=== PATIENT | female | born 1955 | race African-American/Black ===

== ENCOUNTER 2016-09-24 01:41 | Inpatient (IN) | payer OTHER, MEDICARE, MEDICAID ==
[2016-09-24] MEDS ORDERED: NS 0.9% 1000 ML* 1,000 ML IV ONE (01:58)
[2016-09-24] MEDS ORDERED: Albuterol/Ipratropium NEB.SOL* Albuterol 2.5 MG/Ipratropium 0.5 MG 3 ML INH ONE (01:58)
[2016-09-24] MEDS ORDERED: methylPREDNISolone 125 MG* 2 ML VIAL IV ONE (01:58)
[2016-09-24 02:11] LABS: Comments Flag Yes; Hematocrit 41 % (35-47); Hemoglobin 12.8 g/dl (12.0-16.0); Mean Corpuscular HGB Conc 31 g/dl (31-36); Mean Corpuscular Hemoglobin 25 pg (27-31); Mean Corpuscular Volume 82 fL (80-97); Mean Platelet Volume 9 um3 (7.4-10.4); Red Blood Count 5.05 10^6/ul (4.0-5.4); Red Cell Distribution Width 25 % (10.5-15); White Blood Count 6.4 10^3/ul (3.5-10.8)
[2016-09-24 02:12] LABS: Add Diff/Slide Review? Slide Review Added
[2016-09-24 02:21] LABS: Albumin 3.7 g/dL (3.2-5.2); BUN/Creatinine Ratio 7.5 (8-20); Calcium 8.6 mg/dL (8.6-10.3); EGFR African American 67.8 (>60); EGFR Non-African American 52.7 (>60); Potassium 3.2 mmol/L (3.5-5.0); Total Protein 6.7 g/dL (6.4-8.9)
[2016-09-24 02:34] LABS: Add Path Review? YES; Hypochromasia 1+; Platelet Morphology Large; Target Cells 1+
--- NOTE | 2016-09-24 02:47 | ED ---
radha Bello Timothy, scribed for Adair Langston MD on 09/24/16 at 0204 . Shortness of Breath - HPI Summary HPI Summary: Adrianna Robledo is a 61 yo female presenting to [facility] with SOB since 09/23/16 morning, worsening through the night. She also C/O 8/10 pain. She states her Sx are present at rest. She has self-medicated with inhalers. She is sometimes on 3L O2 at home. Her MHx includes Afib, angina, CHF, autoimplanted defibrillator, HTN, COPD, chronic renal failure, anxiety, tobacco use. - History of Current Complaint Time Seen by Provider: 09/24/16 01:48 Hx Obtained From: Patient Onset/Duration: Gradual Onset, Lasting Minutes, Lasting Hours, Still Present, Worse Since - now Current Severity: Moderate Dyspnea At: Rest - Allergy/Home Medications Allergies/Adverse Reactions: Allergies Allergy/AdvReac Type Severity Reaction Status Date / Time Aspirin Allergy Severe Difficulty Verified 09/24/16 01:55 Breathing PMH/Surg Hx/FS Hx/Imm Hx Cardiovascular History: Reports: Hx Angina, Hx Auto Implanted Cardiovert Defib - defibrillator, Hx Congestive Heart Failure, Hx Hypertension, Other Cardiovascular Problems/Disorders - FLUID IN ANKLES, 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, AFIB Respiratory History: Reports: Hx Chronic Obstructive Pulmonary Disease (COPD), Other Respiratory Problems/Disorders - ON AT NIGHT History: Reports: Hx Chronic Renal Failure Musculoskeletal History: Reports: Hx Orthopedic Injury Psychiatric History: Reports: Hx Anxiety - Cancer History Cancer Type, Location and Year: lymphoma/12/23 - Surgical History Surgery Procedure, Year, and Place: hernia repair/orif right foot Infectious Disease History: Denies: Traveled Outside the [place] in Last 30 Days - Family History Known Family History: Positive: Other - Father - [place] Negative: Cardiac Disease, Hypertension, Diabetes - Social History Alcohol Use: Occasionally Alcohol Amount: 3-4 drinks/month Hx Substance Use: No Substance Use Type: Reports: None Hx Tobacco Use: Yes Smoking Status (MU): Light Every Day Tobacco Smoker Type: Cigarettes Have You Smoked in the Last Year: Yes Review of Systems Constitutional: Negative Eyes: Negative ENT: Negative Cardiovascular: Negative Positive: Shortness Of Breath Gastrointestinal: Negative Genitourinary: Negative Musculoskeletal: Negative Skin: Negative Neurological: Negative Psychological: Normal All Other Systems Reviewed And Are Negative: Yes Physical Exam Triage Information Reviewed: Yes Vital Signs On Initial Exam: Initial Vitals Temp Pulse Resp BP Pulse Ox 97.9 F 102 29 155/97 96 09/24/16 01:44 09/24/16 01:44 09/24/16 01:44 09/24/16 01:44 09/24/16 01:44 Vital Signs Reviewed: Yes Appearance: Positive: Well-Appearing - moderate sob Skin: Positive: Warm Head/Face: Positive: Normal Head/Face Inspection Eyes: Positive: CRISTINE ENT: Positive: Hearing grossly normal Respiratory/Lung Sounds: Positive: Decreased Breath Sounds, Rales - bibasilar, Wheezes - scattered bilat Cardiovascular: Positive: RRR Abdomen Description: Positive: Nontender, Soft Bowel Sounds: Positive: Present Musculoskeletal: Positive: Strength/ROM Intact Neurological: Positive: Sensory/Motor Intact, Alert, Oriented to Person Place, Time Psychiatric: Positive: Affect/Mood Appropriate Diagnostics - Vital Signs Vital Signs Temp Pulse Resp BP Pulse Ox 09/24/16 01:44 97.9 F 102 29 155/97 96 - Laboratory Lab Results: Lab Results 09/24/16 09/24/16 Range/Units 01:57 01:57 WBC 6.4 (3.5-10.8) 10^3/ul RBC 5.05 (4.0-5.4) 10^6/ul Hgb 12.8 (12.0-16.0) g/dl Hct 41 (35-47) % MCV 82 (80-97) fL MCH 25 L (27-31) pg MCHC 31 (31-36) g/dl RDW 25 H (10.5-15) % Plt Count 148 L (150-450) 10^3/ul MPV 9 (7.4-10.4) um3 Neut % (Auto) 83.9 H (38-83) % Lymph % (Auto) 6.1 L (25-47) % [place] % (Auto) 9.3 H (1-9) % Eos % (Auto) 0.4 (0-6) % Baso % (Auto) 0.3 (0-2) % Absolute Neuts (auto) 5.3 (1.5-7.7) 10^3/ul Absolute Lymphs (auto) 0.4 L (1.0-4.8) 10^3/ul Absolute Monos (auto) 0.6 (0-0.8) 10^3/ul Absolute Eos (auto) 0 (0-0.6) 10^3/ul Absolute Basos (auto) 0 (0-0.2) 10^3/ul Absolute Nucleated RBC 0.18 10^3/ul Nucleated RBC % 2.9 Platelet Morphology Large Normal RBC Morphology Not Reportable Hypochromasia 1+ Target Cells 1+ Hem Pathologist Commnt Pending Sodium 141 (133-145) mmol/L Potassium 3.2 L (3.5-5.0) mmol/L Chloride 98 L (101-111) mmol/L Carbon Dioxide 35 H (22-32) mmol/L Anion Gap 8 (2-11) mmol/L BUN 8 (6-24) mg/dL Creatinine 1.06 H (0.51-0.95) mg/dL Est GFR ( Amer) 67.8 (>60) Est GFR (Non-Af Amer) 52.7 (>60) BUN/Creatinine Ratio 7.5 L (8-20) Glucose 127 H (70-100) mg/dL Calcium 8.6 (8.6-10.3) mg/dL Total Bilirubin 1.00 (0.2-1.0) mg/dL AST 11 L (13-39) U/L ALT 11 (7-52) U/L Alkaline Phosphatase 91 (34-104) U/L Total Protein 6.7 (6.4-8.9) g/dL Albumin 3.7 (3.2-5.2) g/dL Globulin 3.0 (2-4) g/dL Albumin/Globulin Ratio 1.2 (1-3) Result Diagrams: 09/24/16 01:57 09/24/16 01:57 Lab Statement: Any lab studies that have been ordered have been reviewed, and results considered in the medical decision making process. - Radiology CXR Xray Interpretation: Positive (See Comments) - Pulmonary vascular congestion, cardiomegaly Radiology Interpretation Completed By: ED Physician - EKG 0249 Cardiac Rate: NL - 92 BPM EKG Interpretation: NSR @ 92 BPM, PVC's. Re-Evaluation - Re-Evaluation First Eval Re-Evaluation Time: 04:45 Change: Improved - mild;ly improved but still sob with minimal exertion, will admit Course/Dx - Course Assessment/Plan: Adrianna Robledo is a 61 yo female [place] [facility] [place]B since this morning worsening throughout the day. In the ED she was given albuterol breathing treatment, Lasix, and solu-medrol, as well as IV fluids. Her CXR suggested cardiomegaly and pulmonary vascular congestion. Her EKG showed NSR with PVC's. After clinical examination, review of her imaging studies , review of her lab work, and discussion with Dr. Gutiérrez, she will be admitted to [facility] for further evaluation and treatment of COPD and CHF. - Diagnoses Differential Diagnosis/HQI/PQRI: Positive: CHF, COPD Exacerbation Provider Diagnoses: COPD (chronic obstructive pulmonary disease), CHF (congestive heart failure) - Physician Notifications Discussed Care of Patient With: 0512 - Dr. Gutiérrez (hospitalist) - discussed Pt condition, agrees to admit Pt. Instructed by Provider To: Admit As Inpatient - Critical Care Time Critical Care Time: 30-74 min Discharge - Discharge Plan Condition: Stable Disposition: ADMITTED TO [facility] Discharge Disposition Comment: admitted to [facility] for further evaluation and treatment of COPD and CHF. Referrals: Blake Stuart MD [Primary Care Provider] - The documentation as recorded by the radha zapata Timothy accurately reflects the service I personally performed and the decisions made by me, Adair Langston MD.
[2016-09-24] MEDS ORDERED: Furosemide IV* 10 MG/ML 10 ML VIAL (100 MG) IV ONE (03:40)
[2016-09-24] MEDS ORDERED: Albuterol 2.5 MG/3 ML NEB.SOL* (0.083%) INH PRN (06:33)
[2016-09-24] MEDS ORDERED: Melatonin (NF) 3 MG TAB PO PRN (06:35)
[2016-09-24] MEDS ORDERED: Ondansetron INJ* 2 MG/ML VIAL IV PRN (06:35)
--- NOTE | 2016-09-24 07:46 | RAD ---
HISTORY: Shortness of breath, substernal chest pain COMPARISONS: February 04, 2016 VIEWS: 2: Frontal dual-energy and lateral views of the chest. FINDINGS: CARDIOMEDIASTINAL SILHOUETTE: The cardiac silhouette is enlarged. The cardiomediastinal silhouette is otherwise normal. SHERLEY: The sherley are normal. PLEURA: The costophrenic angles are sharp. No pleural abnormalities are noted. LUNG PARENCHYMA: There is a diffuse reticular pattern with indistinct pulmonary vessels. ABDOMEN: The upper abdomen is clear. There is no subphrenic gas. BONES AND SOFT TISSUES: No bone or soft tissue abnormalities are noted. OTHER: A left-sided ICD is noted IMPRESSION: CARDIOMEGALY WITH PULMONARY INTERSTITIAL EDEMA
[2016-09-24] MEDS ORDERED: Potassium Chlor TAB* 10 MEQ TAB.ER PO ONE (08:08)
[2016-09-24] MEDS: Albuterol 2.5 MG/3 ML NEB.SOL* (0.083%) INH SCH ×3 (08:50→19:57)
[2016-09-24] MEDS: Tiotropium CAP.INH* CAP.INH/18 MCG INH SCH (08:50)
[2016-09-24] MEDS: Mometasone/Formoter 200/5 MDI INH SCH ×3 (08:51→20:11)
[2016-09-24] MEDS ORDERED: Spiriva Inhaler DEVICE* 1 EACH DEVICE ONE (09:00)
[2016-09-24] MEDS: Docusate CAP* 100 MG PO SCH ×2 (10:15→20:25)
[2016-09-24] MEDS: Lisinopril TAB* 10 MG PO SCH (10:16)
[2016-09-24] MEDS: Amiodarone TAB* 200 MG PO SCH (10:16)
[2016-09-24] MEDS: Carvedilol TAB* 25 MG PO SCH ×2 (10:17→20:26)
[2016-09-24] MEDS: Azithromycin IV(*) 500 MG in NS 0.9% 250 ML* 250 ML IVPB SCH (10:18)
[2016-09-24] MEDS: Spironolactone TAB* 25 MG PO SCH (10:20)
[2016-09-24] MEDS: Torsemide TAB* 20 MG PO SCH ×2 (10:20→20:26)
[2016-09-24] MEDS: traMADol TAB* 50 MG PO PRN ×2 (10:21→20:30)
[2016-09-24 11:57] LABS: Hematocrit 40 % (35-47); Hemoglobin 12.7 g/dl (12.0-16.0); Mean Corpuscular HGB Conc 32 g/dl (31-36); Mean Corpuscular Hemoglobin 26 pg (27-31); Mean Corpuscular Volume 82 fL (80-97); Mean Platelet Volume 9 um3 (7.4-10.4); Red Blood Count 4.92 10^6/ul (4.0-5.4); Red Cell Distribution Width 25 % (10.5-15); White Blood Count 4.7 10^3/ul (3.5-10.8)
[2016-09-24 12:00] LABS: Comments Flag Yes
[2016-09-24 12:14] LABS: BUN/Creatinine Ratio 9.8 (8-20); Calcium 8.4 mg/dL (8.6-10.3); EGFR African American 63.6 (>60); EGFR Non-African American 49.5 (>60); Potassium 3.3 mmol/L (3.5-5.0)
[2016-09-24] MEDS: ALPRAZolam TAB* 0.5 MG PO PRN (14:04)
[2016-09-24] MEDS: traZODone TAB* 100 MG PO SCH (20:25)
--- NOTE | 2016-09-24 22:14 | HP ---
ADMISSION HISTORY AND PHYSICAL: DATE OF ADMISSION: 09/24/16 TIME OF MY EVALUATION: 8 a.m. PRIMARY CARE PROVIDER: Blake Stuart MD. CHIEF COMPLAINT: Shortness of breath. HISTORY OF PRESENT ILLNESS: Ms. Robledo is a pleasant 61-year-old female who comes to the emergency room with a complaint of shortness of breath for the past 3 days, worsening progressively and worst at night. The patient states that her symptoms are present at rest. She is trying to use her inhalers, but these are not helping her very much. She has a dry cough. There is no sputum production. She denies any fever. She is sometimes on 3 L of oxygen at home. She did have a sick contact, specifically her girlfriend who had an upper respiratory viral infection. The patient states that she is coughing, but cannot get any mucus to come up. She denies nausea and vomiting. There has been no diarrhea. She does report diminished appetite, but has been drinking appropriately. She thinks she has been gaining weight and she saw her primary care doctor who recommended she come into the hospital. I believe he prescribed an antibiotic and I think she stated that she was taking that at home , but does not remember the name. The patient does have all of her other medications and is taking them reliably. The patient is followed by Dr. Garrido, the cupola hoist operator in the [facility] as well as Dr. Jc. Dr. Garrido follows her for congestive heart failure and I think she also has an BiV-ICD and Dr. Jc follows her for her history of lymphoma for which she is in remission. PAST MEDICAL HISTORY: 1. COPD. 2. Atrial fibrillation. 3. History of angina. 4. CHF. 5. Auto implanted defibrillator. 6. Hypertension. 7. Chronic renal failure. 8. Anxiety. 9. Tobacco abuse - recently quit. ADDITIONAL PAST MEDICAL HISTORY: 1. Lymphoma, not currently undergoing treatment. 2. Slight congestive heart failure with ejection fraction noted between 20% to 25% with history of atrial fibrillation and ventricular tachycardia. 3. In-situ biventricular pacemaker. 4. Morbid obesity. 5. Obstructive sleep apnea - on CPAP. 6. History of continued nicotine use. 7. CKD - stage 3. 8. Hyperlipidemia. OUTPATIENT MEDICATIONS: 1. Multivitamin 1 tab by mouth twice daily. 2. Potassium chloride 40 mEq by mouth daily. 3. Alprazolam 0.5 mg by mouth 3 times daily. 4. Cordarone 200 mg by mouth daily (amiodarone). 5. Coreg 50 mg by mouth twice daily. 6. Lisinopril 20 mg by mouth daily. 7. Spironolactone 50 mg by mouth daily. 8. Torsemide 20 mg by mouth twice daily. 9. Tramadol 50 to 100 mg by mouth every 6 hours p.r.n. pain. 10. Trazodone 100 mg by mouth at bedtime. ALLERGIES: ASPIRIN. SOCIAL HISTORY: She is retired. Her healthcare proxy is Dieudonne Robledo per the medical record. There is no report of alcohol or drug use. She apparently occasionally still smokes. REVIEW OF SYSTEMS: The patient denies any additional symptoms through a review of 14 systems. All of the pertinent positives are mentioned in the HPI and past medical history. PHYSICAL EXAMINATION ON ADMISSION GENERAL APPEARANCE: Elderly-appearing woman appears stated age. Awake, alert, and oriented x3, answering questions appropriately. She is in mild respiratory distress, but not extremis. VITALS: Temperature 97.9 degrees Fahrenheit, pulse 80s to 90s, respirations in the high teens to low 20s during my exam, oxygen saturation 96% 2 L, blood pressure 140s to 150s/80s to 90s. NECK: Supple. No elevated JVD. Midline trachea. Normal thyroid. No carotid bruits. CHEST: Distant breath sounds with faint and expiratory wheezing. LUNGS: Otherwise, clear. HEART: Regular rate and rhythm. Pacemaker in place on her left supraclavicular fossa. ABDOMEN: Obese and nontender. No abnormal distention. SKIN: Dry and intact. EXTREMITIES: Her lower extremities are swollen with 2+ edema bilaterally. NEUROLOGIC AND PSYCHIATRIC: Her neurology and psychiatric examination are within normal limits with no sensory, motor, or proprioception component deficiencies and a normal affect with no acute anxiety or depression. DIAGNOSTIC STUDIES AND LABORATORY DATA: Includes a EKG that was reviewed by me , done at 0249 hours on September 14 showing a modestly widened QRS complex. She is in sinus rhythm. Heart rate is 92 beats per minute. There is no evidence of active ischemia. There are several PVCs noted. She has also a chest x-ray done at 0158 hours on 09/24/16 showing cardiomegaly with pulmonary interstitial edema. White blood cell count 6.4, hemoglobin 12.8, platelets 148. Chemistry significant for potassium low at 3.2, chloride 98, bicarb 35. BUN 8, creatinine 1.06 - near baseline. BUN to creatinine ratio was low at 7.5. Glucose 127. AST and ALT are both 11. BNP elevated at 564. Protein levels preserved. IMPRESSION: Ms. Robledo is a 61-year-old female presenting with a viral upper respiratory infection versus fluid retention and weight gain consistent with mild congestive heart failure. For both these reasons, the patient is being admitted to the hospital. She has already received IV Lasix in the emergency room. The patient is being empirically treated with IV steroids and antibiotics to include ceftriaxone and azithromycin for her upper respiratory infection and resultant chronic obstructive pulmonary disease exacerbation. The patient will be on supplemental oxygen. She is also receiving q.4 hours DuoNebs and further decision will be based on her clinical course. Her labs are generally unremarkable and her potassium will be repleted and they will be followed. Her BNP at 564 is high for the patient and perhaps this is reflective of her fluid retention and baseline CHF. TIME SPENT: Total time taken to admit Ms. Robledo was 45 minutes; greater than half that time was spent going over the plan of care and answering the patient' s questions. CC: Blake Stuart MD* [id number]/[facility] #: [id number] FLOYD
[2016-09-25] MEDS: ALPRAZolam TAB* 0.5 MG PO PRN ×3 (01:57→23:07)
[2016-09-25] MEDS: Albuterol 2.5 MG/3 ML NEB.SOL* (0.083%) INH SCH ×4 (02:02→19:38)
[2016-09-25] MEDS: Heparin VIAL(*) 5000 UNITS/ML VIAL (FIVE THOUSAND) SUBCUT SCH ×3 (06:47→23:09)
[2016-09-25] MEDS: Omeprazole CAP* 20 MG PO SCH (06:49)
[2016-09-25 08:30] LABS: Hematocrit 37 % (35-47); Hemoglobin 11.6 g/dl (12.0-16.0); Mean Corpuscular HGB Conc 31 g/dl (31-36); Mean Corpuscular Hemoglobin 26 pg (27-31); Mean Corpuscular Volume 83 fL (80-97); Mean Platelet Volume 9 um3 (7.4-10.4); Red Blood Count 4.46 10^6/ul (4.0-5.4)
[2016-09-25 08:34] LABS: Comments Flag Yes; Red Cell Distribution Width 24 % (10.5-15)
[2016-09-25] MEDS: Azithromycin IV(*) 500 MG in NS 0.9% 250 ML* 250 ML IVPB SCH (08:45)
[2016-09-25 08:49] LABS: BUN/Creatinine Ratio 16.7 (8-20); Calcium 7.8 mg/dL (8.6-10.3); EGFR African American 55.5 (>60); EGFR Non-African American 43.2 (>60); Potassium 3.4 mmol/L (3.5-5.0)
[2016-09-25] MEDS: Docusate CAP* 100 MG PO SCH ×2 (08:49→23:06)
[2016-09-25] MEDS: Multivitamins/Minerals TAB PO SCH (08:49)
[2016-09-25] MEDS: Lisinopril TAB* 10 MG PO SCH (08:49)
[2016-09-25] MEDS: Acetaminophen TAB* 325 MG PO PRN ×2 (08:50→16:28)
[2016-09-25] MEDS: Spironolactone TAB* 25 MG PO SCH (08:50)
[2016-09-25] MEDS: Potassium Chlor TAB* 20 MEQ TAB.ER PO SCH (08:50)
[2016-09-25] MEDS: Amiodarone TAB* 200 MG PO SCH (08:50)
[2016-09-25] MEDS: Torsemide TAB* 20 MG PO SCH ×2 (08:50→23:06)
[2016-09-25] MEDS: Carvedilol TAB* 25 MG PO SCH ×2 (08:50→23:05)
[2016-09-25] MEDS ORDERED: Potassium Chlor TAB* 10 MEQ TAB.ER PO ONE (08:51)
[2016-09-25] MEDS: Mometasone/Formoter 200/5 MDI INH SCH ×2 (09:25→19:43)
[2016-09-25] MEDS: Tiotropium CAP.INH* CAP.INH/18 MCG INH SCH (09:25)
--- NOTE | 2016-09-25 15:47 | PN ---
Subjective Date of Service: 09/25/16 Interval History: . feels better still SOB with movement. has walked to the BR, but not further. unsteady on feet. asking medical staff director to walk patient goal for dc tomorrow labs c/w known CRF... . Family History: Unchanged from Admission Social History: Unchanged from Admission Past Medical History: Unchanged from Admission Objective Active Medications: . Acetaminophen (Tylenol Tab*) 650 mg PO Q6H PRN PRN Reason: FEVER/PAIN Last Admin: 09/25/16 08:50 Dose: 650 mg Albuterol (Ventolin 2.5 Mg/3 Ml Neb.Lois*) 2.5 mg INH Q2H PRN PRN Reason: SOB/WHEEZING Albuterol (Ventolin 2.5 Mg/3 Ml Neb.Lois*) 2.5 mg INH [id number] AWAKE [facility] Last Admin: 09/25/16 14:19 Dose: 2.5 mg Alprazolam (Xanax Tab*) 0.5 mg PO TID PRN PRN Reason: ANXIETY Last Admin: 09/25/16 01:57 Dose: 0.5 mg Amiodarone HCl (Cordarone Tab*) 200 mg PO DAILY [facility] Last Admin: 09/25/16 08:50 Dose: 200 mg Carvedilol (Coreg Tab*) 50 mg PO BID [facility] Last Admin: 09/25/16 08:50 Dose: 50 mg Docusate Sodium (Colace Cap*) 200 mg PO BID [facility] Last Admin: 09/25/16 08:49 Dose: 200 mg Heparin Sodium (Porcine) (Heparin Vial(*)) 5,000 units SUBCUT Q8HR [facility] Last Admin: 09/25/16 13:27 Dose: 5,000 units Azithromycin 500 mg/ Sodium (Chloride) 250 mls @ 250 mls/hr IVPB Q24H [facility] Last Admin: 09/25/16 08:45 Dose: 250 mls/hr Lisinopril (Prinivil Tab*) 20 mg PO DAILY [facility] Last Admin: 09/25/16 08:49 Dose: 20 mg Melatonin (Melatonin (Nf)) 3 mg PO BEDTIME PRN; Protocol PRN Reason: Sleep Last Admin: 09/25/16 01:57 Dose: 3 mg Mometasone Furoate/Formoterol Fumar (Dulera 200/5 Mdi*) 2 puff INH BID [facility] Last Admin: 09/25/16 09:25 Dose: 2 puff Multivitamins/Minerals (Theragran/Minerals Tab*) 1 tab PO DAILY [facility] Last Admin: 09/25/16 08:49 Dose: 1 tab Omeprazole (Prilosec Cap*) 20 mg PO DAILY@0600 [facility] Last Admin: 09/25/16 06:49 Dose: 20 mg Ondansetron HCl (Zofran Inj*) 4 mg IV Q6H PRN PRN Reason: NAUSEA Potassium Chloride (Klor Con Er Tab*) 40 meq PO DAILY [facility] Last Admin: 09/25/16 08:50 Dose: 40 meq Spironolactone (Aldactone Tab*) 50 mg PO DAILY [facility] Last Admin: 09/25/16 08:50 Dose: 50 mg Tiotropium [place] (Spiriva Cap.Inh*) 1 cap INH DAILY [facility] Last Admin: 09/25/16 09:25 Dose: 1 cap Torsemide (Demadex*) 20 mg PO BID [facility] Last Admin: 09/25/16 08:50 Dose: 20 mg Tramadol HCl (Ultram*) 50 mg PO Q6HR PRN PRN Reason: PAIN Last Admin: 09/24/16 20:30 Dose: 50 mg Trazodone HCl (Desyrel Tab*) 100 mg PO BEDTIME [facility] Last Admin: 09/24/16 20:25 Dose: 100 mg . Vital Signs 09/24/16 09/24/16 09/24/16 16:04 16:18 20:03 Temperature Pulse Rate 75 Respiratory 20 Rate Blood Pressure (mmHg) O2 Sat by Pulse 93 95 Oximetry 09/24/16 09/24/16 09/24/16 20:07 20:09 20:30 Temperature Pulse Rate 75 Respiratory 21 Rate Blood Pressure (mmHg) O2 Sat by Pulse 93 93 Oximetry 09/24/16 09/25/16 09/25/16 22:30 01:00 01:57 Temperature 97.8 F Pulse Rate 64 Respiratory 20 17 20 Rate Blood Pressure 151/98 (mmHg) O2 Sat by Pulse 90 Oximetry 09/25/16 09/25/16 09/25/16 02:05 03:36 03:57 Temperature 97.4 F Pulse Rate 75 64 Respiratory 16 20 Rate Blood Pressure 127/71 (mmHg) O2 Sat by Pulse 93 100 Oximetry 09/25/16 09/25/16 09/25/16 08:00 08:35 09:32 Temperature Pulse Rate 59 67 Respiratory 18 22 16 Rate Blood Pressure 131/72 (mmHg) O2 Sat by Pulse 99 98 Oximetry Oxygen Devices in Use Now: Nasal Cannula Appearance: NAD Eyes: No Scleral Icterus Ears/Nose/Mouth/Throat: NL Teeth, Lips, Gums Neck: NL Appearance and Movements; NL JVP Respiratory: Symmetrical Chest Expansion and Respiratory Effort Cardiovascular: NL Sounds; No Murmurs; No JVD Abdominal: NL Sounds; No Tenderness; No Distention Lymphatic: No Cervical Adenopathy Extremities: No Clubbing, Cyanosis Skin: No Rash or Ulcers Neurological: Alert and Oriented x 3 Lines/Tubes/Other Access: Clean, Dry and Intact Peripheral IV Nutrition: Taking PO's Result Diagrams: 09/25/16 08:00 09/25/16 08:00 Assess/Plan/Problems-Billing . Assessment: 61 yo female with SOB, cough and COPD exacerbation secondary to upper respiratory infection. Current Medications: - Acetaminophen (Tylenol Tab) 650 mg PO Q6H PRN FEVER/PAIN - Alprazolam (Xanax Tab) 0.5 mg PO TID PRN ANXIETY - Amiodarone HCl (Cordarone Tab) 200 mg PO DAILY - Carvedilol (Coreg Tab*) 50 mg PO BID - Docusate Sodium (Colace Cap*) 200 mg PO BID - Heparin Sodium (Porcine) (Heparin Vial) 5,000 units SUBCUT Q8HR - Albuterol (Ventolin 2.5 Mg/3 Ml Neb.Lois) 2.5 mg INH Q2H PRN SOB/WHEEZING - Albuterol (Ventolin 2.5 Mg/3 Ml Neb.Lois) 2.5 mg INH [id number] AWAKE - Azithromycin 500 mg IVPB Q24H - Mometasone Furoate/Formoterol Fumar (Dulera 200/5 Mdi) 2 puff INH BID - Lisinopril (Prinivil Tab) 20 mg PO DAILY - Melatonin (Melatonin) 3 mg PO BEDTIME PRN Sleep - Multivitamins/Minerals (Theragran/Minerals Tab) 1 tab PO DAILY - Omeprazole (Prilosec Cap) 20 mg PO DAILY@0600 - Ondansetron HCl (Zofran Inj) 4 mg IV Q6H PRN NAUSEA - Potassium Chloride (Klor Con Er Tab) 40 meq PO DAILY - Spironolactone (Aldactone Tab) 50 mg PO DAILY - Tiotropium [place] (Spiriva Cap.Inh) 1 cap INH DAILY - Torsemide (Demadex) 20 mg PO BID - Tramadol HCl (Ultram) 50 mg PO Q6HR PRN PAIN - Trazodone HCl (Desyrel Tab) 100 mg PO BEDTIME - Patient Problems (1) COPD exacerbation Current Visit: Yes Status: Acute Priority: High Code(s): J44.1 - CHRONIC OBSTRUCTIVE PULMONARY DISEASE W (ACUTE) EXACERBATION Comment: - Albuterol (Ventolin 2.5 Mg/3 Ml Neb.Lois) 2.5 mg INH Q2H PRN SOB/WHEEZING - Albuterol (Ventolin 2.5 Mg/3 Ml Neb.Lois) 2.5 mg INH [id number] AWAKE - Azithromycin 500 mg IVPB Q24H - Mometasone Furoate/Formoterol Fumar (Dulera 200/5 Mdi) 2 puff INH BID - Prednisone 40 mg PO today -- quick taper over next 3-5 days. (2) CKD (chronic kidney disease), stage III Current Visit: No Status: Acute Priority: High Code(s): N18.3 - CHRONIC KIDNEY DISEASE, STAGE 3 (MODERATE) SNOMED Code(s): 248759987 Comment: - Known CKD - evident when diuresed (3) Cardiomyopathy Current Visit: No Status: Acute Priority: High Code(s): I42.9 - CARDIOMYOPATHY, UNSPECIFIED Comment: LVEF 20-25% in past. Seems compensated now. BNP chronically elevated. recheck 09/26. Continue carvedilol, spironolactone and torsemide, lisinopril Follow Creatinine (4) Morbid obesity Current Visit: No Status: Acute Code(s): E66.01 - MORBID (SEVERE) OBESITY DUE TO EXCESS CALORIES Comment: Diagnosis noted. (5) Shortness of breath Current Visit: No Status: Acute Priority: High Code(s): R06.02 - SHORTNESS OF BREATH Comment: - Mainly secondary to COPD Exacerbation.
[2016-09-25] MEDS ORDERED: Potassium Chlor TAB* 20 MEQ TAB.ER PO ONE (16:00)
[2016-09-25] MEDS ORDERED: predniSONE TAB* 20 MG PO ONE (16:18)
[2016-09-25] MEDS: traMADol TAB* 50 MG PO PRN ×2 (16:28→23:08)
[2016-09-25] MEDS ORDERED: NS 0.9% 500 ML BAG* 500 ML IV ONE (17:00)
[2016-09-25] MEDS: Loperamide CAP* 2 MG PO PRN ×2 (18:43→23:12)
[2016-09-25] MEDS: traZODone TAB* 100 MG PO SCH (23:06)
[2016-09-26] MEDS: Albuterol 2.5 MG/3 ML NEB.SOL* (0.083%) INH SCH ×3 (01:47→12:57)
[2016-09-26] MEDS: Omeprazole CAP* 20 MG PO SCH (04:31)
[2016-09-26] MEDS: Heparin VIAL(*) 5000 UNITS/ML VIAL (FIVE THOUSAND) SUBCUT SCH ×2 (04:31→16:16)
[2016-09-26] MEDS: traMADol TAB* 50 MG PO PRN ×2 (05:15→11:32)
[2016-09-26] MEDS: Docusate CAP* 100 MG PO SCH (07:17)
[2016-09-26] MEDS: Mometasone/Formoter 200/5 MDI INH SCH (07:17)
[2016-09-26] MEDS: Tiotropium CAP.INH* CAP.INH/18 MCG INH SCH (07:17)
[2016-09-26 07:32] LABS: BUN/Creatinine Ratio 21.9 (8-20); Calcium 7.8 mg/dL (8.6-10.3); EGFR African American 62.3 (>60); EGFR Non-African American 48.5 (>60); Magnesium 1.3 mg/dL (1.9-2.7); Phosphorus 3.5 mg/dL (2.5-5.0); Potassium 3.7 mmol/L (3.5-5.0)
[2016-09-26 07:38] VITALS: BP 145/77
[2016-09-26] MEDS ORDERED: predniSONE TAB* 10 MG PO SCH (08:30)
[2016-09-26] MEDS: Multivitamins/Minerals TAB PO SCH (08:49)
[2016-09-26] MEDS: Azithromycin IV(*) 500 MG in NS 0.9% 250 ML* 250 ML IVPB SCH (08:49)
[2016-09-26] MEDS: Amiodarone TAB* 200 MG PO SCH (08:49)
[2016-09-26] MEDS: Lisinopril TAB* 10 MG PO SCH (08:56)
[2016-09-26] MEDS: Carvedilol TAB* 25 MG PO SCH (08:56)
[2016-09-26] MEDS: Potassium Chlor TAB* 20 MEQ TAB.ER PO SCH (08:57)
[2016-09-26] MEDS: Torsemide TAB* 20 MG PO SCH (08:57)
[2016-09-26] MEDS: Spironolactone TAB* 25 MG PO SCH (08:57)
[2016-09-26] MEDS: ALPRAZolam TAB* 0.5 MG PO PRN (08:59)
[2016-09-27] MEDS ORDERED: Azithromycin TAB* 250 MG PO SCH (07:30)
--- NOTE | 2016-09-27 12:09 | DS ---
CC: Blake Stuart MD DISCHARGE SUMMARY: DATE OF ADMISSION: 09/24/16 DATE OF DISCHARGE: 09/26/16 PRIMARY DIAGNOSIS: Chronic obstructive pulmonary disease exacerbation. SECONDARY DIAGNOSES: 1. Atrial fibrillation. 2. Coronary artery disease with history of angina. 3. Congestive heart failure, last ejection fraction recorded 20% to 25%. 4. AICD, due to history of ventricular tachycardia. 5. Hypertension. 6. Chronic kidney disease. 7. Anxiety. 8. Recent tobacco abuse 2 weeks ago. 9. Lymphoma in remission for 5 years. 10. Morbid obesity. 11. Obstructive sleep apnea. 12. Hyperlipidemia. MEDICATIONS ON DISCHARGE: 1. Azithromycin 250 mg p.o. every day for 3 days. 2. Colace 200 mg p.o. b.i.d. 3. Melatonin 3 mg p.o. at bedtime. 4. Dulera 200/5 two puffs inhaled twice a day. 5. Nicotine patch 21 mg topically q.24 hours. 6. Omeprazole 20 mg p.o. every day. 7. Spiriva 1 inhalation every day. 8. Prednisone 30 mg p.o. every day for 5 days and then 20 mg every day for 2 days and then 10 mg every day for 2 days and then stop. 9. Albuterol nebulizer q.6 hours as needed for wheezing. 10. Lisinopril 20 mg p.o. every day. 11. Tramadol 50 mg 1 to 2 tabs p.o. q.6 hours p.r.n. pain. 12. Torsemide 20 mg p.o. q.a.m. and early afternoon, b.i.d. 13. Spironolactone 50 mg p.o. every day. 14. Multivitamin 1 tablet p.o. every day. 15. Carvedilol 50 mg p.o. b.i.d. 16. Amiodarone 200 mg p.o. every day. 17. Potassium chloride 40 mEq p.o. every day. 18. Trazodone 100 mg p.o. at bedtime. 19. Alprazolam 0.5 mg p.o. t.i.d. p.r.n. anxiety. ALLERGIES: ASPIRIN. HOSPITAL COURSE: The patient with history of CHF and COPD was admitted with dyspnea progressive for 3 days. She reports at home she does not have any daily inhalers such as steroid, long-acting beta agonists or anticholinergics. She states she is compliant with CPAP, but does not have a nebulizer. The patient's initial chest x-ray showed cardiomegaly with some interstitial edema. No focal infiltrates were seen. Due to elevation of her BNP at 564, she was treated with intravenous Lasix in the emergency room. She was also treated with intravenous steroids and antibiotics for COPD exacerbation. She did not require any diuresis on the medical floor during her 48 hours of admission. Her BNP was repeated at 330. During the hospital stay, she had a low potassium at 3.2 and this was corrected with oral supplementation up to 3.7 on the day of discharge. She otherwise has normal white count, normal hematocrit, and slightly low platelet count of 128. Her EKG on admission showed normal sinus rhythm with frequent PVCs. There were no ischemic changes. On discharge, the patient was advised to follow a low-salt diet. She is advised to see primary care within the next 5 days. The patient is also planning to pursue bariatric surgery as her dyspnea is multifactorial including morbid obesity as well as heart failure and COPD. I encouraged her to continue her efforts to stay off cigarettes as well and she is encouraged to continue using nicotine patch. Her activity should be as tolerated. TIME SPENT: Forty minutes was spent with the patient in discussing discharge and planning for home care. [id number]/[facility] #: [id number] [place]
== END 2016-09-26 16:50 | disposition home or self-care (01) | DRG 191 ==
LOC: ED 01:41 → MED 06:47
PROVIDERS: ADMIT Hospitalist; ATTEND Internal Medicine
DX: J44.1 Chronic obstructive pulmonary disease with (acute) exacerbation (principal); I13.0 Hypertensive heart and chronic kidney disease with heart failure and stage 1 through stage 4 chronic kidney disease, or unspecified chronic kidney disease; I47.2 Ventricular tachycardia; I42.9 Cardiomyopathy, unspecified; I50.9 Heart failure, unspecified; Z68.43 Body mass index [BMI] 50.0-59.9, adult; Z99.81 Dependence on supplemental oxygen; J06.9 Acute upper respiratory infection, unspecified; I48.91 Unspecified atrial fibrillation; I25.10 Atherosclerotic heart disease of native coronary artery without angina pectoris; N18.3 Chronic kidney disease, stage 3 (moderate); F41.9 Anxiety disorder, unspecified; E66.01 Morbid (severe) obesity due to excess calories; G47.33 Obstructive sleep apnea (adult) (pediatric); E78.5 Hyperlipidemia, unspecified; F17.210 Nicotine dependence, cigarettes, uncomplicated; Z85.72 Personal history of non-Hodgkin lymphomas; Z95.810 Presence of automatic (implantable) cardiac defibrillator; Z79.899 Other long term (current) drug therapy; Z88.6 Allergy status to analgesic agent
CPT/HCPCS: 36415; 71020; 80048; 80053; 83735; 83880; 84100; 85025; 85027; 85060; 93005; 94640; 94760; 99406; A9270-GY; J0456; J1644; J1940; J2930; J7512

== ENCOUNTER 2017-03-26 11:44 | Inpatient (IN) | payer OTHER, MEDICARE ==
[2017-03-26] MEDS ORDERED: Albuterol/Ipratropium NEB.SOL* Albuterol 2.5 MG/Ipratropium 0.5 MG 3 ML INH ONE (12:15)
[2017-03-26] MEDS ORDERED: methylPREDNISolone 125 MG* 2 ML VIAL IV ONE (12:15)
--- NOTE | 2017-03-26 12:47 | RAD ---
Indication: Shortness of breath, cough. Single frontal view of the chest performed at 1224 hours was reviewed. Comparison is made with previous exam dated September 24, 2016. Cardiomegaly is noted. Pacemaker leads are in place. Interstitial edema consistent with vascular congestion is noted. No alveolar consolidation is noted. IMPRESSION: CARDIOMEGALY WITH INTERSTITIAL EDEMA CONSISTENT WITH CHF. PACEMAKER LEADS ARE IN PLACE.
[2017-03-26] MEDS ORDERED: Furosemide IV* 10 MG/ML 10 ML VIAL (100 MG) IV ONE (12:55)
[2017-03-26 13:26] LABS: Troponin I 0.01 ng/mL (<0.04)
[2017-03-26 13:29] LABS: Albumin 3.9 g/dL (3.2-5.2); BUN/Creatinine Ratio 11.1 (8-20); Calcium 8.7 mg/dL (8.6-10.3); EGFR African American 51.3 (>60); EGFR Non-African American 39.9 (>60); Globulin 3.6 g/dL (2-4); Total Bilirubin 0.6 mg/dL (0.2-1.0); Total Protein 7.5 g/dL (6.4-8.9)
[2017-03-26 13:36] LABS: Comments Flag Yes; Hematocrit 40 % (35-47); Hemoglobin 12.5 g/dl (12.0-16.0); Mean Corpuscular HGB Conc 32 g/dl (31-36); Mean Corpuscular Hemoglobin 26 pg (27-31); Mean Corpuscular Volume 83 fL (80-97); Mean Platelet Volume 9 um3 (7.4-10.4); Red Blood Count 4.79 10^6/ul (4.0-5.4); Red Cell Distribution Width 22 % (10.5-15); White Blood Count 4.5 10^3/ul (3.5-10.8)
[2017-03-26 13:54] LABS: Potassium 3.8 mmol/L (3.5-5.0)
[2017-03-26] MEDS ORDERED: Acetaminophen TAB* 325 MG PO PRN (14:47)
[2017-03-26] MEDS ORDERED: Mometasone/Formoter 200/5 MDI INH PRN (15:03)
--- NOTE | 2017-03-26 15:14 | ED ---
Tammy Bello Alfonso, scribed for Italo Faulkner MD on 03/26/17 at 1211 . Complex/Multi-Sys Presentation - HPI Summary HPI Summary: This patient is a 61 year old F presenting to [facility] with a chief complaint of left rib pain since 2 weeks ago. The patient rates the pain 9/10 in severity. Symptoms aggravated by coughing. Symptoms alleviated by nothing. Symptoms not alleviated by Vicks rub. Patient reports neck pain, shoulder pain, productive coughing (yellow phlegm), dyspnea, and SOB. Tobacco abuse disorder. - History Of Current Complaint Chief Complaint: EDShortnessOfBreath Time Seen by Provider: 03/26/17 11:56 Hx Obtained From: Patient Onset/Duration: Gradual Onset, Lasting Weeks - 2, Still Present Timing: Constant Severity Currently: Severe - 9/10 pain Aggravating Factor(s): coughing Alleviating Factor(s): nothing Associated Signs And Symptoms: Positive: Other - neck pain, shoulder pain, productive coughing (yellow phlegm), dyspnea, and SOB - Allergies/Home Medications Allergies/Adverse Reactions: Allergies Allergy/AdvReac Type Severity Reaction Status Date / Time Aspirin Allergy Severe Difficulty Verified 09/24/16 01:55 Breathing PMH/Surg Hx/FS Hx/Imm Hx Cardiovascular History: Reports: Hx Angina, Hx Auto Implanted Cardiovert Defib - defibrillator, Hx Congestive Heart Failure, Hx Hypertension, Other Cardiovascular Problems/Disorders - FLUID IN ANKLES, 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, AFIB Respiratory History: Reports: Hx Chronic Obstructive Pulmonary Disease (COPD), Other Respiratory Problems/Disorders - ON 02 AT NIGHT History: Reports: Hx Chronic Renal Failure Musculoskeletal History: Reports: Hx Orthopedic Injury Sensory History: Reports: Hx Contacts or Glasses Denies: Hx Hearing Aid Opthamlomology History: Reports: Hx Contacts or Glasses Psychiatric History: Reports: Hx Anxiety - Cancer History Cancer Type, Location and Year: lymphoma/12/23 - Surgical History Surgery Procedure, Year, and Place: hernia repair/orif right foot Infectious Disease History: No Infectious Disease History: Denies: Traveled Outside the [place] in Last 30 Days - Family History Known Family History: Positive: Other - Father - [place] Negative: Cardiac Disease, Hypertension, Diabetes - Social History Alcohol Use: Rare Alcohol Amount: 3-4 drinks/month Hx Substance Use: No Substance Use Type: Reports: None Hx Tobacco Use: Yes Smoking Status (MU): Light Every Day Tobacco Smoker Type: Cigarettes Have You Smoked in the Last Year: Yes Review of Systems Positive: Shortness Of Breath, Cough, Other - dyspnea Positive: Other - left rib pain, neck pain, shoulder pain All Other Systems Reviewed And Are Negative: Yes Physical Exam Triage Information Reviewed: Yes Vital Signs On Initial Exam: Initial Vitals Temp Pulse Resp BP Pulse Ox 98.2 F 103 20 146/108 77 03/26/17 11:46 03/26/17 11:46 03/26/17 11:46 03/26/17 11:46 03/26/17 11:46 Vital Signs Reviewed: Yes Appearance: Positive: Well-Appearing, No Pain Distress, Obese Skin: Positive: Warm, Skin Color Reflects Adequate Perfusion, Dry Head/Face: Positive: Normal Head/Face Inspection Eyes: Positive: Normal ENT: Positive: Normal ENT inspection Neck: Positive: Supple, Nontender Respiratory/Lung Sounds: Positive: Breath Sounds Present, Other - Expiratory wheezing in all lung clark. Cardiovascular: Positive: Tachycardia - Borderline Abdomen Description: Positive: Nontender, Soft Bowel Sounds: Positive: Present Musculoskeletal: Positive: Normal Neurological: Positive: Normal, Sensory/Motor Intact, Alert, Oriented to Person Place, Time, CN Intact II-III Psychiatric: Positive: Normal, Affect/Mood Appropriate Diagnostics - Vital Signs Vital Signs Temp Pulse Resp BP Pulse Ox 03/26/17 11:46 98.2 F 103 20 146/108 77 - Laboratory Lab Results: Lab Results 03/26/17 03/26/17 03/26/17 Range/Units 12:50 12:50 12:50 WBC 4.5 (3.5-10.8) 10^3/ul RBC 4.79 (4.0-5.4) 10^6/ul Hgb 12.5 (12.0-16.0) g/dl Hct 40 (35-47) % MCV 83 (80-97) fL MCH 26 L (27-31) pg MCHC 32 (31-36) g/dl RDW 22 H (10.5-15) % Plt Count 230 (150-450) 10^3/ul MPV 9 (7.4-10.4) um3 Neut % (Auto) 80.6 (38-83) % Lymph % (Auto) 7.1 L (25-47) % [place] % (Auto) 10.5 H (1-9) % Eos % (Auto) 0.8 (0-6) % Baso % (Auto) 1.0 (0-2) % Absolute Neuts (auto) 3.7 (1.5-7.7) 10^3/ul Absolute Lymphs (auto) 0.3 L (1.0-4.8) 10^3/ul Absolute Monos (auto) 0.5 (0-0.8) 10^3/ul Absolute Eos (auto) 0 (0-0.6) 10^3/ul Absolute Basos (auto) 0 (0-0.2) 10^3/ul Absolute Nucleated RBC 0.24 10^3/ul Nucleated RBC % 5.4 INR (Anticoag Therapy) (0.89-1.11) Sodium 136 (133-145) mmol/L Potassium 3.8 (3.5-5.0) mmol/L Chloride 95 L (101-111) mmol/L Carbon Dioxide 35 H (22-32) mmol/L Anion Gap 6 (2-11) mmol/L BUN 15 (6-24) mg/dL Creatinine 1.35 H (0.51-0.95) mg/dL Est GFR ( Amer) 51.3 (>60) Est GFR (Non-Af Amer) 39.9 (>60) BUN/Creatinine Ratio 11.1 (8-20) Glucose 94 (70-100) mg/dL Lactic Acid 1.3 (0.5-2.0) mmol/L Calcium 8.7 (8.6-10.3) mg/dL Total Bilirubin 0.60 (0.2-1.0) mg/dL AST 13 (13-39) U/L ALT 14 (7-52) U/L Alkaline Phosphatase 75 (34-104) U/L Troponin I 0.01 (<0.04) ng/mL B-Natriuretic Peptide ( - 100) pg/mL Total Protein 7.5 (6.4-8.9) g/dL Albumin 3.9 (3.2-5.2) g/dL Globulin 3.6 (2-4) g/dL Albumin/Globulin Ratio 1.1 (1-3) 03/26/17 03/26/17 Range/Units 12:50 12:50 WBC (3.5-10.8) 10^3/ul RBC (4.0-5.4) 10^6/ul Hgb (12.0-16.0) g/dl Hct (35-47) % MCV (80-97) fL MCH (27-31) pg MCHC (31-36) g/dl RDW (10.5-15) % Plt Count (150-450) 10^3/ul MPV (7.4-10.4) um3 Neut % (Auto) (38-83) % Lymph % (Auto) (25-47) % [place] % (Auto) (1-9) % Eos % (Auto) (0-6) % Baso % (Auto) (0-2) % Absolute Neuts (auto) (1.5-7.7) 10^3/ul Absolute Lymphs (auto) (1.0-4.8) 10^3/ul Absolute Monos (auto) (0-0.8) 10^3/ul Absolute Eos (auto) (0-0.6) 10^3/ul Absolute Basos (auto) (0-0.2) 10^3/ul Absolute Nucleated RBC 10^3/ul Nucleated RBC % INR (Anticoag Therapy) 0.95 (0.89-1.11) Sodium (133-145) mmol/L Potassium (3.5-5.0) mmol/L Chloride (101-111) mmol/L Carbon Dioxide (22-32) mmol/L Anion Gap (2-11) mmol/L BUN (6-24) mg/dL Creatinine (0.51-0.95) mg/dL Est GFR ( Amer) (>60) Est GFR (Non-Af Amer) (>60) BUN/Creatinine Ratio (8-20) Glucose (70-100) mg/dL Lactic Acid (0.5-2.0) mmol/L Calcium (8.6-10.3) mg/dL Total Bilirubin (0.2-1.0) mg/dL AST (13-39) U/L ALT (7-52) U/L Alkaline Phosphatase (34-104) U/L Troponin I (<0.04) ng/mL B-Natriuretic Peptide 363 H ( - 100) pg/mL Total Protein (6.4-8.9) g/dL Albumin (3.2-5.2) g/dL Globulin (2-4) g/dL Albumin/Globulin Ratio (1-3) Result Diagrams: 03/26/17 12:50 03/26/17 12:50 Lab Statement: Any lab studies that have been ordered have been reviewed, and results considered in the medical decision making process. - Radiology CXR Radiology Interpretation Completed By: Radiologist - CARDIOMEGALY WITH INTERSTITIAL EDEMA CONSISTENT WITH CHF. PACEMAKER LEADS ARE IN PLACE. ED physician has reviewed this radiology report and agrees. - EKG 1212 Cardiac Rate: NL - BPM 93 EKG Rhythm: Sinus Rhythm EKG Interpretation: NAC Complex Multi-Symp Course/Dx Course Of Treatment: Ms. Robledo presented from her PMD's office in respiratory distress with a low SPO2 on RA and tachycardia. She has been coughing up yellow sputum for a few days. She was found to have some CHF and no obvious pneumonia. Her wheezing improved with a neb. - Diagnoses Provider Diagnoses: CHF (congestive heart failure), Bronchitis - Physician Notifications Discussed Care Of Patient With: Karmen Zepeda Time Discussed With Above Provider: 14:12 Instructed by Provider To: Other - Consulted Dr. Zepeda (hospitalist) who agrees to admit. Discharge - Discharge Plan Condition: Stable Disposition: ADMITTED TO [facility] documentation as recorded by the Tammy zapata Alfonso accurately reflects the service I personally performed and the decisions made by me, Italo Faulkner MD.
[2017-03-26] MEDS: traMADol TAB* 50 MG PO PRN (16:00)
[2017-03-26] MEDS: ALPRAZolam TAB* 0.5 MG PO PRN (16:00)
[2017-03-26] MEDS: Furosemide IV* 10 MG/ML VIAL (40 MG) IV SLOW PU SCH (17:23)
--- NOTE | 2017-03-26 17:36 | ECHO ---
Patient: MARYCHUY DELGADO [facility] Rec#: [id number] : 1955 Date: 03/26/2017 Age: 61y Height: 162.56 cm / 64.0 in Weight: 136.08 kg / 299.9 lbs Sex: F BSA: 2.32 Room#: [facility] Admit Date#: 03/26/2017 Type: Inpatient Referring: Julian Chase NP Reading: Parminder Nur MD Foil Wrapper: Raquel Rocha RDCS CC: Blake Stuart MD Transthoracic Echocardiogram Indication: CHF BP: 163/88 HR: 94 Rhythm: NSR Findings History: Pacer/AICD, A-fib, CHF, HTN. COPD, chronic renal failure, smoker, MO, FRANCIS on CPAP. Technical Comments: The study quality is fair. The study is technically limited due to patient body habitus. Completed at 1700. Left Ventricle: The left ventricular chamber size is normal. Moderate concentric left ventricular hypertrophy is observed. There is global hypokinesis of the left ventricle with minor regional variation. There is moderately decreased left ventricular systolic function. The estimated ejection fraction is 30-35%. There is abnormal ventricular septal wall motion consistent with right ventricular pacemaker. There is no consistent Doppler evidence of clinically significant diastolic dysfunction. Left Atrium: The left atrium is severely dilated. Right Ventricle: The right ventricle is mildly dilated. The right ventricular global systolic function is mildly reduced. A pacemaker wire is visualized in the right ventricle. Right Atrium: The right atrium is moderate to severely dilated. A pacemaker wire is visualized in the right atrium. Aortic Valve: The aortic valve is trileaflet. The aortic valve leaflets are mildly thickened. There is a trace of aortic regurgitation. There is no evidence of aortic stenosis. Mitral Valve: The mitral valve leaflets are mildly thickened. There is mild mitral regurgitation. There is no evidence of mitral stenosis. Tricuspid Valve: The tricuspid valve leaflets are normal. There is trace to mild tricuspid regurgitation. The right ventricular systolic pressure is estimated at 36 mmHg. There is evidence of mild pulmonary hypertension. There is no tricuspid stenosis. Pulmonic Valve: The pulmonic valve appears normal. There is mild pulmonic regurgitation. There is no pulmonic stenosis. Pericardium: There is no significant pericardial effusion. A pericardial fat pad is visualized. Aorta: There is no dilatation of the ascending aorta. There is no dilatation of the aortic arch. The aortic root is normal in size. Pulmonary Artery: The main pulmonary artery appears normal. Venous: The inferior vena cava appears normal in size. There is a greater than 50% respiratory change in the inferior vena cava dimension. Summary: There are changes noted when compared to the previous study done on 10/26/2014, PHTN is new. Mixed valvular disease is stable. Conclusions The study is technically limited due to patient body habitus. Completed at 1700. Moderate concentric left ventricular hypertrophy is observed. The estimated ejection fraction is 30-35%, globally . The endocardium is not well visualized. The left atrium is severely dilated. The right ventricle is mildly dilated. A pacemaker wire is visualized in the right ventricle. A pacemaker wire is visualized in the right atrium. There is a trace of aortic regurgitation. There is mild mitral regurgitation. There is trace to mild tricuspid regurgitation. There is evidence of mild pulmonary hypertension. There is mild pulmonic regurgitation. There are changes noted when compared to the previous study done on 10/26/2014, PHTN is new. Mixed valvular disease is stable. Measurements Name Value Normal Range RVIDd (AP) 2D 4.49 cm (0.9 - 2.6) RVDdMajor (2D) 4.8 cm (2.2 - 4.4) RAd ISD 4CH 6 cm (3.4 - 4.9) RA (A4C)W 4.5 cm (2.9 - 4.6) IVSd (2D) 1.3 cm (0.6 - 1) LVPWd (2D) 1.3 cm (0.6 - 1) LVIDd (2D) 5.4 cm (3.6 - 5.4) LVIDs (2D) 4.04 cm - LV FS (2D) 24 % (25 - 45) Aortic Annulus 2 cm (1.4 - 2.6) Ao root diameter (2D) 2.8 cm (2.1 - 3.5) Ascending Ao 3.4 cm (2.1 - 3.4) Aortic arch 2.6 cm (1.8 - 3.4) LA dimension (AP) 2D 5 cm (2.3 - 3.8) LAd ISD 4CH 7 cm (2.9 - 5.3) LA ISD 4CH W 6.4 cm (2.5 - 4.5) Name Value Normal Range LA ESV SP 4CH (A/L) 177 ml - LA ESV SP 2CH (A/L) 108 ml - LA ESV BP (A/L) 140 ml - LA ESV BP (A/L) index 60.19 ml/m2 - LA ESV SP 4CH (MOD) 160 ml - LA ESV SP 2CH (MOD) 104 ml - Name Value Normal Range MV E-wave Vmax 0.96 m/sec - MV deceleration time 202.5 msec - MV A-wave Vmax 0.7 m/sec - MV E:A ratio 1.4 ratio - LV septal e' Vmax 0.06 m/sec - LV lateral e' Vmax 0.08 m/sec - LV E:e' septal ratio 16 ratio - LV E:e' lateral ratio 12 ratio - Name Value Normal Range AV Vmax 1.8 m/sec - AV VTI 40.66 cm - AV peak gradient 13.4 mmHg - AV mean gradient 7.9 mmHg - LVOT Vmax 1.1 m/sec - LVOT VTI 21.25 cm - LVOT peak gradient 4.82 mmHg - LVOT mean gradient 2.09 mmHg - LAVELL Vmax 0.66 m/sec - Name Value Normal Range TR Vmax 2.3 m/sec - TR peak gradient 21 mmHg - RAP 15 mmHg - RVSP 36 mmHg - IVC diameter 3.5 cm - Name Value Normal Range PV Vmax 0.9 m/sec - PV peak gradient 3.31 mmHg - ID end-diastolic Vmax 1.75 m/sec -
--- NOTE | 2017-03-26 17:42 | HP ---
CC: Dr. Stuart * HISTORY AND PHYSICAL: DATE OF ADMISSION: 03/26/17 PRIMARY CARE PROVIDER: Dr. Stuart. ATTENDING PHYSICIAN WHILE IN THE HOSPITAL: Maximino Donohue MD * (report dictated by Julian Varma NP). CHIEF COMPLAINT: 1. Cough. 2. Shortness of breath. HISTORY OF PRESENT ILLNESS: Ms. Robledo is a 61-year-old female patient, she has a history of COPD, AFib, angina, CHF, and cardiomyopathy with EF of 20% to 25% about 2 years ago, essential hypertension, CKD, anxiety, lymphoma, obesity, FRANCIS, noncompliant with her CPAP, and history of hyperlipidemia. She comes into the ED today stating that over the last couple of weeks she has had progressive worsening shortness of breath. She started out having a cough that at first was a dry cough and it became productive with yellow sputum. She took some over -the-counter medication. She thought she was coming down with a cold. She was taking Mucinex. She is unsure if it is Mucinex DM or not and the sputum production went away; however, she still was coughing, having a dry cough and feeling short of breath. She went to her primary today, they evaluated her. They noted that she was hypoxic. She was significantly hypertensive. They were concerned and sent her to the ER. The patient does admits of having a weight gain over the last 2 weeks about 10 pounds. She does admits having orthopnea, said that she cannot lay flat. There have been no reports of fevers or chills. She does state that at time it does hurt to take a deep breath, because of all the coughing says her ribs hurt. She denied any abdominal pain or any nausea, or vomiting, and says that her ankle do look more swollen than her baseline. She says she has been taking her meds as prescribed. She also does admit that she has been eating food in the last several weeks that has been high in salt. She says that she was eating some ribs the other day that had been smoked and she actively admitted that she has not been following her low-sodium diet that she should be following. She came into the ER today, she was evaluated and it was noted that she was hypoxic. Chest x-ray was concerning for CHF. We were asked to evaluate for admission. PAST MEDICAL HISTORY: Significant for: 1. COPD. 2. AFib. 3. Angina. 4. History of CHF. 5. Cardiomyopathy with EF of 20% to 25%. 6. Hypertension. 7. CKD. 8. Anxiety. 9. Lymphoma.\E\ 10. History of morbid obesity. 11. FRANCIS, noncompliant with CPAP. 12. Hyperlipidemia. PAST SURGICAL HISTORY: 1. She has had a right foot surgery. 2. ICD/pacemaker placement. HOME MEDICATIONS: Include: 1. Tramadol 50 mg to 100 mg every 6 hours as needed. 2. Demadex 20 mg p.o. b.i.d. 3. Spiriva 1 capsule inhaled daily. 4. Aldactone 50 mg p.o. daily. 5. Potassium 40 mEq p.o. daily. 6. Nicotine patch 1 patch transdermally daily. 7. Multivitamin 1 tablet daily. 8. Dulera 2 puffs inhaled b.i.d. as needed. 9. Lisinopril 20 mg daily. 10. Colace 200 mg p.o. b.i.d. 11. Carvedilol 50 mg p.o. b.i.d. 12. Amiodarone 200 mg daily. 13. Albuterol 2.5 mg inhaled every 6 hours as needed while awake. 14. Xanax 0.5 mg p.o. t.i.d. as needed. 15. Trazodone 100 mg p.o. at bedtime. ALLERGIES TO MEDICATIONS: Include ASPIRIN. FAMILY HISTORY: She says her mother is alive and healthy, no medical problems that she can recall. Father noted to have a history of lung cancer. SOCIAL HISTORY: She used to smoke, says she does not smoke any more. She does not drink alcohol, so it is maybe once a week. Surrogate decision maker is her , Dieudonne. REVIEW OF SYSTEMS: There is no documented fever. She does admit to having a 10 -pound weight gain. There is no double vision. There was no ear discharge. She denied having any rhinorrhea. No sore throat, no thyroid enlargement. She denied having any chest pain. There is no orthopnea. There is no nocturnal dyspnea. There was no abdominal pain. No nausea, no vomiting. There was no dysuria, no frequency. No seizure. No loss of consciousness. No pruritus and no skin ulcerations. Review of 14 systems completed, all others negative. PHYSICAL EXAMINATION GENERAL: At this time, Ms. Robledo is a 61-year-old female patient, she is morbidly obese. She is sitting in the ER stretcher. She does not appear to be in any acute distress. VITAL SIGNS: Reveals blood pressure 163/88, pulse 95, respirations 18, O2 sat 93% on 2L, temperature 98.2. HEENT: Head is atraumatic and normocephalic. Eyes, EOMs are intact. Sclerae anicteric and not pale. Throat, oral mucosa appears to be moist. No oropharyngeal erythema. NECK: Supple. LUNGS: She did have wheezing in the upper lobes, crackles in the base, and equal diaphragmatic expansion. HEART: Sounds S1, S2. Regular rate and rhythm. No murmurs, rubs or gallops. ABDOMEN: Soft, flat, nontender. Bowel sounds are present. EXTREMITIES: Pulses are 2+ throughout. She does have trace edema to the lower extremity. She has 5/5 strength. NEUROLOGIC: The patient is awake, alert, and oriented x3. Tongue is midline. Business Unit Controller were equal. No gross focal deficits. SKIN: Intact. DIAGNOSTIC STUDIES/LAB DATA: Labs, WBC of 4.5, RBC at 4.79, hemoglobin 10.5, hematocrit of 40, platelet count of 230. INR 0.95. Sodium was 136, potassium of 3.8, chloride of 95, bicarb 35, BUN was 15, creatinine 1.35, which is near her baseline, glucose was 94, lactate 1.3, calcium 8.9. Total bili 0.6, AST 13 , ALT 14, alk phos 75. Troponin 0.01. BNP 363. Albumin of 3.9. Chest x-ray today obtained showed cardiomegaly with interstitial edema consistent with CHF, pacemaker leads are in place. She did have a EKG obtained today, which revealed sinus rhythm with a rate of 93 with a intraventricular conduction delay. She has had this previously on the previous EKGs. Last echo from 2 years ago, did show a EF of 20% to 25%. Old medical records reviewed. ASSESSMENT AND PLAN: Ms. Robledo is a 61-year-old female patient with multiple medical problems coming to the ER today with complaints of worsening shortness of breath, and weight gain on evaluation today in the ER. We asked to evaluate for admission. She will be admitted under inpatient status for: 1. Congestive heart failure exacerbation. I suspect that dietary indiscretion coupled with maybe a recent upper respiratory infection, which is now resolving , has led her to going into heart failure. She has had 10-pound weight gain. She does have an x-ray concerning for this. My plan is to go ahead and give her IV Lasix with echo, go ahead and we will check her weights daily and I will continue to follow this and diurese her. 2. Chronic obstructive pulmonary disease. She is wheezing, I am going to order p.r.n. albuterol for her. I am going to hold off on steroids as I think the wheezing is probably because of fluid. The x-ray supports that she does have a significant amount of fluid and pulmonary edema and we will continue her nebs and her Spiriva and her other medication as prescribed. 3. History of anxiety. We will continue meds as prescribed. 4. History of hypertension. Continue meds as prescribed. 5. Hyperlipidemia. Continue statin therapy. 6. Lymphoma. Follow with her primary. 7. History of chronic kidney disease. We will monitor her creatinine during diuresis. We will follow closely. 8. Obstructive sleep apnea. She is noncompliant with her CPAP. We will monitor her. 9. DVT prophylaxis. She will be placed on Eliquis. She says that is what she takes at home. 10. Fluids, electrolytes, and nutrition. She can have a heart healthy diet. 11. Code status. She is a full code. 12. History of angina. No active chest pain currently. We will continue her beta- regina and statin. She cannot take ASPIRIN because she is allergic. TIME SPENT: On the admission was 60 minutes, greater than half the time was spent [id number] with the patient obtaining my history and physical; the other half time was spent going over the plan of care with the patient and implementing plan of care. I did discuss the plan of care with my attending, Dr. Donohue; he is in agreement. JULIAN VARMA NP [id number]/CPS #: [id number] FLOYD
[2017-03-26] MEDS: traZODone TAB* 100 MG PO SCH (20:24)
[2017-03-26] MEDS: Docusate CAP* 100 MG PO SCH (20:24)
[2017-03-26] MEDS: Apixaban* 5 MG TAB PO SCH (20:24)
[2017-03-26] MEDS: Carvedilol TAB* 25 MG PO SCH (20:29)
[2017-03-26] MEDS: QUEtiapine TAB* 100 MG PO SCH (21:16)
[2017-03-27 06:05] LABS: EGFR African American 57.1 (>60); EGFR Non-African American 44.4 (>60); Potassium 3.5 mmol/L (3.5-5.0)
[2017-03-27 08:28] LABS: Hematocrit 39 % (35-47); Hemoglobin 12.4 g/dl (12.0-16.0); Mean Corpuscular HGB Conc 32 g/dl (31-36); Mean Corpuscular Hemoglobin 26 pg (27-31); Mean Corpuscular Volume 83 fL (80-97); Mean Platelet Volume 9 um3 (7.4-10.4); Red Blood Count 4.71 10^6/ul (4.0-5.4); Red Cell Distribution Width 23 % (10.5-15)
[2017-03-27 08:29] LABS: Add Diff/Slide Review? Manual Diff Added; Comments Flag Yes
[2017-03-27] MEDS: Atorvastatin* 20 MG TAB PO SCH (08:58)
[2017-03-27] MEDS: Furosemide IV* 10 MG/ML VIAL (40 MG) IV SLOW PU SCH (08:58)
[2017-03-27] MEDS: Docusate CAP* 100 MG PO SCH ×2 (08:59→20:38)
[2017-03-27] MEDS: Carvedilol TAB* 25 MG PO SCH ×2 (08:59→20:17)
[2017-03-27] MEDS: Potassium Chlor TAB* 20 MEQ TAB.ER PO SCH (08:59)
[2017-03-27] MEDS: Amiodarone TAB* 200 MG PO SCH (08:59)
[2017-03-27] MEDS ORDERED: Influenza VAC *QUAD* 2017-18* 0.5 ML SYRINGE IM ONE (09:00)
[2017-03-27] MEDS: Spironolactone TAB* 25 MG PO SCH ×3 (09:00→12:38)
[2017-03-27] MEDS ORDERED: Lisinopril TAB* 10 MG PO SCH (09:00)
[2017-03-27] MEDS ORDERED: Spiriva Inhaler DEVICE* 1 EACH DEVICE ONE (09:00)
[2017-03-27 09:03] LABS: Immature Granulocytes 2 % (0-9); Neutrophil % 81 % (38-83); Polychromasia 1+
[2017-03-27 09:04] LABS: Target Cells 2+; Tear Drop Cells 1+
[2017-03-27] MEDS: Apixaban* 5 MG TAB PO SCH ×2 (09:04→20:59)
[2017-03-27 09:06] LABS: Hypochromasia 1+
[2017-03-27] MEDS ORDERED: Potassium Chlor TAB* 20 MEQ TAB.ER PO ONE (09:30)
[2017-03-27 09:51] LABS: Magnesium 1.9 mg/dL (1.9-2.7)
[2017-03-27] MEDS: ALPRAZolam TAB* 0.5 MG PO PRN ×2 (09:52→18:33)
[2017-03-27] MEDS: traMADol TAB* 50 MG PO PRN ×2 (09:52→18:34)
[2017-03-27] MEDS: Tiotropium CAP.INH* CAP.INH/18 MCG (USE ORDER SET !) INH SCH (11:15)
--- NOTE | 2017-03-27 14:20 | PN ---
Subjective Date of Service: 03/27/17 Interval History: Pt reports both dietary noncompliance since December 15 and medication non- compliance. Prescribed torsemide 20mg BID actually only taking 10mg daily for last ~4weeks. Gained 20lb in that time. Reports not urinating that much so far with the IV lasix. NSVT 11 beats, asymptomatic this AM. Objective Active Medications: Acetaminophen (Tylenol Tab*) 650 mg PO Q4H PRN PRN Reason: FEVER/PAIN Albuterol (Ventolin 2.5 Mg/3 Ml Neb.Lois*) 2.5 mg INH [id number] AWAKE PRN PRN Reason: WHEEZING Alprazolam (Xanax Tab*) 0.5 mg PO TID PRN PRN Reason: ANXIETY Last Admin: 03/27/17 09:52 Dose: 0.5 mg Amiodarone HCl (Cordarone Tab*) 200 mg PO DAILY [facility] Last Admin: 03/27/17 08:59 Dose: 200 mg Apixaban (Eliquis*) 5 mg PO BID [facility] Last Admin: 03/27/17 09:04 Dose: 5 mg Atorvastatin Calcium (Lipitor*) 20 mg PO DAILY [facility] Last Admin: 03/27/17 08:58 Dose: 20 mg Carvedilol (Coreg Tab*) 25 mg PO BID [facility] Docusate Sodium (Colace Cap*) 200 mg PO BID [facility] Last Admin: 03/27/17 08:59 Dose: 200 mg Lisinopril (Prinivil Tab*) 20 mg PO DAILY [facility] Last Admin: 03/27/17 08:58 Dose: 20 mg Mometasone Furoate/Formoterol Fumar (Dulera 200/5 Mdi*) 2 puff INH BID PRN PRN Reason: SHORTNESS OF BREATH Potassium Chloride (Klor Con Er Tab*) 40 meq PO DAILY [facility] Last Admin: 03/27/17 08:59 Dose: 40 meq Quetiapine Fumarate (Seroquel Tab*) 400 mg PO BEDTIME [facility] Last Admin: 03/26/17 21:16 Dose: 400 mg Spironolactone (Aldactone Tab*) 50 mg PO DAILY@1100 [facility] Last Admin: 03/27/17 12:38 Dose: 50 mg Tiotropium [place] (Spiriva Cap.Inh*) 1 cap INH DAILY [facility] Last Admin: 03/27/17 11:15 Dose: 1 cap Torsemide (Demadex*) 40 mg PO BID [facility] Tramadol HCl (Ultram*) 50 mg PO Q6HR PRN PRN Reason: PAIN Last Admin: 03/27/17 09:52 Dose: 50 mg Trazodone HCl (Desyrel Tab*) 100 mg PO BEDTIME [facility] Last Admin: 03/26/17 20:24 Dose: 100 mg Vital Signs 03/26/17 03/26/17 03/26/17 15:00 16:00 16:02 Temperature 98.1 F Pulse Rate 93 Respiratory 20 20 Rate Blood Pressure 141/74 175/99 (mmHg) O2 Sat by Pulse 94 Oximetry 03/26/17 03/26/17 03/26/17 18:00 20:00 20:20 Temperature 98.1 F Pulse Rate 88 Respiratory 16 18 18 Rate Blood Pressure 109/68 (mmHg) O2 Sat by Pulse 93 Oximetry 03/26/17 03/27/17 03/27/17 23:37 01:30 03:50 Temperature 97.7 F 97.8 F Pulse Rate 95 91 Respiratory 16 16 Rate Blood Pressure 118/73 118/47 (mmHg) O2 Sat by Pulse 92 92 92 Oximetry 03/27/17 03/27/17 03/27/17 04:08 04:09 07:26 Temperature 97.9 F 97.8 F Pulse Rate 64 88 Respiratory 18 26 Rate Blood Pressure 104/53 110/66 111/56 (mmHg) O2 Sat by Pulse 2 Oximetry 03/27/17 03/27/17 03/27/17 09:22 09:52 11:23 Temperature 97.7 F Pulse Rate 73 Respiratory 22 18 20 Rate Blood Pressure 126/68 (mmHg) O2 Sat by Pulse 91 Oximetry 03/27/17 03/27/17 11:52 13:44 Temperature Pulse Rate Respiratory 20 20 Rate Blood Pressure (mmHg) O2 Sat by Pulse Oximetry Oxygen Devices in Use Now: Nasal Cannula Appearance: NAD, lying in bed. Ears/Nose/Mouth/Throat: NL Teeth, Lips, Gums, Mucous Membranes Moist Neck: NL Appearance and Movements; NL JVP, Trachea Midline Respiratory: Symmetrical Chest Expansion and Respiratory Effort, Clear to Auscultation Cardiovascular: - - normal s1 s2 no murmurs, rubs or gallops, JVD difficult to ascertain given body habitus Abdominal: NL Sounds; No Tenderness; No Distention, No Hepatosplenomegaly, - - morbidly obese Extremities: No Clubbing, Cyanosis, - - trace edema. Skin: No Rash or Ulcers, No Nodules or Sclerosis Neurological: Alert and Oriented x 3 Nutrition: Taking PO's Result Diagrams: 03/27/17 07:12 03/27/17 05:20 Additional Lab and Data: Laboratory Results - last 24 hr 03/27/17 03/27/17 03/27/17 02:31 05:20 07:12 WBC 3.0 L RBC 4.71 Hgb 12.4 Hct 39 MCV 83 MCH 26 L MCHC 32 RDW 23 H Plt Count 177 MPV 9 Immature Gran % (Auto) 2 Neutrophils % 81 Band Neutrophils % 2 Lymphocytes % 12 L Monocytes % 5 Nucleated RBCs/100 WBC 5 H Normal RBC Morphology Not Reportable Polychromasia 1+ Hypochromasia 1+ Target Cells 2+ Tear Drop Cells 1+ Elliptocytes 1+ Sodium 137 Potassium 3.5 Chloride 97 L Carbon Dioxide 35 H Anion Gap 5 BUN 16 Creatinine 1.23 H Est GFR ( Amer) 57.1 Est GFR (Non-Af Amer) 44.4 BUN/Creatinine Ratio 13.0 Glucose 128 H Calcium 8.0 L Magnesium 1.9 Influenza A (Rapid) Negative Influenza B (Rapid) Negative Microbiology and Other Data: Microbiology 03/26/17 13:20 Aerobic Blood Culture - Preliminary Blood Venous No Growth Day 1 Anaerobic Blood Culture - Preliminary No Growth Day 1 03/26/17 12:50 Aerobic Blood Culture - Preliminary Blood Venous No Growth Day 1 Anaerobic Blood Culture - Preliminary No Growth Day 1 03/26/17 21:54 Influenza Types A,B Antigen (JOAO) - Final Nasopharyngeal Specimen received for Influenza A/B Molecular testing Assess/Plan/Problems-Billing Assessment: 61 year old female H systolic CHF (improved from 20-> 30-35% here), pAfib( Eliquis), FRANCIS, Morbid Obesity(BMI 57) p/w with SOB, weight gain likely acute on chronic systolic CHF exacerbation 2/2 4 weeks of medication noncompliance and 3 months of dietary noncompliance. - Patient Problems (1) Acute systolic CHF (congestive heart failure) Current Visit: No Status: Acute Priority: High Onset Date: 10/25/14 Code (s): I50.21 - ACUTE SYSTOLIC (CONGESTIVE) HEART FAILURE SNOMED Code(s): 307415082 Comment: - Acute exacerbation 2/2 medication & dietary non-compliance - 330 lbs, ~20lb increase in month. Does not know dry weight. Daily weights, strict i/os - s/p lasix 80IV in ED then 40mg IV BID. not sufficiently negative. Switch back to torsemide (home is 20mg BID but actually taking 10mg daily. Trial 40mg BID BB, ACEI, spironolactone as BP tolerates. decreased coreg to 25mg BID (2) CKD (chronic kidney disease), stage III Current Visit: No Status: Acute Priority: High Code(s): N18.3 - CHRONIC KIDNEY DISEASE, STAGE 3 (MODERATE) SNOMED Code(s): 818646894 Comment: [employer] 1.2 from 1.3. Baseline ~1.0-1.2. Stable. GFR 57 (3) Cough Current Visit: No Status: Acute Priority: High Onset Date: 09/08/15 Code (s): R05 - COUGH SNOMED Code(s): 36258307 Comment: likely 2/2 acute CHF (4) Acute respiratory failure Current Visit: Yes Status: Acute Code(s): J96.00 - ACUTE RESPIRATORY FAILURE , UNSP W HYPOXIA OR HYPERCAPNIA SNOMED Code(s): 72951536 Comment: Sat 77% on RA in ED. Now 5->3L. further wean as tolerated. 2/2 CHF exac (5) Non-sustained ventricular tachycardia Current Visit: No Status: Acute Priority: High Code(s): I47.2 - VENTRICULAR TACHYCARDIA SNOMED Code(s): 329605285 Comment: continue telemetry and lyte repletion during diuresis. EF improved. PPM continue home amio 200mg daily (6) Hypertension Current Visit: No Status: Chronic Priority: High Onset Date: 01/29/14 Code(s): I10 - ESSENTIAL (PRIMARY) HYPERTENSION SNOMED Code(s): 53568682 Comment: coreg, torsemide, lisinopril, spironolactone. (7) FRANCIS (obstructive sleep apnea) Current Visit: No Status: Chronic Priority: Medium Code(s): G47.33 - OBSTRUCTIVE SLEEP APNEA (ADULT) (PEDIATRIC) SNOMED Code(s): 45073117 Comment: FRANCIS (continue bipap at night). ?sleep study since September? Status and Disposition: medicine inpatient for AoC CHF exaccerbation. Diuresing. Attending: Wagner Lewis
[2017-03-27] MEDS ORDERED: Torsemide TAB* 20 MG PO SCH ×2 (18:00)
[2017-03-27] MEDS ORDERED: oxyCODONE/Acetamin 5/325 MG* TAB PO ONE (20:33)
[2017-03-27] MEDS: QUEtiapine TAB* 100 MG PO SCH (20:38)
[2017-03-27] MEDS: traZODone TAB* 100 MG PO SCH (20:39)
[2017-03-28] MEDS: traMADol TAB* 50 MG PO PRN ×2 (03:53→22:00)
[2017-03-28] MEDS: ALPRAZolam TAB* 0.5 MG PO PRN ×3 (05:25→22:00)
[2017-03-28 07:59] LABS: BUN/Creatinine Ratio 16.2 (8-20); Calcium 7.8 mg/dL (8.6-10.3); EGFR African American 53.6 (>60); EGFR Non-African American 41.6 (>60); Magnesium 1.6 mg/dL (1.9-2.7)
[2017-03-28] MEDS: Tiotropium CAP.INH* CAP.INH/18 MCG (USE ORDER SET !) INH SCH (08:57)
[2017-03-28] MEDS: Albuterol 2.5 MG/3 ML NEB.SOL* (0.083%) INH PRN ×2 (09:08→17:58)
[2017-03-28] MEDS: Apixaban* 5 MG TAB PO SCH ×2 (10:12→22:00)
[2017-03-28] MEDS: Docusate CAP* 100 MG PO SCH ×2 (10:13→21:50)
[2017-03-28] MEDS: Amiodarone TAB* 200 MG PO SCH (10:13)
[2017-03-28] MEDS: Potassium Chlor TAB* 20 MEQ TAB.ER PO SCH (10:13)
[2017-03-28] MEDS: Atorvastatin* 20 MG TAB PO SCH (10:13)
[2017-03-28] MEDS: Carvedilol TAB* 25 MG PO SCH (10:14)
[2017-03-28] MEDS: Torsemide TAB* 20 MG PO SCH ×2 (10:14→21:50)
[2017-03-28] MEDS: Spironolactone TAB* 25 MG PO SCH (13:10)
[2017-03-28] MEDS: Lisinopril TAB* 10 MG PO SCH (13:40)
--- NOTE | 2017-03-28 15:51 | PN ---
Subjective Date of Service: 03/28/17 Interval History: Breathing slightly better. Still 3L NC. 2L negative over last 24. Objective Active Medications: Acetaminophen (Tylenol Tab*) 650 mg PO Q4H PRN PRN Reason: FEVER/PAIN Last Admin: 03/27/17 14:39 Dose: 650 mg Albuterol (Ventolin 2.5 Mg/3 Ml Neb.Lois*) 2.5 mg INH [id number] AWAKE PRN PRN Reason: WHEEZING Last Admin: 03/28/17 09:08 Dose: 2.5 mg Alprazolam (Xanax Tab*) 0.5 mg PO TID PRN PRN Reason: ANXIETY Last Admin: 03/28/17 13:40 Dose: 0.5 mg Amiodarone HCl (Cordarone Tab*) 200 mg PO DAILY [facility] Last Admin: 03/28/17 10:13 Dose: 200 mg Apixaban (Eliquis*) 5 mg PO BID [facility] Last Admin: 03/28/17 10:12 Dose: 5 mg Atorvastatin Calcium (Lipitor*) 20 mg PO DAILY [facility] Last Admin: 03/28/17 10:13 Dose: 20 mg Carvedilol (Coreg Tab*) 25 mg PO BID [facility] Last Admin: 03/28/17 10:14 Dose: 25 mg Docusate Sodium (Colace Cap*) 200 mg PO BID [facility] Last Admin: 03/28/17 10:13 Dose: 200 mg Lisinopril (Prinivil Tab*) 10 mg PO DAILY [facility] Last Admin: 03/28/17 13:40 Dose: 10 mg Mometasone Furoate/Formoterol Fumar (Dulera 200/5 Mdi*) 2 puff INH BID PRN PRN Reason: SHORTNESS OF BREATH Potassium Chloride (Klor Con Er Tab*) 40 meq PO DAILY [facility] Last Admin: 03/28/17 10:13 Dose: 40 meq Quetiapine Fumarate (Seroquel Tab*) 400 mg PO BEDTIME [facility] Last Admin: 03/27/17 20:38 Dose: 400 mg Spironolactone (Aldactone Tab*) 50 mg PO DAILY@1100 [facility] Last Admin: 03/28/17 13:10 Dose: 50 mg Tiotropium [place] (Spiriva Cap.Inh*) 1 cap INH DAILY [facility] Last Admin: 03/28/17 08:57 Dose: 1 cap Torsemide (Demadex*) 40 mg PO BID [facility] Last Admin: 03/28/17 10:14 Dose: 40 mg Tramadol HCl (Ultram*) 50 mg PO Q6HR PRN PRN Reason: PAIN Last Admin: 03/28/17 03:53 Dose: 50 mg Trazodone HCl (Desyrel Tab*) 100 mg PO BEDTIME [facility] Last Admin: 03/27/17 20:39 Dose: 100 mg Vital Signs 03/27/17 03/27/17 03/27/17 18:33 18:34 19:23 Temperature 97.5 F Pulse Rate 74 Respiratory 20 20 16 Rate Blood Pressure 103/64 (mmHg) O2 Sat by Pulse 95 Oximetry 03/27/17 03/27/17 03/27/17 20:00 20:26 20:27 Temperature Pulse Rate Respiratory 18 20 20 Rate Blood Pressure (mmHg) O2 Sat by Pulse Oximetry 03/27/17 03/27/17 03/27/17 20:59 22:59 23:50 Temperature 97.1 F Pulse Rate 70 Respiratory 20 18 16 Rate Blood Pressure 93/60 (mmHg) O2 Sat by Pulse 92 Oximetry 03/28/17 03/28/17 03/28/17 03:32 03:53 04:01 Temperature 97.5 F Pulse Rate 71 Respiratory 20 18 Rate Blood Pressure 96/70 (mmHg) O2 Sat by Pulse 91 94 Oximetry 03/28/17 03/28/17 03/28/17 05:25 07:00 07:17 Temperature 97.8 F Pulse Rate 74 Respiratory 20 20 16 Rate Blood Pressure 101/60 (mmHg) O2 Sat by Pulse 91 Oximetry 03/28/17 03/28/17 03/28/17 07:25 08:00 09:08 Temperature Pulse Rate 89 Respiratory 20 20 18 Rate Blood Pressure (mmHg) O2 Sat by Pulse 94 Oximetry 03/28/17 03/28/17 11:43 13:40 Temperature 97.8 F Pulse Rate 64 Respiratory 20 20 Rate Blood Pressure 105/80 (mmHg) O2 Sat by Pulse 87 Oximetry Oxygen Devices in Use Now: Nasal Cannula Appearance: sitting at edge of bed. NAD Eyes: No Scleral Icterus Ears/Nose/Mouth/Throat: NL Teeth, Lips, Gums, Mucous Membranes Moist Neck: NL Appearance and Movements; NL JVP Respiratory: Symmetrical Chest Expansion and Respiratory Effort, Clear to Auscultation Cardiovascular: NL Sounds; No Murmurs; No JVD, RRR Abdominal: NL Sounds; No Tenderness; No Distention, No Hepatosplenomegaly, - - obese Extremities: - - traced edema Skin: No Rash or Ulcers Neurological: Alert and Oriented x 3 Result Diagrams: 03/27/17 07:12 03/28/17 07:20 Additional Lab and Data: Laboratory Results - last 24 hr 03/28/17 07:20 Sodium 139 Potassium 4.0 Chloride 97 L Carbon Dioxide 40 H Anion Gap 2 BUN 21 Creatinine 1.30 H Est GFR ( Amer) 53.6 Est GFR (Non-Af Amer) 41.6 BUN/Creatinine Ratio 16.2 Glucose 93 Calcium 7.8 L Magnesium 1.6 L Microbiology and Other Data: Microbiology 03/26/17 13:20 Aerobic Blood Culture - Preliminary Blood Venous No Growth Day 2 Anaerobic Blood Culture - Preliminary No Growth Day 2 Blood Culture - Final 03/26/17 12:50 Aerobic Blood Culture - Preliminary Blood Venous No Growth Day 2 Anaerobic Blood Culture - Preliminary No Growth Day 2 Blood Culture - Final Assess/Plan/Problems-Billing Assessment: 61 year old female H systolic CHF (improved from 20-> 30-35% here), pAfib( Eliquis), FRANCIS, Morbid Obesity(BMI 57) p/w with SOB, weight gain likely acute on chronic systolic CHF exacerbation 2/2 4 weeks of medication noncompliance and 3 months of dietary noncompliance. - Patient Problems (1) Acute systolic CHF (congestive heart failure) Current Visit: No Status: Acute Priority: High Onset Date: 10/25/14 Code (s): I50.21 - ACUTE SYSTOLIC (CONGESTIVE) HEART FAILURE SNOMED Code(s): 979193568 Comment: - Acute exacerbation 2/2 medication & dietary non-compliance - 330 lbs, ~20lb increase in month. Does not know dry weight. Daily weights, strict i/os - s/p lasix 80IV in ED then 40mg IV BID. not sufficiently negative. Switch back to torsemide (home is 20mg BID but actually taking 10mg daily. Trial 40mg BID BB, ACEI, spironolactone as BP tolerates. decreased coreg to 25mg BID (2) CKD (chronic kidney disease), stage III Current Visit: No Status: Acute Priority: High Code(s): N18.3 - CHRONIC KIDNEY DISEASE, STAGE 3 (MODERATE) SNOMED Code(s): 660332349 Comment: RN TRANSFER 1.3. Baseline ~1.0-1.2. Stable. (3) Cough Current Visit: No Status: Acute Priority: High Onset Date: 09/08/15 Code (s): R05 - COUGH SNOMED Code(s): 21283739 Comment: likely 2/2 acute CHF (4) Acute respiratory failure Current Visit: Yes Status: Acute Code(s): J96.00 - ACUTE RESPIRATORY FAILURE , UNSP W HYPOXIA OR HYPERCAPNIA SNOMED Code(s): 09347962 Comment: Sat 77% on RA in ED. Now 5->3L. further wean as tolerated. 2/2 CHF exac (5) Non-sustained ventricular tachycardia Current Visit: No Status: Acute Priority: High Code(s): I47.2 - VENTRICULAR TACHYCARDIA SNOMED Code(s): 313713958 Comment: continue telemetry and lyte repletion during diuresis. EF improved. PPM continue home amio 200mg daily (6) Hypertension Current Visit: No Status: Chronic Priority: High Onset Date: 01/29/14 Code(s): I10 - ESSENTIAL (PRIMARY) HYPERTENSION SNOMED Code(s): 77893050 Comment: coreg, torsemide, lisinopril, spironolactone. (7) FRANCIS (obstructive sleep apnea) Current Visit: No Status: Chronic Priority: Medium Code(s): G47.33 - OBSTRUCTIVE SLEEP APNEA (ADULT) (PEDIATRIC) SNOMED Code(s): 90043863 Comment: FRANCIS (continue bipap at night). ?sleep study since September? Status and Disposition: medicine inpatient for [facility] CHF exaccerbation. Diuresing. Attending: Wagner Lewis
[2017-03-28] MEDS: QUEtiapine TAB* 100 MG PO SCH (21:51)
[2017-03-28] MEDS: traZODone TAB* 100 MG PO SCH (21:51)
[2017-03-29] MEDS: Carvedilol TAB* 25 MG PO SCH ×3 (01:08→21:16)
[2017-03-29 07:29] LABS: BUN/Creatinine Ratio 19.7 (8-20); Calcium 8.5 mg/dL (8.6-10.3); EGFR Non-African American 42.8 (>60); Magnesium 1.9 mg/dL (1.9-2.7); Potassium 3.8 mmol/L (3.5-5.0)
[2017-03-29] MEDS: Tiotropium CAP.INH* CAP.INH/18 MCG (USE ORDER SET !) INH SCH (07:57)
[2017-03-29] MEDS: Torsemide TAB* 20 MG PO SCH ×2 (08:53→21:17)
[2017-03-29] MEDS: Apixaban* 5 MG TAB PO SCH ×2 (08:53→21:17)
[2017-03-29] MEDS: Potassium Chlor TAB* 20 MEQ TAB.ER PO SCH (08:53)
[2017-03-29] MEDS: ALPRAZolam TAB* 0.5 MG PO PRN ×2 (08:53→16:05)
[2017-03-29] MEDS: Docusate CAP* 100 MG PO SCH ×2 (08:53→21:16)
[2017-03-29] MEDS: Atorvastatin* 20 MG TAB PO SCH (08:54)
[2017-03-29] MEDS: Lisinopril TAB* 10 MG PO SCH (08:54)
[2017-03-29] MEDS: Amiodarone TAB* 200 MG PO SCH (08:54)
[2017-03-29] MEDS: traMADol TAB* 50 MG PO PRN ×2 (08:54→16:06)
[2017-03-29] MEDS: Spironolactone TAB* 25 MG PO SCH (11:00)
--- NOTE | 2017-03-29 16:09 | PN ---
Subjective Date of Service: 03/29/17 Interval History: Continued progress with diuresis, net negative 1.8L and dropped to 148.3kg from 151.1 from 150.5 on admission. fluid restriction was started yesterday. Unable to wean from 3L yesterday but pt feels SOB somewhat better today. Objective Active Medications: Acetaminophen (Tylenol Tab*) 650 mg PO Q4H PRN PRN Reason: FEVER/PAIN Last Admin: 03/27/17 14:39 Dose: 650 mg Albuterol (Ventolin 2.5 Mg/3 Ml Neb.Lois*) 2.5 mg INH [id number] AWAKE PRN PRN Reason: WHEEZING Last Admin: 03/28/17 17:58 Dose: 2.5 mg Alprazolam (Xanax Tab*) 0.5 mg PO TID PRN PRN Reason: ANXIETY Last Admin: 03/29/17 08:53 Dose: 0.5 mg Amiodarone HCl (Cordarone Tab*) 200 mg PO DAILY [facility] Last Admin: 03/29/17 08:54 Dose: 200 mg Apixaban (Eliquis*) 5 mg PO BID [facility] Last Admin: 03/29/17 08:53 Dose: 5 mg Atorvastatin Calcium (Lipitor*) 20 mg PO DAILY [facility] Last Admin: 03/29/17 08:54 Dose: 20 mg Carvedilol (Coreg Tab*) 25 mg PO BID [facility] Last Admin: 03/29/17 08:54 Dose: 25 mg Docusate Sodium (Colace Cap*) 200 mg PO BID [facility] Last Admin: 03/29/17 08:53 Dose: 200 mg Lisinopril (Prinivil Tab*) 10 mg PO DAILY [facility] Last Admin: 03/29/17 08:54 Dose: 10 mg Mometasone Furoate/Formoterol Fumar (Dulera 200/5 Mdi*) 2 puff INH BID PRN PRN Reason: SHORTNESS OF BREATH Potassium Chloride (Klor Con Er Tab*) 40 meq PO DAILY [facility] Last Admin: 03/29/17 08:53 Dose: 40 meq Quetiapine Fumarate (Seroquel Tab*) 400 mg PO BEDTIME [facility] Last Admin: 03/28/17 21:51 Dose: 400 mg Spironolactone (Aldactone Tab*) 50 mg PO DAILY@1100 [facility] Last Admin: 03/29/17 11:00 Dose: 50 mg Tiotropium [place] (Spiriva Cap.Inh*) 1 cap INH DAILY [facility] Last Admin: 03/29/17 07:57 Dose: 1 cap Torsemide (Demadex*) 40 mg PO BID [facility] Last Admin: 03/29/17 08:53 Dose: 40 mg Tramadol HCl (Ultram*) 50 mg PO Q6HR PRN PRN Reason: PAIN Last Admin: 03/29/17 08:54 Dose: 50 mg Trazodone HCl (Desyrel Tab*) 100 mg PO BEDTIME [facility] Last Admin: 03/28/17 21:51 Dose: 100 mg Vital Signs 03/28/17 03/28/17 03/28/17 18:01 19:20 20:00 Temperature 97.7 F Pulse Rate 72 66 Respiratory 20 22 20 Rate Blood Pressure (mmHg) O2 Sat by Pulse 92 97 Oximetry 03/28/17 03/28/17 03/28/17 21:50 22:00 22:49 Temperature 98.1 F Pulse Rate 67 Respiratory 24 24 Rate Blood Pressure 104/60 (mmHg) O2 Sat by Pulse 89 92 Oximetry 03/28/17 03/29/17 03/29/17 23:42 00:00 03:45 Temperature 98.5 F 97.8 F Pulse Rate 72 76 Respiratory 16 20 16 Rate Blood Pressure 100/55 108/55 (mmHg) O2 Sat by Pulse 90 97 Oximetry 03/29/17 03/29/17 03/29/17 07:33 08:00 08:53 Temperature 98.2 F Pulse Rate 73 Respiratory 16 16 16 Rate Blood Pressure 113/65 (mmHg) O2 Sat by Pulse 94 97 Oximetry 03/29/17 03/29/17 03/29/17 08:54 10:53 10:54 Temperature Pulse Rate Respiratory 16 16 16 Rate Blood Pressure (mmHg) O2 Sat by Pulse Oximetry 03/29/17 12:23 Temperature 98.6 F Pulse Rate 62 Respiratory 16 Rate Blood Pressure 121/79 (mmHg) O2 Sat by Pulse 93 Oximetry Oxygen Devices in Use Now: Nasal Cannula Appearance: NAD, initially asleep, easily arousable. Eyes: No Scleral Icterus, PERRLA Ears/Nose/Mouth/Throat: NL Teeth, Lips, Gums, Mucous Membranes Moist Respiratory: Symmetrical Chest Expansion and Respiratory Effort, Clear to Auscultation Cardiovascular: RRR, - - normal s1, s2, no murmurs. JVD unable to appreciate 2/ 2 body habitus Abdominal: NL Sounds; No Tenderness; No Distention, No Hepatosplenomegaly, - - morbidly obese Extremities: - - no pitting edema Skin: No Rash or Ulcers, No Nodules or Sclerosis Neurological: Alert and Oriented x 3 Result Diagrams: 03/27/17 07:12 03/29/17 06:28 Additional Lab and Data: Laboratory Results - last 24 hr 03/29/17 06:28 Sodium 140 Potassium 3.8 Chloride 96 L Carbon Dioxide 39 H Anion Gap 5 BUN 25 H Creatinine 1.27 H Est GFR ( Amer) 55.0 Est GFR (Non-Af Amer) 42.8 BUN/Creatinine Ratio 19.7 Glucose 85 Calcium 8.5 L Magnesium 1.9 Microbiology and Other Data: Microbiology 03/26/17 13:20 Blood Venous Aerobic Blood Culture - Preliminary No Growth Day 3 03/26/17 13:20 Blood Venous Anaerobic Blood Culture - Preliminary No Growth Day 3 03/26/17 13:20 Blood Venous Blood Culture - Final 03/26/17 12:50 Blood Venous Aerobic Blood Culture - Preliminary No Growth Day 3 03/26/17 12:50 Blood Venous Anaerobic Blood Culture - Preliminary No Growth Day 3 03/26/17 12:50 Blood Venous Blood Culture - Final 03/26/17 21:54 Nasopharyngeal Influenza Types A,B Antigen (JOAO) - Final Specimen received for Influenza A/B Molecular testing Assess/Plan/Problems-Billing Assessment: 61 year old female H systolic CHF (improved from 20-> 30-35% here), pAfib( Eliquis), FRANCIS, Morbid Obesity(BMI 57) p/w with SOB, weight gain likely acute on chronic systolic CHF exacerbation 2/2 4 weeks of medication noncompliance and 3 months of dietary noncompliance. Diuresing well - Patient Problems (1) Acute systolic CHF (congestive heart failure) Current Visit: No Status: Acute Priority: High Onset Date: 10/25/14 Code (s): I50.21 - ACUTE SYSTOLIC (CONGESTIVE) HEART FAILURE SNOMED Code(s): 079967578 Comment: - Acute exacerbation 2/2 medication & dietary non-compliance - 330 lbs, ~20lb increase in month. Does not know dry weight. Daily weights, strict i/os - s/p lasix 80IV in ED then 40mg IV BID. not sufficiently negative. Switch back to torsemide (home is 20mg BID but actually taking 10mg daily. Doing well on 40mg BID BB, ACEI, spironolactone as BP tolerates. continue reduced coreg at 25mg BID ( home was 50mg BID) (2) CKD (chronic kidney disease), stage III Current Visit: No Status: Acute Priority: High Code(s): N18.3 - CHRONIC KIDNEY DISEASE, STAGE 3 (MODERATE) SNOMED Code(s): 373847480 Comment: [employer] 1.3. Baseline ~1.0-1.2. Stable. (3) Cough Current Visit: No Status: Acute Priority: High Onset Date: 09/08/15 Code (s): R05 - COUGH SNOMED Code(s): 03032694 Comment: improved. likely 2/2 acute CHF (4) Acute respiratory failure Current Visit: Yes Status: Acute Code(s): J96.00 - ACUTE RESPIRATORY FAILURE , UNSP W HYPOXIA OR HYPERCAPNIA SNOMED Code(s): 52518849 Comment: Sat 77% on RA in ED. Now 5->3L. further wean as tolerated. 2/2 CHF exac (5) Non-sustained ventricular tachycardia Current Visit: No Status: Acute Priority: High Code(s): I47.2 - VENTRICULAR TACHYCARDIA SNOMED Code(s): 097246398 Comment: continue telemetry and lyte repletion during diuresis. EF improved. PPM continue home amio 200mg daily (6) Hypertension Current Visit: No Status: Chronic Priority: High Onset Date: 01/29/14 Code(s): I10 - ESSENTIAL (PRIMARY) HYPERTENSION SNOMED Code(s): 53886351 Comment: coreg, torsemide, lisinopril, spironolactone. (7) FRANCIS (obstructive sleep apnea) Current Visit: No Status: Chronic Priority: Medium Code(s): G47.33 - OBSTRUCTIVE SLEEP APNEA (ADULT) (PEDIATRIC) SNOMED Code(s): 69719718 Comment: FRANCIS (continue bipap at night). ?sleep study since September? Status and Disposition: medicine inpatient for AoC CHF exaccerbation. Diuresing well, hopeful for 03/31 Attending: Wagner Lewis
[2017-03-29] MEDS: traZODone TAB* 100 MG PO SCH (21:17)
[2017-03-29] MEDS: QUEtiapine TAB* 100 MG PO SCH (21:17)
[2017-03-30] MEDS: ALPRAZolam TAB* 0.5 MG PO PRN ×3 (00:18→16:18)
[2017-03-30] MEDS: traMADol TAB* 50 MG PO PRN ×3 (00:19→16:18)
[2017-03-30 06:46] LABS: BUN/Creatinine Ratio 30.7 (8-20); EGFR Non-African American 42.8 (>60); Potassium 3.6 mmol/L (3.5-5.0)
[2017-03-30] MEDS: Atorvastatin* 20 MG TAB PO SCH (08:10)
[2017-03-30] MEDS: Potassium Chlor TAB* 20 MEQ TAB.ER PO SCH (08:10)
[2017-03-30] MEDS: Docusate CAP* 100 MG PO SCH ×2 (08:11→20:38)
[2017-03-30] MEDS: Lisinopril TAB* 10 MG PO SCH (08:11)
[2017-03-30] MEDS: Carvedilol TAB* 25 MG PO SCH ×2 (08:11→20:38)
[2017-03-30] MEDS: Torsemide TAB* 20 MG PO SCH ×2 (08:11→20:38)
[2017-03-30] MEDS: Apixaban* 5 MG TAB PO SCH ×2 (08:12→20:38)
[2017-03-30] MEDS: Amiodarone TAB* 200 MG PO SCH (08:12)
[2017-03-30] MEDS: Tiotropium CAP.INH* CAP.INH/18 MCG (USE ORDER SET !) INH SCH (08:30)
[2017-03-30] MEDS: Spironolactone TAB* 25 MG PO SCH (11:07)
--- NOTE | 2017-03-30 13:41 | PN ---
Subjective Date of Service: 03/30/17 Interval History: Feeling better. was off oxygen walking to bathroom. Another 2.9L net negative. Weight down to 146.1 (high was 151.1) Objective Active Medications: Acetaminophen (Tylenol Tab*) 650 mg PO Q4H PRN PRN Reason: FEVER/PAIN Last Admin: 03/27/17 14:39 Dose: 650 mg Albuterol (Ventolin 2.5 Mg/3 Ml Neb.Lois*) 2.5 mg INH [id number] AWAKE PRN PRN Reason: WHEEZING Last Admin: 03/28/17 17:58 Dose: 2.5 mg Alprazolam (Xanax Tab*) 0.5 mg PO TID PRN PRN Reason: ANXIETY Last Admin: 03/30/17 06:40 Dose: 0.5 mg Amiodarone HCl (Cordarone Tab*) 200 mg PO DAILY [facility] [place] Last Admin: 03/30/17 08:12 Dose: 200 mg Apixaban (Eliquis*) 5 mg PO BID [facility] [place] Last Admin: 03/30/17 08:12 Dose: 5 mg Atorvastatin Calcium (Lipitor*) 20 mg PO DAILY [facility] [place] Last Admin: 03/30/17 08:10 Dose: 20 mg Carvedilol (Coreg Tab*) 25 mg PO BID [facility] [place] Last Admin: 03/30/17 08:11 Dose: 25 mg Docusate Sodium (Colace Cap*) 200 mg PO BID [facility] [place] Last Admin: 03/30/17 08:11 Dose: 200 mg Lisinopril (Prinivil Tab*) 10 mg PO DAILY [facility] [place] Last Admin: 03/30/17 08:11 Dose: 10 mg Mometasone Furoate/Formoterol Fumar (Dulera 200/5 Mdi*) 2 puff INH BID PRN PRN Reason: SHORTNESS OF BREATH Potassium Chloride (Klor Con Er Tab*) 40 meq PO DAILY [facility] [place] Last Admin: 03/30/17 08:10 Dose: 40 meq Quetiapine Fumarate (Seroquel Tab*) 400 mg PO BEDTIME [facility] [place] Last Admin: 03/29/17 21:17 Dose: 400 mg Spironolactone (Aldactone Tab*) 50 mg PO DAILY@1100 [facility] [place] Last Admin: 03/30/17 11:07 Dose: 50 mg Tiotropium Roggen (Spiriva Cap.Inh*) 1 cap INH DAILY [facility] [place] Last Admin: 03/30/17 08:30 Dose: 1 cap Torsemide (Demadex*) 40 mg PO BID [facility] [place] Last Admin: 03/30/17 08:11 Dose: 40 mg Tramadol HCl (Ultram*) 50 mg PO Q6HR PRN PRN Reason: PAIN Last Admin: 03/30/17 06:39 Dose: 50 mg Trazodone HCl (Desyrel Tab*) 100 mg PO BEDTIME [facility] [place] Last Admin: 03/29/17 21:17 Dose: 100 mg Vital Signs 03/29/17 03/29/17 03/29/17 15:14 16:05 16:06 Temperature 98.1 F Pulse Rate 62 Respiratory 16 16 16 Rate Blood Pressure 110/58 (mmHg) O2 Sat by Pulse 94 Oximetry 03/29/17 03/29/17 03/29/17 16:55 18:05 18:06 Temperature Pulse Rate Respiratory 16 16 Rate Blood Pressure (mmHg) O2 Sat by Pulse 92 Oximetry 03/29/17 03/29/17 03/29/17 19:42 21:00 23:55 Temperature 98.4 F 98.1 F Pulse Rate 75 64 Respiratory 16 16 20 Rate Blood Pressure 115/63 105/63 (mmHg) O2 Sat by Pulse 91 95 Oximetry 03/30/17 03/30/17 03/30/17 00:18 00:19 02:18 Temperature Pulse Rate Respiratory 16 16 15 Rate Blood Pressure (mmHg) O2 Sat by Pulse Oximetry 03/30/17 03/30/17 03/30/17 02:19 04:12 06:39 Temperature 97.6 F Pulse Rate 63 Respiratory 15 20 16 Rate Blood Pressure 134/89 (mmHg) O2 Sat by Pulse 92 Oximetry 03/30/17 03/30/17 03/30/17 06:40 07:22 08:00 Temperature 98.0 F Pulse Rate 67 Respiratory 16 24 24 Rate Blood Pressure 105/50 (mmHg) O2 Sat by Pulse 100 Oximetry 03/30/17 03/30/17 03/30/17 08:31 08:39 08:40 Temperature Pulse Rate Respiratory 16 16 Rate Blood Pressure (mmHg) O2 Sat by Pulse 93 Oximetry 03/30/17 13:26 Temperature 97.2 F Pulse Rate 62 Respiratory 16 Rate Blood Pressure 108/66 (mmHg) O2 Sat by Pulse 94 Oximetry Oxygen Devices in Use Now: Nasal Cannula Appearance: NAD, sitting side of bed off NC Eyes: No Scleral Icterus, PERRLA Ears/Nose/Mouth/Throat: NL Teeth, Lips, Gums, Mucous Membranes Moist Neck: NL Appearance and Movements; NL JVP, Trachea Midline Respiratory: Symmetrical Chest Expansion and Respiratory Effort, Clear to Auscultation Cardiovascular: NL Sounds; No Murmurs; No JVD, RRR, No Edema Abdominal: - - morbid obesity Extremities: No Edema, No Clubbing, Cyanosis Skin: No Rash or Ulcers, No Nodules or Sclerosis Neurological: Alert and Oriented x 3 Result Diagrams: 03/27/17 07:12 03/30/17 06:00 Additional Lab and Data: Laboratory Results - last 24 hr 03/30/17 06:00 Sodium 140 Potassium 3.6 Chloride 96 L Carbon Dioxide 39 H Anion Gap 5 BUN 39 H Creatinine 1.27 H Est GFR ( Amer) 55.0 Est GFR (Non-Af Amer) 42.8 BUN/Creatinine Ratio 30.7 H Glucose 96 Calcium 9.0 Magnesium 2.0 Microbiology and Other Data: Microbiology 03/26/17 13:20 Blood Venous Aerobic Blood Culture - Preliminary No Growth Day 4 03/26/17 13:20 Blood Venous Anaerobic Blood Culture - Preliminary No Growth Day 4 03/26/17 13:20 Blood Venous Blood Culture - Final 03/26/17 12:50 Blood Venous Aerobic Blood Culture - Preliminary No Growth Day 4 03/26/17 12:50 Blood Venous Anaerobic Blood Culture - Preliminary No Growth Day 4 03/26/17 12:50 Blood Venous Blood Culture - Final 03/26/17 21:54 Nasopharyngeal Influenza Types A,B Antigen (JOAO) - Final Specimen received for Influenza A/B Molecular testing Assess/Plan/Problems-Billing Assessment: 61 year old female H systolic CHF (improved from 20-> 30-35% here), pAfib( Eliquis), FRANCIS, Morbid Obesity(BMI 57) p/w with SOB, weight gain likely acute on chronic systolic CHF exacerbation 2/2 4 weeks of medication noncompliance and 3 months of dietary noncompliance. Diuresing well - Patient Problems (1) Acute systolic CHF (congestive heart failure) Current Visit: No Status: Acute Priority: High Onset Date: 10/25/14 Code (s): I50.21 - ACUTE SYSTOLIC (CONGESTIVE) HEART FAILURE SNOMED Code(s): 335172627 Comment: - Acute exacerbation 2/2 medication & dietary non-compliance - 330 lbs, ~20lb increase in month. Does not know dry weight. Daily weights, strict i/os - s/p lasix 80IV in ED then 40mg IV BID. not sufficiently negative. Switch back to torsemide (home is 20mg BID but actually taking 10mg daily. Diuresing well on torsemide 40mg BID. WELT SOLE LAYER stable. BB, ACEI, spironolactone as BP tolerates. continue reduced coreg at 25mg BID ( home was 50mg BID) (2) CKD (chronic kidney disease), stage III Current Visit: No Status: Acute Priority: High Code(s): N18.3 - CHRONIC KIDNEY DISEASE, STAGE 3 (MODERATE) SNOMED Code(s): 150891515 Comment: WELT SOLE LAYER 1.3. Baseline ~1.0-1.2. Stable. (3) Cough Current Visit: No Status: Acute Priority: High Onset Date: 09/08/15 Code (s): R05 - COUGH SNOMED Code(s): 86080234 Comment: improved. likely 2/2 acute CHF (4) Acute respiratory failure Current Visit: Yes Status: Acute Code(s): J96.00 - ACUTE RESPIRATORY FAILURE , UNSP W HYPOXIA OR HYPERCAPNIA SNOMED Code(s): 18457093 Comment: Sat 77% on RA in ED. 2.5L now. further wean as tolerated. 2/2 CHF exac (5) Non-sustained ventricular tachycardia Current Visit: No Status: Acute Priority: High Code(s): I47.2 - VENTRICULAR TACHYCARDIA SNOMED Code(s): 052116290 Comment: continue telemetry and lyte repletion during diuresis. EF improved. PPM continue home amio 200mg daily (6) Hypertension Current Visit: No Status: Chronic Priority: High Onset Date: 01/29/14 Code(s): I10 - ESSENTIAL (PRIMARY) HYPERTENSION SNOMED Code(s): 91656544 Comment: coreg, torsemide, lisinopril, spironolactone. (7) FRANCIS (obstructive sleep apnea) Current Visit: No Status: Chronic Priority: Medium Code(s): G47.33 - OBSTRUCTIVE SLEEP APNEA (ADULT) (PEDIATRIC) SNOMED Code(s): 89015753 Comment: FRANCIS (continue bipap at night). ?sleep study since September? Status and Disposition: medicine inpatient for AoC CHF exaccerbation. Diuresing well, hopeful for 03/31 Attending: Wagner Lewis
[2017-03-30] MEDS: QUEtiapine TAB* 100 MG PO SCH (20:38)
[2017-03-30] MEDS: traZODone TAB* 100 MG PO SCH (20:38)
[2017-03-31] MEDS: traMADol TAB* 50 MG PO PRN ×2 (03:58→12:43)
[2017-03-31] MEDS: ALPRAZolam TAB* 0.5 MG PO PRN ×2 (03:58→12:43)
[2017-03-31 06:56] LABS: BUN/Creatinine Ratio 30.9 (8-20); Calcium 9.1 mg/dL (8.6-10.3); EGFR African American 50.8 (>60); EGFR Non-African American 39.5 (>60); Magnesium 1.9 mg/dL (1.9-2.7); Potassium 3.3 mmol/L (3.5-5.0)
[2017-03-31] MEDS ORDERED: Potassium Chlor TAB* 20 MEQ TAB.ER PO ONE (08:38)
[2017-03-31] MEDS: Tiotropium CAP.INH* CAP.INH/18 MCG (USE ORDER SET !) INH SCH (08:40)
[2017-03-31] MEDS: Apixaban* 5 MG TAB PO SCH (08:41)
[2017-03-31] MEDS: Amiodarone TAB* 200 MG PO SCH (08:41)
[2017-03-31] MEDS: Carvedilol TAB* 25 MG PO SCH (08:42)
[2017-03-31] MEDS: Torsemide TAB* 20 MG PO SCH (08:42)
[2017-03-31] MEDS: Atorvastatin* 20 MG TAB PO SCH (08:42)
[2017-03-31] MEDS: Docusate CAP* 100 MG PO SCH (08:42)
[2017-03-31] MEDS: Potassium Chlor TAB* 20 MEQ TAB.ER PO SCH (08:42)
[2017-03-31] MEDS: Lisinopril TAB* 10 MG PO SCH (08:42)
[2017-03-31] MEDS: Spironolactone TAB* 25 MG PO SCH (11:01)
[2017-03-31 12:50] VITALS: BP 117/61
== END 2017-03-31 15:30 | disposition home or self-care (01) | DRG 291 ==
LOC: ED 11:44 → MEDTELE 14:43
PROVIDERS: ADMIT Internal Medicine; ATTEND Internal Medicine
PROC: 5A09357 Assistance with Respiratory Ventilation, Less than 24 Consecutive Hours, Continuous Positive Airway Pressure (ICD-10-PCS; principal; 2017-03-26)
DX: I13.0 Hypertensive heart and chronic kidney disease with heart failure and stage 1 through stage 4 chronic kidney disease, or unspecified chronic kidney disease (principal); I50.23 Acute on chronic systolic (congestive) heart failure; J96.01 Acute respiratory failure with hypoxia; I47.2 Ventricular tachycardia; I42.9 Cardiomyopathy, unspecified; E66.01 Morbid (severe) obesity due to excess calories; N18.3 Chronic kidney disease, stage 3 (moderate); J44.9 Chronic obstructive pulmonary disease, unspecified; F41.9 Anxiety disorder, unspecified; F17.210 Nicotine dependence, cigarettes, uncomplicated; E78.5 Hyperlipidemia, unspecified; G47.33 Obstructive sleep apnea (adult) (pediatric); I48.0 Paroxysmal atrial fibrillation; Z91.19 Patient's noncompliance with other medical treatment and regimen; Z80.1 Family history of malignant neoplasm of trachea, bronchus and lung; Z91.14 Patient's other noncompliance with medication regimen; Z91.11 Patient's noncompliance with dietary regimen; Z88.6 Allergy status to analgesic agent; Z85.72 Personal history of non-Hodgkin lymphomas; Z95.810 Presence of automatic (implantable) cardiac defibrillator; Z68.43 Body mass index [BMI] 50.0-59.9, adult; Z23 Encounter for immunization
CPT/HCPCS: 36415; 71010; 80048; 80053; 83605; 83735; 83880; 84484; 85025; 85610; 87040; 87502; 90686; 93005; 93306; 94640; 94660; 94760; 99406; A9270-GY; J1940; J2930; J3475

== ENCOUNTER 2017-06-15 20:15 | Inpatient (IN) | payer OTHER, MEDICARE ==
[2017-06-15] MEDS ORDERED: Diltiazem IV* 5 MG/ML 5 ML VIAL (for loading dose/IV Push) (25 MG) IV SLOW PU ONE ×2 (22:21→23:16)
[2017-06-15 22:44] LABS: ABS Basophils 0 10^3/ul (0-0.2); ABS Eosinophils 0.1 10^3/ul (0-0.6); ABS Lymphocytes 1.1 10^3/ul (1.0-4.8); ABS Monocytes 0.5 10^3/ul (0-0.8); ABS Neutrophils 4.8 10^3/ul (1.5-7.7); ABS Nucleated RBC 0.12 10^3/ul; Eosinophil % 0.9 % (0-6); Hematocrit 33 % (35-47); Hemoglobin 10.8 g/dl (12.0-16.0); Lymphocyte % 16.4 % (25-47); Mean Corpuscular HGB Conc 32 g/dl (31-36); Mean Corpuscular Hemoglobin 26 pg (27-31); Mean Corpuscular Volume 82 fL (80-97); Mean Platelet Volume 9 um3 (7.4-10.4); Nucleated Red Blood Cells % 1.8; Platelet Count 205 10^3/ul (150-450); Red Blood Count 4.09 10^6/ul (4.0-5.4); Red Cell Distribution Width 19 % (10.5-15); White Blood Count 6.5 10^3/ul (3.5-10.8)
[2017-06-15] MEDS ORDERED: Ondansetron INJ* 2 MG/ML VIAL IV ONE (23:07)
[2017-06-15] MEDS ORDERED: Morphine INJ* 4 MG/ML 1 ML CARPUJECT IV ONE (23:07)
[2017-06-15 23:09] LABS: INR 1.06 (0.77-1.02)
--- NOTE | 2017-06-15 23:17 | ED ---
Tony Bello Stephanie, scribed for Kelsie Vicente MD on 06/15/17 at 2220 . Shortness of Breath - HPI Summary HPI Summary: Pt is a 61 y/o F presenting to the ED with c/o SOB that began (). Symptoms began after walking 7 flights of stairs. Pt took extra Torsemide after symptoms began. Admits she had potato chips and extra salt over . Symptoms include productive cough, abd pain, neck pain, calf and pedal edema. States her bilat ribs hurt with coughing. Pt denies CP and fever. Pt has hx a-fib with RVR, states she has never been cardioverted. States she was treated with doxycycline first, then zpak, but did not improve. Drove to [place] for . Hx lymphoma, CKD stage III. Is not on home O2 at present. States she "ran out" of O2. Also states her CPAP is "broken". States she has Dr. Stuart is her PCP and doesn't know why she doesn't have more home O2 ordered. - History of Current Complaint Chief Complaint: EDShortnessOfBreath Time Seen by Provider: 06/15/17 21:52 Hx Obtained From: Patient, Family/Director [employer] - and grandson Onset/Duration: Lasting Weeks - 2 Timing: Constant Dyspnea At: Rest Aggrevating Factors: Movement Alleviating Factors: Nothing Associated Signs & Symptoms: Cough (Productive), Chest Pain w/Cough, Calf Pain/ Swelling, Edema - pedal Related History: Similar Episode - afib with RVR - Risk Factors Pulmonary Embolism: Malignancy, Recent Travel Cardiac: CAD, Hypertension, CHF - Allergy/Home Medications Allergies/Adverse Reactions: Allergies Allergy/AdvReac Type Severity Reaction Status Date / Time Aspirin Allergy Severe Difficulty Verified 06/15/17 20:21 Breathing PMH/Surg Hx/FS Hx/Imm Hx Previously Healthy: No Cardiovascular History: Reports: Hx Angina, Hx Atrial Fibrillation, Hx Auto Implanted Cardiovert Defib - defibrillator, Hx Congestive Heart Failure, Hx Hypertension, Other Cardiovascular Problems/Disorders Respiratory History: Reports: Hx Chronic Obstructive Pulmonary Disease (COPD) History: Reports: Hx Chronic Renal Failure Sensory History: Denies: Hx Contacts or Glasses, Hx Hearing Aid Opthamlomology History: Denies: Hx Contacts or Glasses Psychiatric History: Reports: Hx Anxiety - Cancer History Cancer Type, Location and Year: lymphoma/12/23 - Surgical History Surgery Procedure, Year, and Place: hernia repair/orif right foot Infectious Disease History: No Infectious Disease History: Denies: Traveled Outside the [place] in Last 30 Days - Family History Known Family History: Positive: Other - Father - [place] Negative: Cardiac Disease, Hypertension, Diabetes - Social History Lives: With Family Alcohol Use: Occasionally Alcohol Amount: monthly Hx Substance Use: No Substance Use Type: Reports: None Hx Tobacco Use: Yes Smoking Status (MU): Light Every Day Tobacco Smoker Type: Cigarettes Amount Used/How Often: 1/2 ppd Length of Time of Smoking/Using Tobacco: 39 years Have You Smoked in the Last Year: Yes Review of Systems Negative: Fever ENT: Other - Neck pain Negative: Chest Pain Positive: Cough - productive Positive: Abdominal Pain Positive: Edema - calf and pedal edema Skin: Negative Neurological: Negative Psychological: Normal All Other Systems Reviewed And Are Negative: Yes Physical Exam - Summary Physical Exam Summary: Appearance: Ill-appearing, moderate pain distress, Obese Skin: Warm, color reflects adequate perfusion Head: Normal Head/Face inspection Eyes: Conjunctiva clear ENT: Normal inspection Neck: Supple, no nodes, no JVD. Respiratory: dyspnea at rest, Respiration 28, Lungs have rales bibasilar and scattered rhonchi, Speaks full sentences Cardio: RRR, No murmur, pulses normal, brisk capillary refill, HR 143. BP 106/ 89. 99% o2 saturation. No slowing of HR with Valsalva and R carotid massage Abdomen: soft, obese, minimal diffuse tenderness, no masses, no guarding, no rebound Bowel sounds: present Musculoskeletal: Strength Intact/ ROM intact. No calf tenderness. Bilateral pedal edema Neuro: Alert, muscle tone normal, facial symmetry, speech normal, sensory/motor intact Psychological: Normal Triage Information Reviewed: Yes Vital Signs On Initial Exam: Initial Vitals Temp Pulse Resp BP Pulse Ox 97.3 F 80 28 130/98 86 06/15/17 20:17 06/15/17 20:17 06/15/17 20:17 06/15/17 20:17 06/15/17 20:17 Vital Signs Reviewed: Yes Diagnostics - Vital Signs Vital Signs Temp Pulse Resp BP Pulse Ox 06/15/17 22:00 86 24 93 06/15/17 21:51 106/89 06/15/17 20:17 97.3 F 80 28 130/98 86 - Laboratory Lab Results: Lab Results 06/15/17 06/15/17 06/15/17 Range/Units 22:20 22:20 22:20 WBC (3.5-10.8) 10^3/ul RBC (4.0-5.4) 10^6/ul Hgb (12.0-16.0) g/dl Hct (35-47) % MCV (80-97) fL MCH (27-31) pg MCHC (31-36) g/dl RDW (10.5-15) % Plt Count (150-450) 10^3/ul MPV (7.4-10.4) um3 Neut % (Auto) (38-83) % Lymph % (Auto) (25-47) % [place] % (Auto) (1-9) % Eos % (Auto) (0-6) % Baso % (Auto) (0-2) % Absolute Neuts (auto) (1.5-7.7) 10^3/ul Absolute Lymphs (auto) (1.0-4.8) 10^3/ul Absolute Monos (auto) (0-0.8) 10^3/ul Absolute Eos (auto) (0-0.6) 10^3/ul Absolute Basos (auto) (0-0.2) 10^3/ul Absolute Nucleated RBC 10^3/ul Nucleated RBC % INR (Anticoag Therapy) 1.06 H (0.77-1.02) APTT 29.0 (26.0-36.3) seconds D-Dimer, Quantitative 605 H (Less Than 230) ng/mL Sodium 140 (133-145) mmol/L Potassium 4.1 (3.5-5.0) mmol/L Chloride 101 (101-111) mmol/L Carbon Dioxide 34 H (22-32) mmol/L Anion Gap 5 (2-11) mmol/L BUN 28 H (6-24) mg/dL Creatinine 1.51 H (0.51-0.95) mg/dL Est GFR ( Amer) 45.1 (>60) Est GFR (Non-Af Amer) 35.0 (>60) BUN/Creatinine Ratio 18.5 (8-20) Glucose 104 H (70-100) mg/dL Lactic Acid (0.5-2.0) mmol/L Calcium 8.7 (8.6-10.3) mg/dL Total Bilirubin 0.40 (0.2-1.0) mg/dL AST 7 L (13-39) U/L ALT 8 (7-52) U/L Alkaline Phosphatase 76 (34-104) U/L Total Creatine Kinase 37 (10-223) U/L CK-MB (CK-2) 1.1 (0.6-6.3) ng/mL Troponin I 0.02 (<0.04) ng/mL C-Reactive Protein 93.11 H (< 5.00) mg/L B-Natriuretic Peptide 368 H ( - 100) pg/mL Total Protein 6.6 (6.4-8.9) g/dL Albumin 3.3 (3.2-5.2) g/dL Globulin 3.3 (2-4) g/dL Albumin/Globulin Ratio 1.0 (1-3) Influenza A (Rapid) (Negative) Influenza B (Rapid) (Negative) 06/15/17 06/15/17 06/15/17 Range/Units 22:20 22:20 22:42 WBC 6.5 (3.5-10.8) 10^3/ul RBC 4.09 (4.0-5.4) 10^6/ul Hgb 10.8 L (12.0-16.0) g/dl Hct 33 L (35-47) % MCV 82 (80-97) fL MCH 26 L (27-31) pg MCHC 32 (31-36) g/dl RDW 19 H (10.5-15) % Plt Count 205 (150-450) 10^3/ul MPV 9 (7.4-10.4) um3 Neut % (Auto) 74.3 (38-83) % Lymph % (Auto) 16.4 L (25-47) % [place] % (Auto) 7.7 (1-9) % Eos % (Auto) 0.9 (0-6) % Baso % (Auto) 0.7 (0-2) % Absolute Neuts (auto) 4.8 (1.5-7.7) 10^3/ul Absolute Lymphs (auto) 1.1 (1.0-4.8) 10^3/ul Absolute Monos (auto) 0.5 (0-0.8) 10^3/ul Absolute Eos (auto) 0.1 (0-0.6) 10^3/ul Absolute Basos (auto) 0 (0-0.2) 10^3/ul Absolute Nucleated RBC 0.12 10^3/ul Nucleated RBC % 1.8 INR (Anticoag Therapy) (0.77-1.02) APTT (26.0-36.3) seconds D-Dimer, Quantitative (Less Than 230) ng/mL Sodium (133-145) mmol/L Potassium (3.5-5.0) mmol/L Chloride (101-111) mmol/L Carbon Dioxide (22-32) mmol/L Anion Gap (2-11) mmol/L BUN (6-24) mg/dL Creatinine (0.51-0.95) mg/dL Est GFR ( Amer) (>60) Est GFR (Non-Af Amer) (>60) BUN/Creatinine Ratio (8-20) Glucose (70-100) mg/dL Lactic Acid 0.8 (0.5-2.0) mmol/L Calcium (8.6-10.3) mg/dL Total Bilirubin (0.2-1.0) mg/dL AST (13-39) U/L ALT (7-52) U/L Alkaline Phosphatase (34-104) U/L Total Creatine Kinase (10-223) U/L CK-MB (CK-2) (0.6-6.3) ng/mL Troponin I (<0.04) ng/mL C-Reactive Protein (< 5.00) mg/L B-Natriuretic Peptide ( - 100) pg/mL Total Protein (6.4-8.9) g/dL Albumin (3.2-5.2) g/dL Globulin (2-4) g/dL Albumin/Globulin Ratio (1-3) Influenza A (Rapid) Negative (Negative) Influenza B (Rapid) Negative (Negative) Result Diagrams: 06/15/17 22:20 06/15/17 22:20 Lab Statement: Any lab studies that have been ordered have been reviewed, and results considered in the medical decision making process. - Radiology CXR Xray Interpretation: Positive (See Comments) - cephalization, cardiomegaly, essentially unchanged c/w 03/2017 Radiology Interpretation Completed By: ED Physician - EKG 21:50 EKG Rhythm: Atrial Fibrillation - 183 BPM EKG Interpretation: Nml IV CT. Nml QTc L axis (-44) NSSTTW changes. EKG Comparison: Other - Compared with EKG from 03/27/17. Pt was in sinus rhythm on 03/27/17. Re-Evaluation - Re-Evaluation First Eval Re-Evaluation Time: 22:45 Change: Improved - HR 105 BP syst 111 after cardizem 20mg IV, SOB at rest, coughing and expectorating clear phlegm Second Eval Re-Evaluation Time: 23:15 Change: Worse - after coughing HR increased to 125, will give cardizem 15mg more , discussed with Dr. Gutiérrez who will evaluate pt Third Eval Change: Worse - O2 sat 88% on room air, HR 101 after second diltiazem, pt medicated with morphine and zofran for bilat rib pain after coughing. Pt is not on home O2. Elevated d dimer, can have CTA based on GFR, aspirin allergy is not anaphylaxis. CTA ordered. Course/Dx - Course Course Of Treatment: Pt given Diltiazem 20 mg IV to slow rate of A-fib. Diltiazem slowed HR to 105 and BP remained stable. Pt will be evaluated for admission by Dr. Gutiérrez. Dr. Stark aware of pt in the ED. Given additional 15mg diltiazem IV, with HR 101. CTA ordered for increased d dimer and hx lymphoma and recent car trip, and afib with RVR. CTA pending at time of shift change 23:50 06/15/17. - Diagnoses Differential Diagnosis/HQI/PQRI: Positive: Bronchitis, CHF, DE, Pneumonia, Pulmonary Embolism, Pulmonary Edema Provider Diagnoses: Atrial fibrillation with rapid ventricular response, Shortness of breath, Cough Discharge - Discharge Plan Condition: Stable Disposition: OTHER Discharge Disposition Comment: pending CTA chest, Dr. Gutiérrez to evaluate, Dr. Stark aware of pt in ED Referrals: Blake Stuart MD [Primary Care Provider] - The documentation as recorded by the scribe, Tony,Alisa accurately reflects the service I personally performed and the decisions made by me, Kelsie Vicente MD.
[2017-06-16] MEDS ORDERED: Iodixanol* (CONTRAST) 320 MG/ML 100 ML SDV IV ONE (00:02)
[2017-06-16] MEDS ORDERED: Levalbuterol 1.25MG/0.5ML NEB INH ONE (00:19)
--- NOTE | 2017-06-16 02:15 | RAD ---
INDICATION: Shortness of breath, atrial fibrillation. History of lymphoma. Recent car trip. COMPARISON: June 01, 2017 CT. TECHNIQUE: Multidetector CT images were obtained from the lung apices to the upper abdomen with 100 mL Visipaque 320 IV contrast. Pulmonary angiogram protocol. Multiplanar reformation including with maximum intensity projection. REPORT: Very mild nonmass-like groundglass consolidation at the RIGHT upper lobe. Negative for pleural effusions. Negative for thoracic lymphadenopathy. Cardiomegaly. Negative for pericardial effusion. Normal diameter thoracic aorta. Negative for aortic dissection. Multiple filling defects within bilateral pulmonary arteries with thrombus seen as far proximal as the main pulmonary artery extending into the RIGHT middle lobe and RIGHT lower lobe segmental and subsegmental pulmonary arteries with the greatest clot burden at the segmental pulmonary arteries of the RIGHT lower lobe. Limited images through the upper abdomen are remarkable for passive congestion of the liver. Negative for suspicious thoracic osseous lesions. IMPRESSION: 1. Moderately large burden of bilateral acute pulmonary embolism. 2. Mild groundglass consolidation at the RIGHT upper lobe most suspicious for mild ischemic pneumonitis. 3. Negative for lymphadenopathy. 4. Cardiomegaly. 5. Passive congestion of the liver. Results called to Dr. Chavarria 06/16/2017 2:10 AM EST
[2017-06-16] MEDS ORDERED: Heparin DRIP 25,000 UNITS(*) 25,000 UNITS/500 ML BAG IVPB SCH (02:30)
[2017-06-16] MEDS ORDERED: Heparin VIAL(*) 5000 UNITS/ML VIAL (FIVE THOUSAND) IV SCH (03:00)
[2017-06-16] MEDS ORDERED: Ondansetron INJ* 2 MG/ML VIAL IV PRN (04:00)
--- NOTE | 2017-06-16 04:02 | HP ---
H&P (Free Text) History and Physical: PCP: Darby Stuart MD Date/Time: 06/16/2017 0015 CC: SOB HPI: Mrs Robledo is a 61YO super morbidly obese female HX COPD, AFIB, chronic systolic HF EF 20-25%, CKD 3b, lymphoma who reports onset of SOB ~2 days before Kimberly without chest pain, sweating, N/V, palpitations, light-headedness, cough, congestion, or other issues. She travelled to [place] over the holiday, but reports adherence with her apixan. BLE are mildly more swollen than baseline. She admits to sodium indiscretion. The SOB is worse with activity such as climbing stairs and improved with rest. Work up revealed a BNP at her baseline, no concerning ECG changes, and negative CXR. A d-dimer was positive at 605 and CTA revealed B pulmonary emboli. As such she will be admitted, apixaban held, and heparin GTT started. PMedHx COPD AFIB on apixaban chronic systolic HF EF 20-25% stable angina CKD stg 3b HX lymphoma FRANCIS non-adherent w/ CPAP HTN HLD Ambulatory Orders Nursing to reconcile. Lisinopril TAB* [Prinivil TAB 10 MG*] 20 mg PO DAILY 07/08/12 ALPRAZolam TAB* [Xanax TAB*] 0.5 mg PO TID PRN 10/25/14 Carvedilol TAB* [Coreg TAB*] 50 mg PO BID 10/25/14 Multivitamins/Minerals TAB* [Theragran/minerals TAB*] 1 tab PO DAILY 10/25/14 Spironolactone TAB* [Aldactone TAB 25 MG*] 50 mg PO DAILY 10/25/14 Torsemide TAB* [Demadex 20 MG*] 20 mg PO BID 10/25/14 traMADol TAB* [Ultram*] 50 - 100 mg PO Q6HR PRN 10/25/14 Amiodarone TAB* [Cordarone Tab*] 200 mg PO DAILY 09/08/15 Potassium Chlor TAB* [Potassium Chlor TAB 20 MEQ*] 40 meq PO DAILY 09/08/15 traZODone TAB* [Desyrel TAB*] 100 mg PO BEDTIME 09/08/15 Albuterol 2.5MG/3ML (0.083%)* [Ventolin 2.5 MG/3 ML NEB.PALLAVI*] 2.5 mg INH RT.Q6HR -WHILE AWAKE PRN #50 ml 09/26/16 Docusate CAP* [Colace Cap*] 200 mg PO BID #60 cap 09/26/16 Nicotine PATCH 21 MG/24 HR* 21 mg TRANSDERM DAILY #28 patch 09/26/16 Tiotropium CAP.INH* [Spiriva CAP.INH*] 1 cap INH DAILY #30 cap.inh 09/26/16 Apixaban* [Eliquis*] 5 mg PO BID 03/26/17 Atorvastatin* [Lipitor 20 MG*] 20 mg PO DAILY 03/26/17 Mometasone/Formoter 200/5 MDI* [Dulera 200/5 MDI*] 2 puff INH BID PRN 03/26/17 Quetiapine Fumarate 400 mg PO BEDTIME 03/26/17 Allergies Aspirin Allergy (Severe, Verified 06/15/17 20:21) Difficulty Breathing hives SocHx: former smoker quit 2 months ago, occasional alcohol, no recreational drugs; lives with her ; full code status FamHx: positive for lung CA in her father ROS: as above, otherwise reviewed and all were negative vitals: Vital Signs Temp 36.3 C 06/15/17 20:17 Pulse 85 06/16/17 01:03 Resp 20 06/16/17 01:03 BP 93/56 06/15/17 23:31 Pulse Ox 97 06/16/17 01:03 Intake & Output 06/15/17 06/15/17 06/16/17 11:59 23:59 11:59 Weight 131.542 kg Constitutional: NAD, normally developed, super morbidly obese black female HEENM: atraumatic; sclera/conjunctiva: anicteric/clear; hearing: clinically intact; oropharynx: clear, mucosa moist Neck: soft tissue: non-tender; thyroid: normal, non-tender Pulmonary: mild mid- to end-expiratory wheeze, fair aeration, no accessory muscle use CV: RR/RR, normal S1S2, no carotid bruit, no jugular venous distention, 2+ B DP/ PT, no edema Abdominal: soft, non-distended, non-tender, no rebound/guarding/rigidity, normoactive bowel sounds, no hepatosplenomegaly or masses, no costovertebral angle tenderness Musculoskeletal: general: grossly intact, no calf tenderness, negative Ninoska's B Integumental: normal appearance and texture of exposed skin Psychiatric orientation: AA&O to PPS affect: calm mood: cooperative eye contact: fair to good content: seemingly reliable responses: timely insight: fair Testing: Lab Results 06/15/17 06/15/17 06/15/17 Range/Units 22:20 22:20 22:20 WBC (3.5-10.8) 10^3/ul RBC (4.0-5.4) 10^6/ul Hgb (12.0-16.0) g/dl Hct (35-47) % MCV (80-97) fL MCH (27-31) pg MCHC (31-36) g/dl RDW (10.5-15) % Plt Count (150-450) 10^3/ul MPV (7.4-10.4) um3 Neut % (Auto) (38-83) % Lymph % (Auto) (25-47) % [place] % (Auto) (1-9) % Eos % (Auto) (0-6) % Baso % (Auto) (0-2) % Absolute Neuts (auto) (1.5-7.7) 10^3/ul Absolute Lymphs (auto) (1.0-4.8) 10^3/ul Absolute Monos (auto) (0-0.8) 10^3/ul Absolute Eos (auto) (0-0.6) 10^3/ul Absolute Basos (auto) (0-0.2) 10^3/ul Absolute Nucleated RBC 10^3/ul Nucleated RBC % INR (Anticoag Therapy) 1.06 H (0.77-1.02) APTT 29.0 (26.0-36.3) seconds D-Dimer, Quantitative 605 H (Less Than 230) ng/mL Sodium 140 (133-145) mmol/L Potassium 4.1 (3.5-5.0) mmol/L Chloride 101 (101-111) mmol/L Carbon Dioxide 34 H (22-32) mmol/L Anion Gap 5 (2-11) mmol/L BUN 28 H (6-24) mg/dL Creatinine 1.51 H (0.51-0.95) mg/dL Est GFR ( Amer) 45.1 (>60) Est GFR (Non-Af Amer) 35.0 (>60) BUN/Creatinine Ratio 18.5 (8-20) Glucose 104 H (70-100) mg/dL Lactic Acid (0.5-2.0) mmol/L Calcium 8.7 (8.6-10.3) mg/dL Total Bilirubin 0.40 (0.2-1.0) mg/dL AST 7 L (13-39) U/L ALT 8 (7-52) U/L Alkaline Phosphatase 76 (34-104) U/L Total Creatine Kinase 37 (10-223) U/L CK-MB (CK-2) 1.1 (0.6-6.3) ng/mL Troponin I 0.02 (<0.04) ng/mL C-Reactive Protein 93.11 H (< 5.00) mg/L B-Natriuretic Peptide 368 H ( - 100) pg/mL Total Protein 6.6 (6.4-8.9) g/dL Albumin 3.3 (3.2-5.2) g/dL Globulin 3.3 (2-4) g/dL Albumin/Globulin Ratio 1.0 (1-3) Influenza A (Rapid) (Negative) Influenza B (Rapid) (Negative) 06/15/17 06/15/17 06/15/17 Range/Units 22:20 22:20 22:42 WBC 6.5 (3.5-10.8) 10^3/ul RBC 4.09 (4.0-5.4) 10^6/ul Hgb 10.8 L (12.0-16.0) g/dl Hct 33 L (35-47) % MCV 82 (80-97) fL MCH 26 L (27-31) pg MCHC 32 (31-36) g/dl RDW 19 H (10.5-15) % Plt Count 205 (150-450) 10^3/ul MPV 9 (7.4-10.4) um3 Neut % (Auto) 74.3 (38-83) % Lymph % (Auto) 16.4 L (25-47) % [place] % (Auto) 7.7 (1-9) % Eos % (Auto) 0.9 (0-6) % Baso % (Auto) 0.7 (0-2) % Absolute Neuts (auto) 4.8 (1.5-7.7) 10^3/ul Absolute Lymphs (auto) 1.1 (1.0-4.8) 10^3/ul Absolute Monos (auto) 0.5 (0-0.8) 10^3/ul Absolute Eos (auto) 0.1 (0-0.6) 10^3/ul Absolute Basos (auto) 0 (0-0.2) 10^3/ul Absolute Nucleated RBC 0.12 10^3/ul Nucleated RBC % 1.8 INR (Anticoag Therapy) (0.77-1.02) APTT (26.0-36.3) seconds D-Dimer, Quantitative (Less Than 230) ng/mL Sodium (133-145) mmol/L Potassium (3.5-5.0) mmol/L Chloride (101-111) mmol/L Carbon Dioxide (22-32) mmol/L Anion Gap (2-11) mmol/L BUN (6-24) mg/dL Creatinine (0.51-0.95) mg/dL Est GFR ( Amer) (>60) Est GFR (Non-Af Amer) (>60) BUN/Creatinine Ratio (8-20) Glucose (70-100) mg/dL Lactic Acid 0.8 (0.5-2.0) mmol/L Calcium (8.6-10.3) mg/dL Total Bilirubin (0.2-1.0) mg/dL AST (13-39) U/L ALT (7-52) U/L Alkaline Phosphatase (34-104) U/L Total Creatine Kinase (10-223) U/L CK-MB (CK-2) (0.6-6.3) ng/mL Troponin I (<0.04) ng/mL C-Reactive Protein (< 5.00) mg/L B-Natriuretic Peptide ( - 100) pg/mL Total Protein (6.4-8.9) g/dL Albumin (3.2-5.2) g/dL Globulin (2-4) g/dL Albumin/Globulin Ratio (1-3) Influenza A (Rapid) Negative (Negative) Influenza B (Rapid) Negative (Negative) ECG, personally reviewed: AFIB rate 138, no ischemia CXR, personally reviewed: no acute process, cardiomegaly, AICD CTA chest, personally reviewed: IMPRESSION: 1. Moderately large burden of bilateral acute pulmonary embolism. 2. Mild groundglass consolidation at the RIGHT upper lobe most suspicious for mild ischemic pneumonitis. 3. Negative for lymphadenopathy. 4. Cardiomegaly. 5. Passive congestion of the liver. Impression: 61F HX COPD, AFIB on apixaban, chronic systolic HF EF 20-25%, stable angina, CKD stg 3b, HX lymphoma presents with gradually worsening SOB since ~Jun 05 found to have B pulmonary emboli despite claiming adherence to apixaban DIAGNOSIS & PLAN Primary B pulmonary emboli : D/C apixaban : heparin GTT : supplemental oxygen : consider hematology consult in AM for guidance in further anticoagulation : supportive care Secondary COPD : albuterol nebs PRN AFIB : D/C apixaban as above : heparin GTT as above : rate control chronic systolic HF EF 20-25% : daily weights : strict I&Os CKD stg 3b : periodic monitoring HX lymphoma : no acute issues HTN : review meds once reconciled HLD : review meds once reconciled Admission Rational: inpatient for management of large B pulmonary emboli failed apixaban; inappropriate for outpatient setting DVTp: heparin GTT Code Status: full HCP:
[2017-06-16] MEDS ORDERED: Diltiazem DRIP* 100 MG/100 ML ADDV.BAG IVPB ONE ×2 (05:01→08:00)
[2017-06-16] MEDS: Diltiazem DRIP* 100 MG/100 ML ADDV.BAG IVPB ONE ×2 (05:14→07:00)
[2017-06-16] MEDS ORDERED: Omeprazole CAP* 20 MG PO SCH (06:00)
[2017-06-16 07:28] LABS: ABS Basophils 0 10^3/ul (0-0.2); ABS Eosinophils 0.1 10^3/ul (0-0.6); ABS Monocytes 0.5 10^3/ul (0-0.8); ABS Neutrophils 4.9 10^3/ul (1.5-7.7); ABS Nucleated RBC 0.06 10^3/ul; Hematocrit 32 % (35-47); Hemoglobin 10.6 g/dl (12.0-16.0); Lymphocyte % 14.7 % (25-47); Mean Corpuscular HGB Conc 33 g/dl (31-36); Mean Corpuscular Hemoglobin 27 pg (27-31); Mean Corpuscular Volume 83 fL (80-97); Mean Platelet Volume 9 um3 (7.4-10.4); Platelet Count 204 10^3/ul (150-450); Red Blood Count 3.93 10^6/ul (4.0-5.4); Red Cell Distribution Width 19 % (10.5-15); White Blood Count 6.5 10^3/ul (3.5-10.8)
--- NOTE | 2017-06-16 07:50 | RAD ---
HISTORY: Shortness of breath COMPARISONS: March 26, 2017 VIEWS: 4: Frontal dual-energy and lateral views of the chest. FINDINGS: CARDIOMEDIASTINAL SILHOUETTE: The cardiac silhouette is mildly enlarged. The cardiomediastinal silhouette is otherwise normal. SHERLEY: The sherley are normal. PLEURA: The costophrenic angles are sharp. No pleural abnormalities are noted. LUNG PARENCHYMA: There is a diffuse reticular pattern with indistinct pulmonary vessels. ABDOMEN: The upper abdomen is clear. There is no subphrenic gas. BONES AND SOFT TISSUES: No bone or soft tissue abnormalities are noted. OTHER: A left-sided AICD is noted. IMPRESSION: CARDIOMEGALY WITH PULMONARY INTERSTITIAL EDEMA
[2017-06-16] MEDS ORDERED: Amiodarone TAB* 200 MG PO ONE (08:59)
--- NOTE | 2017-06-16 09:23 | PN ---
Subjective Date of Service: 06/16/17 Interval History: Patient seen and examined at bedside. Ms. Robledo reports feeling aching in her neck and rib cage that she attributes to a cough; she endorses URI that started over 2 weeks ago. Cough has persisted and is non productive. Denies pain with inspiration or other chest pain. Denies fever/chills, n/v. She states that she has consistently taken her medications. Also reports that her CPAP machine has been broken for 2 weeks and she has been using portable O2 cannisters that have run out. Family History: Unchanged from Admission Social History: Unchanged from Admission Past Medical History: Unchanged from Admission Objective Active Medications: Acetaminophen (Tylenol Tab*) 650 mg PO Q6H PRN PRN Reason: FEVER/PAIN Albuterol (Ventolin 2.5 Mg/3 Ml Neb.Lois*) 2.5 mg INH Q2H PRN PRN Reason: SOB/WHEEZING Docusate Sodium (Colace Cap*) 200 mg PO BID [facility] Heparin Sodium (Porcine) (Heparin Vial(*)) 0 units IV .PER PROTOCOL [facility] PRN Reason: Protocol Heparin Sodium/Dextrose (Heparin Drip 25,000 Units(*)) 25,000 units in 500 mls @ 0 mls/hr IVPB .PER RATE LIYAH; Per Protocol PRN Reason: Protocol Diltiazem HCl (Cardizem Iv Advan*) 100 mg in 100 mls @ 10 mls/hr IVPB .PER RATE ONE Stop: 06/16/17 17:59 Melatonin (Melatonin (Nf)) 3 mg PO BEDTIME PRN; Protocol PRN Reason: Sleep Omeprazole (Prilosec Cap*) 20 mg PO DAILY@0600 [facility] Last Admin: 06/16/17 05:51 Dose: 20 mg Ondansetron HCl (Zofran Inj*) 4 mg IV Q6H PRN PRN Reason: NAUSEA Vital Signs - 8 hr 06/16/17 06/16/17 06/16/17 01:23 01:30 02:00 Temperature Pulse Rate 108 39 128 Respiratory 25 26 30 Rate Blood Pressure 92/70 122/88 92/68 (mmHg) O2 Sat by Pulse 88 96 97 Oximetry 06/16/17 06/16/17 06/16/17 02:30 03:00 03:07 Temperature Pulse Rate 126 77 126 Respiratory 21 17 22 Rate Blood Pressure 85/38 73/52 73/37 (mmHg) O2 Sat by Pulse 96 92 90 Oximetry 06/16/17 06/16/17 06/16/17 03:10 03:30 04:09 Temperature 97.3 F Pulse Rate 125 106 118 Respiratory 22 15 16 Rate Blood Pressure 96/81 96/81 96/81 (mmHg) O2 Sat by Pulse 90 93 96 Oximetry 06/16/17 06/16/17 06/16/17 04:15 05:20 05:25 Temperature 98.4 F Pulse Rate 65 138 Respiratory 24 Rate Blood Pressure 108/87 121/98 102/78 (mmHg) O2 Sat by Pulse 94 99 Oximetry 06/16/17 06/16/17 06/16/17 05:35 05:39 05:41 Temperature Pulse Rate 102 113 Respiratory Rate Blood Pressure 119/67 63/50 123/68 (mmHg) O2 Sat by Pulse 100 100 Oximetry 06/16/17 06/16/17 06/16/17 05:50 06:00 06:05 Temperature Pulse Rate 72 108 Respiratory Rate Blood Pressure 122/100 112/85 (mmHg) O2 Sat by Pulse 100 100 Oximetry 06/16/17 06/16/17 06/16/17 06:20 06:36 06:39 Temperature Pulse Rate 95 115 Respiratory Rate Blood Pressure 119/77 85/61 109/81 (mmHg) O2 Sat by Pulse 95 100 Oximetry 06/16/17 06/16/17 06/16/17 07:00 07:10 07:15 Temperature Pulse Rate 97 92 Respiratory Rate Blood Pressure 125/73 109/73 93/79 (mmHg) O2 Sat by Pulse 97 90 Oximetry 06/16/17 06/16/17 07:20 07:22 Temperature Pulse Rate 114 Respiratory Rate Blood Pressure 115/78 100/74 (mmHg) O2 Sat by Pulse 99 Oximetry Oxygen Devices in Use Now: Nasal Cannula Appearance: Older female, sitting on edge of bed, eating breakfast, in NAD Eyes: No Scleral Icterus, PERRLA Ears/Nose/Mouth/Throat: Clear Oropharnyx Neck: NL Appearance and Movements; NL JVP Respiratory: Symmetrical Chest Expansion and Respiratory Effort, - - diminished , mild expiratory wheezing in bases Cardiovascular: No Edema, - - irreg irreg rate/rhythm, tachycarid Abdominal: NL Sounds; No Tenderness; No Distention Extremities: No Clubbing, Cyanosis Neurological: Alert and Oriented x 3, NL Muscle Strength and Tone Lines/Tubes/Other Access: Clean, Dry and Intact Peripheral IV Nutrition: Taking PO's Result Diagrams: 06/16/17 07:05 06/16/17 07:05 Additional Lab and Data: Lab Results 06/15/17 06/15/17 06/15/17 Range/Units 22:20 22:20 22:20 WBC (3.5-10.8) 10^3/ul RBC (4.0-5.4) 10^6/ul Hgb (12.0-16.0) g/dl Hct (35-47) % MCV (80-97) fL MCH (27-31) pg MCHC (31-36) g/dl RDW (10.5-15) % Plt Count (150-450) 10^3/ul MPV (7.4-10.4) um3 Neut % (Auto) (38-83) % Lymph % (Auto) (25-47) % [place] % (Auto) (1-9) % Eos % (Auto) (0-6) % Baso % (Auto) (0-2) % Absolute Neuts (auto) (1.5-7.7) 10^3/ul Absolute Lymphs (auto) (1.0-4.8) 10^3/ul Absolute Monos (auto) (0-0.8) 10^3/ul Absolute Eos (auto) (0-0.6) 10^3/ul Absolute Basos (auto) (0-0.2) 10^3/ul Absolute Nucleated RBC 10^3/ul Nucleated RBC % INR (Anticoag Therapy) 1.06 H (0.77-1.02) APTT 29.0 (26.0-36.3) seconds D-Dimer, Quantitative 605 H (Less Than 230) ng/mL Sodium 140 (133-145) mmol/L Potassium 4.1 (3.5-5.0) mmol/L Chloride 101 (101-111) mmol/L Carbon Dioxide 34 H (22-32) mmol/L Anion Gap 5 (2-11) mmol/L BUN 28 H (6-24) mg/dL Creatinine 1.51 H (0.51-0.95) mg/dL Est GFR ( Amer) 45.1 (>60) Est GFR (Non-Af Amer) 35.0 (>60) BUN/Creatinine Ratio 18.5 (8-20) Glucose 104 H (70-100) mg/dL Lactic Acid (0.5-2.0) mmol/L Calcium 8.7 (8.6-10.3) mg/dL Total Bilirubin 0.40 (0.2-1.0) mg/dL AST 7 L (13-39) U/L ALT 8 (7-52) U/L Alkaline Phosphatase 76 (34-104) U/L Total Creatine Kinase 37 (10-223) U/L CK-MB (CK-2) 1.1 (0.6-6.3) ng/mL Troponin I 0.02 (<0.04) ng/mL C-Reactive Protein 93.11 H (< 5.00) mg/L B-Natriuretic Peptide 368 H ( - 100) pg/mL Total Protein 6.6 (6.4-8.9) g/dL Albumin 3.3 (3.2-5.2) g/dL Globulin 3.3 (2-4) g/dL Albumin/Globulin Ratio 1.0 (1-3) Influenza A (Rapid) (Negative) Influenza B (Rapid) (Negative) 06/15/17 06/15/17 06/15/17 Range/Units 22:20 22:20 22:42 WBC 6.5 (3.5-10.8) 10^3/ul RBC 4.09 (4.0-5.4) 10^6/ul Hgb 10.8 L (12.0-16.0) g/dl Hct 33 L (35-47) % MCV 82 (80-97) fL MCH 26 L (27-31) pg MCHC 32 (31-36) g/dl RDW 19 H (10.5-15) % Plt Count 205 (150-450) 10^3/ul MPV 9 (7.4-10.4) um3 Neut % (Auto) 74.3 (38-83) % Lymph % (Auto) 16.4 L (25-47) % [place] % (Auto) 7.7 (1-9) % Eos % (Auto) 0.9 (0-6) % Baso % (Auto) 0.7 (0-2) % Absolute Neuts (auto) 4.8 (1.5-7.7) 10^3/ul Absolute Lymphs (auto) 1.1 (1.0-4.8) 10^3/ul Absolute Monos (auto) 0.5 (0-0.8) 10^3/ul Absolute Eos (auto) 0.1 (0-0.6) 10^3/ul Absolute Basos (auto) 0 (0-0.2) 10^3/ul Absolute Nucleated RBC 0.12 10^3/ul Nucleated RBC % 1.8 INR (Anticoag Therapy) (0.77-1.02) APTT (26.0-36.3) seconds D-Dimer, Quantitative (Less Than 230) ng/mL Sodium (133-145) mmol/L Potassium (3.5-5.0) mmol/L Chloride (101-111) mmol/L Carbon Dioxide (22-32) mmol/L Anion Gap (2-11) mmol/L BUN (6-24) mg/dL Creatinine (0.51-0.95) mg/dL Est GFR ( Amer) (>60) Est GFR (Non-Af Amer) (>60) BUN/Creatinine Ratio (8-20) Glucose (70-100) mg/dL Lactic Acid 0.8 (0.5-2.0) mmol/L Calcium (8.6-10.3) mg/dL Total Bilirubin (0.2-1.0) mg/dL AST (13-39) U/L ALT (7-52) U/L Alkaline Phosphatase (34-104) U/L Total Creatine Kinase (10-223) U/L CK-MB (CK-2) (0.6-6.3) ng/mL Troponin I (<0.04) ng/mL C-Reactive Protein (< 5.00) mg/L B-Natriuretic Peptide ( - 100) pg/mL Total Protein (6.4-8.9) g/dL Albumin (3.2-5.2) g/dL Globulin (2-4) g/dL Albumin/Globulin Ratio (1-3) Influenza A (Rapid) Negative (Negative) Influenza B (Rapid) Negative (Negative) Assess/Plan/Problems-Billing Assessment: Ms. Robledo is a 61 yo female with a PMH of afib on Eliquis, systolic/diastolic HF, HTN, DM2, FRANCIS, COPD, lymphoma, CKD 3, and depression and anxiety who presented to the ED with gradually worsening SOB for 2 weeks; CTA shows bilateral pulmonary emboli. - Patient Problems (1) Bilateral pulmonary embolism Code(s): I26.99 - OTHER PULMONARY EMBOLISM WITHOUT ACUTE COR PULMONALE Comment : CTA shows moderately large burden of bilateral acute pulmonary emboli Patient on apixaban previously for afib; patient adamant that she has not missed doses and takes as prescribed. Continue heparin gtt. Discussed case with Dr. Lieberman; appreciate hematology consult and recommendations. (2) Atrial fibrillation with RVR Code(s): I48.91 - UNSPECIFIED ATRIAL FIBRILLATION Comment: On diltiazem gtt but with hypotension Will discontinue and resume home medications of amiodarone Start beta regina; consider digoxin if rate not controlled (3) COPD (chronic obstructive pulmonary disease) Code(s): J44.9 - CHRONIC OBSTRUCTIVE PULMONARY DISEASE, UNSPECIFIED Comment: Not in acute exacerbation PRN albuterol (4) Systolic and diastolic CHF, chronic Code(s): I50.42 - CHRONIC COMBINED SYSTOLIC AND DIASTOLIC HRT FAIL Comment: Previous EF 20-25% Now with bilateral PEs Will check echocardiogram Continue beta regina and home meds once confirmed Daily weights, I/O (5) CKD (chronic kidney disease), stage III Code(s): N18.3 - CHRONIC KIDNEY DISEASE, STAGE 3 (MODERATE) Comment: Mildly above baseline Creatinine baseline 1.0-1.3 Continue to monitor Avoid nephrotoxic medication (6) Hypertension Code(s): I10 - ESSENTIAL (PRIMARY) HYPERTENSION Comment: Currently hypotensive secondary to diltiazem gtt Continue home meds once confirmed and pressures recover (7) FRANCIS (obstructive sleep apnea) Code(s): G47.33 - OBSTRUCTIVE SLEEP APNEA (ADULT) (PEDIATRIC) Comment: Home CPAP out of use for past few weeks as it is not working Offer hospital CPAP Will need f/u with PCP to resolve home CPAP issue (8) Dyslipidemia Code(s): E78.5 - HYPERLIPIDEMIA, UNSPECIFIED Comment: Continue statin. (9) Morbid obesity Code(s): E66.01 - MORBID (SEVERE) OBESITY DUE TO EXCESS CALORIES Comment: BMI 56 Follows with [facility] for medically supervised weight loss Status and Disposition: Inpatient admission. Anticipate discharge to home when medically stable.
[2017-06-16] MEDS: Docusate CAP* 100 MG PO SCH ×3 (09:42→23:18)
[2017-06-16] MEDS: Heparin DRIP 25,000 UNITS(*) 25,000 UNITS/500 ML BAG IVPB SCH (12:13)
[2017-06-16] MEDS: Morphine INJ* 4 MG/ML 1 ML CARPUJECT IV PRN ×2 (15:27→19:51)
[2017-06-16] MEDS ORDERED: Metoprolol Tartrate TAB* 25 MG PO ONE (15:33)
[2017-06-16] MEDS ORDERED: Nicotine Inhaler* 10 MG AMP INH PRN (19:51)
[2017-06-16] MEDS ORDERED: Albuterol HFA INHALER* 8 gm MDI INH PRN (19:51)
[2017-06-16] MEDS: Mometasone/Formoter 100/5 MDI INH SCH (20:43)
[2017-06-16] MEDS: Tiotropium CAP.INH* CAP.INH/18 MCG (USE ORDER SET !) INH SCH (20:51)
[2017-06-16] MEDS ORDERED: Spiriva Inhaler DEVICE* 1 EACH DEVICE INH ONE (21:00)
[2017-06-16] MEDS: QUEtiapine TAB* 100 MG PO SCH (23:17)
[2017-06-16] MEDS: Metoprolol Tartrate TAB* 25 MG PO SCH (23:17)
[2017-06-16] MEDS: QUEtiapine TAB* 300 MG PO SCH (23:18)
[2017-06-16] MEDS: Atorvastatin* 20 MG TAB PO SCH (23:19)
[2017-06-16] MEDS: traZODone TAB* 100 MG PO SCH (23:19)
[2017-06-17 01:48] LABS: Urine Appearance Cloudy; Urine Blood Negative (Negative); Urine Color Yellow; Urine Ketones Negative (Negative); Urine Protein 1+(30 mg/dL) (Negative); Urine Specific Gravity 1.029 (1.010-1.030); Urine Urobilinogen Negative (Negative)
[2017-06-17] MEDS: Heparin DRIP 25,000 UNITS(*) 25,000 UNITS/500 ML BAG IVPB SCH ×2 (02:22→16:31)
[2017-06-17] MEDS: Metoprolol Tartrate TAB* 25 MG PO SCH ×3 (02:23→13:32)
[2017-06-17 03:55] LABS: ABS Basophils 0 10^3/ul (0-0.2); ABS Eosinophils 0.1 10^3/ul (0-0.6); ABS Lymphocytes 0.8 10^3/ul (1.0-4.8); ABS Monocytes 0.4 10^3/ul (0-0.8); ABS Neutrophils 4.6 10^3/ul (1.5-7.7); ABS Nucleated RBC 0.06 10^3/ul; Eosinophil % 1.6 % (0-6); Hematocrit 29 % (35-47); Hemoglobin 9.1 g/dl (12.0-16.0); Lymphocyte % 12.8 % (25-47); Mean Corpuscular HGB Conc 31 g/dl (31-36); Mean Corpuscular Hemoglobin 26 pg (27-31); Mean Corpuscular Volume 84 fL (80-97); Mean Platelet Volume 9 um3 (7.4-10.4); Platelet Count 175 10^3/ul (150-450); Red Blood Count 3.44 10^6/ul (4.0-5.4); Red Cell Distribution Width 19 % (10.5-15); White Blood Count 5.9 10^3/ul (3.5-10.8)
[2017-06-17 04:08] LABS: EGFR Non-African American 32.1 (>60)
[2017-06-17] MEDS: Heparin VIAL(*) 5000 UNITS/ML VIAL (FIVE THOUSAND) IV SCH (04:48)
[2017-06-17] MEDS: Benzonatate CAP* 100 MG PO PRN ×2 (05:49→16:31)
[2017-06-17] MEDS: Omeprazole CAP* 20 MG PO SCH (07:41)
[2017-06-17] MEDS: Lisinopril TAB* 10 MG PO SCH (08:20)
[2017-06-17] MEDS: Ferrous Sulfate TAB* 325 MG PO SCH (08:20)
[2017-06-17] MEDS: Potassium Chlor TAB* 20 MEQ TAB.ER PO SCH (08:20)
[2017-06-17] MEDS: Docusate CAP* 100 MG PO SCH ×2 (08:20→21:43)
[2017-06-17] MEDS: Atorvastatin* 20 MG TAB PO SCH (08:20)
[2017-06-17] MEDS: Spironolactone TAB* 25 MG PO SCH (08:20)
[2017-06-17] MEDS: Nicotine PATCH 14 MG/24 HR* PATCH TRANSDERM SCH (08:20)
[2017-06-17] MEDS: Multivitamins/Minerals TAB PO SCH (08:20)
[2017-06-17] MEDS: Mometasone/Formoter 100/5 MDI INH SCH ×2 (08:21→20:54)
[2017-06-17] MEDS: Tiotropium CAP.INH* CAP.INH/18 MCG (USE ORDER SET !) INH SCH (08:21)
[2017-06-17 08:47] LABS: ABS Basophils 0 10^3/ul (0-0.2); ABS Eosinophils 0.1 10^3/ul (0-0.6); ABS Lymphocytes 0.8 10^3/ul (1.0-4.8); ABS Monocytes 0.6 10^3/ul (0-0.8); ABS Neutrophils 4.8 10^3/ul (1.5-7.7); ABS Nucleated RBC 0.05 10^3/ul; Eosinophil % 1.8 % (0-6); Hematocrit 32 % (35-47); Lymphocyte % 12.8 % (25-47); Mean Corpuscular HGB Conc 31 g/dl (31-36); Mean Corpuscular Hemoglobin 26 pg (27-31); Mean Corpuscular Volume 83 fL (80-97); Mean Platelet Volume 9 um3 (7.4-10.4); Nucleated Red Blood Cells % 0.8; Platelet Count 181 10^3/ul (150-450); Red Blood Count 3.84 10^6/ul (4.0-5.4); Red Cell Distribution Width 19 % (10.5-15); White Blood Count 6.3 10^3/ul (3.5-10.8)
[2017-06-17] MEDS ORDERED: Torsemide TAB* 20 MG PO SCH (09:00)
--- NOTE | 2017-06-17 09:19 | PN ---
Progress Note - Progress Note Date of Service: 06/17/17 SOAP: HPI: asked to see patient for new bilateral PE despite eloquis patient well known to our service. history of mantle cell lymphoma treated with bendamustine/rituxan in 2011. She has been disease free since then, though did present for routine fu in May with Dr. Jc at which time she had a hard right supraclavicular LN. He sent her for imaging which did not show this clearly and did not have any clear evidence of recurrence. She was due to follow up with him 4 weeks to reassess node. She also has CHF w an EF of 35% and afib and is on eloquis. she reports strict compliance with this but comes in now with progressive SOB and is found to have bilateral PEs. She is currently on a heparin drip. She reports her last colonoscopy and mammogram were last year at [facility]. Subjective: -still feeling quite SOB despite heparin drip. can not move a lot without fatigue/sob. +cough and pleuritic CP with coughing Objective: Vital Signs Temp Pulse Resp BP Pulse Ox 97.8 F 114 20 107/76 94 06/17/17 07:57 06/17/17 08:21 06/17/17 08:25 06/17/17 07:57 06/17/17 08:25 morbidly obese hard, mobile 2 cm right supraclav node no nodes on left or axilla tachy distant bs, clear obese nt +Bs 1+ LE edema A+Ox 3 grossly nonfocal Laboratory Results - last 24 hr 06/16/17 06/16/17 06/16/17 01:30 10:53 19:03 WBC RBC Hgb Hct MCV MCH MCHC RDW Plt Count MPV Neut % (Auto) Lymph % (Auto) [place] % (Auto) Eos % (Auto) Baso % (Auto) Absolute Neuts (auto) Absolute Lymphs (auto) Absolute Monos (auto) Absolute Eos (auto) Absolute Basos (auto) Absolute Nucleated RBC Nucleated RBC % APTT 56.7 H 42.6 H Sodium Potassium Chloride Carbon Dioxide Anion Gap BUN Creatinine Est GFR ( Amer) Est GFR (Non-Af Amer) BUN/Creatinine Ratio Glucose Calcium Urine Color Yellow Urine Appearance Cloudy Urine pH 5.0 Ur Specific [place] 1.029 Urine Protein 1+(30 mg/dl) H Urine Ketones Negative Urine Blood Negative Urine Nitrate Negative Urine Bilirubin Negative Urine Urobilinogen Negative Ur Leukocyte Esterase 1+ H Urine WBC (Auto) 2+(11-20/hpf) H Urine RBC (Auto) Trace(0-2/hpf) Ur Squamous Epith Cells Present H Urine Bacteria Absent Hyaline Casts Present H Urine Glucose Negative 06/17/17 06/17/17 06/17/17 03:45 03:45 03:45 WBC 5.9 RBC 3.44 L Hgb 9.1 L Hct 29 L MCV 84 MCH 26 L MCHC 31 RDW 19 H Plt Count 175 MPV 9 Neut % (Auto) 77.5 Lymph % (Auto) 12.8 L [place] % (Auto) 7.6 Eos % (Auto) 1.6 Baso % (Auto) 0.5 Absolute Neuts (auto) 4.6 Absolute Lymphs (auto) 0.8 L Absolute Monos (auto) 0.4 Absolute Eos (auto) 0.1 Absolute Basos (auto) 0 Absolute Nucleated RBC 0.06 Nucleated RBC % 1.0 APTT 45.8 H Sodium 136 Potassium TNP Chloride 101 Carbon Dioxide 28 Anion Gap 7 BUN 33 H Creatinine 1.63 H Est GFR ( Amer) 41.2 Est GFR (Non-Af Amer) 32.1 BUN/Creatinine Ratio 20.2 H Glucose 122 H Calcium 8.2 L Urine Color Urine Appearance Urine pH Ur Specific [place] Urine Protein Urine Ketones Urine Blood Urine Nitrate Urine Bilirubin Urine Urobilinogen Ur Leukocyte Esterase Urine WBC (Auto) Urine RBC (Auto) Ur Squamous Epith Cells Urine Bacteria Hyaline Casts Urine Glucose 06/17/17 06/17/17 08:34 08:34 WBC 6.3 RBC 3.84 L Hgb 10.0 L Hct 32 L MCV 83 MCH 26 L MCHC 31 RDW 19 H Plt Count 181 MPV 9 Neut % (Auto) 75.0 Lymph % (Auto) 12.8 L [place] % (Auto) 9.8 H Eos % (Auto) 1.8 Baso % (Auto) 0.6 Absolute Neuts (auto) 4.8 Absolute Lymphs (auto) 0.8 L Absolute Monos (auto) 0.6 Absolute Eos (auto) 0.1 Absolute Basos (auto) 0 Absolute Nucleated RBC 0.05 Nucleated RBC % 0.8 APTT Sodium Potassium 4.4 Chloride Carbon Dioxide Anion Gap BUN 35 H Creatinine Est GFR ( Amer) Est GFR (Non-Af Amer) BUN/Creatinine Ratio Glucose Calcium Urine Color Urine Appearance Urine pH Ur Specific [place] Urine Protein Urine Ketones Urine Blood Urine Nitrate Urine Bilirubin Urine Urobilinogen Ur Leukocyte Esterase Urine WBC (Auto) Urine RBC (Auto) Ur Squamous Epith Cells Urine Bacteria Hyaline Casts Urine Glucose Acetaminophen (Tylenol Tab*) 650 mg PO Q6H PRN PRN Reason: FEVER/PAIN Albuterol (Ventolin 2.5 Mg/3 Ml Neb.Lois*) 2.5 mg INH Q2H PRN PRN Reason: SOB/WHEEZING Albuterol (Ventolin Hfa Inhaler*) 2 puff INH Q4H PRN PRN Reason: SOB/WHEEZING Last Admin: 06/17/17 08:24 Dose: 2 puff Alprazolam (Xanax Tab*) 0.5 mg PO TID PRN PRN Reason: ANXIETY Atorvastatin Calcium (Lipitor*) 20 mg PO DAILY [facility] Last Admin: 06/17/17 08:20 Dose: 20 mg Benzonatate (Tessalon Cap*) 200 mg PO Q6H PRN PRN Reason: COUGH Last Admin: 06/17/17 05:49 Dose: 200 mg Docusate Sodium (Colace Cap*) 100 mg PO BID [facility] Last Admin: 06/17/17 08:20 Dose: 100 mg Ferrous Sulfate (Ferrous Sulfate Tab*) 325 mg PO DAILY [facility] Last Admin: 06/17/17 08:20 Dose: 325 mg Furosemide (Lasix Iv*) 40 mg IV SLOW PU 0900,1700 [facility] Heparin Sodium (Porcine) (Heparin Vial(*)) 0 units IV .PER PROTOCOL LIYAH PRN Reason: Protocol Last Admin: 06/17/17 04:48 Dose: 3,700 units Heparin Sodium/Dextrose (Heparin Drip 25,000 Units(*)) 25,000 units in 500 mls @ 0 mls/hr IVPB .PER RATE [facility]; Per Protocol PRN Reason: Protocol Last Admin: 06/17/17 02:22 Dose: 36 mls/hr Lisinopril (Prinivil Tab*) 20 mg PO DAILY [facility] Last Admin: 06/17/17 08:20 Dose: 20 mg Melatonin (Melatonin (Nf)) 3 mg PO BEDTIME PRN; Protocol PRN Reason: Sleep Metoprolol Tartrate (Lopressor Tab*) 25 mg PO Q6H [facility] Last Admin: 06/17/17 08:19 Dose: 25 mg Mometasone Furoate/Formoterol Fumar (Dulera 100/5 Mdi*) 1 puff INH BID [facility] Last Admin: 06/17/17 08:21 Dose: 1 puff Morphine Sulfate (Morphine Inj (Syringe)*) 4 mg IV Q4H PRN PRN Reason: PAIN Last Admin: 06/16/17 19:51 Dose: 4 mg Multivitamins/Minerals (Theragran/Minerals Tab*) 1 tab PO DAILY [facility] Last Admin: 06/17/17 08:20 Dose: 1 tab Nicotine (Nicotine Inhaler*) 10 mg INH Q2H PRN PRN Reason: CRAVINGS Nicotine (Nicotine Patch 14 Mg/24 Hr*) 1 patch TRANSDERM DAILY [facility] Last Admin: 06/17/17 08:20 Dose: 1 patch Omeprazole (Prilosec Cap*) 20 mg PO DAILY@0730 [facility] Last Admin: 06/17/17 07:41 Dose: 20 mg Ondansetron HCl (Zofran Inj*) 4 mg IV Q6H PRN PRN Reason: NAUSEA Pharmacy Profile Note (Nicotine Patch Removal Note*) 1 note PATCH OFF 2100 [facility] Potassium Chloride (Klor Con Er Tab*) 20 meq PO DAILY WITH MEAL [facility] Last Admin: 06/17/17 08:20 Dose: 20 meq Quetiapine Fumarate (Seroquel Tab*) 600 mg PO BEDTIME [facility] Last Admin: 06/16/17 23:18 Dose: 600 mg Quetiapine Fumarate (Seroquel Tab*) 200 mg PO BEDTIME [facility] Last Admin: 06/16/17 23:17 Dose: 200 mg Spironolactone (Aldactone Tab*) 100 mg PO DAILY [facility] Last Admin: 06/17/17 08:20 Dose: 100 mg Tiotropium [place] (Spiriva Cap.Inh*) 1 cap INH DAILY [facility] Last Admin: 06/17/17 08:21 Dose: 1 cap Torsemide (Demadex*) 20 mg PO 0900,1800 [facility] Tramadol HCl (Ultram*) 50 mg PO Q6H PRN PRN Reason: PAIN Trazodone HCl (Desyrel Tab*) 100 mg PO BEDTIME [facility] Last Admin: 06/16/17 23:19 Dose: 100 mg Assessment: 61 yo morbidly obese female on eloquis for afib w a h/o mantle cell lymphoma presenting with bilateral PEs despite eloquis. Exam concerning for malignancy given hard right supraclav node. I have taken the liberty of calling Dr. Gonzalez to get a FNA of her right supraclav node (message left). We can hold her heparin drip shortly if needed for this. 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 I would hold off on starting this pending work up of this supraclav node and potential need for further procedures. In terms of her anemia, it is worsening , and likely related to her renal failure, however would check iron studies and stool guaiac. We will continue to follow with you closely.
[2017-06-17] MEDS: Furosemide IV* 10 MG/ML VIAL (40 MG) IV SLOW PU SCH ×2 (09:24→15:49)
--- NOTE | 2017-06-17 12:11 | PN ---
Subjective Date of Service: 06/17/17 Interval History: Patient seen and examined at bedside. She is laying at 45 degree angle in bed and sleeping soundly; arouses to voice and tactile stimuli. She still endorses pleuritic CP with deep inspiration and with coughing. Patient still with dyspnea and overall fatigue. She reports minimal improvement. Denies fever/ chills, n/v, dysuria. Tele: Afib, rate controlled 100s Family History: Unchanged from Admission Social History: Unchanged from Admission Past Medical History: Unchanged from Admission Objective Active Medications: Acetaminophen (Tylenol Tab*) 650 mg PO Q6H PRN PRN Reason: FEVER/PAIN Albuterol (Ventolin 2.5 Mg/3 Ml Neb.Lois*) 2.5 mg INH Q2H PRN PRN Reason: SOB/WHEEZING Albuterol (Ventolin Hfa Inhaler*) 2 puff INH Q4H PRN PRN Reason: SOB/WHEEZING Last Admin: 06/17/17 08:24 Dose: 2 puff Alprazolam (Xanax Tab*) 0.5 mg PO TID PRN PRN Reason: ANXIETY Atorvastatin Calcium (Lipitor*) 20 mg PO DAILY [facility] Last Admin: 06/17/17 08:20 Dose: 20 mg Benzonatate (Tessalon Cap*) 200 mg PO Q6H PRN PRN Reason: COUGH Last Admin: 06/17/17 05:49 Dose: 200 mg Docusate Sodium (Colace Cap*) 100 mg PO BID [facility] Last Admin: 06/17/17 08:20 Dose: 100 mg Ferrous Sulfate (Ferrous Sulfate Tab*) 325 mg PO DAILY [facility] Last Admin: 06/17/17 08:20 Dose: 325 mg Furosemide (Lasix Iv*) 40 mg IV SLOW PU 0900,1700 [facility] Last Admin: 06/17/17 09:24 Dose: 40 mg Heparin Sodium (Porcine) (Heparin Vial(*)) 0 units IV .PER PROTOCOL [facility] PRN Reason: Protocol Last Admin: 06/17/17 04:48 Dose: 3,700 units Heparin Sodium/Dextrose (Heparin Drip 25,000 Units(*)) 25,000 units in 500 mls @ 0 mls/hr IVPB .PER RATE [facility]; Per Protocol PRN Reason: Protocol Last Admin: 06/17/17 02:22 Dose: 36 mls/hr Lisinopril (Prinivil Tab*) 20 mg PO DAILY [facility] Last Admin: 06/17/17 08:20 Dose: 20 mg Melatonin (Melatonin (Nf)) 3 mg PO BEDTIME PRN; Protocol PRN Reason: Sleep Metoprolol Tartrate (Lopressor Tab*) 25 mg PO Q6H [facility] Last Admin: 06/17/17 08:19 Dose: 25 mg Mometasone Furoate/Formoterol Fumar (Dulera 100/5 Mdi*) 1 puff INH BID [facility] Last Admin: 06/17/17 08:21 Dose: 1 puff Morphine Sulfate (Morphine Inj (Syringe)*) 4 mg IV Q4H PRN PRN Reason: PAIN Last Admin: 06/16/17 19:51 Dose: 4 mg Multivitamins/Minerals (Theragran/Minerals Tab*) 1 tab PO DAILY [facility] Last Admin: 06/17/17 08:20 Dose: 1 tab Nicotine (Nicotine Inhaler*) 10 mg INH Q2H PRN PRN Reason: CRAVINGS Nicotine (Nicotine Patch 14 Mg/24 Hr*) 1 patch TRANSDERM DAILY [facility] Last Admin: 06/17/17 08:20 Dose: 1 patch Omeprazole (Prilosec Cap*) 20 mg PO DAILY@0730 [facility] Last Admin: 06/17/17 07:41 Dose: 20 mg Ondansetron HCl (Zofran Inj*) 4 mg IV Q6H PRN PRN Reason: NAUSEA Pharmacy Profile Note (Nicotine Patch Removal Note*) 1 note PATCH OFF 2100 [facility] Potassium Chloride (Klor Con Er Tab*) 20 meq PO DAILY WITH MEAL [facility] Last Admin: 06/17/17 08:20 Dose: 20 meq Quetiapine Fumarate (Seroquel Tab*) 600 mg PO BEDTIME [facility] Last Admin: 06/16/17 23:18 Dose: 600 mg Quetiapine Fumarate (Seroquel Tab*) 200 mg PO BEDTIME [facility] Last Admin: 06/16/17 23:17 Dose: 200 mg Spironolactone (Aldactone Tab*) 100 mg PO DAILY [facility] Last Admin: 06/17/17 08:20 Dose: 100 mg Tiotropium [place] (Spiriva Cap.Inh*) 1 cap INH DAILY [facility] Last Admin: 06/17/17 08:21 Dose: 1 cap Torsemide (Demadex*) 20 mg PO 0900,1800 [facility] Tramadol HCl (Ultram*) 50 mg PO Q6H PRN PRN Reason: PAIN Trazodone HCl (Desyrel Tab*) 100 mg PO BEDTIME [facility] Last Admin: 06/16/17 23:19 Dose: 100 mg Vital Signs - 8 hr 06/17/17 06/17/17 06/17/17 04:37 07:57 08:00 Temperature 98.2 F 97.8 F Pulse Rate 116 108 Respiratory 20 22 20 Rate Blood Pressure 124/71 107/76 (mmHg) O2 Sat by Pulse 91 94 Oximetry 06/17/17 06/17/17 06/17/17 08:21 08:25 11:48 Temperature 97.8 F Pulse Rate 114 126 Respiratory 20 28 Rate Blood Pressure 105/33 (mmHg) O2 Sat by Pulse 94 99 Oximetry Oxygen Devices in Use Now: Nasal Cannula Appearance: Female patient, lying in bed, sleeping but arouses appropriately to stimuli Eyes: No Scleral Icterus Ears/Nose/Mouth/Throat: Clear Oropharnyx, Mucous Membranes Moist Neck: NL Appearance and Movements; NL JVP Respiratory: Symmetrical Chest Expansion and Respiratory Effort, Clear to Auscultation - diminished Cardiovascular: NL Sounds; No Murmurs; No JVD, - - irregularly irregular Abdominal: NL Sounds; No Tenderness; No Distention Lymphatic: - - right supraclavicular node palpated Extremities: No Clubbing, Cyanosis Neurological: Alert and Oriented x 3, NL Muscle Strength and Tone Lines/Tubes/Other Access: Clean, Dry and Intact Peripheral IV Nutrition: Taking PO's Result Diagrams: 06/17/17 08:34 06/17/17 08:34 Additional Lab and Data: Lab Results 06/15/17 06/15/17 06/15/17 Range/Units 22:20 22:20 22:20 WBC (3.5-10.8) 10^3/ul RBC (4.0-5.4) 10^6/ul Hgb (12.0-16.0) g/dl Hct (35-47) % MCV (80-97) fL MCH (27-31) pg MCHC (31-36) g/dl RDW (10.5-15) % Plt Count (150-450) 10^3/ul MPV (7.4-10.4) um3 Neut % (Auto) (38-83) % Lymph % (Auto) (25-47) % [place] % (Auto) (1-9) % Eos % (Auto) (0-6) % Baso % (Auto) (0-2) % Absolute Neuts (auto) (1.5-7.7) 10^3/ul Absolute Lymphs (auto) (1.0-4.8) 10^3/ul Absolute Monos (auto) (0-0.8) 10^3/ul Absolute Eos (auto) (0-0.6) 10^3/ul Absolute Basos (auto) (0-0.2) 10^3/ul Absolute Nucleated RBC 10^3/ul Nucleated RBC % INR (Anticoag Therapy) 1.06 H (0.77-1.02) APTT 29.0 (26.0-36.3) seconds D-Dimer, Quantitative 605 H (Less Than 230) ng/mL Sodium 140 (133-145) mmol/L Potassium 4.1 (3.5-5.0) mmol/L Chloride 101 (101-111) mmol/L Carbon Dioxide 34 H (22-32) mmol/L Anion Gap 5 (2-11) mmol/L BUN 28 H (6-24) mg/dL Creatinine 1.51 H (0.51-0.95) mg/dL Est GFR ( Amer) 45.1 (>60) Est GFR (Non-Af Amer) 35.0 (>60) BUN/Creatinine Ratio 18.5 (8-20) Glucose 104 H (70-100) mg/dL Lactic Acid (0.5-2.0) mmol/L Calcium 8.7 (8.6-10.3) mg/dL Total Bilirubin 0.40 (0.2-1.0) mg/dL AST 7 L (13-39) U/L ALT 8 (7-52) U/L Alkaline Phosphatase 76 (34-104) U/L Total Creatine Kinase 37 (10-223) U/L CK-MB (CK-2) 1.1 (0.6-6.3) ng/mL Troponin I 0.02 (<0.04) ng/mL C-Reactive Protein 93.11 H (< 5.00) mg/L B-Natriuretic Peptide 368 H ( - 100) pg/mL Total Protein 6.6 (6.4-8.9) g/dL Albumin 3.3 (3.2-5.2) g/dL Globulin 3.3 (2-4) g/dL Albumin/Globulin Ratio 1.0 (1-3) Influenza A (Rapid) (Negative) Influenza B (Rapid) (Negative) 06/15/17 06/15/17 06/15/17 Range/Units 22:20 22:20 22:42 WBC 6.5 (3.5-10.8) 10^3/ul RBC 4.09 (4.0-5.4) 10^6/ul Hgb 10.8 L (12.0-16.0) g/dl Hct 33 L (35-47) % MCV 82 (80-97) fL MCH 26 L (27-31) pg MCHC 32 (31-36) g/dl RDW 19 H (10.5-15) % Plt Count 205 (150-450) 10^3/ul MPV 9 (7.4-10.4) um3 Neut % (Auto) 74.3 (38-83) % Lymph % (Auto) 16.4 L (25-47) % [place] % (Auto) 7.7 (1-9) % Eos % (Auto) 0.9 (0-6) % Baso % (Auto) 0.7 (0-2) % Absolute Neuts (auto) 4.8 (1.5-7.7) 10^3/ul Absolute Lymphs (auto) 1.1 (1.0-4.8) 10^3/ul Absolute Monos (auto) 0.5 (0-0.8) 10^3/ul Absolute Eos (auto) 0.1 (0-0.6) 10^3/ul Absolute Basos (auto) 0 (0-0.2) 10^3/ul Absolute Nucleated RBC 0.12 10^3/ul Nucleated RBC % 1.8 INR (Anticoag Therapy) (0.77-1.02) APTT (26.0-36.3) seconds D-Dimer, Quantitative (Less Than 230) ng/mL Sodium (133-145) mmol/L Potassium (3.5-5.0) mmol/L Chloride (101-111) mmol/L Carbon Dioxide (22-32) mmol/L Anion Gap (2-11) mmol/L BUN (6-24) mg/dL Creatinine (0.51-0.95) mg/dL Est GFR ( Amer) (>60) Est GFR (Non-Af Amer) (>60) BUN/Creatinine Ratio (8-20) Glucose (70-100) mg/dL Lactic Acid 0.8 (0.5-2.0) mmol/L Calcium (8.6-10.3) mg/dL Total Bilirubin (0.2-1.0) mg/dL AST (13-39) U/L ALT (7-52) U/L Alkaline Phosphatase (34-104) U/L Total Creatine Kinase (10-223) U/L CK-MB (CK-2) (0.6-6.3) ng/mL Troponin I (<0.04) ng/mL C-Reactive Protein (< 5.00) mg/L B-Natriuretic Peptide ( - 100) pg/mL Total Protein (6.4-8.9) g/dL Albumin (3.2-5.2) g/dL Globulin (2-4) g/dL Albumin/Globulin Ratio (1-3) Influenza A (Rapid) Negative (Negative) Influenza B (Rapid) Negative (Negative) Assess/Plan/Problems-Billing Assessment: Ms. Robledo is a 61 yo female with a PMH of afib on Eliquis, systolic/diastolic HF, HTN, DM2, FRANCIS, COPD, lymphoma, CKD 3, and depression and anxiety who presented to the ED with gradually worsening SOB for 2 weeks; CTA shows bilateral pulmonary emboli. - Patient Problems (1) Pulmonary embolism with acute cor pulmonale Code(s): I26.09 - OTHER PULMONARY EMBOLISM WITH ACUTE COR PULMONALE Comment: CTA shows moderately large burden of bilateral acute pulmonary emboli Patient with Eliquis failure, cont heparin gtt at this time Appreciate heme/onc consult Echo shows EF 35-40% and right ventricular function is mildly to moderately reduced with RV moderately dilated. Continue O2, careful monitoring of fluid status (2) History of lymphoma Code(s): Z85.79 - PRSNL HX OF MALIG NEOPLM OF LYMPHOID, HEMATPOETC & REL TISS Comment: Hx of mantle cell lymphoma Appreciate heme/onc consult With concern for malignancy, given Eliquis failure and hard, right supraclavicular node Plan for FNA of node (3) Atrial fibrillation with RVR Code(s): I48.91 - UNSPECIFIED ATRIAL FIBRILLATION Comment: Now rate controlled Continue amidoarone; will switch from metoprolol to home carvedilol (4) COPD (chronic obstructive pulmonary disease) Code(s): J44.9 - CHRONIC OBSTRUCTIVE PULMONARY DISEASE, UNSPECIFIED Comment: Not in acute exacerbation PRN albuterol (5) Systolic and diastolic CHF, chronic Code(s): I50.42 - CHRONIC COMBINED SYSTOLIC AND DIASTOLIC HRT FAIL Comment: Previous EF 20-25%, now 35-40% and RV strain Continue carvedilol; plan for IV furosemide today Daily weights, I/O (6) CKD (chronic kidney disease), stage III Code(s): N18.3 - CHRONIC KIDNEY DISEASE, STAGE 3 (MODERATE) Comment: Acute on chronic process Creatinine baseline 1.0-1.3 Expect increase in creatinine with diuresis Continue to monitor Avoid nephrotoxic medication (7) Hypertension Code(s): I10 - ESSENTIAL (PRIMARY) HYPERTENSION Comment: Normotensive Continue carvedilol, lisinopril, spironolactone with hold parameters Resume torsemide tomorrow; IV furosemide today (8) FRANCIS (obstructive sleep apnea) Code(s): G47.33 - OBSTRUCTIVE SLEEP APNEA (ADULT) (PEDIATRIC) Comment: Home CPAP out of use for past few weeks as it is not working Offer hospital CPAP Will need f/u with PCP to resolve home CPAP issue (9) Dyslipidemia Code(s): E78.5 - HYPERLIPIDEMIA, UNSPECIFIED Comment: Continue statin. (10) Morbid obesity Code(s): E66.01 - MORBID (SEVERE) OBESITY DUE TO EXCESS CALORIES Comment: BMI 56 Follows with [facility] for medically supervised weight loss Status and Disposition: Inpatient admission. Anticipate discharge to home when medically stable.
--- NOTE | 2017-06-17 14:57 | ECHO ---
Patient: MARYCHUY DELGADO [facility] Rec#: [id number] : 1955 Date: 06/17/2017 Age: 61y Height: 162.56 cm / 64.0 in Weight: 147.87 kg / 325.9 lbs Sex: F BSA: 2.41 Room#: 447 Admit Date#: 06/16/2017 Type: Inpatient Referring: Leigha Knutson Reading: Michael Powell MD Associate Professor Of Violin: Raquel Rocha RDCS CC: Blake Stuart MD Transthoracic Echocardiogram Indication: Pulmonary Embolism, dyspnea BP: 124/71 HR: 99 Rhythm: Paced Findings History: Pacer/AICD, a-fib, CHF, COPD, HTN, chronic renal failure, former smoker, [place], FRANCIS on CPAP, lymphoma. Technical Comments: The study quality is poor. The study is technically limited due to poor parasternal windows. Completed at 1215. Left Ventricle: The left ventricular chamber size is normal. Mild concentric left ventricular hypertrophy is observed. There is increased basal septal hypertrophy noted without evidence of an increased gradient across the left ventricular outflow tract. Moderate global hypokinesis of the left ventricle is observed. There is moderately decreased left ventricular systolic function. The estimated ejection fraction is 35-40%. There is septal flattening of the interventricular septum consistent with right ventricular volume or pressure overload. There is abnormal ventricular septal wall motion consistent with right ventricular pacemaker. The assessment of diastolic function is non-diagnostic. Left Atrium: The left atrium is moderately dilated. Right Ventricle: The right ventricle is moderately dilated. The right ventricular global systolic function is mildly to moderately reduced. A pacemaker wire is visualized in the right ventricle. Right Atrium: The right atrium is moderate to severely dilated. The interatrial septum bowed toward the left. A pacemaker wire is visualized in the right atrium. Aortic Valve: The aortic valve is trileaflet. The aortic valve leaflets are mildly thickened. There is a trace of aortic regurgitation. There is no evidence of aortic stenosis. Mitral Valve: The mitral valve leaflets are mildly thickened. There is mild mitral regurgitation. There is no evidence of mitral stenosis. Tricuspid Valve: The tricuspid valve leaflets are normal. There is trace to mild tricuspid regurgitation. The right ventricular systolic pressure is estimated at 38 mmHg. There is evidence of mild pulmonary hypertension. There is no tricuspid stenosis. Pulmonic Valve: The pulmonic valve appears normal. There is mild pulmonic regurgitation. There is no pulmonic stenosis. Pericardium: There is no significant pericardial effusion. A pericardial fat pad is visualized. Aorta: There is no dilatation of the ascending aorta. The aortic arch is not well visualized. The aortic root is normal in size. Pulmonary Artery: The main pulmonary artery is not well visualized. Venous: The inferior vena cava is dilated. There is an approximate 50% respiratory change in the inferior vena cava dimension. Conclusions Mild concentric left ventricular hypertrophy is observed. There is increased basal septal hypertrophy noted without evidence of an increased gradient across the left ventricular outflow tract. Moderate global hypokinesis of the left ventricle is observed. There is moderately decreased left ventricular systolic function. The estimated ejection fraction is 35-40%. There is septal flattening of the interventricular septum consistent with right ventricular volume or pressure overload. There is abnormal ventricular septal wall motion consistent with right ventricular pacemaker. The left atrium is moderately dilated. The right ventricle is moderately dilated. The right ventricular global systolic function is mildly to moderately reduced. The left atrium is moderately dilated. There is mild mitral regurgitation. There is trace to mild tricuspid regurgitation. There is evidence of mild pulmonary hypertension. There is mild pulmonic regurgitation. Compared to report of prior study from 03/26/2017 the right ventricular systolic function is worae (was mildly reduced). The right ventricule is larger (was mildly dilated. Measurements Name Value Normal Range RVIDd (AP) 2D 4.7 cm (0.9 - 2.6) RVDdMajor (2D) 5.3 cm (2.2 - 4.4) RAd ISD 4CH 6.5 cm (3.4 - 4.9) RA (A4C)W 5 cm (2.9 - 4.6) IVSd (2D) 1.5 cm (0.6 - 1) LVPWd (2D) 1.1 cm (0.6 - 1) LVIDd (2D) 5.2 cm (3.6 - 5.4) LVIDs (2D) 4.3 cm - LV FS (2D) 17 % (25 - 45) Aortic Annulus 1.7 cm (1.4 - 2.6) Ao root diameter (2D) 2.7 cm (2.1 - 3.5) Ascending Ao 3.1 cm (2.1 - 3.4) LA dimension (AP) 2D 5.3 cm (2.3 - 3.8) LAd ISD 4CH 6.8 cm (2.9 - 5.3) LA ISD 4CH W 4.3 cm (2.5 - 4.5) Name Value Normal Range LA ESV SP 4CH (A/L) 98 ml - LA ESV SP 2CH (A/L) 94 ml - LA ESV BP (A/L) 99 ml - LA ESV BP (A/L) index 41 ml/m2 - LA ESV SP 4CH (MOD) 90 ml - LA ESV SP 2CH (MOD) 87 ml - Name Value Normal Range MV E-wave Vmax 1.02 m/sec - MV deceleration time 161.2 msec - LV septal e' Vmax 0.05 m/sec - LV lateral e' Vmax 0.11 m/sec - LV E:e' septal ratio 20 ratio - LV E:e' lateral ratio 9.09 ratio - Name Value Normal Range AV Vmax 1.51 m/sec - AV VTI 23.97 cm - AV peak gradient 9.23 mmHg - AV mean gradient 5.87 mmHg - LVOT Vmax 1.06 m/sec - LVOT VTI 16.72 cm - LVOT peak gradient 4.55 mmHg - LVOT mean gradient 2.75 mmHg - Name Value Normal Range MR Vmax 3.9 m/sec - MR VTI 103.1 cm - Name Value Normal Range TR Vmax 2.4 m/sec - TR peak gradient 23 mmHg - RAP 15 mmHg - RVSP 38 mmHg - IVC diameter 2.5 cm - Name Value Normal Range PV Vmax 0.9 m/sec - PV peak gradient 3.38 mmHg - OR end-diastolic Vmax 1.45 m/sec -
[2017-06-17] MEDS: traMADol TAB* 50 MG PO PRN (15:49)
[2017-06-17] MEDS: ALPRAZolam TAB* 0.5 MG PO PRN (16:30)
[2017-06-17] MEDS: Albuterol 2.5 MG/3 ML NEB.SOL* (0.083%) INH PRN (21:31)
[2017-06-17] MEDS: QUEtiapine TAB* 100 MG PO SCH (21:43)
[2017-06-17] MEDS: traZODone TAB* 100 MG PO SCH (21:43)
[2017-06-17] MEDS: Nicotine Patch Removal NOTE PATCH OFF SCH (21:44)
[2017-06-17] MEDS: Carvedilol TAB* 25 MG PO SCH (21:50)
[2017-06-17] MEDS: QUEtiapine TAB* 300 MG PO SCH (22:45)
[2017-06-18] MEDS: traMADol TAB* 50 MG PO PRN (02:05)
[2017-06-18] MEDS: Tiotropium CAP.INH* CAP.INH/18 MCG (USE ORDER SET !) INH SCH (07:35)
[2017-06-18] MEDS: Mometasone/Formoter 100/5 MDI INH SCH ×2 (07:35→20:09)
[2017-06-18] MEDS ORDERED: Furosemide IV* 10 MG/ML VIAL (40 MG) IV SLOW PU ONE (08:05)
[2017-06-18 08:35] LABS: ABS Basophils 0 10^3/ul (0-0.2); ABS Eosinophils 0.1 10^3/ul (0-0.6); ABS Lymphocytes 0.6 10^3/ul (1.0-4.8); ABS Monocytes 0.4 10^3/ul (0-0.8); ABS Neutrophils 4.2 10^3/ul (1.5-7.7); ABS Nucleated RBC 0 10^3/ul; Eosinophil % 2.6 % (0-6); Hematocrit 31 % (35-47); Lymphocyte % 10.3 % (25-47); Mean Corpuscular HGB Conc 32 g/dl (31-36); Mean Corpuscular Hemoglobin 27 pg (27-31); Mean Corpuscular Volume 83 fL (80-97); Mean Platelet Volume 9 um3 (7.4-10.4); Nucleated Red Blood Cells % 0.5; Platelet Count 184 10^3/ul (150-450); Red Blood Count 3.76 10^6/ul (4.0-5.4); Red Cell Distribution Width 19 % (10.5-15); White Blood Count 5.4 10^3/ul (3.5-10.8)
[2017-06-18 08:48] LABS: EGFR Non-African American 24.2 (>60)
[2017-06-18] MEDS ORDERED: Torsemide TAB* 20 MG PO SCH (09:00)
[2017-06-18] MEDS: Lisinopril TAB* 10 MG PO SCH (09:14)
[2017-06-18] MEDS: Spironolactone TAB* 25 MG PO SCH (09:15)
[2017-06-18] MEDS: Potassium Chlor TAB* 20 MEQ TAB.ER PO SCH (09:21)
[2017-06-18] MEDS: Multivitamins/Minerals TAB PO SCH (09:21)
[2017-06-18] MEDS: Ferrous Sulfate TAB* 325 MG PO SCH (09:21)
[2017-06-18] MEDS: Docusate CAP* 100 MG PO SCH ×2 (09:21→21:03)
[2017-06-18] MEDS: Omeprazole CAP* 20 MG PO SCH (09:21)
[2017-06-18] MEDS: Carvedilol TAB* 25 MG PO SCH ×2 (09:21→21:04)
[2017-06-18] MEDS: Atorvastatin* 20 MG TAB PO SCH (09:21)
[2017-06-18] MEDS: Nicotine PATCH 14 MG/24 HR* PATCH TRANSDERM SCH (09:22)
[2017-06-18] MEDS: Albuterol 2.5 MG/3 ML NEB.SOL* (0.083%) INH PRN (09:42)
[2017-06-18] MEDS ORDERED: oxyCODONE TAB* 5 MG TAB PO PRN (10:03)
[2017-06-18] MEDS: Benzonatate CAP* 100 MG PO PRN ×2 (10:17→21:03)
[2017-06-18] MEDS: ALPRAZolam TAB* 0.5 MG PO PRN (10:17)
--- NOTE | 2017-06-18 10:25 | PN ---
Progress Note - Progress Note Date of Service: 06/18/17 SOAP: Subjective: []Very SOB today, not feel any better. No bleeding on heparin, polyuria. No fevers. Active Medications Generic Name Dose Route Start Last Admin Trade Name Freq PRN Reason Stop Dose Admin Acetaminophen 650 mg 06/16/17 04:00 Tylenol Tab* PO Q6H PRN FEVER/PAIN Albuterol 2.5 mg 06/16/17 04:00 06/18/17 09:42 Ventolin 2.5 Mg/3 Ml Neb.Lois* INH 2.5 mg Q2H PRN Administration SOB/WHEEZING Albuterol 2 puff 06/16/17 19:51 06/17/17 08:24 Ventolin Hfa Inhaler* INH 2 puff Q4H PRN Administration SOB/WHEEZING Alprazolam 0.5 mg 06/16/17 19:51 06/18/17 10:17 Xanax Tab* PO 0.5 mg TID PRN Administration ANXIETY Atorvastatin Calcium 20 mg 06/16/17 20:00 06/18/17 09:21 Lipitor* PO 20 mg DAILY LIYAH Administration Benzonatate 200 mg 06/16/17 19:51 06/18/17 10:17 Tessalon Cap* PO 200 mg Q6H PRN Administration COUGH Carvedilol 50 mg 06/17/17 21:00 06/18/17 09:21 Coreg Tab* PO 50 mg BID LIYAH Administration Docusate Sodium 100 mg 06/16/17 21:00 06/18/17 09:21 Colace Cap* PO 100 mg BID LIYAH Administration Ferrous Sulfate 325 mg 06/17/17 09:00 06/18/17 09:21 Ferrous Sulfate Tab* PO 325 mg DAILY LIYAH Administration Heparin Sodium (Porcine) 0 units 06/16/17 08:00 06/17/17 04:48 Heparin Vial(*) IV 3,700 units .PER PROTOCOL LIYAH Administration Protocol Heparin Sodium/Dextrose 25,000 units in 500 mls @ 0 mls/hr 06/16/17 07:30 09/29 16:31 Heparin Drip 25,000 Units(*) IVPB 36 mls/hr .PER RATE LIYAH Administration Protocol Per Protocol Lisinopril 20 mg 06/17/17 09:00 06/18/17 09:14 Prinivil Tab* PO Not Given DAILY LIYAH Melatonin 3 mg 06/16/17 04:00 Melatonin (Nf) PO BEDTIME PRN Sleep Protocol Mometasone Furoate/Formoterol Fumar 1 puff 06/16/17 21:00 06/18/17 07:35 Dulera 100/5 Mdi* INH 1 puff BID LIYAH Administration Multivitamins/Minerals 1 tab 06/17/17 09:00 06/18/17 09:21 Theragran/Minerals Tab* PO 1 tab DAILY LIYAH Administration Nicotine 10 mg 06/16/17 19:51 Nicotine Inhaler* INH Q2H PRN CRAVINGS Nicotine 1 patch 06/17/17 09:00 06/18/17 09:22 Nicotine Patch 14 Mg/24 Hr* TRANSDERM 1 patch DAILY LIYAH Administration Omeprazole 20 mg 06/17/17 07:30 06/18/17 09:21 Prilosec Cap* PO 20 mg DAILY@0730 LIYAH Administration Ondansetron HCl 4 mg 06/16/17 04:00 Zofran Inj* IV Q6H PRN NAUSEA Oxycodone HCl 10 mg 06/18/17 10:03 Roxycodone Tab* PO Q4H PRN PAIN Pharmacy Profile Note 1 note 06/17/17 21:00 06/17/17 21:44 Nicotine Patch Removal Note* PATCH OFF 1 note 2100 LIYAH Administration Potassium Chloride 20 meq 06/17/17 08:30 06/18/17 09:21 Klor Con Er Tab* PO 20 meq DAILY WITH MEAL LIYAH Administration Quetiapine Fumarate 600 mg 06/16/17 21:00 06/17/17 22:45 Seroquel Tab* PO 600 mg BEDTIME LIYAH Administration Quetiapine Fumarate 200 mg 06/16/17 21:00 06/17/17 21:43 Seroquel Tab* PO 200 mg BEDTIME LIYAH Administration Spironolactone 100 mg 06/17/17 09:00 06/18/17 09:15 Aldactone Tab* PO Not Given DAILY LIYAH Tiotropium [place] 1 cap 06/16/17 21:00 06/18/17 07:35 Spiriva Cap.Inh* INH 1 cap DAILY LIYAH Administration Tramadol HCl 50 mg 06/16/17 19:51 06/18/17 02:05 Ultram* PO 50 mg Q6H PRN Administration PAIN Trazodone HCl 100 mg 06/16/17 21:00 06/17/17 21:43 Desyrel Tab* PO 100 mg BEDTIME LIYAH Administration Objective: [] Vital Signs Temp Pulse Resp BP Pulse Ox 98.2 F 94 20 90/67 100 06/18/17 08:06 06/18/17 09:42 06/18/17 10:17 06/18/17 08:06 06/18/17 09:42 morbidly obese hard, mobile, 2 cm right supraclav node no nodes on left or axilla tachy distant bs, diffuse wheezing. obese nt +Bs 1+ LE edema A+Ox 3 grossly nonfocal Laboratory Results - last 24 hr 06/17/17 06/17/17 06/17/17 14:10 14:56 14:56 WBC RBC Hgb Hct MCV MCH MCHC RDW Plt Count MPV Neut % (Auto) Lymph % (Auto) [place] % (Auto) Eos % (Auto) Baso % (Auto) Absolute Neuts (auto) Absolute Lymphs (auto) Absolute Monos (auto) Absolute Eos (auto) Absolute Basos (auto) Absolute Nucleated RBC Nucleated RBC % APTT 59.3 H Sodium Potassium Chloride Carbon Dioxide Anion Gap BUN Creatinine Est GFR ( Amer) Est GFR (Non-Af Amer) BUN/Creatinine Ratio Glucose Calcium Iron 28 L TIBC 309 % Saturation 9 L Unsat Iron Binding 281 Ferritin 109.5 Vitamin B12 248 Flow Intrp 2-8 Markers TNP Flow Intrp 16+ Markers TNP 06/17/17 06/18/17 06/18/17 23:25 08:14 08:14 WBC 5.4 RBC 3.76 L Hgb 10.0 L Hct 31 L MCV 83 MCH 27 MCHC 32 RDW 19 H Plt Count 184 MPV 9 Neut % (Auto) 78.7 Lymph % (Auto) 10.3 L [place] % (Auto) 8.0 Eos % (Auto) 2.6 Baso % (Auto) 0.4 Absolute Neuts (auto) 4.2 Absolute Lymphs (auto) 0.6 L Absolute Monos (auto) 0.4 Absolute Eos (auto) 0.1 Absolute Basos (auto) 0 Absolute Nucleated RBC 0 Nucleated RBC % 0.5 APTT 53.2 H Sodium 133 Potassium 4.8 Chloride 97 L Carbon Dioxide 30 Anion Gap 6 BUN 48 H Creatinine 2.08 H Est GFR ( Amer) 31.1 Est GFR (Non-Af Amer) 24.2 BUN/Creatinine Ratio 23.1 H Glucose 118 H Calcium 9.0 Iron TIBC % Saturation Unsat Iron Binding Ferritin Vitamin B12 Flow Intrp 2-8 Markers Flow Intrp 16+ Markers Assessment: []61 year old with history of MCL. Presents with acute PE on Eliquis, now on heparin drip. She has a supra clavicular LN. FNA reviewed with pathology and suspicious for recurrent MCL, flow and cyclin D1 pending. Plan: []1. PE. Continue Heparin and hold Coumadin until we know if erosional biopsy is needed. 2. LN. suspect MCL. If flow and cyclin D1 is consistent with recurrent disease, no additional biopsy. If cyclin D1 negative will need erosional biopsy. 3. SOB. Wheezing today, suspect COPD exacerbation, continue inhalers, steroids of worsens. 4. Increased Cr, CRI + diuretics + IVC. Follow today, hold additional Lasix.
--- NOTE | 2017-06-18 12:31 | PN ---
Subjective Date of Service: 06/18/17 Interval History: Patient seen and examined at bedside. She is sitting up to eat lunch. Reports headache from sinus congestion, cough, wheezing. Denies CP except with deep inspiration. She reports semi productive cough. Eating and sleeping okay. Family History: Unchanged from Admission Social History: Unchanged from Admission Past Medical History: Unchanged from Admission Objective Active Medications: Acetaminophen (Tylenol Tab*) 650 mg PO Q6H PRN PRN Reason: FEVER/PAIN Albuterol (Ventolin 2.5 Mg/3 Ml Neb.Lois*) 2.5 mg INH Q2H PRN PRN Reason: SOB/WHEEZING Last Admin: 06/18/17 09:42 Dose: 2.5 mg Albuterol (Ventolin Hfa Inhaler*) 2 puff INH Q4H PRN PRN Reason: SOB/WHEEZING Last Admin: 06/17/17 08:24 Dose: 2 puff Alprazolam (Xanax Tab*) 0.5 mg PO TID PRN PRN Reason: ANXIETY Last Admin: 06/18/17 10:17 Dose: 0.5 mg Atorvastatin Calcium (Lipitor*) 20 mg PO DAILY [facility] Last Admin: 06/18/17 09:21 Dose: 20 mg Benzonatate (Tessalon Cap*) 200 mg PO Q6H PRN PRN Reason: COUGH Last Admin: 06/18/17 10:17 Dose: 200 mg Carvedilol (Coreg Tab*) 50 mg PO BID [facility] Last Admin: 06/18/17 09:21 Dose: 50 mg Docusate Sodium (Colace Cap*) 100 mg PO BID [facility] Last Admin: 06/18/17 09:21 Dose: 100 mg Ferrous Sulfate (Ferrous Sulfate Tab*) 325 mg PO DAILY [facility] Last Admin: 06/18/17 09:21 Dose: 325 mg Heparin Sodium (Porcine) (Heparin Vial(*)) 0 units IV .PER PROTOCOL LIYAH PRN Reason: Protocol Last Admin: 06/17/17 04:48 Dose: 3,700 units Heparin Sodium/Dextrose (Heparin Drip 25,000 Units(*)) 25,000 units in 500 mls @ 0 mls/hr IVPB .PER RATE LIYAH; Per Protocol PRN Reason: Protocol Last Admin: 06/17/17 16:31 Dose: 36 mls/hr Lisinopril (Prinivil Tab*) 20 mg PO DAILY [facility] Last Admin: 06/18/17 09:14 Dose: Not Given Melatonin (Melatonin (Nf)) 3 mg PO BEDTIME PRN; Protocol PRN Reason: Sleep Mometasone Furoate/Formoterol Fumar (Dulera 100/5 Mdi*) 1 puff INH BID [facility] Last Admin: 06/18/17 07:35 Dose: 1 puff Multivitamins/Minerals (Theragran/Minerals Tab*) 1 tab PO DAILY [facility] Last Admin: 06/18/17 09:21 Dose: 1 tab Nicotine (Nicotine Inhaler*) 10 mg INH Q2H PRN PRN Reason: CRAVINGS Nicotine (Nicotine Patch 14 Mg/24 Hr*) 1 patch TRANSDERM DAILY [facility] Last Admin: 06/18/17 09:22 Dose: 1 patch Omeprazole (Prilosec Cap*) 20 mg PO DAILY@0730 [facility] Last Admin: 06/18/17 09:21 Dose: 20 mg Ondansetron HCl (Zofran Inj*) 4 mg IV Q6H PRN PRN Reason: NAUSEA Pharmacy Profile Note (Nicotine Patch Removal Note*) 1 note PATCH OFF 2100 [facility] Last Admin: 06/17/17 21:44 Dose: 1 note Potassium Chloride (Klor Con Er Tab*) 20 meq PO DAILY WITH MEAL [facility] Last Admin: 06/18/17 09:21 Dose: 20 meq Quetiapine Fumarate (Seroquel Tab*) 600 mg PO BEDTIME [facility] Last Admin: 06/17/17 22:45 Dose: 600 mg Quetiapine Fumarate (Seroquel Tab*) 200 mg PO BEDTIME [facility] Last Admin: 06/17/17 21:43 Dose: 200 mg Spironolactone (Aldactone Tab*) 100 mg PO DAILY [facility] Last Admin: 06/18/17 09:15 Dose: Not Given Tiotropium [place] (Spiriva Cap.Inh*) 1 cap INH DAILY [facility] Last Admin: 06/18/17 07:35 Dose: 1 cap Tramadol HCl (Ultram*) 50 mg PO Q6H PRN PRN Reason: PAIN Last Admin: 06/18/17 02:05 Dose: 50 mg Trazodone HCl (Desyrel Tab*) 100 mg PO BEDTIME [facility] Last Admin: 06/17/17 21:43 Dose: 100 mg Vital Signs - 8 hr 06/18/17 06/18/17 06/18/17 04:36 07:39 08:00 Temperature Pulse Rate 96 Respiratory 18 22 20 Rate Blood Pressure (mmHg) O2 Sat by Pulse 91 94 Oximetry 06/18/17 06/18/17 06/18/17 08:06 09:42 10:17 Temperature 98.2 F Pulse Rate 113 94 Respiratory 22 22 20 Rate Blood Pressure 90/67 (mmHg) O2 Sat by Pulse 91 100 Oximetry Oxygen Devices in Use Now: Nasal Cannula Appearance: Female patient, sitting on edge of bed, NAD Eyes: No Scleral Icterus Ears/Nose/Mouth/Throat: Clear Oropharnyx, Mucous Membranes Moist Neck: NL Appearance and Movements; NL JVP Respiratory: Symmetrical Chest Expansion and Respiratory Effort, - - diminished with expiratory wheezing throughout Cardiovascular: NL Sounds; No Murmurs; No JVD, - - irregularly irregular rate, BLE edema 2+ pitting Abdominal: NL Sounds; No Tenderness; No Distention Extremities: No Clubbing, Cyanosis Neurological: Alert and Oriented x 3, NL Muscle Strength and Tone Lines/Tubes/Other Access: Clean, Dry and Intact Peripheral IV Nutrition: Taking PO's Result Diagrams: 06/18/17 08:14 06/18/17 08:14 Additional Lab and Data: Lab Results 06/15/17 06/15/17 06/15/17 Range/Units 22:20 22:20 22:20 WBC (3.5-10.8) 10^3/ul RBC (4.0-5.4) 10^6/ul Hgb (12.0-16.0) g/dl Hct (35-47) % MCV (80-97) fL MCH (27-31) pg MCHC (31-36) g/dl RDW (10.5-15) % Plt Count (150-450) 10^3/ul MPV (7.4-10.4) um3 Neut % (Auto) (38-83) % Lymph % (Auto) (25-47) % [place] % (Auto) (1-9) % Eos % (Auto) (0-6) % Baso % (Auto) (0-2) % Absolute Neuts (auto) (1.5-7.7) 10^3/ul Absolute Lymphs (auto) (1.0-4.8) 10^3/ul Absolute Monos (auto) (0-0.8) 10^3/ul Absolute Eos (auto) (0-0.6) 10^3/ul Absolute Basos (auto) (0-0.2) 10^3/ul Absolute Nucleated RBC 10^3/ul Nucleated RBC % INR (Anticoag Therapy) 1.06 H (0.77-1.02) APTT 29.0 (26.0-36.3) seconds D-Dimer, Quantitative 605 H (Less Than 230) ng/mL Sodium 140 (133-145) mmol/L Potassium 4.1 (3.5-5.0) mmol/L Chloride 101 (101-111) mmol/L Carbon Dioxide 34 H (22-32) mmol/L Anion Gap 5 (2-11) mmol/L BUN 28 H (6-24) mg/dL Creatinine 1.51 H (0.51-0.95) mg/dL Est GFR ( Amer) 45.1 (>60) Est GFR (Non-Af Amer) 35.0 (>60) BUN/Creatinine Ratio 18.5 (8-20) Glucose 104 H (70-100) mg/dL Lactic Acid (0.5-2.0) mmol/L Calcium 8.7 (8.6-10.3) mg/dL Total Bilirubin 0.40 (0.2-1.0) mg/dL AST 7 L (13-39) U/L ALT 8 (7-52) U/L Alkaline Phosphatase 76 (34-104) U/L Total Creatine Kinase 37 (10-223) U/L CK-MB (CK-2) 1.1 (0.6-6.3) ng/mL Troponin I 0.02 (<0.04) ng/mL C-Reactive Protein 93.11 H (< 5.00) mg/L B-Natriuretic Peptide 368 H ( - 100) pg/mL Total Protein 6.6 (6.4-8.9) g/dL Albumin 3.3 (3.2-5.2) g/dL Globulin 3.3 (2-4) g/dL Albumin/Globulin Ratio 1.0 (1-3) Influenza A (Rapid) (Negative) Influenza B (Rapid) (Negative) 06/15/17 06/15/17 06/15/17 Range/Units 22:20 22:20 22:42 WBC 6.5 (3.5-10.8) 10^3/ul RBC 4.09 (4.0-5.4) 10^6/ul Hgb 10.8 L (12.0-16.0) g/dl Hct 33 L (35-47) % MCV 82 (80-97) fL MCH 26 L (27-31) pg MCHC 32 (31-36) g/dl RDW 19 H (10.5-15) % Plt Count 205 (150-450) 10^3/ul MPV 9 (7.4-10.4) um3 Neut % (Auto) 74.3 (38-83) % Lymph % (Auto) 16.4 L (25-47) % [place] % (Auto) 7.7 (1-9) % Eos % (Auto) 0.9 (0-6) % Baso % (Auto) 0.7 (0-2) % Absolute Neuts (auto) 4.8 (1.5-7.7) 10^3/ul Absolute Lymphs (auto) 1.1 (1.0-4.8) 10^3/ul Absolute Monos (auto) 0.5 (0-0.8) 10^3/ul Absolute Eos (auto) 0.1 (0-0.6) 10^3/ul Absolute Basos (auto) 0 (0-0.2) 10^3/ul Absolute Nucleated RBC 0.12 10^3/ul Nucleated RBC % 1.8 INR (Anticoag Therapy) (0.77-1.02) APTT (26.0-36.3) seconds D-Dimer, Quantitative (Less Than 230) ng/mL Sodium (133-145) mmol/L Potassium (3.5-5.0) mmol/L Chloride (101-111) mmol/L Carbon Dioxide (22-32) mmol/L Anion Gap (2-11) mmol/L BUN (6-24) mg/dL Creatinine (0.51-0.95) mg/dL Est GFR ( Amer) (>60) Est GFR (Non-Af Amer) (>60) BUN/Creatinine Ratio (8-20) Glucose (70-100) mg/dL Lactic Acid 0.8 (0.5-2.0) mmol/L Calcium (8.6-10.3) mg/dL Total Bilirubin (0.2-1.0) mg/dL AST (13-39) U/L ALT (7-52) U/L Alkaline Phosphatase (34-104) U/L Total Creatine Kinase (10-223) U/L CK-MB (CK-2) (0.6-6.3) ng/mL Troponin I (<0.04) ng/mL C-Reactive Protein (< 5.00) mg/L B-Natriuretic Peptide ( - 100) pg/mL Total Protein (6.4-8.9) g/dL Albumin (3.2-5.2) g/dL Globulin (2-4) g/dL Albumin/Globulin Ratio (1-3) Influenza A (Rapid) Negative (Negative) Influenza B (Rapid) Negative (Negative) Microbiology and Other Data: Microbiology 06/16/17 01:30 Urine Culture - Final Urine Assess/Plan/Problems-Billing Assessment: Ms. Robledo is a 61 yo female with a PMH of afib on Eliquis, systolic/diastolic HF, HTN, DM2, FRANCIS, COPD, lymphoma, CKD 3, and depression and anxiety who presented to the ED with gradually worsening SOB for 2 weeks; CTA shows bilateral pulmonary emboli. - Patient Problems (1) Pulmonary embolism with acute cor pulmonale Code(s): I26.09 - OTHER PULMONARY EMBOLISM WITH ACUTE COR PULMONALE Comment: CTA shows moderately large burden of bilateral acute pulmonary emboli Patient with Eliquis failure, cont heparin gtt at this time per oncology Appreciate heme/onc consult Echo shows EF 35-40% and right ventricular function is mildly to moderately reduced with RV moderately dilated. Continue O2, careful monitoring of fluid status (2) History of lymphoma Code(s): Z85.79 - PRSNL HX OF MALIG NEOPLM OF LYMPHOID, HEMATPOETC & REL TISS Comment: Hx of mantle cell lymphoma Appreciate heme/onc consult With concern for malignancy, given Eliquis failure and hard, right supraclavicular node FNA on 06/17/17 (3) COPD (chronic obstructive pulmonary disease) Code(s): J44.9 - CHRONIC OBSTRUCTIVE PULMONARY DISEASE, UNSPECIFIED Comment: Suspect mild exacerbation now, secondary to URI symptoms Start prednisone for increased SOB and wheezing, standing nebulizers (4) Systolic and diastolic CHF, chronic Code(s): I50.42 - CHRONIC COMBINED SYSTOLIC AND DIASTOLIC HRT FAIL Comment: Suspect mild exacerbation secondary to heparin and cardizem gtt Previous EF 20-25%, now 35-40% and RV strain Continue carvedilol; plan for IV furosemide today and follow BMP Hold home torsemide Daily weights, I/O (5) Atrial fibrillation with RVR Code(s): I48.91 - UNSPECIFIED ATRIAL FIBRILLATION Comment: Now rate controlled Continue amidoarone and carvedilol (6) CKD (chronic kidney disease), stage III Code(s): N18.3 - CHRONIC KIDNEY DISEASE, STAGE 3 (MODERATE) Comment: Acute on chronic process Creatinine baseline 1.0-1.3 Expect increase in creatinine with diuresis Continue to monitor Avoid nephrotoxic medication (7) Hypertension Code(s): I10 - ESSENTIAL (PRIMARY) HYPERTENSION Comment: Normotensive Continue carvedilol, lisinopril, spironolactone with hold parameters Torsemide on hold while using IV furosemide (8) FRANCIS (obstructive sleep apnea) Code(s): G47.33 - OBSTRUCTIVE SLEEP APNEA (ADULT) (PEDIATRIC) Comment: Home CPAP out of use for past few weeks as it is not working Offer hospital CPAP Will need f/u with PCP to resolve home CPAP issue (9) Dyslipidemia Code(s): E78.5 - HYPERLIPIDEMIA, UNSPECIFIED Comment: Continue statin. (10) Morbid obesity Code(s): E66.01 - MORBID (SEVERE) OBESITY DUE TO EXCESS CALORIES Comment: BMI 56 Follows with [facility] for medically supervised weight loss Status and Disposition: Inpatient admission. Extended LOS for complex medical issues.
[2017-06-18] MEDS ORDERED: predniSONE TAB* 20 MG PO ONE (12:42)
[2017-06-18] MEDS ORDERED: Acetaminophen TAB* 325 MG PO ONE (12:42)
[2017-06-18] MEDS: Heparin DRIP 25,000 UNITS(*) 25,000 UNITS/500 ML BAG IVPB SCH (12:45)
[2017-06-18] MEDS: Fluticasone NASAL SPRAY 50MCG* 16 gm SPRAY BTL BOTH NARES SCH (13:17)
[2017-06-18] MEDS: Albuterol 2.5 MG/3 ML NEB.SOL* (0.083%) INH SCH ×3 (15:35→23:25)
[2017-06-18] MEDS: QUEtiapine TAB* 300 MG PO SCH (21:03)
[2017-06-18] MEDS: traZODone TAB* 100 MG PO SCH (21:03)
[2017-06-18] MEDS: QUEtiapine TAB* 100 MG PO SCH (21:03)
[2017-06-18] MEDS: Acetaminophen TAB* 325 MG PO PRN (21:04)
[2017-06-18] MEDS: Nicotine Patch Removal NOTE PATCH OFF SCH (21:57)
[2017-06-18] MEDS: Senna TAB PO SCH (21:57)
[2017-06-19 00:28] LABS: ABS Basophils 0 10^3/ul (0-0.2); ABS Eosinophils 0 10^3/ul (0-0.6); ABS Lymphocytes 0.3 10^3/ul (1.0-4.8); ABS Monocytes 0.2 10^3/ul (0-0.8); ABS Neutrophils 4.7 10^3/ul (1.5-7.7); ABS Nucleated RBC 0 10^3/ul; Eosinophil % 0.1 % (0-6); Hematocrit 30 % (35-47); Hemoglobin 9.4 g/dl (12.0-16.0); Lymphocyte % 5.1 % (25-47); Mean Corpuscular HGB Conc 32 g/dl (31-36); Mean Corpuscular Hemoglobin 26 pg (27-31); Mean Corpuscular Volume 83 fL (80-97); Mean Platelet Volume 9 um3 (7.4-10.4); Nucleated Red Blood Cells % 0.2; Platelet Count 186 10^3/ul (150-450); Red Blood Count 3.63 10^6/ul (4.0-5.4); Red Cell Distribution Width 19 % (10.5-15); White Blood Count 5.2 10^3/ul (3.5-10.8)
[2017-06-19 00:30] LABS: INR 1.03 (0.77-1.02)
[2017-06-19] MEDS: Albuterol 2.5 MG/3 ML NEB.SOL* (0.083%) INH SCH ×5 (03:31→19:54)
[2017-06-19] MEDS: traMADol TAB* 50 MG PO PRN ×3 (04:23→21:07)
[2017-06-19] MEDS: Benzonatate CAP* 100 MG PO PRN ×3 (04:23→21:07)
[2017-06-19] MEDS: Heparin DRIP 25,000 UNITS(*) 25,000 UNITS/500 ML BAG IVPB SCH (07:30)
[2017-06-19 08:39] LABS: ABS Basophils 0 10^3/ul (0-0.2); ABS Eosinophils 0 10^3/ul (0-0.6); ABS Lymphocytes 0.6 10^3/ul (1.0-4.8); ABS Monocytes 0.3 10^3/ul (0-0.8); ABS Neutrophils 4.3 10^3/ul (1.5-7.7); ABS Nucleated RBC 0 10^3/ul; Eosinophil % 0.1 % (0-6); Hematocrit 31 % (35-47); Hemoglobin 9.8 g/dl (12.0-16.0); Lymphocyte % 10.7 % (25-47); Mean Corpuscular HGB Conc 32 g/dl (31-36); Mean Corpuscular Hemoglobin 26 pg (27-31); Mean Corpuscular Volume 83 fL (80-97); Mean Platelet Volume 9 um3 (7.4-10.4); Nucleated Red Blood Cells % 0.4; Platelet Count 187 10^3/ul (150-450); Red Blood Count 3.78 10^6/ul (4.0-5.4); Red Cell Distribution Width 19 % (10.5-15); White Blood Count 5.2 10^3/ul (3.5-10.8)
[2017-06-19] MEDS: Spironolactone TAB* 25 MG PO SCH (09:02)
[2017-06-19] MEDS: predniSONE TAB* 20 MG PO SCH (09:03)
[2017-06-19] MEDS: Acetaminophen TAB* 325 MG PO PRN (09:03)
[2017-06-19] MEDS: Docusate CAP* 100 MG PO SCH ×2 (09:04→21:07)
[2017-06-19] MEDS: Ferrous Sulfate TAB* 325 MG PO SCH (09:04)
[2017-06-19] MEDS: Carvedilol TAB* 25 MG PO SCH ×2 (09:04→21:06)
[2017-06-19] MEDS: Atorvastatin* 20 MG TAB PO SCH (09:04)
[2017-06-19] MEDS: Lisinopril TAB* 10 MG PO SCH (09:04)
[2017-06-19] MEDS: Omeprazole CAP* 20 MG PO SCH (09:04)
[2017-06-19] MEDS: Multivitamins/Minerals TAB PO SCH (09:04)
[2017-06-19] MEDS: Nicotine PATCH 14 MG/24 HR* PATCH TRANSDERM SCH (09:05)
[2017-06-19] MEDS: Potassium Chlor TAB* 20 MEQ TAB.ER PO SCH (09:05)
[2017-06-19] MEDS: Fluticasone NASAL SPRAY 50MCG* 16 gm SPRAY BTL BOTH NARES SCH (09:06)
[2017-06-19] MEDS: ALPRAZolam TAB* 0.5 MG PO PRN ×3 (09:10→21:07)
[2017-06-19] MEDS: Mometasone/Formoter 100/5 MDI INH SCH ×2 (09:40→19:55)
[2017-06-19] MEDS: Tiotropium CAP.INH* CAP.INH/18 MCG (USE ORDER SET !) INH SCH (09:40)
--- NOTE | 2017-06-19 09:53 | PN ---
Progress Note - Progress Note Date of Service: 06/19/17 SOAP: Subjective: [] No changes. Still feels very SOB. Walking to bathroom but that is about it. Eating ok, feels has to much fluid in body. Acetaminophen (Tylenol Tab*) 650 mg PO Q6H PRN PRN Reason: FEVER/PAIN Last Admin: 06/19/17 09:03 Dose: 650 mg Albuterol (Ventolin Hfa Inhaler*) 2 puff INH Q4H PRN PRN Reason: SOB/WHEEZING Last Admin: 06/17/17 08:24 Dose: 2 puff Albuterol (Ventolin 2.5 Mg/3 Ml Neb.Lois*) 2.5 mg INH [id number] AWAKE [facility] Last Admin: 06/19/17 09:36 Dose: 2.5 mg Alprazolam (Xanax Tab*) 0.5 mg PO TID PRN PRN Reason: ANXIETY Last Admin: 06/19/17 09:10 Dose: 0.5 mg Atorvastatin Calcium (Lipitor*) 20 mg PO DAILY [facility] Last Admin: 06/19/17 09:04 Dose: 20 mg Benzonatate (Tessalon Cap*) 200 mg PO Q6H PRN PRN Reason: COUGH Last Admin: 06/19/17 04:23 Dose: 200 mg Carvedilol (Coreg Tab*) 50 mg PO BID [facility] Last Admin: 06/19/17 09:04 Dose: 50 mg Docusate Sodium (Colace Cap*) 100 mg PO BID [facility] Last Admin: 06/19/17 09:04 Dose: 100 mg Ferrous Sulfate (Ferrous Sulfate Tab*) 325 mg PO DAILY [facility] Last Admin: 06/19/17 09:04 Dose: 325 mg Fluticasone Propionate (Flonase Nasal [place] 50mcg*) 2 spray BOTH NARES DAILY [facility] Last Admin: 06/19/17 09:06 Dose: 2 spray Heparin Sodium (Porcine) (Heparin Vial(*)) 0 units IV .PER PROTOCOL LIYAH PRN Reason: Protocol Last Admin: 06/17/17 04:48 Dose: 3,700 units Heparin Sodium/Dextrose (Heparin Drip 25,000 Units(*)) 25,000 units in 500 mls @ 0 mls/hr IVPB .PER RATE LIYAH; Per Protocol PRN Reason: Protocol Last Admin: 06/18/17 12:45 Dose: 36 mls/hr Lisinopril (Prinivil Tab*) 20 mg PO DAILY [facility] Last Admin: 06/19/17 09:04 Dose: 20 mg Melatonin (Melatonin (Nf)) 3 mg PO BEDTIME PRN; Protocol PRN Reason: Sleep Mometasone Furoate/Formoterol Fumar (Dulera 100/5 Mdi*) 1 puff INH BID [facility] Last Admin: 06/19/17 09:40 Dose: 1 puff Multivitamins/Minerals (Theragran/Minerals Tab*) 1 tab PO DAILY [facility] Last Admin: 06/19/17 09:04 Dose: 1 tab Nicotine (Nicotine Inhaler*) 10 mg INH Q2H PRN PRN Reason: CRAVINGS Nicotine (Nicotine Patch 14 Mg/24 Hr*) 1 patch TRANSDERM DAILY [facility] Last Admin: 06/19/17 09:05 Dose: 1 patch Omeprazole (Prilosec Cap*) 20 mg PO DAILY@0730 [facility] Last Admin: 06/19/17 09:04 Dose: 20 mg Ondansetron HCl (Zofran Inj*) 4 mg IV Q6H PRN PRN Reason: NAUSEA Pharmacy Profile Note (Nicotine Patch Removal Note*) 1 note PATCH OFF 2100 [facility] Last Admin: 06/18/17 21:57 Dose: 1 note Potassium Chloride (Klor Con Er Tab*) 20 meq PO DAILY WITH MEAL [facility] Last Admin: 06/19/17 09:05 Dose: 20 meq Prednisone (Deltasone Tab*) 40 mg PO DAILY [facility] Last Admin: 06/19/17 09:03 Dose: 40 mg Quetiapine Fumarate (Seroquel Tab*) 600 mg PO BEDTIME [facility] Last Admin: 06/18/17 21:03 Dose: 600 mg Quetiapine Fumarate (Seroquel Tab*) 200 mg PO BEDTIME [facility] Last Admin: 06/18/17 21:03 Dose: 200 mg Senna (Senokot Tab*) 2 tab PO BEDTIME [facility] Last Admin: 06/18/17 21:57 Dose: 2 tab Spironolactone (Aldactone Tab*) 100 mg PO DAILY [facility] Last Admin: 06/19/17 09:02 Dose: 100 mg Tiotropium [place] (Spiriva Cap.Inh*) 1 cap INH DAILY [facility] Last Admin: 06/19/17 09:40 Dose: 1 cap Tramadol HCl (Ultram*) 50 mg PO Q6H PRN PRN Reason: PAIN Last Admin: 06/19/17 04:23 Dose: 50 mg Trazodone HCl (Desyrel Tab*) 100 mg PO BEDTIME LIYAH Last Admin: 06/18/17 21:03 Dose: 100 mg Warfarin Sodium (Coumadin Tab(*)) 5 mg PO DAILY@1700 LIYAH PRN Reason: Protocol Objective: [] Vital Signs Temp Pulse Resp BP Pulse Ox 97.5 F 88 18 123/78 96 06/19/17 07:46 06/19/17 09:40 06/19/17 09:40 06/19/17 07:46 06/19/17 09:40 morbidly obese hard, mobile, 2 cm right supraclav node no nodes on left or axilla tachy No wheezing today, distant BS obese nt +Bs 1+ LE edema A+Ox 3 grossly nonfocal FNA - Reviewed with pathology and consistent with MCL, CD5+ lymphocytes, cyclin D1 pending Assessment: []61 year old with history of MCL. Presents with acute PE on Eliquis, now on heparin drip. She has a supra clavicular LN c/w recurrent MCL, final pathology pending. Plan: []1. PE. Given FNA we can start Coumadin - Ordered 5 mg daily, INR daily - Will need Heparin and Coumadin overlap x 48 hrs once INR > 2.0 2. MCL. Will follow up with Dr. Jc as outpatient and plan therapy. Multiple options available. 3. SOB. Wheezing better today, suspect COPD exacerbation, continue inhalers, steroids. Encouraged her to walk more. 4. Increased Cr, CRI + diuretics + IVC. Consider holding Aldactone.
--- NOTE | 2017-06-19 11:41 | PN ---
Subjective Date of Service: 06/19/17 Interval History: Pt still feels unwell, due to RUFF. Usually uses 3 L home 02, today on 4L Family History: Unchanged from Admission Social History: Unchanged from Admission Past Medical History: Unchanged from Admission Objective Active Medications: Acetaminophen (Tylenol Tab*) 650 mg PO Q6H PRN PRN Reason: FEVER/PAIN Last Admin: 06/19/17 09:03 Dose: 650 mg Albuterol (Ventolin Hfa Inhaler*) 2 puff INH Q4H PRN PRN Reason: SOB/WHEEZING Last Admin: 06/17/17 08:24 Dose: 2 puff Albuterol (Ventolin 2.5 Mg/3 Ml Neb.Lois*) 2.5 mg INH [id number] AWAKE [facility] Last Admin: 06/19/17 09:36 Dose: 2.5 mg Alprazolam (Xanax Tab*) 0.5 mg PO TID PRN PRN Reason: ANXIETY Last Admin: 06/19/17 09:10 Dose: 0.5 mg Atorvastatin Calcium (Lipitor*) 20 mg PO DAILY [facility] Last Admin: 06/19/17 09:04 Dose: 20 mg Benzonatate (Tessalon Cap*) 200 mg PO Q6H PRN PRN Reason: COUGH Last Admin: 06/19/17 04:23 Dose: 200 mg Carvedilol (Coreg Tab*) 50 mg PO BID [facility] Last Admin: 06/19/17 09:04 Dose: 50 mg Docusate Sodium (Colace Cap*) 100 mg PO BID [facility] Last Admin: 06/19/17 09:04 Dose: 100 mg Ferrous Sulfate (Ferrous Sulfate Tab*) 325 mg PO DAILY [facility] Last Admin: 06/19/17 09:04 Dose: 325 mg Fluticasone Propionate (Flonase Nasal [place] 50mcg*) 2 spray BOTH NARES DAILY [facility] Last Admin: 06/19/17 09:06 Dose: 2 spray Heparin Sodium (Porcine) (Heparin Vial(*)) 0 units IV .PER PROTOCOL LIYAH PRN Reason: Protocol Last Admin: 06/17/17 04:48 Dose: 3,700 units Heparin Sodium/Dextrose (Heparin Drip 25,000 Units(*)) 25,000 units in 500 mls @ 0 mls/hr IVPB .PER RATE LIYAH; Per Protocol PRN Reason: Protocol Last Admin: 06/19/17 07:30 Dose: 36 mls/hr Melatonin (Melatonin (Nf)) 3 mg PO BEDTIME PRN; Protocol PRN Reason: Sleep Mometasone Furoate/Formoterol Fumar (Dulera 100/5 Mdi*) 1 puff INH BID [facility] Last Admin: 06/19/17 09:40 Dose: 1 puff Multivitamins/Minerals (Theragran/Minerals Tab*) 1 tab PO DAILY [facility] Last Admin: 06/19/17 09:04 Dose: 1 tab Nicotine (Nicotine Inhaler*) 10 mg INH Q2H PRN PRN Reason: CRAVINGS Nicotine (Nicotine Patch 14 Mg/24 Hr*) 1 patch TRANSDERM DAILY [facility] Last Admin: 06/19/17 09:05 Dose: 1 patch Omeprazole (Prilosec Cap*) 20 mg PO DAILY@0730 [facility] Last Admin: 06/19/17 09:04 Dose: 20 mg Ondansetron HCl (Zofran Inj*) 4 mg IV Q6H PRN PRN Reason: NAUSEA Pharmacy Profile Note (Nicotine Patch Removal Note*) 1 note PATCH OFF 2100 [facility] Last Admin: 06/18/17 21:57 Dose: 1 note Potassium Chloride (Klor Con Er Tab*) 20 meq PO DAILY WITH MEAL [facility] Last Admin: 06/19/17 09:05 Dose: 20 meq Prednisone (Deltasone Tab*) 40 mg PO DAILY [facility] Last Admin: 06/19/17 09:03 Dose: 40 mg Quetiapine Fumarate (Seroquel Tab*) 600 mg PO BEDTIME [facility] Last Admin: 06/18/17 21:03 Dose: 600 mg Quetiapine Fumarate (Seroquel Tab*) 200 mg PO BEDTIME [facility] Last Admin: 06/18/17 21:03 Dose: 200 mg Senna (Senokot Tab*) 2 tab PO BEDTIME [facility] Last Admin: 06/18/17 21:57 Dose: 2 tab Spironolactone (Aldactone Tab*) 100 mg PO DAILY [facility] Last Admin: 06/19/17 09:02 Dose: 100 mg Tiotropium [place] (Spiriva Cap.Inh*) 1 cap INH DAILY [facility] Last Admin: 06/19/17 09:40 Dose: 1 cap Tramadol HCl (Ultram*) 50 mg PO Q6H PRN PRN Reason: PAIN Last Admin: 06/19/17 04:23 Dose: 50 mg Trazodone HCl (Desyrel Tab*) 100 mg PO BEDTIME LIYAH Last Admin: 06/18/17 21:03 Dose: 100 mg Warfarin Sodium (Coumadin Tab(*)) 5 mg PO DAILY@1700 [facility] PRN Reason: Protocol Vital Signs - 8 hr 06/19/17 06/19/17 06/19/17 04:23 04:26 07:46 Temperature 97.3 F 97.5 F Pulse Rate 87 81 Respiratory 20 16 20 Rate Blood Pressure 102/77 123/78 (mmHg) O2 Sat by Pulse 100 94 Oximetry 06/19/17 06/19/17 06/19/17 08:30 09:10 09:40 Temperature Pulse Rate 88 Respiratory 18 20 18 Rate Blood Pressure (mmHg) O2 Sat by Pulse 96 Oximetry Oxygen Devices in Use Now: Nasal Cannula - at 4l Appearance: 61 yo obese F in NAD, AAOx3 Eyes: No Scleral Icterus, PERRLA Ears/Nose/Mouth/Throat: NL Teeth, Lips, Gums, Mucous Membranes Moist Neck: NL Appearance and Movements; NL JVP, Trachea Midline Respiratory: Symmetrical Chest Expansion and Respiratory Effort, - - bibasiliar crackles Cardiovascular: - - irregular Abdominal: NL Sounds; No Tenderness; No Distention, No Hepatosplenomegaly Lymphatic: No Cervical Adenopathy Extremities: No Clubbing, Cyanosis, - - nonpitting pedeal edema +1 b/l Skin: No Rash or Ulcers, No Nodules or Sclerosis Neurological: Alert and Oriented x 3, NL Muscle Strength and Tone Result Diagrams: 06/19/17 08:15 06/18/17 08:14 Additional Lab and Data: Lab Results 06/15/17 06/15/17 06/15/17 Range/Units 22:20 22:20 22:20 WBC (3.5-10.8) 10^3/ul RBC (4.0-5.4) 10^6/ul Hgb (12.0-16.0) g/dl Hct (35-47) % MCV (80-97) fL MCH (27-31) pg MCHC (31-36) g/dl RDW (10.5-15) % Plt Count (150-450) 10^3/ul MPV (7.4-10.4) um3 Neut % (Auto) (38-83) % Lymph % (Auto) (25-47) % [place] % (Auto) (1-9) % Eos % (Auto) (0-6) % Baso % (Auto) (0-2) % Absolute Neuts (auto) (1.5-7.7) 10^3/ul Absolute Lymphs (auto) (1.0-4.8) 10^3/ul Absolute Monos (auto) (0-0.8) 10^3/ul Absolute Eos (auto) (0-0.6) 10^3/ul Absolute Basos (auto) (0-0.2) 10^3/ul Absolute Nucleated RBC 10^3/ul Nucleated RBC % INR (Anticoag Therapy) 1.06 H (0.77-1.02) APTT 29.0 (26.0-36.3) seconds D-Dimer, Quantitative 605 H (Less Than 230) ng/mL Sodium 140 (133-145) mmol/L Potassium 4.1 (3.5-5.0) mmol/L Chloride 101 (101-111) mmol/L Carbon Dioxide 34 H (22-32) mmol/L Anion Gap 5 (2-11) mmol/L BUN 28 H (6-24) mg/dL Creatinine 1.51 H (0.51-0.95) mg/dL Est GFR ( Amer) 45.1 (>60) Est GFR (Non-Af Amer) 35.0 (>60) BUN/Creatinine Ratio 18.5 (8-20) Glucose 104 H (70-100) mg/dL Lactic Acid (0.5-2.0) mmol/L Calcium 8.7 (8.6-10.3) mg/dL Total Bilirubin 0.40 (0.2-1.0) mg/dL AST 7 L (13-39) U/L ALT 8 (7-52) U/L Alkaline Phosphatase 76 (34-104) U/L Total Creatine Kinase 37 (10-223) U/L CK-MB (CK-2) 1.1 (0.6-6.3) ng/mL Troponin I 0.02 (<0.04) ng/mL C-Reactive Protein 93.11 H (< 5.00) mg/L B-Natriuretic Peptide 368 H ( - 100) pg/mL Total Protein 6.6 (6.4-8.9) g/dL Albumin 3.3 (3.2-5.2) g/dL Globulin 3.3 (2-4) g/dL Albumin/Globulin Ratio 1.0 (1-3) Influenza A (Rapid) (Negative) Influenza B (Rapid) (Negative) 06/15/17 06/15/17 06/15/17 Range/Units 22:20 22:20 22:42 WBC 6.5 (3.5-10.8) 10^3/ul RBC 4.09 (4.0-5.4) 10^6/ul Hgb 10.8 L (12.0-16.0) g/dl Hct 33 L (35-47) % MCV 82 (80-97) fL MCH 26 L (27-31) pg MCHC 32 (31-36) g/dl RDW 19 H (10.5-15) % Plt Count 205 (150-450) 10^3/ul MPV 9 (7.4-10.4) um3 Neut % (Auto) 74.3 (38-83) % Lymph % (Auto) 16.4 L (25-47) % [place] % (Auto) 7.7 (1-9) % Eos % (Auto) 0.9 (0-6) % Baso % (Auto) 0.7 (0-2) % Absolute Neuts (auto) 4.8 (1.5-7.7) 10^3/ul Absolute Lymphs (auto) 1.1 (1.0-4.8) 10^3/ul Absolute Monos (auto) 0.5 (0-0.8) 10^3/ul Absolute Eos (auto) 0.1 (0-0.6) 10^3/ul Absolute Basos (auto) 0 (0-0.2) 10^3/ul Absolute Nucleated RBC 0.12 10^3/ul Nucleated RBC % 1.8 INR (Anticoag Therapy) (0.77-1.02) APTT (26.0-36.3) seconds D-Dimer, Quantitative (Less Than 230) ng/mL Sodium (133-145) mmol/L Potassium (3.5-5.0) mmol/L Chloride (101-111) mmol/L Carbon Dioxide (22-32) mmol/L Anion Gap (2-11) mmol/L BUN (6-24) mg/dL Creatinine (0.51-0.95) mg/dL Est GFR ( Amer) (>60) Est GFR (Non-Af Amer) (>60) BUN/Creatinine Ratio (8-20) Glucose (70-100) mg/dL Lactic Acid 0.8 (0.5-2.0) mmol/L Calcium (8.6-10.3) mg/dL Total Bilirubin (0.2-1.0) mg/dL AST (13-39) U/L ALT (7-52) U/L Alkaline Phosphatase (34-104) U/L Total Creatine Kinase (10-223) U/L CK-MB (CK-2) (0.6-6.3) ng/mL Troponin I (<0.04) ng/mL C-Reactive Protein (< 5.00) mg/L B-Natriuretic Peptide ( - 100) pg/mL Total Protein (6.4-8.9) g/dL Albumin (3.2-5.2) g/dL Globulin (2-4) g/dL Albumin/Globulin Ratio (1-3) Influenza A (Rapid) Negative (Negative) Influenza B (Rapid) Negative (Negative) Microbiology and Other Data: Microbiology 06/16/17 01:30 Urine Culture - Final Urine Assess/Plan/Problems-Billing Assessment: Ms. Robledo is a 61 yo female with a PMH of afib on Eliquis, systolic/diastolic HF, HTN, DM2, FRANCIS, COPD, lymphoma, CKD 3, and depression and anxiety who presented to the ED with gradually worsening SOB for 2 weeks; CTA shows bilateral pulmonary emboli. - Patient Problems (1) Pulmonary embolism with acute cor pulmonale Comment: CTA shows moderately large burden of bilateral acute pulmonary emboli Patient with Eliquis failure, cont heparin gtt at this time per oncology, coumadin started on 06/19/16, pt needs INR>2 x 48H with heparin gtt overlap prior to d/c Appreciate heme/onc consult Echo shows EF 35-40% and right ventricular function is mildly to moderately reduced with RV moderately dilated. Continue O2, careful monitoring of fluid status (2) History of lymphoma Comment: Recurrence of mantle cell lymphoma on FNA of R supraclavicular LN, detalied dx pending Appreciate heme/onc consult (3) COPD (chronic obstructive pulmonary disease) Comment: in mild exacerbation, cont prednisone for increased SOB and wheezing, standing nebulizers (4) Systolic and diastolic CHF, chronic Comment: Euvolemic, creat increased after attempted diuresins on 06/18/16 Previous EF 20-25%, now 35-40% and RV strain Continue carvedilol cont home torsemide Daily weights, I/O (5) Atrial fibrillation with RVR Comment: Now rate controlled Continue amiodarone and carvedilol (6) CKD (chronic kidney disease), stage III Comment: Acute on chronic process, wors3e with doiuresis, holding BERNARDINO, monitor Creatinine baseline 1.0-1.3 (7) FRANCIS (obstructive sleep apnea) Comment: Home CPAP out of use for past few weeks as it is not working Offer hospital CPAP Will need f/u with PCP to resolve home CPAP issue (8) Hypertension Comment: Normotensive Continue carvedilol, lisinopril, spironolactone with hold parameters Torsemide Status and Disposition: Inpatient admission. Extended LOS for complex medical issues.
[2017-06-19] MEDS: Warfarin TAB(*) 5 MG PO SCH (18:24)
[2017-06-19] MEDS: QUEtiapine TAB* 300 MG PO SCH (21:05)
[2017-06-19] MEDS: Torsemide TAB* 20 MG PO SCH (21:06)
[2017-06-19] MEDS: traZODone TAB* 100 MG PO SCH (21:06)
[2017-06-19] MEDS: QUEtiapine TAB* 100 MG PO SCH (21:06)
[2017-06-19] MEDS: Senna TAB PO SCH (21:07)
[2017-06-19] MEDS: Nicotine Patch Removal NOTE PATCH OFF SCH (21:14)
[2017-06-20] MEDS: Albuterol 2.5 MG/3 ML NEB.SOL* (0.083%) INH SCH ×2 (00:58→08:53)
[2017-06-20] MEDS: traMADol TAB* 50 MG PO PRN ×4 (02:59→21:56)
[2017-06-20] MEDS: Benzonatate CAP* 100 MG PO PRN ×2 (03:00→21:53)
[2017-06-20 06:15] LABS: ABS Basophils 0.1 10^3/ul (0-0.2); ABS Eosinophils 0 10^3/ul (0-0.6); ABS Lymphocytes 0.6 10^3/ul (1.0-4.8); ABS Monocytes 0.3 10^3/ul (0-0.8); ABS Neutrophils 4.6 10^3/ul (1.5-7.7); ABS Nucleated RBC 0 10^3/ul; Eosinophil % 0.4 % (0-6); Hematocrit 31 % (35-47); Hemoglobin 9.7 g/dl (12.0-16.0); Lymphocyte % 10.3 % (25-47); Mean Corpuscular HGB Conc 32 g/dl (31-36); Mean Corpuscular Hemoglobin 26 pg (27-31); Mean Corpuscular Volume 82 fL (80-97); Mean Platelet Volume 9 um3 (7.4-10.4); Nucleated Red Blood Cells % 0.1; Platelet Count 196 10^3/ul (150-450); Red Blood Count 3.75 10^6/ul (4.0-5.4); Red Cell Distribution Width 19 % (10.5-15); White Blood Count 5.7 10^3/ul (3.5-10.8)
[2017-06-20 06:33] LABS: EGFR Non-African American 35.9 (>60)
[2017-06-20] MEDS: Spironolactone TAB* 25 MG PO SCH (08:35)
[2017-06-20] MEDS: Nicotine PATCH 14 MG/24 HR* PATCH TRANSDERM SCH (08:36)
[2017-06-20] MEDS: predniSONE TAB* 20 MG PO SCH (08:36)
[2017-06-20] MEDS: Omeprazole CAP* 20 MG PO SCH (08:36)
[2017-06-20] MEDS: Multivitamins/Minerals TAB PO SCH (08:36)
[2017-06-20] MEDS: Ferrous Sulfate TAB* 325 MG PO SCH (08:36)
[2017-06-20] MEDS: Carvedilol TAB* 25 MG PO SCH ×2 (08:36→21:53)
[2017-06-20] MEDS: Potassium Chlor TAB* 20 MEQ TAB.ER PO SCH (08:36)
[2017-06-20] MEDS: Atorvastatin* 20 MG TAB PO SCH (08:36)
[2017-06-20] MEDS: Docusate CAP* 100 MG PO SCH ×2 (08:36→21:56)
[2017-06-20] MEDS: Torsemide TAB* 20 MG PO SCH ×2 (08:36→21:53)
[2017-06-20] MEDS: Tiotropium CAP.INH* CAP.INH/18 MCG (USE ORDER SET !) INH SCH (08:43)
[2017-06-20] MEDS: Mometasone/Formoter 100/5 MDI INH SCH ×2 (08:43→20:03)
[2017-06-20] MEDS: ALPRAZolam TAB* 0.5 MG PO PRN ×2 (08:46→21:57)
[2017-06-20] MEDS: Fluticasone NASAL SPRAY 50MCG* 16 gm SPRAY BTL BOTH NARES SCH (09:02)
[2017-06-20] MEDS ORDERED: Albuterol/Ipratropium NEB.SOL* Albuterol 2.5 MG/Ipratropium 0.5 MG 3 ML INH PRN (09:52)
--- NOTE | 2017-06-20 09:56 | PN ---
Subjective Date of Service: 06/20/17 Interval History: Wheezing today, otherwise no complaints. Family History: Unchanged from Admission Social History: Unchanged from Admission Past Medical History: Unchanged from Admission Objective Active Medications: Acetaminophen (Tylenol Tab*) 650 mg PO Q6H PRN PRN Reason: FEVER/PAIN Last Admin: 06/19/17 09:03 Dose: 650 mg Albuterol (Ventolin Hfa Inhaler*) 2 puff INH Q4H PRN PRN Reason: SOB/WHEEZING Last Admin: 06/17/17 08:24 Dose: 2 puff Albuterol (Ventolin 2.5 Mg/3 Ml Neb.Lois*) 2.5 mg INH [id number] AWAKE [facility] Last Admin: 06/20/17 08:53 Dose: Not Given Alprazolam (Xanax Tab*) 0.5 mg PO TID PRN PRN Reason: ANXIETY Last Admin: 06/20/17 08:46 Dose: 0.5 mg Atorvastatin Calcium (Lipitor*) 20 mg PO DAILY [facility] Last Admin: 06/20/17 08:36 Dose: 20 mg Benzonatate (Tessalon Cap*) 200 mg PO Q6H PRN PRN Reason: COUGH Last Admin: 06/20/17 03:00 Dose: 200 mg Carvedilol (Coreg Tab*) 50 mg PO BID [facility] Last Admin: 06/20/17 08:36 Dose: 50 mg Docusate Sodium (Colace Cap*) 100 mg PO BID [facility] Last Admin: 06/20/17 08:36 Dose: 100 mg Ferrous Sulfate (Ferrous Sulfate Tab*) 325 mg PO DAILY [facility] Last Admin: 06/20/17 08:36 Dose: 325 mg Fluticasone Propionate (Flonase Nasal [place] 50mcg*) 2 spray BOTH NARES DAILY [facility] Last Admin: 06/20/17 09:02 Dose: Not Given Heparin Sodium (Porcine) (Heparin Vial(*)) 0 units IV .PER PROTOCOL LIYAH PRN Reason: Protocol Last Admin: 06/17/17 04:48 Dose: 3,700 units Heparin Sodium/Dextrose (Heparin Drip 25,000 Units(*)) 25,000 units in 500 mls @ 0 mls/hr IVPB .PER RATE LIYAH; Per Protocol PRN Reason: Protocol Last Admin: 06/19/17 07:30 Dose: 36 mls/hr Melatonin (Melatonin (Nf)) 3 mg PO BEDTIME PRN; Protocol PRN Reason: Sleep Mometasone Furoate/Formoterol Fumar (Dulera 100/5 Mdi*) 1 puff INH BID [facility] Last Admin: 06/20/17 08:43 Dose: 1 puff Multivitamins/Minerals (Theragran/Minerals Tab*) 1 tab PO DAILY [facility] Last Admin: 06/20/17 08:36 Dose: 1 tab Nicotine (Nicotine Inhaler*) 10 mg INH Q2H PRN PRN Reason: CRAVINGS Nicotine (Nicotine Patch 14 Mg/24 Hr*) 1 patch TRANSDERM DAILY [facility] Last Admin: 06/20/17 08:36 Dose: 1 patch Omeprazole (Prilosec Cap*) 20 mg PO DAILY@0730 [facility] Last Admin: 06/20/17 08:36 Dose: 20 mg Ondansetron HCl (Zofran Inj*) 4 mg IV Q6H PRN PRN Reason: NAUSEA Pharmacy Profile Note (Nicotine Patch Removal Note*) 1 note PATCH OFF 2100 [facility] Last Admin: 06/19/17 21:14 Dose: 1 note Potassium Chloride (Klor Con Er Tab*) 20 meq PO DAILY WITH MEAL [facility] Last Admin: 06/20/17 08:36 Dose: 20 meq Prednisone (Deltasone Tab*) 40 mg PO DAILY [facility] Last Admin: 06/20/17 08:36 Dose: 40 mg Quetiapine Fumarate (Seroquel Tab*) 600 mg PO BEDTIME [facility] Last Admin: 06/19/17 21:05 Dose: 600 mg Quetiapine Fumarate (Seroquel Tab*) 200 mg PO BEDTIME [facility] Last Admin: 06/19/17 21:06 Dose: 200 mg Senna (Senokot Tab*) 2 tab PO BEDTIME [facility] Last Admin: 06/19/17 21:07 Dose: 2 tab Spironolactone (Aldactone Tab*) 100 mg PO DAILY [facility] Last Admin: 06/20/17 08:35 Dose: 100 mg Tiotropium [place] (Spiriva Cap.Inh*) 1 cap INH DAILY [facility] Last Admin: 06/20/17 08:43 Dose: 1 cap Torsemide (Demadex*) 20 mg PO BID [facility] Last Admin: 06/20/17 08:36 Dose: 20 mg Tramadol HCl (Ultram*) 50 mg PO Q6H PRN PRN Reason: PAIN Last Admin: 06/20/17 08:46 Dose: 50 mg Trazodone HCl (Desyrel Tab*) 100 mg PO BEDTIME [facility] Last Admin: 06/19/17 21:06 Dose: 100 mg Warfarin Sodium (Coumadin Tab(*)) 5 mg PO DAILY@1700 [facility] PRN Reason: Protocol Last Admin: 06/19/17 18:24 Dose: 5 mg Vital Signs - 8 hr 06/20/17 06/20/17 06/20/17 02:59 04:04 05:04 Temperature 98.5 F Pulse Rate 84 Respiratory 18 24 18 Rate Blood Pressure 119/74 (mmHg) O2 Sat by Pulse 98 Oximetry 06/20/17 06/20/17 06/20/17 08:15 08:43 08:46 Temperature 97.5 F Pulse Rate 83 83 Respiratory 20 20 18 Rate Blood Pressure 123/86 (mmHg) O2 Sat by Pulse 93 95 Oximetry 06/20/17 08:54 Temperature Pulse Rate Respiratory Rate Blood Pressure (mmHg) O2 Sat by Pulse 95 Oximetry Oxygen Devices in Use Now: Nasal Cannula - at 4l Appearance: 61 yo obese Fin NAD, aAOx3 Eyes: No Scleral Icterus, PERRLA Ears/Nose/Mouth/Throat: NL Teeth, Lips, Gums, Mucous Membranes Moist Neck: NL Appearance and Movements; NL JVP, Trachea Midline Respiratory: Symmetrical Chest Expansion and Respiratory Effort, - - scattered b /l wheezes Cardiovascular: NL Sounds; No Murmurs; No JVD, RRR Abdominal: NL Sounds; No Tenderness; No Distention, No Hepatosplenomegaly Lymphatic: No Cervical Adenopathy Extremities: No Clubbing, Cyanosis, - - +1 nonpitting pedal edema b/l Skin: No Rash or Ulcers, No Nodules or Sclerosis Neurological: Alert and Oriented x 3, NL Muscle Strength and Tone Result Diagrams: 06/20/17 05:56 06/20/17 05:56 Additional Lab and Data: Lab Results 06/15/17 06/15/17 06/15/17 Range/Units 22:20 22:20 22:20 WBC (3.5-10.8) 10^3/ul RBC (4.0-5.4) 10^6/ul Hgb (12.0-16.0) g/dl Hct (35-47) % MCV (80-97) fL MCH (27-31) pg MCHC (31-36) g/dl RDW (10.5-15) % Plt Count (150-450) 10^3/ul MPV (7.4-10.4) um3 Neut % (Auto) (38-83) % Lymph % (Auto) (25-47) % [place] % (Auto) (1-9) % Eos % (Auto) (0-6) % Baso % (Auto) (0-2) % Absolute Neuts (auto) (1.5-7.7) 10^3/ul Absolute Lymphs (auto) (1.0-4.8) 10^3/ul Absolute Monos (auto) (0-0.8) 10^3/ul Absolute Eos (auto) (0-0.6) 10^3/ul Absolute Basos (auto) (0-0.2) 10^3/ul Absolute Nucleated RBC 10^3/ul Nucleated RBC % INR (Anticoag Therapy) 1.06 H (0.77-1.02) APTT 29.0 (26.0-36.3) seconds D-Dimer, Quantitative 605 H (Less Than 230) ng/mL Sodium 140 (133-145) mmol/L Potassium 4.1 (3.5-5.0) mmol/L Chloride 101 (101-111) mmol/L Carbon Dioxide 34 H (22-32) mmol/L Anion Gap 5 (2-11) mmol/L BUN 28 H (6-24) mg/dL Creatinine 1.51 H (0.51-0.95) mg/dL Est GFR ( Amer) 45.1 (>60) Est GFR (Non-Af Amer) 35.0 (>60) BUN/Creatinine Ratio 18.5 (8-20) Glucose 104 H (70-100) mg/dL Lactic Acid (0.5-2.0) mmol/L Calcium 8.7 (8.6-10.3) mg/dL Total Bilirubin 0.40 (0.2-1.0) mg/dL AST 7 L (13-39) U/L ALT 8 (7-52) U/L Alkaline Phosphatase 76 (34-104) U/L Total Creatine Kinase 37 (10-223) U/L CK-MB (CK-2) 1.1 (0.6-6.3) ng/mL Troponin I 0.02 (<0.04) ng/mL C-Reactive Protein 93.11 H (< 5.00) mg/L B-Natriuretic Peptide 368 H ( - 100) pg/mL Total Protein 6.6 (6.4-8.9) g/dL Albumin 3.3 (3.2-5.2) g/dL Globulin 3.3 (2-4) g/dL Albumin/Globulin Ratio 1.0 (1-3) Influenza A (Rapid) (Negative) Influenza B (Rapid) (Negative) 06/15/17 06/15/17 06/15/17 Range/Units 22:20 22:20 22:42 WBC 6.5 (3.5-10.8) 10^3/ul RBC 4.09 (4.0-5.4) 10^6/ul Hgb 10.8 L (12.0-16.0) g/dl Hct 33 L (35-47) % MCV 82 (80-97) fL MCH 26 L (27-31) pg MCHC 32 (31-36) g/dl RDW 19 H (10.5-15) % Plt Count 205 (150-450) 10^3/ul MPV 9 (7.4-10.4) um3 Neut % (Auto) 74.3 (38-83) % Lymph % (Auto) 16.4 L (25-47) % [place] % (Auto) 7.7 (1-9) % Eos % (Auto) 0.9 (0-6) % Baso % (Auto) 0.7 (0-2) % Absolute Neuts (auto) 4.8 (1.5-7.7) 10^3/ul Absolute Lymphs (auto) 1.1 (1.0-4.8) 10^3/ul Absolute Monos (auto) 0.5 (0-0.8) 10^3/ul Absolute Eos (auto) 0.1 (0-0.6) 10^3/ul Absolute Basos (auto) 0 (0-0.2) 10^3/ul Absolute Nucleated RBC 0.12 10^3/ul Nucleated RBC % 1.8 INR (Anticoag Therapy) (0.77-1.02) APTT (26.0-36.3) seconds D-Dimer, Quantitative (Less Than 230) ng/mL Sodium (133-145) mmol/L Potassium (3.5-5.0) mmol/L Chloride (101-111) mmol/L Carbon Dioxide (22-32) mmol/L Anion Gap (2-11) mmol/L BUN (6-24) mg/dL Creatinine (0.51-0.95) mg/dL Est GFR ( Amer) (>60) Est GFR (Non-Af Amer) (>60) BUN/Creatinine Ratio (8-20) Glucose (70-100) mg/dL Lactic Acid 0.8 (0.5-2.0) mmol/L Calcium (8.6-10.3) mg/dL Total Bilirubin (0.2-1.0) mg/dL AST (13-39) U/L ALT (7-52) U/L Alkaline Phosphatase (34-104) U/L Total Creatine Kinase (10-223) U/L CK-MB (CK-2) (0.6-6.3) ng/mL Troponin I (<0.04) ng/mL C-Reactive Protein (< 5.00) mg/L B-Natriuretic Peptide ( - 100) pg/mL Total Protein (6.4-8.9) g/dL Albumin (3.2-5.2) g/dL Globulin (2-4) g/dL Albumin/Globulin Ratio (1-3) Influenza A (Rapid) Negative (Negative) Influenza B (Rapid) Negative (Negative) Microbiology and Other Data: Microbiology 06/16/17 01:30 Urine Culture - Final Urine Assess/Plan/Problems-Billing Assessment: Ms. Robledo is a 61 yo female with a PMH of afib on Eliquis, systolic/diastolic HF, HTN, DM2, FRANCIS, COPD, lymphoma, CKD 3, and depression and anxiety who presented to the ED with gradually worsening SOB for 2 weeks; CTA shows bilateral pulmonary emboli. - Patient Problems (1) Pulmonary embolism with acute cor pulmonale Comment: CTA shows moderately large burden of bilateral acute pulmonary emboli Patient with Eliquis failure, cont heparin gtt at this time per oncology, coumadin started on 06/19/16, pt needs INR>2 x 48H with heparin gtt overlap prior to d/c Appreciate heme/onc consult Echo shows EF 35-40% and right ventricular function is mildly to moderately reduced with RV moderately dilated. Continue O2, careful monitoring of fluid status (2) History of lymphoma Comment: Recurrence of mantle cell lymphoma on FNA of R supraclavicular LN, detalied dx pending Appreciate heme/onc consult (3) COPD (chronic obstructive pulmonary disease) Comment: in mild exacerbation, cont prednisone for increased SOB and wheezing, nebulizers (4) Systolic and diastolic CHF, chronic Comment: Euvolemic, creat increased after attempted diuresis on 06/18/16 Previous EF 20-25%, now 35-40% and RV strain Continue carvedilol cont home torsemide Daily weights, I/O (5) Atrial fibrillation with RVR Comment: Now rate controlled Continue amiodarone and carvedilol (6) CKD (chronic kidney disease), stage III Comment: Acute on chronic process, worse with diuresis on 06/19/17, holding BERNARDINO, monitor Creatinine baseline 1.0-1.3 (7) FRANCIS (obstructive sleep apnea) Comment: Home CPAP out of use for past few weeks as it is not working Offer hospital CPAP Will need f/u with PCP to resolve home CPAP issue (8) Hypertension Comment: Normotensive Continue carvedilol, spironolactone, torsemide Status and Disposition: Inpatient admission. Extended LOS for complex medical issues.
[2017-06-20] MEDS: Acetaminophen TAB* 325 MG PO PRN (14:22)
[2017-06-20] MEDS: Warfarin TAB(*) 5 MG PO SCH (16:52)
[2017-06-20] MEDS: Heparin DRIP 25,000 UNITS(*) 25,000 UNITS/500 ML BAG IVPB SCH (18:41)
[2017-06-20] MEDS: Senna TAB PO SCH (21:54)
[2017-06-20] MEDS: traZODone TAB* 100 MG PO SCH (21:56)
[2017-06-20] MEDS: QUEtiapine TAB* 100 MG PO SCH (21:57)
[2017-06-20] MEDS: QUEtiapine TAB* 300 MG PO SCH (21:59)
[2017-06-20] MEDS: Nicotine Patch Removal NOTE PATCH OFF SCH (22:16)
[2017-06-21] MEDS: Heparin VIAL(*) 5000 UNITS/ML VIAL (FIVE THOUSAND) IV SCH ×2 (02:07→18:37)
[2017-06-21 06:54] LABS: Hematocrit 32 % (35-47); Hemoglobin 10.4 g/dl (12.0-16.0); Mean Corpuscular HGB Conc 32 g/dl (31-36); Mean Corpuscular Hemoglobin 26 pg (27-31); Mean Corpuscular Volume 82 fL (80-97); Mean Platelet Volume 9 um3 (7.4-10.4); Platelet Count 200 10^3/ul (150-450); Red Blood Count 3.96 10^6/ul (4.0-5.4); Red Cell Distribution Width 19 % (10.5-15); White Blood Count 5.6 10^3/ul (3.5-10.8)
[2017-06-21 07:06] LABS: INR 1.02 (0.77-1.02)
[2017-06-21 07:10] LABS: EGFR Non-African American 36.4 (>60)
[2017-06-21] MEDS: Mometasone/Formoter 100/5 MDI INH SCH ×2 (08:15→20:26)
[2017-06-21] MEDS: Tiotropium CAP.INH* CAP.INH/18 MCG (USE ORDER SET !) INH SCH (08:15)
[2017-06-21] MEDS: Carvedilol TAB* 25 MG PO SCH ×2 (09:17→22:07)
[2017-06-21] MEDS: Omeprazole CAP* 20 MG PO SCH (09:18)
[2017-06-21] MEDS: Atorvastatin* 20 MG TAB PO SCH (09:18)
[2017-06-21] MEDS: Docusate CAP* 100 MG PO SCH ×2 (09:18→22:07)
[2017-06-21] MEDS: Multivitamins/Minerals TAB PO SCH (09:18)
[2017-06-21] MEDS: predniSONE TAB* 20 MG PO SCH (09:18)
[2017-06-21] MEDS: Potassium Chlor TAB* 20 MEQ TAB.ER PO SCH (09:18)
[2017-06-21] MEDS: Ferrous Sulfate TAB* 325 MG PO SCH (09:18)
[2017-06-21] MEDS: Nicotine PATCH 14 MG/24 HR* PATCH TRANSDERM SCH (09:19)
[2017-06-21] MEDS: Spironolactone TAB* 25 MG PO SCH (09:22)
[2017-06-21] MEDS: ALPRAZolam TAB* 0.5 MG PO PRN ×2 (09:26→22:14)
[2017-06-21] MEDS: Torsemide TAB* 20 MG PO SCH ×2 (09:26→22:07)
[2017-06-21] MEDS: traMADol TAB* 50 MG PO PRN ×2 (09:26→17:17)
--- NOTE | 2017-06-21 10:42 | PN ---
Progress Note - Progress Note Date of Service: 06/21/17 SOAP: Subjective: []Feeling OK. No complaints. Tolerating coumadin, denies questions. Aware she will need tx. for lymphoma. If needs a bone marrow biopsy, "I want to be knocked out." Medications: Acetaminophen (Tylenol Tab*) 650 mg PO Q6H PRN PRN Reason: FEVER/PAIN Last Admin: 06/20/17 14:22 Dose: 650 mg Albuterol (Ventolin Hfa Inhaler*) 2 puff INH Q4H PRN PRN Reason: SOB/WHEEZING Last Admin: 06/17/17 08:24 Dose: 2 puff Albuterol/Ipratropium (Duoneb (Albuterol 2.5 Mg/Ipratropium 0.5 Mg)) 1 neb INH Q4H PRN PRN Reason: SOB/WHEEZING Alprazolam (Xanax Tab*) 0.5 mg PO TID PRN PRN Reason: ANXIETY Last Admin: 06/21/17 09:26 Dose: 0.5 mg Atorvastatin Calcium (Lipitor*) 20 mg PO DAILY [facility] Last Admin: 06/21/17 09:18 Dose: 20 mg Benzonatate (Tessalon Cap*) 200 mg PO Q6H PRN PRN Reason: COUGH Last Admin: 06/20/17 21:53 Dose: 200 mg Carvedilol (Coreg Tab*) 50 mg PO BID [facility] Last Admin: 06/21/17 09:17 Dose: 50 mg Docusate Sodium (Colace Cap*) 100 mg PO BID [facility] Last Admin: 06/21/17 09:18 Dose: 100 mg Ferrous Sulfate (Ferrous Sulfate Tab*) 325 mg PO DAILY [facility] Last Admin: 06/21/17 09:18 Dose: 325 mg Fluticasone Propionate (Flonase Nasal [place] 50mcg*) 2 spray BOTH NARES DAILY [facility] Last Admin: 06/21/17 12:16 Dose: Not Given Heparin Sodium (Porcine) (Heparin Vial(*)) 0 units IV .PER PROTOCOL LIYAH PRN Reason: Protocol Last Admin: 06/21/17 02:07 Dose: 3,700 units Heparin Sodium/Dextrose (Heparin Drip 25,000 Units(*)) 25,000 units in 500 mls @ 0 mls/hr IVPB .PER RATE LIYAH; Per Protocol PRN Reason: Protocol Last Admin: 06/20/17 18:41 Dose: 36 mls/hr Melatonin (Melatonin (Nf)) 3 mg PO BEDTIME PRN; Protocol PRN Reason: Sleep Mometasone Furoate/Formoterol Fumar (Dulera 100/5 Mdi*) 1 puff INH BID [facility] Last Admin: 06/21/17 08:15 Dose: 1 puff Multivitamins/Minerals (Theragran/Minerals Tab*) 1 tab PO DAILY [facility] Last Admin: 06/21/17 09:18 Dose: 1 tab Nicotine (Nicotine Inhaler*) 10 mg INH Q2H PRN PRN Reason: CRAVINGS Nicotine (Nicotine Patch 14 Mg/24 Hr*) 1 patch TRANSDERM DAILY [facility] Last Admin: 06/21/17 09:19 Dose: 1 patch Omeprazole (Prilosec Cap*) 20 mg PO DAILY@0730 [facility] Last Admin: 06/21/17 09:18 Dose: 20 mg Ondansetron HCl (Zofran Inj*) 4 mg IV Q6H PRN PRN Reason: NAUSEA Pharmacy Profile Note (Nicotine Patch Removal Note*) 1 note PATCH OFF 2100 [facility] Last Admin: 06/20/17 22:16 Dose: 1 note Potassium Chloride (Klor Con Er Tab*) 20 meq PO DAILY WITH MEAL [facility] Last Admin: 06/21/17 09:18 Dose: 20 meq Prednisone (Deltasone Tab*) 40 mg PO DAILY [facility] Last Admin: 06/21/17 09:18 Dose: 40 mg Quetiapine Fumarate (Seroquel Tab*) 600 mg PO BEDTIME [facility] Last Admin: 06/20/17 21:59 Dose: 600 mg Quetiapine Fumarate (Seroquel Tab*) 200 mg PO BEDTIME [facility] Last Admin: 06/20/17 21:57 Dose: 200 mg Senna (Senokot Tab*) 2 tab PO BEDTIME [facility] Last Admin: 06/20/17 21:54 Dose: 2 tab Spironolactone (Aldactone Tab*) 100 mg PO DAILY [facility] Last Admin: 06/21/17 09:22 Dose: 100 mg Tiotropium [place] (Spiriva Cap.Inh*) 1 cap INH DAILY [facility] Last Admin: 06/21/17 08:15 Dose: 1 cap Torsemide (Demadex*) 20 mg PO BID [facility] Last Admin: 06/21/17 09:26 Dose: 20 mg Tramadol HCl (Ultram*) 50 mg PO Q6H PRN PRN Reason: PAIN Last Admin: 06/21/17 09:26 Dose: 50 mg Trazodone HCl (Desyrel Tab*) 100 mg PO BEDTIME [facility] Last Admin: 06/20/17 21:56 Dose: 100 mg Warfarin Sodium (Coumadin Tab(*)) 5 mg PO DAILY@1700 [facility] PRN Reason: Protocol Last Admin: 06/20/17 16:52 Dose: 5 mg Objective: [] Vital Signs Temp Pulse Resp BP Pulse Ox 97.4 F 90 20 109/59 94 06/21/17 07:43 06/21/17 08:15 06/21/17 09:26 06/21/17 09:15 06/21/17 08:00 A&Ox3, EOMI, SHER HRR, S1S2 LS wheezey throughout Laboratory Results - last 24 hr 06/20/17 06/21/17 06/21/17 23:16 06:44 06:44 WBC 5.6 RBC 3.96 L Hgb 10.4 L Hct 32 L MCV 82 MCH 26 L MCHC 32 RDW 19 H Plt Count 200 MPV 9 INR (Anticoag Therapy) 1.02 APTT 41.0 H Sodium Potassium Chloride Carbon Dioxide Anion Gap BUN Creatinine Est GFR ( Amer) Est GFR (Non-Af Amer) BUN/Creatinine Ratio Glucose Calcium 06/21/17 06/21/17 06:44 09:31 WBC RBC Hgb Hct MCV MCH MCHC RDW Plt Count MPV INR (Anticoag Therapy) APTT 38.0 H Sodium 137 Potassium 4.1 Chloride 99 L Carbon Dioxide 33 H Anion Gap 5 BUN 51 H Creatinine 1.46 H Est GFR ( Amer) 46.8 Est GFR (Non-Af Amer) 36.4 BUN/Creatinine Ratio 34.9 H Glucose 156 H Calcium 9.4 Assessment: []61 yo female presented 06/16/17 with SOB and found to have PE with work-up revealing adenopathy and biopsy consistent with recurrent mantle cell lymphoma. Currently on hep. gtt. with coumadin, INR 1. Plan: []1. No change in coumadin for now, expect INR rise over next several days 2. Hep gtt. per hospitalist FU Dr. Garbo upon d/c to determine best tx. for recurrent disease
[2017-06-21] MEDS: Fluticasone NASAL SPRAY 50MCG* 16 gm SPRAY BTL BOTH NARES SCH (12:16)
[2017-06-21] MEDS: Warfarin TAB(*) 5 MG PO SCH (17:17)
--- NOTE | 2017-06-21 19:03 | PN ---
Subjective Date of Service: 06/21/17 Interval History: Pt is feeling poorly. She states she is still coughing, bringing up clear mucous that is occasionally streaked with blood. She also c/o L rib pain, neck pain and mild headache. Family History: Unchanged from Admission Social History: Unchanged from Admission Past Medical History: Unchanged from Admission Objective Active Medications: Acetaminophen (Tylenol Tab*) 650 mg PO Q6H PRN PRN Reason: FEVER/PAIN Last Admin: 06/20/17 14:22 Dose: 650 mg Albuterol (Ventolin Hfa Inhaler*) 2 puff INH Q4H PRN PRN Reason: SOB/WHEEZING Last Admin: 06/17/17 08:24 Dose: 2 puff Albuterol/Ipratropium (Duoneb (Albuterol 2.5 Mg/Ipratropium 0.5 Mg)) 1 neb INH Q4H PRN PRN Reason: SOB/WHEEZING Alprazolam (Xanax Tab*) 0.5 mg PO TID PRN PRN Reason: ANXIETY Last Admin: 06/21/17 09:26 Dose: 0.5 mg Atorvastatin Calcium (Lipitor*) 20 mg PO DAILY [facility] Last Admin: 06/21/17 09:18 Dose: 20 mg Benzonatate (Tessalon Cap*) 200 mg PO Q6H PRN PRN Reason: COUGH Last Admin: 06/20/17 21:53 Dose: 200 mg Carvedilol (Coreg Tab*) 50 mg PO BID [facility] Last Admin: 06/21/17 09:17 Dose: 50 mg Docusate Sodium (Colace Cap*) 100 mg PO BID [facility] Last Admin: 06/21/17 09:18 Dose: 100 mg Ferrous Sulfate (Ferrous Sulfate Tab*) 325 mg PO DAILY [facility] Last Admin: 06/21/17 09:18 Dose: 325 mg Fluticasone Propionate (Flonase Nasal [place] 50mcg*) 2 spray BOTH NARES DAILY [facility] Last Admin: 06/21/17 12:16 Dose: Not Given Heparin Sodium (Porcine) (Heparin Vial(*)) 0 units IV .PER PROTOCOL [facility] PRN Reason: Protocol Last Admin: 06/21/17 18:37 Dose: 6,900 units Heparin Sodium/Dextrose (Heparin Drip 25,000 Units(*)) 25,000 units in 500 mls @ 0 mls/hr IVPB .PER RATE LIYAH; Per Protocol PRN Reason: Protocol Last Admin: 06/20/17 18:41 Dose: 36 mls/hr Melatonin (Melatonin (Nf)) 3 mg PO BEDTIME PRN; Protocol PRN Reason: Sleep Mometasone Furoate/Formoterol Fumar (Dulera 100/5 Mdi*) 1 puff INH BID [facility] Last Admin: 06/21/17 08:15 Dose: 1 puff Multivitamins/Minerals (Theragran/Minerals Tab*) 1 tab PO DAILY [facility] Last Admin: 06/21/17 09:18 Dose: 1 tab Nicotine (Nicotine Inhaler*) 10 mg INH Q2H PRN PRN Reason: CRAVINGS Nicotine (Nicotine Patch 14 Mg/24 Hr*) 1 patch TRANSDERM DAILY [facility] Last Admin: 06/21/17 09:19 Dose: 1 patch Omeprazole (Prilosec Cap*) 20 mg PO DAILY@0730 [facility] Last Admin: 06/21/17 09:18 Dose: 20 mg Ondansetron HCl (Zofran Inj*) 4 mg IV Q6H PRN PRN Reason: NAUSEA Pharmacy Profile Note (Nicotine Patch Removal Note*) 1 note PATCH OFF 2100 [facility] Last Admin: 06/20/17 22:16 Dose: 1 note Potassium Chloride (Klor Con Er Tab*) 20 meq PO DAILY WITH MEAL [facility] Last Admin: 06/21/17 09:18 Dose: 20 meq Prednisone (Deltasone Tab*) 40 mg PO DAILY [facility] Last Admin: 06/21/17 09:18 Dose: 40 mg Quetiapine Fumarate (Seroquel Tab*) 600 mg PO BEDTIME [facility] Last Admin: 06/20/17 21:59 Dose: 600 mg Quetiapine Fumarate (Seroquel Tab*) 200 mg PO BEDTIME [facility] Last Admin: 06/20/17 21:57 Dose: 200 mg Senna (Senokot Tab*) 2 tab PO BEDTIME [facility] Last Admin: 06/20/17 21:54 Dose: 2 tab Spironolactone (Aldactone Tab*) 100 mg PO DAILY [facility] Last Admin: 06/21/17 09:22 Dose: 100 mg Tiotropium [place] (Spiriva Cap.Inh*) 1 cap INH DAILY [facility] Last Admin: 06/21/17 08:15 Dose: 1 cap Torsemide (Demadex*) 20 mg PO BID [facility] Last Admin: 06/21/17 09:26 Dose: 20 mg Tramadol HCl (Ultram*) 50 mg PO Q6H PRN PRN Reason: PAIN Last Admin: 06/21/17 17:17 Dose: 50 mg Trazodone HCl (Desyrel Tab*) 100 mg PO BEDTIME [facility] Last Admin: 06/20/17 21:56 Dose: 100 mg Warfarin Sodium (Coumadin Tab(*)) 5 mg PO DAILY@1700 [facility] PRN Reason: Protocol Last Admin: 06/21/17 17:17 Dose: 5 mg Vital Signs - 8 hr 06/21/17 06/21/17 06/21/17 11:15 15:40 15:44 Temperature 97.8 F 98.3 F Pulse Rate 74 77 Respiratory 22 16 Rate Blood Pressure 107/62 131/80 (mmHg) O2 Sat by Pulse 94 100 100 Oximetry 06/21/17 06/21/17 17:17 17:18 Temperature Pulse Rate Respiratory 20 18 Rate Blood Pressure (mmHg) O2 Sat by Pulse Oximetry Oxygen Devices in Use Now: Nasal Cannula Appearance: Middle aged morbidly obese female lying in bed, NAD Eyes: No Scleral Icterus Ears/Nose/Mouth/Throat: Mucous Membranes Moist Respiratory: Symmetrical Chest Expansion and Respiratory Effort, Clear to Auscultation Cardiovascular: NL Sounds; No Murmurs; No JVD, RRR Abdominal: NL Sounds; No Tenderness; No Distention Extremities: No Clubbing, Cyanosis Skin: No Nodules or Sclerosis Neurological: Alert and Oriented x 3 Result Diagrams: 06/21/17 06:44 06/21/17 06:44 Additional Lab and Data: Lab Results 06/15/17 06/15/17 06/15/17 Range/Units 22:20 22:20 22:20 WBC (3.5-10.8) 10^3/ul RBC (4.0-5.4) 10^6/ul Hgb (12.0-16.0) g/dl Hct (35-47) % MCV (80-97) fL MCH (27-31) pg MCHC (31-36) g/dl RDW (10.5-15) % Plt Count (150-450) 10^3/ul MPV (7.4-10.4) um3 Neut % (Auto) (38-83) % Lymph % (Auto) (25-47) % [place] % (Auto) (1-9) % Eos % (Auto) (0-6) % Baso % (Auto) (0-2) % Absolute Neuts (auto) (1.5-7.7) 10^3/ul Absolute Lymphs (auto) (1.0-4.8) 10^3/ul Absolute Monos (auto) (0-0.8) 10^3/ul Absolute Eos (auto) (0-0.6) 10^3/ul Absolute Basos (auto) (0-0.2) 10^3/ul Absolute Nucleated RBC 10^3/ul Nucleated RBC % INR (Anticoag Therapy) 1.06 H (0.77-1.02) APTT 29.0 (26.0-36.3) seconds D-Dimer, Quantitative 605 H (Less Than 230) ng/mL Sodium 140 (133-145) mmol/L Potassium 4.1 (3.5-5.0) mmol/L Chloride 101 (101-111) mmol/L Carbon Dioxide 34 H (22-32) mmol/L Anion Gap 5 (2-11) mmol/L BUN 28 H (6-24) mg/dL Creatinine 1.51 H (0.51-0.95) mg/dL Est GFR ( Amer) 45.1 (>60) Est GFR (Non-Af Amer) 35.0 (>60) BUN/Creatinine Ratio 18.5 (8-20) Glucose 104 H (70-100) mg/dL Lactic Acid (0.5-2.0) mmol/L Calcium 8.7 (8.6-10.3) mg/dL Total Bilirubin 0.40 (0.2-1.0) mg/dL AST 7 L (13-39) U/L ALT 8 (7-52) U/L Alkaline Phosphatase 76 (34-104) U/L Total Creatine Kinase 37 (10-223) U/L CK-MB (CK-2) 1.1 (0.6-6.3) ng/mL Troponin I 0.02 (<0.04) ng/mL C-Reactive Protein 93.11 H (< 5.00) mg/L B-Natriuretic Peptide 368 H ( - 100) pg/mL Total Protein 6.6 (6.4-8.9) g/dL Albumin 3.3 (3.2-5.2) g/dL Globulin 3.3 (2-4) g/dL Albumin/Globulin Ratio 1.0 (1-3) Influenza A (Rapid) (Negative) Influenza B (Rapid) (Negative) 06/15/17 06/15/17 06/15/17 Range/Units 22:20 22:20 22:42 WBC 6.5 (3.5-10.8) 10^3/ul RBC 4.09 (4.0-5.4) 10^6/ul Hgb 10.8 L (12.0-16.0) g/dl Hct 33 L (35-47) % MCV 82 (80-97) fL MCH 26 L (27-31) pg MCHC 32 (31-36) g/dl RDW 19 H (10.5-15) % Plt Count 205 (150-450) 10^3/ul MPV 9 (7.4-10.4) um3 Neut % (Auto) 74.3 (38-83) % Lymph % (Auto) 16.4 L (25-47) % [place] % (Auto) 7.7 (1-9) % Eos % (Auto) 0.9 (0-6) % Baso % (Auto) 0.7 (0-2) % Absolute Neuts (auto) 4.8 (1.5-7.7) 10^3/ul Absolute Lymphs (auto) 1.1 (1.0-4.8) 10^3/ul Absolute Monos (auto) 0.5 (0-0.8) 10^3/ul Absolute Eos (auto) 0.1 (0-0.6) 10^3/ul Absolute Basos (auto) 0 (0-0.2) 10^3/ul Absolute Nucleated RBC 0.12 10^3/ul Nucleated RBC % 1.8 INR (Anticoag Therapy) (0.77-1.02) APTT (26.0-36.3) seconds D-Dimer, Quantitative (Less Than 230) ng/mL Sodium (133-145) mmol/L Potassium (3.5-5.0) mmol/L Chloride (101-111) mmol/L Carbon Dioxide (22-32) mmol/L Anion Gap (2-11) mmol/L BUN (6-24) mg/dL Creatinine (0.51-0.95) mg/dL Est GFR ( Amer) (>60) Est GFR (Non-Af Amer) (>60) BUN/Creatinine Ratio (8-20) Glucose (70-100) mg/dL Lactic Acid 0.8 (0.5-2.0) mmol/L Calcium (8.6-10.3) mg/dL Total Bilirubin (0.2-1.0) mg/dL AST (13-39) U/L ALT (7-52) U/L Alkaline Phosphatase (34-104) U/L Total Creatine Kinase (10-223) U/L CK-MB (CK-2) (0.6-6.3) ng/mL Troponin I (<0.04) ng/mL C-Reactive Protein (< 5.00) mg/L B-Natriuretic Peptide ( - 100) pg/mL Total Protein (6.4-8.9) g/dL Albumin (3.2-5.2) g/dL Globulin (2-4) g/dL Albumin/Globulin Ratio (1-3) Influenza A (Rapid) Negative (Negative) Influenza B (Rapid) Negative (Negative) Microbiology and Other Data: Microbiology 06/16/17 01:30 Urine Culture - Final Urine Assess/Plan/Problems-Billing Ms. Robledo is a 61 yo female with a PMH of afib on Eliquis, systolic/diastolic HF, HTN, DM2, FRANCIS, COPD, lymphoma, CKD 3, and depression and anxiety who presented to the ED with gradually worsening SOB for 2 weeks; CTA shows bilateral pulmonary emboli. - Patient Problems (1) Pulmonary embolism with acute cor pulmonale Current Visit: Yes Status: Acute Code(s): I26.09 - OTHER PULMONARY EMBOLISM WITH ACUTE COR PULMONALE SNOMED Code(s): 96237616 Comment: CTA shows moderately large burden of bilateral acute pulmonary emboli. Continue coumadin and heparin drip until INR 2-3 for 48hr. She is an eliquis failure. (2) History of lymphoma Current Visit: Yes Status: Acute Code(s): Z85.79 - PRSNL HX OF MALIG NEOPLM OF LYMPHOID, HEMATPOETC & REL TISS SNOMED Code(s): 233003076 Comment: Recurrence of mantle cell lymphoma on FNA of R supraclavicular LN. Heme/onc following. (3) COPD (chronic obstructive pulmonary disease) Current Visit: Yes Status: Chronic Code(s): J44.9 - CHRONIC OBSTRUCTIVE PULMONARY DISEASE, UNSPECIFIED SNOMED Code(s): 85277388 Comment: Pt has no wheezing on exam today. Continue prednisone and nebulizer treatments. (4) CKD (chronic kidney disease), stage III Current Visit: Yes Status: Chronic Priority: High Code(s): N18.3 - CHRONIC KIDNEY DISEASE, STAGE 3 (MODERATE) SNOMED Code(s): 390338958 Comment: Creatinine is stable today. Continue to hold BERNARDINO. Monitor BP. (5) Hypertension Current Visit: Yes Status: Chronic Priority: High Onset Date: 01/29/14 Code(s): I10 - ESSENTIAL (PRIMARY) HYPERTENSION SNOMED Code(s): 12396738 Comment: BP is under good control. Continue coreg, spironolactone and torsemide. (6) Morbid obesity Current Visit: Yes Status: Chronic Code(s): E66.01 - MORBID (SEVERE) OBESITY DUE TO EXCESS CALORIES SNOMED Code(s): 686943931 Comment: BMI 56-Follows with [facility] for medically supervised weight loss. (7) FRANCIS (obstructive sleep apnea) Current Visit: Yes Status: Chronic Code(s): G47.33 - OBSTRUCTIVE SLEEP APNEA (ADULT) (PEDIATRIC) SNOMED Code(s): 22000212 Comment: Continue CPAP. (8) DVT prophylaxis Current Visit: Yes Status: Acute Onset Date: 10/25/14 Code(s): YUI9738 - SNOMED Code(s): 260729535 Comment: Continue Heparin drip. (9) Full code status Current Visit: Yes Status: Acute Onset Date: 10/25/14 Code(s): Z78.9 - OTHER SPECIFIED HEALTH STATUS SNOMED Code(s): 741160150 Status and Disposition: .
[2017-06-21] MEDS: Heparin DRIP 25,000 UNITS(*) 25,000 UNITS/500 ML BAG IVPB SCH (22:05)
[2017-06-21] MEDS: Senna TAB PO SCH (22:06)
[2017-06-21] MEDS: traZODone TAB* 100 MG PO SCH (22:07)
[2017-06-21] MEDS: QUEtiapine TAB* 100 MG PO SCH (22:07)
[2017-06-21] MEDS: QUEtiapine TAB* 300 MG PO SCH (22:07)
[2017-06-21] MEDS: Acetaminophen TAB* 325 MG PO PRN (22:12)
[2017-06-21] MEDS: Benzonatate CAP* 100 MG PO PRN (22:21)
[2017-06-21] MEDS: Nicotine Patch Removal NOTE PATCH OFF SCH (22:24)
[2017-06-22] MEDS: traMADol TAB* 50 MG PO PRN ×2 (03:32→11:09)
[2017-06-22] MEDS: Tiotropium CAP.INH* CAP.INH/18 MCG (USE ORDER SET !) INH SCH (08:37)
[2017-06-22] MEDS: Mometasone/Formoter 100/5 MDI INH SCH ×2 (08:38→19:38)
[2017-06-22] MEDS: Multivitamins/Minerals TAB PO SCH (09:17)
[2017-06-22] MEDS: Potassium Chlor TAB* 20 MEQ TAB.ER PO SCH (09:17)
[2017-06-22] MEDS: ALPRAZolam TAB* 0.5 MG PO PRN ×2 (09:17→20:49)
[2017-06-22] MEDS: Atorvastatin* 20 MG TAB PO SCH (09:17)
[2017-06-22] MEDS: Ferrous Sulfate TAB* 325 MG PO SCH (09:17)
[2017-06-22] MEDS: Torsemide TAB* 20 MG PO SCH ×2 (09:17→20:32)
[2017-06-22] MEDS: Spironolactone TAB* 25 MG PO SCH (09:17)
[2017-06-22] MEDS: Omeprazole CAP* 20 MG PO SCH (09:18)
[2017-06-22] MEDS: predniSONE TAB* 20 MG PO SCH (09:18)
[2017-06-22] MEDS: Fluticasone NASAL SPRAY 50MCG* 16 gm SPRAY BTL BOTH NARES SCH (09:18)
[2017-06-22] MEDS: Carvedilol TAB* 25 MG PO SCH ×2 (09:18→20:32)
[2017-06-22] MEDS: Docusate CAP* 100 MG PO SCH ×2 (09:18→20:32)
[2017-06-22] MEDS: Nicotine PATCH 14 MG/24 HR* PATCH TRANSDERM SCH (09:18)
--- NOTE | 2017-06-22 10:38 | PN ---
Subjective Date of Service: 06/22/17 Interval History: Pt is feeling ok. She states she is still having some cough and sputum production. She continues to have pain. No SOB. Family History: Unchanged from Admission Social History: Unchanged from Admission Past Medical History: Unchanged from Admission Objective Active Medications: Acetaminophen (Tylenol Tab*) 650 mg PO Q6H PRN PRN Reason: FEVER/PAIN Last Admin: 06/21/17 22:12 Dose: 650 mg Albuterol (Ventolin Hfa Inhaler*) 2 puff INH Q4H PRN PRN Reason: SOB/WHEEZING Last Admin: 06/17/17 08:24 Dose: 2 puff Albuterol/Ipratropium (Duoneb (Albuterol 2.5 Mg/Ipratropium 0.5 Mg)) 1 neb INH Q4H PRN PRN Reason: SOB/WHEEZING Alprazolam (Xanax Tab*) 0.5 mg PO TID PRN PRN Reason: ANXIETY Last Admin: 06/22/17 09:17 Dose: 0.5 mg Atorvastatin Calcium (Lipitor*) 20 mg PO DAILY [facility] Last Admin: 06/22/17 09:17 Dose: 20 mg Benzonatate (Tessalon Cap*) 200 mg PO Q6H PRN PRN Reason: COUGH Last Admin: 06/21/17 22:21 Dose: 200 mg Carvedilol (Coreg Tab*) 50 mg PO BID [facility] Last Admin: 06/22/17 09:18 Dose: 50 mg Docusate Sodium (Colace Cap*) 100 mg PO BID [facility] Last Admin: 06/22/17 09:18 Dose: 100 mg Ferrous Sulfate (Ferrous Sulfate Tab*) 325 mg PO DAILY [facility] Last Admin: 06/22/17 09:17 Dose: 325 mg Fluticasone Propionate (Flonase Nasal [place] 50mcg*) 2 spray BOTH NARES DAILY [facility] Last Admin: 06/22/17 09:18 Dose: Not Given Heparin Sodium (Porcine) (Heparin Vial(*)) 0 units IV .PER PROTOCOL [facility] PRN Reason: Protocol Last Admin: 06/21/17 18:37 Dose: 6,900 units Heparin Sodium/Dextrose (Heparin Drip 25,000 Units(*)) 25,000 units in 500 mls @ 0 mls/hr IVPB .PER RATE LIYAH; Per Protocol PRN Reason: Protocol Last Admin: 06/21/17 22:05 Dose: 47 mls/hr Melatonin (Melatonin (Nf)) 3 mg PO BEDTIME PRN; Protocol PRN Reason: Sleep Mometasone Furoate/Formoterol Fumar (Dulera 100/5 Mdi*) 1 puff INH BID [facility] Last Admin: 06/22/17 08:38 Dose: 1 puff Multivitamins/Minerals (Theragran/Minerals Tab*) 1 tab PO DAILY [facility] Last Admin: 06/22/17 09:17 Dose: 1 tab Nicotine (Nicotine Inhaler*) 10 mg INH Q2H PRN PRN Reason: CRAVINGS Nicotine (Nicotine Patch 14 Mg/24 Hr*) 1 patch TRANSDERM DAILY [facility] Last Admin: 06/22/17 09:18 Dose: 1 patch Omeprazole (Prilosec Cap*) 20 mg PO DAILY@0730 [facility] Last Admin: 06/22/17 09:18 Dose: 20 mg Ondansetron HCl (Zofran Inj*) 4 mg IV Q6H PRN PRN Reason: NAUSEA Pharmacy Profile Note (Nicotine Patch Removal Note*) 1 note PATCH OFF 2100 [facility] Last Admin: 06/21/17 22:24 Dose: 1 note Potassium Chloride (Klor Con Er Tab*) 20 meq PO DAILY WITH MEAL [facility] Last Admin: 06/22/17 09:17 Dose: 20 meq Prednisone (Deltasone Tab*) 40 mg PO DAILY [facility] Last Admin: 06/22/17 09:18 Dose: 40 mg Quetiapine Fumarate (Seroquel Tab*) 600 mg PO BEDTIME [facility] Last Admin: 06/21/17 22:07 Dose: 600 mg Quetiapine Fumarate (Seroquel Tab*) 200 mg PO BEDTIME [facility] Last Admin: 06/21/17 22:07 Dose: 200 mg Senna (Senokot Tab*) 2 tab PO BEDTIME [facility] Last Admin: 06/21/17 22:06 Dose: 2 tab Spironolactone (Aldactone Tab*) 100 mg PO DAILY [facility] Last Admin: 06/22/17 09:17 Dose: 100 mg Tiotropium [place] (Spiriva Cap.Inh*) 1 cap INH DAILY [facility] Last Admin: 06/22/17 08:37 Dose: 1 cap Torsemide (Demadex*) 20 mg PO BID [facility] Last Admin: 06/22/17 09:17 Dose: 20 mg Tramadol HCl (Ultram*) 50 mg PO Q6H PRN PRN Reason: PAIN Last Admin: 06/22/17 03:32 Dose: 50 mg Trazodone HCl (Desyrel Tab*) 100 mg PO BEDTIME [facility] Last Admin: 06/21/17 22:07 Dose: 100 mg Warfarin Sodium (Coumadin Tab(*)) 5 mg PO DAILY@1700 [facility] PRN Reason: Protocol Last Admin: 06/21/17 17:17 Dose: 5 mg Vital Signs - 8 hr 06/22/17 06/22/17 06/22/17 03:32 05:35 07:29 Temperature 97.6 F Pulse Rate 86 Respiratory 16 14 20 Rate Blood Pressure 125/76 (mmHg) O2 Sat by Pulse 99 Oximetry 06/22/17 06/22/17 06/22/17 07:42 08:39 09:17 Temperature Pulse Rate 88 Respiratory 20 20 20 Rate Blood Pressure (mmHg) O2 Sat by Pulse 99 97 Oximetry Oxygen Devices in Use Now: Nasal Cannula Appearance: Middle aged female lying in bed sleeping, awakens to voice, NAD Eyes: No Scleral Icterus Ears/Nose/Mouth/Throat: Mucous Membranes Moist Respiratory: Symmetrical Chest Expansion and Respiratory Effort, Clear to Auscultation Cardiovascular: NL Sounds; No Murmurs; No JVD, RRR Abdominal: NL Sounds; No Tenderness; No Distention Extremities: No Clubbing, Cyanosis Skin: No Rash or Ulcers, No Nodules or Sclerosis Neurological: Alert and Oriented x 3 Result Diagrams: 06/21/17 06:44 06/21/17 06:44 Additional Lab and Data: Lab Results 06/15/17 06/15/17 06/15/17 Range/Units 22:20 22:20 22:20 WBC (3.5-10.8) 10^3/ul RBC (4.0-5.4) 10^6/ul Hgb (12.0-16.0) g/dl Hct (35-47) % MCV (80-97) fL MCH (27-31) pg MCHC (31-36) g/dl RDW (10.5-15) % Plt Count (150-450) 10^3/ul MPV (7.4-10.4) um3 Neut % (Auto) (38-83) % Lymph % (Auto) (25-47) % [place] % (Auto) (1-9) % Eos % (Auto) (0-6) % Baso % (Auto) (0-2) % Absolute Neuts (auto) (1.5-7.7) 10^3/ul Absolute Lymphs (auto) (1.0-4.8) 10^3/ul Absolute Monos (auto) (0-0.8) 10^3/ul Absolute Eos (auto) (0-0.6) 10^3/ul Absolute Basos (auto) (0-0.2) 10^3/ul Absolute Nucleated RBC 10^3/ul Nucleated RBC % INR (Anticoag Therapy) 1.06 H (0.77-1.02) APTT 29.0 (26.0-36.3) seconds D-Dimer, Quantitative 605 H (Less Than 230) ng/mL Sodium 140 (133-145) mmol/L Potassium 4.1 (3.5-5.0) mmol/L Chloride 101 (101-111) mmol/L Carbon Dioxide 34 H (22-32) mmol/L Anion Gap 5 (2-11) mmol/L BUN 28 H (6-24) mg/dL Creatinine 1.51 H (0.51-0.95) mg/dL Est GFR ( Amer) 45.1 (>60) Est GFR (Non-Af Amer) 35.0 (>60) BUN/Creatinine Ratio 18.5 (8-20) Glucose 104 H (70-100) mg/dL Lactic Acid (0.5-2.0) mmol/L Calcium 8.7 (8.6-10.3) mg/dL Total Bilirubin 0.40 (0.2-1.0) mg/dL AST 7 L (13-39) U/L ALT 8 (7-52) U/L Alkaline Phosphatase 76 (34-104) U/L Total Creatine Kinase 37 (10-223) U/L CK-MB (CK-2) 1.1 (0.6-6.3) ng/mL Troponin I 0.02 (<0.04) ng/mL C-Reactive Protein 93.11 H (< 5.00) mg/L B-Natriuretic Peptide 368 H ( - 100) pg/mL Total Protein 6.6 (6.4-8.9) g/dL Albumin 3.3 (3.2-5.2) g/dL Globulin 3.3 (2-4) g/dL Albumin/Globulin Ratio 1.0 (1-3) Influenza A (Rapid) (Negative) Influenza B (Rapid) (Negative) 06/15/17 06/15/17 06/15/17 Range/Units 22:20 22:20 22:42 WBC 6.5 (3.5-10.8) 10^3/ul RBC 4.09 (4.0-5.4) 10^6/ul Hgb 10.8 L (12.0-16.0) g/dl Hct 33 L (35-47) % MCV 82 (80-97) fL MCH 26 L (27-31) pg MCHC 32 (31-36) g/dl RDW 19 H (10.5-15) % Plt Count 205 (150-450) 10^3/ul MPV 9 (7.4-10.4) um3 Neut % (Auto) 74.3 (38-83) % Lymph % (Auto) 16.4 L (25-47) % [place] % (Auto) 7.7 (1-9) % Eos % (Auto) 0.9 (0-6) % Baso % (Auto) 0.7 (0-2) % Absolute Neuts (auto) 4.8 (1.5-7.7) 10^3/ul Absolute Lymphs (auto) 1.1 (1.0-4.8) 10^3/ul Absolute Monos (auto) 0.5 (0-0.8) 10^3/ul Absolute Eos (auto) 0.1 (0-0.6) 10^3/ul Absolute Basos (auto) 0 (0-0.2) 10^3/ul Absolute Nucleated RBC 0.12 10^3/ul Nucleated RBC % 1.8 INR (Anticoag Therapy) (0.77-1.02) APTT (26.0-36.3) seconds D-Dimer, Quantitative (Less Than 230) ng/mL Sodium (133-145) mmol/L Potassium (3.5-5.0) mmol/L Chloride (101-111) mmol/L Carbon Dioxide (22-32) mmol/L Anion Gap (2-11) mmol/L BUN (6-24) mg/dL Creatinine (0.51-0.95) mg/dL Est GFR ( Amer) (>60) Est GFR (Non-Af Amer) (>60) BUN/Creatinine Ratio (8-20) Glucose (70-100) mg/dL Lactic Acid 0.8 (0.5-2.0) mmol/L Calcium (8.6-10.3) mg/dL Total Bilirubin (0.2-1.0) mg/dL AST (13-39) U/L ALT (7-52) U/L Alkaline Phosphatase (34-104) U/L Total Creatine Kinase (10-223) U/L CK-MB (CK-2) (0.6-6.3) ng/mL Troponin I (<0.04) ng/mL C-Reactive Protein (< 5.00) mg/L B-Natriuretic Peptide ( - 100) pg/mL Total Protein (6.4-8.9) g/dL Albumin (3.2-5.2) g/dL Globulin (2-4) g/dL Albumin/Globulin Ratio (1-3) Influenza A (Rapid) Negative (Negative) Influenza B (Rapid) Negative (Negative) Microbiology and Other Data: Microbiology 06/16/17 01:30 Urine Culture - Final Urine Assess/Plan/Problems-Billing Ms. Robledo is a 61 yo female with a PMH of afib on Eliquis, systolic/diastolic HF, HTN, DM2, FRANCIS, COPD, lymphoma, CKD 3, and depression and anxiety who presented to the ED with gradually worsening SOB for 2 weeks; CTA shows bilateral pulmonary emboli. - Patient Problems (1) Pulmonary embolism with acute cor pulmonale Current Visit: Yes Status: Acute Code(s): I26.09 - OTHER PULMONARY EMBOLISM WITH ACUTE COR PULMONALE SNOMED Code(s): 17557889 Comment: CTA shows moderately large burden of bilateral acute pulmonary emboli. Continue coumadin and heparin drip until INR 2-3 for 48hr. She is an eliquis failure. INR pending for today. Will increase coumadin today if there has been no significant change. (2) History of lymphoma Current Visit: Yes Status: Acute Code(s): Z85.79 - PRSNL HX OF MALIG NEOPLM OF LYMPHOID, HEMATPOETC & REL TISS SNOMED Code(s): 487212394 Comment: Recurrence of mantle cell lymphoma on FNA of R supraclavicular LN. Heme/onc following. (3) COPD (chronic obstructive pulmonary disease) Current Visit: Yes Status: Chronic Code(s): J44.9 - CHRONIC OBSTRUCTIVE PULMONARY DISEASE, UNSPECIFIED SNOMED Code(s): 85692924 Comment: Pt has no wheezing on exam today. Continue prednisone (decrease to 30mg tomorrow) and nebulizer treatments. (4) CKD (chronic kidney disease), stage III Current Visit: Yes Status: Chronic Priority: High Code(s): N18.3 - CHRONIC KIDNEY DISEASE, STAGE 3 (MODERATE) SNOMED Code(s): 776229983 Comment: Creatinine is stable today. Continue to hold BERNARDINO. Monitor BP. (5) Hypertension Current Visit: Yes Status: Chronic Priority: High Onset Date: 01/29/14 Code(s): I10 - ESSENTIAL (PRIMARY) HYPERTENSION SNOMED Code(s): 16921068 Comment: BP is under good control. Continue coreg, spironolactone and torsemide. ACEI currently on hold. (6) Morbid obesity Current Visit: Yes Status: Chronic Code(s): E66.01 - MORBID (SEVERE) OBESITY DUE TO EXCESS CALORIES SNOMED Code(s): 379366358 Comment: BMI 56-Follows with [facility] for medically supervised weight loss. (7) FRANCIS (obstructive sleep apnea) Current Visit: Yes Status: Chronic Code(s): G47.33 - OBSTRUCTIVE SLEEP APNEA (ADULT) (PEDIATRIC) SNOMED Code(s): 78633988 Comment: Continue CPAP. (8) DVT prophylaxis Current Visit: Yes Status: Acute Onset Date: 10/25/14 Code(s): [id number] - SNOMED Code(s): 571027022 Comment: Continue Heparin drip. (9) Full code status Current Visit: Yes Status: Acute Onset Date: 10/25/14 Code(s): Z78.9 - OTHER SPECIFIED HEALTH STATUS SNOMED Code(s): 051905079 Status and Disposition: .
[2017-06-22 11:37] LABS: INR 1.07 (0.77-1.02)
[2017-06-22] MEDS: Heparin DRIP 25,000 UNITS(*) 25,000 UNITS/500 ML BAG IVPB SCH ×2 (11:40→11:54)
[2017-06-22] MEDS: Acetaminophen TAB* 325 MG PO PRN (16:05)
[2017-06-22] MEDS: Warfarin TAB(*) 5 MG PO SCH (16:05)
[2017-06-22] MEDS: oxyCODONE TAB* 5 MG TAB PO PRN (17:48)
[2017-06-22] MEDS: QUEtiapine TAB* 300 MG PO SCH (20:31)
[2017-06-22] MEDS: traZODone TAB* 100 MG PO SCH (20:31)
[2017-06-22] MEDS: QUEtiapine TAB* 100 MG PO SCH (20:32)
[2017-06-22] MEDS: Senna TAB PO SCH (20:32)
[2017-06-22] MEDS: Nicotine Patch Removal NOTE PATCH OFF SCH (20:33)
[2017-06-22] MEDS: Benzonatate CAP* 100 MG PO PRN (20:49)
[2017-06-23 03:08] LABS: INR 1.06 (0.77-1.02)
[2017-06-23 03:12] LABS: EGFR Non-African American 34.5 (>60)
[2017-06-23] MEDS: Heparin DRIP 25,000 UNITS(*) 25,000 UNITS/500 ML BAG IVPB SCH ×2 (04:08→21:19)
[2017-06-23] MEDS: oxyCODONE TAB* 5 MG TAB PO PRN ×3 (06:07→17:12)
[2017-06-23] MEDS: Tiotropium CAP.INH* CAP.INH/18 MCG (USE ORDER SET !) INH SCH (08:42)
[2017-06-23] MEDS: Mometasone/Formoter 100/5 MDI INH SCH ×2 (08:42→21:01)
[2017-06-23] MEDS: Fluticasone NASAL SPRAY 50MCG* 16 gm SPRAY BTL BOTH NARES SCH (08:52)
[2017-06-23] MEDS: Nicotine PATCH 14 MG/24 HR* PATCH TRANSDERM SCH (08:52)
[2017-06-23] MEDS: Omeprazole CAP* 20 MG PO SCH (08:53)
[2017-06-23] MEDS: Carvedilol TAB* 25 MG PO SCH ×2 (08:53→21:28)
[2017-06-23] MEDS: Potassium Chlor TAB* 20 MEQ TAB.ER PO SCH (08:53)
[2017-06-23] MEDS: Torsemide TAB* 20 MG PO SCH (08:53)
[2017-06-23] MEDS: Ferrous Sulfate TAB* 325 MG PO SCH (08:53)
[2017-06-23] MEDS: Atorvastatin* 20 MG TAB PO SCH (08:53)
[2017-06-23] MEDS: traMADol TAB* 50 MG PO PRN (08:54)
[2017-06-23] MEDS: Docusate CAP* 100 MG PO SCH ×2 (08:55→21:29)
[2017-06-23] MEDS: Benzonatate CAP* 100 MG PO PRN (08:55)
[2017-06-23] MEDS: Multivitamins/Minerals TAB PO SCH (08:55)
[2017-06-23] MEDS: ALPRAZolam TAB* 0.5 MG PO PRN ×2 (08:56→22:47)
[2017-06-23] MEDS ORDERED: predniSONE TAB* 10 MG PO SCH (09:00)
[2017-06-23] MEDS: Spironolactone TAB* 25 MG PO SCH (09:07)
--- NOTE | 2017-06-23 11:31 | PN ---
Subjective Date of Service: 06/23/17 Interval History: Pt is feeling about the same. She states her pain is minimally better today. She does not feel comfortable doing lovenox injections. Family History: Unchanged from Admission Social History: Unchanged from Admission Past Medical History: Unchanged from Admission Objective Active Medications: Acetaminophen (Tylenol Tab*) 650 mg PO Q6H PRN PRN Reason: FEVER/PAIN Last Admin: 06/22/17 16:05 Dose: 650 mg Albuterol (Ventolin Hfa Inhaler*) 2 puff INH Q4H PRN PRN Reason: SOB/WHEEZING Last Admin: 06/17/17 08:24 Dose: 2 puff Albuterol/Ipratropium (Duoneb (Albuterol 2.5 Mg/Ipratropium 0.5 Mg)) 1 neb INH Q4H PRN PRN Reason: SOB/WHEEZING Alprazolam (Xanax Tab*) 0.5 mg PO TID PRN PRN Reason: ANXIETY Last Admin: 06/23/17 08:56 Dose: 0.5 mg Atorvastatin Calcium (Lipitor*) 20 mg PO DAILY [facility] Last Admin: 06/23/17 08:53 Dose: 20 mg Benzonatate (Tessalon Cap*) 200 mg PO Q6H PRN PRN Reason: COUGH Last Admin: 06/23/17 08:55 Dose: 200 mg Carvedilol (Coreg Tab*) 50 mg PO BID [facility] Last Admin: 06/23/17 08:53 Dose: 50 mg Docusate Sodium (Colace Cap*) 100 mg PO BID [facility] Last Admin: 06/23/17 08:55 Dose: 100 mg Ferrous Sulfate (Ferrous Sulfate Tab*) 325 mg PO DAILY [facility] Last Admin: 06/23/17 08:53 Dose: 325 mg Fluticasone Propionate (Flonase Nasal [place] 50mcg*) 2 spray BOTH NARES DAILY [facility] Last Admin: 06/23/17 08:52 Dose: 2 spray Heparin Sodium (Porcine) (Heparin Vial(*)) 0 units IV .PER PROTOCOL LIYAH PRN Reason: Protocol Last Admin: 06/21/17 18:37 Dose: 6,900 units Heparin Sodium/Dextrose (Heparin Drip 25,000 Units(*)) 25,000 units in 500 mls @ 0 mls/hr IVPB .PER RATE LIYAH; Per Protocol PRN Reason: Protocol Last Admin: 06/23/17 04:08 Dose: 33 mls/hr Melatonin (Melatonin (Nf)) 3 mg PO BEDTIME PRN; Protocol PRN Reason: Sleep Mometasone Furoate/Formoterol Fumar (Dulera 100/5 Mdi*) 1 puff INH BID [facility] Last Admin: 06/23/17 08:42 Dose: 1 puff Multivitamins/Minerals (Theragran/Minerals Tab*) 1 tab PO DAILY [facility] Last Admin: 06/23/17 08:55 Dose: 1 tab Nicotine (Nicotine Inhaler*) 10 mg INH Q2H PRN PRN Reason: CRAVINGS Nicotine (Nicotine Patch 14 Mg/24 Hr*) 1 patch TRANSDERM DAILY [facility] Last Admin: 06/23/17 08:52 Dose: 1 patch Omeprazole (Prilosec Cap*) 20 mg PO DAILY@0730 [facility] Last Admin: 06/23/17 08:53 Dose: 20 mg Ondansetron HCl (Zofran Inj*) 4 mg IV Q6H PRN PRN Reason: NAUSEA Oxycodone HCl (Roxycodone Tab*) 5 mg PO Q4H PRN PRN Reason: PAIN Last Admin: 06/23/17 06:07 Dose: 5 mg Pharmacy Profile Note (Nicotine Patch Removal Note*) 1 note PATCH OFF 2100 [facility] Last Admin: 06/22/17 20:33 Dose: 1 note Potassium Chloride (Klor Con Er Tab*) 20 meq PO DAILY WITH MEAL [facility] Last Admin: 06/23/17 08:53 Dose: 20 meq Prednisone (Deltasone Tab*) 30 mg PO DAILY [facility] Last Admin: 06/23/17 08:55 Dose: 30 mg Quetiapine Fumarate (Seroquel Tab*) 600 mg PO BEDTIME [facility] Last Admin: 06/22/17 20:31 Dose: 600 mg Quetiapine Fumarate (Seroquel Tab*) 200 mg PO BEDTIME [facility] Last Admin: 06/22/17 20:32 Dose: 200 mg Senna (Senokot Tab*) 2 tab PO BEDTIME [facility] Last Admin: 06/22/17 20:32 Dose: 2 tab Spironolactone (Aldactone Tab*) 100 mg PO DAILY [facility] Last Admin: 06/23/17 09:07 Dose: 100 mg Tiotropium [place] (Spiriva Cap.Inh*) 1 cap INH DAILY [facility] Last Admin: 06/23/17 08:42 Dose: 1 cap Torsemide (Demadex*) 20 mg PO BID [facility] Last Admin: 06/23/17 08:53 Dose: 20 mg Tramadol HCl (Ultram*) 50 mg PO Q6H PRN PRN Reason: PAIN Last Admin: 06/23/17 08:54 Dose: 50 mg Trazodone HCl (Desyrel Tab*) 100 mg PO BEDTIME [facility] Last Admin: 06/22/17 20:31 Dose: 100 mg Warfarin Sodium (Coumadin Tab(*)) 7.5 mg PO DAILY@1700 [facility] PRN Reason: Protocol Vital Signs - 8 hr 06/23/17 06/23/17 06/23/17 04:33 06:07 07:58 Temperature 98.3 F 97.7 F Pulse Rate 88 87 Respiratory 16 20 24 Rate Blood Pressure 114/77 125/74 (mmHg) O2 Sat by Pulse 93 99 Oximetry 06/23/17 06/23/17 06/23/17 08:05 08:45 08:54 Temperature Pulse Rate 87 Respiratory 22 17 22 Rate Blood Pressure (mmHg) O2 Sat by Pulse 98 98 Oximetry 06/23/17 08:56 Temperature Pulse Rate Respiratory 22 Rate Blood Pressure (mmHg) O2 Sat by Pulse Oximetry Oxygen Devices in Use Now: Nasal Cannula Appearance: Middle aged morbidly obese female lying in bed, NAD Eyes: No Scleral Icterus Ears/Nose/Mouth/Throat: Mucous Membranes Moist Respiratory: Symmetrical Chest Expansion and Respiratory Effort, Clear to Auscultation Cardiovascular: NL Sounds; No Murmurs; No JVD, RRR, No Edema Abdominal: NL Sounds; No Tenderness; No Distention Extremities: No Clubbing, Cyanosis Skin: No Rash or Ulcers, No Nodules or Sclerosis Neurological: Alert and Oriented x 3 Result Diagrams: 06/21/17 06:44 06/23/17 02:52 Additional Lab and Data: Lab Results 06/15/17 06/15/17 06/15/17 Range/Units 22:20 22:20 22:20 WBC (3.5-10.8) 10^3/ul RBC (4.0-5.4) 10^6/ul Hgb (12.0-16.0) g/dl Hct (35-47) % MCV (80-97) fL MCH (27-31) pg MCHC (31-36) g/dl RDW (10.5-15) % Plt Count (150-450) 10^3/ul MPV (7.4-10.4) um3 Neut % (Auto) (38-83) % Lymph % (Auto) (25-47) % [place] % (Auto) (1-9) % Eos % (Auto) (0-6) % Baso % (Auto) (0-2) % Absolute Neuts (auto) (1.5-7.7) 10^3/ul Absolute Lymphs (auto) (1.0-4.8) 10^3/ul Absolute Monos (auto) (0-0.8) 10^3/ul Absolute Eos (auto) (0-0.6) 10^3/ul Absolute Basos (auto) (0-0.2) 10^3/ul Absolute Nucleated RBC 10^3/ul Nucleated RBC % INR (Anticoag Therapy) 1.06 H (0.77-1.02) APTT 29.0 (26.0-36.3) seconds D-Dimer, Quantitative 605 H (Less Than 230) ng/mL Sodium 140 (133-145) mmol/L Potassium 4.1 (3.5-5.0) mmol/L Chloride 101 (101-111) mmol/L Carbon Dioxide 34 H (22-32) mmol/L Anion Gap 5 (2-11) mmol/L BUN 28 H (6-24) mg/dL Creatinine 1.51 H (0.51-0.95) mg/dL Est GFR ( Amer) 45.1 (>60) Est GFR (Non-Af Amer) 35.0 (>60) BUN/Creatinine Ratio 18.5 (8-20) Glucose 104 H (70-100) mg/dL Lactic Acid (0.5-2.0) mmol/L Calcium 8.7 (8.6-10.3) mg/dL Total Bilirubin 0.40 (0.2-1.0) mg/dL AST 7 L (13-39) U/L ALT 8 (7-52) U/L Alkaline Phosphatase 76 (34-104) U/L Total Creatine Kinase 37 (10-223) U/L CK-MB (CK-2) 1.1 (0.6-6.3) ng/mL Troponin I 0.02 (<0.04) ng/mL C-Reactive Protein 93.11 H (< 5.00) mg/L B-Natriuretic Peptide 368 H ( - 100) pg/mL Total Protein 6.6 (6.4-8.9) g/dL Albumin 3.3 (3.2-5.2) g/dL Globulin 3.3 (2-4) g/dL Albumin/Globulin Ratio 1.0 (1-3) Influenza A (Rapid) (Negative) Influenza B (Rapid) (Negative) 06/15/17 06/15/17 06/15/17 Range/Units 22:20 22:20 22:42 WBC 6.5 (3.5-10.8) 10^3/ul RBC 4.09 (4.0-5.4) 10^6/ul Hgb 10.8 L (12.0-16.0) g/dl Hct 33 L (35-47) % MCV 82 (80-97) fL MCH 26 L (27-31) pg MCHC 32 (31-36) g/dl RDW 19 H (10.5-15) % Plt Count 205 (150-450) 10^3/ul MPV 9 (7.4-10.4) um3 Neut % (Auto) 74.3 (38-83) % Lymph % (Auto) 16.4 L (25-47) % [place] % (Auto) 7.7 (1-9) % Eos % (Auto) 0.9 (0-6) % Baso % (Auto) 0.7 (0-2) % Absolute Neuts (auto) 4.8 (1.5-7.7) 10^3/ul Absolute Lymphs (auto) 1.1 (1.0-4.8) 10^3/ul Absolute Monos (auto) 0.5 (0-0.8) 10^3/ul Absolute Eos (auto) 0.1 (0-0.6) 10^3/ul Absolute Basos (auto) 0 (0-0.2) 10^3/ul Absolute Nucleated RBC 0.12 10^3/ul Nucleated RBC % 1.8 INR (Anticoag Therapy) (0.77-1.02) APTT (26.0-36.3) seconds D-Dimer, Quantitative (Less Than 230) ng/mL Sodium (133-145) mmol/L Potassium (3.5-5.0) mmol/L Chloride (101-111) mmol/L Carbon Dioxide (22-32) mmol/L Anion Gap (2-11) mmol/L BUN (6-24) mg/dL Creatinine (0.51-0.95) mg/dL Est GFR ( Amer) (>60) Est GFR (Non-Af Amer) (>60) BUN/Creatinine Ratio (8-20) Glucose (70-100) mg/dL Lactic Acid 0.8 (0.5-2.0) mmol/L Calcium (8.6-10.3) mg/dL Total Bilirubin (0.2-1.0) mg/dL AST (13-39) U/L ALT (7-52) U/L Alkaline Phosphatase (34-104) U/L Total Creatine Kinase (10-223) U/L CK-MB (CK-2) (0.6-6.3) ng/mL Troponin I (<0.04) ng/mL C-Reactive Protein (< 5.00) mg/L B-Natriuretic Peptide ( - 100) pg/mL Total Protein (6.4-8.9) g/dL Albumin (3.2-5.2) g/dL Globulin (2-4) g/dL Albumin/Globulin Ratio (1-3) Influenza A (Rapid) Negative (Negative) Influenza B (Rapid) Negative (Negative) Microbiology and Other Data: Microbiology 06/16/17 01:30 Urine Culture - Final Urine Assess/Plan/Problems-Billing Ms. Robledo is a 61 yo female with a PMH of afib on Eliquis, systolic/diastolic HF, HTN, DM2, FRANCIS, COPD, lymphoma, CKD 3, and depression and anxiety who presented to the ED with gradually worsening SOB for 2 weeks; CTA shows bilateral pulmonary emboli. - Patient Problems (1) Pulmonary embolism with acute cor pulmonale Current Visit: Yes Status: Acute Code(s): I26.09 - OTHER PULMONARY EMBOLISM WITH ACUTE COR PULMONALE SNOMED Code(s): 36175208 Comment: CTA shows moderately large burden of bilateral acute pulmonary emboli. Continue coumadin and heparin drip until INR 2-3 for 48hr. She is an eliquis failure. INR increased to 7.5mg daily. Recheck INR 06/24/17. (2) History of lymphoma Current Visit: Yes Status: Acute Code(s): Z85.79 - PRSNL HX OF MALIG NEOPLM OF LYMPHOID, HEMATPOETC & REL TISS SNOMED Code(s): 375256619 Comment: Recurrence of mantle cell lymphoma on FNA of R supraclavicular LN. Follow up with oncology as outpatient. (3) COPD (chronic obstructive pulmonary disease) Current Visit: Yes Status: Chronic Code(s): J44.9 - CHRONIC OBSTRUCTIVE PULMONARY DISEASE, UNSPECIFIED SNOMED Code(s): 36174282 Comment: Pt has no wheezing on exam today. Continue prednisone-decrease to 20mg tomorrow AM. (4) CKD (chronic kidney disease), stage III Current Visit: Yes Status: Chronic Priority: High Code(s): N18.3 - CHRONIC KIDNEY DISEASE, STAGE 3 (MODERATE) SNOMED Code(s): 319429315 Comment: Creatinine is stable today. Continue to hold BERNARDINO. Monitor BP. (5) Hypertension Current Visit: Yes Status: Chronic Priority: High Onset Date: 01/29/14 Code(s): I10 - ESSENTIAL (PRIMARY) HYPERTENSION SNOMED Code(s): 28351954 Comment: BP is under good control. Continue coreg, spironolactone and torsemide. ACEI currently on hold. (6) Morbid obesity Current Visit: Yes Status: Chronic Code(s): E66.01 - MORBID (SEVERE) OBESITY DUE TO EXCESS CALORIES SNOMED Code(s): 472971442 Comment: BMI 56-Follows with [facility] for medically supervised weight loss. (7) FRANCIS (obstructive sleep apnea) Current Visit: Yes Status: Chronic Code(s): G47.33 - OBSTRUCTIVE SLEEP APNEA (ADULT) (PEDIATRIC) SNOMED Code(s): 28513165 Comment: Continue CPAP. (8) DVT prophylaxis Current Visit: Yes Status: Acute Onset Date: 10/25/14 Code(s): SRU5658 - SNOMED Code(s): 035496782 Comment: Continue Heparin drip. (9) Full code status Current Visit: Yes Status: Acute Onset Date: 10/25/14 Code(s): Z78.9 - OTHER SPECIFIED HEALTH STATUS SNOMED Code(s): 733599149 Status and Disposition: .
[2017-06-23] MEDS: Warfarin TAB(*) 5 MG PO SCH (17:13)
[2017-06-23] MEDS: QUEtiapine TAB* 100 MG PO SCH (21:28)
[2017-06-23] MEDS: traZODone TAB* 100 MG PO SCH (21:29)
[2017-06-23] MEDS: QUEtiapine TAB* 300 MG PO SCH (21:29)
[2017-06-23] MEDS: Nicotine Patch Removal NOTE PATCH OFF SCH (21:30)
[2017-06-23] MEDS: Senna TAB PO SCH (21:30)
[2017-06-24] MEDS: Acetaminophen TAB* 325 MG PO PRN (03:59)
[2017-06-24] MEDS: oxyCODONE TAB* 5 MG TAB PO PRN ×5 (03:59→22:32)
[2017-06-24] MEDS: Omeprazole CAP* 20 MG PO SCH (07:42)
[2017-06-24] MEDS: Tiotropium CAP.INH* CAP.INH/18 MCG (USE ORDER SET !) INH SCH (08:04)
[2017-06-24] MEDS: Mometasone/Formoter 100/5 MDI INH SCH ×2 (08:07→20:04)
[2017-06-24] MEDS: Nicotine PATCH 14 MG/24 HR* PATCH TRANSDERM SCH (08:26)
[2017-06-24] MEDS: Fluticasone NASAL SPRAY 50MCG* 16 gm SPRAY BTL BOTH NARES SCH (08:28)
[2017-06-24] MEDS: Docusate CAP* 100 MG PO SCH ×2 (08:29→21:21)
[2017-06-24] MEDS: Potassium Chlor TAB* 20 MEQ TAB.ER PO SCH (08:29)
[2017-06-24] MEDS: Spironolactone TAB* 25 MG PO SCH (08:29)
[2017-06-24] MEDS: Benzonatate CAP* 100 MG PO PRN ×2 (08:30→21:20)
[2017-06-24] MEDS: Ferrous Sulfate TAB* 325 MG PO SCH (08:30)
[2017-06-24] MEDS: Torsemide TAB* 20 MG PO SCH (08:30)
[2017-06-24] MEDS: Multivitamins/Minerals TAB PO SCH (08:31)
[2017-06-24] MEDS: Atorvastatin* 20 MG TAB PO SCH (08:31)
[2017-06-24] MEDS: predniSONE TAB* 10 MG PO SCH (08:31)
[2017-06-24] MEDS: Carvedilol TAB* 25 MG PO SCH ×2 (08:31→21:21)
[2017-06-24] MEDS: ALPRAZolam TAB* 0.5 MG PO PRN ×3 (08:32→21:21)
[2017-06-24] MEDS: traMADol TAB* 50 MG PO PRN ×2 (10:31→21:19)
[2017-06-24 10:40] LABS: INR 1.15 (0.77-1.02)
[2017-06-24] MEDS: Heparin DRIP 25,000 UNITS(*) 25,000 UNITS/500 ML BAG IVPB SCH (16:16)
--- NOTE | 2017-06-24 16:39 | PN ---
Subjective Date of Service: 06/24/17 Interval History: Feels well today. She and RN report shortness of breath upon ambulation to the bathroom. She expresses concern about not having oxygen at home. No chest pain , syncope, palpitations. She does have a productive cough. Family History: Unchanged from Admission Social History: Unchanged from Admission Past Medical History: Unchanged from Admission Objective Active Medications: Acetaminophen (Tylenol Tab*) 650 mg PO Q6H PRN PRN Reason: FEVER/PAIN Last Admin: 06/24/17 03:59 Dose: 650 mg Albuterol (Ventolin Hfa Inhaler*) 2 puff INH Q4H PRN PRN Reason: SOB/WHEEZING Last Admin: 06/17/17 08:24 Dose: 2 puff Albuterol/Ipratropium (Duoneb (Albuterol 2.5 Mg/Ipratropium 0.5 Mg)) 1 neb INH Q4H PRN PRN Reason: SOB/WHEEZING Alprazolam (Xanax Tab*) 0.5 mg PO TID PRN PRN Reason: ANXIETY Last Admin: 06/24/17 13:17 Dose: 0.5 mg Atorvastatin Calcium (Lipitor*) 20 mg PO DAILY [facility] Last Admin: 06/24/17 08:31 Dose: 20 mg Benzonatate (Tessalon Cap*) 200 mg PO Q6H PRN PRN Reason: COUGH Last Admin: 06/24/17 08:30 Dose: 200 mg Carvedilol (Coreg Tab*) 50 mg PO BID [facility] Last Admin: 06/24/17 08:31 Dose: 50 mg Docusate Sodium (Colace Cap*) 100 mg PO BID [facility] Last Admin: 06/24/17 08:29 Dose: 100 mg Ferrous Sulfate (Ferrous Sulfate Tab*) 325 mg PO DAILY [facility] Last Admin: 06/24/17 08:30 Dose: 325 mg Fluticasone Propionate (Flonase Nasal [place] 50mcg*) 2 spray BOTH NARES DAILY [facility] Last Admin: 06/24/17 08:28 Dose: 2 spray Heparin Sodium (Porcine) (Heparin Vial(*)) 0 units IV .PER PROTOCOL [facility] PRN Reason: Protocol Last Admin: 06/21/17 18:37 Dose: 6,900 units Heparin Sodium/Dextrose (Heparin Drip 25,000 Units(*)) 25,000 units in 500 mls @ 0 mls/hr IVPB .PER RATE LIYAH; Per Protocol PRN Reason: Protocol Last Admin: 06/24/17 16:16 Dose: 25 mls/hr Melatonin (Melatonin (Nf)) 3 mg PO BEDTIME PRN; Protocol PRN Reason: Sleep Mometasone Furoate/Formoterol Fumar (Dulera 100/5 Mdi*) 1 puff INH BID [facility] Last Admin: 06/24/17 08:07 Dose: 1 puff Multivitamins/Minerals (Theragran/Minerals Tab*) 1 tab PO DAILY [facility] Last Admin: 06/24/17 08:31 Dose: 1 tab Nicotine (Nicotine Inhaler*) 10 mg INH Q2H PRN PRN Reason: CRAVINGS Nicotine (Nicotine Patch 14 Mg/24 Hr*) 1 patch TRANSDERM DAILY [facility] Last Admin: 06/24/17 08:26 Dose: 1 patch Omeprazole (Prilosec Cap*) 20 mg PO DAILY@0730 [facility] Last Admin: 06/24/17 07:42 Dose: 20 mg Ondansetron HCl (Zofran Inj*) 4 mg IV Q6H PRN PRN Reason: NAUSEA Oxycodone HCl (Roxycodone Tab*) 5 mg PO Q4H PRN PRN Reason: PAIN Last Admin: 06/24/17 13:17 Dose: 5 mg Pharmacy Profile Note (Nicotine Patch Removal Note*) 1 note PATCH OFF 2100 [facility] Last Admin: 06/23/17 21:30 Dose: 1 note Potassium Chloride (Klor Con Er Tab*) 20 meq PO DAILY WITH MEAL [facility] Last Admin: 06/24/17 08:29 Dose: 20 meq Prednisone (Deltasone Tab*) 20 mg PO DAILY [facility] Last Admin: 06/24/17 08:31 Dose: 20 mg Quetiapine Fumarate (Seroquel Tab*) 600 mg PO BEDTIME [facility] Last Admin: 06/23/17 21:29 Dose: 600 mg Quetiapine Fumarate (Seroquel Tab*) 200 mg PO BEDTIME [facility] Last Admin: 06/23/17 21:28 Dose: 200 mg Senna (Senokot Tab*) 2 tab PO BEDTIME [facility] Last Admin: 06/23/17 21:30 Dose: 2 tab Spironolactone (Aldactone Tab*) 100 mg PO DAILY [facility] Last Admin: 06/24/17 08:29 Dose: 100 mg Tiotropium [place] (Spiriva Cap.Inh*) 1 cap INH DAILY [facility] Last Admin: 06/24/17 08:04 Dose: 1 cap Torsemide (Demadex*) 20 mg PO DAILY [facility] Last Admin: 06/24/17 08:30 Dose: 20 mg Tramadol HCl (Ultram*) 50 mg PO Q6H PRN PRN Reason: PAIN Last Admin: 06/24/17 10:31 Dose: 50 mg Trazodone HCl (Desyrel Tab*) 100 mg PO BEDTIME [facility] Last Admin: 06/23/17 21:29 Dose: 100 mg Warfarin Sodium (Coumadin Tab(*)) 7.5 mg PO DAILY@1700 [facility] PRN Reason: Protocol Last Admin: 06/23/17 17:13 Dose: 7.5 mg Vital Signs - 8 hr 06/24/17 06/24/17 06/24/17 10:31 13:17 14:16 Temperature Pulse Rate 84 Respiratory 16 22 Rate Blood Pressure (mmHg) O2 Sat by Pulse Oximetry 06/24/17 06/24/17 06/24/17 15:35 15:37 16:18 Temperature 97.9 F Pulse Rate 100 Respiratory 16 24 Rate Blood Pressure 103/65 (mmHg) O2 Sat by Pulse 99 99 Oximetry Oxygen Devices in Use Now: Nasal Cannula Appearance: alert, well appearing Eyes: No Scleral Icterus Ears/Nose/Mouth/Throat: NL Teeth, Lips, Gums Neck: - - right supraclavicular lymphadenopathy Respiratory: Symmetrical Chest Expansion and Respiratory Effort Cardiovascular: NL Sounds; No Murmurs; No JVD, RRR Abdominal: NL Sounds; No Tenderness; No Distention Extremities: - - 1+ le edema b/l Skin: No Rash or Ulcers Neurological: Alert and Oriented x 3 Result Diagrams: 06/21/17 06:44 06/23/17 02:52 Additional Lab and Data: Lab Results 06/15/17 06/15/17 06/15/17 Range/Units 22:20 22:20 22:20 WBC (3.5-10.8) 10^3/ul RBC (4.0-5.4) 10^6/ul Hgb (12.0-16.0) g/dl Hct (35-47) % MCV (80-97) fL MCH (27-31) pg MCHC (31-36) g/dl RDW (10.5-15) % Plt Count (150-450) 10^3/ul MPV (7.4-10.4) um3 Neut % (Auto) (38-83) % Lymph % (Auto) (25-47) % [place] % (Auto) (1-9) % Eos % (Auto) (0-6) % Baso % (Auto) (0-2) % Absolute Neuts (auto) (1.5-7.7) 10^3/ul Absolute Lymphs (auto) (1.0-4.8) 10^3/ul Absolute Monos (auto) (0-0.8) 10^3/ul Absolute Eos (auto) (0-0.6) 10^3/ul Absolute Basos (auto) (0-0.2) 10^3/ul Absolute Nucleated RBC 10^3/ul Nucleated RBC % INR (Anticoag Therapy) 1.06 H (0.77-1.02) APTT 29.0 (26.0-36.3) seconds D-Dimer, Quantitative 605 H (Less Than 230) ng/mL Sodium 140 (133-145) mmol/L Potassium 4.1 (3.5-5.0) mmol/L Chloride 101 (101-111) mmol/L Carbon Dioxide 34 H (22-32) mmol/L Anion Gap 5 (2-11) mmol/L BUN 28 H (6-24) mg/dL Creatinine 1.51 H (0.51-0.95) mg/dL Est GFR ( Amer) 45.1 (>60) Est GFR (Non-Af Amer) 35.0 (>60) BUN/Creatinine Ratio 18.5 (8-20) Glucose 104 H (70-100) mg/dL Lactic Acid (0.5-2.0) mmol/L Calcium 8.7 (8.6-10.3) mg/dL Total Bilirubin 0.40 (0.2-1.0) mg/dL AST 7 L (13-39) U/L ALT 8 (7-52) U/L Alkaline Phosphatase 76 (34-104) U/L Total Creatine Kinase 37 (10-223) U/L CK-MB (CK-2) 1.1 (0.6-6.3) ng/mL Troponin I 0.02 (<0.04) ng/mL C-Reactive Protein 93.11 H (< 5.00) mg/L B-Natriuretic Peptide 368 H ( - 100) pg/mL Total Protein 6.6 (6.4-8.9) g/dL Albumin 3.3 (3.2-5.2) g/dL Globulin 3.3 (2-4) g/dL Albumin/Globulin Ratio 1.0 (1-3) Influenza A (Rapid) (Negative) Influenza B (Rapid) (Negative) 06/15/17 06/15/17 06/15/17 Range/Units 22:20 22:20 22:42 WBC 6.5 (3.5-10.8) 10^3/ul RBC 4.09 (4.0-5.4) 10^6/ul Hgb 10.8 L (12.0-16.0) g/dl Hct 33 L (35-47) % MCV 82 (80-97) fL MCH 26 L (27-31) pg MCHC 32 (31-36) g/dl RDW 19 H (10.5-15) % Plt Count 205 (150-450) 10^3/ul MPV 9 (7.4-10.4) um3 Neut % (Auto) 74.3 (38-83) % Lymph % (Auto) 16.4 L (25-47) % [place] % (Auto) 7.7 (1-9) % Eos % (Auto) 0.9 (0-6) % Baso % (Auto) 0.7 (0-2) % Absolute Neuts (auto) 4.8 (1.5-7.7) 10^3/ul Absolute Lymphs (auto) 1.1 (1.0-4.8) 10^3/ul Absolute Monos (auto) 0.5 (0-0.8) 10^3/ul Absolute Eos (auto) 0.1 (0-0.6) 10^3/ul Absolute Basos (auto) 0 (0-0.2) 10^3/ul Absolute Nucleated RBC 0.12 10^3/ul Nucleated RBC % 1.8 INR (Anticoag Therapy) (0.77-1.02) APTT (26.0-36.3) seconds D-Dimer, Quantitative (Less Than 230) ng/mL Sodium (133-145) mmol/L Potassium (3.5-5.0) mmol/L Chloride (101-111) mmol/L Carbon Dioxide (22-32) mmol/L Anion Gap (2-11) mmol/L BUN (6-24) mg/dL Creatinine (0.51-0.95) mg/dL Est GFR ( Amer) (>60) Est GFR (Non-Af Amer) (>60) BUN/Creatinine Ratio (8-20) Glucose (70-100) mg/dL Lactic Acid 0.8 (0.5-2.0) mmol/L Calcium (8.6-10.3) mg/dL Total Bilirubin (0.2-1.0) mg/dL AST (13-39) U/L ALT (7-52) U/L Alkaline Phosphatase (34-104) U/L Total Creatine Kinase (10-223) U/L CK-MB (CK-2) (0.6-6.3) ng/mL Troponin I (<0.04) ng/mL C-Reactive Protein (< 5.00) mg/L B-Natriuretic Peptide ( - 100) pg/mL Total Protein (6.4-8.9) g/dL Albumin (3.2-5.2) g/dL Globulin (2-4) g/dL Albumin/Globulin Ratio (1-3) Influenza A (Rapid) Negative (Negative) Influenza B (Rapid) Negative (Negative) Microbiology and Other Data: Microbiology 06/16/17 01:30 Urine Culture - Final Urine Assess/Plan/Problems-Billing Ms. Robledo is a 61 yo female with a PMH of afib on Eliquis, systolic/diastolic HF, HTN, DM2, FRANCIS, COPD, lymphoma, CKD 3, and depression and anxiety who presented to the ED with gradually worsening SOB for 2 weeks; CTA shows bilateral pulmonary emboli. 1. B/l PEs, malignancy-associated Lovenox is indicated for Ms. Robledo long-term, however she is uncomfortable injecting herself and there is no one else who can do it for her. Her INR is subtherapeutic, but her dose was just increased yesterday. She developed PEs while on eliquis, so NOACs are not acceptable, so a heparin bridge with warfarin is indicated. I did discuss the possibility of going home on a short lovenox bridge with warfarin, but she is unsure about this option. 2. Acute hypoxic respiratory failure Likely due to #1, titrate O2 as able. Check ambulatory pulse ox; I suspect she will need O2 continuously. 3. Recurrent Mantle Cell Lymphoma evaluated by oncology on this admission; will need close follow up as outpatient 4. FRANCIS CPAP is broken at home; she will need to return to [facility] to get a new one 5. CKD 3 creatinine is at baseline 6. Afib rate controlled on home meds; AC now with heparin/warfarin 7. DVT ppx--therapeutic AC Status and Disposition: .
[2017-06-24] MEDS: Warfarin TAB(*) 5 MG PO SCH (16:58)
[2017-06-24] MEDS: QUEtiapine TAB* 300 MG PO SCH (21:20)
[2017-06-24] MEDS: Senna TAB PO SCH (21:20)
[2017-06-24] MEDS: QUEtiapine TAB* 100 MG PO SCH (21:20)
[2017-06-24] MEDS: CMCS: Melatonin (NF) 3 MG TAB PO PRN (21:21)
[2017-06-24] MEDS: traZODone TAB* 100 MG PO SCH (21:21)
[2017-06-24] MEDS: Nicotine Patch Removal NOTE PATCH OFF SCH (21:23)
[2017-06-25 07:05] LABS: INR 1.29 (0.77-1.02)
[2017-06-25 08:31] LABS: Hematocrit 34 % (35-47); Hemoglobin 10.9 g/dl (12.0-16.0); Mean Corpuscular HGB Conc 32 g/dl (31-36); Mean Corpuscular Hemoglobin 26 pg (27-31); Mean Corpuscular Volume 82 fL (80-97); Mean Platelet Volume 9 um3 (7.4-10.4); Platelet Count 203 10^3/ul (150-450); Red Blood Count 4.17 10^6/ul (4.0-5.4); Red Cell Distribution Width 18 % (10.5-15); White Blood Count 5.7 10^3/ul (3.5-10.8)
[2017-06-25 08:44] LABS: EGFR Non-African American 43.2 (>60)
[2017-06-25] MEDS: Potassium Chlor TAB* 20 MEQ TAB.ER PO SCH (08:52)
[2017-06-25] MEDS: Omeprazole CAP* 20 MG PO SCH (08:52)
[2017-06-25] MEDS: Atorvastatin* 20 MG TAB PO SCH (08:52)
[2017-06-25] MEDS: Torsemide TAB* 20 MG PO SCH (08:54)
[2017-06-25] MEDS: Ferrous Sulfate TAB* 325 MG PO SCH (08:54)
[2017-06-25] MEDS: Docusate CAP* 100 MG PO SCH ×2 (08:54→20:47)
[2017-06-25] MEDS: Multivitamins/Minerals TAB PO SCH (08:54)
[2017-06-25] MEDS: Nicotine PATCH 14 MG/24 HR* PATCH TRANSDERM SCH (08:54)
[2017-06-25] MEDS: predniSONE TAB* 10 MG PO SCH (08:54)
[2017-06-25] MEDS: Carvedilol TAB* 25 MG PO SCH ×2 (08:55→20:47)
[2017-06-25] MEDS: Tiotropium CAP.INH* CAP.INH/18 MCG (USE ORDER SET !) INH SCH (08:58)
[2017-06-25] MEDS: Mometasone/Formoter 100/5 MDI INH SCH ×2 (08:58→20:16)
[2017-06-25] MEDS: Spironolactone TAB* 25 MG PO SCH (09:35)
[2017-06-25] MEDS: ALPRAZolam TAB* 0.5 MG PO PRN ×2 (09:36→20:51)
[2017-06-25] MEDS: oxyCODONE TAB* 5 MG TAB PO PRN ×2 (09:36→20:50)
[2017-06-25] MEDS: Fluticasone NASAL SPRAY 50MCG* 16 gm SPRAY BTL BOTH NARES SCH (11:33)
[2017-06-25] MEDS: Heparin DRIP 25,000 UNITS(*) 25,000 UNITS/500 ML BAG IVPB SCH (12:01)
[2017-06-25] MEDS: Warfarin TAB(*) 5 MG PO SCH (17:15)
--- NOTE | 2017-06-25 17:19 | PN ---
Subjective Date of Service: 06/25/17 Interval History: Feeling better today; wants to go for a walk today. No shortness of breath, able to talk in full sentences. No orthopnea or chest pain, no palpitaitons, no fevers/chills. Family History: Unchanged from Admission Social History: Unchanged from Admission Past Medical History: Unchanged from Admission Objective Active Medications: Acetaminophen (Tylenol Tab*) 650 mg PO Q6H PRN PRN Reason: FEVER/PAIN Last Admin: 06/24/17 03:59 Dose: 650 mg Albuterol (Ventolin Hfa Inhaler*) 2 puff INH Q4H PRN PRN Reason: SOB/WHEEZING Last Admin: 06/17/17 08:24 Dose: 2 puff Albuterol/Ipratropium (Duoneb (Albuterol 2.5 Mg/Ipratropium 0.5 Mg)) 1 neb INH Q4H PRN PRN Reason: SOB/WHEEZING Alprazolam (Xanax Tab*) 0.5 mg PO TID PRN PRN Reason: ANXIETY Last Admin: 06/25/17 09:36 Dose: 0.5 mg Atorvastatin Calcium (Lipitor*) 20 mg PO DAILY [facility] Last Admin: 06/25/17 08:52 Dose: 20 mg Benzonatate (Tessalon Cap*) 200 mg PO Q6H PRN PRN Reason: COUGH Last Admin: 06/24/17 21:20 Dose: 200 mg Carvedilol (Coreg Tab*) 50 mg PO BID [facility] Last Admin: 06/25/17 08:55 Dose: 50 mg Docusate Sodium (Colace Cap*) 100 mg PO BID [facility] Last Admin: 06/25/17 08:54 Dose: 100 mg Ferrous Sulfate (Ferrous Sulfate Tab*) 325 mg PO DAILY [facility] Last Admin: 06/25/17 08:54 Dose: 325 mg Fluticasone Propionate (Flonase Nasal [place] 50mcg*) 2 spray BOTH NARES DAILY [facility] Last Admin: 06/25/17 11:33 Dose: 2 spray Heparin Sodium (Porcine) (Heparin Vial(*)) 0 units IV .PER PROTOCOL [facility] PRN Reason: Protocol Last Admin: 06/21/17 18:37 Dose: 6,900 units Heparin Sodium/Dextrose (Heparin Drip 25,000 Units(*)) 25,000 units in 500 mls @ 0 mls/hr IVPB .PER RATE LIYAH; Per Protocol PRN Reason: Protocol Last Admin: 06/25/17 12:01 Dose: 25 mls/hr Melatonin (Melatonin (Nf)) 3 mg PO BEDTIME PRN; Protocol PRN Reason: Sleep Last Admin: 06/24/17 21:21 Dose: 3 mg Mometasone Furoate/Formoterol Fumar (Dulera 100/5 Mdi*) 1 puff INH BID [facility] Last Admin: 06/25/17 08:58 Dose: 1 puff Multivitamins/Minerals (Theragran/Minerals Tab*) 1 tab PO DAILY [facility] Last Admin: 06/25/17 08:54 Dose: 1 tab Nicotine (Nicotine Inhaler*) 10 mg INH Q2H PRN PRN Reason: CRAVINGS Nicotine (Nicotine Patch 14 Mg/24 Hr*) 1 patch TRANSDERM DAILY [facility] Last Admin: 06/25/17 08:54 Dose: 1 patch Omeprazole (Prilosec Cap*) 20 mg PO DAILY@0730 [facility] Last Admin: 06/25/17 08:52 Dose: 20 mg Ondansetron HCl (Zofran Inj*) 4 mg IV Q6H PRN PRN Reason: NAUSEA Oxycodone HCl (Roxycodone Tab*) 5 mg PO Q4H PRN PRN Reason: PAIN Last Admin: 06/25/17 09:36 Dose: 5 mg Pharmacy Profile Note (Nicotine Patch Removal Note*) 1 note PATCH OFF 2100 [facility] Last Admin: 06/24/17 21:23 Dose: 1 note Potassium Chloride (Klor Con Er Tab*) 20 meq PO DAILY WITH MEAL [facility] Last Admin: 06/25/17 08:52 Dose: 20 meq Prednisone (Deltasone Tab*) 20 mg PO DAILY [facility] Last Admin: 06/25/17 08:54 Dose: 20 mg Quetiapine Fumarate (Seroquel Tab*) 600 mg PO BEDTIME [facility] Last Admin: 06/24/17 21:20 Dose: 600 mg Quetiapine Fumarate (Seroquel Tab*) 200 mg PO BEDTIME [facility] Last Admin: 06/24/17 21:20 Dose: 200 mg Senna (Senokot Tab*) 2 tab PO BEDTIME [facility] Last Admin: 06/24/17 21:20 Dose: 2 tab Spironolactone (Aldactone Tab*) 100 mg PO DAILY [facility] Last Admin: 06/25/17 09:35 Dose: 100 mg Tiotropium [place] (Spiriva Cap.Inh*) 1 cap INH DAILY [facility] Last Admin: 06/25/17 08:58 Dose: 1 cap Torsemide (Demadex*) 20 mg PO DAILY [facility] Last Admin: 06/25/17 08:54 Dose: 20 mg Tramadol HCl (Ultram*) 50 mg PO Q6H PRN PRN Reason: PAIN Last Admin: 06/24/17 21:19 Dose: 50 mg Trazodone HCl (Desyrel Tab*) 100 mg PO BEDTIME [facility] Last Admin: 06/24/17 21:21 Dose: 100 mg Warfarin Sodium (Coumadin Tab(*)) 7.5 mg PO DAILY@1700 [facility] PRN Reason: Protocol Last Admin: 06/24/17 16:58 Dose: 7.5 mg Vital Signs - 8 hr 06/25/17 06/25/17 06/25/17 09:36 11:23 11:48 Temperature 97.3 F Pulse Rate 85 Respiratory 16 16 16 Rate Blood Pressure 95/61 (mmHg) O2 Sat by Pulse 94 Oximetry 06/25/17 06/25/17 11:52 11:54 Temperature Pulse Rate 96 Respiratory 16 Rate Blood Pressure 92/60 (mmHg) O2 Sat by Pulse Oximetry Oxygen Devices in Use Now: Nasal Cannula Appearance: alert, sitting up in bed, no distress Eyes: No Scleral Icterus Neck: NL Appearance and Movements; NL JVP Respiratory: Symmetrical Chest Expansion and Respiratory Effort Cardiovascular: NL Sounds; No Murmurs; No JVD, RRR Result Diagrams: 06/25/17 08:10 06/25/17 08:10 Additional Lab and Data: Lab Results 06/15/17 06/15/17 06/15/17 Range/Units 22:20 22:20 22:20 WBC (3.5-10.8) 10^3/ul RBC (4.0-5.4) 10^6/ul Hgb (12.0-16.0) g/dl Hct (35-47) % MCV (80-97) fL MCH (27-31) pg MCHC (31-36) g/dl RDW (10.5-15) % Plt Count (150-450) 10^3/ul MPV (7.4-10.4) um3 Neut % (Auto) (38-83) % Lymph % (Auto) (25-47) % [place] % (Auto) (1-9) % Eos % (Auto) (0-6) % Baso % (Auto) (0-2) % Absolute Neuts (auto) (1.5-7.7) 10^3/ul Absolute Lymphs (auto) (1.0-4.8) 10^3/ul Absolute Monos (auto) (0-0.8) 10^3/ul Absolute Eos (auto) (0-0.6) 10^3/ul Absolute Basos (auto) (0-0.2) 10^3/ul Absolute Nucleated RBC 10^3/ul Nucleated RBC % INR (Anticoag Therapy) 1.06 H (0.77-1.02) APTT 29.0 (26.0-36.3) seconds D-Dimer, Quantitative 605 H (Less Than 230) ng/mL Sodium 140 (133-145) mmol/L Potassium 4.1 (3.5-5.0) mmol/L Chloride 101 (101-111) mmol/L Carbon Dioxide 34 H (22-32) mmol/L Anion Gap 5 (2-11) mmol/L BUN 28 H (6-24) mg/dL Creatinine 1.51 H (0.51-0.95) mg/dL Est GFR ( Amer) 45.1 (>60) Est GFR (Non-Af Amer) 35.0 (>60) BUN/Creatinine Ratio 18.5 (8-20) Glucose 104 H (70-100) mg/dL Lactic Acid (0.5-2.0) mmol/L Calcium 8.7 (8.6-10.3) mg/dL Total Bilirubin 0.40 (0.2-1.0) mg/dL AST 7 L (13-39) U/L ALT 8 (7-52) U/L Alkaline Phosphatase 76 (34-104) U/L Total Creatine Kinase 37 (10-223) U/L CK-MB (CK-2) 1.1 (0.6-6.3) ng/mL Troponin I 0.02 (<0.04) ng/mL C-Reactive Protein 93.11 H (< 5.00) mg/L B-Natriuretic Peptide 368 H ( - 100) pg/mL Total Protein 6.6 (6.4-8.9) g/dL Albumin 3.3 (3.2-5.2) g/dL Globulin 3.3 (2-4) g/dL Albumin/Globulin Ratio 1.0 (1-3) Influenza A (Rapid) (Negative) Influenza B (Rapid) (Negative) 06/15/17 06/15/17 06/15/17 Range/Units 22:20 22:20 22:42 WBC 6.5 (3.5-10.8) 10^3/ul RBC 4.09 (4.0-5.4) 10^6/ul Hgb 10.8 L (12.0-16.0) g/dl Hct 33 L (35-47) % MCV 82 (80-97) fL MCH 26 L (27-31) pg MCHC 32 (31-36) g/dl RDW 19 H (10.5-15) % Plt Count 205 (150-450) 10^3/ul MPV 9 (7.4-10.4) um3 Neut % (Auto) 74.3 (38-83) % Lymph % (Auto) 16.4 L (25-47) % [place] % (Auto) 7.7 (1-9) % Eos % (Auto) 0.9 (0-6) % Baso % (Auto) 0.7 (0-2) % Absolute Neuts (auto) 4.8 (1.5-7.7) 10^3/ul Absolute Lymphs (auto) 1.1 (1.0-4.8) 10^3/ul Absolute Monos (auto) 0.5 (0-0.8) 10^3/ul Absolute Eos (auto) 0.1 (0-0.6) 10^3/ul Absolute Basos (auto) 0 (0-0.2) 10^3/ul Absolute Nucleated RBC 0.12 10^3/ul Nucleated RBC % 1.8 INR (Anticoag Therapy) (0.77-1.02) APTT (26.0-36.3) seconds D-Dimer, Quantitative (Less Than 230) ng/mL Sodium (133-145) mmol/L Potassium (3.5-5.0) mmol/L Chloride (101-111) mmol/L Carbon Dioxide (22-32) mmol/L Anion Gap (2-11) mmol/L BUN (6-24) mg/dL Creatinine (0.51-0.95) mg/dL Est GFR ( Amer) (>60) Est GFR (Non-Af Amer) (>60) BUN/Creatinine Ratio (8-20) Glucose (70-100) mg/dL Lactic Acid 0.8 (0.5-2.0) mmol/L Calcium (8.6-10.3) mg/dL Total Bilirubin (0.2-1.0) mg/dL AST (13-39) U/L ALT (7-52) U/L Alkaline Phosphatase (34-104) U/L Total Creatine Kinase (10-223) U/L CK-MB (CK-2) (0.6-6.3) ng/mL Troponin I (<0.04) ng/mL C-Reactive Protein (< 5.00) mg/L B-Natriuretic Peptide ( - 100) pg/mL Total Protein (6.4-8.9) g/dL Albumin (3.2-5.2) g/dL Globulin (2-4) g/dL Albumin/Globulin Ratio (1-3) Influenza A (Rapid) Negative (Negative) Influenza B (Rapid) Negative (Negative) Microbiology and Other Data: Microbiology 06/16/17 01:30 Urine Culture - Final Urine Assess/Plan/Problems-Billing Ms. Robledo is a 61 yo female with a PMH of afib on Eliquis, systolic/diastolic HF, HTN, DM2, FRANCIS, COPD, lymphoma, CKD 3, and depression and anxiety who presented to the ED with gradually worsening SOB for 2 weeks; CTA shows bilateral pulmonary emboli. 1. B/l PEs, malignancy-associated Lovenox is indicated for Ms. Robledo long-term, however she is uncomfortable injecting herself and there is no one else who can do it for her. Her INR is subtherapeutic, but her dose was just increased two days ago. She developed PEs while on eliquis, so NOACs are not acceptable, so a heparin bridge with warfarin is indicated. I did discuss the possibility of going home on a short lovenox bridge with warfarin, but she does not want to inject lovenox even for a short period of time. 2. Acute hypoxic respiratory failure Likely due to #1, titrate O2 as able. Check ambulatory pulse ox; I suspect she will need O2 continuously. 3. Recurrent Mantle Cell Lymphoma evaluated by oncology on this admission; will need close follow up as outpatient 4. FRANCIS CPAP is broken at home; she will need to return to [facility] to get a new one 5. CKD 3 creatinine is at baseline 6. Afib rate controlled on home meds; AC now with heparin/warfarin 7. DVT ppx--therapeutic AC Status and Disposition: .
[2017-06-25] MEDS: Nicotine Patch Removal NOTE PATCH OFF SCH (20:48)
[2017-06-25] MEDS: Senna TAB PO SCH (20:48)
[2017-06-25] MEDS: QUEtiapine TAB* 300 MG PO SCH (20:48)
[2017-06-25] MEDS: QUEtiapine TAB* 100 MG PO SCH (20:48)
[2017-06-25] MEDS: traZODone TAB* 100 MG PO SCH (20:49)
[2017-06-25] MEDS: Benzonatate CAP* 100 MG PO PRN (20:49)
[2017-06-25] MEDS: CMCS: Melatonin (NF) 3 MG TAB PO PRN (20:51)
[2017-06-26] MEDS: oxyCODONE TAB* 5 MG TAB PO PRN ×3 (03:07→19:46)
[2017-06-26] MEDS: ALPRAZolam TAB* 0.5 MG PO PRN ×3 (03:10→19:48)
[2017-06-26] MEDS: Heparin DRIP 25,000 UNITS(*) 25,000 UNITS/500 ML BAG IVPB SCH (06:59)
[2017-06-26] MEDS: Mometasone/Formoter 100/5 MDI INH SCH ×2 (07:28→20:23)
[2017-06-26 07:31] LABS: INR 1.42 (0.77-1.02)
[2017-06-26] MEDS: Tiotropium CAP.INH* CAP.INH/18 MCG (USE ORDER SET !) INH SCH (07:52)
[2017-06-26] MEDS: Nicotine PATCH 14 MG/24 HR* PATCH TRANSDERM SCH (08:33)
[2017-06-26] MEDS: Fluticasone NASAL SPRAY 50MCG* 16 gm SPRAY BTL BOTH NARES SCH (08:33)
[2017-06-26] MEDS: Potassium Chlor TAB* 20 MEQ TAB.ER PO SCH (08:34)
[2017-06-26] MEDS: Omeprazole CAP* 20 MG PO SCH (08:34)
[2017-06-26] MEDS: Atorvastatin* 20 MG TAB PO SCH (08:36)
[2017-06-26] MEDS: Ferrous Sulfate TAB* 325 MG PO SCH (08:36)
[2017-06-26] MEDS: Spironolactone TAB* 25 MG PO SCH (08:36)
[2017-06-26] MEDS: Carvedilol TAB* 25 MG PO SCH ×2 (08:36→19:46)
[2017-06-26] MEDS: predniSONE TAB* 10 MG PO SCH (08:37)
[2017-06-26] MEDS: Multivitamins/Minerals TAB PO SCH (08:37)
[2017-06-26] MEDS: Docusate CAP* 100 MG PO SCH ×2 (08:37→19:46)
[2017-06-26] MEDS: Torsemide TAB* 20 MG PO SCH (08:37)
[2017-06-26] MEDS ORDERED: Spiriva Inhaler DEVICE* 1 EACH DEVICE INH ONE (09:00)
--- NOTE | 2017-06-26 13:37 | PN ---
Subjective Date of Service: 06/26/17 Family History: Unchanged from Admission Social History: Unchanged from Admission Past Medical History: Unchanged from Admission Objective Active Medications: Acetaminophen (Tylenol Tab*) 650 mg PO Q6H PRN PRN Reason: FEVER/PAIN Last Admin: 06/24/17 03:59 Dose: 650 mg Albuterol (Ventolin Hfa Inhaler*) 2 puff INH Q4H PRN PRN Reason: SOB/WHEEZING Last Admin: 06/17/17 08:24 Dose: 2 puff Albuterol/Ipratropium (Duoneb (Albuterol 2.5 Mg/Ipratropium 0.5 Mg)) 1 neb INH Q4H PRN PRN Reason: SOB/WHEEZING Alprazolam (Xanax Tab*) 0.5 mg PO TID PRN PRN Reason: ANXIETY Last Admin: 06/26/17 09:26 Dose: 0.5 mg Atorvastatin Calcium (Lipitor*) 20 mg PO DAILY [facility] Last Admin: 06/26/17 08:36 Dose: 20 mg Benzonatate (Tessalon Cap*) 200 mg PO Q6H PRN PRN Reason: COUGH Last Admin: 06/25/17 20:49 Dose: 200 mg Carvedilol (Coreg Tab*) 50 mg PO BID [facility] Last Admin: 06/26/17 08:36 Dose: 50 mg Docusate Sodium (Colace Cap*) 100 mg PO BID [facility] Last Admin: 06/26/17 08:37 Dose: 100 mg Ferrous Sulfate (Ferrous Sulfate Tab*) 325 mg PO DAILY [facility] Last Admin: 06/26/17 08:36 Dose: 325 mg Fluticasone Propionate (Flonase Nasal [place] 50mcg*) 2 spray BOTH NARES DAILY [facility] Last Admin: 06/26/17 08:33 Dose: 2 spray Heparin Sodium (Porcine) (Heparin Vial(*)) 0 units IV .PER PROTOCOL [facility] PRN Reason: Protocol Last Admin: 06/21/17 18:37 Dose: 6,900 units Heparin Sodium/Dextrose (Heparin Drip 25,000 Units(*)) 25,000 units in 500 mls @ 0 mls/hr IVPB .PER RATE LIYAH; Per Protocol PRN Reason: Protocol Last Admin: 06/26/17 06:59 Dose: 21 mls/hr Melatonin (Melatonin (Nf)) 3 mg PO BEDTIME PRN; Protocol PRN Reason: Sleep Last Admin: 06/25/17 20:51 Dose: 3 mg Mometasone Furoate/Formoterol Fumar (Dulera 100/5 Mdi*) 1 puff INH BID [facility] Last Admin: 06/26/17 07:28 Dose: 1 puff Multivitamins/Minerals (Theragran/Minerals Tab*) 1 tab PO DAILY [facility] Last Admin: 06/26/17 08:37 Dose: 1 tab Nicotine (Nicotine Inhaler*) 10 mg INH Q2H PRN PRN Reason: CRAVINGS Nicotine (Nicotine Patch 14 Mg/24 Hr*) 1 patch TRANSDERM DAILY [facility] Last Admin: 06/26/17 08:33 Dose: 1 patch Omeprazole (Prilosec Cap*) 20 mg PO DAILY@0730 [facility] Last Admin: 06/26/17 08:34 Dose: 20 mg Ondansetron HCl (Zofran Inj*) 4 mg IV Q6H PRN PRN Reason: NAUSEA Oxycodone HCl (Roxycodone Tab*) 5 mg PO Q4H PRN PRN Reason: PAIN Last Admin: 06/26/17 09:26 Dose: 5 mg Pharmacy Profile Note (Nicotine Patch Removal Note*) 1 note PATCH OFF 2100 [facility] Last Admin: 06/25/17 20:48 Dose: 1 note Potassium Chloride (Klor Con Er Tab*) 20 meq PO DAILY WITH MEAL [facility] Last Admin: 06/26/17 08:34 Dose: 20 meq Prednisone (Deltasone Tab*) 20 mg PO DAILY [facility] Last Admin: 06/26/17 08:37 Dose: 20 mg Quetiapine Fumarate (Seroquel Tab*) 600 mg PO BEDTIME [facility] Last Admin: 06/25/17 20:48 Dose: 600 mg Quetiapine Fumarate (Seroquel Tab*) 200 mg PO BEDTIME [facility] Last Admin: 06/25/17 20:48 Dose: 200 mg Senna (Senokot Tab*) 2 tab PO BEDTIME [facility] Last Admin: 06/25/17 20:48 Dose: 2 tab Spironolactone (Aldactone Tab*) 100 mg PO DAILY [facility] Last Admin: 06/26/17 08:36 Dose: 100 mg Tiotropium [place] (Spiriva Cap.Inh*) 1 cap INH DAILY [facility] Last Admin: 06/26/17 07:52 Dose: 1 cap Torsemide (Demadex*) 20 mg PO DAILY [facility] Last Admin: 06/26/17 08:37 Dose: 20 mg Tramadol HCl (Ultram*) 50 mg PO Q6H PRN PRN Reason: PAIN Last Admin: 06/24/17 21:19 Dose: 50 mg Trazodone HCl (Desyrel Tab*) 100 mg PO BEDTIME [facility] Last Admin: 06/25/17 20:49 Dose: 100 mg Warfarin Sodium (Coumadin Tab(*)) 7.5 mg PO DAILY@1700 [facility] PRN Reason: Protocol Last Admin: 06/25/17 17:15 Dose: 7.5 mg Vital Signs - 8 hr 06/26/17 06/26/17 07:44 09:26 Temperature 97.9 F Pulse Rate 87 Respiratory 20 16 Rate Blood Pressure 116/64 (mmHg) O2 Sat by Pulse 98 Oximetry Oxygen Devices in Use Now: Nasal Cannula Appearance: alert, breathing comfortably, no distress Eyes: No Scleral Icterus Ears/Nose/Mouth/Throat: NL Teeth, Lips, Gums Neck: NL Appearance and Movements; NL JVP Respiratory: Symmetrical Chest Expansion and Respiratory Effort Cardiovascular: NL Sounds; No Murmurs; No JVD, RRR Abdominal: NL Sounds; No Tenderness; No Distention Lymphatic: No Cervical Adenopathy Extremities: No Edema Skin: No Rash or Ulcers Neurological: Alert and Oriented x 3 Result Diagrams: 06/25/17 08:10 06/25/17 08:10 Additional Lab and Data: Lab Results 06/15/17 06/15/17 06/15/17 Range/Units 22:20 22:20 22:20 WBC (3.5-10.8) 10^3/ul RBC (4.0-5.4) 10^6/ul Hgb (12.0-16.0) g/dl Hct (35-47) % MCV (80-97) fL MCH (27-31) pg MCHC (31-36) g/dl RDW (10.5-15) % Plt Count (150-450) 10^3/ul MPV (7.4-10.4) um3 Neut % (Auto) (38-83) % Lymph % (Auto) (25-47) % [place] % (Auto) (1-9) % Eos % (Auto) (0-6) % Baso % (Auto) (0-2) % Absolute Neuts (auto) (1.5-7.7) 10^3/ul Absolute Lymphs (auto) (1.0-4.8) 10^3/ul Absolute Monos (auto) (0-0.8) 10^3/ul Absolute Eos (auto) (0-0.6) 10^3/ul Absolute Basos (auto) (0-0.2) 10^3/ul Absolute Nucleated RBC 10^3/ul Nucleated RBC % INR (Anticoag Therapy) 1.06 H (0.77-1.02) APTT 29.0 (26.0-36.3) seconds D-Dimer, Quantitative 605 H (Less Than 230) ng/mL Sodium 140 (133-145) mmol/L Potassium 4.1 (3.5-5.0) mmol/L Chloride 101 (101-111) mmol/L Carbon Dioxide 34 H (22-32) mmol/L Anion Gap 5 (2-11) mmol/L BUN 28 H (6-24) mg/dL Creatinine 1.51 H (0.51-0.95) mg/dL Est GFR ( Amer) 45.1 (>60) Est GFR (Non-Af Amer) 35.0 (>60) BUN/Creatinine Ratio 18.5 (8-20) Glucose 104 H (70-100) mg/dL Lactic Acid (0.5-2.0) mmol/L Calcium 8.7 (8.6-10.3) mg/dL Total Bilirubin 0.40 (0.2-1.0) mg/dL AST 7 L (13-39) U/L ALT 8 (7-52) U/L Alkaline Phosphatase 76 (34-104) U/L Total Creatine Kinase 37 (10-223) U/L CK-MB (CK-2) 1.1 (0.6-6.3) ng/mL Troponin I 0.02 (<0.04) ng/mL C-Reactive Protein 93.11 H (< 5.00) mg/L B-Natriuretic Peptide 368 H ( - 100) pg/mL Total Protein 6.6 (6.4-8.9) g/dL Albumin 3.3 (3.2-5.2) g/dL Globulin 3.3 (2-4) g/dL Albumin/Globulin Ratio 1.0 (1-3) Influenza A (Rapid) (Negative) Influenza B (Rapid) (Negative) 06/15/17 06/15/17 06/15/17 Range/Units 22:20 22:20 22:42 WBC 6.5 (3.5-10.8) 10^3/ul RBC 4.09 (4.0-5.4) 10^6/ul Hgb 10.8 L (12.0-16.0) g/dl Hct 33 L (35-47) % MCV 82 (80-97) fL MCH 26 L (27-31) pg MCHC 32 (31-36) g/dl RDW 19 H (10.5-15) % Plt Count 205 (150-450) 10^3/ul MPV 9 (7.4-10.4) um3 Neut % (Auto) 74.3 (38-83) % Lymph % (Auto) 16.4 L (25-47) % [place] % (Auto) 7.7 (1-9) % Eos % (Auto) 0.9 (0-6) % Baso % (Auto) 0.7 (0-2) % Absolute Neuts (auto) 4.8 (1.5-7.7) 10^3/ul Absolute Lymphs (auto) 1.1 (1.0-4.8) 10^3/ul Absolute Monos (auto) 0.5 (0-0.8) 10^3/ul Absolute Eos (auto) 0.1 (0-0.6) 10^3/ul Absolute Basos (auto) 0 (0-0.2) 10^3/ul Absolute Nucleated RBC 0.12 10^3/ul Nucleated RBC % 1.8 INR (Anticoag Therapy) (0.77-1.02) APTT (26.0-36.3) seconds D-Dimer, Quantitative (Less Than 230) ng/mL Sodium (133-145) mmol/L Potassium (3.5-5.0) mmol/L Chloride (101-111) mmol/L Carbon Dioxide (22-32) mmol/L Anion Gap (2-11) mmol/L BUN (6-24) mg/dL Creatinine (0.51-0.95) mg/dL Est GFR ( Amer) (>60) Est GFR (Non-Af Amer) (>60) BUN/Creatinine Ratio (8-20) Glucose (70-100) mg/dL Lactic Acid 0.8 (0.5-2.0) mmol/L Calcium (8.6-10.3) mg/dL Total Bilirubin (0.2-1.0) mg/dL AST (13-39) U/L ALT (7-52) U/L Alkaline Phosphatase (34-104) U/L Total Creatine Kinase (10-223) U/L CK-MB (CK-2) (0.6-6.3) ng/mL Troponin I (<0.04) ng/mL C-Reactive Protein (< 5.00) mg/L B-Natriuretic Peptide ( - 100) pg/mL Total Protein (6.4-8.9) g/dL Albumin (3.2-5.2) g/dL Globulin (2-4) g/dL Albumin/Globulin Ratio (1-3) Influenza A (Rapid) Negative (Negative) Influenza B (Rapid) Negative (Negative) Microbiology and Other Data: Microbiology 06/16/17 01:30 Urine Culture - Final Urine Assess/Plan/Problems-Billing Ms. Robledo is a 61 yo female with a PMH of afib on Eliquis, systolic/diastolic HF, HTN, DM2, FRANCIS, COPD, lymphoma, CKD 3, and depression and anxiety who presented to the ED with gradually worsening SOB for 2 weeks; CTA shows bilateral pulmonary emboli. 1. B/l PEs, malignancy-associated Ms. Robledo talked with her and he agrees to help her with lovenox injections short-term. Ideally she would be on lovenox indefinitely, but she declines this option. She is stable for discharge with a lovenox/warfarin bridge, and she will follow up with Dr. Jc in 3 days for an INR check. 2. Acute hypoxic respiratory failure Likely due to #1, titrate O2 as able. Yesterday, O2 sat was okay with ambulation. Recheck ambulatory pulse ox; I suspect she will need O2 with exertion. 3. Recurrent Mantle Cell Lymphoma evaluated by oncology on this admission; will need close follow up as outpatient 4. FRANICS CPAP is broken at home; she will need to return to [facility] to get a new one 5. CKD 3 creatinine is at baseline 6. Afib rate controlled on home meds; AC with warfarin 7. DVT ppx--therapeutic AC Status and Disposition: .
[2017-06-26] MEDS ORDERED: Furosemide IV* 10 MG/ML VIAL (40 MG) IV ONE (14:35)
--- NOTE | 2017-06-26 14:40 | PN ---
Hospitalist Progress Note Date of Service: 06/26/17 I spoke with Ms. Robledo's Dieudonne after she walked. During her walk, she became tachycardic to the 120s-130s and was dyspneic. On further discussion , she said that her dry weight is 112, and she is 121lbs today. She has been taking torsemide daily, but I suspect that the fluids she has received being on the heparin drip have caused her to have a positive fluid balance. This in combination with her rapid afib likely contribute to her dyspnea. Will add IV lasix today and increase her coreg dose.
--- NOTE | 2017-06-26 15:35 | RAD ---
Indication: Shortness of breath. Single frontal view of the chest performed at 1506 hours was reviewed. Comparison is made with previous exam dated June 15, 2017. No mediastinal shift is noted. Heart is of normal size and configuration. Lung clark appear clear. Pacemaker leads are in place. IMPRESSION: NO ACTIVE CARDIOPULMONARY DISEASE IS NOTED.
[2017-06-26] MEDS ORDERED: Warfarin TAB(*) 7.5 MG PO SCH (17:00)
[2017-06-26] MEDS: traZODone TAB* 100 MG PO SCH (19:45)
[2017-06-26] MEDS: Senna TAB PO SCH (19:46)
[2017-06-26] MEDS: Benzonatate CAP* 100 MG PO PRN (19:47)
[2017-06-26] MEDS: QUEtiapine TAB* 100 MG PO SCH (19:48)
[2017-06-26] MEDS: Nicotine Patch Removal NOTE PATCH OFF SCH (20:01)
[2017-06-26] MEDS: QUEtiapine TAB* 300 MG PO SCH (20:15)
[2017-06-27] MEDS: Heparin VIAL(*) 5000 UNITS/ML VIAL (FIVE THOUSAND) IV SCH (01:09)
[2017-06-27] MEDS: Heparin DRIP 25,000 UNITS(*) 25,000 UNITS/500 ML BAG IVPB SCH (07:14)
[2017-06-27] MEDS: Tiotropium CAP.INH* CAP.INH/18 MCG (USE ORDER SET !) INH SCH (07:18)
[2017-06-27] MEDS: Mometasone/Formoter 100/5 MDI INH SCH (07:19)
[2017-06-27] MEDS: Ferrous Sulfate TAB* 325 MG PO SCH (08:26)
[2017-06-27] MEDS: Carvedilol TAB* 25 MG PO SCH (08:26)
[2017-06-27] MEDS: Atorvastatin* 20 MG TAB PO SCH (08:26)
[2017-06-27] MEDS: Nicotine PATCH 14 MG/24 HR* PATCH TRANSDERM SCH (08:26)
[2017-06-27] MEDS: Potassium Chlor TAB* 20 MEQ TAB.ER PO SCH (08:27)
[2017-06-27] MEDS: Omeprazole CAP* 20 MG PO SCH (08:27)
[2017-06-27] MEDS: predniSONE TAB* 10 MG PO SCH (08:27)
[2017-06-27] MEDS: Spironolactone TAB* 25 MG PO SCH (08:27)
[2017-06-27] MEDS: Torsemide TAB* 20 MG PO SCH (08:27)
[2017-06-27] MEDS: Multivitamins/Minerals TAB PO SCH (08:27)
[2017-06-27] MEDS: Fluticasone NASAL SPRAY 50MCG* 16 gm SPRAY BTL BOTH NARES SCH (08:27)
[2017-06-27] MEDS: Docusate CAP* 100 MG PO SCH (08:27)
[2017-06-27] MEDS: ALPRAZolam TAB* 0.5 MG PO PRN (08:34)
[2017-06-27] MEDS: oxyCODONE TAB* 5 MG TAB PO PRN (08:35)
[2017-06-27 08:58] LABS: Hematocrit 36 % (35-47); Hemoglobin 11.7 g/dl (12.0-16.0); Mean Corpuscular HGB Conc 33 g/dl (31-36); Mean Corpuscular Hemoglobin 27 pg (27-31); Mean Corpuscular Volume 81 fL (80-97); Mean Platelet Volume 9 um3 (7.4-10.4); Platelet Count 199 10^3/ul (150-450); Red Blood Count 4.39 10^6/ul (4.0-5.4); Red Cell Distribution Width 18 % (10.5-15); White Blood Count 7.2 10^3/ul (3.5-10.8)
[2017-06-27 09:13] LABS: EGFR Non-African American 37.9 (>60)
[2017-06-27 09:27] VITALS: BP 108/56
[2017-06-27 10:46] LABS: INR 1.36 (0.77-1.02)
[2017-06-27] MEDS ORDERED: Furosemide IV* 10 MG/ML VIAL (40 MG) IV ONE (13:06)
[2017-06-27] MEDS ORDERED: Enoxaparin(*) 150 MG/ML 1 ML SYRINGE SUBCUT SCH (15:00)
--- NOTE | 2017-06-27 16:44 | DCNOTE ---
Subjective Date of Service: 06/27/17 Interval History: Ms. Robledo has been walking the hallways this morning without increased work of breathing. No chest pain, dizziness, shortness of breath, palpitations. She does complain of some pain with deep inspiration. Yesterday when she ambulated, her pulse ox stayed >95% on RA. Family History: Unchanged from Admission Social History: Unchanged from Admission Past Medical History: Unchanged from Admission Objective Vital Signs - 8 hr 06/27/17 06/27/17 09:26 11:27 Temperature 97.7 F Pulse Rate 91 Respiratory 20 17 Rate Blood Pressure 108/56 (mmHg) O2 Sat by Pulse 92 Oximetry Oxygen Devices in Use Now: None Appearance: alert, well appearing. Eyes: No Scleral Icterus Ears/Nose/Mouth/Throat: NL Teeth, Lips, Gums Neck: NL Appearance and Movements; NL JVP Respiratory: Symmetrical Chest Expansion and Respiratory Effort, Clear to Auscultation Cardiovascular: NL Sounds; No Murmurs; No JVD, RRR Abdominal: NL Sounds; No Tenderness; No Distention, No Hepatosplenomegaly Lymphatic: - - 4cm supraclavicular lymph node Extremities: No Edema Skin: No Rash or Ulcers Neurological: Alert and Oriented x 3 Result Diagrams: 06/27/17 08:49 06/27/17 08:49 Additional Lab and Data: Lab Results 06/15/17 06/15/17 06/15/17 Range/Units 22:20 22:20 22:20 WBC (3.5-10.8) 10^3/ul RBC (4.0-5.4) 10^6/ul Hgb (12.0-16.0) g/dl Hct (35-47) % MCV (80-97) fL MCH (27-31) pg MCHC (31-36) g/dl RDW (10.5-15) % Plt Count (150-450) 10^3/ul MPV (7.4-10.4) um3 Neut % (Auto) (38-83) % Lymph % (Auto) (25-47) % [place] % (Auto) (1-9) % Eos % (Auto) (0-6) % Baso % (Auto) (0-2) % Absolute Neuts (auto) (1.5-7.7) 10^3/ul Absolute Lymphs (auto) (1.0-4.8) 10^3/ul Absolute Monos (auto) (0-0.8) 10^3/ul Absolute Eos (auto) (0-0.6) 10^3/ul Absolute Basos (auto) (0-0.2) 10^3/ul Absolute Nucleated RBC 10^3/ul Nucleated RBC % INR (Anticoag Therapy) 1.06 H (0.77-1.02) APTT 29.0 (26.0-36.3) seconds D-Dimer, Quantitative 605 H (Less Than 230) ng/mL Sodium 140 (133-145) mmol/L Potassium 4.1 (3.5-5.0) mmol/L Chloride 101 (101-111) mmol/L Carbon Dioxide 34 H (22-32) mmol/L Anion Gap 5 (2-11) mmol/L BUN 28 H (6-24) mg/dL Creatinine 1.51 H (0.51-0.95) mg/dL Est GFR ( Amer) 45.1 (>60) Est GFR (Non-Af Amer) 35.0 (>60) BUN/Creatinine Ratio 18.5 (8-20) Glucose 104 H (70-100) mg/dL Lactic Acid (0.5-2.0) mmol/L Calcium 8.7 (8.6-10.3) mg/dL Total Bilirubin 0.40 (0.2-1.0) mg/dL AST 7 L (13-39) U/L ALT 8 (7-52) U/L Alkaline Phosphatase 76 (34-104) U/L Total Creatine Kinase 37 (10-223) U/L CK-MB (CK-2) 1.1 (0.6-6.3) ng/mL Troponin I 0.02 (<0.04) ng/mL C-Reactive Protein 93.11 H (< 5.00) mg/L B-Natriuretic Peptide 368 H ( - 100) pg/mL Total Protein 6.6 (6.4-8.9) g/dL Albumin 3.3 (3.2-5.2) g/dL Globulin 3.3 (2-4) g/dL Albumin/Globulin Ratio 1.0 (1-3) Influenza A (Rapid) (Negative) Influenza B (Rapid) (Negative) 01/02/18 01/02/18 01/02/18 Range/Units 22:20 22:20 22:42 WBC 6.5 (3.5-10.8) 10^3/ul RBC 4.09 (4.0-5.4) 10^6/ul Hgb 10.8 L (12.0-16.0) g/dl Hct 33 L (35-47) % MCV 82 (80-97) fL MCH 26 L (27-31) pg MCHC 32 (31-36) g/dl RDW 19 H (10.5-15) % Plt Count 205 (150-450) 10^3/ul MPV 9 (7.4-10.4) um3 Neut % (Auto) 74.3 (38-83) % Lymph % (Auto) 16.4 L (25-47) % [place] % (Auto) 7.7 (1-9) % Eos % (Auto) 0.9 (0-6) % Baso % (Auto) 0.7 (0-2) % Absolute Neuts (auto) 4.8 (1.5-7.7) 10^3/ul Absolute Lymphs (auto) 1.1 (1.0-4.8) 10^3/ul Absolute Monos (auto) 0.5 (0-0.8) 10^3/ul Absolute Eos (auto) 0.1 (0-0.6) 10^3/ul Absolute Basos (auto) 0 (0-0.2) 10^3/ul Absolute Nucleated RBC 0.12 10^3/ul Nucleated RBC % 1.8 INR (Anticoag Therapy) (0.77-1.02) APTT (26.0-36.3) seconds D-Dimer, Quantitative (Less Than 230) ng/mL Sodium (133-145) mmol/L Potassium (3.5-5.0) mmol/L Chloride (101-111) mmol/L Carbon Dioxide (22-32) mmol/L Anion Gap (2-11) mmol/L BUN (6-24) mg/dL Creatinine (0.51-0.95) mg/dL Est GFR ( Amer) (>60) Est GFR (Non-Af Amer) (>60) BUN/Creatinine Ratio (8-20) Glucose (70-100) mg/dL Lactic Acid 0.8 (0.5-2.0) mmol/L Calcium (8.6-10.3) mg/dL Total Bilirubin (0.2-1.0) mg/dL AST (13-39) U/L ALT (7-52) U/L Alkaline Phosphatase (34-104) U/L Total Creatine Kinase (10-223) U/L CK-MB (CK-2) (0.6-6.3) ng/mL Troponin I (<0.04) ng/mL C-Reactive Protein (< 5.00) mg/L B-Natriuretic Peptide ( - 100) pg/mL Total Protein (6.4-8.9) g/dL Albumin (3.2-5.2) g/dL Globulin (2-4) g/dL Albumin/Globulin Ratio (1-3) Influenza A (Rapid) Negative (Negative) Influenza B (Rapid) Negative (Negative) Microbiology and Other Data: Microbiology 06/16/17 01:30 Urine Culture - Final Urine Assess/Plan/Problems-Billing Ms. Robledo is a 61 yo female with a PMH of afib on Eliquis, systolic/diastolic HF, HTN, DM2, FRANCIS, COPD, lymphoma, CKD 3, and depression and anxiety who presented to the ED with gradually worsening SOB for 2 weeks; CTA shows bilateral pulmonary emboli. 1. B/l PEs, malignancy-associated Ms. Robledo talked with her and he agrees to help her with lovenox injections short-term. Ideally she would be on lovenox indefinitely, but she declines this option. She is stable for discharge with a lovenox/warfarin bridge, and she will follow up with Dr. Jc in 3 days for an INR check. Oxycodone prn pain. 2. Acute hypoxic respiratory failure Resolved. 3. Recurrent Mantle Cell Lymphoma evaluated by oncology on this admission; will need close follow up as outpatient 4. FRANCIS CPAP is broken at home; she will need to return to [facility] to get a new one 5. CKD 3 creatinine is at baseline 6. Afib rate controlled on home meds; AC with warfarin 7. DVT ppx--therapeutic AC Status and Disposition: .
[2017-06-27] MEDS ORDERED: Warfarin TAB(*) 10 MG PO SCH (17:00)
--- NOTE | 2017-07-20 13:27 | DS ---
CC: Dr. Lieberman * DISCHARGE SUMMARY: DATE OF ADMISSION: 06/16/17 DATE OF DISCHARGE: 06/27/17 PRINCIPAL DISCHARGE DIAGNOSES: 1. Bilateral pulmonary embolisms. 2. Recurrent mantle cell lymphoma. SECONDARY DISCHARGE DIAGNOSES: 1. Chronic kidney disease. 2. Atrial fibrillation. 3. Chronic systolic heart failure. 4. Anemia of chronic disease. 5. Obstructive sleep apnea. DISCHARGE MEDICATIONS: 1. Lisinopril 20 mg daily. 2. Tramadol 50 q.6 p.r.n. 3. Torsemide 20 mg b.i.d. 4. Spironolactone 100 mg daily. 5. Coreg 50 mg b.i.d. 6. Xanax 0.5 t.i.d. p.r.n. 7. Trazodone 100 mg q.h.s. 8. KCl 20 mEq daily. 9. Spiriva inhaled daily. 10. Atorvastatin 20 mg daily. 11. Seroquel 800 mg at bedtime. 12. Omeprazole 20 mg daily. 13. Ferrous sulfate 325 mg daily. 14. Symbicort inhaled b.i.d. 15. Lovenox 150 mg subcu q.12. 16. Warfarin 10 mg daily. HOSPITAL COURSE BY PROBLEM: 1. Bilateral PEs: Ms. Robledo presented to the emergency department with worsening shortness of breath and dyspnea on exertion after a recent car trip to [place]. Her EKG showed no ischemia. Her chest x-ray was unremarkable and she appeared euvolemic, so a CT angio was obtained with concern for thrombosis and indeed bilateral PEs were found. There was some moderate burden of disease. She had been on Eliquis for AFib and reported strict adherence; therefore, this was considered an Eliquis failure and she was started on a heparin drip. Since this was a failure of Eliquis, she was also started on warfarin. This was considered to be a malignancy associated PE. So, Lovenox was discussed with her (her GFR is in the 40s). Lovenox was discussed with her at length; however, while she agreed to do it at home for the bridge, she would not use Lovenox indefinitely. She was discharged to home with just 7 days of Lovenox and warfarin because her INR was subtherapeutic and she had a followup with Dr. Jc 4 days from discharge. 2. Recurrent mantle cell lymphoma: She was noted to have a hard right supraclavicular lymph node. Oncology was consulted and recommended a biopsy, which was completed on 06/17/17 and the report resulted on 06/21/17 and showed a malignant result with recurrent mantle cell lymphoma. Oncology recommended no further inpatient workup or therapy, but close followup with Dr. Jc as an outpatient. As above, she had a followup appointment with Dr. Jc 4 days after discharge. 3. Acute on chronic systolic heart failure: Several days into her admission after requiring some fluid for her blood pressure due to the PEs and cor pulmonale, she did require some extra diuresis, but at the time of discharge she was discharged on her usual home dose of 20 mg torsemide daily. Her dry weight is 112 kilos and she was noted to be 121 kilos, so she received IV Lasix with good effect. 4. AFib with RVR: She has a long history of AFib, but is usually rate controlled. I suspect the combination of the PE and volume overload made her more difficult to control. This improved with diuresis and an increase in her carvedilol dose to 50 mg twice daily. 5. CKD: Her renal function was at baseline. 6. FRANCIS: She does not wear a CPAP. FOLLOWUP NEEDED: Ms. Robledo will follow up with Dr. Jc in 4 days for an INR check. Hopefully at this time, she will be able to stop the Lovenox. The plan will be to begin therapy at that time for recurrent mantle cell lymphoma. [id number]/CPS #: [id number] MTDD
== END 2017-06-27 15:45 | disposition home health service (06) | DRG 175 ==
LOC: ED 20:15 → MEDTELE 06-16 00:52 → MED 06-24 19:53
PROVIDERS: ADMIT Hospitalist; ATTEND Internal Medicine
PROC: 5A09357 Assistance with Respiratory Ventilation, Less than 24 Consecutive Hours, Continuous Positive Airway Pressure (ICD-10-PCS; principal; 2017-06-16)
PROC: 07D13ZX Extraction of Right Neck Lymphatic, Percutaneous Approach, Diagnostic (ICD-10-PCS; 2017-06-17)
DX: I26.99 Other pulmonary embolism without acute cor pulmonale (principal); J96.01 Acute respiratory failure with hypoxia; I50.42 Chronic combined systolic (congestive) and diastolic (congestive) heart failure; I13.0 Hypertensive heart and chronic kidney disease with heart failure and stage 1 through stage 4 chronic kidney disease, or unspecified chronic kidney disease; C83.10 Mantle cell lymphoma, unspecified site; Z68.43 Body mass index [BMI] 50.0-59.9, adult; J44.9 Chronic obstructive pulmonary disease, unspecified; I48.91 Unspecified atrial fibrillation; E66.01 Morbid (severe) obesity due to excess calories; E11.9 Type 2 diabetes mellitus without complications; E78.5 Hyperlipidemia, unspecified; G47.33 Obstructive sleep apnea (adult) (pediatric); N18.3 Chronic kidney disease, stage 3 (moderate); F41.9 Anxiety disorder, unspecified; F32.9 Major depressive disorder, single episode, unspecified; Z88.8 Allergy status to other drugs, medicaments and biological substances; Z82.49 Family history of ischemic heart disease and other diseases of the circulatory system; Z95.810 Presence of automatic (implantable) cardiac defibrillator; Z87.891 Personal history of nicotine dependence; Z80.1 Family history of malignant neoplasm of trachea, bronchus and lung; R51 Headache
CPT/HCPCS: 10021; 36415; 71045; 71046; 71275; 80048; 80053; 81003; 81015; 82550; 82553; 82607; 82728; 83540; 83550; 83605; 83735; 83880; 84484; 84520; 85025; 85027; 85379; 85610; 85730; 86140; 87086; 87502; 88172; 88173; 88184; 88185; 88188; 88305; 88341; 88342; 88360; 93005; 93306; 94640; 94660; 94760; 94762; 99231; 99232; 99233; 99285; A9270-GY; J1644; J1650; J1940; J2270; J2405; J7512; Q9967

== ENCOUNTER 2017-09-30 08:31 | Inpatient (IN) | payer OTHER, MEDICARE ==
[2017-09-30] MEDS ORDERED: Albuterol/Ipratropium NEB.SOL* Albuterol 2.5 MG/Ipratropium 0.5 MG 3 ML INH ONE (08:37)
[2017-09-30] MEDS ORDERED: methylPREDNISolone 125 MG* 2 ML VIAL IV ONE (08:37)
[2017-09-30] MEDS ORDERED: cefTRIAXone(*) 1 GM in NS 0.9% 50 ML* 50 ML IVPB ONE (08:45)
[2017-09-30 09:41] LABS: Hematocrit 37 % (35-47); Hemoglobin 11.6 g/dl (12.0-16.0); Mean Corpuscular HGB Conc 31 g/dl (31-36); Mean Corpuscular Hemoglobin 26 pg (27-31); Mean Corpuscular Volume 84 fL (80-97); Mean Platelet Volume 10.3 um3 (7.4-10.4); Platelet Count 140 10^3/ul (150-450); Red Blood Count 4.42 10^6/ul (4.0-5.4); Red Cell Distribution Width 20 % (10.5-15); White Blood Count 6.5 10^3/ul (3.5-10.8)
[2017-09-30 09:43] LABS: INR 3.25 (0.77-1.02)
[2017-09-30 09:51] LABS: EGFR Non-African American 40.8 (>60)
[2017-09-30] MEDS ORDERED: oxyCODONE/Acetamin 5/325 MG* TAB PO ONE (10:03)
[2017-09-30 10:04] LABS: ABS Basophils 0 10^3/ul (0-0.2); ABS Eosinophils 0 10^3/ul (0-0.6); ABS Monocytes 0.5 10^3/ul (0-0.8); ABS Neutrophils 4.9 10^3/ul (1.5-7.7); ABS Nucleated RBC 0 10^3/ul; Eosinophil % 0.7 % (0-6); Lymphocyte % 15.9 % (25-47); Nucleated Red Blood Cells % 0.3
--- NOTE | 2017-09-30 10:22 | RAD ---
HISTORY: Shortness of breath COMPARISONS: June 26, 2017 VIEWS: 2: frontal portable view of the chest at 9:48 AM FINDINGS: LINES AND TUBES: A left-sided ICD is noted. CARDIOMEDIASTINAL SILHOUETTE: The cardiac silhouette is enlarged. The cardiomediastinal silhouette is otherwise normal for portable technique. PLEURA: The costophrenic angles are sharp. No pleural abnormalities are noted. LUNG PARENCHYMA: There is a diffuse reticular pattern with indistinct pulmonary vessels. ABDOMEN: The upper abdomen is clear. There is no subphrenic gas. BONES AND SOFT TISSUES: No bone or soft tissue abnormalities are noted. IMPRESSION: CARDIOMEGALY WITH PULMONARY INTERSTITIAL EDEMA
[2017-09-30] MEDS ORDERED: Diltiazem IV* 5 MG/ML 5 ML VIAL (for loading dose/IV Push) (25 MG) IV SLOW PU ONE (11:29)
[2017-09-30] MEDS ORDERED: Diltiazem IV VIAL* 125 MG/25 ML VIAL ONE (11:33)
[2017-09-30] MEDS ORDERED: Diltiazem DRIP* 100 MG/100 ML ADDV.BAG IVPB SCH ×2 (12:00→12:54)
[2017-09-30] MEDS: Albuterol/Ipratropium NEB.SOL* Albuterol 2.5 MG/Ipratropium 0.5 MG 3 ML INH SCH ×4 (12:11→23:22)
[2017-09-30] MEDS: Azithromycin IV(*) 500 MG in NS 0.9% 250 ML* 250 ML IVPB SCH (12:58)
[2017-09-30] MEDS ORDERED: Azithromycin IV(*) 500 MG in D5W 250 ML BAG* 250 ML IVPB SCH (13:00)
[2017-09-30] MEDS: predniSONE TAB* 20 MG PO SCH (13:52)
[2017-09-30] MEDS: Oseltamivir CAP* 30 MG CAP PO SCH ×2 (14:14→20:12)
--- NOTE | 2017-09-30 14:58 | HP ---
CC: Dr. Stuart* HISTORY AND PHYSICAL: DATE OF ADMISSION: 09/30/17 PRIMARY CARE PROVIDER: Dr. Stuart. ATTENDING PHYSICIAN WHILE IN THE HOSPITAL: Maximino Donohue MD * (report dictated by Julian Varma NP). CHIEF COMPLAINT: 1. Shortness of breath. 2. Cough. HISTORY OF PRESENT ILLNESS: Ms. Robledo is a 62-year-old female patient, with a complex medical history, coming in to our emergency department today stating that earlier this week, probably Wednesday or Wednesday, she said she started having a sore throat. In the beginning of the week, she went to the pharmacy and she said she took an bzet-ibz-adoyday medication for her congestion and that was hypertension safe. She does not know the name of the medication. She says that she took that medication, but then she noted in the last couple of days she has been having a more productive cough. She said it looks like there is no color to it, it is clear, but it is not pink that she specifically said there is no discoloration such as yellow, green, or brown. She says that she has been having now in the last couple of days and in the last 24 hours worsening shortness of breath, particularly with exertion. She denied having any abdominal pain or nausea or vomiting associated with this. She does state that she has been aching all over. She has not really noted a fever. She denied having any chest pain. No pressure, no tightness and she states she has not felt her heart racing. She states her ankles are not anymore swollen and to her knowledge she does not know if she gained weight or not. She did state that she was smoking and she has not had a cigarette in a week because of how she has been feeling. She denies any sick contacts. She was concerned because of the breathing not getting any better. She says that she put her CPAP on this morning and it seemed to help, but as soon as she took it off and exerted herself, she was having trouble, so she decided to come into the ER today to be evaluated. She denied any nocturnal dyspnea or any orthopnea. She was evaluated in the ED. It was noted initially that she was in AFib with RVR. There was concern for a COPD exacerbation and we are asked to evaluate for admission. PAST MEDICAL HISTORY: Significant for: 1. Bilateral PEs. 2. Mantle cell lymphoma. 3. CKD. 4. AFib. 5. CHF. Her last EF in June of this year was 35% to 40%, better than 20% previously. 6. History of anemia. 7. FRANCIS. She is nonadherent to her CPAP and she has a history of COPD. 8. Hypertension. 9. Hyperlipidemia. PAST SURGICAL HISTORY: She has had an AICD placement only. HOME MEDICATIONS: According to the list obtained include: 1. Seroquel 800 mg at bedtime. 2. Warfarin 15 mg every other day. 3. Aldactone 50 mg daily. 4. Warfarin 10 mg every other day. 5. Imbruvica 560 mg daily. 6. Philo 1 tablet p.o. t.i.d., as needed. 7. Diltiazem 180 mg daily. 8. Flexeril 10 mg p.o. t.i.d., as needed. 9. Trazodone 100 mg p.o. at bedtime. 10. Tramadol 50 mg every 6 hours as needed. 11. Oxycodone 5 mg every 6 hours as needed. 12. Demadex 20 mg p.o. b.i.d. 13. Spiriva 1 capsule inhaled daily. 14. Potassium 20 mEq p.o. daily. 15. Nicotine 14 mg transdermal daily. 16. Nicotine inhaler 10 mg inhaled every 2 hours as needed. 17. Multivitamin one tablet daily. 18. Lisinopril 20 mg daily. 19. Colace 100 mg p.o. b.i.d. 20. Coreg 50 mg p.o. b.i.d. That dose was confirmed. 21. Symbicort 1 puff inhaled b.i.d. 22. Lipitor 20 mg p.o. daily. 23. Albuterol 2 puffs inhaled every 4 hours as needed. 24. Xanax 0.5 mg p.o. t.i.d. as needed. ALLERGIES TO MEDICATIONS: Include ASPIRIN. FAMILY HISTORY: She says her mother is still alive at the age of 89. Father had a history of lung cancer. SOCIAL HISTORY: She is a smoker still. Her last cigarette was a week ago. She does state that she has been smoking off and on since her teenage years about half a pack a day. She rarely drinks alcohol. Her surrogate decision maker is her , Dieudonne. REVIEW OF SYSTEMS: There is no documented fever. She denied any significant weight change. There was no double vision. There is no ear discharge. There was no rhinorrhea. There was a sore throat. She did admit to feeling congested. She does admit to a cough. She admits to dyspnea on exertion. No chest pain. She denies any orthopnea or nocturnal dyspnea. She denied any abdominal pain. No nausea, no vomiting, no dysuria, no frequency. There was no seizure. No loss of consciousness, no pruritus and no skin ulceration. Review of 14 systems completed, all others negative. PHYSICAL EXAMINATION GENERAL: At this time, Ms. Robledo is a 62-year-old female patient. She is sitting on the ED stretcher. She does not appear to be in any acute distress. VITAL SIGNS: Blood pressure 156/107, pulse 130, respirations 19, O2 sat 98%, temperature 98.4. HEENT: Head: Atraumatic, normocephalic. Eyes: EOMs intact. Sclerae are anicteric and not pale. Throat: Oral mucosa appears to be moist. No oropharyngeal erythema. NECK: Supple. LUNGS: She had wheezing noted throughout. HEART: Sounds S1, S2. Irregularly irregular rate. No murmurs, rubs or gallops. ABDOMEN: Soft, flat, nontender. Bowel sounds present. EXTREMITIES: Pulses are 2+ throughout. She had no pitting edema. She is moving all 4 extremities with 5/5 strength. NEUROLOGIC: The patient is awake, alert. She is oriented x3. Tongue midline. [employer] are equal. No gross focal deficits. SKIN: Intact. DIAGNOSTIC STUDIES/LAB DATA: WBC of 6.5, RBC of 4.42, hemoglobin 11.6, hematocrit 37, platelet count 140. Her INR was 3.25, PTT 37.9. D-dimer less than 200. VBG showed a pH of 7.27, pCO2 of 72, bicarb 27. Chemistries: Sodium 138, potassium 4.2, chloride of 104, bicarb 28, BUN 26, creatinine 1.32 which is near baseline, glucose of 111, lactic of 0.7, mag was 1.9, calcium 9.4. Total bili 0.3, AST 14, ALT 10, alk phos 73. CK 38, CK-MB 1.1, troponin 0.01. CRP of 25. BNP is 51. TSH normal. Lipase negative, albumin of 3.8. Influenza was negative. Chest x-ray showed cardiomegaly with pulmonary interstitial edema. Again, reviewing the x-ray myself, this is a difficult film given the patient's body habitus. I do not see any obvious infiltrates. At this point, EKG obtained today shows atrial fibrillation with a rapid ventricular response at the rate of 135. There is no ST elevation. I reviewed previously her EKG did show AFib with RVR. She does have inversions now in leads V5 and V6, which she did not have previously when she has been rapid in the past, though she has had flat T-waves in those leads. She did have an echo 3 months ago, which showed an EF of 35% to 40%. Old medical records reviewed. ASSESSMENT AND PLAN: Ms. Robledo is a 62-year-old female patient with multiple medical problems coming in to the ED today with complaints of cough, generalized malaise, aching, dyspnea on exertion for the last 4 days, which has been progressively getting worse. We were asked to evaluate for admission. She will be admitted under inpatient status for: 1. Chronic obstructive pulmonary disease exacerbation. I suspect the shortness of breath is probably secondary to the chronic obstructive pulmonary disease exacerbation. It is probably secondary to a viral bronchitis. However , her story is concerning for possible flu, although the flu swab is negative. It does seem to be safe to treat her empirically with Tamiflu and azithromycin for the antiinflammatory effects. Go ahead and put her on steroids 60 a day. Aggressive nebulizer treatments with DuoNeb every 4 hours and p.r.n., albuterol along with Dulera and aggressive pulmonary toileting and continue to titrate her back on these nebs as needed. In addition to this pulmonary toileting, try to get a sputum cultures, and also get a legionella antigen and Strep pneumoniae antigens. 2. Atrial fibrillation. She is in rapid ventricular rate, which certainly is not helping her shortness of breath at this point. I have started a diltiazem drip with titration orders for this. I am going to put her in the ICU. As her INR is therapeutic, I am going to hold tonight's dose as her INR is 3.25. We will repeat INR tomorrow. We will need to restart her Coumadin as needed. 3. Congestive heart failure. She does not appear to be in fulminant congestive heart failure at this point. Again, the atrial fibrillation with rapid ventricular response if left unchecked certainly could lead to fulminant congestive heart failure. I am going to continue her standing diuretics. If I need to, I will add on IV Lasix, but she is not having any pitting edema, she is having more dyspnea with exertion. We will check her weights daily, again diurese as needed, but I think the shortness of breath has really been driven by her chronic obstructive pulmonary disease exacerbation. 4. History of bilateral pulmonary embolisms. Continue meds as prescribed. 5. History of mantle cell lymphoma. I did touch base with Oncology on-call. I recommended holding today's dose of her chemo agent, which is her Imbruvica and then touching base with them tomorrow to see if we should continue this for the first 24 hours and holding it given the chronic obstructive pulmonary disease exacerbation. 6. Chronic kidney disease. We will follow the creatinine, it is stable. 7. Anemia. H and H are stable. 8. Hypertension. Continue meds as prescribed. 9. Hyperlipidemia. Continue meds as prescribed. 10. DVT prophylaxis: INR is therapeutic. Continue the warfarin. In addition to this, we will add on SCDs. 11. Code status: Full code. 12. Fluids, electrolytes, and nutrition: Heart-healthy diet has been ordered. TIME SPENT: Time spent on the admission was 60 minutes; greater than half the time spent [id number] with the patient obtaining my history and physical; the other half the time was spent going over the plan of care with the patient and implementing the plan of care. I did discuss the plan of care with my attending, Dr. Donohue. JULIAN VARMA, MACHINE SET UP OPERATOR [id number]/[facility] #: [id number] FLOYD
--- NOTE | 2017-09-30 16:10 | ED ---
Parrish Bello Jennifer, scribed for Dino Gray MD on 09/30/17 at 0843 . Respiratory - HPI Summary HPI Summary: The patient is a 62 year old female who presents with difficulty breathing that began a couple days ago. The patient has a history of COPD, CHF, lymphoma, and afib. She additionally complains of cough and swelling in the ankles but denies fever, chills, and congestion. - History of Current Complaint Stated Complaint: wheezing Time Seen by Provider: 09/30/17 08:33 Hx Obtained From: Patient Onset/Duration: Sudden Onset, Lasting Days - couple days, Still Present Timing: Constant Initial Severity: Moderate Current Severity: Moderate Character: Wheezing Aggravating Factor(s): Nothing Alleviating Factor(s): Nothing Associated Signs and Symptoms: Negative - fever, chills, Edema, Wheezing - Allergy/Home Medications Allergies/Adverse Reactions: Allergies Allergy/AdvReac Type Severity Reaction Status Date / Time aspirin Allergy Difficulty Verified 09/30/17 08:42 Breathing Home Medications: Home Medications Cyclobenzaprine TAB* [Flexeril 10 MG TAB*] 10 mg PO TID PRN 09/30/17 [History Confirmed 09/30/17] Diltiazem CD CAP* [Cardizem CD CAP*] 180 mg PO DAILY 09/30/17 [History Confirmed 09/30/17] Hydrocodone/Acetamin 10/325(NF [Hoxie 10/325 (NF)] 1 tab PO TID PRN 09/30/17 [ History Confirmed 09/30/17] Ibrutinib (NF) [Imbruvica (NF)] 560 mg PO DAILY 09/30/17 [History Confirmed ] QUEtiapine TAB* [SEROquel TAB*] 800 mg PO BEDTIME 09/30/17 [History Confirmed ] Warfarin TAB(*) [Coumadin TAB(*)] 10 mg PO EVERY OTHER DAY 09/30/17 [History Confirmed 09/30/17] Warfarin TAB(*) [Coumadin TAB(*)] 15 mg PO EVERY OTHER DAY 09/30/17 [History Confirmed 09/30/17] PMH/Surg Hx/FS Hx/Imm Hx Endocrine/Hematology History: Denies: Hx Diabetes Cardiovascular History: Reports: Hx Angina, Hx Atrial Fibrillation, Hx Auto Implanted Cardiovert Defib - defibrillator, Hx Congestive Heart Failure, Hx Hypertension, Other Cardiovascular Problems/Disorders Respiratory History: Reports: Hx Chronic Obstructive Pulmonary Disease (COPD), Hx Pulmonary Embolism - current bilat PE's, Other Respiratory Problems/ Disorders - ON 02 AT NIGHT History: Reports: Hx Chronic Renal Failure, Hx Renal Disease Musculoskeletal History: Reports: Hx Orthopedic Injury Sensory History: Denies: Hx Contacts or Glasses, Hx Hearing Aid Opthamlomology History: Denies: Hx Contacts or Glasses Psychiatric History: Reports: Hx Anxiety - Cancer History Cancer Type, Location and Year: lymphoma/12/23 - Surgical History Surgery Procedure, Year, and Place: hernia repair/orif right foot Infectious Disease History: Denies: Hx of Known/Suspected MRSA - Family History Known Family History: Positive: Other - Father - CA Negative: Cardiac Disease, Hypertension, Diabetes - Social History Alcohol Use: Occasionally Alcohol Amount: monthly Hx Substance Use: No Substance Use Type: Reports: None Hx Tobacco Use: Yes Smoking Status (MU): Light Every Day Tobacco Smoker Type: Cigarettes Amount Used/How Often: 1/2 ppd Length of Time of Smoking/Using Tobacco: 39 years Have You Smoked in the Last Year: Yes Review of Systems Positive: Shortness Of Breath, Cough Positive: Edema All Other Systems Reviewed And Are Negative: Yes Physical Exam - Summary Physical Exam Summary: General: well-appearing, no pain distress Skin: warm, color reflects adequate perfusion, dry Head: normal Eyes: EOMI, CRISTINE ENT: normal Neck: supple, nontender Respiratory: wheezes and rhonchi bilaterally. Mild respiratory distress. Poor air movement. Cardiovascular: RRR Abdomen: soft, nontender Bowel: present Musculoskeletal: normal, strength/ROM intact. Bilateral edema. Neurological: normal, sensory/motor intact, A&O x3. Mildly confused. Psychological: affect/mood appropriate Triage Information Reviewed: Yes Vital Signs On Initial Exam: Initial Vitals Pulse Resp BP Pulse Ox 124 14 125/104 91 09/30/17 08:37 09/30/17 08:37 09/30/17 08:37 09/30/17 08:37 Vital Signs Reviewed: Yes Diagnostics - Vital Signs Vital Signs Temp Pulse Resp BP Pulse Ox 09/30/17 11:00 117 15 87 09/30/17 10:16 24 09/30/17 10:00 120 92 09/30/17 09:42 117 17 129/88 91 04/19/18 09:32 26 09/30/17 09:00 108 24 89 09/30/17 08:41 107 24 129/96 92 09/30/17 08:39 141 27 94 09/30/17 08:38 98.4 F 160 26 129/96 77 09/30/17 08:37 124 14 125/104 91 - Laboratory Lab Results: Lab Results 09/30/17 09/30/17 09/30/17 Range/Units 09:02 09:10 09:10 WBC (3.5-10.8) 10^3/ul RBC (4.0-5.4) 10^6/ul Hgb (12.0-16.0) g/dl Hct (35-47) % MCV (80-97) fL MCH (27-31) pg MCHC (31-36) g/dl RDW (10.5-15) % Plt Count (150-450) 10^3/ul MPV (7.4-10.4) um3 Neut % (Auto) (38-83) % Lymph % (Auto) (25-47) % Hockley % (Auto) (0-7) % Eos % (Auto) (0-6) % Baso % (Auto) (0-2) % Absolute Neuts (auto) (1.5-7.7) 10^3/ul Absolute Lymphs (auto) (1.0-4.8) 10^3/ul Absolute Monos (auto) (0-0.8) 10^3/ul Absolute Eos (auto) (0-0.6) 10^3/ul Absolute Basos (auto) (0-0.2) 10^3/ul Absolute Nucleated RBC 10^3/ul Nucleated RBC % Giant Platelets Hypochromasia Target Cells Elliptocytes INR (Anticoag Therapy) (0.77-1.02) APTT (26.0-36.3) seconds D-Dimer, Quantitative (Less Than 230) ng/mL VBG pH (7.33-7.43) VBG pCO2 (41-51) mmHg VBG pO2 (35-45) mmHg VBG HCO3 (24-28) mmol/L VBG O2 Saturation (70-80) % VBG Base Excess (0-4) Sodium 138 L (139-145) mmol/L Potassium 4.2 (3.5-5.0) mmol/L Chloride 104 (101-111) mmol/L Carbon Dioxide 28 (22-32) mmol/L Anion Gap 6 (2-11) mmol/L BUN 26 H (6-24) mg/dL Creatinine 1.32 H (0.51-0.95) mg/dL Est GFR ( Amer) 52.4 (>60) Est GFR (Non-Af Amer) 40.8 (>60) BUN/Creatinine Ratio 19.7 (8-20) Glucose 111 H (70-100) mg/dL Lactic Acid (0.5-2.0) mmol/L Calcium 9.4 (8.6-10.3) mg/dL Magnesium 1.9 (1.9-2.7) mg/dL Total Bilirubin 0.30 (0.2-1.0) mg/dL AST 14 (13-39) U/L ALT 10 (7-52) U/L Alkaline Phosphatase 73 (34-104) U/L Total Creatine Kinase 38 (10-223) U/L CK-MB (CK-2) 1.1 (0.6-6.3) ng/mL Troponin I 0.01 (<0.04) ng/mL C-Reactive Protein 25.63 H (< 5.00) mg/L B-Natriuretic Peptide 51 ( - 100) pg/mL Total Protein 6.6 (6.4-8.9) g/dL Albumin 3.8 (3.2-5.2) g/dL Globulin 2.8 (2-4) g/dL Albumin/Globulin Ratio 1.4 (1-3) Lipase < 10 L (11.0-82.0) U/L Procalcitonin (<0.6) ng/mL TSH 0.72 (0.34-5.60) mcIU/mL Influenza A (Rapid) Negative (Negative) Influenza B (Rapid) Negative (Negative) 09/30/17 09/30/17 09/30/17 Range/Units 09:10 09:10 09:10 WBC 6.5 (3.5-10.8) 10^3/ul RBC 4.42 (4.0-5.4) 10^6/ul Hgb 11.6 L (12.0-16.0) g/dl Hct 37 (35-47) % MCV 84 (80-97) fL MCH 26 L (27-31) pg MCHC 31 (31-36) g/dl RDW 20 H (10.5-15) % Plt Count 140 L (150-450) 10^3/ul MPV 10.3 (7.4-10.4) um3 Neut % (Auto) 75.2 (38-83) % Lymph % (Auto) 15.9 L (25-47) % Hockley % (Auto) 7.6 H (0-7) % Eos % (Auto) 0.7 (0-6) % Baso % (Auto) 0.6 (0-2) % Absolute Neuts (auto) 4.9 (1.5-7.7) 10^3/ul Absolute Lymphs (auto) 1.0 (1.0-4.8) 10^3/ul Absolute Monos (auto) 0.5 (0-0.8) 10^3/ul Absolute Eos (auto) 0 (0-0.6) 10^3/ul Absolute Basos (auto) 0 (0-0.2) 10^3/ul Absolute Nucleated RBC 0 10^3/ul Nucleated RBC % 0.3 Giant Platelets Present Hypochromasia 1+ Target Cells 1+ Elliptocytes 1+ INR (Anticoag Therapy) (0.77-1.02) APTT (26.0-36.3) seconds D-Dimer, Quantitative (Less Than 230) ng/mL VBG pH (7.33-7.43) VBG pCO2 (41-51) mmHg VBG pO2 (35-45) mmHg VBG HCO3 (24-28) mmol/L VBG O2 Saturation (70-80) % VBG Base Excess (0-4) Sodium (139-145) mmol/L Potassium (3.5-5.0) mmol/L Chloride (101-111) mmol/L Carbon Dioxide (22-32) mmol/L Anion Gap (2-11) mmol/L BUN (6-24) mg/dL Creatinine (0.51-0.95) mg/dL Est GFR ( Amer) (>60) Est GFR (Non-Af Amer) (>60) BUN/Creatinine Ratio (8-20) Glucose (70-100) mg/dL Lactic Acid 0.7 (0.5-2.0) mmol/L Calcium (8.6-10.3) mg/dL Magnesium (1.9-2.7) mg/dL Total Bilirubin (0.2-1.0) mg/dL AST (13-39) U/L ALT (7-52) U/L Alkaline Phosphatase (34-104) U/L Total Creatine Kinase (10-223) U/L CK-MB (CK-2) (0.6-6.3) ng/mL Troponin I (<0.04) ng/mL C-Reactive Protein (< 5.00) mg/L B-Natriuretic Peptide ( - 100) pg/mL Total Protein (6.4-8.9) g/dL Albumin (3.2-5.2) g/dL Globulin (2-4) g/dL Albumin/Globulin Ratio (1-3) Lipase (11.0-82.0) U/L Procalcitonin < 0.1 (<0.6) ng/mL TSH (0.34-5.60) mcIU/mL Influenza A (Rapid) (Negative) Influenza B (Rapid) (Negative) 09/30/17 09/30/17 Range/Units 09:30 09:40 WBC (3.5-10.8) 10^3/ul RBC (4.0-5.4) 10^6/ul Hgb (12.0-16.0) g/dl Hct (35-47) % MCV (80-97) fL MCH (27-31) pg MCHC (31-36) g/dl RDW (10.5-15) % Plt Count (150-450) 10^3/ul MPV (7.4-10.4) um3 Neut % (Auto) (38-83) % Lymph % (Auto) (25-47) % Hockley % (Auto) (0-7) % Eos % (Auto) (0-6) % Baso % (Auto) (0-2) % Absolute Neuts (auto) (1.5-7.7) 10^3/ul Absolute Lymphs (auto) (1.0-4.8) 10^3/ul Absolute Monos (auto) (0-0.8) 10^3/ul Absolute Eos (auto) (0-0.6) 10^3/ul Absolute Basos (auto) (0-0.2) 10^3/ul Absolute Nucleated RBC 10^3/ul Nucleated RBC % Giant Platelets Hypochromasia Target Cells Elliptocytes INR (Anticoag Therapy) 3.25 H (0.77-1.02) APTT 37.9 H (26.0-36.3) seconds D-Dimer, Quantitative < 200 (Less Than 230) ng/mL VBG pH 7.27 L (7.33-7.43) VBG pCO2 72 H (41-51) mmHg VBG pO2 35 (35-45) mmHg VBG HCO3 27.4 (24-28) mmol/L VBG O2 Saturation 64.7 L (70-80) % VBG Base Excess 4.2 H (0-4) Sodium (139-145) mmol/L Potassium (3.5-5.0) mmol/L Chloride (101-111) mmol/L Carbon Dioxide (22-32) mmol/L Anion Gap (2-11) mmol/L BUN (6-24) mg/dL Creatinine (0.51-0.95) mg/dL Est GFR ( Amer) (>60) Est GFR (Non-Af Amer) (>60) BUN/Creatinine Ratio (8-20) Glucose (70-100) mg/dL Lactic Acid (0.5-2.0) mmol/L Calcium (8.6-10.3) mg/dL Magnesium (1.9-2.7) mg/dL Total Bilirubin (0.2-1.0) mg/dL AST (13-39) U/L ALT (7-52) U/L Alkaline Phosphatase (34-104) U/L Total Creatine Kinase (10-223) U/L CK-MB (CK-2) (0.6-6.3) ng/mL Troponin I (<0.04) ng/mL C-Reactive Protein (< 5.00) mg/L B-Natriuretic Peptide ( - 100) pg/mL Total Protein (6.4-8.9) g/dL Albumin (3.2-5.2) g/dL Globulin (2-4) g/dL Albumin/Globulin Ratio (1-3) Lipase (11.0-82.0) U/L Procalcitonin (<0.6) ng/mL TSH (0.34-5.60) mcIU/mL Influenza A (Rapid) (Negative) Influenza B (Rapid) (Negative) Result Diagrams: 09/30/17 09:10 09/30/17 09:10 Lab Statement: Any lab studies that have been ordered have been reviewed, and results considered in the medical decision making process. - Radiology CXR Xray Interpretation: Positive (See Comments) - CARDIOMEGALY WITH PULMONARY INTERSTITIAL EDEMA. Dr. Gray has reviewed this report. Radiology Interpretation Completed By: Radiologist - EKG 08:41 EKG Rhythm: Atrial Fibrillation - 135 BPM EKG Interpretation: Nonspecific T abnormalities lateral leads Disposition - Course Course Of Treatment: Medications reviewed. Allergies noted. BP noted and advised to follow up with PCP. ADMIT HOSPITALIST. CRITICAL CARE TIME LESS THAN 30 MINUTES. - Diagnoses Provider Diagnoses: Hypertension, COPD exacerbation, CHF (congestive heart failure), Dyspnea Discharge - Sign-Out/Discharge Documenting (check all that apply): Discharge - Discharge Plan Condition: Stable Disposition: ADMITTED TO [facility] - Billing Disposition and Condition Condition: STABLE [place] [place] documentation as recorded by the Parrish zapata Jennifer accurately reflects the service I personally performed and the decisions made by me, Dino Gray MD.
[2017-09-30] MEDS: oxyCODONE TAB* 5 MG TAB PO PRN (17:12)
[2017-09-30] MEDS: ALPRAZolam TAB* 0.5 MG PO PRN (17:12)
[2017-09-30] MEDS: Carvedilol TAB* 25 MG PO SCH ×2 (18:48→20:13)
[2017-09-30] MEDS: Mometasone/Formoter 200/5 MDI INH SCH (19:52)
[2017-09-30] MEDS: QUEtiapine TAB* 100 MG PO SCH (20:12)
[2017-09-30] MEDS: Torsemide TAB* 20 MG PO SCH (20:12)
[2017-09-30] MEDS: traZODone TAB* 100 MG PO SCH (20:12)
[2017-09-30] MEDS: Docusate CAP* 100 MG PO SCH (20:12)
[2017-09-30 21:07] LABS: Urine Appearance Cloudy; Urine Blood Negative (Negative); Urine Color Yellow; Urine Ketones Negative (Negative); Urine Protein 2+(100 mg/dL) (Negative); Urine Urobilinogen Negative (Negative)
[2017-10-01] MEDS: Albuterol/Ipratropium NEB.SOL* Albuterol 2.5 MG/Ipratropium 0.5 MG 3 ML INH SCH ×4 (02:49→20:25)
[2017-10-01 04:37] LABS: Hematocrit 34 % (35-47); Hemoglobin 10.4 g/dl (12.0-16.0); Mean Corpuscular HGB Conc 31 g/dl (31-36); Mean Corpuscular Hemoglobin 26 pg (27-31); Mean Corpuscular Volume 83 fL (80-97); Mean Platelet Volume 10.3 um3 (7.4-10.4); Platelet Count 132 10^3/ul (150-450); Red Blood Count 4.02 10^6/ul (4.0-5.4); Red Cell Distribution Width 20 % (10.5-15)
[2017-10-01 04:48] LABS: INR 3.32 (0.77-1.02)
[2017-10-01 04:50] LABS: EGFR Non-African American 44.2 (>60)
[2017-10-01 05:00] LABS: ABS Basophils 0 10^3/ul (0-0.2); ABS Eosinophils 0 10^3/ul (0-0.6); ABS Lymphocytes 0.6 10^3/ul (1.0-4.8); ABS Monocytes 0.1 10^3/ul (0-0.8); ABS Neutrophils 3.3 10^3/ul (1.5-7.7); ABS Nucleated RBC 0 10^3/ul; Eosinophil % 0 % (0-6); Lymphocyte % 15.5 % (25-47); Nucleated Red Blood Cells % 0.3
[2017-10-01] MEDS: ALPRAZolam TAB* 0.5 MG PO PRN (06:11)
[2017-10-01] MEDS: Mometasone/Formoter 200/5 MDI INH SCH ×2 (07:13→20:27)
[2017-10-01] MEDS: Oseltamivir CAP* 30 MG CAP PO SCH ×2 (07:58→21:32)
[2017-10-01] MEDS: Carvedilol TAB* 25 MG PO SCH ×2 (07:58→21:31)
[2017-10-01] MEDS: traMADol TAB* 50 MG PO PRN (07:58)
[2017-10-01] MEDS: predniSONE TAB* 20 MG PO SCH (07:58)
[2017-10-01] MEDS: Atorvastatin* 20 MG TAB PO SCH (07:58)
[2017-10-01] MEDS: Docusate CAP* 100 MG PO SCH ×2 (07:59→21:33)
[2017-10-01] MEDS: Multivitamins/Minerals TAB PO SCH (07:59)
[2017-10-01] MEDS: Spironolactone TAB* 25 MG PO SCH (07:59)
[2017-10-01] MEDS: Potassium Chlor TAB* 20 MEQ TAB.ER PO SCH (07:59)
[2017-10-01] MEDS: Torsemide TAB* 20 MG PO SCH (07:59)
[2017-10-01] MEDS: Lisinopril TAB* 10 MG PO SCH (08:00)
--- NOTE | 2017-10-01 08:14 | PN ---
Subjective Date of Service: 10/01/17 Interval History: HOSPITALIST PROGRESS NOTE Patient seen and examined at bedside. Care reviewed and d/w Sia KERR. She feels worse this AM, more dyspneic, with SO2 in the 80s, requiring 6 liters of supplemental O2 now. Denies CP. UO>2000ml. Family History: Unchanged from Admission Social History: Unchanged from Admission Past Medical History: Unchanged from Admission Objective Active Medications: Acetaminophen (Tylenol Tab*) 650 mg PO Q4H PRN PRN Reason: FEVER/PAIN Albuterol (Ventolin 2.5 Mg/3 Ml Neb.Lois*) 2.5 mg INH Q2H PRN PRN Reason: SOB/WHEEZING Albuterol/Ipratropium (Duoneb (Albuterol 2.5 Mg/Ipratropium 0.5 Mg)) 1 neb INH Q4H [facility] Last Admin: 10/01/17 07:13 Dose: 1 neb Alprazolam (Xanax Tab*) 0.5 mg PO TID PRN PRN Reason: ANXIETY Last Admin: 10/01/17 06:11 Dose: 0.5 mg Atorvastatin Calcium (Lipitor*) 20 mg PO DAILY [facility] Last Admin: 10/01/17 07:58 Dose: 20 mg Carvedilol (Coreg Tab*) 50 mg PO BID [facility] Last Admin: 10/01/17 07:58 Dose: 50 mg Cyclobenzaprine HCl (Flexeril Tab*) 10 mg PO TID PRN PRN Reason: PAIN Docusate Sodium (Colace Cap*) 100 mg PO BID [facility] Last Admin: 10/01/17 07:59 Dose: 100 mg Azithromycin 500 mg/ Sodium (Chloride) 250 mls @ 250 mls/hr IVPB Q24H [facility] Last Admin: 09/30/17 12:58 Dose: 250 mls/hr Diltiazem HCl (Cardizem Iv Advan*) 100 mg in 100 mls @ 5 mls/hr IVPB .PER PARAMETERS LIYAH; 5 MG/HR PRN Reason: Protocol Last Admin: 09/30/17 19:08 Dose: 5 mls/hr Lisinopril (Prinivil Tab*) 20 mg PO DAILY [facility] Last Admin: 10/01/17 08:00 Dose: 20 mg Mometasone Furoate/Formoterol Fumar (Dulera 200/5 Mdi*) 2 puff INH BID [facility] Last Admin: 10/01/17 07:13 Dose: 2 puff Multivitamins/Minerals (Theragran/Minerals Tab*) 1 tab PO DAILY [facility] Last Admin: 10/01/17 07:59 Dose: 1 tab Oseltamivir Phosphate (Tamiflu Cap*) 30 mg PO BID [facility] Stop: 10/04/17 21:01 Last Admin: 10/01/17 07:58 Dose: 30 mg Oxycodone HCl (Roxycodone Tab*) 5 mg PO Q6H PRN PRN Reason: PAIN Last Admin: 09/30/17 17:12 Dose: 5 mg Potassium Chloride (Klor Con Er Tab*) 20 meq PO DAILY [facility] Last Admin: 10/01/17 07:59 Dose: 20 meq Prednisone (Deltasone Tab*) 60 mg PO DAILY [facility] Last Admin: 10/01/17 07:58 Dose: 60 mg Quetiapine Fumarate (Seroquel Tab*) 800 mg PO BEDTIME [facility] Last Admin: 09/30/17 20:12 Dose: 800 mg Spironolactone (Aldactone Tab*) 50 mg PO DAILY [facility] Last Admin: 10/01/17 07:59 Dose: 50 mg Torsemide (Demadex*) 20 mg PO BID [facility] Last Admin: 10/01/17 07:59 Dose: 20 mg Tramadol HCl (Ultram*) 50 mg PO Q6HR PRN PRN Reason: PAIN Last Admin: 10/01/17 07:58 Dose: 50 mg Trazodone HCl (Desyrel Tab*) 100 mg PO BEDTIME [facility] Last Admin: 09/30/17 20:12 Dose: 100 mg Vital Signs - 8 hr 10/01/17 10/01/17 10/01/17 00:27 00:57 01:00 Temperature Pulse Rate 78 Respiratory 18 17 Rate Blood Pressure 111/76 (mmHg) O2 Sat by Pulse 91 92 Oximetry 10/01/17 10/01/17 10/01/17 01:48 02:00 02:01 Temperature Pulse Rate 85 93 Respiratory 22 17 20 Rate Blood Pressure 127/103 (mmHg) O2 Sat by Pulse 93 97 Oximetry 10/01/17 10/01/17 10/01/17 02:49 03:00 03:10 Temperature Pulse Rate 94 88 Respiratory 18 18 17 Rate Blood Pressure 130/92 (mmHg) O2 Sat by Pulse 93 93 Oximetry 10/01/17 10/01/17 10/01/17 04:00 04:01 04:54 Temperature 96.9 F Pulse Rate 79 Respiratory 16 16 18 Rate Blood Pressure (mmHg) O2 Sat by Pulse 94 Oximetry 10/01/17 10/01/17 10/01/17 05:00 05:33 06:00 Temperature Pulse Rate 80 97 Respiratory 15 23 Rate Blood Pressure 122/95 (mmHg) O2 Sat by Pulse 94 88 Oximetry 10/01/17 10/01/17 06:11 07:14 Temperature Pulse Rate 89 Respiratory 25 17 Rate Blood Pressure (mmHg) O2 Sat by Pulse 87 Oximetry Oxygen Devices in Use Now: Nasal Cannula - 6 liters Appearance: Morbid obese lady lying in bed in NAD. Eyes: No Scleral Icterus Ears/Nose/Mouth/Throat: Mucous Membranes Moist Neck: - - +JVD at 45 degrees Respiratory: Symmetrical Chest Expansion and Respiratory Effort, - - BS+ bilaterally with bilateral wheezes and crackles Cardiovascular: - - Normal S1 and S2, irregularly irregular Abdominal: - - Obese, BS+ Extremities: - - Trace LE edema Neurological: Alert and Oriented x 3, NL Muscle Strength and Tone Result Diagrams: 10/01/17 04:25 10/01/17 04:25 Assess/Plan/Problems-Billing Assessment: Mrs. Robledo is a 62yo M with PMH of morbid obesity with BMI 54, bilateral PEs 07/01 with cor pulmonale, mantle cell lymphoma, CKD stage 3, Afib, CHF with EF 35-40%, s/p AICD, FRANCIS, HTN, HLD, who presented to ED with c/o SOB and cough, found to have respiratory failure secondary to COPD exacerbation. - Patient Problems (1) Acute respiratory failure with hypoxemia Comment: - Multifactorial in the setting of COPD and CHF exacerbations. - Continue supplemental O2. (2) COPD exacerbation Comment: - Secondary to viral bronchitis, presumed Influenza. - Continue bronchodilators, steroids, Tamiflu, Ceftriaxone, and Zithromax. (3) Influenza Comment: - Presumed Influenza. - Continue Tamiflu. (4) Acute exacerbation of CHF (congestive heart failure) Comment: - Will give her Torsemide PO and monitor UO - may need IV diuretics. - Repeat echo. - Continue beta regina and ACEI. (5) Afib Comment: - Rate is controlled now, off Cardizem drip. - Continue Caverdilol and Warfarin, resume Cardizem PO. (6) Mantle cell lymphoma Comment: - Will d/w Oncology when to resume Ibrutinib. (7) DVT prophylaxis Comment: - Warfarin. (8) Full code status Status and Disposition: Inpatient. Will remain in ICU for now as she's still dyspneic and has increased Oxygen needs.
[2017-10-01] MEDS ORDERED: methylPREDNISolone SOD 40 MG* 1 ML VIAL IV SCH (09:00)
[2017-10-01] MEDS: cefTRIAXone(*) 1 GM in NS 0.9% 50 ML* 50 ML IVPB SCH (09:12)
[2017-10-01] MEDS: Diltiazem CD CAP* 180 MG PO SCH (09:12)
[2017-10-01] MEDS: oxyCODONE TAB* 5 MG TAB PO PRN (09:40)
[2017-10-01] MEDS ORDERED: Perflutren Lipid Microsphere* 3 ML VIAL ONE (10:14)
--- NOTE | 2017-10-01 12:21 | ECHO ---
Patient: MARYCHUY DELGADO [facility] Rec#: [id number] : 1955 Date: 10/01/2017 Age: 62y Height: 162.56 cm / 64.0 in Weight: 141.52 kg / 311.9 lbs Sex: F BSA: 2.36 Room#: [facility] Admit Date#: 09/30/2017 Type: Inpatient Referring: Cassidy Gaytan MD Reading: Arnoldo Silva MD Block Operator: USR Block Operator: USR Block Operator: Sia Prakash RDCS CC: Blake Stuart MD CC: Hill Jc MD Transthoracic Echocardiogram Indication: CHF // Pulmonary HTN BP: 119/90 HR: 71 Rhythm: A-Fib Findings History: Prior PE, Mantle Cell Lymphoma,CAD,a-fib,CHF,anemia,COPD with FRANCIS,HTN,HLD. Technical Comments: The study is technically limited due to patient body habitus. Definity used to enhance images. Completed at 1111. The study is technically limited due to the patient's history of COPD. Left Ventricle: The left ventricular chamber size is normal. Mild concentric left ventricular hypertrophy is observed. Moderate global hypokinesis of the left ventricle is observed. There is moderately decreased left ventricular systolic function. The estimated ejection fraction is 35-40%. The assessment of diastolic function is non-diagnostic. Left Atrium: The left atrium is moderate to severely dilated. Right Ventricle: The right ventricle is mildly dilated. The right ventricular global systolic function is mildly reduced. A pacemaker wire is visualized in the right ventricle. Right Atrium: The right atrium is moderate to severely dilated. Aortic Valve: The aortic valve is trileaflet. There is no evidence of aortic valve thickening. There is no evidence of aortic regurgitation. There is no evidence of aortic stenosis. Mitral Valve: The mitral valve leaflets are mildly thickened. There is mild to moderate mitral regurgitation. Tricuspid Valve: The tricuspid valve leaflets are normal. There is mild tricuspid regurgitation. There is evidence of mild pulmonary hypertension. Pulmonic Valve: The pulmonic valve appears normal. There is a trace pulmonic regurgitation. There is no pulmonic stenosis. Pericardium: There is no significant pericardial effusion. A pericardial fat pad is visualized. Aorta: There is mild dilatation of the ascending aorta. The aortic arch is not well visualized. There is no dilation of the aortic root. Pulmonary Artery: The main pulmonary artery is not well visualized. Venous: The venous system is not well visualized. Contrast: Definity was used to optimize study. A total of 4 ml used. Intravenous contrast was used to enhance endocardial border definition. Conclusions There is moderately decreased left ventricular systolic function. The estimated ejection fraction is 35-40%. Moderate global hypokinesis of the left ventricle is observed. The left ventricular chamber size is normal. Mild concentric left ventricular hypertrophy is observed. The left atrium is moderate to severely dilated. The right ventricle is mildly dilated. The right ventricular global systolic function is mildly reduced. The right atrium is moderate to severely dilated. There is mild to moderate mitral regurgitation. There is mild tricuspid regurgitation. There is evidence of mild pulmonary hypertension. There is mild dilatation of the ascending aorta. Since the prior echocardiogram completed, pertinent change is prior no dilatation noted in the ascending aorta. Measurements Name Value Normal Range RVIDd (AP) 2D 4.3 cm (0.9 - 2.6) RAd ISD 4CH 6.5 cm (3.4 - 4.9) RA (A4C)W 4.2 cm (2.9 - 4.6) IVSd (2D) 1.2 cm (0.6 - 1) LVPWd (2D) 1.4 cm (0.6 - 1) LVIDd (2D) 4.9 cm (3.6 - 5.4) LVIDs (2D) 3.1 cm - LV FS (2D) 30 % (25 - 45) Aortic Annulus 1.8 cm (1.4 - 2.6) Ao root diameter (2D) 3 cm (2.1 - 3.5) Ascending Ao 3.5 cm (2.1 - 3.4) LA dimension (AP) 2D 5.1 cm (2.3 - 3.8) LAd ISD 4CH 6.8 cm (2.9 - 5.3) LA ISD 4CH W 5.3 cm (2.5 - 4.5) Name Value Normal Range MV E-wave Vmax 1.1 m/sec - MV deceleration time 181 msec - LV septal e' Vmax 0.06 m/sec - LV lateral e' Vmax 0.12 m/sec - LV E:e' septal ratio 18.33 ratio - LV E:e' lateral ratio 9.17 ratio - Name Value Normal Range AV Vmax 1.2 m/sec - AV VTI 22.12 cm - AV peak gradient 6.1 mmHg - AV mean gradient 3.25 mmHg - LVOT Vmax 0.9 m/sec - LVOT VTI 16.9 cm - LVOT peak gradient 3.21 mmHg - LVOT mean gradient 1.45 mmHg - Name Value Normal Range MR Vmax 4.4 m/sec - MR VTI 135 cm - Name Value Normal Range TR Vmax 2.8 m/sec - TR peak gradient 32 mmHg - RAP 8 mmHg - RVSP 40 mmHg - Name Value Normal Range PV Vmax 0.7 m/sec - PV peak gradient 1.8 mmHg -
[2017-10-01] MEDS ORDERED: Albuterol HFA INHALER* 8 gm MDI INH SCH (13:00)
[2017-10-01] MEDS: Azithromycin IV(*) 500 MG in NS 0.9% 250 ML* 250 ML IVPB SCH (13:04)
[2017-10-01] MEDS ORDERED: Furosemide IV* 10 MG/ML VIAL (40 MG) IV SLOW PU ONE (13:30)
[2017-10-01] MEDS ORDERED: Furosemide IV* 10 MG/ML VIAL (40 MG) ONE (15:19)
[2017-10-01] MEDS ORDERED: Warfarin TAB(*) 10 MG PO SCH (17:00)
[2017-10-01] MEDS: methylPREDNISolone SOD 40 MG* 1 ML VIAL IV SCH (21:31)
[2017-10-01] MEDS: Acetaminophen TAB* 325 MG PO PRN (21:32)
[2017-10-01] MEDS: QUEtiapine TAB* 100 MG PO SCH (21:32)
[2017-10-01] MEDS: traZODone TAB* 100 MG PO SCH (21:38)
[2017-10-02] MEDS: Albuterol/Ipratropium NEB.SOL* Albuterol 2.5 MG/Ipratropium 0.5 MG 3 ML INH SCH ×3 (01:08→13:23)
[2017-10-02] MEDS: Acetaminophen TAB* 325 MG PO PRN ×2 (02:30→09:10)
[2017-10-02 06:01] LABS: INR 2.51 (0.77-1.02)
[2017-10-02 06:07] LABS: EGFR Non-African American 25.5 (>60)
[2017-10-02 06:11] LABS: ABS Basophils 0 10^3/ul (0-0.2); ABS Eosinophils 0 10^3/ul (0-0.6); ABS Lymphocytes 0.3 10^3/ul (1.0-4.8); ABS Monocytes 0.2 10^3/ul (0-0.8); ABS Neutrophils 7.4 10^3/ul (1.5-7.7); ABS Nucleated RBC 0 10^3/ul; Eosinophil % 0 % (0-6); Hematocrit 37 % (35-47); Hemoglobin 11.3 g/dl (12.0-16.0); Lymphocyte % 4.3 % (25-47); Mean Corpuscular HGB Conc 31 g/dl (31-36); Mean Corpuscular Hemoglobin 26 pg (27-31); Mean Corpuscular Volume 84 fL (80-97); Mean Platelet Volume 10.5 um3 (7.4-10.4); Nucleated Red Blood Cells % 0.2; Platelet Count 152 10^3/ul (150-450); Red Blood Count 4.33 10^6/ul (4.0-5.4); Red Cell Distribution Width 20 % (10.5-15); White Blood Count 8.1 10^3/ul (3.5-10.8)
[2017-10-02] MEDS ORDERED: Furosemide IV* 10 MG/ML VIAL (40 MG) IV SLOW PU ONE (07:18)
[2017-10-02] MEDS: Lisinopril TAB* 10 MG PO SCH (08:00)
[2017-10-02] MEDS: Multivitamins/Minerals TAB PO SCH (08:01)
[2017-10-02] MEDS: Atorvastatin* 20 MG TAB PO SCH (08:01)
[2017-10-02] MEDS: Carvedilol TAB* 25 MG PO SCH ×2 (08:01→21:21)
[2017-10-02] MEDS: Docusate CAP* 100 MG PO SCH ×2 (08:01→21:21)
[2017-10-02] MEDS: Diltiazem CD CAP* 180 MG PO SCH (08:02)
[2017-10-02] MEDS: Potassium Chlor TAB* 20 MEQ TAB.ER PO SCH (08:02)
[2017-10-02] MEDS: Oseltamivir CAP* 30 MG CAP PO SCH ×2 (08:02→21:21)
[2017-10-02] MEDS: cefTRIAXone(*) 1 GM in NS 0.9% 50 ML* 50 ML IVPB SCH (08:03)
[2017-10-02] MEDS: Spironolactone TAB* 25 MG PO SCH (08:03)
[2017-10-02] MEDS: methylPREDNISolone SOD 40 MG* 1 ML VIAL IV SCH ×2 (08:07→21:21)
--- NOTE | 2017-10-02 08:15 | PN ---
Subjective Date of Service: 10/02/17 Interval History: HOSPITALIST PROGRESS NOTE Patient seen and examined at bedside. She feels a little better today. Still dyspneic, but less intense than yesterday. Denies chest pain or palpitations. Was seen by Dr. Yoontic the week of admission, found to be in Afib with a faster rate. He added Cardizem to her regimen but she was unable to pick it up at the Pharmacy. Family History: Unchanged from Admission Social History: Unchanged from Admission Past Medical History: Unchanged from Admission Objective Active Medications: Acetaminophen (Tylenol Tab*) 650 mg PO Q4H PRN PRN Reason: FEVER/PAIN Last Admin: 10/02/17 02:30 Dose: 650 mg Albuterol (Ventolin 2.5 Mg/3 Ml Neb.Lois*) 2.5 mg INH Q2H PRN PRN Reason: SOB/WHEEZING Albuterol/Ipratropium (Duoneb (Albuterol 2.5 Mg/Ipratropium 0.5 Mg)) 1 neb INH Q6H [facility] Last Admin: 10/02/17 01:08 Dose: 1 neb Alprazolam (Xanax Tab*) 0.5 mg PO TID PRN PRN Reason: ANXIETY Last Admin: 10/01/17 06:11 Dose: 0.5 mg Atorvastatin Calcium (Lipitor*) 20 mg PO DAILY [facility] Last Admin: 10/02/17 08:01 Dose: 20 mg Carvedilol (Coreg Tab*) 50 mg PO BID [facility] Last Admin: 10/02/17 08:01 Dose: 50 mg Cyclobenzaprine HCl (Flexeril Tab*) 10 mg PO TID PRN PRN Reason: PAIN Diltiazem HCl (Cardizem Cd Cap*) 180 mg PO DAILY [facility] Last Admin: 10/02/17 08:02 Dose: 180 mg Docusate Sodium (Colace Cap*) 100 mg PO BID [facility] Last Admin: 10/02/17 08:01 Dose: 100 mg Azithromycin 500 mg/ Sodium (Chloride) 250 mls @ 250 mls/hr IVPB Q24H [facility] Last Admin: 10/01/17 13:04 Dose: 250 mls/hr Ceftriaxone Sodium 1 gm/ (Sodium Chloride) 50 mls @ 200 mls/hr IVPB Q24H [facility] Last Admin: 10/02/17 08:03 Dose: 200 mls/hr Lisinopril (Prinivil Tab*) 20 mg PO DAILY [facility] Last Admin: 10/02/17 08:00 Dose: 20 mg Methylprednisolone Sodium Succinate (Solu-Medrol 40 Mg) 40 mg IV Q12HR [facility] Last Admin: 10/02/17 08:07 Dose: 40 mg Mometasone Furoate/Formoterol Fumar (Dulera 200/5 Mdi*) 2 puff INH BID [facility] Last Admin: 10/01/17 20:27 Dose: 2 puff Multivitamins/Minerals (Theragran/Minerals Tab*) 1 tab PO DAILY [facility] Last Admin: 10/02/17 08:01 Dose: 1 tab Oseltamivir Phosphate (Tamiflu Cap*) 30 mg PO BID [facility] Stop: 10/04/17 21:01 Last Admin: 10/02/17 08:02 Dose: 30 mg Oxycodone HCl (Roxycodone Tab*) 5 mg PO Q6H PRN PRN Reason: PAIN Last Admin: 10/01/17 09:40 Dose: 5 mg Pharmacy Profile Note (Coumadin Daily Reminder*) 0 note FOLLOW UP 1700 [facility] Last Admin: 10/01/17 17:23 Dose: 1 note Potassium Chloride (Klor Con Er Tab*) 20 meq PO DAILY [facility] Last Admin: 10/02/17 08:02 Dose: 20 meq Quetiapine Fumarate (Seroquel Tab*) 800 mg PO BEDTIME [facility] Last Admin: 10/01/17 21:32 Dose: 800 mg Spironolactone (Aldactone Tab*) 50 mg PO DAILY [facility] Last Admin: 10/02/17 08:03 Dose: 50 mg Tramadol HCl (Ultram*) 50 mg PO Q6HR PRN PRN Reason: PAIN Last Admin: 10/01/17 07:58 Dose: 50 mg Trazodone HCl (Desyrel Tab*) 100 mg PO BEDTIME [facility] Last Admin: 10/01/17 21:38 Dose: 100 mg Warfarin Sodium (Coumadin Tab(*)) 10 mg PO DAILY@1700 [facility] PRN Reason: Protocol Last Admin: 10/01/17 17:21 Dose: 10 mg Vital Signs - 8 hr 10/02/17 10/02/17 10/02/17 00:28 01:00 01:09 Temperature Pulse Rate 84 87 86 Respiratory 15 18 13 Rate Blood Pressure 92/67 (mmHg) O2 Sat by Pulse 90 93 96 Oximetry 10/02/17 10/02/17 10/02/17 01:11 02:00 02:01 Temperature Pulse Rate 77 Respiratory 18 15 13 Rate Blood Pressure 76/60 (mmHg) O2 Sat by Pulse 93 Oximetry 10/02/17 10/02/17 10/02/17 02:21 02:35 03:00 Temperature Pulse Rate 92 78 Respiratory 18 21 20 Rate Blood Pressure 117/75 99/74 (mmHg) O2 Sat by Pulse 95 88 Oximetry Oxygen Devices in Use Now: Nasal Cannula - 6 liters Appearance: Morbid obese lady sitting up in bed in NAD. Eyes: No Scleral Icterus Ears/Nose/Mouth/Throat: Mucous Membranes Moist Neck: Trachea Midline Respiratory: Symmetrical Chest Expansion and Respiratory Effort, - - BS+ bilaterally decreased in bases, bilateral crackles and scattered wheezes Cardiovascular: - - Normal S1 and S2, irregularly irregular Abdominal: NL Sounds; No Tenderness; No Distention - obese Extremities: - - Trace edema Neurological: Alert and Oriented x 3, NL Muscle Strength and Tone Result Diagrams: 10/02/17 05:30 10/02/17 06:20 Assess/Plan/Problems-Billing Assessment: Mrs. 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 - Patient Problems (1) Acute respiratory failure with hypoxemia Comment: - Multifactorial in the setting of COPD and CHF exacerbations. - Continue supplemental O2 - requirements remain stable around 6 liters. (2) COPD exacerbation Comment: - Secondary to viral bronchitis, presumed Influenza. - Continue bronchodilators, steroids, Tamiflu, Ceftriaxone, and Zithromax. (3) Influenza Comment: - Presumed Influenza. - Continue Tamiflu. (4) Acute exacerbation of CHF (congestive heart failure) Comment: - Repeat echo is unchanged. - Will diurese with Furosemide. May need to reduce other meds to have enough BP room for diuresis. - Continue beta regina and ACEI. - Has lost 3 lbs so far. (5) Afib Comment: - Seen by Dr. Goodwin 09/27/17 - her Afib rate was not well controlled during the visit and he felt this could be in part related to Ibrutinib. He added Cardizem 180mg/day but patient was unable to pick it up. He was planning to see her 1 week after her visit as he was concerned she did not tolerate Afib RVR in the past with worsening CHF. He had stopped amiodarone given its toxicity and felt Tykosin or Sotalol would be difficult due her Seroquel use. His plan was for BERTO/CV if she remained in rapid Afib with beta regina and diltiazem. - Rate is controlled now, off Cardizem drip - continue Coreg and Cardizem PO - Continue Warfarin. (6) Mantle cell lymphoma Comment: - Discussed Ibrutinib with Dr Jc - as patient was admitted with decompensation of her Afib, he agrees with holding the medication for now, but would recommended resuming it on discharge. (7) DVT prophylaxis Comment: - Warfarin. (8) Full code status Status and Disposition: Inpatient. Transfer to Telemetry floor.
[2017-10-02] MEDS ORDERED: Dextrose 50% Syringe 50 ML* 25 GM/50 ML SYRINGE IV PUSH PRN (08:30)
[2017-10-02] MEDS: Mometasone/Formoter 200/5 MDI INH SCH ×2 (09:19→20:41)
[2017-10-02] MEDS: Azithromycin IV(*) 500 MG in NS 0.9% 250 ML* 250 ML IVPB SCH (12:51)
[2017-10-02] MEDS: Insulin LISPRO* 1 UNITS UNIT SUBCUT SCH ×3 (12:56→21:36)
[2017-10-02] MEDS: traMADol TAB* 50 MG PO PRN (12:58)
[2017-10-02] MEDS ORDERED: Spiriva Inhaler DEVICE* 1 EACH DEVICE SCH (14:00)
[2017-10-02] MEDS ORDERED: Spiriva Inhaler DEVICE* 1 EACH DEVICE INH SCH (14:00)
[2017-10-02] MEDS: ALPRAZolam TAB* 0.5 MG PO PRN (14:16)
[2017-10-02] MEDS: Warfarin TAB(*) 5 MG PO SCH (17:24)
[2017-10-02] MEDS: QUEtiapine TAB* 100 MG PO SCH (21:20)
[2017-10-02] MEDS: traZODone TAB* 100 MG PO SCH (21:21)
[2017-10-02] MEDS: Albuterol 2.5 MG/3 ML NEB.SOL* (0.083%) INH PRN (23:53)
[2017-10-03] MEDS: traMADol TAB* 50 MG PO PRN (00:04)
[2017-10-03] MEDS: oxyCODONE TAB* 5 MG TAB PO PRN ×2 (06:58→17:02)
[2017-10-03] MEDS: Carvedilol TAB* 25 MG PO SCH ×2 (08:23→20:49)
[2017-10-03] MEDS: Lisinopril TAB* 10 MG PO SCH (08:23)
[2017-10-03] MEDS: Insulin LISPRO* 1 UNITS UNIT SUBCUT SCH ×4 (08:23→21:34)
[2017-10-03] MEDS: Docusate CAP* 100 MG PO SCH ×2 (08:23→20:50)
[2017-10-03] MEDS: Atorvastatin* 20 MG TAB PO SCH (08:23)
[2017-10-03] MEDS: Spironolactone TAB* 25 MG PO SCH (08:23)
[2017-10-03] MEDS: Potassium Chlor TAB* 20 MEQ TAB.ER PO SCH (08:24)
[2017-10-03] MEDS: Diltiazem CD CAP* 180 MG PO SCH (08:24)
[2017-10-03] MEDS: Multivitamins/Minerals TAB PO SCH (08:24)
[2017-10-03] MEDS: methylPREDNISolone SOD 40 MG* 1 ML VIAL IV SCH ×2 (08:24→20:48)
[2017-10-03] MEDS: ALPRAZolam TAB* 0.5 MG PO PRN (08:24)
[2017-10-03] MEDS: cefTRIAXone(*) 1 GM in NS 0.9% 50 ML* 50 ML IVPB SCH (08:24)
[2017-10-03] MEDS: Oseltamivir CAP* 30 MG CAP PO SCH ×2 (08:25→21:35)
[2017-10-03] MEDS: Tiotropium CAP.INH* CAP.INH/18 MCG (USE ORDER SET !) INH SCH (09:17)
[2017-10-03] MEDS: Mometasone/Formoter 200/5 MDI INH SCH ×2 (09:17→19:45)
[2017-10-03] MEDS ORDERED: Furosemide IV* 10 MG/ML 2 ML VIAL (20 MG) IV SLOW PU ONE (10:29)
[2017-10-03 10:56] LABS: EGFR Non-African American 33.6 (>60)
[2017-10-03 11:26] LABS: INR 3.38 (0.77-1.02)
[2017-10-03] MEDS: Albuterol 2.5 MG/3 ML NEB.SOL* (0.083%) INH SCH ×4 (11:49→22:34)
[2017-10-03] MEDS: Azithromycin TAB* 250 MG PO SCH (12:50)
--- NOTE | 2017-10-03 14:55 | PN ---
Subjective Date of Service: 10/03/17 Interval History: HOSPITALIST PROGRESS NOTE Patient seen and examined at bedside. She continues to walk to the bathroom without oxygen despite lots of education by myself and nurses. Was not comfortable last night because her BiPAP mask was leaking. Seems to be more comfortable today while at rest. Family History: Unchanged from Admission Social History: Unchanged from Admission Past Medical History: Unchanged from Admission Objective Active Medications: Acetaminophen (Tylenol Tab*) 650 mg PO Q4H PRN PRN Reason: FEVER/PAIN Last Admin: 10/02/17 09:10 Dose: 650 mg Albuterol (Ventolin 2.5 Mg/3 Ml Neb.Lois*) 2.5 mg INH Q2H PRN PRN Reason: SOB/WHEEZING Last Admin: 10/02/17 23:53 Dose: 2.5 mg Albuterol (Ventolin 2.5 Mg/3 Ml Neb.Lois*) 2.5 mg INH [id number] Last Admin: 10/03/17 11:49 Dose: 2.5 mg Alprazolam (Xanax Tab*) 0.5 mg PO TID PRN PRN Reason: ANXIETY Last Admin: 10/03/17 08:24 Dose: 0.5 mg Atorvastatin Calcium (Lipitor*) 20 mg PO DAILY [facility] Last Admin: 10/03/17 08:23 Dose: 20 mg Azithromycin (Zithromax Tab*) 250 mg PO DAILY@1300 [facility] Stop: 10/04/17 13:01 Last Admin: 10/03/17 12:50 Dose: 250 mg Carvedilol (Coreg Tab*) 50 mg PO BID [facility] Last Admin: 10/03/17 08:23 Dose: 50 mg Cyclobenzaprine HCl (Flexeril Tab*) 10 mg PO TID PRN PRN Reason: PAIN Device (Tiotropium Inhaler Device*) 1 each .SEE ORDER .USE w/ SPIRIVA CAPS [facility] Dextrose (D50w Syringe 50 Ml*) 12.5 gm IV PUSH .FOR FS < 60 - SS PRN PRN Reason: FS < 60 Diltiazem HCl (Cardizem Cd Cap*) 180 mg PO DAILY [facility] Last Admin: 10/03/17 08:24 Dose: 180 mg Docusate Sodium (Colace Cap*) 100 mg PO BID [facility] Last Admin: 10/03/17 08:23 Dose: 100 mg Ceftriaxone Sodium 1 gm/ (Sodium Chloride) 50 mls @ 200 mls/hr IVPB Q24H [facility] Last Admin: 10/03/17 08:24 Dose: 200 mls/hr Insulin Human Lispro (Humalog*) 0 units SUBCUT ACHS [facility] PRN Reason: Protocol Last Admin: 10/03/17 12:50 Dose: 3 unit Lisinopril (Prinivil Tab*) 20 mg PO DAILY [facility] Last Admin: 10/03/17 08:23 Dose: 20 mg Methylprednisolone Sodium Succinate (Solu-Medrol 40 Mg) 40 mg IV Q12HR [facility] Last Admin: 10/03/17 08:24 Dose: 40 mg Mometasone Furoate/Formoterol Fumar (Dulera 200/5 Mdi*) 2 puff INH BID [facility] Last Admin: 10/03/17 09:17 Dose: 2 puff Multivitamins/Minerals (Theragran/Minerals Tab*) 1 tab PO DAILY [facility] Last Admin: 10/03/17 08:24 Dose: 1 tab Oseltamivir Phosphate (Tamiflu Cap*) 30 mg PO BID [facility] Stop: 10/04/17 21:01 Last Admin: 10/03/17 08:25 Dose: 30 mg Oxycodone HCl (Roxycodone Tab*) 5 mg PO Q6H PRN PRN Reason: PAIN Last Admin: 10/03/17 06:58 Dose: 5 mg Pharmacy Profile Note (Coumadin Daily Reminder*) 0 note FOLLOW UP 1700 [facility] Last Admin: 10/02/17 17:25 Dose: 1 note Quetiapine Fumarate (Seroquel Tab*) 800 mg PO BEDTIME [facility] Last Admin: 10/02/17 21:20 Dose: 800 mg Spironolactone (Aldactone Tab*) 50 mg PO DAILY [facility] Last Admin: 10/03/17 08:23 Dose: 50 mg Tiotropium [place] (Spiriva Cap.Inh*) 1 cap INH DAILY [facility] Last Admin: 10/03/17 09:17 Dose: 1 cap Tramadol HCl (Ultram*) 50 mg PO Q6HR PRN PRN Reason: PAIN Last Admin: 10/03/17 00:04 Dose: 50 mg Trazodone HCl (Desyrel Tab*) 100 mg PO BEDTIME [facility] Last Admin: 10/02/17 21:21 Dose: 100 mg Warfarin Sodium (Coumadin Tab(*)) 15 mg PO EVERY OTHER DAY@1700 [facility] PRN Reason: Protocol Last Admin: 10/02/17 17:24 Dose: 15 mg Warfarin Sodium (Coumadin Tab(*)) 10 mg PO EVERY OTHER DAY@1700 [facility] PRN Reason: Protocol Vital Signs - 8 hr 10/03/17 10/03/17 10/03/17 06:58 08:00 08:24 Temperature Pulse Rate Respiratory 18 20 20 Rate Blood Pressure (mmHg) O2 Sat by Pulse Oximetry 10/03/17 10/03/17 10/03/17 08:47 09:25 11:54 Temperature 97.3 F Pulse Rate 87 80 82 Respiratory 24 18 18 Rate Blood Pressure 107/77 (mmHg) O2 Sat by Pulse 96 94 Oximetry 10/03/17 10/03/17 12:33 12:34 Temperature Pulse Rate 75 Respiratory 20 20 Rate Blood Pressure 154/51 (mmHg) O2 Sat by Pulse 96 Oximetry Oxygen Devices in Use Now: Nasal Cannula - 6 liters Appearance: Morbid obese lady lying in bed in NAD. Eyes: No Scleral Icterus Ears/Nose/Mouth/Throat: Mucous Membranes Moist Neck: Trachea Midline Respiratory: Symmetrical Chest Expansion and Respiratory Effort, - - BS+ bilaterally decreased with no added sounds Cardiovascular: - - Normal S1 and S2, irregularly irregular Extremities: No Edema Neurological: Alert and Oriented x 3, NL Muscle Strength and Tone Result Diagrams: 10/02/17 05:30 10/03/17 10:25 Assess/Plan/Problems-Billing Assessment: Mrs. 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 - Patient Problems (1) Acute respiratory failure with hypoxemia Comment: - Multifactorial in the setting of COPD and CHF exacerbations. - Continue supplemental O2 - requirements remain stable around 6 liters. (2) COPD exacerbation Comment: - Secondary to viral bronchitis, presumed Influenza. - Continue bronchodilators, steroids, Tamiflu, Ceftriaxone, and Zithromax. (3) Influenza Comment: - Presumed Influenza. - Continue Tamiflu. (4) Acute exacerbation of CHF (congestive heart failure) Comment: - Repeat echo is unchanged. - Will diurese with Furosemide. May need to reduce other meds to have enough BP room for diuresis. - Continue beta regina and ACEI. (5) Afib Comment: - Seen by Dr. Goodwin 09/27/17 - her Afib rate was not well controlled during the visit and he felt this could be in part related to Ibrutinib. He added Cardizem 180mg/day but patient was unable to pick it up. He was planning to see her 1 week after her visit as he was concerned she did not tolerate Afib RVR in the past with worsening CHF. He had stopped amiodarone given its toxicity and felt Tykosin or Sotalol would be difficult due her Seroquel use. His plan was for BERTO/CV if she remained in rapid Afib with beta regina and diltiazem. - Rate is controlled now, off Cardizem drip - continue Coreg and Cardizem PO - Continue Warfarin. (6) Mantle cell lymphoma Comment: - Discussed Ibrutinib with Dr Jc - as patient was admitted with decompensation of her Afib, he agrees with holding the medication for now, but would recommended resuming it on discharge. (7) DVT prophylaxis Comment: - Warfarin. (8) Full code status Status and Disposition: Inpatient.
[2017-10-03] MEDS ORDERED: Warfarin TAB(*) 10 MG PO SCH (17:00)
[2017-10-03] MEDS: QUEtiapine TAB* 100 MG PO SCH (20:48)
[2017-10-03] MEDS: traZODone TAB* 100 MG PO SCH (20:50)
[2017-10-04] MEDS: traMADol TAB* 50 MG PO PRN (00:20)
[2017-10-04] MEDS: Albuterol 2.5 MG/3 ML NEB.SOL* (0.083%) INH SCH ×4 (02:35→21:07)
[2017-10-04] MEDS: Cyclobenzaprine TAB* 10 MG PO PRN (06:33)
[2017-10-04] MEDS: Tiotropium CAP.INH* CAP.INH/18 MCG (USE ORDER SET !) INH SCH (07:13)
[2017-10-04] MEDS: Mometasone/Formoter 200/5 MDI INH SCH ×2 (07:13→21:11)
[2017-10-04] MEDS: cefTRIAXone(*) 1 GM in NS 0.9% 50 ML* 50 ML IVPB SCH (09:35)
[2017-10-04] MEDS: Insulin LISPRO* 1 UNITS UNIT SUBCUT SCH ×4 (09:35→21:59)
[2017-10-04] MEDS: Oseltamivir CAP* 30 MG CAP PO SCH ×2 (09:36→20:32)
[2017-10-04] MEDS: Atorvastatin* 20 MG TAB PO SCH (09:36)
[2017-10-04] MEDS: methylPREDNISolone SOD 40 MG* 1 ML VIAL IV SCH ×2 (09:36→20:32)
[2017-10-04] MEDS: Docusate CAP* 100 MG PO SCH ×2 (09:36→20:31)
[2017-10-04] MEDS: oxyCODONE TAB* 5 MG TAB PO PRN ×2 (09:36→16:42)
[2017-10-04] MEDS: Carvedilol TAB* 25 MG PO SCH ×2 (09:36→20:31)
[2017-10-04] MEDS: Lisinopril TAB* 10 MG PO SCH (09:37)
[2017-10-04] MEDS: Spironolactone TAB* 25 MG PO SCH (09:37)
[2017-10-04] MEDS: Diltiazem CD CAP* 180 MG PO SCH (09:37)
[2017-10-04] MEDS: Multivitamins/Minerals TAB PO SCH (09:37)
[2017-10-04] MEDS: ALPRAZolam TAB* 0.5 MG PO PRN ×2 (09:41→17:05)
[2017-10-04 11:05] LABS: INR 4.53 (0.77-1.02)
[2017-10-04] MEDS ORDERED: Furosemide IV* 10 MG/ML 2 ML VIAL (20 MG) IV SLOW PU ONE (11:21)
[2017-10-04 11:52] LABS: EGFR Non-African American 42.6 (>60)
[2017-10-04] MEDS: Azithromycin TAB* 250 MG PO SCH (12:18)
--- NOTE | 2017-10-04 16:54 | PN ---
Subjective Date of Service: 10/04/17 Interval History: HOSPITALIST PROGRESS NOTE Patient seen and examined at bedside. Despite multiple conversations about how she should ask for help before going to the bathroom and that she should go with supplemental O2 on, but she continues to try to go by herself without O2 and fell this AM. With diuretics, she has urgency to urinate and is afraid of being incontinent in bed, reason why she doesn't wait for assistance to go. She refused a Erazo earlier this admission. Denies CP, palpitations, breathing is a little better. Does not report any specific trauma during fall, did not hit head. Family History: Unchanged from Admission Social History: Unchanged from Admission Past Medical History: Unchanged from Admission Objective Active Medications: Acetaminophen (Tylenol Tab*) 650 mg PO Q4H PRN PRN Reason: FEVER/PAIN Last Admin: 10/02/17 09:10 Dose: 650 mg Albuterol (Ventolin 2.5 Mg/3 Ml Neb.Lois*) 2.5 mg INH Q2H PRN PRN Reason: SOB/WHEEZING Last Admin: 10/02/17 23:53 Dose: 2.5 mg Albuterol (Ventolin 2.5 Mg/3 Ml Neb.Lois*) 2.5 mg INH Q6H [facility] Last Admin: 10/04/17 13:30 Dose: 2.5 mg Alprazolam (Xanax Tab*) 0.5 mg PO TID PRN PRN Reason: ANXIETY Last Admin: 10/04/17 09:41 Dose: 0.5 mg Atorvastatin Calcium (Lipitor*) 20 mg PO DAILY [facility] Last Admin: 10/04/17 09:36 Dose: 20 mg Carvedilol (Coreg Tab*) 50 mg PO BID [facility] Last Admin: 10/04/17 09:36 Dose: 50 mg Cyclobenzaprine HCl (Flexeril Tab*) 10 mg PO TID PRN PRN Reason: PAIN Last Admin: 10/04/17 06:33 Dose: 10 mg Device (Tiotropium Inhaler Device*) 1 each .SEE ORDER .USE w/ SPIRIVA CAPS [facility] Dextrose (D50w Syringe 50 Ml*) 12.5 gm IV PUSH .FOR FS < 60 - SS PRN PRN Reason: FS < 60 Diltiazem HCl (Cardizem Cd Cap*) 180 mg PO DAILY [facility] Last Admin: 10/04/17 09:37 Dose: 180 mg Docusate Sodium (Colace Cap*) 100 mg PO BID [facility] Last Admin: 10/04/17 09:36 Dose: 100 mg Ceftriaxone Sodium 1 gm/ (Sodium Chloride) 50 mls @ 200 mls/hr IVPB Q24H [facility] Last Admin: 10/04/17 09:35 Dose: 200 mls/hr Insulin Human Lispro (Humalog*) 0 units SUBCUT ACHS [facility] PRN Reason: Protocol Last Admin: 10/04/17 12:18 Dose: 2 unit Lisinopril (Prinivil Tab*) 20 mg PO DAILY [facility] Last Admin: 10/04/17 09:37 Dose: 20 mg Methylprednisolone Sodium Succinate (Solu-Medrol 40 Mg) 40 mg IV Q12HR [facility] Last Admin: 10/04/17 09:36 Dose: 40 mg Mometasone Furoate/Formoterol Fumar (Dulera 200/5 Mdi*) 2 puff INH BID [facility] Last Admin: 10/04/17 07:13 Dose: 2 puff Multivitamins/Minerals (Theragran/Minerals Tab*) 1 tab PO DAILY [facility] Last Admin: 10/04/17 09:37 Dose: 1 tab Oseltamivir Phosphate (Tamiflu Cap*) 30 mg PO BID [facility] Stop: 10/04/17 21:01 Last Admin: 10/04/17 09:36 Dose: 30 mg Oxycodone HCl (Roxycodone Tab*) 5 mg PO Q6H PRN PRN Reason: PAIN Last Admin: 10/04/17 16:42 Dose: 5 mg Pharmacy Profile Note (Coumadin Daily Reminder*) 0 note FOLLOW UP 1700 [facility] Last Admin: 10/03/17 17:12 Dose: 1 note Quetiapine Fumarate (Seroquel Tab*) 800 mg PO BEDTIME [facility] Last Admin: 10/03/17 20:48 Dose: 800 mg Spironolactone (Aldactone Tab*) 50 mg PO DAILY [facility] Last Admin: 10/04/17 09:37 Dose: 50 mg Tiotropium [place] (Spiriva Cap.Inh*) 1 cap INH DAILY [facility] Last Admin: 10/04/17 07:13 Dose: 1 cap Tramadol HCl (Ultram*) 50 mg PO Q6HR PRN PRN Reason: PAIN Last Admin: 10/04/17 00:20 Dose: 50 mg Trazodone HCl (Desyrel Tab*) 100 mg PO BEDTIME [facility] Last Admin: 10/03/17 20:50 Dose: 100 mg Warfarin Sodium (Coumadin Tab(*)) 15 mg PO EVERY OTHER DAY@1700 [facility] PRN Reason: Protocol Last Admin: 10/02/17 17:24 Dose: 15 mg Warfarin Sodium (Coumadin Tab(*)) 10 mg PO EVERY OTHER DAY@1700 [facility] PRN Reason: Protocol Last Admin: 10/03/17 17:02 Dose: 10 mg Vital Signs - 8 hr 10/04/17 10/04/17 10/04/17 09:22 09:36 09:41 Temperature 96.7 F Pulse Rate 104 Respiratory 20 16 16 Rate Blood Pressure 132/67 (mmHg) O2 Sat by Pulse 96 Oximetry 10/04/17 10/04/17 10/04/17 09:51 10:11 12:20 Temperature 96.5 F 97.2 F Pulse Rate 97 97 Respiratory 16 20 20 Rate Blood Pressure 143/75 129/86 (mmHg) O2 Sat by Pulse 95 96 Oximetry 10/04/17 10/04/17 10/04/17 12:24 12:25 13:32 Temperature Pulse Rate 95 Respiratory 16 16 16 Rate Blood Pressure (mmHg) O2 Sat by Pulse 96 Oximetry 10/04/17 10/04/17 14:56 16:42 Temperature 98.4 F Pulse Rate 83 Respiratory 22 16 Rate Blood Pressure 131/63 (mmHg) O2 Sat by Pulse 96 Oximetry Oxygen Devices in Use Now: Nasal Cannula - 5 liters Appearance: Morbid obese lady sitting up in bed in [facility]. Eyes: No Scleral Icterus Ears/Nose/Mouth/Throat: Mucous Membranes Moist Neck: Trachea Midline Respiratory: Symmetrical Chest Expansion and Respiratory Effort, - - BS+ bilaterally, decreased in bases Cardiovascular: - - Normal S1 and S2 Abdominal: NL Sounds; No Tenderness; No Distention - obese Extremities: No Edema Neurological: Alert and Oriented x 3, NL Muscle Strength and Tone Result Diagrams: 10/02/17 05:30 10/04/17 10:39 Assess/Plan/Problems-Billing Assessment: Mrs. 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 - Patient Problems (1) Acute respiratory failure with hypoxemia Comment: - Multifactorial in the setting of COPD and CHF exacerbations. - Continue supplemental O2 - requirements remain stable around 5 liters. (2) COPD exacerbation Comment: - Secondary to viral bronchitis, presumed Influenza. - Continue bronchodilators, steroids, Tamiflu, Ceftriaxone, and Zithromax. (3) Influenza Comment: - Presumed Influenza. - Continue Tamiflu #5/5. (4) Acute exacerbation of CHF (congestive heart failure) Comment: - Repeat echo is unchanged. - Will diurese with Furosemide. May need to reduce other meds to have enough BP room for diuresis. - Continue beta regina and ACEI. (5) Afib Comment: - Seen by Dr. Goodwin 09/27/17 - her Afib rate was not well controlled during the visit and he felt this could be in part related to Ibrutinib. He added Cardizem 180mg/day but patient was unable to pick it up. He was planning to see her 1 week after her visit as he was concerned she did not tolerate Afib RVR in the past with worsening CHF. He had stopped amiodarone given its toxicity and felt Tykosin or Sotalol would be difficult due her Seroquel use. His plan was for BERTO/CV if she remained in rapid Afib with beta regina and diltiazem. - Rate is controlled now, off Cardizem drip - continue Coreg and Cardizem PO - Continue Warfarin. (6) Mantle cell lymphoma Comment: - Discussed Ibrutinib with Dr Jc - as patient was admitted with decompensation of her Afib, he agrees with holding the medication for now, but would recommended resuming it on discharge. (7) DVT prophylaxis Comment: - Warfarin. (8) Full code status (9) Physical deconditioning Comment: - Patient states she has 25 stairs to get inside her home. - Continue PT. Status and Disposition: Inpatient.
[2017-10-04] MEDS: Warfarin TAB(*) 5 MG PO SCH (17:08)
[2017-10-04] MEDS: traZODone TAB* 100 MG PO SCH (20:32)
[2017-10-04] MEDS: QUEtiapine TAB* 100 MG PO SCH (20:32)
[2017-10-04] MEDS: Acetaminophen TAB* 325 MG PO PRN (20:53)
[2017-10-05] MEDS: Albuterol 2.5 MG/3 ML NEB.SOL* (0.083%) INH SCH ×4 (00:57→20:53)
[2017-10-05] MEDS: oxyCODONE TAB* 5 MG TAB PO PRN ×2 (02:58→10:03)
[2017-10-05] MEDS: traMADol TAB* 50 MG PO PRN ×2 (07:20→16:55)
[2017-10-05 08:29] LABS: Hematocrit 38 % (35-47); Hemoglobin 11.9 g/dl (12.0-16.0); Mean Corpuscular HGB Conc 31 g/dl (31-36); Mean Corpuscular Hemoglobin 26 pg (27-31); Mean Corpuscular Volume 82 fL (80-97); Mean Platelet Volume 10.6 um3 (7.4-10.4); Platelet Count 126 10^3/ul (150-450); Red Blood Count 4.61 10^6/ul (4.0-5.4); Red Cell Distribution Width 20 % (10.5-15); White Blood Count 7.3 10^3/ul (3.5-10.8)
[2017-10-05 08:39] LABS: INR 3.4 (0.77-1.02)
[2017-10-05 08:41] LABS: EGFR Non-African American 45.5 (>60)
[2017-10-05] MEDS: cefTRIAXone(*) 1 GM in NS 0.9% 50 ML* 50 ML IVPB SCH (08:41)
[2017-10-05] MEDS: methylPREDNISolone SOD 40 MG* 1 ML VIAL IV SCH ×2 (08:41→20:39)
[2017-10-05] MEDS: Lisinopril TAB* 10 MG PO SCH (08:41)
[2017-10-05] MEDS: Spironolactone TAB* 25 MG PO SCH (08:41)
[2017-10-05] MEDS: ALPRAZolam TAB* 0.5 MG PO PRN ×3 (08:41→20:37)
[2017-10-05] MEDS: Diltiazem CD CAP* 180 MG PO SCH (08:41)
[2017-10-05] MEDS: Multivitamins/Minerals TAB PO SCH (08:42)
[2017-10-05] MEDS: Carvedilol TAB* 25 MG PO SCH ×2 (08:42→20:38)
[2017-10-05] MEDS: Atorvastatin* 20 MG TAB PO SCH (08:42)
[2017-10-05] MEDS: Insulin LISPRO* 1 UNITS UNIT SUBCUT SCH ×4 (08:42→20:37)
[2017-10-05] MEDS: Docusate CAP* 100 MG PO SCH ×2 (08:42→20:37)
[2017-10-05 09:01] LABS: ABS Basophils 0 10^3/ul (0-0.2); ABS Eosinophils 0 10^3/ul (0-0.6); ABS Lymphocytes 0.8 10^3/ul (1.0-4.8); ABS Monocytes 0.5 10^3/ul (0-0.8); ABS Nucleated RBC 0 10^3/ul; Eosinophil % 0 % (0-6); Lymphocyte % 10.3 % (25-47); Nucleated Red Blood Cells % 0.2
[2017-10-05] MEDS: Tiotropium CAP.INH* CAP.INH/18 MCG (USE ORDER SET !) INH SCH (09:48)
[2017-10-05] MEDS: Mometasone/Formoter 200/5 MDI INH SCH ×2 (09:48→20:53)
[2017-10-05] MEDS: QUEtiapine TAB* 100 MG PO SCH (20:38)
[2017-10-05] MEDS: traZODone TAB* 100 MG PO SCH (20:39)
[2017-10-05] MEDS: Cyclobenzaprine TAB* 10 MG PO PRN (20:39)
[2017-10-06] MEDS: Albuterol 2.5 MG/3 ML NEB.SOL* (0.083%) INH SCH ×4 (00:12→20:54)
[2017-10-06] MEDS: Mometasone/Formoter 200/5 MDI INH SCH ×2 (08:08→20:54)
[2017-10-06] MEDS: Tiotropium CAP.INH* CAP.INH/18 MCG (USE ORDER SET !) INH SCH (08:08)
[2017-10-06] MEDS: Insulin LISPRO* 1 UNITS UNIT SUBCUT SCH ×4 (09:22→20:52)
[2017-10-06] MEDS: Multivitamins/Minerals TAB PO SCH (09:25)
[2017-10-06] MEDS: Atorvastatin* 20 MG TAB PO SCH (09:25)
[2017-10-06] MEDS: oxyCODONE TAB* 5 MG TAB PO PRN (09:25)
[2017-10-06] MEDS: Diltiazem CD CAP* 180 MG PO SCH (09:25)
[2017-10-06] MEDS: Carvedilol TAB* 25 MG PO SCH ×2 (09:25→20:53)
[2017-10-06] MEDS: methylPREDNISolone SOD 40 MG* 1 ML VIAL IV SCH (09:27)
[2017-10-06] MEDS: Docusate CAP* 100 MG PO SCH ×2 (09:27→20:53)
[2017-10-06] MEDS: Lisinopril TAB* 10 MG PO SCH (09:27)
[2017-10-06] MEDS: cefTRIAXone(*) 1 GM in NS 0.9% 50 ML* 50 ML IVPB SCH (09:27)
[2017-10-06] MEDS: Spironolactone TAB* 25 MG PO SCH (09:27)
[2017-10-06] MEDS ORDERED: Furosemide IV* 10 MG/ML VIAL (40 MG) IV ONE (14:19)
[2017-10-06] MEDS ORDERED: Polyethylene Glycol 3350* 17 GM PACKET PO PRN (14:43)
[2017-10-06] MEDS: Furosemide IV* 10 MG/ML VIAL (40 MG) IV SLOW PU SCH (17:31)
--- NOTE | 2017-10-06 17:58 | PN ---
Subjective Date of Service: 10/05/17 Interval History: no overnight events, still feeling short of breath, does not feel that she has gotten much better since being here. still on bedrest due to falls. no cough, no wheezing, no chest pain or palpitations. Family History: Unchanged from Admission Social History: Unchanged from Admission Past Medical History: Unchanged from Admission Objective Active Medications: Acetaminophen (Tylenol Tab*) 650 mg PO Q4H PRN PRN Reason: FEVER/PAIN Last Admin: 10/04/17 20:53 Dose: 650 mg Albuterol (Ventolin 2.5 Mg/3 Ml Neb.Lois*) 2.5 mg INH Q2H PRN PRN Reason: SOB/WHEEZING Last Admin: 10/02/17 23:53 Dose: 2.5 mg Albuterol (Ventolin 2.5 Mg/3 Ml Neb.Lois*) 2.5 mg INH Q6H [facility] Last Admin: 10/06/17 13:26 Dose: 2.5 mg Alprazolam (Xanax Tab*) 0.5 mg PO TID PRN PRN Reason: ANXIETY Last Admin: 10/05/17 20:37 Dose: 0.5 mg Atorvastatin Calcium (Lipitor*) 20 mg PO DAILY [facility] Last Admin: 10/06/17 09:25 Dose: 20 mg Carvedilol (Coreg Tab*) 50 mg PO BID [facility] Last Admin: 10/06/17 09:25 Dose: 50 mg Cyclobenzaprine HCl (Flexeril Tab*) 10 mg PO TID PRN PRN Reason: PAIN Last Admin: 10/05/17 20:39 Dose: 10 mg Device (Tiotropium Inhaler Device*) 1 each .SEE ORDER .USE w/ SPIRIVA CAPS [facility] Dextrose (D50w Syringe 50 Ml*) 12.5 gm IV PUSH .FOR FS < 60 - SS PRN PRN Reason: FS < 60 Diltiazem HCl (Cardizem Cd Cap*) 180 mg PO DAILY [facility] Last Admin: 10/06/17 09:25 Dose: 180 mg Docusate Sodium (Colace Cap*) 100 mg PO BID [facility] Last Admin: 10/06/17 09:27 Dose: 100 mg Furosemide (Lasix Iv*) 40 mg IV SLOW PU 0800,1700 [facility] Last Admin: 10/06/17 17:31 Dose: Not Given Ceftriaxone Sodium 1 gm/ (Sodium Chloride) 50 mls @ 200 mls/hr IVPB Q24H [facility] Last Admin: 10/06/17 09:27 Dose: 200 mls/hr Insulin Human Lispro (Humalog*) 0 units SUBCUT ACHS LIYAH PRN Reason: Protocol Last Admin: 10/06/17 17:31 Dose: 3 units Lisinopril (Prinivil Tab*) 20 mg PO DAILY [facility] Last Admin: 10/06/17 09:27 Dose: 20 mg Methylprednisolone Sodium Succinate (Solu-Medrol 40 Mg) 40 mg IV Q12HR [facility] Last Admin: 10/06/17 09:27 Dose: 40 mg Mometasone Furoate/Formoterol Fumar (Dulera 200/5 Mdi*) 2 puff INH BID [facility] Last Admin: 10/06/17 08:08 Dose: 2 puff Multivitamins/Minerals (Theragran/Minerals Tab*) 1 tab PO DAILY [facility] Last Admin: 10/06/17 09:25 Dose: 1 tab Oxycodone HCl (Roxycodone Tab*) 5 mg PO Q6H PRN PRN Reason: PAIN Last Admin: 10/06/17 09:25 Dose: 5 mg Pharmacy Profile Note (Coumadin Daily Reminder*) 0 note FOLLOW UP 1700 [facility] Last Admin: 10/06/17 17:32 Dose: 1 note Polyethylene Glycol/Electrolytes (Miralax*) 17 gm PO DAILY PRN PRN Reason: CONSTIPATION Quetiapine Fumarate (Seroquel Tab*) 800 mg PO BEDTIME [facility] Last Admin: 10/05/17 20:38 Dose: 800 mg Spironolactone (Aldactone Tab*) 50 mg PO DAILY [facility] Last Admin: 10/06/17 09:27 Dose: 50 mg Tiotropium [place] (Spiriva Cap.Inh*) 1 cap INH DAILY [facility] Last Admin: 10/06/17 08:08 Dose: 1 cap Tramadol HCl (Ultram*) 50 mg PO Q6HR PRN PRN Reason: PAIN Last Admin: 10/05/17 16:55 Dose: 50 mg Trazodone HCl (Desyrel Tab*) 100 mg PO BEDTIME [facility] Last Admin: 10/05/17 20:39 Dose: 100 mg Vital Signs - 8 hr 04/25/18 04/25/18 04/25/18 11:12 12:12 13:28 Temperature 97.4 F Pulse Rate 101 88 Respiratory 20 18 20 Rate Blood Pressure 137/84 (mmHg) O2 Sat by Pulse 94 92 Oximetry 10/06/17 10/06/17 10/06/17 14:07 14:49 16:18 Temperature 99.1 F 98.2 F Pulse Rate 102 87 Respiratory Rate Blood Pressure 147/76 147/76 158/79 (mmHg) O2 Sat by Pulse 93 94 Oximetry 10/06/17 10/06/17 16:28 17:10 Temperature 98.6 F Pulse Rate 87 75 Respiratory Rate Blood Pressure 158/79 122/46 (mmHg) O2 Sat by Pulse 94 Oximetry Oxygen Devices in Use Now: Nasal Cannula Appearance: alert, mildly tachypneic but able to speak in full sentences Eyes: No Scleral Icterus Ears/Nose/Mouth/Throat: NL Teeth, Lips, Gums Neck: - - unable to see jugular vein . + right supraclavicular lymphadenopathy. Respiratory: Symmetrical Chest Expansion and Respiratory Effort, Clear to Auscultation Cardiovascular: NL Sounds; No Murmurs; No JVD, RRR Abdominal: NL Sounds; No Tenderness; No Distention Lymphatic: No Cervical Adenopathy Extremities: No Edema Skin: No Rash or Ulcers Neurological: Alert and Oriented x 3, - - obese Result Diagrams: 10/05/17 07:53 10/05/17 07:53 Additional Lab and Data: Lab Results 09/30/17 09/30/17 09/30/17 Range/Units 09:02 09:10 09:10 WBC (3.5-10.8) 10^3/ul RBC (4.0-5.4) 10^6/ul Hgb (12.0-16.0) g/dl Hct (35-47) % MCV (80-97) fL MCH (27-31) pg MCHC (31-36) g/dl RDW (10.5-15) % Plt Count (150-450) 10^3/ul MPV (7.4-10.4) um3 Neut % (Auto) (38-83) % Lymph % (Auto) (25-47) % [place] % (Auto) (0-7) % Eos % (Auto) (0-6) % Baso % (Auto) (0-2) % Absolute Neuts (auto) (1.5-7.7) 10^3/ul Absolute Lymphs (auto) (1.0-4.8) 10^3/ul Absolute Monos (auto) (0-0.8) 10^3/ul Absolute Eos (auto) (0-0.6) 10^3/ul Absolute Basos (auto) (0-0.2) 10^3/ul Absolute Nucleated RBC 10^3/ul Nucleated RBC % Giant Platelets Hypochromasia Target Cells Elliptocytes INR (Anticoag Therapy) (0.77-1.02) APTT (26.0-36.3) seconds D-Dimer, Quantitative (Less Than 230) ng/mL VBG pH (7.33-7.43) VBG pCO2 (41-51) mmHg VBG pO2 (35-45) mmHg VBG HCO3 (24-28) mmol/L VBG O2 Saturation (70-80) % VBG Base Excess (0-4) Sodium 138 L (139-145) mmol/L Potassium 4.2 (3.5-5.0) mmol/L Chloride 104 (101-111) mmol/L Carbon Dioxide 28 (22-32) mmol/L Anion Gap 6 (2-11) mmol/L BUN 26 H (6-24) mg/dL Creatinine 1.32 H (0.51-0.95) mg/dL Est GFR ( Amer) 52.4 (>60) Est GFR (Non-Af Amer) 40.8 (>60) BUN/Creatinine Ratio 19.7 (8-20) Glucose 111 H (70-100) mg/dL Lactic Acid (0.5-2.0) mmol/L Calcium 9.4 (8.6-10.3) mg/dL Magnesium 1.9 (1.9-2.7) mg/dL Total Bilirubin 0.30 (0.2-1.0) mg/dL AST 14 (13-39) U/L ALT 10 (7-52) U/L Alkaline Phosphatase 73 (34-104) U/L Total Creatine Kinase 38 (10-223) U/L CK-MB (CK-2) 1.1 (0.6-6.3) ng/mL Troponin I 0.01 (<0.04) ng/mL C-Reactive Protein 25.63 H (< 5.00) mg/L B-Natriuretic Peptide 51 ( - 100) pg/mL Total Protein 6.6 (6.4-8.9) g/dL Albumin 3.8 (3.2-5.2) g/dL Globulin 2.8 (2-4) g/dL Albumin/Globulin Ratio 1.4 (1-3) Lipase < 10 L (11.0-82.0) U/L Procalcitonin (<0.6) ng/mL TSH 0.72 (0.34-5.60) mcIU/mL Influenza A (Rapid) Negative (Negative) Influenza B (Rapid) Negative (Negative) 09/30/17 09/30/17 09/30/17 Range/Units 09:10 09:10 09:10 WBC 6.5 (3.5-10.8) 10^3/ul RBC 4.42 (4.0-5.4) 10^6/ul Hgb 11.6 L (12.0-16.0) g/dl Hct 37 (35-47) % MCV 84 (80-97) fL MCH 26 L (27-31) pg MCHC 31 (31-36) g/dl RDW 20 H (10.5-15) % Plt Count 140 L (150-450) 10^3/ul MPV 10.3 (7.4-10.4) um3 Neut % (Auto) 75.2 (38-83) % Lymph % (Auto) 15.9 L (25-47) % [place] % (Auto) 7.6 H (0-7) % Eos % (Auto) 0.7 (0-6) % Baso % (Auto) 0.6 (0-2) % Absolute Neuts (auto) 4.9 (1.5-7.7) 10^3/ul Absolute Lymphs (auto) 1.0 (1.0-4.8) 10^3/ul Absolute Monos (auto) 0.5 (0-0.8) 10^3/ul Absolute Eos (auto) 0 (0-0.6) 10^3/ul Absolute Basos (auto) 0 (0-0.2) 10^3/ul Absolute Nucleated RBC 0 10^3/ul Nucleated RBC % 0.3 Giant Platelets Present Hypochromasia 1+ Target Cells 1+ Elliptocytes 1+ INR (Anticoag Therapy) (0.77-1.02) APTT (26.0-36.3) seconds D-Dimer, Quantitative (Less Than 230) ng/mL VBG pH (7.33-7.43) VBG pCO2 (41-51) mmHg VBG pO2 (35-45) mmHg VBG HCO3 (24-28) mmol/L VBG O2 Saturation (70-80) % VBG Base Excess (0-4) Sodium (139-145) mmol/L Potassium (3.5-5.0) mmol/L Chloride (101-111) mmol/L Carbon Dioxide (22-32) mmol/L Anion Gap (2-11) mmol/L BUN (6-24) mg/dL Creatinine (0.51-0.95) mg/dL Est GFR ( Amer) (>60) Est GFR (Non-Af Amer) (>60) BUN/Creatinine Ratio (8-20) Glucose (70-100) mg/dL Lactic Acid 0.7 (0.5-2.0) mmol/L Calcium (8.6-10.3) mg/dL Magnesium (1.9-2.7) mg/dL Total Bilirubin (0.2-1.0) mg/dL AST (13-39) U/L ALT (7-52) U/L Alkaline Phosphatase (34-104) U/L Total Creatine Kinase (10-223) U/L CK-MB (CK-2) (0.6-6.3) ng/mL Troponin I (<0.04) ng/mL C-Reactive Protein (< 5.00) mg/L B-Natriuretic Peptide ( - 100) pg/mL Total Protein (6.4-8.9) g/dL Albumin (3.2-5.2) g/dL Globulin (2-4) g/dL Albumin/Globulin Ratio (1-3) Lipase (11.0-82.0) U/L Procalcitonin < 0.1 (<0.6) ng/mL TSH (0.34-5.60) mcIU/mL Influenza A (Rapid) (Negative) Influenza B (Rapid) (Negative) 09/30/17 09/30/17 Range/Units 09:30 09:40 WBC (3.5-10.8) 10^3/ul RBC (4.0-5.4) 10^6/ul Hgb (12.0-16.0) g/dl Hct (35-47) % MCV (80-97) fL MCH (27-31) pg MCHC (31-36) g/dl RDW (10.5-15) % Plt Count (150-450) 10^3/ul MPV (7.4-10.4) um3 Neut % (Auto) (38-83) % Lymph % (Auto) (25-47) % [place] % (Auto) (0-7) % Eos % (Auto) (0-6) % Baso % (Auto) (0-2) % Absolute Neuts (auto) (1.5-7.7) 10^3/ul Absolute Lymphs (auto) (1.0-4.8) 10^3/ul Absolute Monos (auto) (0-0.8) 10^3/ul Absolute Eos (auto) (0-0.6) 10^3/ul Absolute Basos (auto) (0-0.2) 10^3/ul Absolute Nucleated RBC 10^3/ul Nucleated RBC % Giant Platelets Hypochromasia Target Cells Elliptocytes INR (Anticoag Therapy) 3.25 H (0.77-1.02) APTT 37.9 H (26.0-36.3) seconds D-Dimer, Quantitative < 200 (Less Than 230) ng/mL VBG pH 7.27 L (7.33-7.43) VBG pCO2 72 H (41-51) mmHg VBG pO2 35 (35-45) mmHg VBG HCO3 27.4 (24-28) mmol/L VBG O2 Saturation 64.7 L (70-80) % VBG Base Excess 4.2 H (0-4) Sodium (139-145) mmol/L Potassium (3.5-5.0) mmol/L Chloride (101-111) mmol/L Carbon Dioxide (22-32) mmol/L Anion Gap (2-11) mmol/L BUN (6-24) mg/dL Creatinine (0.51-0.95) mg/dL Est GFR ( Amer) (>60) Est GFR (Non-Af Amer) (>60) BUN/Creatinine Ratio (8-20) Glucose (70-100) mg/dL Lactic Acid (0.5-2.0) mmol/L Calcium (8.6-10.3) mg/dL Magnesium (1.9-2.7) mg/dL Total Bilirubin (0.2-1.0) mg/dL AST (13-39) U/L ALT (7-52) U/L Alkaline Phosphatase (34-104) U/L Total Creatine Kinase (10-223) U/L CK-MB (CK-2) (0.6-6.3) ng/mL Troponin I (<0.04) ng/mL C-Reactive Protein (< 5.00) mg/L B-Natriuretic Peptide ( - 100) pg/mL Total Protein (6.4-8.9) g/dL Albumin (3.2-5.2) g/dL Globulin (2-4) g/dL Albumin/Globulin Ratio (1-3) Lipase (11.0-82.0) U/L Procalcitonin (<0.6) ng/mL TSH (0.34-5.60) mcIU/mL Influenza A (Rapid) (Negative) Influenza B (Rapid) (Negative) Microbiology and Other Data: Microbiology 09/30/17 20:53 Urine Culture - Final Urine 09/30/17 20:53 Legionella Urinary Antigen - Final Urine Negative Legionella Antigen Streptococcus pneumoniae Ag Screen - Final Negative S. pneumo Antigen 09/30/17 12:45 Nasal Screen MRSA (PCR)(JOAO) - Final Nasal Mrsa Not Detected Assess/Plan/Problems-Billing Assessment: Mrs. 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 - Patient Problems (1) Acute systolic CHF (congestive heart failure) Current Visit: No Status: Acute Priority: High Onset Date: 10/25/14 Code (s): I50.21 - ACUTE SYSTOLIC (CONGESTIVE) HEART FAILURE SNOMED Code(s): 831249011 Comment: I reviewed her prior admissions. Discharge weight in June was 121kg. Today she is 143 kg. She needs more aggressive diuresis. Increase today. Continue coreg, lisinopril. (2) Acute respiratory failure with hypoxemia Current Visit: Yes Status: Acute Code(s): J96.01 - ACUTE RESPIRATORY FAILURE WITH HYPOXIA SNOMED Code(s): 960620563 Comment: continues to require 5-6L O2 she is receiving treatment for copd exacerbation but I believe this is mostly decompensated heart failure wean as able (3) Mantle cell lymphoma Current Visit: Yes Status: Acute Code(s): C83.10 - MANTLE CELL LYMPHOMA, UNSPECIFIED SITE SNOMED Code(s): 463925384 Comment: Ibrutinib on hold while admitted; needs to be resumed upon discharge (4) Atrial fibrillation with RVR Current Visit: No Status: Acute Priority: High Onset Date: 10/25/14 Code (s): I48.91 - UNSPECIFIED ATRIAL FIBRILLATION SNOMED Code(s): 797728409516480 Comment: now stable on coreg and cardizem (5) COPD exacerbation Current Visit: No Status: Acute Priority: High Code(s): J44.1 - CHRONIC OBSTRUCTIVE PULMONARY DISEASE W (ACUTE) EXACERBATION SNOMED Code(s): 166461660337482 Comment: continue nebs and solumedrol--will taper solumedrol today (6) Pulmonary embolism with acute cor pulmonale Current Visit: No Status: Acute Code(s): I26.09 - OTHER PULMONARY EMBOLISM WITH ACUTE COR PULMONALE SNOMED Code(s): 00813122 Comment: continue warfarin (was eliquis failure in June) Status and Disposition: Inpatient.
--- NOTE | 2017-10-06 18:13 | PN ---
Subjective Date of Service: 10/06/17 Interval History: Doesn't feel that she is getting better, still short of breath. She has not tried to lie flat. Still on bedrest, but I liberalized that this morning so that PT can work with her. No chest pain, palpitations. Family History: Unchanged from Admission Social History: Unchanged from Admission Past Medical History: Unchanged from Admission Objective Active Medications: Acetaminophen (Tylenol Tab*) 650 mg PO Q4H PRN PRN Reason: FEVER/PAIN Last Admin: 10/04/17 20:53 Dose: 650 mg Albuterol (Ventolin 2.5 Mg/3 Ml Neb.Lois*) 2.5 mg INH Q2H PRN PRN Reason: SOB/WHEEZING Last Admin: 10/02/17 23:53 Dose: 2.5 mg Albuterol (Ventolin 2.5 Mg/3 Ml Neb.Lois*) 2.5 mg INH Q6H [facility] Last Admin: 10/06/17 13:26 Dose: 2.5 mg Alprazolam (Xanax Tab*) 0.5 mg PO TID PRN PRN Reason: ANXIETY Last Admin: 10/05/17 20:37 Dose: 0.5 mg Atorvastatin Calcium (Lipitor*) 20 mg PO DAILY [facility] Last Admin: 10/06/17 09:25 Dose: 20 mg Carvedilol (Coreg Tab*) 50 mg PO BID [facility] Last Admin: 10/06/17 09:25 Dose: 50 mg Cyclobenzaprine HCl (Flexeril Tab*) 10 mg PO TID PRN PRN Reason: PAIN Last Admin: 10/05/17 20:39 Dose: 10 mg Device (Tiotropium Inhaler Device*) 1 each .SEE ORDER .USE w/ SPIRIVA CAPS [facility] Dextrose (D50w Syringe 50 Ml*) 12.5 gm IV PUSH .FOR FS < 60 - SS PRN PRN Reason: FS < 60 Diltiazem HCl (Cardizem Cd Cap*) 180 mg PO DAILY [facility] Last Admin: 10/06/17 09:25 Dose: 180 mg Docusate Sodium (Colace Cap*) 100 mg PO BID [facility] Last Admin: 10/06/17 09:27 Dose: 100 mg Furosemide (Lasix Iv*) 40 mg IV SLOW PU 0800,1700 [facility] Last Admin: 10/06/17 17:31 Dose: Not Given Ceftriaxone Sodium 1 gm/ (Sodium Chloride) 50 mls @ 200 mls/hr IVPB Q24H [facility] Last Admin: 10/06/17 09:27 Dose: 200 mls/hr Insulin Human Lispro (Humalog*) 0 units SUBCUT ACHS LIYAH PRN Reason: Protocol Last Admin: 10/06/17 17:31 Dose: 3 units Lisinopril (Prinivil Tab*) 20 mg PO DAILY [facility] Last Admin: 10/06/17 09:27 Dose: 20 mg Methylprednisolone Sodium Succinate (Solu-Medrol 40 Mg) 40 mg IV DAILY [facility] Mometasone Furoate/Formoterol Fumar (Dulera 200/5 Mdi*) 2 puff INH BID [facility] Last Admin: 10/06/17 08:08 Dose: 2 puff Multivitamins/Minerals (Theragran/Minerals Tab*) 1 tab PO DAILY [facility] Last Admin: 10/06/17 09:25 Dose: 1 tab Oxycodone HCl (Roxycodone Tab*) 5 mg PO Q6H PRN PRN Reason: PAIN Last Admin: 10/06/17 09:25 Dose: 5 mg Pharmacy Profile Note (Coumadin Daily Reminder*) 0 note FOLLOW UP 1700 [facility] Last Admin: 10/06/17 17:32 Dose: 1 note Polyethylene Glycol/Electrolytes (Miralax*) 17 gm PO DAILY PRN PRN Reason: CONSTIPATION Quetiapine Fumarate (Seroquel Tab*) 800 mg PO BEDTIME [facility] Last Admin: 10/05/17 20:38 Dose: 800 mg Spironolactone (Aldactone Tab*) 50 mg PO DAILY [facility] Last Admin: 10/06/17 09:27 Dose: 50 mg Tiotropium [place] (Spiriva Cap.Inh*) 1 cap INH DAILY [facility] Last Admin: 10/06/17 08:08 Dose: 1 cap Tramadol HCl (Ultram*) 50 mg PO Q6HR PRN PRN Reason: PAIN Last Admin: 10/05/17 16:55 Dose: 50 mg Trazodone HCl (Desyrel Tab*) 100 mg PO BEDTIME [facility] Last Admin: 10/05/17 20:39 Dose: 100 mg Vital Signs - 8 hr 10/06/17 10/06/17 10/06/17 11:12 12:12 13:28 Temperature 97.4 F Pulse Rate 101 88 Respiratory 20 18 20 Rate Blood Pressure 137/84 (mmHg) O2 Sat by Pulse 94 92 Oximetry 10/06/17 10/06/17 10/06/17 14:07 14:49 16:18 Temperature 99.1 F 98.2 F Pulse Rate 102 87 Respiratory Rate Blood Pressure 147/76 147/76 158/79 (mmHg) O2 Sat by Pulse 93 94 Oximetry 10/06/17 10/06/17 16:28 17:10 Temperature 98.6 F Pulse Rate 87 75 Respiratory Rate Blood Pressure 158/79 122/46 (mmHg) O2 Sat by Pulse 94 Oximetry Oxygen Devices in Use Now: Nasal Cannula Appearance: alert, tachypneic, no distress Eyes: No Scleral Icterus Ears/Nose/Mouth/Throat: NL Teeth, Lips, Gums Neck: - - I can't see her JVP. right supraclavicular lymphadenoapthy Respiratory: Symmetrical Chest Expansion and Respiratory Effort Cardiovascular: No Edema Abdominal: NL Sounds; No Tenderness; No Distention, No Hepatosplenomegaly Lymphatic: No Cervical Adenopathy Extremities: No Edema Skin: No Rash or Ulcers Neurological: Alert and Oriented x 3 Result Diagrams: 10/05/17 07:53 10/05/17 07:53 Additional Lab and Data: Lab Results 09/30/17 09/30/17 09/30/17 Range/Units 09:02 09:10 09:10 WBC (3.5-10.8) 10^3/ul RBC (4.0-5.4) 10^6/ul Hgb (12.0-16.0) g/dl Hct (35-47) % MCV (80-97) fL MCH (27-31) pg MCHC (31-36) g/dl RDW (10.5-15) % Plt Count (150-450) 10^3/ul MPV (7.4-10.4) um3 Neut % (Auto) (38-83) % Lymph % (Auto) (25-47) % Chaves % (Auto) (0-7) % Eos % (Auto) (0-6) % Baso % (Auto) (0-2) % Absolute Neuts (auto) (1.5-7.7) 10^3/ul Absolute Lymphs (auto) (1.0-4.8) 10^3/ul Absolute Monos (auto) (0-0.8) 10^3/ul Absolute Eos (auto) (0-0.6) 10^3/ul Absolute Basos (auto) (0-0.2) 10^3/ul Absolute Nucleated RBC 10^3/ul Nucleated RBC % Giant Platelets Hypochromasia Target Cells Elliptocytes INR (Anticoag Therapy) (0.77-1.02) APTT (26.0-36.3) seconds D-Dimer, Quantitative (Less Than 230) ng/mL VBG pH (7.33-7.43) VBG pCO2 (41-51) mmHg VBG pO2 (35-45) mmHg VBG HCO3 (24-28) mmol/L VBG O2 Saturation (70-80) % VBG Base Excess (0-4) Sodium 138 L (139-145) mmol/L Potassium 4.2 (3.5-5.0) mmol/L Chloride 104 (101-111) mmol/L Carbon Dioxide 28 (22-32) mmol/L Anion Gap 6 (2-11) mmol/L BUN 26 H (6-24) mg/dL Creatinine 1.32 H (0.51-0.95) mg/dL Est GFR ( Amer) 52.4 (>60) Est GFR (Non-Af Amer) 40.8 (>60) BUN/Creatinine Ratio 19.7 (8-20) Glucose 111 H (70-100) mg/dL Lactic Acid (0.5-2.0) mmol/L Calcium 9.4 (8.6-10.3) mg/dL Magnesium 1.9 (1.9-2.7) mg/dL Total Bilirubin 0.30 (0.2-1.0) mg/dL AST 14 (13-39) U/L ALT 10 (7-52) U/L Alkaline Phosphatase 73 (34-104) U/L Total Creatine Kinase 38 (10-223) U/L CK-MB (CK-2) 1.1 (0.6-6.3) ng/mL Troponin I 0.01 (<0.04) ng/mL C-Reactive Protein 25.63 H (< 5.00) mg/L B-Natriuretic Peptide 51 ( - 100) pg/mL Total Protein 6.6 (6.4-8.9) g/dL Albumin 3.8 (3.2-5.2) g/dL Globulin 2.8 (2-4) g/dL Albumin/Globulin Ratio 1.4 (1-3) Lipase < 10 L (11.0-82.0) U/L Procalcitonin (<0.6) ng/mL TSH 0.72 (0.34-5.60) mcIU/mL Influenza A (Rapid) Negative (Negative) Influenza B (Rapid) Negative (Negative) 09/30/17 09/30/17 09/30/17 Range/Units 09:10 09:10 09:10 WBC 6.5 (3.5-10.8) 10^3/ul RBC 4.42 (4.0-5.4) 10^6/ul Hgb 11.6 L (12.0-16.0) g/dl Hct 37 (35-47) % MCV 84 (80-97) fL MCH 26 L (27-31) pg MCHC 31 (31-36) g/dl RDW 20 H (10.5-15) % Plt Count 140 L (150-450) 10^3/ul MPV 10.3 (7.4-10.4) um3 Neut % (Auto) 75.2 (38-83) % Lymph % (Auto) 15.9 L (25-47) % Chaves % (Auto) 7.6 H (0-7) % Eos % (Auto) 0.7 (0-6) % Baso % (Auto) 0.6 (0-2) % Absolute Neuts (auto) 4.9 (1.5-7.7) 10^3/ul Absolute Lymphs (auto) 1.0 (1.0-4.8) 10^3/ul Absolute Monos (auto) 0.5 (0-0.8) 10^3/ul Absolute Eos (auto) 0 (0-0.6) 10^3/ul Absolute Basos (auto) 0 (0-0.2) 10^3/ul Absolute Nucleated RBC 0 10^3/ul Nucleated RBC % 0.3 Giant Platelets Present Hypochromasia 1+ Target Cells 1+ Elliptocytes 1+ INR (Anticoag Therapy) (0.77-1.02) APTT (26.0-36.3) seconds D-Dimer, Quantitative (Less Than 230) ng/mL VBG pH (7.33-7.43) VBG pCO2 (41-51) mmHg VBG pO2 (35-45) mmHg VBG HCO3 (24-28) mmol/L VBG O2 Saturation (70-80) % VBG Base Excess (0-4) Sodium (139-145) mmol/L Potassium (3.5-5.0) mmol/L Chloride (101-111) mmol/L Carbon Dioxide (22-32) mmol/L Anion Gap (2-11) mmol/L BUN (6-24) mg/dL Creatinine (0.51-0.95) mg/dL Est GFR ( Amer) (>60) Est GFR (Non-Af Amer) (>60) BUN/Creatinine Ratio (8-20) Glucose (70-100) mg/dL Lactic Acid 0.7 (0.5-2.0) mmol/L Calcium (8.6-10.3) mg/dL Magnesium (1.9-2.7) mg/dL Total Bilirubin (0.2-1.0) mg/dL AST (13-39) U/L ALT (7-52) U/L Alkaline Phosphatase (34-104) U/L Total Creatine Kinase (10-223) U/L CK-MB (CK-2) (0.6-6.3) ng/mL Troponin I (<0.04) ng/mL C-Reactive Protein (< 5.00) mg/L B-Natriuretic Peptide ( - 100) pg/mL Total Protein (6.4-8.9) g/dL Albumin (3.2-5.2) g/dL Globulin (2-4) g/dL Albumin/Globulin Ratio (1-3) Lipase (11.0-82.0) U/L Procalcitonin < 0.1 (<0.6) ng/mL TSH (0.34-5.60) mcIU/mL Influenza A (Rapid) (Negative) Influenza B (Rapid) (Negative) 09/30/17 09/30/17 Range/Units 09:30 09:40 WBC (3.5-10.8) 10^3/ul RBC (4.0-5.4) 10^6/ul Hgb (12.0-16.0) g/dl Hct (35-47) % MCV (80-97) fL MCH (27-31) pg MCHC (31-36) g/dl RDW (10.5-15) % Plt Count (150-450) 10^3/ul MPV (7.4-10.4) um3 Neut % (Auto) (38-83) % Lymph % (Auto) (25-47) % Chaves % (Auto) (0-7) % Eos % (Auto) (0-6) % Baso % (Auto) (0-2) % Absolute Neuts (auto) (1.5-7.7) 10^3/ul Absolute Lymphs (auto) (1.0-4.8) 10^3/ul Absolute Monos (auto) (0-0.8) 10^3/ul Absolute Eos (auto) (0-0.6) 10^3/ul Absolute Basos (auto) (0-0.2) 10^3/ul Absolute Nucleated RBC 10^3/ul Nucleated RBC % Giant Platelets Hypochromasia Target Cells Elliptocytes INR (Anticoag Therapy) 3.25 H (0.77-1.02) APTT 37.9 H (26.0-36.3) seconds D-Dimer, Quantitative < 200 (Less Than 230) ng/mL VBG pH 7.27 L (7.33-7.43) VBG pCO2 72 H (41-51) mmHg VBG pO2 35 (35-45) mmHg VBG HCO3 27.4 (24-28) mmol/L VBG O2 Saturation 64.7 L (70-80) % VBG Base Excess 4.2 H (0-4) Sodium (139-145) mmol/L Potassium (3.5-5.0) mmol/L Chloride (101-111) mmol/L Carbon Dioxide (22-32) mmol/L Anion Gap (2-11) mmol/L BUN (6-24) mg/dL Creatinine (0.51-0.95) mg/dL Est GFR ( Amer) (>60) Est GFR (Non-Af Amer) (>60) BUN/Creatinine Ratio (8-20) Glucose (70-100) mg/dL Lactic Acid (0.5-2.0) mmol/L Calcium (8.6-10.3) mg/dL Magnesium (1.9-2.7) mg/dL Total Bilirubin (0.2-1.0) mg/dL AST (13-39) U/L ALT (7-52) U/L Alkaline Phosphatase (34-104) U/L Total Creatine Kinase (10-223) U/L CK-MB (CK-2) (0.6-6.3) ng/mL Troponin I (<0.04) ng/mL C-Reactive Protein (< 5.00) mg/L B-Natriuretic Peptide ( - 100) pg/mL Total Protein (6.4-8.9) g/dL Albumin (3.2-5.2) g/dL Globulin (2-4) g/dL Albumin/Globulin Ratio (1-3) Lipase (11.0-82.0) U/L Procalcitonin (<0.6) ng/mL TSH (0.34-5.60) mcIU/mL Influenza A (Rapid) (Negative) Influenza B (Rapid) (Negative) Microbiology and Other Data: Microbiology 09/30/17 20:53 Urine Culture - Final Urine 09/30/17 20:53 Legionella Urinary Antigen - Final Urine Negative Legionella Antigen Streptococcus pneumoniae Ag Screen - Final Negative S. pneumo Antigen 09/30/17 12:45 Nasal Screen MRSA (PCR)(JOAO) - Final Nasal Mrsa Not Detected Assess/Plan/Problems-Billing Assessment: Mrs. 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 - Patient Problems (1) Acute systolic CHF (congestive heart failure) Current Visit: No Status: Acute Priority: High Onset Date: 10/25/14 Code (s): I50.21 - ACUTE SYSTOLIC (CONGESTIVE) HEART FAILURE SNOMED Code(s): 178908418 Comment: She is still approximately 20kg above her discharge weight in June. Continue lasix 40mg bid, daily weights, in/out Continue coreg, lisinopril. (2) Acute respiratory failure with hypoxemia Current Visit: Yes Status: Acute Code(s): J96.01 - ACUTE RESPIRATORY FAILURE WITH HYPOXIA SNOMED Code(s): 327186792 Comment: continues to require 5-6L O2 she is receiving treatment for copd exacerbation but I believe this is mostly decompensated heart failure wean as able (3) Mantle cell lymphoma Current Visit: Yes Status: Acute Code(s): C83.10 - MANTLE CELL LYMPHOMA, UNSPECIFIED SITE SNOMED Code(s): 133795723 Comment: Ibrutinib on hold while admitted; needs to be resumed upon discharge (4) Atrial fibrillation with RVR Current Visit: No Status: Acute Priority: High Onset Date: 10/25/14 Code (s): I48.91 - UNSPECIFIED ATRIAL FIBRILLATION SNOMED Code(s): 945821503809894 Comment: now stable on coreg and cardizem (5) COPD exacerbation Current Visit: No Status: Acute Priority: High Code(s): J44.1 - CHRONIC OBSTRUCTIVE PULMONARY DISEASE W (ACUTE) EXACERBATION SNOMED Code(s): 953342031320074 Comment: continue nebs and solumedrol--will taper solumedrol today (6) Pulmonary embolism with acute cor pulmonale Current Visit: No Status: Acute Code(s): I26.09 - OTHER PULMONARY EMBOLISM WITH ACUTE COR PULMONALE SNOMED Code(s): 28771540 Comment: continue warfarin (was eliquis failure in June) Status and Disposition: Inpatient.
[2017-10-06] MEDS: Cyclobenzaprine TAB* 10 MG PO PRN (20:53)
[2017-10-06] MEDS: QUEtiapine TAB* 100 MG PO SCH (20:53)
[2017-10-06] MEDS: traZODone TAB* 100 MG PO SCH (20:53)
[2017-10-07] MEDS: Calcium Carbonate CHEW TAB* 500 MG (TUMS) PO PRN (00:30)
[2017-10-07] MEDS: Albuterol 2.5 MG/3 ML NEB.SOL* (0.083%) INH SCH ×4 (01:50→18:59)
[2017-10-07 06:47] LABS: Hematocrit 37 % (35-47); Mean Corpuscular HGB Conc 32 g/dl (31-36); Mean Corpuscular Hemoglobin 26 pg (27-31); Mean Corpuscular Volume 82 fL (80-97); Red Blood Count 4.54 10^6/ul (4.0-5.4); Red Cell Distribution Width 19 % (10.5-15); White Blood Count 6.6 10^3/ul (3.5-10.8)
[2017-10-07 06:50] LABS: INR 1.31 (0.77-1.02)
[2017-10-07 06:55] LABS: EGFR Non-African American 50.9 (>60)
[2017-10-07 07:28] LABS: ABS Basophils 0.1 10^3/ul (0-0.2); ABS Eosinophils 0 10^3/ul (0-0.6); ABS Lymphocytes 0.9 10^3/ul (1.0-4.8); ABS Monocytes 0.6 10^3/ul (0-0.8); ABS Neutrophils 5.1 10^3/ul (1.5-7.7); ABS Nucleated RBC 0 10^3/ul; Eosinophil % 0.2 % (0-6); Lymphocyte % 13.6 % (25-47); Mean Platelet Volume 10.6 um3 (7.4-10.4); Nucleated Red Blood Cells % 0.3; Platelet Count 128 10^3/ul (150-450)
[2017-10-07] MEDS: Mometasone/Formoter 200/5 MDI INH SCH ×2 (08:19→18:59)
[2017-10-07] MEDS: Tiotropium CAP.INH* CAP.INH/18 MCG (USE ORDER SET !) INH SCH (08:19)
[2017-10-07] MEDS: Insulin LISPRO* 1 UNITS UNIT SUBCUT SCH ×4 (09:01→21:54)
[2017-10-07] MEDS: Enoxaparin(*) 150 MG/ML 1 ML SYRINGE SUBCUT SCH ×2 (09:03→20:49)
[2017-10-07] MEDS: cefTRIAXone(*) 1 GM in NS 0.9% 50 ML* 50 ML IVPB SCH (09:05)
[2017-10-07] MEDS: Furosemide IV* 10 MG/ML VIAL (40 MG) IV SLOW PU SCH ×2 (09:09→17:04)
[2017-10-07] MEDS: Carvedilol TAB* 25 MG PO SCH ×2 (09:10→20:51)
[2017-10-07] MEDS: methylPREDNISolone SOD 40 MG* 1 ML VIAL IV SCH (09:10)
[2017-10-07] MEDS: oxyCODONE TAB* 5 MG TAB PO PRN (09:11)
[2017-10-07] MEDS: Spironolactone TAB* 25 MG PO SCH (09:11)
[2017-10-07] MEDS: Lisinopril TAB* 10 MG PO SCH (09:11)
[2017-10-07] MEDS: Docusate CAP* 100 MG PO SCH ×2 (09:11→20:51)
[2017-10-07] MEDS: Multivitamins/Minerals TAB PO SCH (09:11)
[2017-10-07] MEDS: Diltiazem CD CAP* 180 MG PO SCH (09:12)
[2017-10-07] MEDS: Atorvastatin* 20 MG TAB PO SCH (09:12)
[2017-10-07] MEDS: ALPRAZolam TAB* 0.5 MG PO PRN (14:27)
[2017-10-07] MEDS: Warfarin TAB(*) 10 MG PO SCH (17:11)
--- NOTE | 2017-10-07 18:52 | PN ---
Subjective Date of Service: 10/07/17 Interval History: Sitting up in chair, worked with PT, feels much better being out of bed. Feels breathing is getting a little better. No cough, + orthopnea, afebrile Family History: Unchanged from Admission Social History: Unchanged from Admission Past Medical History: Unchanged from Admission Objective Active Medications: Acetaminophen (Tylenol Tab*) 650 mg PO Q4H PRN PRN Reason: FEVER/PAIN Last Admin: 10/04/17 20:53 Dose: 650 mg Albuterol (Ventolin 2.5 Mg/3 Ml Neb.Lois*) 2.5 mg INH Q2H PRN PRN Reason: SOB/WHEEZING Last Admin: 10/02/17 23:53 Dose: 2.5 mg Albuterol (Ventolin 2.5 Mg/3 Ml Neb.Lois*) 2.5 mg INH Q6H [facility] Last Admin: 10/07/17 13:02 Dose: 2.5 mg Alprazolam (Xanax Tab*) 0.5 mg PO Q6H PRN PRN Reason: ANXIETY Last Admin: 10/07/17 14:27 Dose: 0.5 mg Atorvastatin Calcium (Lipitor*) 20 mg PO DAILY [facility] Last Admin: 10/07/17 09:12 Dose: 20 mg Calcium Carbonate (Tums*) 500 mg PO BID PRN PRN Reason: heartburn Last Admin: 10/07/17 00:30 Dose: 500 mg Carvedilol (Coreg Tab*) 50 mg PO BID [facility] Last Admin: 10/07/17 09:10 Dose: 50 mg Cyclobenzaprine HCl (Flexeril Tab*) 10 mg PO TID PRN PRN Reason: PAIN Last Admin: 10/06/17 20:53 Dose: 10 mg Device (Tiotropium Inhaler Device*) 1 each .SEE ORDER .USE w/ SPIRIVA CAPS [facility] Dextrose (D50w Syringe 50 Ml*) 12.5 gm IV PUSH .FOR FS < 60 - SS PRN PRN Reason: FS < 60 Diltiazem HCl (Cardizem Cd Cap*) 180 mg PO DAILY [facility] Last Admin: 10/07/17 09:12 Dose: 180 mg Docusate Sodium (Colace Cap*) 100 mg PO BID [facility] Last Admin: 10/07/17 09:11 Dose: 100 mg Enoxaparin Sodium (Lovenox(*)) 150 mg SUBCUT Q12H [facility] Last Admin: 10/07/17 09:03 Dose: 150 mg Furosemide (Lasix Iv*) 40 mg IV SLOW PU 0800,1700 [facility] Last Admin: 10/07/17 17:04 Dose: 40 mg Ceftriaxone Sodium 1 gm/ (Sodium Chloride) 50 mls @ 200 mls/hr IVPB Q24H [facility] Last Admin: 10/07/17 09:05 Dose: 200 mls/hr Insulin Human Lispro (Humalog*) 0 units SUBCUT ACHS [facility] PRN Reason: Protocol Last Admin: 10/07/17 17:46 Dose: 3 units Lisinopril (Prinivil Tab*) 20 mg PO DAILY [facility] Last Admin: 10/07/17 09:11 Dose: 20 mg Methylprednisolone Sodium Succinate (Solu-Medrol 40 Mg) 40 mg IV DAILY [facility] Last Admin: 10/07/17 09:10 Dose: 40 mg Mometasone Furoate/Formoterol Fumar (Dulera 200/5 Mdi*) 2 puff INH BID [facility] Last Admin: 10/07/17 08:19 Dose: 2 puff Multivitamins/Minerals (Theragran/Minerals Tab*) 1 tab PO DAILY [facility] Last Admin: 10/07/17 09:11 Dose: 1 tab Oxycodone HCl (Roxycodone Tab*) 5 mg PO Q6H PRN PRN Reason: PAIN Pharmacy Profile Note (Coumadin Daily Reminder*) 0 note FOLLOW UP 1700 [facility] Last Admin: 10/07/17 17:47 Dose: 1 note Polyethylene Glycol/Electrolytes (Miralax*) 17 gm PO DAILY PRN PRN Reason: CONSTIPATION Quetiapine Fumarate (Seroquel Tab*) 800 mg PO BEDTIME [facility] Last Admin: 10/06/17 20:53 Dose: 800 mg Spironolactone (Aldactone Tab*) 50 mg PO DAILY [facility] Last Admin: 10/07/17 09:11 Dose: 50 mg Tiotropium [place] (Spiriva Cap.Inh*) 1 cap INH DAILY [facility] Last Admin: 10/07/17 08:19 Dose: 1 cap Tramadol HCl (Ultram*) 50 mg PO Q6H PRN PRN Reason: PAIN Trazodone HCl (Desyrel Tab*) 100 mg PO BEDTIME [facility] Last Admin: 10/06/17 20:53 Dose: 100 mg Warfarin Sodium (Coumadin Tab(*)) 10 mg PO DAILY@1700 LIYAH PRN Reason: Protocol Last Admin: 10/07/17 17:11 Dose: 10 mg Vital Signs - 8 hr 10/07/17 10/07/17 10/07/17 11:27 11:54 13:02 Temperature 98.2 F Pulse Rate 100 88 Respiratory 18 18 Rate Blood Pressure 111/85 (mmHg) O2 Sat by Pulse 96 Oximetry 10/07/17 10/07/17 10/07/17 14:15 14:27 15:25 Temperature 97.9 F 97.6 F Pulse Rate 129 45 Respiratory 20 16 Rate Blood Pressure 103/64 133/71 (mmHg) O2 Sat by Pulse 94 98 Oximetry 10/07/17 10/07/17 10/07/17 15:50 16:23 17:08 Temperature 97.6 F Pulse Rate 102 94 Respiratory 18 Rate Blood Pressure 119/74 (mmHg) O2 Sat by Pulse 97 Oximetry Oxygen Devices in Use Now: Nasal Cannula Appearance: alert, no distress, 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 i cannot see her jugular vein Respiratory: Symmetrical Chest Expansion and Respiratory Effort, - - few exp wheezes Cardiovascular: - - irregular rhythm Skin: No Rash or Ulcers Neurological: Alert and Oriented x 3 Result Diagrams: 10/07/17 06:32 10/07/17 06:32 Additional Lab and Data: Lab Results 09/30/17 09/30/17 09/30/17 Range/Units 09:02 09:10 09:10 WBC (3.5-10.8) 10^3/ul RBC (4.0-5.4) 10^6/ul Hgb (12.0-16.0) g/dl Hct (35-47) % MCV (80-97) fL MCH (27-31) pg MCHC (31-36) g/dl RDW (10.5-15) % Plt Count (150-450) 10^3/ul MPV (7.4-10.4) um3 Neut % (Auto) (38-83) % Lymph % (Auto) (25-47) % [place] % (Auto) (0-7) % Eos % (Auto) (0-6) % Baso % (Auto) (0-2) % Absolute Neuts (auto) (1.5-7.7) 10^3/ul Absolute Lymphs (auto) (1.0-4.8) 10^3/ul Absolute Monos (auto) (0-0.8) 10^3/ul Absolute Eos (auto) (0-0.6) 10^3/ul Absolute Basos (auto) (0-0.2) 10^3/ul Absolute Nucleated RBC 10^3/ul Nucleated RBC % Giant Platelets Hypochromasia Target Cells Elliptocytes INR (Anticoag Therapy) (0.77-1.02) APTT (26.0-36.3) seconds D-Dimer, Quantitative (Less Than 230) ng/mL VBG pH (7.33-7.43) VBG pCO2 (41-51) mmHg VBG pO2 (35-45) mmHg VBG HCO3 (24-28) mmol/L VBG O2 Saturation (70-80) % VBG Base Excess (0-4) Sodium 138 L (139-145) mmol/L Potassium 4.2 (3.5-5.0) mmol/L Chloride 104 (101-111) mmol/L Carbon Dioxide 28 (22-32) mmol/L Anion Gap 6 (2-11) mmol/L BUN 26 H (6-24) mg/dL Creatinine 1.32 H (0.51-0.95) mg/dL Est GFR ( Amer) 52.4 (>60) Est GFR (Non-Af Amer) 40.8 (>60) BUN/Creatinine Ratio 19.7 (8-20) Glucose 111 H (70-100) mg/dL Lactic Acid (0.5-2.0) mmol/L Calcium 9.4 (8.6-10.3) mg/dL Magnesium 1.9 (1.9-2.7) mg/dL Total Bilirubin 0.30 (0.2-1.0) mg/dL AST 14 (13-39) U/L ALT 10 (7-52) U/L Alkaline Phosphatase 73 (34-104) U/L Total Creatine Kinase 38 (10-223) U/L CK-MB (CK-2) 1.1 (0.6-6.3) ng/mL Troponin I 0.01 (<0.04) ng/mL C-Reactive Protein 25.63 H (< 5.00) mg/L B-Natriuretic Peptide 51 ( - 100) pg/mL Total Protein 6.6 (6.4-8.9) g/dL Albumin 3.8 (3.2-5.2) g/dL Globulin 2.8 (2-4) g/dL Albumin/Globulin Ratio 1.4 (1-3) Lipase < 10 L (11.0-82.0) U/L Procalcitonin (<0.6) ng/mL TSH 0.72 (0.34-5.60) mcIU/mL Influenza A (Rapid) Negative (Negative) Influenza B (Rapid) Negative (Negative) 09/30/17 09/30/17 09/30/17 Range/Units 09:10 09:10 09:10 WBC 6.5 (3.5-10.8) 10^3/ul RBC 4.42 (4.0-5.4) 10^6/ul Hgb 11.6 L (12.0-16.0) g/dl Hct 37 (35-47) % MCV 84 (80-97) fL MCH 26 L (27-31) pg MCHC 31 (31-36) g/dl RDW 20 H (10.5-15) % Plt Count 140 L (150-450) 10^3/ul MPV 10.3 (7.4-10.4) um3 Neut % (Auto) 75.2 (38-83) % Lymph % (Auto) 15.9 L (25-47) % [place] % (Auto) 7.6 H (0-7) % Eos % (Auto) 0.7 (0-6) % Baso % (Auto) 0.6 (0-2) % Absolute Neuts (auto) 4.9 (1.5-7.7) 10^3/ul Absolute Lymphs (auto) 1.0 (1.0-4.8) 10^3/ul Absolute Monos (auto) 0.5 (0-0.8) 10^3/ul Absolute Eos (auto) 0 (0-0.6) 10^3/ul Absolute Basos (auto) 0 (0-0.2) 10^3/ul Absolute Nucleated RBC 0 10^3/ul Nucleated RBC % 0.3 Giant Platelets Present Hypochromasia 1+ Target Cells 1+ Elliptocytes 1+ INR (Anticoag Therapy) (0.77-1.02) APTT (26.0-36.3) seconds D-Dimer, Quantitative (Less Than 230) ng/mL VBG pH (7.33-7.43) VBG pCO2 (41-51) mmHg VBG pO2 (35-45) mmHg VBG HCO3 (24-28) mmol/L VBG O2 Saturation (70-80) % VBG Base Excess (0-4) Sodium (139-145) mmol/L Potassium (3.5-5.0) mmol/L Chloride (101-111) mmol/L Carbon Dioxide (22-32) mmol/L Anion Gap (2-11) mmol/L BUN (6-24) mg/dL Creatinine (0.51-0.95) mg/dL Est GFR ( Amer) (>60) Est GFR (Non-Af Amer) (>60) BUN/Creatinine Ratio (8-20) Glucose (70-100) mg/dL Lactic Acid 0.7 (0.5-2.0) mmol/L Calcium (8.6-10.3) mg/dL Magnesium (1.9-2.7) mg/dL Total Bilirubin (0.2-1.0) mg/dL AST (13-39) U/L ALT (7-52) U/L Alkaline Phosphatase (34-104) U/L Total Creatine Kinase (10-223) U/L CK-MB (CK-2) (0.6-6.3) ng/mL Troponin I (<0.04) ng/mL C-Reactive Protein (< 5.00) mg/L B-Natriuretic Peptide ( - 100) pg/mL Total Protein (6.4-8.9) g/dL Albumin (3.2-5.2) g/dL Globulin (2-4) g/dL Albumin/Globulin Ratio (1-3) Lipase (11.0-82.0) U/L Procalcitonin < 0.1 (<0.6) ng/mL TSH (0.34-5.60) mcIU/mL Influenza A (Rapid) (Negative) Influenza B (Rapid) (Negative) 09/30/17 09/30/17 Range/Units 09:30 09:40 WBC (3.5-10.8) 10^3/ul RBC (4.0-5.4) 10^6/ul Hgb (12.0-16.0) g/dl Hct (35-47) % MCV (80-97) fL MCH (27-31) pg MCHC (31-36) g/dl RDW (10.5-15) % Plt Count (150-450) 10^3/ul MPV (7.4-10.4) um3 Neut % (Auto) (38-83) % Lymph % (Auto) (25-47) % [place] % (Auto) (0-7) % Eos % (Auto) (0-6) % Baso % (Auto) (0-2) % Absolute Neuts (auto) (1.5-7.7) 10^3/ul Absolute Lymphs (auto) (1.0-4.8) 10^3/ul Absolute Monos (auto) (0-0.8) 10^3/ul Absolute Eos (auto) (0-0.6) 10^3/ul Absolute Basos (auto) (0-0.2) 10^3/ul Absolute Nucleated RBC 10^3/ul Nucleated RBC % Giant Platelets Hypochromasia Target Cells Elliptocytes INR (Anticoag Therapy) 3.25 H (0.77-1.02) APTT 37.9 H (26.0-36.3) seconds D-Dimer, Quantitative < 200 (Less Than 230) ng/mL VBG pH 7.27 L (7.33-7.43) VBG pCO2 72 H (41-51) mmHg VBG pO2 35 (35-45) mmHg VBG HCO3 27.4 (24-28) mmol/L VBG O2 Saturation 64.7 L (70-80) % VBG Base Excess 4.2 H (0-4) Sodium (139-145) mmol/L Potassium (3.5-5.0) mmol/L Chloride (101-111) mmol/L Carbon Dioxide (22-32) mmol/L Anion Gap (2-11) mmol/L BUN (6-24) mg/dL Creatinine (0.51-0.95) mg/dL Est GFR ( Amer) (>60) Est GFR (Non-Af Amer) (>60) BUN/Creatinine Ratio (8-20) Glucose (70-100) mg/dL Lactic Acid (0.5-2.0) mmol/L Calcium (8.6-10.3) mg/dL Magnesium (1.9-2.7) mg/dL Total Bilirubin (0.2-1.0) mg/dL AST (13-39) U/L ALT (7-52) U/L Alkaline Phosphatase (34-104) U/L Total Creatine Kinase (10-223) U/L CK-MB (CK-2) (0.6-6.3) ng/mL Troponin I (<0.04) ng/mL C-Reactive Protein (< 5.00) mg/L B-Natriuretic Peptide ( - 100) pg/mL Total Protein (6.4-8.9) g/dL Albumin (3.2-5.2) g/dL Globulin (2-4) g/dL Albumin/Globulin Ratio (1-3) Lipase (11.0-82.0) U/L Procalcitonin (<0.6) ng/mL TSH (0.34-5.60) mcIU/mL Influenza A (Rapid) (Negative) Influenza B (Rapid) (Negative) Microbiology and Other Data: Microbiology 09/30/17 20:53 Urine Culture - Final Urine 09/30/17 20:53 Legionella Urinary Antigen - Final Urine Negative Legionella Antigen Streptococcus pneumoniae Ag Screen - Final Negative S. pneumo Antigen 09/30/17 12:45 Nasal Screen MRSA (PCR)(JOAO) - Final Nasal Mrsa Not Detected Assess/Plan/Problems-Billing Assessment: Mrs. 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 - Patient Problems (1) Acute systolic CHF (congestive heart failure) Current Visit: No Status: Acute Priority: High Onset Date: 10/25/14 Code (s): I50.21 - ACUTE SYSTOLIC (CONGESTIVE) HEART FAILURE SNOMED Code(s): 599658002 Comment: She is still approximately 20kg above her discharge weight in June. Continue lasix 40mg bid, daily weights, in/out. I am adding metolazone for tomorrow. Continue coreg, lisinopril. (2) Acute respiratory failure with hypoxemia Current Visit: Yes Status: Acute Code(s): J96.01 - ACUTE RESPIRATORY FAILURE WITH HYPOXIA SNOMED Code(s): 456016852 Comment: continues to require 5-6L O2 she is receiving treatment for copd exacerbation but I believe this is mostly decompensated heart failure wean as able (3) Mantle cell lymphoma Current Visit: Yes Status: Acute Code(s): C83.10 - MANTLE CELL LYMPHOMA, UNSPECIFIED SITE SNOMED Code(s): 568525409 Comment: Ibrutinib on hold while admitted; needs to be resumed upon discharge (4) Atrial fibrillation with RVR Current Visit: No Status: Acute Priority: High Onset Date: 10/25/14 Code (s): I48.91 - UNSPECIFIED ATRIAL FIBRILLATION SNOMED Code(s): 137464443335971 Comment: now stable on coreg and cardizem (5) COPD exacerbation Current Visit: No Status: Acute Priority: High Code(s): J44.1 - CHRONIC OBSTRUCTIVE PULMONARY DISEASE W (ACUTE) EXACERBATION SNOMED Code(s): 107332027497615 Comment: continue nebs and solumedrol--will taper solumedrol today (6) Pulmonary embolism with acute cor pulmonale Current Visit: No Status: Acute Code(s): I26.09 - OTHER PULMONARY EMBOLISM WITH ACUTE COR PULMONALE SNOMED Code(s): 45486926 Comment: her INR fell subtherapeutic today so I started therapeutic lovenox until her INR is back above 2 continue warfarin (was eliquis failure in June) Status and Disposition: Inpatient.
[2017-10-07] MEDS: QUEtiapine TAB* 100 MG PO SCH (20:50)
[2017-10-07] MEDS: traZODone TAB* 100 MG PO SCH (20:50)
[2017-10-08] MEDS: Albuterol 2.5 MG/3 ML NEB.SOL* (0.083%) INH SCH ×4 (01:50→19:49)
[2017-10-08] MEDS: Tiotropium CAP.INH* CAP.INH/18 MCG (USE ORDER SET !) INH SCH ×2 (06:34→07:17)
[2017-10-08] MEDS: Mometasone/Formoter 200/5 MDI INH SCH ×3 (06:34→19:49)
[2017-10-08 07:01] LABS: Hematocrit 38 % (35-47); Hemoglobin 12.1 g/dl (12.0-16.0); Mean Corpuscular HGB Conc 32 g/dl (31-36); Mean Corpuscular Hemoglobin 26 pg (27-31); Mean Corpuscular Volume 80 fL (80-97); Red Blood Count 4.69 10^6/ul (4.0-5.4); Red Cell Distribution Width 19 % (10.5-15); White Blood Count 5.4 10^3/ul (3.5-10.8)
[2017-10-08 07:06] LABS: INR 1.16 (0.77-1.02)
[2017-10-08 07:35] LABS: EGFR Non-African American 49.3 (>60)
[2017-10-08 08:15] LABS: ABS Basophils 0 10^3/ul (0-0.2); ABS Eosinophils 0 10^3/ul (0-0.6); ABS Lymphocytes 0.8 10^3/ul (1.0-4.8); ABS Monocytes 0.6 10^3/ul (0-0.8); ABS Neutrophils 3.9 10^3/ul (1.5-7.7); ABS Nucleated RBC 0 10^3/ul; Eosinophil % 0.2 % (0-6); Lymphocyte % 15.5 % (25-47); Mean Platelet Volume 10.4 um3 (7.4-10.4); Nucleated Red Blood Cells % 0.2; Platelet Count 118 10^3/ul (150-450)
[2017-10-08] MEDS: Insulin LISPRO* 1 UNITS UNIT SUBCUT SCH ×4 (08:21→20:48)
[2017-10-08] MEDS: cefTRIAXone(*) 1 GM in NS 0.9% 50 ML* 50 ML IVPB SCH (09:13)
[2017-10-08] MEDS: Furosemide IV* 10 MG/ML VIAL (40 MG) IV SLOW PU SCH ×2 (09:15→18:24)
[2017-10-08] MEDS: methylPREDNISolone SOD 40 MG* 1 ML VIAL IV SCH (09:15)
[2017-10-08] MEDS: Lisinopril TAB* 10 MG PO SCH (09:17)
[2017-10-08] MEDS: Multivitamins/Minerals TAB PO SCH (09:17)
[2017-10-08] MEDS: Spironolactone TAB* 25 MG PO SCH (09:17)
[2017-10-08] MEDS: Atorvastatin* 20 MG TAB PO SCH (09:17)
[2017-10-08] MEDS: Enoxaparin(*) 150 MG/ML 1 ML SYRINGE SUBCUT SCH ×2 (09:17→20:29)
[2017-10-08] MEDS: Docusate CAP* 100 MG PO SCH ×2 (09:17→20:48)
[2017-10-08] MEDS: Carvedilol TAB* 25 MG PO SCH ×2 (09:17→20:49)
[2017-10-08] MEDS: Diltiazem CD CAP* 180 MG PO SCH (09:17)
[2017-10-08] MEDS: ALPRAZolam TAB* 0.5 MG PO PRN (09:22)
[2017-10-08] MEDS: oxyCODONE TAB* 5 MG TAB PO PRN ×2 (09:23→15:44)
--- NOTE | 2017-10-08 17:13 | PN ---
Subjective Date of Service: 10/08/17 Interval History: Worked with physical therapy and walked for the first time since admission. She felt okay when she did that. Her breathing is much improved. No cough, no fevers, no chest pain. Family History: Unchanged from Admission Social History: Unchanged from Admission Past Medical History: Unchanged from Admission Objective Active Medications: Acetaminophen (Tylenol Tab*) 650 mg PO Q4H PRN PRN Reason: FEVER/PAIN Last Admin: 10/04/17 20:53 Dose: 650 mg Albuterol (Ventolin 2.5 Mg/3 Ml Neb.Lois*) 2.5 mg INH Q2H PRN PRN Reason: SOB/WHEEZING Last Admin: 10/02/17 23:53 Dose: 2.5 mg Albuterol (Ventolin 2.5 Mg/3 Ml Neb.Lois*) 2.5 mg INH Q6H LIYAH Last Admin: 10/08/17 13:07 Dose: 2.5 mg Alprazolam (Xanax Tab*) 0.5 mg PO Q6H PRN PRN Reason: ANXIETY Last Admin: 10/08/17 09:22 Dose: 0.5 mg Atorvastatin Calcium (Lipitor*) 20 mg PO DAILY [facility] Last Admin: 10/08/17 09:17 Dose: 20 mg Calcium Carbonate (Tums*) 500 mg PO BID PRN PRN Reason: heartburn Last Admin: 10/07/17 00:30 Dose: 500 mg Carvedilol (Coreg Tab*) 50 mg PO BID [facility] Last Admin: 10/08/17 09:17 Dose: 50 mg Cyclobenzaprine HCl (Flexeril Tab*) 10 mg PO TID PRN PRN Reason: PAIN Last Admin: 10/06/17 20:53 Dose: 10 mg Device (Tiotropium Inhaler Device*) 1 each .SEE ORDER .USE w/ SPIRIVA CAPS [facility] Dextrose (D50w Syringe 50 Ml*) 12.5 gm IV PUSH .FOR FS < 60 - SS PRN PRN Reason: FS < 60 Diltiazem HCl (Cardizem Cd Cap*) 180 mg PO DAILY [facility] Last Admin: 10/08/17 09:17 Dose: 180 mg Docusate Sodium (Colace Cap*) 100 mg PO BID [facility] Last Admin: 10/08/17 09:17 Dose: 100 mg Enoxaparin Sodium (Lovenox(*)) 150 mg SUBCUT Q12H [facility] Last Admin: 10/08/17 09:17 Dose: 150 mg Furosemide (Lasix Iv*) 40 mg IV SLOW PU 0800,1700 [facility] Last Admin: 10/08/17 09:15 Dose: 40 mg Ceftriaxone Sodium 1 gm/ (Sodium Chloride) 50 mls @ 200 mls/hr IVPB Q24H [facility] Last Admin: 10/08/17 09:13 Dose: 200 mls/hr Insulin Human Lispro (Humalog*) 0 units SUBCUT ACHS [facility] PRN Reason: Protocol Last Admin: 10/08/17 12:53 Dose: 3 units Lisinopril (Prinivil Tab*) 20 mg PO DAILY [facility] Last Admin: 10/08/17 09:17 Dose: 20 mg Methylprednisolone Sodium Succinate (Solu-Medrol 40 Mg) 40 mg IV DAILY [facility] Last Admin: 10/08/17 09:15 Dose: 40 mg Mometasone Furoate/Formoterol Fumar (Dulera 200/5 Mdi*) 2 puff INH BID [facility] Last Admin: 10/08/17 07:16 Dose: Not Given Multivitamins/Minerals (Theragran/Minerals Tab*) 1 tab PO DAILY [facility] Last Admin: 10/08/17 09:17 Dose: 1 tab Oxycodone HCl (Roxycodone Tab*) 5 mg PO Q6H PRN PRN Reason: PAIN Last Admin: 10/08/17 15:44 Dose: 5 mg Pharmacy Profile Note (Coumadin Daily Reminder*) 0 note FOLLOW UP 1700 [facility] Last Admin: 10/07/17 17:47 Dose: 1 note Polyethylene Glycol/Electrolytes (Miralax*) 17 gm PO DAILY PRN PRN Reason: CONSTIPATION Quetiapine Fumarate (Seroquel Tab*) 800 mg PO BEDTIME [facility] Last Admin: 10/07/17 20:50 Dose: 800 mg Spironolactone (Aldactone Tab*) 50 mg PO DAILY [facility] Last Admin: 10/08/17 09:17 Dose: 50 mg Tiotropium [place] (Spiriva Cap.Inh*) 1 cap INH DAILY [facility] Last Admin: 10/08/17 07:17 Dose: Not Given Tramadol HCl (Ultram*) 50 mg PO Q6H PRN PRN Reason: PAIN Trazodone HCl (Desyrel Tab*) 100 mg PO BEDTIME [facility] Last Admin: 10/07/17 20:50 Dose: 100 mg Warfarin Sodium (Coumadin Tab(*)) 10 mg PO DAILY@1700 [facility] PRN Reason: Protocol Last Admin: 10/07/17 17:11 Dose: 10 mg Vital Signs - 8 hr 10/08/17 10/08/17 10/08/17 09:22 09:23 11:20 Temperature 97.4 F Pulse Rate Respiratory 16 16 20 Rate Blood Pressure 111/64 (mmHg) O2 Sat by Pulse 97 Oximetry 10/08/17 10/08/17 10/08/17 12:49 15:34 15:44 Temperature 97.8 F Pulse Rate 84 Respiratory 16 20 20 Rate Blood Pressure 100/51 (mmHg) O2 Sat by Pulse 97 Oximetry Oxygen Devices in Use Now: Nasal Cannula Appearance: alert, sitting up in chair, breathing is less labored than days prior Eyes: No Scleral Icterus Ears/Nose/Mouth/Throat: NL Teeth, Lips, Gums Neck: - - cannot see JVP. + right supraclavicular adenopathy. Respiratory: Symmetrical Chest Expansion and Respiratory Effort, Clear to Auscultation Cardiovascular: - - irregular rhythm Abdominal: NL Sounds; No Tenderness; No Distention Lymphatic: No Cervical Adenopathy Skin: No Rash or Ulcers Neurological: Alert and Oriented x 3 Result Diagrams: 10/08/17 06:45 10/08/17 06:45 Additional Lab and Data: Lab Results 09/30/17 09/30/17 09/30/17 Range/Units 09:02 09:10 09:10 WBC (3.5-10.8) 10^3/ul RBC (4.0-5.4) 10^6/ul Hgb (12.0-16.0) g/dl Hct (35-47) % MCV (80-97) fL MCH (27-31) pg MCHC (31-36) g/dl RDW (10.5-15) % Plt Count (150-450) 10^3/ul MPV (7.4-10.4) um3 Neut % (Auto) (38-83) % Lymph % (Auto) (25-47) % Robertson % (Auto) (0-7) % Eos % (Auto) (0-6) % Baso % (Auto) (0-2) % Absolute Neuts (auto) (1.5-7.7) 10^3/ul Absolute Lymphs (auto) (1.0-4.8) 10^3/ul Absolute Monos (auto) (0-0.8) 10^3/ul Absolute Eos (auto) (0-0.6) 10^3/ul Absolute Basos (auto) (0-0.2) 10^3/ul Absolute Nucleated RBC 10^3/ul Nucleated RBC % Giant Platelets Hypochromasia Target Cells Elliptocytes INR (Anticoag Therapy) (0.77-1.02) APTT (26.0-36.3) seconds D-Dimer, Quantitative (Less Than 230) ng/mL VBG pH (7.33-7.43) VBG pCO2 (41-51) mmHg VBG pO2 (35-45) mmHg VBG HCO3 (24-28) mmol/L VBG O2 Saturation (70-80) % VBG Base Excess (0-4) Sodium 138 L (139-145) mmol/L Potassium 4.2 (3.5-5.0) mmol/L Chloride 104 (101-111) mmol/L Carbon Dioxide 28 (22-32) mmol/L Anion Gap 6 (2-11) mmol/L BUN 26 H (6-24) mg/dL Creatinine 1.32 H (0.51-0.95) mg/dL Est GFR ( Amer) 52.4 (>60) Est GFR (Non-Af Amer) 40.8 (>60) BUN/Creatinine Ratio 19.7 (8-20) Glucose 111 H (70-100) mg/dL Lactic Acid (0.5-2.0) mmol/L Calcium 9.4 (8.6-10.3) mg/dL Magnesium 1.9 (1.9-2.7) mg/dL Total Bilirubin 0.30 (0.2-1.0) mg/dL AST 14 (13-39) U/L ALT 10 (7-52) U/L Alkaline Phosphatase 73 (34-104) U/L Total Creatine Kinase 38 (10-223) U/L CK-MB (CK-2) 1.1 (0.6-6.3) ng/mL Troponin I 0.01 (<0.04) ng/mL C-Reactive Protein 25.63 H (< 5.00) mg/L B-Natriuretic Peptide 51 ( - 100) pg/mL Total Protein 6.6 (6.4-8.9) g/dL Albumin 3.8 (3.2-5.2) g/dL Globulin 2.8 (2-4) g/dL Albumin/Globulin Ratio 1.4 (1-3) Lipase < 10 L (11.0-82.0) U/L Procalcitonin (<0.6) ng/mL TSH 0.72 (0.34-5.60) mcIU/mL Influenza A (Rapid) Negative (Negative) Influenza B (Rapid) Negative (Negative) 09/30/17 09/30/17 09/30/17 Range/Units 09:10 09:10 09:10 WBC 6.5 (3.5-10.8) 10^3/ul RBC 4.42 (4.0-5.4) 10^6/ul Hgb 11.6 L (12.0-16.0) g/dl Hct 37 (35-47) % MCV 84 (80-97) fL MCH 26 L (27-31) pg MCHC 31 (31-36) g/dl RDW 20 H (10.5-15) % Plt Count 140 L (150-450) 10^3/ul MPV 10.3 (7.4-10.4) um3 Neut % (Auto) 75.2 (38-83) % Lymph % (Auto) 15.9 L (25-47) % Robertson % (Auto) 7.6 H (0-7) % Eos % (Auto) 0.7 (0-6) % Baso % (Auto) 0.6 (0-2) % Absolute Neuts (auto) 4.9 (1.5-7.7) 10^3/ul Absolute Lymphs (auto) 1.0 (1.0-4.8) 10^3/ul Absolute Monos (auto) 0.5 (0-0.8) 10^3/ul Absolute Eos (auto) 0 (0-0.6) 10^3/ul Absolute Basos (auto) 0 (0-0.2) 10^3/ul Absolute Nucleated RBC 0 10^3/ul Nucleated RBC % 0.3 Giant Platelets Present Hypochromasia 1+ Target Cells 1+ Elliptocytes 1+ INR (Anticoag Therapy) (0.77-1.02) APTT (26.0-36.3) seconds D-Dimer, Quantitative (Less Than 230) ng/mL VBG pH (7.33-7.43) VBG pCO2 (41-51) mmHg VBG pO2 (35-45) mmHg VBG HCO3 (24-28) mmol/L VBG O2 Saturation (70-80) % VBG Base Excess (0-4) Sodium (139-145) mmol/L Potassium (3.5-5.0) mmol/L Chloride (101-111) mmol/L Carbon Dioxide (22-32) mmol/L Anion Gap (2-11) mmol/L BUN (6-24) mg/dL Creatinine (0.51-0.95) mg/dL Est GFR ( Amer) (>60) Est GFR (Non-Af Amer) (>60) BUN/Creatinine Ratio (8-20) Glucose (70-100) mg/dL Lactic Acid 0.7 (0.5-2.0) mmol/L Calcium (8.6-10.3) mg/dL Magnesium (1.9-2.7) mg/dL Total Bilirubin (0.2-1.0) mg/dL AST (13-39) U/L ALT (7-52) U/L Alkaline Phosphatase (34-104) U/L Total Creatine Kinase (10-223) U/L CK-MB (CK-2) (0.6-6.3) ng/mL Troponin I (<0.04) ng/mL C-Reactive Protein (< 5.00) mg/L B-Natriuretic Peptide ( - 100) pg/mL Total Protein (6.4-8.9) g/dL Albumin (3.2-5.2) g/dL Globulin (2-4) g/dL Albumin/Globulin Ratio (1-3) Lipase (11.0-82.0) U/L Procalcitonin < 0.1 (<0.6) ng/mL TSH (0.34-5.60) mcIU/mL Influenza A (Rapid) (Negative) Influenza B (Rapid) (Negative) 09/30/17 09/30/17 Range/Units 09:30 09:40 WBC (3.5-10.8) 10^3/ul RBC (4.0-5.4) 10^6/ul Hgb (12.0-16.0) g/dl Hct (35-47) % MCV (80-97) fL MCH (27-31) pg MCHC (31-36) g/dl RDW (10.5-15) % Plt Count (150-450) 10^3/ul MPV (7.4-10.4) um3 Neut % (Auto) (38-83) % Lymph % (Auto) (25-47) % Robertson % (Auto) (0-7) % Eos % (Auto) (0-6) % Baso % (Auto) (0-2) % Absolute Neuts (auto) (1.5-7.7) 10^3/ul Absolute Lymphs (auto) (1.0-4.8) 10^3/ul Absolute Monos (auto) (0-0.8) 10^3/ul Absolute Eos (auto) (0-0.6) 10^3/ul Absolute Basos (auto) (0-0.2) 10^3/ul Absolute Nucleated RBC 10^3/ul Nucleated RBC % Giant Platelets Hypochromasia Target Cells Elliptocytes INR (Anticoag Therapy) 3.25 H (0.77-1.02) APTT 37.9 H (26.0-36.3) seconds D-Dimer, Quantitative < 200 (Less Than 230) ng/mL VBG pH 7.27 L (7.33-7.43) VBG pCO2 72 H (41-51) mmHg VBG pO2 35 (35-45) mmHg VBG HCO3 27.4 (24-28) mmol/L VBG O2 Saturation 64.7 L (70-80) % VBG Base Excess 4.2 H (0-4) Sodium (139-145) mmol/L Potassium (3.5-5.0) mmol/L Chloride (101-111) mmol/L Carbon Dioxide (22-32) mmol/L Anion Gap (2-11) mmol/L BUN (6-24) mg/dL Creatinine (0.51-0.95) mg/dL Est GFR ( Amer) (>60) Est GFR (Non-Af Amer) (>60) BUN/Creatinine Ratio (8-20) Glucose (70-100) mg/dL Lactic Acid (0.5-2.0) mmol/L Calcium (8.6-10.3) mg/dL Magnesium (1.9-2.7) mg/dL Total Bilirubin (0.2-1.0) mg/dL AST (13-39) U/L ALT (7-52) U/L Alkaline Phosphatase (34-104) U/L Total Creatine Kinase (10-223) U/L CK-MB (CK-2) (0.6-6.3) ng/mL Troponin I (<0.04) ng/mL C-Reactive Protein (< 5.00) mg/L B-Natriuretic Peptide ( - 100) pg/mL Total Protein (6.4-8.9) g/dL Albumin (3.2-5.2) g/dL Globulin (2-4) g/dL Albumin/Globulin Ratio (1-3) Lipase (11.0-82.0) U/L Procalcitonin (<0.6) ng/mL TSH (0.34-5.60) mcIU/mL Influenza A (Rapid) (Negative) Influenza B (Rapid) (Negative) Microbiology and Other Data: Microbiology 09/30/17 20:53 Urine Culture - Final Urine 09/30/17 20:53 Legionella Urinary Antigen - Final Urine Negative Legionella Antigen Streptococcus pneumoniae Ag Screen - Final Negative S. pneumo Antigen 09/30/17 12:45 Nasal Screen MRSA (PCR)(JOAO) - Final Nasal Mrsa Not Detected Assess/Plan/Problems-Billing Assessment: Mrs. 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 - Patient Problems (1) Acute systolic CHF (congestive heart failure) Current Visit: No Status: Acute Priority: High Onset Date: 10/25/14 Code (s): I50.21 - ACUTE SYSTOLIC (CONGESTIVE) HEART FAILURE SNOMED Code(s): 848771687 Comment: She is still approximately 20kg above her discharge weight in June, but is improving every day--her work of breathing is much better, and she has gotten out of bed and walked for hte first time today. Continue lasix 40mg bid, daily weights, in/out. Continue once daily metolazone. Continue coreg, lisinopril. (2) Acute respiratory failure with hypoxemia Current Visit: Yes Status: Acute Code(s): J96.01 - ACUTE RESPIRATORY FAILURE WITH HYPOXIA SNOMED Code(s): 904556578 Comment: continues to require 5-6L O2 she is receiving treatment for copd exacerbation but I believe this is mostly decompensated heart failure decrease solumedrol wean as able (3) Mantle cell lymphoma Current Visit: Yes Status: Acute Code(s): C83.10 - MANTLE CELL LYMPHOMA, UNSPECIFIED SITE SNOMED Code(s): 348123329 Comment: Ibrutinib on hold while admitted; needs to be resumed upon discharge (4) Atrial fibrillation with RVR Current Visit: No Status: Acute Priority: High Onset Date: 10/25/14 Code (s): I48.91 - UNSPECIFIED ATRIAL FIBRILLATION SNOMED Code(s): 463850959817884 Comment: now stable on coreg and cardizem INR fell subtherapeutic so I started therapeutic lovenox with warfarin (5) COPD exacerbation Current Visit: No Status: Acute Priority: High Code(s): J44.1 - CHRONIC OBSTRUCTIVE PULMONARY DISEASE W (ACUTE) EXACERBATION SNOMED Code(s): 542254481812668 Comment: tapering solumedrol (6) Pulmonary embolism with acute cor pulmonale Current Visit: No Status: Acute Code(s): I26.09 - OTHER PULMONARY EMBOLISM WITH ACUTE COR PULMONALE SNOMED Code(s): 85504260 Comment: lovenox bridge as above. continue warfarin (was eliquis failure in June) Status and Disposition: Inpatient.
[2017-10-08] MEDS: Warfarin TAB(*) 10 MG PO SCH (18:25)
[2017-10-08] MEDS: traMADol TAB* 50 MG PO PRN (20:29)
[2017-10-08] MEDS: traZODone TAB* 100 MG PO SCH (20:48)
[2017-10-08] MEDS: QUEtiapine TAB* 100 MG PO SCH (20:49)
[2017-10-09] MEDS: oxyCODONE TAB* 5 MG TAB PO PRN ×4 (02:44→23:13)
[2017-10-09] MEDS: Albuterol 2.5 MG/3 ML NEB.SOL* (0.083%) INH SCH ×4 (02:54→19:59)
[2017-10-09] MEDS: Calcium Carbonate CHEW TAB* 500 MG (TUMS) PO PRN (03:47)
[2017-10-09] MEDS: traMADol TAB* 50 MG PO PRN (06:42)
[2017-10-09] MEDS: Tiotropium CAP.INH* CAP.INH/18 MCG (USE ORDER SET !) INH SCH (07:15)
[2017-10-09] MEDS: Mometasone/Formoter 200/5 MDI INH SCH ×2 (07:16→20:00)
[2017-10-09 07:21] LABS: Hematocrit 37 % (35-47); Hemoglobin 11.7 g/dl (12.0-16.0); Mean Corpuscular HGB Conc 32 g/dl (31-36); Mean Corpuscular Hemoglobin 26 pg (27-31); Mean Corpuscular Volume 81 fL (80-97); Mean Platelet Volume 10.3 um3 (7.4-10.4); Platelet Count 114 10^3/ul (150-450); Red Blood Count 4.51 10^6/ul (4.0-5.4); Red Cell Distribution Width 18 % (10.5-15); White Blood Count 5.7 10^3/ul (3.5-10.8)
[2017-10-09 07:24] LABS: EGFR Non-African American 42.6 (>60)
[2017-10-09 07:43] LABS: ABS Basophils 0 10^3/ul (0-0.2); ABS Eosinophils 0 10^3/ul (0-0.6); ABS Lymphocytes 1.4 10^3/ul (1.0-4.8); ABS Monocytes 0.5 10^3/ul (0-0.8); ABS Neutrophils 3.8 10^3/ul (1.5-7.7); ABS Nucleated RBC 0 10^3/ul; Eosinophil % 0.3 % (0-6); Lymphocyte % 23.9 % (25-47); Nucleated Red Blood Cells % 0.1
[2017-10-09] MEDS: Insulin LISPRO* 1 UNITS UNIT SUBCUT SCH ×4 (07:52→21:53)
[2017-10-09] MEDS: cefTRIAXone(*) 1 GM in NS 0.9% 50 ML* 50 ML IVPB SCH (08:49)
[2017-10-09] MEDS: methylPREDNISolone SOD 40 MG* 1 ML VIAL IV SCH (08:49)
[2017-10-09] MEDS: Enoxaparin(*) 150 MG/ML 1 ML SYRINGE SUBCUT SCH ×2 (08:49→21:51)
[2017-10-09] MEDS: Furosemide IV* 10 MG/ML VIAL (40 MG) IV SLOW PU SCH ×2 (08:49→18:12)
[2017-10-09] MEDS: Multivitamins/Minerals TAB PO SCH (08:51)
[2017-10-09] MEDS: Docusate CAP* 100 MG PO SCH ×2 (08:51→21:50)
[2017-10-09] MEDS: Atorvastatin* 20 MG TAB PO SCH (08:51)
[2017-10-09] MEDS: Carvedilol TAB* 25 MG PO SCH ×2 (08:51→21:51)
[2017-10-09] MEDS: Lisinopril TAB* 10 MG PO SCH (08:51)
[2017-10-09] MEDS: ALPRAZolam TAB* 0.5 MG PO PRN ×2 (08:52→16:55)
[2017-10-09] MEDS: Diltiazem CD CAP* 180 MG PO SCH (08:52)
[2017-10-09] MEDS: Spironolactone TAB* 25 MG PO SCH (08:52)
[2017-10-09] MEDS: Cyclobenzaprine TAB* 10 MG PO PRN ×2 (08:52→16:56)
[2017-10-09] MEDS: Warfarin TAB(*) 10 MG PO SCH (18:11)
--- NOTE | 2017-10-09 19:19 | PN ---
Subjective Date of Service: 10/09/17 Interval History: Pt seen and examined. Meds and labs reviewed. ROS: Complained of 9/10 lower back pain. Denied STRELING/dizziness, F/C, N/V, CP, SOB, increased cough, sputum production, abd pain, diarrhea, constipation, dysuria, throat pain, and new skin lesions. The rest of the 14 point ROS are unremarkable. PHYSICAL EXAM: GEN APPEARANCE: Awake, not in acute distress HEENT: NC/AT, PERRLA, moist oral mucosa, (-) throat erythema NECK: Soft, supple, (-) cervical LAD, (-)JVD HEART: S1S2 WNL, RRR, No MRG CHEST: CTA, BL, GAE, No W/R/R ABD: Soft, ND/NT, NABS 4x Q EXT: No C/C/BLLE +1 SKIN: Warm to touch PSYCH: No active psychosis, hallucinations, depression, SI/HI Family History: Unchanged from Admission Social History: Unchanged from Admission Past Medical History: Unchanged from Admission Objective Active Medications: Acetaminophen (Tylenol Tab*) 650 mg PO Q4H PRN PRN Reason: FEVER/PAIN Last Admin: 10/04/17 20:53 Dose: 650 mg Albuterol (Ventolin 2.5 Mg/3 Ml Neb.Lois*) 2.5 mg INH Q2H PRN PRN Reason: SOB/WHEEZING Last Admin: 10/02/17 23:53 Dose: 2.5 mg Albuterol (Ventolin 2.5 Mg/3 Ml Neb.Lois*) 2.5 mg INH Q6H LIYAH Last Admin: 10/09/17 12:27 Dose: 2.5 mg Alprazolam (Xanax Tab*) 0.5 mg PO Q6H PRN PRN Reason: ANXIETY Last Admin: 10/09/17 16:55 Dose: 0.5 mg Atorvastatin Calcium (Lipitor*) 20 mg PO DAILY LIYAH Last Admin: 10/09/17 08:51 Dose: 20 mg Calcium Carbonate (Tums*) 500 mg PO BID PRN PRN Reason: heartburn Last Admin: 10/09/17 03:47 Dose: 500 mg Carvedilol (Coreg Tab*) 50 mg PO BID LIYAH Last Admin: 10/09/17 08:51 Dose: 50 mg Cyclobenzaprine HCl (Flexeril Tab*) 10 mg PO TID PRN PRN Reason: PAIN Last Admin: 10/09/17 16:56 Dose: 10 mg Device (Tiotropium Inhaler Device*) 1 each .SEE ORDER .USE w/ SPIRIVA CAPS [facility] Dextrose (D50w Syringe 50 Ml*) 12.5 gm IV PUSH .FOR FS < 60 - SS PRN PRN Reason: FS < 60 Diltiazem HCl (Cardizem Cd Cap*) 180 mg PO DAILY [facility] Last Admin: 10/09/17 08:52 Dose: 180 mg Docusate Sodium (Colace Cap*) 100 mg PO BID [facility] Last Admin: 10/09/17 08:51 Dose: 100 mg Enoxaparin Sodium (Lovenox(*)) 150 mg SUBCUT Q12H [facility] Last Admin: 10/09/17 08:49 Dose: 150 mg Furosemide (Lasix Iv*) 40 mg IV SLOW PU 0800,1700 [facility] Last Admin: 10/09/17 18:12 Dose: 40 mg Ceftriaxone Sodium 1 gm/ (Sodium Chloride) 50 mls @ 200 mls/hr IVPB Q24H [facility] Last Admin: 10/09/17 08:49 Dose: 200 mls/hr Insulin Human Lispro (Humalog*) 0 units SUBCUT ACHS [facility] PRN Reason: Protocol Last Admin: 10/09/17 16:59 Dose: Not Given Lisinopril (Prinivil Tab*) 20 mg PO DAILY [facility] Last Admin: 10/09/17 08:51 Dose: 20 mg Methylprednisolone Sodium Succinate (Solu-Medrol 40 Mg) 40 mg IV DAILY [facility] Last Admin: 10/09/17 08:49 Dose: 40 mg Mometasone Furoate/Formoterol Fumar (Dulera 200/5 Mdi*) 2 puff INH BID [facility] Last Admin: 10/09/17 07:16 Dose: 2 puff Multivitamins/Minerals (Theragran/Minerals Tab*) 1 tab PO DAILY [facility] Last Admin: 10/09/17 08:51 Dose: 1 tab Oxycodone HCl (Roxycodone Tab*) 5 mg PO Q6H PRN PRN Reason: PAIN Last Admin: 10/09/17 16:55 Dose: 5 mg Pharmacy Profile Note (Coumadin Daily Reminder*) 0 note FOLLOW UP 1700 [facility] Last Admin: 10/09/17 18:11 Dose: 1 note Polyethylene Glycol/Electrolytes (Miralax*) 17 gm PO DAILY PRN PRN Reason: CONSTIPATION Quetiapine Fumarate (Seroquel Tab*) 800 mg PO BEDTIME [facility] Last Admin: 10/08/17 20:49 Dose: 800 mg Spironolactone (Aldactone Tab*) 50 mg PO DAILY [facility] Last Admin: 10/09/17 08:52 Dose: 50 mg Tiotropium [place] (Spiriva Cap.Inh*) 1 cap INH DAILY LIYAH Last Admin: 10/09/17 07:15 Dose: 1 cap Tramadol HCl (Ultram*) 50 mg PO Q6H PRN PRN Reason: PAIN Last Admin: 10/09/17 06:42 Dose: 50 mg Trazodone HCl (Desyrel Tab*) 100 mg PO BEDTIME [facility] Last Admin: 10/08/17 20:48 Dose: 100 mg Warfarin Sodium (Coumadin Tab(*)) 10 mg PO DAILY@1700 LIYAH PRN Reason: Protocol Last Admin: 10/09/17 18:11 Dose: 10 mg Vital Signs - 8 hr 10/09/17 10/09/17 10/09/17 11:56 12:28 15:55 Temperature 96.8 F 97.4 F Pulse Rate 96 76 91 Respiratory 16 17 18 Rate Blood Pressure 109/65 110/78 (mmHg) O2 Sat by Pulse 96 97 92 Oximetry 10/09/17 10/09/17 16:55 16:56 Temperature Pulse Rate Respiratory 20 20 Rate Blood Pressure (mmHg) O2 Sat by Pulse Oximetry Oxygen Devices in Use Now: Nasal Cannula Result Diagrams: 10/09/17 07:00 10/09/17 07:00 Additional Lab and Data: Lab Results 09/30/17 09/30/17 09/30/17 Range/Units 09:02 09:10 09:10 WBC (3.5-10.8) 10^3/ul RBC (4.0-5.4) 10^6/ul Hgb (12.0-16.0) g/dl Hct (35-47) % MCV (80-97) fL MCH (27-31) pg MCHC (31-36) g/dl RDW (10.5-15) % Plt Count (150-450) 10^3/ul MPV (7.4-10.4) um3 Neut % (Auto) (38-83) % Lymph % (Auto) (25-47) % [place] % (Auto) (0-7) % Eos % (Auto) (0-6) % Baso % (Auto) (0-2) % Absolute Neuts (auto) (1.5-7.7) 10^3/ul Absolute Lymphs (auto) (1.0-4.8) 10^3/ul Absolute Monos (auto) (0-0.8) 10^3/ul Absolute Eos (auto) (0-0.6) 10^3/ul Absolute Basos (auto) (0-0.2) 10^3/ul Absolute Nucleated RBC 10^3/ul Nucleated RBC % Giant Platelets Hypochromasia Target Cells Elliptocytes INR (Anticoag Therapy) (0.77-1.02) APTT (26.0-36.3) seconds D-Dimer, Quantitative (Less Than 230) ng/mL VBG pH (7.33-7.43) VBG pCO2 (41-51) mmHg VBG pO2 (35-45) mmHg VBG HCO3 (24-28) mmol/L VBG O2 Saturation (70-80) % VBG Base Excess (0-4) Sodium 138 L (139-145) mmol/L Potassium 4.2 (3.5-5.0) mmol/L Chloride 104 (101-111) mmol/L Carbon Dioxide 28 (22-32) mmol/L Anion Gap 6 (2-11) mmol/L BUN 26 H (6-24) mg/dL Creatinine 1.32 H (0.51-0.95) mg/dL Est GFR ( Amer) 52.4 (>60) Est GFR (Non-Af Amer) 40.8 (>60) BUN/Creatinine Ratio 19.7 (8-20) Glucose 111 H (70-100) mg/dL Lactic Acid (0.5-2.0) mmol/L Calcium 9.4 (8.6-10.3) mg/dL Magnesium 1.9 (1.9-2.7) mg/dL Total Bilirubin 0.30 (0.2-1.0) mg/dL AST 14 (13-39) U/L ALT 10 (7-52) U/L Alkaline Phosphatase 73 (34-104) U/L Total Creatine Kinase 38 (10-223) U/L CK-MB (CK-2) 1.1 (0.6-6.3) ng/mL Troponin I 0.01 (<0.04) ng/mL C-Reactive Protein 25.63 H (< 5.00) mg/L B-Natriuretic Peptide 51 ( - 100) pg/mL Total Protein 6.6 (6.4-8.9) g/dL Albumin 3.8 (3.2-5.2) g/dL Globulin 2.8 (2-4) g/dL Albumin/Globulin Ratio 1.4 (1-3) Lipase < 10 L (11.0-82.0) U/L Procalcitonin (<0.6) ng/mL TSH 0.72 (0.34-5.60) mcIU/mL Influenza A (Rapid) Negative (Negative) Influenza B (Rapid) Negative (Negative) 09/30/17 09/30/17 09/30/17 Range/Units 09:10 09:10 09:10 WBC 6.5 (3.5-10.8) 10^3/ul RBC 4.42 (4.0-5.4) 10^6/ul Hgb 11.6 L (12.0-16.0) g/dl Hct 37 (35-47) % MCV 84 (80-97) fL MCH 26 L (27-31) pg MCHC 31 (31-36) g/dl RDW 20 H (10.5-15) % Plt Count 140 L (150-450) 10^3/ul MPV 10.3 (7.4-10.4) um3 Neut % (Auto) 75.2 (38-83) % Lymph % (Auto) 15.9 L (25-47) % [place] % (Auto) 7.6 H (0-7) % Eos % (Auto) 0.7 (0-6) % Baso % (Auto) 0.6 (0-2) % Absolute Neuts (auto) 4.9 (1.5-7.7) 10^3/ul Absolute Lymphs (auto) 1.0 (1.0-4.8) 10^3/ul Absolute Monos (auto) 0.5 (0-0.8) 10^3/ul Absolute Eos (auto) 0 (0-0.6) 10^3/ul Absolute Basos (auto) 0 (0-0.2) 10^3/ul Absolute Nucleated RBC 0 10^3/ul Nucleated RBC % 0.3 Giant Platelets Present Hypochromasia 1+ Target Cells 1+ Elliptocytes 1+ INR (Anticoag Therapy) (0.77-1.02) APTT (26.0-36.3) seconds D-Dimer, Quantitative (Less Than 230) ng/mL VBG pH (7.33-7.43) VBG pCO2 (41-51) mmHg VBG pO2 (35-45) mmHg VBG HCO3 (24-28) mmol/L VBG O2 Saturation (70-80) % VBG Base Excess (0-4) Sodium (139-145) mmol/L Potassium (3.5-5.0) mmol/L Chloride (101-111) mmol/L Carbon Dioxide (22-32) mmol/L Anion Gap (2-11) mmol/L BUN (6-24) mg/dL Creatinine (0.51-0.95) mg/dL Est GFR ( Amer) (>60) Est GFR (Non-Af Amer) (>60) BUN/Creatinine Ratio (8-20) Glucose (70-100) mg/dL Lactic Acid 0.7 (0.5-2.0) mmol/L Calcium (8.6-10.3) mg/dL Magnesium (1.9-2.7) mg/dL Total Bilirubin (0.2-1.0) mg/dL AST (13-39) U/L ALT (7-52) U/L Alkaline Phosphatase (34-104) U/L Total Creatine Kinase (10-223) U/L CK-MB (CK-2) (0.6-6.3) ng/mL Troponin I (<0.04) ng/mL C-Reactive Protein (< 5.00) mg/L B-Natriuretic Peptide ( - 100) pg/mL Total Protein (6.4-8.9) g/dL Albumin (3.2-5.2) g/dL Globulin (2-4) g/dL Albumin/Globulin Ratio (1-3) Lipase (11.0-82.0) U/L Procalcitonin < 0.1 (<0.6) ng/mL TSH (0.34-5.60) mcIU/mL Influenza A (Rapid) (Negative) Influenza B (Rapid) (Negative) 09/30/17 09/30/17 Range/Units 09:30 09:40 WBC (3.5-10.8) 10^3/ul RBC (4.0-5.4) 10^6/ul Hgb (12.0-16.0) g/dl Hct (35-47) % MCV (80-97) fL MCH (27-31) pg MCHC (31-36) g/dl RDW (10.5-15) % Plt Count (150-450) 10^3/ul MPV (7.4-10.4) um3 Neut % (Auto) (38-83) % Lymph % (Auto) (25-47) % [place] % (Auto) (0-7) % Eos % (Auto) (0-6) % Baso % (Auto) (0-2) % Absolute Neuts (auto) (1.5-7.7) 10^3/ul Absolute Lymphs (auto) (1.0-4.8) 10^3/ul Absolute Monos (auto) (0-0.8) 10^3/ul Absolute Eos (auto) (0-0.6) 10^3/ul Absolute Basos (auto) (0-0.2) 10^3/ul Absolute Nucleated RBC 10^3/ul Nucleated RBC % Giant Platelets Hypochromasia Target Cells Elliptocytes INR (Anticoag Therapy) 3.25 H (0.77-1.02) APTT 37.9 H (26.0-36.3) seconds D-Dimer, Quantitative < 200 (Less Than 230) ng/mL VBG pH 7.27 L (7.33-7.43) VBG pCO2 72 H (41-51) mmHg VBG pO2 35 (35-45) mmHg VBG HCO3 27.4 (24-28) mmol/L VBG O2 Saturation 64.7 L (70-80) % VBG Base Excess 4.2 H (0-4) Sodium (139-145) mmol/L Potassium (3.5-5.0) mmol/L Chloride (101-111) mmol/L Carbon Dioxide (22-32) mmol/L Anion Gap (2-11) mmol/L BUN (6-24) mg/dL Creatinine (0.51-0.95) mg/dL Est GFR ( Amer) (>60) Est GFR (Non-Af Amer) (>60) BUN/Creatinine Ratio (8-20) Glucose (70-100) mg/dL Lactic Acid (0.5-2.0) mmol/L Calcium (8.6-10.3) mg/dL Magnesium (1.9-2.7) mg/dL Total Bilirubin (0.2-1.0) mg/dL AST (13-39) U/L ALT (7-52) U/L Alkaline Phosphatase (34-104) U/L Total Creatine Kinase (10-223) U/L CK-MB (CK-2) (0.6-6.3) ng/mL Troponin I (<0.04) ng/mL C-Reactive Protein (< 5.00) mg/L B-Natriuretic Peptide ( - 100) pg/mL Total Protein (6.4-8.9) g/dL Albumin (3.2-5.2) g/dL Globulin (2-4) g/dL Albumin/Globulin Ratio (1-3) Lipase (11.0-82.0) U/L Procalcitonin (<0.6) ng/mL TSH (0.34-5.60) mcIU/mL Influenza A (Rapid) (Negative) Influenza B (Rapid) (Negative) Microbiology and Other Data: Microbiology 09/30/17 20:53 Urine Culture - Final Urine 09/30/17 20:53 Legionella Urinary Antigen - Final Urine Negative Legionella Antigen Streptococcus pneumoniae Ag Screen - Final Negative S. pneumo Antigen 09/30/17 12:45 Nasal Screen MRSA (PCR)(JOAO) - Final Nasal Mrsa Not Detected Assess/Plan/Problems-Billing Assessment: Mrs. 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 - Patient Problems (1) Acute exacerbation of CHF (congestive heart failure) Current Visit: Yes Status: Acute Code(s): I50.9 - HEART FAILURE, UNSPECIFIED SNOMED Code(s): 96493799 Comment: - Repeat echo is unchanged. - Contraction alkalosis and increasing BUN, will decrease lasix to PO 20 mg --Check BNP in AM --Continue to monitor I/O's (2) Afib Current Visit: Yes Status: Acute Code(s): I48.91 - UNSPECIFIED ATRIAL FIBRILLATION SNOMED Code(s): 81017819 Comment: - Seen by Dr. Goodwin 09/27/17 - her Afib rate was not well controlled during the visit and he felt this could be in part related to Ibrutinib. He added Cardizem 180mg/day but patient was unable to pick it up. He was planning to see her 1 week after her visit as he was concerned she did not tolerate Afib RVR in the past with worsening CHF. He had stopped amiodarone given its toxicity and felt Tykosin or Sotalol would be difficult due her Seroquel use. His plan was for BERTO/CV if she remained in rapid Afib with beta regina and diltiazem. - Rate is controlled now, off Cardizem drip - continue Coreg and Cardizem PO - Continue Warfarin. (3) COPD exacerbation Current Visit: Yes Status: Acute Code(s): J44.1 - CHRONIC OBSTRUCTIVE PULMONARY DISEASE W (ACUTE) EXACERBATION SNOMED Code(s): 265574818 Comment: - Secondary to viral bronchitis, presumed Influenza. - Continue bronchodilators, steroids, Tamiflu, Ceftriaxone, and Zithromax. (4) Mantle cell lymphoma Current Visit: Yes Status: Acute Code(s): C83.10 - MANTLE CELL LYMPHOMA, UNSPECIFIED SITE SNOMED Code(s): 690944979 Comment: Ibrutinib on hold while admitted; needs to be resumed upon discharge (5) Back pain Current Visit: Yes Status: Acute Code(s): M54.9 - DORSALGIA, UNSPECIFIED SNOMED Code(s): 420289318 Comment: --Continue current regimen --Will add Gabapentin to regimen for synergy Status and Disposition: Inpatient.
[2017-10-09] MEDS: QUEtiapine TAB* 100 MG PO SCH (21:50)
[2017-10-09] MEDS: traZODone TAB* 100 MG PO SCH (21:51)
[2017-10-09] MEDS: Gabapentin CAP(*) 100 MG PO SCH (21:51)
[2017-10-10] MEDS: Albuterol 2.5 MG/3 ML NEB.SOL* (0.083%) INH SCH ×2 (03:26→07:13)
[2017-10-10 06:49] LABS: INR 1.48 (0.77-1.02)
[2017-10-10] MEDS: Tiotropium CAP.INH* CAP.INH/18 MCG (USE ORDER SET !) INH SCH (07:13)
[2017-10-10] MEDS: Mometasone/Formoter 200/5 MDI INH SCH ×2 (07:14→21:01)
[2017-10-10] MEDS ORDERED: Albuterol 2.5 MG/3 ML NEB.SOL* (0.083%) INH PRN (07:21)
[2017-10-10] MEDS: Insulin LISPRO* 1 UNITS UNIT SUBCUT SCH ×4 (08:01→21:11)
[2017-10-10] MEDS: cefTRIAXone(*) 1 GM in NS 0.9% 50 ML* 50 ML IVPB SCH (08:19)
[2017-10-10] MEDS: ALPRAZolam TAB* 0.5 MG PO PRN ×2 (08:19→17:55)
[2017-10-10] MEDS: Atorvastatin* 20 MG TAB PO SCH (08:19)
[2017-10-10] MEDS: Docusate CAP* 100 MG PO SCH ×2 (08:19→21:10)
[2017-10-10] MEDS: Multivitamins/Minerals TAB PO SCH (08:19)
[2017-10-10] MEDS: Gabapentin CAP(*) 100 MG PO SCH ×3 (08:20→21:08)
[2017-10-10] MEDS: Carvedilol TAB* 25 MG PO SCH ×2 (08:20→21:10)
[2017-10-10] MEDS: Enoxaparin(*) 150 MG/ML 1 ML SYRINGE SUBCUT SCH ×2 (08:20→21:11)
[2017-10-10] MEDS: methylPREDNISolone SOD 40 MG* 1 ML VIAL IV SCH (08:20)
[2017-10-10] MEDS: Diltiazem CD CAP* 180 MG PO SCH (08:20)
[2017-10-10] MEDS: Spironolactone TAB* 25 MG PO SCH (08:20)
[2017-10-10] MEDS: Lisinopril TAB* 10 MG PO SCH (08:20)
[2017-10-10] MEDS: Calcium Carbonate CHEW TAB* 500 MG (TUMS) PO PRN (08:20)
[2017-10-10 08:46] LABS: Hematocrit 38 % (35-47); Mean Corpuscular HGB Conc 32 g/dl (31-36); Mean Corpuscular Hemoglobin 26 pg (27-31); Mean Corpuscular Volume 82 fL (80-97); Red Blood Count 4.65 10^6/ul (4.0-5.4); Red Cell Distribution Width 18 % (10.5-15); White Blood Count 5.4 10^3/ul (3.5-10.8)
[2017-10-10 08:58] LABS: EGFR Non-African American 46.4 (>60)
[2017-10-10] MEDS ORDERED: Furosemide TAB* 20 MG PO SCH (09:00)
[2017-10-10 09:07] LABS: ABS Basophils 0 10^3/ul (0-0.2); ABS Eosinophils 0.1 10^3/ul (0-0.6); ABS Lymphocytes 0.6 10^3/ul (1.0-4.8); ABS Monocytes 0.5 10^3/ul (0-0.8); ABS Neutrophils 4.2 10^3/ul (1.5-7.7); ABS Nucleated RBC 0 10^3/ul; Eosinophil % 1.2 % (0-6); Lymphocyte % 11.9 % (25-47); Mean Platelet Volume 10.9 um3 (7.4-10.4); Nucleated Red Blood Cells % 0.1; Platelet Count 117 10^3/ul (150-450)
[2017-10-10] MEDS: Warfarin TAB(*) 10 MG PO SCH (17:11)
--- NOTE | 2017-10-10 17:24 | PN ---
Subjective Date of Service: 10/10/17 Interval History: Pt seen and examined. Meds and labs reviewed. Pt mentions that she feels uncomfortable to be D/Cd today given she has 25 steps in her home. Given today is wednesday, I agree that pt will need to be-reevaluated tomorrow by PT to see if her home environment will be considered a safe D/C or if she has any other needs prior to planned D/C given her concerns. ROS: Denied STERLING/dizziness, F/C, N/V, CP, SOB, increased cough, sputum production , abd pain, diarrhea, constipation, dysuria, myalgias, arthralgias, throat pain , and new skin lesions. The rest of the 14 point ROS are unremarkable. PHYSICAL EXAM: GEN APPEARANCE: Awake, not in acute distress, obese HEENT: NC/AT, PERRLA, moist oral mucosa, (-) throat erythema NECK: Soft, supple, (-) cervical LAD, (-)JVD HEART: S1S2 WNL, RRR, No MRG CHEST: CTA, BL, GAE, No W/R/R ABD: Soft, ND/NT, NABS 4x Q EXT: No C/C/E SKIN: Warm to touch PSYCH: No active psychosis, hallucinations, depression, SI/HI Family History: Unchanged from Admission Social History: Unchanged from Admission Past Medical History: Unchanged from Admission Objective Active Medications: Acetaminophen (Tylenol Tab*) 650 mg PO Q4H PRN PRN Reason: FEVER/PAIN Last Admin: 10/04/17 20:53 Dose: 650 mg Albuterol (Ventolin 2.5 Mg/3 Ml Neb.Lois*) 2.5 mg INH Q2H PRN PRN Reason: SOB/WHEEZING Last Admin: 10/02/17 23:53 Dose: 2.5 mg Albuterol (Ventolin 2.5 Mg/3 Ml Neb.Lois*) 2.5 mg INH Q4H PRN PRN Reason: SHORTNESS OF BREATH Alprazolam (Xanax Tab*) 0.5 mg PO Q6H PRN PRN Reason: ANXIETY Last Admin: 10/10/17 08:19 Dose: 0.5 mg Atorvastatin Calcium (Lipitor*) 20 mg PO DAILY [facility] Last Admin: 10/10/17 08:19 Dose: 20 mg Calcium Carbonate (Tums*) 500 mg PO BID PRN PRN Reason: heartburn Last Admin: 10/10/17 08:20 Dose: 500 mg Carvedilol (Coreg Tab*) 50 mg PO BID [facility] Last Admin: 10/10/17 08:20 Dose: 50 mg Cyclobenzaprine HCl (Flexeril Tab*) 10 mg PO TID PRN PRN Reason: PAIN Last Admin: 10/09/17 16:56 Dose: 10 mg Device (Tiotropium Inhaler Device*) 1 each .SEE ORDER .USE w/ SPIRIVA CAPS [facility] Dextrose (D50w Syringe 50 Ml*) 12.5 gm IV PUSH .FOR FS < 60 - SS PRN PRN Reason: FS < 60 Diltiazem HCl (Cardizem Cd Cap*) 180 mg PO DAILY [facility] Last Admin: 10/10/17 08:20 Dose: 180 mg Docusate Sodium (Colace Cap*) 100 mg PO BID [facility] Last Admin: 10/10/17 08:19 Dose: 100 mg Enoxaparin Sodium (Lovenox(*)) 150 mg SUBCUT Q12H [facility] Last Admin: 10/10/17 08:20 Dose: 150 mg Gabapentin (Neurontin Cap(*)) 200 mg PO TID [facility] Last Admin: 10/10/17 12:21 Dose: 200 mg Ceftriaxone Sodium 1 gm/ (Sodium Chloride) 50 mls @ 200 mls/hr IVPB Q24H [facility] Last Admin: 10/10/17 08:19 Dose: 200 mls/hr Insulin Human Lispro (Humalog*) 0 units SUBCUT ACHS [facility] PRN Reason: Protocol Last Admin: 10/10/17 17:11 Dose: 9 units Lisinopril (Prinivil Tab*) 20 mg PO DAILY [facility] Last Admin: 10/10/17 08:20 Dose: 20 mg Methylprednisolone Sodium Succinate (Solu-Medrol 40 Mg) 40 mg IV DAILY [facility] Last Admin: 10/10/17 08:20 Dose: 40 mg Mometasone Furoate/Formoterol Fumar (Dulera 200/5 Mdi*) 2 puff INH BID [facility] Last Admin: 10/10/17 07:14 Dose: 2 puff Multivitamins/Minerals (Theragran/Minerals Tab*) 1 tab PO DAILY [facility] Last Admin: 10/10/17 08:19 Dose: 1 tab Oxycodone HCl (Roxycodone Tab*) 5 mg PO Q6H PRN PRN Reason: PAIN Last Admin: 10/09/17 23:13 Dose: 5 mg Pharmacy Profile Note (Coumadin Daily Reminder*) 0 note FOLLOW UP 1700 [facility] Last Admin: 10/10/17 17:13 Dose: 1 note Polyethylene Glycol/Electrolytes (Miralax*) 17 gm PO DAILY PRN PRN Reason: CONSTIPATION Quetiapine Fumarate (Seroquel Tab*) 800 mg PO BEDTIME [facility] Last Admin: 10/09/17 21:50 Dose: 800 mg Spironolactone (Aldactone Tab*) 50 mg PO DAILY [facility] Last Admin: 10/10/17 08:20 Dose: 50 mg Tiotropium Morse (Spiriva Cap.Inh*) 1 cap INH DAILY [facility] Last Admin: 10/10/17 07:13 Dose: 1 cap Tramadol HCl (Ultram*) 50 mg PO Q6H PRN PRN Reason: PAIN Last Admin: 10/09/17 06:42 Dose: 50 mg Trazodone HCl (Desyrel Tab*) 100 mg PO BEDTIME [facility] Last Admin: 10/09/17 21:51 Dose: 100 mg Warfarin Sodium (Coumadin Tab(*)) 10 mg PO DAILY@1700 [facility] PRN Reason: Protocol Last Admin: 10/10/17 17:11 Dose: 10 mg Vital Signs - 8 hr 10/10/17 10/10/17 10/10/17 10:58 11:44 12:21 Temperature 97.9 F Pulse Rate Respiratory 18 16 18 Rate Blood Pressure 108/71 (mmHg) O2 Sat by Pulse 98 Oximetry 10/10/17 10/10/17 14:22 15:20 Temperature 98.3 F Pulse Rate 103 Respiratory 18 20 Rate Blood Pressure 110/67 (mmHg) O2 Sat by Pulse 96 Oximetry Oxygen Devices in Use Now: Nasal Cannula Result Diagrams: 10/10/17 08:27 10/10/17 08:27 Additional Lab and Data: Lab Results 09/30/17 09/30/17 09/30/17 Range/Units 09:02 09:10 09:10 WBC (3.5-10.8) 10^3/ul RBC (4.0-5.4) 10^6/ul Hgb (12.0-16.0) g/dl Hct (35-47) % MCV (80-97) fL MCH (27-31) pg MCHC (31-36) g/dl RDW (10.5-15) % Plt Count (150-450) 10^3/ul MPV (7.4-10.4) um3 Neut % (Auto) (38-83) % Lymph % (Auto) (25-47) % Mcintosh % (Auto) (0-7) % Eos % (Auto) (0-6) % Baso % (Auto) (0-2) % Absolute Neuts (auto) (1.5-7.7) 10^3/ul Absolute Lymphs (auto) (1.0-4.8) 10^3/ul Absolute Monos (auto) (0-0.8) 10^3/ul Absolute Eos (auto) (0-0.6) 10^3/ul Absolute Basos (auto) (0-0.2) 10^3/ul Absolute Nucleated RBC 10^3/ul Nucleated RBC % Giant Platelets Hypochromasia Target Cells Elliptocytes INR (Anticoag Therapy) (0.77-1.02) APTT (26.0-36.3) seconds D-Dimer, Quantitative (Less Than 230) ng/mL VBG pH (7.33-7.43) VBG pCO2 (41-51) mmHg VBG pO2 (35-45) mmHg VBG HCO3 (24-28) mmol/L VBG O2 Saturation (70-80) % VBG Base Excess (0-4) Sodium 138 L (139-145) mmol/L Potassium 4.2 (3.5-5.0) mmol/L Chloride 104 (101-111) mmol/L Carbon Dioxide 28 (22-32) mmol/L Anion Gap 6 (2-11) mmol/L BUN 26 H (6-24) mg/dL Creatinine 1.32 H (0.51-0.95) mg/dL Est GFR ( Amer) 52.4 (>60) Est GFR (Non-Af Amer) 40.8 (>60) BUN/Creatinine Ratio 19.7 (8-20) Glucose 111 H (70-100) mg/dL Lactic Acid (0.5-2.0) mmol/L Calcium 9.4 (8.6-10.3) mg/dL Magnesium 1.9 (1.9-2.7) mg/dL Total Bilirubin 0.30 (0.2-1.0) mg/dL AST 14 (13-39) U/L ALT 10 (7-52) U/L Alkaline Phosphatase 73 (34-104) U/L Total Creatine Kinase 38 (10-223) U/L CK-MB (CK-2) 1.1 (0.6-6.3) ng/mL Troponin I 0.01 (<0.04) ng/mL C-Reactive Protein 25.63 H (< 5.00) mg/L B-Natriuretic Peptide 51 ( - 100) pg/mL Total Protein 6.6 (6.4-8.9) g/dL Albumin 3.8 (3.2-5.2) g/dL Globulin 2.8 (2-4) g/dL Albumin/Globulin Ratio 1.4 (1-3) Lipase < 10 L (11.0-82.0) U/L Procalcitonin (<0.6) ng/mL TSH 0.72 (0.34-5.60) mcIU/mL Influenza A (Rapid) Negative (Negative) Influenza B (Rapid) Negative (Negative) 09/30/17 09/30/17 09/30/17 Range/Units 09:10 09:10 09:10 WBC 6.5 (3.5-10.8) 10^3/ul RBC 4.42 (4.0-5.4) 10^6/ul Hgb 11.6 L (12.0-16.0) g/dl Hct 37 (35-47) % MCV 84 (80-97) fL MCH 26 L (27-31) pg MCHC 31 (31-36) g/dl RDW 20 H (10.5-15) % Plt Count 140 L (150-450) 10^3/ul MPV 10.3 (7.4-10.4) um3 Neut % (Auto) 75.2 (38-83) % Lymph % (Auto) 15.9 L (25-47) % Mcintosh % (Auto) 7.6 H (0-7) % Eos % (Auto) 0.7 (0-6) % Baso % (Auto) 0.6 (0-2) % Absolute Neuts (auto) 4.9 (1.5-7.7) 10^3/ul Absolute Lymphs (auto) 1.0 (1.0-4.8) 10^3/ul Absolute Monos (auto) 0.5 (0-0.8) 10^3/ul Absolute Eos (auto) 0 (0-0.6) 10^3/ul Absolute Basos (auto) 0 (0-0.2) 10^3/ul Absolute Nucleated RBC 0 10^3/ul Nucleated RBC % 0.3 Giant Platelets Present Hypochromasia 1+ Target Cells 1+ Elliptocytes 1+ INR (Anticoag Therapy) (0.77-1.02) APTT (26.0-36.3) seconds D-Dimer, Quantitative (Less Than 230) ng/mL VBG pH (7.33-7.43) VBG pCO2 (41-51) mmHg VBG pO2 (35-45) mmHg VBG HCO3 (24-28) mmol/L VBG O2 Saturation (70-80) % VBG Base Excess (0-4) Sodium (139-145) mmol/L Potassium (3.5-5.0) mmol/L Chloride (101-111) mmol/L Carbon Dioxide (22-32) mmol/L Anion Gap (2-11) mmol/L BUN (6-24) mg/dL Creatinine (0.51-0.95) mg/dL Est GFR ( Amer) (>60) Est GFR (Non-Af Amer) (>60) BUN/Creatinine Ratio (8-20) Glucose (70-100) mg/dL Lactic Acid 0.7 (0.5-2.0) mmol/L Calcium (8.6-10.3) mg/dL Magnesium (1.9-2.7) mg/dL Total Bilirubin (0.2-1.0) mg/dL AST (13-39) U/L ALT (7-52) U/L Alkaline Phosphatase (34-104) U/L Total Creatine Kinase (10-223) U/L CK-MB (CK-2) (0.6-6.3) ng/mL Troponin I (<0.04) ng/mL C-Reactive Protein (< 5.00) mg/L B-Natriuretic Peptide ( - 100) pg/mL Total Protein (6.4-8.9) g/dL Albumin (3.2-5.2) g/dL Globulin (2-4) g/dL Albumin/Globulin Ratio (1-3) Lipase (11.0-82.0) U/L Procalcitonin < 0.1 (<0.6) ng/mL TSH (0.34-5.60) mcIU/mL Influenza A (Rapid) (Negative) Influenza B (Rapid) (Negative) 09/30/17 09/30/17 Range/Units 09:30 09:40 WBC (3.5-10.8) 10^3/ul RBC (4.0-5.4) 10^6/ul Hgb (12.0-16.0) g/dl Hct (35-47) % MCV (80-97) fL MCH (27-31) pg MCHC (31-36) g/dl RDW (10.5-15) % Plt Count (150-450) 10^3/ul MPV (7.4-10.4) um3 Neut % (Auto) (38-83) % Lymph % (Auto) (25-47) % Mcintosh % (Auto) (0-7) % Eos % (Auto) (0-6) % Baso % (Auto) (0-2) % Absolute Neuts (auto) (1.5-7.7) 10^3/ul Absolute Lymphs (auto) (1.0-4.8) 10^3/ul Absolute Monos (auto) (0-0.8) 10^3/ul Absolute Eos (auto) (0-0.6) 10^3/ul Absolute Basos (auto) (0-0.2) 10^3/ul Absolute Nucleated RBC 10^3/ul Nucleated RBC % Giant Platelets Hypochromasia Target Cells Elliptocytes INR (Anticoag Therapy) 3.25 H (0.77-1.02) APTT 37.9 H (26.0-36.3) seconds D-Dimer, Quantitative < 200 (Less Than 230) ng/mL VBG pH 7.27 L (7.33-7.43) VBG pCO2 72 H (41-51) mmHg VBG pO2 35 (35-45) mmHg VBG HCO3 27.4 (24-28) mmol/L VBG O2 Saturation 64.7 L (70-80) % VBG Base Excess 4.2 H (0-4) Sodium (139-145) mmol/L Potassium (3.5-5.0) mmol/L Chloride (101-111) mmol/L Carbon Dioxide (22-32) mmol/L Anion Gap (2-11) mmol/L BUN (6-24) mg/dL Creatinine (0.51-0.95) mg/dL Est GFR ( Amer) (>60) Est GFR (Non-Af Amer) (>60) BUN/Creatinine Ratio (8-20) Glucose (70-100) mg/dL Lactic Acid (0.5-2.0) mmol/L Calcium (8.6-10.3) mg/dL Magnesium (1.9-2.7) mg/dL Total Bilirubin (0.2-1.0) mg/dL AST (13-39) U/L ALT (7-52) U/L Alkaline Phosphatase (34-104) U/L Total Creatine Kinase (10-223) U/L CK-MB (CK-2) (0.6-6.3) ng/mL Troponin I (<0.04) ng/mL C-Reactive Protein (< 5.00) mg/L B-Natriuretic Peptide ( - 100) pg/mL Total Protein (6.4-8.9) g/dL Albumin (3.2-5.2) g/dL Globulin (2-4) g/dL Albumin/Globulin Ratio (1-3) Lipase (11.0-82.0) U/L Procalcitonin (<0.6) ng/mL TSH (0.34-5.60) mcIU/mL Influenza A (Rapid) (Negative) Influenza B (Rapid) (Negative) Microbiology and Other Data: Microbiology 09/30/17 20:53 Urine Culture - Final Urine 09/30/17 20:53 Legionella Urinary Antigen - Final Urine Negative Legionella Antigen Streptococcus pneumoniae Ag Screen - Final Negative S. pneumo Antigen 09/30/17 12:45 Nasal Screen MRSA (PCR)(JOAO) - Final Nasal Mrsa Not Detected Assess/Plan/Problems-Billing Assessment: Mrs. 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 - Patient Problems (1) Acute exacerbation of CHF (congestive heart failure) Current Visit: Yes Status: Acute Code(s): I50.9 - HEART FAILURE, UNSPECIFIED SNOMED Code(s): 58355797 Comment: - Repeat echo is unchanged. - Contraction alkalosis and increasing BUN, will further decrease lasix to PO 10 mg --Check BNP in AM --Continue to monitor I/O's (2) Afib Current Visit: Yes Status: Acute Code(s): I48.91 - UNSPECIFIED ATRIAL FIBRILLATION SNOMED Code(s): 01246828 Comment: - Seen by Dr. Goodwin 09/27/17 - her Afib rate was not well controlled during the visit and he felt this could be in part related to Ibrutinib. He added Cardizem 180mg/day but patient was unable to pick it up. He was planning to see her 1 week after her visit as he was concerned she did not tolerate Afib RVR in the past with worsening CHF. He had stopped amiodarone given its toxicity and felt Tykosin or Sotalol would be difficult due her Seroquel use. His plan was for BERTO/CV if she remained in rapid Afib with beta regina and diltiazem. - Rate is controlled now, off Cardizem drip - continue Coreg and Cardizem PO - Continue Warfarin. (3) COPD exacerbation Current Visit: Yes Status: Acute Code(s): J44.1 - CHRONIC OBSTRUCTIVE PULMONARY DISEASE W (ACUTE) EXACERBATION SNOMED Code(s): 792431276 Comment: - Secondary to viral bronchitis, presumed Influenza. - Continue bronchodilators, steroids, Tamiflu, Ceftriaxone, and Zithromax. (4) Mantle cell lymphoma Current Visit: Yes Status: Acute Code(s): C83.10 - MANTLE CELL LYMPHOMA, UNSPECIFIED SITE SNOMED Code(s): 424600780 Comment: Ibrutinib on hold while admitted; needs to be resumed upon discharge (5) Back pain Current Visit: Yes Status: Acute Code(s): M54.9 - DORSALGIA, UNSPECIFIED SNOMED Code(s): 695772837 Comment: --Continue current regimen --Will add Gabapentin to regimen for synergy Status and Disposition: ---Possible D/C in AM --Will Await any further PT reccs
[2017-10-10] MEDS: oxyCODONE TAB* 5 MG TAB PO PRN (17:55)
[2017-10-10] MEDS: traZODone TAB* 100 MG PO SCH (21:08)
[2017-10-10] MEDS: QUEtiapine TAB* 100 MG PO SCH (21:10)
[2017-10-10] MEDS: Cyclobenzaprine TAB* 10 MG PO PRN (21:10)
[2017-10-10] MEDS: traMADol TAB* 50 MG PO PRN (21:10)
[2017-10-11] MEDS: Insulin LISPRO* 1 UNITS UNIT SUBCUT SCH ×4 (07:34→21:26)
[2017-10-11] MEDS: Tiotropium CAP.INH* CAP.INH/18 MCG (USE ORDER SET !) INH SCH (07:59)
[2017-10-11] MEDS: Mometasone/Formoter 200/5 MDI INH SCH ×2 (07:59→19:59)
[2017-10-11] MEDS: Enoxaparin(*) 150 MG/ML 1 ML SYRINGE SUBCUT SCH ×2 (09:02→20:37)
[2017-10-11] MEDS: methylPREDNISolone SOD 40 MG* 1 ML VIAL IV SCH (09:03)
[2017-10-11] MEDS: Gabapentin CAP(*) 100 MG PO SCH ×3 (09:03→20:35)
[2017-10-11] MEDS: Spironolactone TAB* 25 MG PO SCH (09:03)
[2017-10-11] MEDS: cefTRIAXone(*) 1 GM in NS 0.9% 50 ML* 50 ML IVPB SCH (09:03)
[2017-10-11] MEDS: Lisinopril TAB* 10 MG PO SCH (09:05)
[2017-10-11] MEDS: Carvedilol TAB* 25 MG PO SCH ×2 (09:05→20:29)
[2017-10-11] MEDS: oxyCODONE TAB* 5 MG TAB PO PRN ×2 (09:05→15:36)
[2017-10-11] MEDS: Furosemide TAB* 20 MG PO SCH (09:05)
[2017-10-11] MEDS: Multivitamins/Minerals TAB PO SCH (09:05)
[2017-10-11] MEDS: Cyclobenzaprine TAB* 10 MG PO PRN (09:06)
[2017-10-11] MEDS: Docusate CAP* 100 MG PO SCH ×2 (09:06→20:27)
[2017-10-11] MEDS: Diltiazem CD CAP* 180 MG PO SCH (09:06)
[2017-10-11] MEDS: Atorvastatin* 20 MG TAB PO SCH (09:06)
[2017-10-11] MEDS: ALPRAZolam TAB* 0.5 MG PO PRN (15:35)
[2017-10-11] MEDS: Warfarin TAB(*) 10 MG PO SCH (17:28)
[2017-10-11] MEDS: Albuterol 2.5 MG/3 ML NEB.SOL* (0.083%) INH PRN (17:56)
--- NOTE | 2017-10-11 18:04 | PN ---
Subjective Date of Service: 10/11/17 Interval History: Pt seen and examined. Meds and labs reviewed. ROS: Denied STERLING/dizziness, F/C, N/V, CP, SOB, increased cough, sputum production , abd pain, diarrhea, constipation, dysuria, myalgias, arthralgias, throat pain , and new skin lesions. The rest of the 14 point ROS are unremarkable. PHYSICAL EXAM: GEN APPEARANCE: Awake, not in acute distress HEENT: NC/AT, PERRLA, moist oral mucosa, (-) throat erythema NECK: Soft, supple, (-) cervical LAD, (-)JVD HEART: S1S2 WNL, RRR, No MRG CHEST: CTA, BL, GAE, No W/R/R ABD: Soft, ND/NT, NABS 4x Q EXT: No C/C/E SKIN: Warm to touch PSYCH: No active psychosis, hallucinations, depression, SI/HI Family History: Unchanged from Admission Social History: Unchanged from Admission Past Medical History: Unchanged from Admission Objective Active Medications: Acetaminophen (Tylenol Tab*) 650 mg PO Q4H PRN PRN Reason: FEVER/PAIN Last Admin: 10/04/17 20:53 Dose: 650 mg Albuterol (Ventolin 2.5 Mg/3 Ml Neb.Lois*) 2.5 mg INH Q2H PRN PRN Reason: SOB/WHEEZING Last Admin: 10/02/17 23:53 Dose: 2.5 mg Albuterol (Ventolin 2.5 Mg/3 Ml Neb.Lois*) 2.5 mg INH Q4H PRN PRN Reason: SHORTNESS OF BREATH Alprazolam (Xanax Tab*) 0.5 mg PO Q6H PRN PRN Reason: ANXIETY Last Admin: 10/11/17 15:35 Dose: 0.5 mg Atorvastatin Calcium (Lipitor*) 20 mg PO DAILY LIYAH Last Admin: 10/11/17 09:06 Dose: 20 mg Calcium Carbonate (Tums*) 500 mg PO BID PRN PRN Reason: heartburn Last Admin: 10/10/17 08:20 Dose: 500 mg Carvedilol (Coreg Tab*) 50 mg PO BID LIYAH Last Admin: 10/11/17 09:05 Dose: 50 mg Cyclobenzaprine HCl (Flexeril Tab*) 10 mg PO TID PRN PRN Reason: PAIN Last Admin: 10/11/17 09:06 Dose: 10 mg Device (Tiotropium Inhaler Device*) 1 each .SEE ORDER .USE w/ SPIRIVA CAPS [facility] Dextrose (D50w Syringe 50 Ml*) 12.5 gm IV PUSH .FOR FS < 60 - SS PRN PRN Reason: FS < 60 Diltiazem HCl (Cardizem Cd Cap*) 180 mg PO DAILY [facility] Last Admin: 10/11/17 09:06 Dose: 180 mg Docusate Sodium (Colace Cap*) 100 mg PO BID [facility] Last Admin: 10/11/17 09:06 Dose: 100 mg Enoxaparin Sodium (Lovenox(*)) 150 mg SUBCUT Q12H [facility] Last Admin: 10/11/17 09:02 Dose: 150 mg Furosemide (Lasix Tab*) 10 mg PO DAILY [facility] Last Admin: 10/11/17 09:05 Dose: 10 mg Gabapentin (Neurontin Cap(*)) 200 mg PO TID [facility] Last Admin: 10/11/17 13:05 Dose: 200 mg Ceftriaxone Sodium 1 gm/ (Sodium Chloride) 50 mls @ 200 mls/hr IVPB Q24H [facility] Last Admin: 10/11/17 09:03 Dose: 200 mls/hr Insulin Human Lispro (Humalog*) 0 units SUBCUT ACHS [facility] PRN Reason: Protocol Last Admin: 10/11/17 17:09 Dose: Not Given Lisinopril (Prinivil Tab*) 20 mg PO DAILY [facility] Last Admin: 10/11/17 09:05 Dose: 20 mg Methylprednisolone Sodium Succinate (Solu-Medrol 40 Mg) 40 mg IV DAILY [facility] Last Admin: 10/11/17 09:03 Dose: 40 mg Mometasone Furoate/Formoterol Fumar (Dulera 200/5 Mdi*) 2 puff INH BID [facility] Last Admin: 10/11/17 07:59 Dose: 2 puff Multivitamins/Minerals (Theragran/Minerals Tab*) 1 tab PO DAILY [facility] Last Admin: 10/11/17 09:05 Dose: 1 tab Oxycodone HCl (Roxycodone Tab*) 5 mg PO Q6H PRN PRN Reason: PAIN Last Admin: 10/11/17 15:36 Dose: 5 mg Pharmacy Profile Note (Coumadin Daily Reminder*) 0 note FOLLOW UP 1700 [facility] Last Admin: 10/11/17 17:28 Dose: 1 note Polyethylene Glycol/Electrolytes (Miralax*) 17 gm PO DAILY PRN PRN Reason: CONSTIPATION Quetiapine Fumarate (Seroquel Tab*) 800 mg PO BEDTIME [facility] Last Admin: 10/10/17 21:10 Dose: 800 mg Spironolactone (Aldactone Tab*) 50 mg PO DAILY [facility] Last Admin: 10/11/17 09:03 Dose: 50 mg Tiotropium [place] (Spiriva Cap.Inh*) 1 cap INH DAILY [facility] Last Admin: 10/11/17 07:59 Dose: 1 cap Tramadol HCl (Ultram*) 50 mg PO Q6H PRN PRN Reason: PAIN Last Admin: 10/10/17 21:10 Dose: 50 mg Trazodone HCl (Desyrel Tab*) 100 mg PO BEDTIME [facility] Last Admin: 10/10/17 21:08 Dose: 100 mg Warfarin Sodium (Coumadin Tab(*)) 10 mg PO DAILY@1700 [facility] PRN Reason: Protocol Last Admin: 10/11/17 17:28 Dose: 10 mg Vital Signs - 8 hr 10/11/17 10/11/17 10/11/17 13:05 13:18 15:35 Respiratory 20 18 20 Rate 10/11/17 15:36 Respiratory 20 Rate Oxygen Devices in Use Now: Nasal Cannula Result Diagrams: 10/10/17 08:27 10/10/17 08:27 Additional Lab and Data: Lab Results 09/30/17 09/30/17 09/30/17 Range/Units 09:02 09:10 09:10 WBC (3.5-10.8) 10^3/ul RBC (4.0-5.4) 10^6/ul Hgb (12.0-16.0) g/dl Hct (35-47) % MCV (80-97) fL MCH (27-31) pg MCHC (31-36) g/dl RDW (10.5-15) % Plt Count (150-450) 10^3/ul MPV (7.4-10.4) um3 Neut % (Auto) (38-83) % Lymph % (Auto) (25-47) % Porter % (Auto) (0-7) % Eos % (Auto) (0-6) % Baso % (Auto) (0-2) % Absolute Neuts (auto) (1.5-7.7) 10^3/ul Absolute Lymphs (auto) (1.0-4.8) 10^3/ul Absolute Monos (auto) (0-0.8) 10^3/ul Absolute Eos (auto) (0-0.6) 10^3/ul Absolute Basos (auto) (0-0.2) 10^3/ul Absolute Nucleated RBC 10^3/ul Nucleated RBC % Giant Platelets Hypochromasia Target Cells Elliptocytes INR (Anticoag Therapy) (0.77-1.02) APTT (26.0-36.3) seconds D-Dimer, Quantitative (Less Than 230) ng/mL VBG pH (7.33-7.43) VBG pCO2 (41-51) mmHg VBG pO2 (35-45) mmHg VBG HCO3 (24-28) mmol/L VBG O2 Saturation (70-80) % VBG Base Excess (0-4) Sodium 138 L (139-145) mmol/L Potassium 4.2 (3.5-5.0) mmol/L Chloride 104 (101-111) mmol/L Carbon Dioxide 28 (22-32) mmol/L Anion Gap 6 (2-11) mmol/L BUN 26 H (6-24) mg/dL Creatinine 1.32 H (0.51-0.95) mg/dL Est GFR ( Amer) 52.4 (>60) Est GFR (Non-Af Amer) 40.8 (>60) BUN/Creatinine Ratio 19.7 (8-20) Glucose 111 H (70-100) mg/dL Lactic Acid (0.5-2.0) mmol/L Calcium 9.4 (8.6-10.3) mg/dL Magnesium 1.9 (1.9-2.7) mg/dL Total Bilirubin 0.30 (0.2-1.0) mg/dL AST 14 (13-39) U/L ALT 10 (7-52) U/L Alkaline Phosphatase 73 (34-104) U/L Total Creatine Kinase 38 (10-223) U/L CK-MB (CK-2) 1.1 (0.6-6.3) ng/mL Troponin I 0.01 (<0.04) ng/mL C-Reactive Protein 25.63 H (< 5.00) mg/L B-Natriuretic Peptide 51 ( - 100) pg/mL Total Protein 6.6 (6.4-8.9) g/dL Albumin 3.8 (3.2-5.2) g/dL Globulin 2.8 (2-4) g/dL Albumin/Globulin Ratio 1.4 (1-3) Lipase < 10 L (11.0-82.0) U/L Procalcitonin (<0.6) ng/mL TSH 0.72 (0.34-5.60) mcIU/mL Influenza A (Rapid) Negative (Negative) Influenza B (Rapid) Negative (Negative) 09/30/17 09/30/17 09/30/17 Range/Units 09:10 09:10 09:10 WBC 6.5 (3.5-10.8) 10^3/ul RBC 4.42 (4.0-5.4) 10^6/ul Hgb 11.6 L (12.0-16.0) g/dl Hct 37 (35-47) % MCV 84 (80-97) fL MCH 26 L (27-31) pg MCHC 31 (31-36) g/dl RDW 20 H (10.5-15) % Plt Count 140 L (150-450) 10^3/ul MPV 10.3 (7.4-10.4) um3 Neut % (Auto) 75.2 (38-83) % Lymph % (Auto) 15.9 L (25-47) % Porter % (Auto) 7.6 H (0-7) % Eos % (Auto) 0.7 (0-6) % Baso % (Auto) 0.6 (0-2) % Absolute Neuts (auto) 4.9 (1.5-7.7) 10^3/ul Absolute Lymphs (auto) 1.0 (1.0-4.8) 10^3/ul Absolute Monos (auto) 0.5 (0-0.8) 10^3/ul Absolute Eos (auto) 0 (0-0.6) 10^3/ul Absolute Basos (auto) 0 (0-0.2) 10^3/ul Absolute Nucleated RBC 0 10^3/ul Nucleated RBC % 0.3 Giant Platelets Present Hypochromasia 1+ Target Cells 1+ Elliptocytes 1+ INR (Anticoag Therapy) (0.77-1.02) APTT (26.0-36.3) seconds D-Dimer, Quantitative (Less Than 230) ng/mL VBG pH (7.33-7.43) VBG pCO2 (41-51) mmHg VBG pO2 (35-45) mmHg VBG HCO3 (24-28) mmol/L VBG O2 Saturation (70-80) % VBG Base Excess (0-4) Sodium (139-145) mmol/L Potassium (3.5-5.0) mmol/L Chloride (101-111) mmol/L Carbon Dioxide (22-32) mmol/L Anion Gap (2-11) mmol/L BUN (6-24) mg/dL Creatinine (0.51-0.95) mg/dL Est GFR ( Amer) (>60) Est GFR (Non-Af Amer) (>60) BUN/Creatinine Ratio (8-20) Glucose (70-100) mg/dL Lactic Acid 0.7 (0.5-2.0) mmol/L Calcium (8.6-10.3) mg/dL Magnesium (1.9-2.7) mg/dL Total Bilirubin (0.2-1.0) mg/dL AST (13-39) U/L ALT (7-52) U/L Alkaline Phosphatase (34-104) U/L Total Creatine Kinase (10-223) U/L CK-MB (CK-2) (0.6-6.3) ng/mL Troponin I (<0.04) ng/mL C-Reactive Protein (< 5.00) mg/L B-Natriuretic Peptide ( - 100) pg/mL Total Protein (6.4-8.9) g/dL Albumin (3.2-5.2) g/dL Globulin (2-4) g/dL Albumin/Globulin Ratio (1-3) Lipase (11.0-82.0) U/L Procalcitonin < 0.1 (<0.6) ng/mL TSH (0.34-5.60) mcIU/mL Influenza A (Rapid) (Negative) Influenza B (Rapid) (Negative) 09/30/17 09/30/17 Range/Units 09:30 09:40 WBC (3.5-10.8) 10^3/ul RBC (4.0-5.4) 10^6/ul Hgb (12.0-16.0) g/dl Hct (35-47) % MCV (80-97) fL MCH (27-31) pg MCHC (31-36) g/dl RDW (10.5-15) % Plt Count (150-450) 10^3/ul MPV (7.4-10.4) um3 Neut % (Auto) (38-83) % Lymph % (Auto) (25-47) % Porter % (Auto) (0-7) % Eos % (Auto) (0-6) % Baso % (Auto) (0-2) % Absolute Neuts (auto) (1.5-7.7) 10^3/ul Absolute Lymphs (auto) (1.0-4.8) 10^3/ul Absolute Monos (auto) (0-0.8) 10^3/ul Absolute Eos (auto) (0-0.6) 10^3/ul Absolute Basos (auto) (0-0.2) 10^3/ul Absolute Nucleated RBC 10^3/ul Nucleated RBC % Giant Platelets Hypochromasia Target Cells Elliptocytes INR (Anticoag Therapy) 3.25 H (0.77-1.02) APTT 37.9 H (26.0-36.3) seconds D-Dimer, Quantitative < 200 (Less Than 230) ng/mL VBG pH 7.27 L (7.33-7.43) VBG pCO2 72 H (41-51) mmHg VBG pO2 35 (35-45) mmHg VBG HCO3 27.4 (24-28) mmol/L VBG O2 Saturation 64.7 L (70-80) % VBG Base Excess 4.2 H (0-4) Sodium (139-145) mmol/L Potassium (3.5-5.0) mmol/L Chloride (101-111) mmol/L Carbon Dioxide (22-32) mmol/L Anion Gap (2-11) mmol/L BUN (6-24) mg/dL Creatinine (0.51-0.95) mg/dL Est GFR ( Amer) (>60) Est GFR (Non-Af Amer) (>60) BUN/Creatinine Ratio (8-20) Glucose (70-100) mg/dL Lactic Acid (0.5-2.0) mmol/L Calcium (8.6-10.3) mg/dL Magnesium (1.9-2.7) mg/dL Total Bilirubin (0.2-1.0) mg/dL AST (13-39) U/L ALT (7-52) U/L Alkaline Phosphatase (34-104) U/L Total Creatine Kinase (10-223) U/L CK-MB (CK-2) (0.6-6.3) ng/mL Troponin I (<0.04) ng/mL C-Reactive Protein (< 5.00) mg/L B-Natriuretic Peptide ( - 100) pg/mL Total Protein (6.4-8.9) g/dL Albumin (3.2-5.2) g/dL Globulin (2-4) g/dL Albumin/Globulin Ratio (1-3) Lipase (11.0-82.0) U/L Procalcitonin (<0.6) ng/mL TSH (0.34-5.60) mcIU/mL Influenza A (Rapid) (Negative) Influenza B (Rapid) (Negative) Microbiology and Other Data: Microbiology 09/30/17 20:53 Urine Culture - Final Urine 09/30/17 20:53 Legionella Urinary Antigen - Final Urine Negative Legionella Antigen Streptococcus pneumoniae Ag Screen - Final Negative S. pneumo Antigen 09/30/17 12:45 Nasal Screen MRSA (PCR)(JOAO) - Final Nasal Mrsa Not Detected Assess/Plan/Problems-Billing Assessment: Mrs. 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 - Patient Problems (1) Acute exacerbation of CHF (congestive heart failure) Current Visit: Yes Status: Acute Code(s): I50.9 - HEART FAILURE, UNSPECIFIED SNOMED Code(s): 14117367 Comment: - Repeat echo is unchanged. - Continue lasix to PO 10 mg --Check BNP in AM --Continue to monitor I/O's (2) Afib Current Visit: Yes Status: Acute Code(s): I48.91 - UNSPECIFIED ATRIAL FIBRILLATION SNOMED Code(s): 09778186 Comment: - Seen by Dr. Goodwin 09/27/17 - her Afib rate was not well controlled during the visit and he felt this could be in part related to Ibrutinib. He added Cardizem 180mg/day but patient was unable to pick it up. He was planning to see her 1 week after her visit as he was concerned she did not tolerate Afib RVR in the past with worsening CHF. He had stopped amiodarone given its toxicity and felt Tykosin or Sotalol would be difficult due her Seroquel use. His plan was for BERTO/CV if she remained in rapid Afib with beta regina and diltiazem. - Rate is controlled now, off Cardizem drip - continue Coreg and Cardizem PO - Continue Warfarin. (3) COPD exacerbation Current Visit: Yes Status: Acute Code(s): J44.1 - CHRONIC OBSTRUCTIVE PULMONARY DISEASE W (ACUTE) EXACERBATION SNOMED Code(s): 285000524 Comment: - Secondary to viral bronchitis, presumed Influenza. - Continue bronchodilators, steroids, and D/C Rocephin (4) Mantle cell lymphoma Current Visit: Yes Status: Acute Code(s): C83.10 - MANTLE CELL LYMPHOMA, UNSPECIFIED SITE SNOMED Code(s): 676322815 Comment: Ibrutinib on hold while admitted; needs to be resumed upon discharge (5) Back pain Current Visit: Yes Status: Acute Code(s): M54.9 - DORSALGIA, UNSPECIFIED SNOMED Code(s): 268811647 Comment: --Continue current regimen --Will add Gabapentin to regimen for synergy --Improved control Status and Disposition: - Pt was referred to rehab and had a bed until her mentioned she would like to take her home. Pt agreed. Unfortunately, she does have some needs that will need to be set-up and will require to stay another night
[2017-10-11] MEDS: QUEtiapine TAB* 100 MG PO SCH (20:31)
[2017-10-11] MEDS: traZODone TAB* 100 MG PO SCH (20:35)
[2017-10-12] MEDS: Cyclobenzaprine TAB* 10 MG PO PRN ×2 (01:12→13:07)
[2017-10-12] MEDS: oxyCODONE TAB* 5 MG TAB PO PRN ×4 (01:12→21:38)
[2017-10-12] MEDS: methylPREDNISolone SOD 40 MG* 1 ML VIAL IV SCH (07:41)
[2017-10-12] MEDS: Gabapentin CAP(*) 100 MG PO SCH ×3 (07:41→21:37)
[2017-10-12] MEDS: Spironolactone TAB* 25 MG PO SCH (07:41)
[2017-10-12] MEDS: Enoxaparin(*) 150 MG/ML 1 ML SYRINGE SUBCUT SCH ×2 (07:41→20:40)
[2017-10-12] MEDS: ALPRAZolam TAB* 0.5 MG PO PRN ×2 (07:42→15:31)
[2017-10-12] MEDS: Docusate CAP* 100 MG PO SCH ×2 (07:42→21:38)
[2017-10-12] MEDS: Atorvastatin* 20 MG TAB PO SCH (07:42)
[2017-10-12] MEDS: Carvedilol TAB* 25 MG PO SCH ×2 (07:42→21:38)
[2017-10-12] MEDS: Multivitamins/Minerals TAB PO SCH (07:42)
[2017-10-12] MEDS: traMADol TAB* 50 MG PO PRN ×2 (07:42→18:34)
[2017-10-12] MEDS: Lisinopril TAB* 10 MG PO SCH (07:42)
[2017-10-12] MEDS: Diltiazem CD CAP* 180 MG PO SCH (07:43)
[2017-10-12] MEDS: Furosemide TAB* 20 MG PO SCH (07:43)
[2017-10-12] MEDS: Insulin LISPRO* 1 UNITS UNIT SUBCUT SCH ×4 (08:37→21:39)
[2017-10-12] MEDS: Tiotropium CAP.INH* CAP.INH/18 MCG (USE ORDER SET !) INH SCH (08:55)
[2017-10-12] MEDS: Mometasone/Formoter 200/5 MDI INH SCH ×2 (08:56→20:18)
[2017-10-12] MEDS: Warfarin TAB(*) 10 MG PO SCH (18:34)
[2017-10-12] MEDS: traZODone TAB* 100 MG PO SCH (21:37)
[2017-10-12] MEDS: guaiFENesin ER TAB 600 MG PO SCH (21:37)
[2017-10-12] MEDS: QUEtiapine TAB* 100 MG PO SCH (21:38)
--- NOTE | 2017-10-13 00:47 | DS ---
CC: Dr. Blake Stuart * DISCHARGE SUMMARY: DATE OF ADMISSION: 09/30/17 DATE OF DISCHARGE: 10/12/17 DISCHARGE DIAGNOSES: As follows: 1. Acute respiratory failure secondary to both: A. Congestive heart failure exacerbation. B. Chronic obstructive pulmonary disease exacerbation. 2. Atrial fibrillation. 3. History of mantle cell lymphoma. 4. History of back pain. HISTORY OF PRESENT ILLNESS/HOSPITAL COURSE: The patient is a 62-year-old - [place] lady with history of bilateral PEs, mantle cell lymphoma, CKD and AFib, who presented to our facility on 09/30/17 with a chief complaint of shortness of breath and cough. She was found to be on both COPD and CHF exacerbation and has been placed on rapid Solu-Medrol/steroid taper as well as diuretics. Her atrial fibrillation was also controlled during this hospitalization stay and when she came in, she had AFib with RVR. She was then subsequently seen by physical therapy, who recommended rehab and hence her discharge to [facility]Rehab. The patient had been advised to follow up in 3 days to 1 week to her primary care physician and to take her medications as prescribed especially with her rapid prednisone taper that has been given to her by paper script. The rest of the medications were sent electronically. PHYSICAL EXAMINATION: Reveals the following vital signs of blood pressure of 125/48, 18 per minute respiratory rate, 91 per minute heart rate, 97.3 degrees Fahrenheit. General Appearance: The patient is awake, not in acute distress. HEENT: Normocephalic, atraumatic. PERRLA. Extraocular muscles are intact. Negative for icterus. Moist oral mucosa. Negative for throat erythema. Neck is soft, supple with no cervical lymphadenopathy. No JVD. Heart: S1, S2 within normal limits. Regular rate and rhythm. No murmurs, rubs, or gallops. Chest: Clear to auscultation bilaterally. Good air entry. No wheezes, rales, or rhonchi. Abdomen is soft, nondistended, nontender. Normoactive bowel sounds x4. Extremities: No cyanosis or clubbing with 1+ bilateral lower extremity edema. Psychiatric: No active psychosis, depression, suicidal or homicidal ideations. Skin is warm to touch. DISCHARGE MEDICATIONS: As follows: 1. Rapid prednisone taper. 2. P.r.n. Tylenol. 3. Atorvastatin. 4. Carvedilol. 5. Cyclobenzaprine. 6. Colace. 7. Gabapentin. 8. Lisinopril. 9. Prednisone rapid taper. 10. Oxycodone. 11. MiraLAX. 12. Quetiapine. 13. Spiriva. 14. Spironolactone. 15. Tiotropium. 16. Trazodone. 17. Coumadin. 18. Diltiazem. 19. Ibrutinib. 20. Mometasone/formoterol. 21. Nicotine inhaler. 22. Nicotine patch. 23. Potassium chloride. 24. Torsemide. TIME SPENT: The total time spent evaluating the patient, reviewing pertinent data and appropriate documentation is greater than 30 minutes. [id number]/[facility] #: [id number] [facility]
[2017-10-13] MEDS ORDERED: Mouth Piece, Nicotine* 1 EACH CARTRIDGE INH PRN (05:16)
[2017-10-13] MEDS ORDERED: Nicotine Inhaler* 10 MG AMP INH PRN (05:16)
[2017-10-13] MEDS ORDERED: Nicotine Inhaler* 10 MG AMP ONE (05:20)
[2017-10-13] MEDS ORDERED: Mouth Piece, Nicotine* 1 EACH CARTRIDGE ONE (05:20)
[2017-10-13] MEDS: ALPRAZolam TAB* 0.5 MG PO PRN (05:22)
[2017-10-13 06:18] LABS: INR 1.85 (0.77-1.02)
[2017-10-13] MEDS: traMADol TAB* 50 MG PO PRN (06:26)
[2017-10-13] MEDS: Mometasone/Formoter 200/5 MDI INH SCH (07:37)
[2017-10-13] MEDS: Tiotropium CAP.INH* CAP.INH/18 MCG (USE ORDER SET !) INH SCH (07:38)
[2017-10-13] MEDS: Insulin LISPRO* 1 UNITS UNIT SUBCUT SCH (07:55)
[2017-10-13] MEDS: methylPREDNISolone SOD 40 MG* 1 ML VIAL IV SCH (08:53)
[2017-10-13] MEDS: Furosemide TAB* 20 MG PO SCH (08:53)
[2017-10-13] MEDS: Enoxaparin(*) 150 MG/ML 1 ML SYRINGE SUBCUT SCH (08:54)
[2017-10-13] MEDS: Lisinopril TAB* 10 MG PO SCH (08:54)
[2017-10-13] MEDS: Gabapentin CAP(*) 100 MG PO SCH (08:55)
[2017-10-13] MEDS: Carvedilol TAB* 25 MG PO SCH (08:55)
[2017-10-13] MEDS: Multivitamins/Minerals TAB PO SCH (08:57)
[2017-10-13] MEDS: Docusate CAP* 100 MG PO SCH (08:58)
[2017-10-13] MEDS: guaiFENesin ER TAB 600 MG PO SCH (08:58)
[2017-10-13] MEDS: Atorvastatin* 20 MG TAB PO SCH (08:58)
[2017-10-13] MEDS: Diltiazem CD CAP* 180 MG PO SCH (08:59)
[2017-10-13] MEDS: Spironolactone TAB* 25 MG PO SCH (08:59)
[2017-10-13] MEDS: Calcium Carbonate CHEW TAB* 500 MG (TUMS) PO PRN (09:19)
--- NOTE | 2017-10-13 10:27 | DS ---
ADDENDUM: DISCHARGE SUMMARY: DATE OF SERVICE / DISCHARGE: 10/13/2017 SUBJECTIVE: Patient was seen and examined. Meds and labs reviewed. No overnight issues. Patient stayed overnight pending bed availability for rehab. There are no changes in plan from what was described in the recently dictated discharge summary late afternoon yesterday. PHYSICAL EXAMINATION: Reveals the following vital signs: Most recent vital signs of records, blood pressure of 106/67, respiratory rate of 20, heart rate of 75, saturating at 99%. General Appearance: The patient is awake, alert, oriented x3, not in acute distress, obese. HEENT: Normocephalic, atraumatic. PERRLA. Extraocular muscles are intact. Negative for icterus. Moist oral mucosa. Negative throat erythema. Neck: Soft, supple, with no cervical lymphadenopathy. No JVD. Heart: S1, S2, within normal limits. Regular rate and rhythm. No murmurs, rubs or gallops. Chest: Clear to auscultation bilaterally. Good air entry. No wheezes, rales, or rhonchi. Abdomen: Soft, nondistended, and nontender. Normoactive bowel sounds x4 quadrants. Extremities: No cyanosis or clubbing, with 1 to 2+ bilateral lower extremity edema, although difficult to assess volume status given obesity. Psychiatric: No active psychosis, depression, suicidal or homicidal ideations. Skin: Warm to touch. ASSESSMENT AND PLAN: There has been no overnight issues and hence no change in plan. Please see my recently dictated discharge summary dictated late afternoon yesterday. [id number]/[facility] #: [id number] [facility]D
[2017-10-13 10:59] VITALS: BP 101/67
--- NOTE | 2017-10-14 12:50 | DS ---
ADDENDUM: This is being dictated on 10/14/17 as a clarification. The patient was given a script for repeat INR in 3 days. The patient has been discharged on full- dose Lovenox and was restarted on her Coumadin. Facility was advised to follow up INR and to discontinue Lovenox when it has been therapeutic. [id number]/[facility] #: [id number] [facility]
== END 2017-10-13 11:23 | DRG 291 ==
LOC: ED 08:31 → ICU 11:15 → MEDTELE 10-02 12:37
PROVIDERS: ADMIT Internal Medicine; ATTEND Student in an Organized Health Care Education/Training Program
PROC: 5A09357 Assistance with Respiratory Ventilation, Less than 24 Consecutive Hours, Continuous Positive Airway Pressure (ICD-10-PCS; principal; 2017-09-30)
DX: I13.0 Hypertensive heart and chronic kidney disease with heart failure and stage 1 through stage 4 chronic kidney disease, or unspecified chronic kidney disease (principal); I50.43 Acute on chronic combined systolic (congestive) and diastolic (congestive) heart failure; J96.01 Acute respiratory failure with hypoxia; J44.1 Chronic obstructive pulmonary disease with (acute) exacerbation; C83.10 Mantle cell lymphoma, unspecified site; Z68.43 Body mass index [BMI] 50.0-59.9, adult; I48.91 Unspecified atrial fibrillation; N18.9 Chronic kidney disease, unspecified; G47.33 Obstructive sleep apnea (adult) (pediatric); E78.5 Hyperlipidemia, unspecified; E66.01 Morbid (severe) obesity due to excess calories; M54.9 Dorsalgia, unspecified; D64.9 Anemia, unspecified; F41.9 Anxiety disorder, unspecified; R73.9 Hyperglycemia, unspecified; F17.210 Nicotine dependence, cigarettes, uncomplicated; T38.0X5A Adverse effect of glucocorticoids and synthetic analogues, initial encounter; Z79.01 Long term (current) use of anticoagulants; Z79.51 Long term (current) use of inhaled steroids; Z86.711 Personal history of pulmonary embolism; Z80.1 Family history of malignant neoplasm of trachea, bronchus and lung; Z72.89 Other problems related to lifestyle; Z95.810 Presence of automatic (implantable) cardiac defibrillator; Z91.14 Patient's other noncompliance with medication regimen; Z88.6 Allergy status to analgesic agent; Z99.81 Dependence on supplemental oxygen
CPT/HCPCS: 36415; 71045; 80048; 80053; 81003; 81015; 82550; 82553; 82803; 83036; 83605; 83690; 83735; 83880; 84145; 84443; 84484; 85025; 85379; 85610; 85730; 86140; 87040; 87070; 87086; 87205; 87502; 87641; 87899; 93005; 93306; 94003; 94640; 94660; 94760; 99232; 99285; A9270-GY; C8929; G8978-GP-CJ; G8978-GP-CK; G8978-GP-CL; G8979-GP-CI; G8987-GO-CK; G8988-GO-CI; J0456; J0696; J1650; J1940; J2920; J2930; J7512

== ENCOUNTER 2017-10-25 09:01 | Inpatient (IN) | payer OTHER, MEDICARE ==
[2017-10-25 10:01] LABS: Hematocrit 28 % (35-47); Mean Corpuscular HGB Conc 32 g/dl (31-36); Mean Corpuscular Hemoglobin 26 pg (27-31); Mean Corpuscular Volume 81 fL (80-97); Mean Platelet Volume 11.5 um3 (7.4-10.4); Platelet Count 137 10^3/ul (150-450); Red Blood Count 3.49 10^6/ul (4.0-5.4); Red Cell Distribution Width 20 % (10.5-15); White Blood Count 3.5 10^3/ul (3.5-10.8)
[2017-10-25 10:08] LABS: EGFR Non-African American 8.1 (>60)
[2017-10-25 10:14] LABS: INR 5.64 (0.77-1.02)
--- NOTE | 2017-10-25 10:25 | RAD ---
INDICATION: Shortness of breath. COMPARISON: Comparison is made with prior studies from June 26 2017 and September 30, 2017. TECHNIQUE: A portable view of the chest was obtained. FINDINGS: The heart is moderately enlarged. There is a transvenous cardiac pacemaker defibrillator present. There is diffuse prominence of the interstitial markings similar to the prior study. IMPRESSION: FINDINGS MOST CONSISTENT WITH CONGESTIVE HEART FAILURE.
[2017-10-25] MEDS ORDERED: NS 0.9% 1000 ML* 1,000 ML IV ONE (10:31)
[2017-10-25 10:33] LABS: Monocytes % 17 % (0-7)
[2017-10-25] MEDS ORDERED: Albuterol/Ipratropium NEB.SOL* Albuterol 2.5 MG/Ipratropium 0.5 MG 3 ML ONE (11:34)
--- NOTE | 2017-10-25 12:17 | RAD ---
HISTORY: Confusion, multiple hematomas, history of lymphoma COMPARISONS: None TECHNIQUE: Multiple contiguous axial CT scans were obtained of the head without intravenous contrast. FINDINGS: HEMORRHAGE/INFARCT: There is no hemorrhage or acute infarct. MASSES/SHIFT: There is no mass or shift. EXTRA-AXIAL SPACES: There are no extra-axial fluid collections. SULCI AND VENTRICLES: The sulci and ventricles are normal in size and position for the patient's stated age. CEREBRUM: There is hypoattenuation of the periventricular and subcortical white matter. BRAINSTEM: There are no focal parenchymal abnormalities. CEREBELLUM: There are no focal parenchymal abnormalities. VESSELS: The vessels are grossly normal. PARANASAL SINUSES: The paranasal sinuses are clear. ORBITS: The orbits are unremarkable. BONES AND SOFT TISSUE: No bone or soft tissue abnormalities are noted. OTHER: None IMPRESSION: NO ACUTE INTRACRANIAL PATHOLOGY. CHRONIC SMALL VESSEL ISCHEMIC CHANGES.
[2017-10-25] MEDS ORDERED: Nicotine PATCH 14 MG/24 HR* PATCH TRANSDERM PRN (12:30)
[2017-10-25] MEDS ORDERED: Albuterol 2.5 MG/3 ML NEB.SOL* (0.083%) INH PRN (12:30)
--- NOTE | 2017-10-25 12:59 | ED ---
Parrish Bello Jennifer, scribed for Italo Faulkner MD on 10/25/17 at 0938 . Respiratory - HPI Summary HPI Summary: The pt is a 62 y/o F brought in from [facility] for lethargy and respiratory distress today. The patient can be awoken with verbal stimuli but will then fall right back asleep. Per nurse, stats were in the 80s despite being on CPAP and NC. When asked if she had a headache and fell due to bruising on her arms and legs, she said yes. LEVEL 5 CAVEAT: HPI LIMITED DUE TO AMS. - History of Current Complaint Chief Complaint: EDRespiratoryDistress Stated Complaint: RESP DISTRESS Time Seen by Provider: 10/25/17 09:11 Hx Obtained From: Patient Onset/Duration: Sudden Onset, Lasting Hours - 2-3 hours, Still Present Timing: Constant Initial Severity: Moderate Current Severity: Moderate Pain Intensity: 5 - Allergy/Home Medications Allergies/Adverse Reactions: Allergies Allergy/AdvReac Type Severity Reaction Status Date / Time aspirin Allergy Difficulty Verified 09/30/17 08:42 Breathing Home Medications: Home Medications Albuterol 2.5MG/3ML (0.083%)* [Ventolin 2.5 MG/3 ML NEB.PALLAVI*] 2.5 mg INH Q4H PRN 10/25/17 [History Confirmed 10/25/17] GuaiFENesin DM* [Robitussin DM*] 10 ml PO Q4H PRN 10/25/17 [History Confirmed ] Warfarin TAB(*) [Coumadin TAB(*)] 10 mg PO SUSA 10/25/17 [History Confirmed ] predniSONE TAB* [Deltasone TAB*] 30 mg PO DAILY 10/25/17 [History Confirmed ] PMH/Surg Hx/FS Hx/Imm Hx Endocrine/Hematology History: Denies: Hx Diabetes Cardiovascular History: Reports: Hx Angina, Hx Atrial Fibrillation, Hx Auto Implanted Cardiovert Defib - defibrillator, Hx Congestive Heart Failure, Hx Hypertension, Other Cardiovascular Problems/Disorders Respiratory History: Reports: Hx Chronic Obstructive Pulmonary Disease (COPD), Hx Pulmonary Embolism - current bilat PE's, Other Respiratory Problems/ Disorders - ON 02 AT NIGHT History: Reports: Hx Chronic Renal Failure, Hx Renal Disease Musculoskeletal History: Reports: Hx Orthopedic Injury Sensory History: Denies: Hx Contacts or Glasses, Hx Hearing Aid Opthamlomology History: Denies: Hx Contacts or Glasses Psychiatric History: Reports: Hx Anxiety, Hx Depression - Cancer History Cancer Type, Location and Year: lymphoma/12/23 - Surgical History Surgery Procedure, Year, and Place: hernia repair/orif right foot Infectious Disease History: No Infectious Disease History: Denies: Hx of Known/Suspected MRSA, Traveled Outside the [place] in Last 30 Days - Family History Known Family History: Positive: Other - Father - CA Negative: Cardiac Disease, Hypertension, Diabetes - Social History Alcohol Use: Occasionally Alcohol Amount: monthly Hx Substance Use: No Substance Use Type: Reports: None Hx Tobacco Use: Yes Smoking Status (MU): Light Every Day Tobacco Smoker Type: Cigarettes Amount Used/How Often: 1/2 ppd Length of Time of Smoking/Using Tobacco: 39 years Have You Smoked in the Last Year: Yes Review of Systems Respiratory: Other - respiratory distress Positive: Bruising - arms and legs Neurological: Other - Lethargic, AMS Positive: Headache All Other Systems Reviewed And Are Negative: No - Comments Additional Review of Systems Comments: LEVEL 5 CAVEAT: ROS LIMITED DUE TO AMS. Physical Exam - Summary Physical Exam Summary: Appearance: The patient is morbidly obese and in no acute distress and in no acute pain. Skin: The skin is warm and dry and skin color reflects adequate perfusion. HEENT: The head is normocephalic and atraumatic. The pupils are 2-3 mm. The conjunctivae are clear and without drainage. Nares are patent and without drainage. Mouth reveals moist mucous membranes and the throat is without erythema and exudate. The external ears are intact. The ear canals are patent and without drainage. The tympanic membranes are intact. Neck: the neck is supple with full range of motion and non-tender. There are no carotid bruits. There is no neck vein distension. Respiratory: Chest is non-tender. Upper airway sounds when she breathes. Cardiovascular: Heart is regular rate and rhythm. There is no murmur or rub auscultated. There is no peripheral edema and pulses are symmetrical and equal. Abdomen: The abdomen is soft. There are normal bowel sounds heard in all four quadrants and there is no organomegaly palpated. Musculoskeletal: Extremities are non-tender with full range of motion. There is good capillary refill. Neurological: Answers some questions seemingly appropriately and other times doesn't respond. Cranial nerves are grossly intact. Deep tendon reflexes are symmetrical and equal in all four extremities. LEVEL 5 CAVEAT: PE LIMITED DUE TO AMS. Triage Information Reviewed: Yes Vital Signs On Initial Exam: Initial Vitals Temp Pulse Resp BP Pulse Ox 97.1 F 94 23 98/51 100 10/25/17 09:05 10/25/17 09:05 10/25/17 09:05 10/25/17 09:05 10/25/17 09:05 Vital Signs Reviewed: Yes Completion Of Physical Exam Limited Due To: Altered Mental Status Diagnostics - Vital Signs Vital Signs Temp Pulse Resp BP Pulse Ox 10/25/17 09:10 95 32 98 10/25/17 09:05 97.1 F 94 23 98/51 100 - Laboratory Lab Results: Lab Results 10/25/17 10/25/17 10/25/17 Range/Units 09:41 09:41 09:41 WBC 3.5 (3.5-10.8) 10^3/ul RBC 3.49 L (4.0-5.4) 10^6/ul Hgb 9.0 L (12.0-16.0) g/dl Hct 28 L (35-47) % MCV 81 (80-97) fL MCH 26 L (27-31) pg MCHC 32 (31-36) g/dl RDW 20 H (10.5-15) % Plt Count 137 L (150-450) 10^3/ul MPV 11.5 H (7.4-10.4) um3 Neut % (Auto) Not Reportable Lymph % (Auto) Not Reportable Saunders % (Auto) Not Reportable Eos % (Auto) Not Reportable Baso % (Auto) Not Reportable Absolute Neuts (auto) Not Reportable Absolute Lymphs (auto) Not Reportable Absolute Monos (auto) Not Reportable Absolute Eos (auto) Not Reportable Absolute Basos (auto) Not Reportable Absolute Nucleated RBC Not Reportable Immature Gran % 2 (0-9) % Neutrophils % 21 L (38-83) % Band Neutrophils % 2 (0-8) % Lymphocytes % 58 H (25-47) % Monocytes % 17 H (0-7) % Eosinophils % 0 (0-6) % Basophils % 2 (0-2) % Nucleated RBC % Not Reportable Abs Neuts (Manual) 0.7 L* (1.5-7.7) 10^3/ul Abs Lymphs (Manual) 2.0 (1.0-4.8) 10^3/ul Abs Monocytes (Manual) 0.6 (0-0.8) 10^3/ul Absolute Eos (Manual) 0 (0-0.6) 10^3/ul Abs Basophils (Manual) 0.1 (0-0.2) 10^3/ul Normal RBC Morphology Not Reportable Hypochromasia 1+ Microcytosis 1+ INR (Anticoag Therapy) (0.77-1.02) D-Dimer, Quantitative (Less Than 230) ng/mL ABG pH (7.35-7.45) ABG pCO2 (35-45) mmHg ABG pO2 (80-100) mmHg ABG HCO3 (19-31) mmol/L ABG O2 Saturation (95-98) % ABG Base Excess (-2.0-2.0) Sodium 140 (139-145) mmol/L Potassium 6.5 H* (3.5-5.0) mmol/L Chloride 101 (101-111) mmol/L Carbon Dioxide 31 (22-32) mmol/L Anion Gap 8 (2-11) mmol/L BUN 113 H (6-24) mg/dL Creatinine 5.33 H (0.51-0.95) mg/dL Est GFR ( Amer) 10.5 (>60) Est GFR (Non-Af Amer) 8.1 (>60) BUN/Creatinine Ratio 21.2 H (8-20) Glucose 96 (70-100) mg/dL Lactic Acid 0.8 (0.5-2.0) mmol/L Calcium 9.1 (8.6-10.3) mg/dL Phosphorus 6.8 H (2.5-5.0) mg/dL Magnesium 2.3 (1.9-2.7) mg/dL Total Bilirubin 0.50 (0.2-1.0) mg/dL AST 35 (13-39) U/L ALT 25 (7-52) U/L Alkaline Phosphatase 46 (34-104) U/L Total Creatine Kinase Pending Troponin I 0.04 H* (<0.04) ng/mL C-Reactive Protein 168.67 H (< 5.00) mg/L B-Natriuretic Peptide ( - 100) pg/mL Total Protein 6.2 L (6.4-8.9) g/dL Albumin 3.3 (3.2-5.2) g/dL Globulin 2.9 (2-4) g/dL Albumin/Globulin Ratio 1.1 (1-3) TSH Pending Blood Type Antibody Screen 10/25/17 10/25/17 10/25/17 Range/Units 09:41 09:41 09:41 WBC (3.5-10.8) 10^3/ul RBC (4.0-5.4) 10^6/ul Hgb (12.0-16.0) g/dl Hct (35-47) % MCV (80-97) fL MCH (27-31) pg MCHC (31-36) g/dl RDW (10.5-15) % Plt Count (150-450) 10^3/ul MPV (7.4-10.4) um3 Neut % (Auto) Lymph % (Auto) Saunders % (Auto) Eos % (Auto) Baso % (Auto) Absolute Neuts (auto) Absolute Lymphs (auto) Absolute Monos (auto) Absolute Eos (auto) Absolute Basos (auto) Absolute Nucleated RBC Immature Gran % (0-9) % Neutrophils % (38-83) % Band Neutrophils % (0-8) % Lymphocytes % (25-47) % Monocytes % (0-7) % Eosinophils % (0-6) % Basophils % (0-2) % Nucleated RBC % Abs Neuts (Manual) (1.5-7.7) 10^3/ul Abs Lymphs (Manual) (1.0-4.8) 10^3/ul Abs Monocytes (Manual) (0-0.8) 10^3/ul Absolute Eos (Manual) (0-0.6) 10^3/ul Abs Basophils (Manual) (0-0.2) 10^3/ul Normal RBC Morphology Hypochromasia Microcytosis INR (Anticoag Therapy) 5.64 H* (0.77-1.02) D-Dimer, Quantitative < 200 (Less Than 230) ng/mL ABG pH (7.35-7.45) ABG pCO2 (35-45) mmHg ABG pO2 (80-100) mmHg ABG HCO3 (19-31) mmol/L ABG O2 Saturation (95-98) % ABG Base Excess (-2.0-2.0) Sodium (139-145) mmol/L Potassium (3.5-5.0) mmol/L Chloride (101-111) mmol/L Carbon Dioxide (22-32) mmol/L Anion Gap (2-11) mmol/L BUN (6-24) mg/dL Creatinine (0.51-0.95) mg/dL Est GFR ( Amer) (>60) Est GFR (Non-Af Amer) (>60) BUN/Creatinine Ratio (8-20) Glucose (70-100) mg/dL Lactic Acid (0.5-2.0) mmol/L Calcium (8.6-10.3) mg/dL Phosphorus (2.5-5.0) mg/dL Magnesium (1.9-2.7) mg/dL Total Bilirubin (0.2-1.0) mg/dL AST (13-39) U/L ALT (7-52) U/L Alkaline Phosphatase (34-104) U/L Total Creatine Kinase Troponin I (<0.04) ng/mL C-Reactive Protein (< 5.00) mg/L B-Natriuretic Peptide 116 H ( - 100) pg/mL Total Protein (6.4-8.9) g/dL Albumin (3.2-5.2) g/dL Globulin (2-4) g/dL Albumin/Globulin Ratio (1-3) TSH Blood Type O Positive Antibody Screen Negative 10/25/17 Range/Units 10:05 WBC (3.5-10.8) 10^3/ul RBC (4.0-5.4) 10^6/ul Hgb (12.0-16.0) g/dl Hct (35-47) % MCV (80-97) fL MCH (27-31) pg MCHC (31-36) g/dl RDW (10.5-15) % Plt Count (150-450) 10^3/ul MPV (7.4-10.4) um3 Neut % (Auto) Lymph % (Auto) Saunders % (Auto) Eos % (Auto) Baso % (Auto) Absolute Neuts (auto) Absolute Lymphs (auto) Absolute Monos (auto) Absolute Eos (auto) Absolute Basos (auto) Absolute Nucleated RBC Immature Gran % (0-9) % Neutrophils % (38-83) % Band Neutrophils % (0-8) % Lymphocytes % (25-47) % Monocytes % (0-7) % Eosinophils % (0-6) % Basophils % (0-2) % Nucleated RBC % Abs Neuts (Manual) (1.5-7.7) 10^3/ul Abs Lymphs (Manual) (1.0-4.8) 10^3/ul Abs Monocytes (Manual) (0-0.8) 10^3/ul Absolute Eos (Manual) (0-0.6) 10^3/ul Abs Basophils (Manual) (0-0.2) 10^3/ul Normal RBC Morphology Hypochromasia Microcytosis INR (Anticoag Therapy) (0.77-1.02) D-Dimer, Quantitative (Less Than 230) ng/mL ABG pH 7.32 L (7.35-7.45) ABG pCO2 61 H (35-45) mmHg ABG pO2 85 (80-100) mmHg ABG HCO3 28.2 (19-31) mmol/L ABG O2 Saturation 97.0 (95-98) % ABG Base Excess 4.3 H (-2.0-2.0) Sodium (139-145) mmol/L Potassium (3.5-5.0) mmol/L Chloride (101-111) mmol/L Carbon Dioxide (22-32) mmol/L Anion Gap (2-11) mmol/L BUN (6-24) mg/dL Creatinine (0.51-0.95) mg/dL Est GFR ( Amer) (>60) Est GFR (Non-Af Amer) (>60) BUN/Creatinine Ratio (8-20) Glucose (70-100) mg/dL Lactic Acid (0.5-2.0) mmol/L Calcium (8.6-10.3) mg/dL Phosphorus (2.5-5.0) mg/dL Magnesium (1.9-2.7) mg/dL Total Bilirubin (0.2-1.0) mg/dL AST (13-39) U/L ALT (7-52) U/L Alkaline Phosphatase (34-104) U/L Total Creatine Kinase Troponin I (<0.04) ng/mL C-Reactive Protein (< 5.00) mg/L B-Natriuretic Peptide ( - 100) pg/mL Total Protein (6.4-8.9) g/dL Albumin (3.2-5.2) g/dL Globulin (2-4) g/dL Albumin/Globulin Ratio (1-3) TSH Blood Type Antibody Screen Result Diagrams: 10/25/17 09:41 10/25/17 09:41 Lab Statement: Any lab studies that have been ordered have been reviewed, and results considered in the medical decision making process. - Radiology CXR Xray Interpretation: Positive (See Comments) - FINDINGS MOST CONSISTENT WITH CONGESTIVE HEART FAILURE. Dr. Faulkner has reviewed this report. Radiology Interpretation Completed By: Radiologist - CT Brain CT CT Interpretation: No Acute Changes - NO ACUTE INTRACRANIAL PATHOLOGY. CHRONIC SMALL VESSEL ISCHEMIC CHANGES. Dr. Faulkner has reviewed this report. CT Interpretation Completed By: Radiologist - EKG 0943 EKG Rhythm: Atrial Fibrillation - with RVR at 114 bpm Disposition - Course Course Of Treatment: MS. Robledo is obviously very sick. She has acute renal failure, is developing some CHF and is already a little hypercarbic. However, she is newly anemic, tchycardic and hypotensive and I have no choice other than to give some fluids at this time. Dr. Larry is admitting her to the ICU. - Diagnoses Provider Diagnoses: Stupor, CHF (congestive heart failure), Acute renal failure - Physician Notifications Discussed Care Of Patient With: Sonal Larry Time Discussed With Above Provider: 11:30 Instructed by Provider To: Admit As Inpatient - Critical Care Time Critical Care Time: 30-74 min Discharge - Sign-Out/Discharge Documenting (check all that apply): Discharge/Admit/Transfer - Discharge Plan Condition: Good Disposition: ADMITTED TO [facility] - Billing Disposition and Condition Condition: GOOD [place] [facility] [place] The documentation as recorded by the Parrish zapata Jennifer accurately reflects the service I personally performed and the decisions made by , Italo Faulkner MD.
--- NOTE | 2017-10-25 14:42 | RAD ---
HISTORY: Rule out medical renal disease COMPARISONS: CT dated June 01, 2017 TECHNIQUE: Multiple transverse and longitudinal ultrasound images were obtained of the kidneys using grayscale and color Doppler imaging. FINDINGS: RIGHT KIDNEY: The right kidney is normal in shape, size, contour, and echogenicity. There is no hydronephrosis or nephrolithiasis. The right kidney measures 12 x 4.6 x 4.7 cm. LEFT KIDNEY: The left kidney is normal in shape, size, contour, and echogenicity. There is no hydronephrosis or nephrolithiasis. The left kidney measures 11.7 x 5.1 x 5.4 cm. BLADDER: No images are submitted of the bladder. AORTA AND IVC: No images are submitted of the vasculature. RETROPERITONEUM: Unremarkable. OTHER: None. IMPRESSION: NO HYDRONEPHROSIS OR NEPHROLITHIASIS. THE RENAL ECHOTEXTURE IS NORMAL.
[2017-10-25 14:54] LABS: Hematocrit 27 % (35-47); Hemoglobin 8.6 g/dl (12.0-16.0); Mean Corpuscular HGB Conc 32 g/dl (31-36); Mean Corpuscular Hemoglobin 26 pg (27-31); Mean Corpuscular Volume 81 fL (80-97); Mean Platelet Volume 10.9 um3 (7.4-10.4); Platelet Count 133 10^3/ul (150-450); Red Blood Count 3.33 10^6/ul (4.0-5.4); Red Cell Distribution Width 19 % (10.5-15); White Blood Count 3.2 10^3/ul (3.5-10.8)
[2017-10-25 15:07] LABS: EGFR Non-African American 7.8 (>60)
[2017-10-25] MEDS ORDERED: Sodium Polystyrene ORAL.SOL* 15 GM/60 ML BTL PO ONE ×2 (15:07→16:00)
[2017-10-25] MEDS ORDERED: NS 0.9% 1000 ML* 1,000 ML IV SCH (15:45)
--- NOTE | 2017-10-25 15:56 | RAD ---
INDICATION: PICC placement. COMPARISON: Comparison is made with a prior chest x-ray study from approximately 5 hours earlier. TECHNIQUE: A portable view of the chest was obtained. FINDINGS: There is a transvenous cardiac pacemaker defibrillator. The heart is moderately enlarged and unchanged. There is a PICC present entering on the right side. The catheter tip projects over the right atrium. There is mild prominence of the interstitial markings which is improved from the prior study. IMPRESSION: 1. STATUS POST PICC PLACEMENT. 2. FINDINGS MOST CONSISTENT WITH CONGESTIVE HEART FAILURE, IMPROVED.
[2017-10-25] MEDS: Acetaminophen TAB* 325 MG PO PRN ×2 (15:57→21:27)
[2017-10-25] MEDS ORDERED: Norepinephrine 16MCG/ML IVPRE* 4,000 MCG/250 ML BAG IV ONE (17:06)
--- NOTE | 2017-10-25 17:24 | ECHO ---
Patient: MARYCHUY DELGADO [facility] Rec#: [id number] : 1955 Date: 10/25/2017 Age: 62y Height: 167.64 cm / 66.0 in Weight: 136.08 kg / 299.9 lbs Sex: F BSA: 2.38 Room#: ICU 5 Admit Date#: 10/25/2017 Type: Inpatient Referring: HARLEY HERNÁNDEZ Reading: Sal Ortiz MD Supervisor [employer]: Sia Brush,DYANACS,RDMS CC: Blake Stuart MD Transthoracic Echocardiogram Indication: SOB BP: 71/45 HR: 112 Rhythm: A-Fib Findings History: AFIB, CHF, ICD, COPD,HTN, HLD, FRANCIS, Mantle cell lymphoma, PEs Technical Comments: The study quality is fair. The study is technically limited due to patient being on BIPAP during study. Left Ventricle: The left ventricular chamber size is normal. There is no left ventricular hypertrophy. There is a prominent septal knuckle. There are multiple regional wall motion abnormalities. There is moderately decreased left ventricular systolic function. The estimated ejection fraction is 35-40%. There is no consistent Doppler evidence of clinically significant diastolic dysfunction. Left Atrium: The left atrium is moderately dilated. Right Ventricle: The right ventricle is mild to moderately dilated. The right ventricular global systolic function is severely reduced. A pacemaker wire is visualized in the right ventricle. Right Atrium: The right atrium is moderate to severely dilated. A pacemaker wire is visualized in the right atrium. Aortic Valve: There is no evidence of aortic valve thickening. Systolic excursion of the aortic valve is normal. There is no evidence of aortic regurgitation. There is no evidence of aortic stenosis. Mitral Valve: The mitral valve leaflets appear normal. There is a trace of mitral regurgitation. There is no evidence of mitral stenosis. Tricuspid Valve: The tricuspid valve leaflets are normal. There is mild to moderate tricuspid regurgitation. The right ventricular systolic pressure is estimated at 42 mmHg. There is evidence of moderate pulmonary hypertension. Pulmonic Valve: There is no evidence of pulmonic valve thickening. There is moderate pulmonic regurgitation. Pericardium: There is no significant pericardial effusion. Aorta: The ascending aorta is not well visualized. There is no dilatation of the aortic arch. The aortic root is normal in size. Pulmonary Artery: The main pulmonary artery is not well visualized. Venous: The inferior vena cava is dilated. There is less than 50% respiratory change in the inferior vena cava dimension. Summary: There are no significant changes when compared to the previous study done on 10/01/17 Conclusions There are multiple regional wall motion abnormalities. There is moderately decreased left ventricular systolic function. The estimated ejection fraction is 35-40%. There is a prominent septal knuckle. The right ventricular global systolic function is severely reduced. A pacemaker wire is visualized in the right ventricle. There is no evidence of aortic stenosis. There is a trace of mitral regurgitation. There is mild to moderate tricuspid regurgitation. The right ventricular systolic pressure is estimated at 42 mmHg. There is no significant pericardial effusion. The ascending aorta is not well visualized. Measurements Name Value Normal Range RVIDd (AP) 2D 4.3 cm (0.9 - 2.6) RVDdMajor (2D) 4 cm (2.2 - 4.4) RAd ISD 4CH 6.4 cm (3.4 - 4.9) RA (A4C)W 6 cm (2.9 - 4.6) IVSd (2D) 1.5 cm (0.6 - 1) LVPWd (2D) 1.1 cm (0.6 - 1) LVIDd (2D) 4.5 cm (3.6 - 5.4) LVIDs (2D) 3.1 cm - LV FS (2D) 31 % (25 - 45) Aortic Annulus 2 cm (1.4 - 2.6) Ao root diameter (2D) 2.7 cm (2.1 - 3.5) Aortic arch 2.9 cm (1.8 - 3.4) LA dimension (AP) 2D 5.6 cm (2.3 - 3.8) LAd ISD 4CH 6.9 cm (2.9 - 5.3) LA ISD 4CH W 4.6 cm (2.5 - 4.5) Name Value Normal Range LA ESV SP 4CH (A/L) 81.08 ml - LA ESV SP 2CH (A/L) 86.03 ml - LA ESV BP (A/L) 84.75 ml - LA ESV BP (A/L) index 36 ml/m2 - LA ESV SP 4CH (MOD) 75.38 ml - LA ESV SP 2CH (MOD) 81.78 ml - Name Value Normal Range MV E-wave Vmax 0.8 m/sec - MV deceleration time 155 msec - LV lateral e' Vmax 0.08 m/sec - LV E:e' lateral ratio 10 ratio - Name Value Normal Range AV Vmax 1.2 m/sec - AV peak gradient 6 mmHg - LVOT Vmax 1 m/sec - LVOT peak gradient 4 mmHg - LAVELL Vmax 0.7 m/sec - Name Value Normal Range TR Vmax 2.6 m/sec - TR peak gradient 27 mmHg - RAP 15 mmHg - RVSP 42 mmHg - IVC diameter 3.2 cm - Name Value Normal Range PV Vmax 0.6 m/sec - PV peak gradient 1.4 mmHg -
--- NOTE | 2017-10-25 18:31 | RAD ---
INDICATION: Expiratory distress. Rule out bleeding History of lymphoma. COMPARISON: CT chest/abdomen/pelvis June 01, 2017 TECHNIQUE: Noncontrast axial source images were obtained from the thoracic inlet to the symphysis pubis. The lack of oral and intravenous contrast limits diagnostic value. There is also motion artifact. Coronal and sagittal reconstructed images were acquired. CHEST FINDINGS: Neck/thyroid: Limited imaging of the thyroid shows the thyroid appears enlarged and heterogeneous. Chest wall: There are no acute abnormalities of the bony thorax or chest wall. There is a left-sided Vyxyix-l-Htyc catheter There is no supraclavicular, infraclavicular, or axillary lymphadenopathy. Lungs : There is consolidative change right lung base. There is mild interstitial change in the left lung base. Cardiomediastinal structures: There is no gross adenopathy. The cardiac silhouette is significantly enlarged. Pleura : There are no pleural-based masses or effusions. ABDOMINAL/PELVIC FINDINGS: Liver: Noncontrast imaging liver demonstrates hepatomegaly. No discrete lesions are seen. Gallbladder: There are no calcified gallstones. There is no evidence of wall thickening or pericholecystic fluid. Spleen: Noncontrast imaging the spleen shows no abnormalities. Pancreas: Noncontrast imaging the pancreas is unremarkable. Adrenal glands: There is no evidence of adrenal mass. Kidneys: There is no evidence of nephrolithiasis or mass on noncontrast imaging. There is no hydronephrosis. Adenopathy: No gross adenopathy. The lack of oral intravenous contrast would make it difficult to exclude lymphadenopathy in this patient with a history of lymphoma. Fluid collections: No significant free fluid collections. Vessels: No discernible aneurysm. Trace intimal calcifications GI tract: Limited evaluation without oral intravenous contrast. No obstruction. Moderate stool throughout the colon. Pelvic organs: Large calcified uterine leiomyoma. Prominent uterus. Bladder: The bladder is decompressed with Erazo catheter. Abdominal and pelvic soft tissues: The extraperitoneal abdominal and pelvic soft tissues appear normal.. Osseous structures: There are no acute osseous findings. IMPRESSION: 1. Limited noncontrast examination was performed. 2. Consolidative changes right lung base with small right-sided effusion. Minor interstitial changes left lung base. 3. Cardiomegaly. 4. Mild hepatomegaly. 5. Fibroid uterus.
--- NOTE | 2017-10-25 19:26 | CONS ---
NEPHROLOGY CONSULTATION: DATE OF CONSULT: 10/25/17 REASON FOR CONSULT: Acute on chronic renal insufficiency. HISTORY OF PRESENT ILLNESS: Ms. Robledo is a 62-year-old female with a complex medical history, who presented because of decreased mental acuity and shortness of breath. She is unable to give me a history and she barely arouses to stimulation. I have taken the history from my discussion with Dr. Larry and from the previous record. She was recently discharged from the hospital after a hospitalization for shortness of breath. PAST MEDICAL HISTORY: She has a history of COPD probably because of restrictive airway disease. She has a history of congestive heart failure, which was recently exacerbated. She has a history of atrial fibrillation and mantle cell lymphoma. She has known chronic renal insufficiency. She has a history of hypertension and hyperlipidemia. She has been treated with BiPAP in the past but she does not use it. PAST SURGICAL HISTORY: Her only previous surgical history is an AICD. MEDICATIONS AT DISCHARGE: Included: 1. Seroquel 800 mg at bedtime. 2. Warfarin 15 mg every other day. 3. Aldactone 50 mg daily. 4. Warfarin 10 mg every other day. 5. Imbruvica 560 mg daily. 6. [place] 1 t.i.d. 7. Diltiazem 180 mg daily. 8. Flexeril 10 mg t.i.d. 9. Trazodone 100 mg at bedtime. 10. Tramadol 50 mg every 6 hours p.r.n. 11. Oxycodone 5 mg every 6 hours. 12. Demadex 20 mg b.i.d. 13. Spiriva 1 capsule inhaled daily. 14. Potassium 20 mEq daily. 15. Nicotine 14 mg transdermal daily with a nicotine inhaler 10 mg every 2 hours p.r.n. 16. Multivitamins 1 daily. 17. Lisinopril 20 mg daily. 18. Colace 100 mg b.i.d. 19. Coreg 50 mg b.i.d. 20. Symbicort 1 puff b.i.d. 21. Lipitor 20 mg daily. 22. Albuterol metered dose inhaler 2 puffs every 4 hours p.r.n. 23. Xanax 0.5 mg daily. ALLERGIES: She is allergic to ASPIRIN. FAMILY HISTORY: Apparently, her father of lung cancer. SOCIAL HISTORY: She continues to smoke. She was recently in [facility]term [facility]. REVIEW OF SYSTEMS: I am unable to obtain review of systems. PHYSICAL EXAM: She is an obese, -Malaysian female who only moans to stimulation. Her weight is 127 kg. Her blood pressure is 92/67, she has been as low as 71 systolic; heart rate is 101; respiratory rate 16 and she does not appear to be moving much air at all; however, her O2 saturation is 100%, but she is receiving oxygen. She is anicteric. Her extraocular muscles are intact. Her mucous membranes are dry. She has a positive skin tenting. Her neck is very thick. I cannot see her neck veins. The chest reveals very distant breath sounds. I can barely hear them. The abdomen is markedly obese. Bowel sounds are positive. She has ecchymosis everywhere. She looks as if she has had significant trauma, although her INR is elevated, so she just may be spontaneously bleeding into tissues. There is no edema. DIAGNOSTIC STUDIES/LAB DATA: A review of her laboratory values reveals a sodium of 140, potassium 6.5, total CO2 is 31, chloride 101, BUN 113 that is typically down in the 50 range, creatinine of 5.33 that is typically down in the 1.2 range, glucose 96, calcium 9.1. Urinalysis has not been obtained at the present time. White count is 3.5 with a hemoglobin of 9 and that is typically around 12, platelet count is 137,000. pH is 7.32, PCO2 is 31 and that is actually better than she was in August of this year, PO2 of 85. IMPRESSION: 1. Acute renal insufficiency superimposed on chronic renal insufficiency. I think this is most likely due to her prerenal state with dehydration. 2. Hyperkalemia secondary to #1. 3. Relative metabolic acidosis. Her total CO2 typically is in the upper 30 range as compensation for her chronic CO2 retention. PLAN: At the present time, I would hydrate her. I would see if we could get some Kayexalate into her in order to help out with the hyperkalemia. There is a question about the potential need for ventilation. Dr. Larry apparently talked with her about this when she was a little more lucid and she refused intubation. There is an attempted nasal BiPAP at present. When a urine is obtained, we should see urine sodium and creatinine in order to calculate a fractional excretion of sodium. I would check a total CK and phosphorous and magnesium. I have discussed the case with Dr. Larry. [id number]/[facility] #: [id number] [facility] HOSPITALRei
[2017-10-25] MEDS: fentaNYL* 50 MCG/ML 2 ML VIAL (100 MCG VIAL) IV PRN (19:33)
[2017-10-25] MEDS ORDERED: Acetaminophen SUPP* 650 MG SUPP PR PRN (19:53)
--- NOTE | 2017-10-25 19:59 | HP ---
HISTORY AND PHYSICAL: DATE OF ADMISSION: 10/25/17 PRIMARY CARE PHYSICIAN: Dr. Stuart. CHIEF COMPLAINT: Altered mental status. HISTORY OF PRESENT ILLNESS: The patient is a 62-year-old female with multiple comorbidities including history of CHF, COPD, continues to smoke, who was brought into the ED this morning from [facility] for lethargy, hypotension, and respiratory distress. The patient woke up to verbal stimuli while in the emergency room, and mental status has been fluctuating. As [facility], she has been hypoxemic with O2 sats in 80s despite using O2 supplementation and also being on CPAP for a known history of sleep apnea. No h/ o fevers or chills. She had fall in NH the morning of admission. She was given neb treatments and placed on nonrebreather en route. Saturations have remained above 90% through ED course. She, however, was on O2 supplementation. Blood glucose was 100. The patient had further evaluation with chest x-ray and CT scan of the chest. I have personally reviewed chest x-ray and CT images. The patient noted to have airspace opacities bilaterally, small pleural effusions, prominence of interstitium consistent with fluid overload. The patient's CT brain did not reveal any acute pathology. EKG showed atrial fibrillation with no acute ST-T wave changes. Labs showed a drop in hemoglobin from her baseline of 12 that was few days ago to 9.0. The patient also noted to have elevated INR at 5.64, D-dimer was less than 200. Blood gas analysis did reveal respiratory acidosis with pH of 7.32, PCO2 of 61, PO2 of 85 with bicarb of 28, and sats of 97%. Laboratory evaluation also revealed evidence of hyperkalemia with no T-wave changes. Acute on chronic renal failure with significantly elevated BUN and creatinine. Lactic acid was 0.8, within normal limits. Troponin was mildly elevated at 0.04. CRP was also elevated. BNP was 116. UA showed mildly positive leukocyte esterase and wbc's. Influenza A and B was negative. The patient continues to be tachycardic and hypotensive in the ED. IV fluids were initially started when she came in, however, were stopped after chest x-ray finding of congestion. The patient continued to have fluctuating mental status changes. At one point, she was only responsive to painful stimuli with sternal rub. The patient subsequently improved after BiPAP was initiated and was able to communicate. The patient has declined intubation. She is currently being stabilized on BiPAP. The patient was admitted to intensive care unit for acute hypoxemic and hypercapnic respiratory failure, altered mental status. PAST MEDICAL HISTORY: 1. Bilateral PEs. 2. Atrial fibrillation, on Coumadin. 3. Mantle cell lymphoma. 4. CKD. 5. CHF with systolic and diastolic heart failure, last echo in June of 2017 showed EF of 35% to 40%, which is improved from prior EF of 20%. 6. Anemia. 7. FRANCIS, nonadherent to CPAP. 8. COPD. 9. Tobacco abuse history. 10. Hypertension. 11. Hyperlipidemia. PAST SURGICAL HISTORY: AICD placement. MEDICATIONS: 1. Seroquel 800 mg p.o. at bedtime. 2. Prednisone 30 mg. 3. Tylenol 650 q.4 hours p.r.n. 4. Atorvastatin. 5. Trazodone 100 mg p.o. at bedtime. 6. Oxycodone 5 mg q.6 hours p.r.n. 7. Coumadin 10 and 15 mg alternatively. 8. Torsemide 20 mg p.o. b.i.d. 9. Spiriva 1 capsule inhalation daily. 10. Spironolactone 50 mg p.o. daily. 11. Potassium chloride 20 mEq daily. 12. Polyethylene glycol 17 g p.o. daily p.r.n. for constipation. 13. Nicotine patch 14 mg transdermally. 14. Dulera 2 puffs b.i.d., 200/5. 15. Lisinopril 20 mg p.o. daily. 16. Robitussin 10 mL p.o. q.4 hours. 17. Gabapentin 200 mg p.o. t.i.d. 18. Docusate 100 mg p.o. b.i.d. 19. Diltiazem 180 mg p.o. daily. 20. Flexeril 10 mg p.o. t.i.d. p.r.n. 21. Carvedilol 50 mg p.o. b.i.d. 22. Tums 500 mg p.o. b.i.d. p.r.n. 23. Albuterol 2.5 mg q.4 hours p.r.n. 24. Xanax 0.5 mg p.o. t.i.d. ALLERGIES: ASPIRIN. FAMILY HISTORY: Mother alive at age 89. Father has lung cancer. SOCIAL HISTORY: Smoker, was discharged on nicotine supplementation after recent hospitalization. Smokes about half a pack a day since her teenage years. Drinks rarely. No drug abuse. Her decision maker is her , Dieudonne Robledo. REVIEW OF SYSTEMS: Unable to obtain secondary to altered mental status. PHYSICAL EXAMINATION GENERAL: The patient is a morbidly obese, female, lethargic, in no apparent distress. VITAL SIGNS: Temperature 97.1, pulse 108 beats per minute, respiratory rate 22 per minute, O2 sat 91% on 40% FiO2, blood pressure 81/61. HEENT: Pupils equal and reactive to light. Mucous membranes moist, Mallampati class IV airway. LYMPHATIC: No palpable cervical or supraclavicular adenopathy. LUNGS: Diminished air entry bilaterally, rhonchi and wheeze present, crackles at the bases. CARDIOVASCULAR: S1 and S2 present, regular. ABDOMEN: Obese. Bowel sounds present. Nontender, nondistended. EXTREMITIES: Pitting edema bilaterally, right lower extremity is more swollen compared to the left, has tenderness to palpation of right lower extremity. NEUROLOGIC: Neurological status has been waxing and waning, was able to move extremities to verbal stimuli and was able to have good hand carrier operator in upper extremities. SKIN: The patient with bruises in right upper and lower extremities, also bruises noted on her chest and in the scapular area on the right side. The patient with evidence of insect bite and clearing rash on the right upper extremity. DIAGNOSTIC STUDIES/LAB DATA: WBC count 3.5 decreased from her prior count of 5.4, hemoglobin dropped to 9.0 from 12 two weeks ago, hematocrit 28, normal MCV , elevated RDW, platelet count 137. Has history of thrombocytopenia. Absolute neutrophil count is decreased at 700. INR 5.64, INR was 2.19 on 10/19/17. Blood gas analysis showed respiratory acidosis with PCO2 of 61, pH of 7.32, PO2 of 85, bicarb 28 with O2 sat 97%. Sodium 140, potassium 6.5, chloride 101, bicarb 31, anion gap was 8, BUN 113 significantly increased from 2 weeks ago when it was 52, creatinine is 5.33 significantly increased from 2 weeks ago at 1.18, lactic acid within normal limits, calcium 9.1, phosphorus elevated at 6.8 , magnesium within normal limits. T-bili 0.5. Troponin elevated at 0.04, the repeat is pending. CRP elevated at 168. BNP elevated at 116. Total protein 6.2. UA showed trace leukocyte esterase and trace wbc. Influenza A and B negative. Chest x-ray was personally reviewed and as described above in HPI. CT brain was reviewed and as per HPI. ASSESSMENT AND PLAN: 1. Neuro: The patient with altered mental status, likely metabolic given acute on chronic renal failure and hypercapnic respiratory failure likely from COPD and CHF. No evidence of significant acidosis at this time. The patient has been having waxing and waning mental status since admission. She has been on narcotic medications, which are being held currently. The patient is able to protect her airway currently and is not in need of intubation. She has been responsive to verbal stimuli. We will monitor closely and might consider intubation for any change in mental status. 2. Respiratory: History of chronic obstructive pulmonary disease and congestive heart failure with acute congestive heart failure exacerbation and possibly chronic obstructive pulmonary disease exacerbation. The patient is receiving bronchodilators. She is needing O2 supplementation at 40% FiO2. Has been on BiPAP for acute hypercapnic respiratory failure. Will repeat the blood gas in 1 hr while on BiPAP. Have low threshold for intubation. The patient when she was more alert has declined intubation. Will reevaluate. For now, continue with BiPAP. No concern for PE given suprathereupeutic INR. 3. Cardiovascular: The patient with history of systolic and diastolic congestive heart failure, atrial fibrillation, tachycardic, not in atrial fibrillation currently. She has automatic implantable cardioverter- defibrillator placement in the past. Will order echocardiogram to evaluate the change in ejection fraction given hypotension. Hypotension likely from acute blood loss. The patient is hypercoagulable and has lot of bruises, might have bled internally. Could not give her IV fluids secondary to history of congestive heart failure and evidence of pulmonary vascular congestion noted on chest x-ray. Might need pressors. Will have PICC line placement. Elevated troponins and elevated BNP. Will trend troponins. No acute ST-T wave changes noted on EKG. Unable to diurese at this time, will probably give Lasix after transfusion. 4. Renal: The patient with acute on chronic renal failure of unclear etiology , medication induced versus secondary to hypotension from internal bleed and anemia. Renal consultation was requested. Erazo placed for monitoring of renal status. Kidney ultrasound was also ordered. 5. Hematological: The patient with history of mantle cell lymphoma, chronic anemia with acute blood loss secondary to high INR. The patient is hypotensive , fluid overloaded, but might need 1 unit of PRBC. Will repeat H and H prior to transfusion and assess need. Monitor H and H closely. Coumadin has been stopped. The patient has chronic thrombocytopenia, stable. Also, with neutropenia currently, will rpt CBC. 6. Endocrine: No history of hypothyroidism or diabetes. Blood sugar is normal. 7. Musculoskeletal: Significantly swollen lower extremity, bruised upper and lower extremities and also with hematomas in the back with hypercoagulable state. No history of falls. Supportive preventive care as ordered. Venodynes for now. D- dimer is within normal limits, no concern for pulmonary embolism or deep venous thrombosis at this time. We will avoid heparin. 8. ID: No obvious signs or source of sepsis at this time. Lactate is normal. Will monitor neutropenia and will initiate antibiotics if indicated. The patient is critically ill and is in the ICU. I tried to contact , could not reach him, left voicemail. TIME SPENT: Total critical care time of 60 minutes excluding procedures if any. [id number]/[facility] #: [id number] [facility]
[2017-10-25] MEDS ORDERED: Vancomycin(*) 1,000 MG in NS 0.9% 250 ML* 250 ML IVPB ONE (20:00)
[2017-10-25] MEDS ORDERED: Vancomycin per Pharmacy* NOTE FOLLOW UP PRN (20:09)
--- NOTE | 2017-10-25 20:23 | RAD ---
INDICATION: Short of breath COMPARISON: October 25, 2017 TECHNIQUE: An AP portable view obtained at 2008 hours is submitted. FINDINGS: Bones/Soft Tissues: There are no acute bony findings. There is a left-sided cardiac pacemaker/defibrillator Cardiomediastinal: The correct silhouette is enlarged with interval increase in size. Lungs: Rest of interstitial and alveolar change consistent with interstitial and alveolar edema. Pleura: Suspect a small bilateral pleural effusions. Other: None IMPRESSION: VASCULAR CONGESTION WITH INTERVAL WORSENING
[2017-10-25] MEDS: Cefepime 1 GM in Dextrose(*) 1 GM/50 ML BAG IV SCH (20:37)
[2017-10-25 21:40] LABS: Urine Appearance Clear; Urine Blood 3+ (Negative); Urine Color Yellow; Urine Ketones Negative (Negative); Urine Protein Negative (Negative); Urine Urobilinogen Negative (Negative)
[2017-10-25] MEDS: Nicotine Patch Removal NOTE PATCH OFF SCH (21:51)
[2017-10-26] MEDS: Norepinephrine 16MCG/ML IVPRE* 4,000 MCG/250 ML BAG IV SCH ×3 (02:29→21:49)
[2017-10-26] MEDS ORDERED: Vancomycin Random Level* NOTE FOLLOW UP ONE (06:00)
[2017-10-26] MEDS: fentaNYL* 50 MCG/ML 2 ML VIAL (100 MCG VIAL) IV PRN ×2 (06:01→09:30)
[2017-10-26] MEDS: Acetaminophen TAB* 325 MG PO PRN ×2 (06:02→15:18)
[2017-10-26 06:35] LABS: ABS Basophils 0 10^3/ul (0-0.2); ABS Eosinophils 0.1 10^3/ul (0-0.6); ABS Lymphocytes 0.6 10^3/ul (1.0-4.8); ABS Monocytes 0.5 10^3/ul (0-0.8); ABS Neutrophils 3.2 10^3/ul (1.5-7.7); ABS Nucleated RBC 0.1 10^3/ul; Eosinophil % 1.1 % (0-6); Hematocrit 24 % (35-47); Hemoglobin 7.9 g/dl (12.0-16.0); Lymphocyte % 12.8 % (25-47); Mean Corpuscular HGB Conc 33 g/dl (31-36); Mean Corpuscular Hemoglobin 26 pg (27-31); Mean Corpuscular Volume 80 fL (80-97); Mean Platelet Volume 11.2 um3 (7.4-10.4); Nucleated Red Blood Cells % 2.4; Platelet Count 110 10^3/ul (150-450); Red Cell Distribution Width 19 % (10.5-15); White Blood Count 4.4 10^3/ul (3.5-10.8)
[2017-10-26 06:38] LABS: INR 4.74 (0.77-1.02)
[2017-10-26 06:44] LABS: EGFR Non-African American 12.6 (>60)
[2017-10-26] MEDS ORDERED: Vancomycin(*) 1,500 MG in NS 0.9% 250 ML* 250 ML IVPB ONE (09:00)
--- NOTE | 2017-10-26 10:56 | PN ---
Progress Note - Progress Note Date of Service: 10/26/17 Note: Progress Note Critical Care 24 hour events/significant events: -febrile 101.8 overnight -on levophed -on NIV overnight; now on NC 5 L, no resp distress -awake/alert, oriented; chronic back pain+; thirsty and hungry+ -no sputum prod/diarrhea/cough/abd pain/chest pain Tele: afib Vitals: Vital Signs Temp 100.4 F 10/26/17 08:15 Pulse 108 10/26/17 08:15 Resp 29 10/26/17 09:30 BP 96/53 10/26/17 08:15 Pulse Ox 98 10/26/17 08:15 Intake & Output 10/25/17 10/26/17 10/26/17 18:59 06:59 18:59 Intake Total 1150 1445.7 Output Total 1295 1495 326 Balance -145 -49.3 -326 Weight 147 lb 14.4 oz 326 lb 1.019 oz Intake: IV Fluids 1000 1010 ABX - CEFEPIME 60 ABX - VANCOMYCIN 260 NS (0.9%) 690 Medicated IV 385.7 CC - Norepinephrine/ 385.7 Levophed Oral 150 50 Output: Urine 50 Erazo 1245 1495 326 O2/Vent: 5L NC, sat 93% Infusions: NS, levophed 10mcg/min Medications: Acetaminophen (Tylenol Tab*) 650 mg PO Q4H PRN PRN Reason: FEVER/PAIN Last Admin: 10/26/17 06:02 Dose: 650 mg Acetaminophen (Tylenol Supp*) 650 mg FL Q4H PRN PRN Reason: FEVER/PAIN Albuterol (Ventolin 2.5 Mg/3 Ml Neb.Lois*) 2.5 mg INH Q4H PRN PRN Reason: SOB/WHEEZING Famotidine (Pepcid Tab*) 20 mg PO DAILY LIYAH Fentanyl Citrate (Fentanyl*) 25 mcg IV Q4H PRN PRN Reason: PAIN - MODERATE Last Admin: 10/26/17 09:30 Dose: 25 mcg Heparin Sodium (Porcine) (Heparin Flush Picc/Ml/Cvc(*)) 1 - 3 ml FLUSH 0600, 1800 LIYAH PRN Reason: Protocol Last Admin: 10/26/17 06:02 Dose: 1 ml Hydromorphone HCl (Dilaudid Inj*) 1 mg IV SLOW PU Q4H PRN PRN Reason: PAIN - MODERATE TO SEVERE Norepinephrine Bitartrate (Levophed 16 Mcg/Ml Premix Bag*) 4,000 mcg in 250 mls @ 7.5 mls/hr IV .INITIAL RATE LIYAH; 2 MCG/MIN PRN Reason: Protocol Last Admin: 10/26/17 09:26 Dose: 37.5 mls/hr Cefepime HCl (Maxipime 1 Gm In Dextrose Duplex (*)) 1 gm in 50 mls @ 100 mls/ hr IV Q24H [facility] Last Admin: 10/25/17 20:37 Dose: 100 mls/hr Lactated Ringer's (Lactated Ringers 1000 Ml Bag*) 1,000 mls @ 100 mls/hr IV PER RATE LIYAH Lactated Ringer's (Lactated Ringers 500 Ml Bag*) 500 mls @ 250 mls/hr IV ONCE ONE Stop: 10/26/17 12:08 Nicotine (Nicotine Patch 14 Mg/24 Hr*) 1 patch TRANSDERM DAILY PRN PRN Reason: CRAVINGS Pharmacy Consult (Vancomycin Per Pharmacy*) 1 note FOLLOW UP . PRN PRN Reason: PER PROTOCOL Pharmacy Consult (Vancomycin Random Level*) 1 note FOLLOW UP 0600 [facility] Pharmacy Profile Note (Nicotine Patch Removal Note*) 1 note PATCH OFF 2100 [facility] Last Admin: 10/25/17 21:51 Dose: Not Given Physical Exam: General: obese, awake, alert, no distress, no diaphoresis Head: normocephalic, atraumatic HEENT: + pallor, no icterus, moist mucous membranes Neck: soft, supple, no jvd, no stridor CVS: tachy, irreg, no murmur Resp: bilateral air entry, right basal rhales+, no wheeze, no rhonchi, no acc muscle use Abdomen: soft, nontender, nondistended, bowel sounds present Ext: pulses+, warm, no edema Skin: intact, areas of diffuse ecchymosis on Lower and upper ext noted on admission Neuro: awake, alert, orientedx3, moving all extremities, no gross focal deficit Labs: Laboratory Results - last 24 hr 10/25/17 10/25/17 10/25/17 09:41 09:41 09:41 WBC 3.5 RBC 3.49 L Hgb 9.0 L Hct 28 L MCV 81 MCH 26 L MCHC 32 RDW 20 H Plt Count 137 L MPV 11.5 H Neut % (Auto) Lymph % (Auto) [place] % (Auto) Eos % (Auto) Baso % (Auto) Absolute Neuts (auto) Absolute Lymphs (auto) Absolute Monos (auto) Absolute Eos (auto) Absolute Basos (auto) Absolute Nucleated RBC Immature Gran % 2 Neutrophils % 21 L Band Neutrophils % 2 Lymphocytes % 58 H Monocytes % 17 H Eosinophils % 0 Basophils % 2 Nucleated RBC % Abs Neuts (Manual) 0.7 L* Abs Lymphs (Manual) 2.0 Abs Monocytes (Manual) 0.6 Absolute Eos (Manual) 0 Abs Basophils (Manual) 0.1 Hypochromasia 1+ Microcytosis 1+ INR (Anticoag Therapy) Patient Temperature ABG pH ABG pH (Temp Correct) ABG pCO2 ABG pCO2 (Temp Corrct ABG pO2 ABG pO2 (Temp Correct ABG HCO3 ABG O2 Saturation ABG Base Excess Respiration Rate O2 Delivery Device Ventilator Type Vent Mode FiO2 Inspiratory Time PEEP Pressure Support Pressure Control EPAP IPAP BiPAP Sodium 140 Potassium 6.5 H* Chloride 101 Carbon Dioxide 31 Anion Gap 8 BUN 113 H Creatinine 5.33 H Est GFR ( Amer) 10.5 Est GFR (Non-Af Amer) 8.1 BUN/Creatinine Ratio 21.2 H Glucose 96 Calcium 9.1 Phosphorus 6.8 H Magnesium 2.3 Total Bilirubin 0.50 AST 35 ALT 25 Alkaline Phosphatase 46 Total Creatine Kinase 1003 H Troponin I 0.04 H* C-Reactive Protein 168.67 H Total Protein 6.2 L Albumin 3.3 Globulin 2.9 Albumin/Globulin Ratio 1.1 TSH 2.49 Urine Color Urine Appearance Urine pH Ur Specific [place] Urine Protein Urine Ketones Urine Blood Urine Nitrate Urine Bilirubin Urine Urobilinogen Ur Leukocyte Esterase Urine WBC (Auto) Urine RBC (Auto) Ur Squamous Epith Cells Urine Bacteria Hyaline Casts Ur Random Creatinine Ur Random Sodium Renal Sodium Excretion Urine Glucose Random Vancomycin Blood Type O Positive Antibody Screen Negative Crossmatch See Detail 10/25/17 10/25/17 10/25/17 10:05 12:30 14:15 WBC RBC Hgb Hct MCV MCH MCHC RDW Plt Count MPV Neut % (Auto) Lymph % (Auto) [place] % (Auto) Eos % (Auto) Baso % (Auto) Absolute Neuts (auto) Absolute Lymphs (auto) Absolute Monos (auto) Absolute Eos (auto) Absolute Basos (auto) Absolute Nucleated RBC Immature Gran % Neutrophils % Band Neutrophils % Lymphocytes % Monocytes % Eosinophils % Basophils % Nucleated RBC % Abs Neuts (Manual) Abs Lymphs (Manual) Abs Monocytes (Manual) Absolute Eos (Manual) Abs Basophils (Manual) Hypochromasia Microcytosis INR (Anticoag Therapy) Patient Temperature Not Reportable ABG pH 7.33 L ABG pH (Temp Correct) Not Reportable ABG pCO2 58 H ABG pCO2 (Temp Corrct Not Reportable ABG pO2 62 L ABG pO2 (Temp Correct Not Reportable ABG HCO3 27.8 ABG O2 Saturation 92.4 L ABG Base Excess 3.8 H Respiration Rate Not Reportable O2 Delivery Device bipap Ventilator Type Not Reportable Vent Mode Not Reportable FiO2 40 Inspiratory Time Not Reportable PEEP Not Reportable Pressure Support Not Reportable Pressure Control Not Reportable EPAP 8 IPAP 14 BiPAP Not Reportable Sodium Potassium Chloride Carbon Dioxide Anion Gap BUN Creatinine Est GFR ( Amer) Est GFR (Non-Af Amer) BUN/Creatinine Ratio Glucose Calcium Phosphorus Magnesium Total Bilirubin AST ALT Alkaline Phosphatase Total Creatine Kinase Troponin I C-Reactive Protein Total Protein Albumin Globulin Albumin/Globulin Ratio TSH Urine Color Yellow Urine Appearance Clear Urine pH 5.0 Ur Specific [place] 1.010 Urine Protein Negative Urine Ketones Negative Urine Blood 3+ A Urine Nitrate Negative Urine Bilirubin Negative Urine Urobilinogen Negative Ur Leukocyte Esterase Negative Urine WBC (Auto) 2+(11-20/hpf) A Urine RBC (Auto) 3+(>10/hpf) A Ur Squamous Epith Cells Present A Urine Bacteria Absent Hyaline Casts Present A Ur Random Creatinine 84.78 Ur Random Sodium 62 Renal Sodium Excretion Urine Glucose Negative Random Vancomycin Blood Type Antibody Screen Crossmatch 10/25/17 10/25/17 10/25/17 14:37 14:37 14:37 WBC 3.2 L RBC 3.33 L Hgb 8.6 L Hct 27 L MCV 81 MCH 26 L MCHC 32 RDW 19 H Plt Count 133 L MPV 10.9 H Neut % (Auto) Not Reportable Lymph % (Auto) Not Reportable [place] % (Auto) Not Reportable Eos % (Auto) Not Reportable Baso % (Auto) Not Reportable Absolute Neuts (auto) Not Reportable Absolute Lymphs (auto) Not Reportable Absolute Monos (auto) Not Reportable Absolute Eos (auto) Not Reportable Absolute Basos (auto) Not Reportable Absolute Nucleated RBC Not Reportable Immature Gran % Neutrophils % Band Neutrophils % Lymphocytes % Monocytes % Eosinophils % Basophils % Nucleated RBC % Not Reportable Abs Neuts (Manual) Abs Lymphs (Manual) Abs Monocytes (Manual) Absolute Eos (Manual) Abs Basophils (Manual) Hypochromasia Microcytosis INR (Anticoag Therapy) Patient Temperature ABG pH ABG pH (Temp Correct) ABG pCO2 ABG pCO2 (Temp Corrct ABG pO2 ABG pO2 (Temp Correct ABG HCO3 ABG O2 Saturation ABG Base Excess Respiration Rate O2 Delivery Device Ventilator Type Vent Mode FiO2 Inspiratory Time PEEP Pressure Support Pressure Control EPAP IPAP BiPAP Sodium 140 140 Potassium 5.4 H Chloride 101 Carbon Dioxide 28 Anion Gap 11 BUN 109 H Creatinine 5.54 H 5.54 H Est GFR ( Amer) 10.0 Est GFR (Non-Af Amer) 7.8 BUN/Creatinine Ratio 19.7 Glucose 97 Calcium 8.6 Phosphorus Magnesium Total Bilirubin 0.40 AST 32 ALT 20 Alkaline Phosphatase 38 Total Creatine Kinase 888 H Troponin I 0.04 H* C-Reactive Protein Total Protein 5.8 L Albumin 3.1 L Globulin 2.7 Albumin/Globulin Ratio 1.1 TSH Urine Color Urine Appearance Urine pH Ur Specific [place] Urine Protein Urine Ketones Urine Blood Urine Nitrate Urine Bilirubin Urine Urobilinogen Ur Leukocyte Esterase Urine WBC (Auto) Urine RBC (Auto) Ur Squamous Epith Cells Urine Bacteria Hyaline Casts Ur Random Creatinine 83.28 Ur Random Sodium 62 Renal Sodium Excretion 2.94 Urine Glucose Random Vancomycin Blood Type Antibody Screen Crossmatch 10/26/17 10/26/17 10/26/17 06:10 06:10 06:10 WBC 4.4 RBC 3.00 L Hgb 7.9 L Hct 24 L MCV 80 MCH 26 L MCHC 33 RDW 19 H Plt Count 110 L MPV 11.2 H Neut % (Auto) 72.8 Lymph % (Auto) 12.[address] [place] % (Auto) 12.4 H Eos % (Auto) 1.1 Baso % (Auto) 0.9 Absolute Neuts (auto) 3.2 Absolute Lymphs (auto) 0.6 L Absolute Monos (auto) 0.5 Absolute Eos (auto) 0.1 Absolute Basos (auto) 0 Absolute Nucleated RBC 0.1 Immature Gran % Neutrophils % Band Neutrophils % Lymphocytes % Monocytes % Eosinophils % Basophils % Nucleated RBC % 2.4 Abs Neuts (Manual) Abs Lymphs (Manual) Abs Monocytes (Manual) Absolute Eos (Manual) Abs Basophils (Manual) Hypochromasia Microcytosis INR (Anticoag Therapy) 4.74 H Patient Temperature ABG pH ABG pH (Temp Correct) ABG pCO2 ABG pCO2 (Temp Corrct ABG pO2 ABG pO2 (Temp Correct ABG HCO3 ABG O2 Saturation ABG Base Excess Respiration Rate O2 Delivery Device Ventilator Type Vent Mode FiO2 Inspiratory Time PEEP Pressure Support Pressure Control EPAP IPAP BiPAP Sodium 142 Potassium 4.3 Chloride 110 Carbon Dioxide 25 Anion Gap 7 BUN 91 H Creatinine 3.65 H Est GFR ( Amer) 16.2 Est GFR (Non-Af Amer) 12.6 BUN/Creatinine Ratio 24.9 H Glucose 100 Calcium 7.5 L Phosphorus Magnesium Total Bilirubin AST ALT Alkaline Phosphatase Total Creatine Kinase Troponin I C-Reactive Protein Total Protein Albumin Globulin Albumin/Globulin Ratio TSH Urine Color Urine Appearance Urine pH Ur Specific [place] Urine Protein Urine Ketones Urine Blood Urine Nitrate Urine Bilirubin Urine Urobilinogen Ur Leukocyte Esterase Urine WBC (Auto) Urine RBC (Auto) Ur Squamous Epith Cells Urine Bacteria Hyaline Casts Ur Random Creatinine Ur Random Sodium Renal Sodium Excretion Urine Glucose Random Vancomycin 9.1 Blood Type Antibody Screen Crossmatch Imagin/14 renal USG no obstruction/hydro CT abd/pelvis/chest Right lower lobe consolidation+ CXR 10/25 mild congestion+; right lower lobe consolidation+ CT brain 10/25 no acute process Assessment: 68y F pmhx Obesity, Afib, Mod LV systolic dysfunction with RV systolic dysfunction, s/p AICD, COPD on home O2, h/o PE, CKD, active smoker, h/ o mantle cell lymphoma, FRANCIS on CPAP, HTN, HLD; Comes to ER for lethargy, respiratory distress/hypoxia. Found to have drop in Hg and acute on chronic hypoxic/hypercapneic respiratory failure. -Acute on chronic hypercapneic and hypoxic respiratory failure -metabolic encephelopathy -acute blood loss anemia -coagulopathy -neutropenia -GEORGE on CKD -Afib -Sepsis -Septic Shock -right lower lobe pneumonia -Chronic compensated LV systolic dysfunction Plan: Neuro- encephalopathy improved, alert/awake. Likely from prior hypercapnea +/- sepsis component from pneumonia. Delirium prec. NIV at night should prevent relapse. Careful admin of bdz/narcotics. Asp prec. CVS- shock, suspected sepsis, source pneumonia. On levophed. Euvolemic status, no peripheral edema, not much congestion on imaging. Cont IVF, change to LR instead of NS. Cont IV abx. Wean pressors to keep sbp>90/MAP>65. Check procal/ lactic acid. Send blood cultures. Afib not well controlled at this time; no BB/ CCB; start amio infusion. INR 4, trending down. Keep hg>7-8; currently 7.9, no transfusion for now. Resp- on NC, tolerating well, no distress, alert. Cont to wean NC. NIV at night. IV abx for RLL pneumonia as demonstrated on CT chest. Sputum cultures. Bronchodilators PRN. No wheezing. ID- febrile+ 101.8. WBC 4, neutropenia resolved. RLL consolidation+ on CT chest. Sputum cultures if able. Send blood cultures now. Cont IV Cefepime/Vanco for HCAP coverage. Send influenza swab. Vanco dosing as per pharmacy. GI- start cardiac diet po. GI prophylaxis. Renal- GEORGE on CKD; suspect due to septic ATN + pre-renal + hypotension/ hypoperfusion. Change NS to LR 100cc/hr. Cr improving. Good urine output. Balanced i/o. K okay. No acidosis. Erazo+ Heme- anemia; hg 7.9, will monitor for now. INR 4.7, trending down; no active bleeding it seems now. Holding FFP/Vit K for now. Mild thrombocytopenia. Neutropenia resolved, ANC 3k+. Check hg at 4pm. Endo- fingerstick as needed. TSH normal limit. Musculsk- back pain chronic; doesnt like oxycodone. Start dilaudid 1mg iv q4h prn for now mod-severe pain. Re-eval, monitor resp status. Wounds- ecchymosis+; no other open wounds. Nutrition- cardiac diet DVT prophylaxis: none; SCDs GI prophylaxis: Pepcid daily Central Line: Right PICC 10/25 Arterial Line: none Erazo Cathetor: yes Disposition: ICU for septic shock Code Status: full code Total Critical Care time is 45 minutes, excluding procedures/teaching Suleman Coker MD [facility] (Electronically Signed)
[2017-10-26] MEDS: Famotidine TAB* 20 MG PO SCH (11:12)
[2017-10-26] MEDS: HYDROmorphone INJ* 2 MG/ML CARPUJECT SYRINGE IV SLOW PU PRN ×2 (11:13→21:36)
[2017-10-26] MEDS: Gabapentin CAP(*) 100 MG PO SCH ×2 (15:18→19:43)
[2017-10-26 15:35] LABS: Hematocrit 25 % (35-47); Hemoglobin 8.2 g/dl (12.0-16.0)
[2017-10-26] MEDS ORDERED: Digoxin IV* 0.5 MG/2 ML AMP (0.25 MG/ML) IV SLOW PU ONE (15:56)
[2017-10-26] MEDS: Cefepime 1 GM in Dextrose(*) 1 GM/50 ML BAG IV SCH (19:22)
[2017-10-26] MEDS: QUEtiapine TAB* 25 MG PO SCH (19:43)
[2017-10-26] MEDS: Mometasone/Formoter 200/5 MDI INH SCH (21:59)
[2017-10-26] MEDS: Nicotine Patch Removal NOTE PATCH OFF SCH (22:24)
[2017-10-27] MEDS: HYDROmorphone INJ* 2 MG/ML CARPUJECT SYRINGE IV SLOW PU PRN ×5 (02:11→22:51)
[2017-10-27 05:52] LABS: Hematocrit 25 % (35-47); Hemoglobin 8.2 g/dl (12.0-16.0); Mean Corpuscular HGB Conc 33 g/dl (31-36); Mean Corpuscular Hemoglobin 26 pg (27-31); Mean Corpuscular Volume 81 fL (80-97); Mean Platelet Volume 10.6 um3 (7.4-10.4); Platelet Count 111 10^3/ul (150-450); Red Blood Count 3.14 10^6/ul (4.0-5.4); Red Cell Distribution Width 18 % (10.5-15); White Blood Count 7.6 10^3/ul (3.5-10.8)
[2017-10-27 05:59] LABS: INR 2.2 (0.77-1.02)
[2017-10-27] MEDS ORDERED: Vancomycin Random Level* NOTE FOLLOW UP SCH (06:00)
[2017-10-27 06:15] LABS: EGFR Non-African American 19.8 (>60); Vancomycin Trough 14.4 mcg/mL
[2017-10-27] MEDS: QUEtiapine TAB* 25 MG PO SCH (07:44)
[2017-10-27] MEDS: Gabapentin CAP(*) 100 MG PO SCH ×3 (07:44→20:16)
[2017-10-27] MEDS: Atorvastatin* 20 MG TAB PO SCH (07:44)
[2017-10-27] MEDS: Famotidine TAB* 20 MG PO SCH (07:44)
[2017-10-27] MEDS: Mometasone/Formoter 200/5 MDI INH SCH ×2 (08:42→19:48)
[2017-10-27] MEDS: Tiotropium CAP.INH* CAP.INH/18 MCG (USE ORDER SET !) INH SCH (08:43)
[2017-10-27] MEDS ORDERED: Spiriva Inhaler DEVICE* 1 EACH DEVICE INH ONE (09:00)
--- NOTE | 2017-10-27 09:12 | PN ---
Progress Note - Progress Note Date of Service: 10/27/17 Note: Progress Note Critical Care 24 hour events/significant events: -less febrile tmax 99.5 since yesterday -remains on levophed, on 2mcg/min now -on NC, no resp distress -pain better controlled now -awake/alert, no complaints. still feels uneasy when moving around and getting up, weak, less strength. -s/p dig x1, remains in afib, HR 90-110s Tele: afib Vitals: Vital Signs Temp 99.3 F 10/27/17 09:01 Pulse 107 10/27/17 09:01 Resp 19 10/27/17 09:01 BP 117/79 10/27/17 09:00 Pulse Ox 93 10/27/17 09:01 Intake & Output 10/26/17 10/27/17 10/27/17 18:59 06:59 18:59 Intake Total 2116 2016 Output Total 1785 1335 265 Balance 332 682 -265 Weight 326 lb 1.019 oz Intake: IV Fluids 1190 1487 ABX - CEFEPIME 45 ABX - VANCOMYCIN 250 LR 895 1487 IVPB 55 ABX - CEFEPIME 55 Medicated IV 237 325 CC - Norepinephrine/ 237 325 Levophed Oral 690 150 Output: Erazo 1785 1335 265 O2/Vent: 4-5L NC Infusions: LR 75, levophed 2mcg/min Medications: Acetaminophen (Tylenol Tab*) 650 mg PO Q4H PRN PRN Reason: FEVER/PAIN Last Admin: 10/26/17 15:18 Dose: 650 mg Acetaminophen (Tylenol Supp*) 650 mg RI Q4H PRN PRN Reason: FEVER/PAIN Albuterol (Ventolin 2.5 Mg/3 Ml Neb.Lois*) 2.5 mg INH Q4H PRN PRN Reason: SOB/WHEEZING Alprazolam (Xanax Tab*) 0.5 mg PO TID PRN PRN Reason: ANXIETY Atorvastatin Calcium (Lipitor*) 20 mg PO DAILY [facility] Last Admin: 10/27/17 07:44 Dose: 20 mg Famotidine (Pepcid Tab*) 20 mg PO DAILY [facility] Last Admin: 10/27/17 07:44 Dose: 20 mg Gabapentin (Neurontin Cap(*)) 200 mg PO TID [facility] Last Admin: 10/27/17 07:44 Dose: 200 mg Heparin Sodium (Porcine) (Heparin Flush Picc/Ml/Cvc(*)) 1 - 3 ml FLUSH 0600, 1800 [facility] PRN Reason: Protocol Last Admin: 10/27/17 07:03 Dose: 1 ml Hydromorphone HCl (Dilaudid Inj*) 1 mg IV SLOW PU Q4H PRN PRN Reason: PAIN - MODERATE TO SEVERE Last Admin: 10/27/17 07:45 Dose: 1 mg Norepinephrine Bitartrate (Levophed 16 Mcg/Ml Premix Bag*) 4,000 mcg in 250 mls @ 7.5 mls/hr IV .INITIAL RATE LIYAH; 2 MCG/MIN PRN Reason: Protocol Last Admin: 10/26/17 21:49 Dose: 26.3 mls/hr Cefepime HCl (Maxipime 1 Gm In Dextrose Duplex (*)) 1 gm in 50 mls @ 100 mls/ hr IV Q24H [facility] Last Admin: 10/26/17 19:22 Dose: 100 mls/hr Lactated Ringer's (Lactated Ringers 1000 Ml Bag*) 1,000 mls @ 75 mls/hr IV PER RATE [facility] Mometasone Furoate/Formoterol Fumar (Dulera 200/5 Mdi*) 2 puff INH BID [facility] Last Admin: 10/27/17 08:42 Dose: 2 puff Nicotine (Nicotine Patch 14 Mg/24 Hr*) 1 patch TRANSDERM DAILY PRN PRN Reason: CRAVINGS Pharmacy Consult (Vancomycin Per Pharmacy*) 1 note FOLLOW UP . PRN PRN Reason: PER PROTOCOL Pharmacy Consult (Vancomycin Random Level*) 1 note FOLLOW UP 0600 [facility] Last Admin: 10/27/17 05:35 Dose: 1 note Pharmacy Profile Note (Nicotine Patch Removal Note*) 1 note PATCH OFF 2100 [facility] Last Admin: 10/26/17 22:24 Dose: Not Given Quetiapine Fumarate (Seroquel Tab*) 50 mg PO DAILY [facility] Last Admin: 10/27/17 07:44 Dose: 50 mg Tiotropium [place] (Spiriva Cap.Inh*) 1 cap INH DAILY [facility] Last Admin: 10/27/17 08:43 Dose: 1 cap Physical Exam: General: obese, awake, alert, no distress, no diaphoresis Head: normocephalic, atraumatic HEENT: + pallor, no icterus, moist mucous membranes Neck: soft, supple, no jvd, no stridor CVS: tachy, irreg, no murmur Resp: bilateral air entry, right basal rhales+, no wheeze, no rhonchi, no acc muscle use Abdomen: soft, nontender, nondistended, bowel sounds present Ext: pulses+, warm, no edema Skin: intact, areas of diffuse ecchymosis on Lower and upper ext noted on admission Neuro: awake, alert, orientedx3, moving all extremities, no gross focal deficit Labs: Laboratory Results - last 24 hr 10/26/17 10/26/17 10/26/17 12:55 12:55 15:27 WBC RBC Hgb 8.2 L Hct 25 L MCV MCH MCHC RDW Plt Count MPV INR (Anticoag Therapy) Sodium Potassium Chloride Carbon Dioxide Anion Gap BUN Creatinine Est GFR ( Amer) Est GFR (Non-Af Amer) BUN/Creatinine Ratio Glucose Lactic Acid 1.1 Calcium Total Creatine Kinase Procalcitonin 0.2 Vancomycin Trough 10/27/17 10/27/17 10/27/17 05:37 05:37 05:37 WBC 7.6 RBC 3.14 L Hgb 8.2 L Hct 25 L MCV 81 MCH 26 L MCHC 33 RDW 18 H Plt Count 111 L MPV 10.6 H INR (Anticoag Therapy) 2.20 H Sodium 141 Potassium 4.6 Chloride 107 Carbon Dioxide 31 Anion Gap 3 BUN 69 H Creatinine 2.47 H Est GFR ( Amer) 25.4 Est GFR (Non-Af Amer) 19.8 BUN/Creatinine Ratio 27.9 H Glucose 109 H Lactic Acid Calcium 8.5 L Total Creatine Kinase 445 H Procalcitonin Vancomycin Trough 14.4 Imagin/14 renal USG no obstruction/hydro CT abd/pelvis/chest Right lower lobe consolidation+ CXR 10/25 mild congestion+; right lower lobe consolidation+ CT brain 10/25 no acute process Assessment: 68y F pmhx Obesity, Afib, Mod LV systolic dysfunction with RV systolic dysfunction, s/p AICD, COPD on home O2, h/o PE, CKD, active smoker, h/ o mantle cell lymphoma, FRANCIS on CPAP, HTN, HLD; Comes to ER for lethargy, respiratory distress/hypoxia. Found to have drop in Hg and acute on chronic hypoxic/hypercapneic respiratory failure. -Acute on chronic hypercapneic and hypoxic respiratory failure -metabolic encephelopathy -acute blood loss anemia -supratherapeutic INR -neutropenia, resolved -GEORGE on CKD -Afib -Sepsis -Septic Shock -right lower lobe pneumonia -Chronic compensated LV systolic dysfunction Plan: Neuro- encephalopathy improved, alert/awake. Likely from prior hypercapnea +/- sepsis component from pneumonia. Delirium prec. NIV at night should prevent relapse. Careful admin of bdz/narcotics. Asp prec. CVS- shock, suspected sepsis, source pneumonia. On levophed and decreasing req. Euvolemic status. Dec LR to 75cc/hour. Noted good urine output and positive balance. Cont IV abx. Wean pressors to keep sbp>90/MAP>65. Procal and LA neg. Afib, HR 90-110s now; holding BB/CCB due to shock; avoiding amio for now. Repeat Dig today. INR 2.2. Hg stable 8.2. Will resume warfarin; 15mg -Wednesday and 10mg Sat/Sun dosing as per home. Keep hg>7-8. Resp- on NC, tolerating well, no distress, alert. NIV at night. IV abx for RLL pneumonia as demonstrated on CT chest. Sputum cultures. Bronchodilators PRN. No wheezing. ID- tmax 99.5. WBC 7. RLL consolidation+ on CT chest. Sputum cultures reviewed, no clear organism yet. Cont IV Cefepime/Vanco for HCAP coverage. Vanco dosing as per pharmacy. GI- cardiac diet po. GI prophylaxis. Renal- GEORGE on CKD; suspect due to septic ATN + pre-renal + hypotension/ hypoperfusion. LR 75cc/hr. Cr improving. Good urine output. Positive balance. K okay. No acidosis. Erazo+, plan to d/c later today or tomorrow Heme- anemia; hg 8.2. INR 2.2. Restart warfarin, hg stable now. Bleeding was likely from supratherapeutic INR. Mild thrombocytopenia, stable. Neutropenia resolved. Endo- fingerstick as needed. TSH normal limit. Musculsk- chronic back pain; better controlled with dilaudid 1mg, requiring q6h Wounds- ecchymosis+; no other open wounds. Nutrition- cardiac diet DVT prophylaxis: warfarin; SCDs GI prophylaxis: Pepcid daily Central Line: Right PICC 10/25 Arterial Line: none Erazo Cathetor: yes Disposition: ICU for septic shock Code Status: full code Total Critical Care time is 35 minutes, excluding procedures/teaching Suleman Coker MD [employer] (Electronically Signed)
[2017-10-27] MEDS ORDERED: Vancomycin 1500 MG IV - x ONCE IVPB ONE ×2 (09:30)
[2017-10-27] MEDS: Acetaminophen TAB* 325 MG PO PRN ×2 (14:33→18:48)
[2017-10-27] MEDS ORDERED: Warfarin TAB(*) 5 MG PO ONE (17:00)
[2017-10-27] MEDS: Cefepime 1 GM in Dextrose(*) 1 GM/50 ML BAG IV SCH (20:11)
[2017-10-27] MEDS: Nicotine Patch Removal NOTE PATCH OFF SCH (20:12)
[2017-10-28] MEDS: ALPRAZolam TAB* 0.5 MG PO PRN ×2 (02:17→22:56)
[2017-10-28 05:31] LABS: Hematocrit 25 % (35-47); Hemoglobin 7.8 g/dl (12.0-16.0); Mean Corpuscular HGB Conc 32 g/dl (31-36); Mean Corpuscular Hemoglobin 26 pg (27-31); Mean Corpuscular Volume 82 fL (80-97); Mean Platelet Volume 9.9 um3 (7.4-10.4); Platelet Count 102 10^3/ul (150-450); Red Blood Count 3.05 10^6/ul (4.0-5.4); Red Cell Distribution Width 19 % (10.5-15); White Blood Count 7.4 10^3/ul (3.5-10.8)
[2017-10-28 05:41] LABS: INR 1.38 (0.77-1.02)
[2017-10-28 05:46] LABS: Vancomycin Trough 13.8 mcg/mL
[2017-10-28 05:47] LABS: EGFR Non-African American 34.4 (>60)
[2017-10-28] MEDS ORDERED: Vancomycin Random Level* NOTE FOLLOW UP ONE (06:00)
[2017-10-28] MEDS: QUEtiapine TAB* 25 MG PO SCH (08:05)
[2017-10-28] MEDS: Acetaminophen TAB* 325 MG PO PRN (08:05)
[2017-10-28] MEDS: Gabapentin CAP(*) 100 MG PO SCH ×3 (08:05→22:55)
[2017-10-28] MEDS: Atorvastatin* 20 MG TAB PO SCH (08:05)
[2017-10-28] MEDS: Famotidine TAB* 20 MG PO SCH (08:05)
--- NOTE | 2017-10-28 09:35 | PN ---
Progress Note - Progress Note Date of Service: 10/28/17 Note: Progress Note Critical Care 24 hour events/significant events: -tmax 100 this morning only, has been less febrile all day yesterday -off levophed since yesterday -awake/alert, no distress, cough+, not much sputum -no chest pain/sob -no diarrhea Tele: afib Vitals: Vital Signs Temp 99.7 F 10/28/17 09:01 Pulse 109 10/28/17 09:01 Resp 17 10/28/17 09:01 BP 113/74 10/28/17 09:01 Pulse Ox 93 10/28/17 09:01 Intake & Output 10/27/17 10/28/17 10/28/17 18:59 06:59 18:59 Intake Total 1906.4 1566 120 Output Total 1200 1070 Balance 706.4 496 120 Weight 361 lb 8.929 oz Intake: IV Fluids 938 1055 ABX - VANCOMYCIN 280 LR 658 1055 IVPB 61 ABX - CEFEPIME 61 Medicated IV 48.4 CC - Norepinephrine/ 48.4 Levophed Oral 920 450 120 Output: [place] 1200 1070 Other: Estimated Void Large # Voids 1 O2/Vent: 5L NC Infusions: LR 75, levophed off Medications: Acetaminophen (Tylenol Tab*) 650 mg PO Q4H PRN PRN Reason: FEVER/PAIN Last Admin: 10/28/17 08:05 Dose: 650 mg Acetaminophen (Tylenol Supp*) 650 mg CA Q4H PRN PRN Reason: FEVER/PAIN Albuterol (Ventolin 2.5 Mg/3 Ml Neb.Lois*) 2.5 mg INH Q4H PRN PRN Reason: SOB/WHEEZING Alprazolam (Xanax Tab*) 0.5 mg PO TID PRN PRN Reason: ANXIETY Last Admin: 10/28/17 02:17 Dose: 0.5 mg Atorvastatin Calcium (Lipitor*) 20 mg PO DAILY [facility] Last Admin: 10/28/17 08:05 Dose: 20 mg Famotidine (Pepcid Tab*) 20 mg PO DAILY [facility] Last Admin: 10/28/17 08:05 Dose: 20 mg Gabapentin (Neurontin Cap(*)) 200 mg PO TID [facility] Last Admin: 10/28/17 08:05 Dose: 200 mg Heparin Sodium (Porcine) (Heparin Flush Picc/Ml/Cvc(*)) 1 - 3 ml FLUSH 0600, 1800 [facility] PRN Reason: Protocol Last Admin: 10/28/17 05:17 Dose: 1 ml Hydromorphone HCl (Dilaudid Inj*) 1 mg IV SLOW PU Q4H PRN PRN Reason: PAIN - MODERATE TO SEVERE Last Admin: 10/27/17 22:51 Dose: 1 mg Norepinephrine Bitartrate (Levophed 16 Mcg/Ml Premix Bag*) 4,000 mcg in 250 mls @ 7.5 mls/hr IV .INITIAL RATE LIYAH; 2 MCG/MIN PRN Reason: Protocol Last Admin: 10/26/17 21:49 Dose: 26.3 mls/hr Cefepime HCl (Maxipime 1 Gm In Dextrose Duplex (*)) 1 gm in 50 mls @ 100 mls/ hr IV Q24H [facility] Last Admin: 10/27/17 20:11 Dose: 100 mls/hr Lactated Ringer's (Lactated Ringers 1000 Ml Bag*) 1,000 mls @ 75 mls/hr IV PER RATE [facility] Last Admin: 10/28/17 05:31 Dose: 75 mls/hr Mometasone Furoate/Formoterol Fumar (Dulera 200/5 Mdi*) 2 puff INH BID [facility] Last Admin: 10/27/17 19:48 Dose: 2 puff Nicotine (Nicotine Patch 14 Mg/24 Hr*) 1 patch TRANSDERM DAILY PRN PRN Reason: CRAVINGS Pharmacy Consult (Vancomycin Per Pharmacy*) 1 note FOLLOW UP . PRN PRN Reason: PER PROTOCOL Pharmacy Profile Note (Nicotine Patch Removal Note*) 1 note PATCH OFF 2100 [facility] Last Admin: 10/27/17 20:12 Dose: Not Given Pharmacy Profile Note (Coumadin Daily Reminder*) 1 note FOLLOW UP 1700 [facility] Quetiapine Fumarate (Seroquel Tab*) 50 mg PO DAILY [facility] Last Admin: 10/28/17 08:05 Dose: 50 mg Tiotropium [place] (Spiriva Cap.Inh*) 1 cap INH DAILY [facility] Last Admin: 10/27/17 08:43 Dose: 1 cap Warfarin Sodium (Coumadin Tab(*)) 15 mg PO ONCE@1700 [facility] PRN Reason: Protocol Stop: 10/28/17 17:01 Physical Exam: General: obese, awake, alert, no distress, no diaphoresis Head: normocephalic, atraumatic HEENT: + pallor, no icterus, moist mucous membranes Neck: soft, supple, no jvd, no stridor CVS: tachy, irreg, no murmur Resp: bilateral air entry, right basal rhales+, no wheeze, no rhonchi, no acc muscle use Abdomen: soft, nontender, nondistended, bowel sounds present Ext: pulses+, warm, no edema Skin: intact, areas of diffuse ecchymosis on Lower and upper ext noted on admission Neuro: awake, alert, orientedx3, moving all extremities, no gross focal deficit Labs: Laboratory Results - last 24 hr 10/28/17 10/28/17 10/28/17 05:19 05:19 05:19 WBC 7.4 RBC 3.05 L Hgb 7.8 L Hct 25 L MCV 82 MCH 26 L MCHC 32 RDW 19 H Plt Count 102 L MPV 9.9 INR (Anticoag Therapy) 1.38 H Sodium 142 Potassium 4.4 Chloride 107 Carbon Dioxide 32 Anion Gap 3 BUN 40 H Creatinine 1.53 H Est GFR ( Amer) 44.2 Est GFR (Non-Af Amer) 34.4 BUN/Creatinine Ratio 26.1 H Glucose 112 H Calcium 8.3 L Vancomycin Trough 13.8 Imagin/14 renal USG no obstruction/hydro CT abd/pelvis/chest Right lower lobe consolidation+ CXR 10/25 mild congestion+; right lower lobe consolidation+ CT brain 10/25 no acute process cxr 10/28- right lower lobe consolidation improving Assessment: 68y F pmhx Obesity, Afib, Mod LV systolic dysfunction with RV systolic dysfunction, s/p AICD, COPD on home O2, h/o PE, CKD, active smoker, h/ o mantle cell lymphoma, FRANCIS on CPAP, HTN, HLD; Comes to ER for lethargy, respiratory distress/hypoxia. Found to have drop in Hg and acute on chronic hypoxic/hypercapneic respiratory failure. -Acute on chronic hypercapneic and hypoxic respiratory failure -metabolic encephelopathy -acute blood loss anemia -supratherapeutic INR -neutropenia, resolved -GEORGE on CKD -Afib -Sepsis 2/2 to pneumonia -Septic Shock, resolved -right lower lobe pneumonia -Chronic compensated LV systolic dysfunction Plan: Neuro- encephalopathy improved, alert/awake. Delirium prec. NIV at night PRN. Careful admin of bdz/narcotics. Asp prec. CVS- shock resolved. Sepsis, source pneumonia. Off levophed. Afebrile. Afib; mild tachycardia, retart coreg at 12.5mg po bid, increase further, restart cardizem if tolerating coreg. Good urine output, not much positive, cont LR to 50cc/hour. Cont IV abx. Wean pressors to keep sbp>90/MAP>65. INR 1.3; cont warfarin 15mg -Wednesday and 10mg Sat/Sun dosing as per home. Hg 7-8s; Keep hg>7- 8. Resp- on NC 5L, no distress, alert. NIV at night as needed. IV abx for RLL pneumonia. CXR 10/28 with slow improvement. Sputum culture neg. Bronchodilators PRN. No wheezing. ID- tmax 100. WBC normal. RLL consolidation+ on CT chest. CXR slow improvement. Sputum cultures neg. Cont IV Cefepime/Vanco for HCAP coverage (day#4). Vanco dosing as per pharmacy. GI- cardiac diet po. GI prophylaxis. Renal- GEORGE on CKD; suspect due to septic ATN + pre-renal + hypotension/ hypoperfusion. LR 50cc/hr. Cr improving. Good urine output. Positive balance. K okay. No acidosis. can d/c [place] today. Restart torsemide tomorrow. Heme- anemia; hg 7.8. INR 1.3. Cont warfarin. Pending fobt but stools brown. Suspect cause of anemia was supratherapeutic INR and falls/bruising. Mild thrombocytopenia, stable. Neutropenia resolved. Endo- fingerstick as needed. TSH normal limit. Musculsk- chronic back pain; controlled with dilaudid 1mg, requiring q6h prn Wounds- ecchymosis+; no other open wounds. Nutrition- cardiac diet DVT prophylaxis: warfarin; SCDs GI prophylaxis: Pepcid daily Central Line: Right PICC 10/25 Arterial Line: none [place] Cathetor: yes, d/c today Disposition: ICU for sepsis Code Status: full code Total Critical Care time is 35 minutes, excluding procedures/teaching Suleman Coker MD Mechanical Engineering Technician (Electronically Signed)
[2017-10-28] MEDS ORDERED: Vancomycin(*) 1,000 MG in NS 0.9% 250 ML* 250 ML IVPB SCH (10:00)
[2017-10-28] MEDS ORDERED: Carvedilol TAB* 6.25 MG PO SCH (10:00)
[2017-10-28] MEDS ORDERED: Carvedilol TAB* 25 MG PO SCH ×2 (10:00→11:00)
[2017-10-28] MEDS: Mometasone/Formoter 200/5 MDI INH SCH ×2 (10:22→20:16)
[2017-10-28] MEDS: Tiotropium CAP.INH* CAP.INH/18 MCG (USE ORDER SET !) INH SCH (10:23)
[2017-10-28] MEDS: HYDROmorphone INJ* 2 MG/ML CARPUJECT SYRINGE IV SLOW PU PRN ×3 (10:43→22:54)
--- NOTE | 2017-10-28 15:49 | RAD ---
INDICATION: Pneumonia COMPARISON: October 25, 2017 TECHNIQUE: An AP portable view obtained at 0931 hours is submitted. FINDINGS: Bones/Soft Tissues: There are no acute bony findings. There is left-sided cardiac pacemaker/defibrillator Cardiomediastinal: The central pulmonary vessels and interstitium are prominent. There is interstitial and alveolar edema. Lungs: Incisional and alveolar edema. Pleura: Moderate right-sided pleural effusion. Small left-sided pleural effusion. Other: None IMPRESSION: MODERATE VASCULAR CONGESTION. MILD INTERVAL IMPROVEMENT.
[2017-10-28] MEDS: Diltiazem CD CAP* 120 MG PO SCH (16:54)
[2017-10-28] MEDS ORDERED: Warfarin TAB(*) 10 MG PO ONE (17:00)
[2017-10-28] MEDS: Cefepime 1 GM in Dextrose(*) 1 GM/50 ML BAG IV SCH (22:54)
[2017-10-28] MEDS: Carvedilol TAB* 25 MG PO SCH (22:56)
[2017-10-28] MEDS: amLODIPine TAB* 5 MG PO SCH (22:56)
[2017-10-28] MEDS: Nicotine Patch Removal NOTE PATCH OFF SCH (23:06)
[2017-10-29] MEDS: HYDROmorphone INJ* 2 MG/ML CARPUJECT SYRINGE IV SLOW PU PRN (06:01)
[2017-10-29] MEDS: ALPRAZolam TAB* 0.5 MG PO PRN ×2 (06:01→21:36)
[2017-10-29] MEDS: Tiotropium CAP.INH* CAP.INH/18 MCG (USE ORDER SET !) INH SCH (08:10)
[2017-10-29] MEDS: Mometasone/Formoter 200/5 MDI INH SCH ×2 (08:10→21:08)
[2017-10-29 08:35] LABS: Hematocrit 25 % (35-47); Mean Corpuscular HGB Conc 32 g/dl (31-36); Mean Corpuscular Hemoglobin 26 pg (27-31); Mean Corpuscular Volume 81 fL (80-97); Mean Platelet Volume 9.9 um3 (7.4-10.4); Platelet Count 108 10^3/ul (150-450); Red Blood Count 3.05 10^6/ul (4.0-5.4); Red Cell Distribution Width 19 % (10.5-15); White Blood Count 6.9 10^3/ul (3.5-10.8)
[2017-10-29 08:45] LABS: INR 1.91 (0.77-1.02)
[2017-10-29 08:50] LABS: EGFR Non-African American 47.3 (>60)
[2017-10-29] MEDS: Gabapentin CAP(*) 100 MG PO SCH ×3 (09:49→19:57)
[2017-10-29] MEDS: Famotidine TAB* 20 MG PO SCH (09:49)
[2017-10-29] MEDS: Atorvastatin* 20 MG TAB PO SCH (09:49)
[2017-10-29] MEDS: QUEtiapine TAB* 25 MG PO SCH (09:49)
[2017-10-29] MEDS: Acetaminophen TAB* 325 MG PO PRN ×2 (09:49→19:58)
[2017-10-29] MEDS: Torsemide TAB* 20 MG PO SCH (09:49)
[2017-10-29] MEDS: amLODIPine TAB* 5 MG PO SCH (09:50)
[2017-10-29] MEDS: Carvedilol TAB* 25 MG PO SCH ×2 (09:51→19:59)
[2017-10-29] MEDS: Diltiazem CD CAP* 120 MG PO SCH (09:51)
--- NOTE | 2017-10-29 14:27 | PN ---
Subjective Date of Service: 10/29/17 Interval History: pt appears lethargic during the evaluation, cannot keep her eyes opened long enough to carry on a conversation. Objective Active Medications: Acetaminophen (Tylenol Tab*) 650 mg PO Q4H PRN PRN Reason: FEVER/PAIN Last Admin: 10/29/17 09:49 Dose: 650 mg Acetaminophen (Tylenol Supp*) 650 mg PA Q4H PRN PRN Reason: FEVER/PAIN Albuterol (Ventolin 2.5 Mg/3 Ml Neb.Lois*) 2.5 mg INH Q4H PRN PRN Reason: SOB/WHEEZING Alprazolam (Xanax Tab*) 0.5 mg PO TID PRN PRN Reason: ANXIETY Last Admin: 10/29/17 06:01 Dose: 0.5 mg Amlodipine Besylate (Norvasc Tab*) 5 mg PO DAILY [facility] Last Admin: 10/29/17 09:50 Dose: 5 mg Atorvastatin Calcium (Lipitor*) 20 mg PO DAILY [facility] Last Admin: 10/29/17 09:49 Dose: 20 mg Carvedilol (Coreg Tab*) 25 mg PO BID [facility] Last Admin: 10/29/17 09:51 Dose: 25 mg Diltiazem HCl (Cardizem Cd Cap*) 120 mg PO DAILY [facility] Last Admin: 10/29/17 09:51 Dose: 120 mg Famotidine (Pepcid Tab*) 20 mg PO DAILY [facility] Last Admin: 10/29/17 09:49 Dose: 20 mg Gabapentin (Neurontin Cap(*)) 200 mg PO TID [facility] Last Admin: 10/29/17 09:49 Dose: 200 mg Heparin Sodium (Porcine) (Heparin Flush Picc/Ml/Cvc(*)) 1 - 3 ml FLUSH 0600, 1800 [facility] PRN Reason: Protocol Last Admin: 10/29/17 05:37 Dose: Not Given Hydromorphone HCl (Dilaudid Inj*) 1 mg IV SLOW PU Q4H PRN PRN Reason: PAIN - MODERATE TO SEVERE Last Admin: 10/29/17 06:01 Dose: 1 mg Cefepime HCl (Maxipime 1 Gm In Dextrose Duplex (*)) 1 gm in 50 mls @ 100 mls/ hr IV Q24H [facility] Last Admin: 10/28/17 22:54 Dose: 100 mls/hr Mometasone Furoate/Formoterol Fumar (Dulera 200/5 Mdi*) 2 puff INH BID [facility] Last Admin: 10/29/17 08:10 Dose: 2 puff Nicotine (Nicotine Patch 14 Mg/24 Hr*) 1 patch TRANSDERM DAILY PRN PRN Reason: CRAVINGS Pharmacy Profile Note (Nicotine Patch Removal Note*) 1 note PATCH OFF 2100 [facility] Last Admin: 10/28/17 23:06 Dose: Not Given Quetiapine Fumarate (Seroquel Tab*) 50 mg PO DAILY [facility] Last Admin: 10/29/17 09:49 Dose: 50 mg Tiotropium [place] (Spiriva Cap.Inh*) 1 cap INH DAILY [facility] Last Admin: 10/29/17 08:10 Dose: 1 cap Torsemide (Demadex*) 20 mg PO DAILY [facility] Last Admin: 10/29/17 09:49 Dose: 20 mg Warfarin Sodium (Coumadin Tab(*)) 10 mg PO DAILY@1700 [facility] PRN Reason: Protocol Vital Signs - 8 hr 10/29/17 10/29/17 10/29/17 07:43 08:00 09:21 Temperature 98.1 F Pulse Rate 106 Respiratory 20 16 22 Rate Blood Pressure 132/83 (mmHg) O2 Sat by Pulse 97 Oximetry 10/29/17 10/29/17 09:49 11:25 Temperature 99.3 F Pulse Rate 93 Respiratory 18 20 Rate Blood Pressure 101/60 (mmHg) O2 Sat by Pulse 99 Oximetry Oxygen Devices in Use Now: Nasal Cannula Appearance: 62 yo f in nAD, lethargic, unable to assess orientation due to pt falling asleep constantly Eyes: No Scleral Icterus, PERRLA Ears/Nose/Mouth/Throat: NL Teeth, Lips, Gums, Mucous Membranes Moist Neck: NL Appearance and Movements; NL JVP Respiratory: Symmetrical Chest Expansion and Respiratory Effort, - - rhonchi b/l Cardiovascular: NL Sounds; No Murmurs; No JVD, - - irregular Abdominal: NL Sounds; No Tenderness; No Distention Lymphatic: No Cervical Adenopathy Extremities: No Clubbing, Cyanosis, - - tace pedal edema b/l R>L Skin: No Nodules or Sclerosis, - - extensive ecchymoses on b/l LE's Neurological: NL Muscle Strength and Tone Result Diagrams: 10/29/17 08:26 10/29/17 08:26 Additional Lab and Data: Lab Results 10/25/17 10/25/17 10/25/17 Range/Units 09:41 09:41 09:41 WBC 3.5 (3.5-10.8) 10^3/ul RBC 3.49 L (4.0-5.4) 10^6/ul Hgb 9.0 L (12.0-16.0) g/dl Hct 28 L (35-47) % MCV 81 (80-97) fL MCH 26 L (27-31) pg MCHC 32 (31-36) g/dl RDW 20 H (10.5-15) % Plt Count 137 L (150-450) 10^3/ul MPV 11.5 H (7.4-10.4) um3 Neut % (Auto) Not Reportable Lymph % (Auto) Not Reportable [place] % (Auto) Not Reportable Eos % (Auto) Not Reportable Baso % (Auto) Not Reportable Absolute Neuts (auto) Not Reportable Absolute Lymphs (auto) Not Reportable Absolute Monos (auto) Not Reportable Absolute Eos (auto) Not Reportable Absolute Basos (auto) Not Reportable Absolute Nucleated RBC Not Reportable Immature Gran % 2 (0-9) % Neutrophils % 21 L (38-83) % Band Neutrophils % 2 (0-8) % Lymphocytes % 58 H (25-47) % Monocytes % 17 H (0-7) % Eosinophils % 0 (0-6) % Basophils % 2 (0-2) % Nucleated RBC % Not Reportable Abs Neuts (Manual) 0.7 L* (1.5-7.7) 10^3/ul Abs Lymphs (Manual) 2.0 (1.0-4.8) 10^3/ul Abs Monocytes (Manual) 0.6 (0-0.8) 10^3/ul Absolute Eos (Manual) 0 (0-0.6) 10^3/ul Abs Basophils (Manual) 0.1 (0-0.2) 10^3/ul Normal RBC Morphology Not Reportable Hypochromasia 1+ Microcytosis 1+ INR (Anticoag Therapy) (0.77-1.02) D-Dimer, Quantitative (Less Than 230) ng/mL ABG pH (7.35-7.45) ABG pCO2 (35-45) mmHg ABG pO2 (80-100) mmHg ABG HCO3 (19-31) mmol/L ABG O2 Saturation (95-98) % ABG Base Excess (-2.0-2.0) Sodium 140 (139-145) mmol/L Potassium 6.5 H* (3.5-5.0) mmol/L Chloride 101 (101-111) mmol/L Carbon Dioxide 31 (22-32) mmol/L Anion Gap 8 (2-11) mmol/L BUN 113 H (6-24) mg/dL Creatinine 5.33 H (0.51-0.95) mg/dL Est GFR ( Amer) 10.5 (>60) Est GFR (Non-Af Amer) 8.1 (>60) BUN/Creatinine Ratio 21.2 H (8-20) Glucose 96 (70-100) mg/dL Lactic Acid 0.8 (0.5-2.0) mmol/L Calcium 9.1 (8.6-10.3) mg/dL Phosphorus 6.8 H (2.5-5.0) mg/dL Magnesium 2.3 (1.9-2.7) mg/dL Total Bilirubin 0.50 (0.2-1.0) mg/dL AST 35 (13-39) U/L ALT 25 (7-52) U/L Alkaline Phosphatase 46 (34-104) U/L Total Creatine Kinase Pending Troponin I 0.04 H* (<0.04) ng/mL C-Reactive Protein 168.67 H (< 5.00) mg/L B-Natriuretic Peptide ( - 100) pg/mL Total Protein 6.2 L (6.4-8.9) g/dL Albumin 3.3 (3.2-5.2) g/dL Globulin 2.9 (2-4) g/dL Albumin/Globulin Ratio 1.1 (1-3) TSH Pending Blood Type Antibody Screen 10/25/17 10/25/17 10/25/17 Range/Units 09:41 09:41 09:41 WBC (3.5-10.8) 10^3/ul RBC (4.0-5.4) 10^6/ul Hgb (12.0-16.0) g/dl Hct (35-47) % MCV (80-97) fL MCH (27-31) pg MCHC (31-36) g/dl RDW (10.5-15) % Plt Count (150-450) 10^3/ul MPV (7.4-10.4) um3 Neut % (Auto) Lymph % (Auto) [place] % (Auto) Eos % (Auto) Baso % (Auto) Absolute Neuts (auto) Absolute Lymphs (auto) Absolute Monos (auto) Absolute Eos (auto) Absolute Basos (auto) Absolute Nucleated RBC Immature Gran % (0-9) % Neutrophils % (38-83) % Band Neutrophils % (0-8) % Lymphocytes % (25-47) % Monocytes % (0-7) % Eosinophils % (0-6) % Basophils % (0-2) % Nucleated RBC % Abs Neuts (Manual) (1.5-7.7) 10^3/ul Abs Lymphs (Manual) (1.0-4.8) 10^3/ul Abs Monocytes (Manual) (0-0.8) 10^3/ul Absolute Eos (Manual) (0-0.6) 10^3/ul Abs Basophils (Manual) (0-0.2) 10^3/ul Normal RBC Morphology Hypochromasia Microcytosis INR (Anticoag Therapy) 5.64 H* (0.77-1.02) D-Dimer, Quantitative < 200 (Less Than 230) ng/mL ABG pH (7.35-7.45) ABG pCO2 (35-45) mmHg ABG pO2 (80-100) mmHg ABG HCO3 (19-31) mmol/L ABG O2 Saturation (95-98) % ABG Base Excess (-2.0-2.0) Sodium (139-145) mmol/L Potassium (3.5-5.0) mmol/L Chloride (101-111) mmol/L Carbon Dioxide (22-32) mmol/L Anion Gap (2-11) mmol/L BUN (6-24) mg/dL Creatinine (0.51-0.95) mg/dL Est GFR ( Amer) (>60) Est GFR (Non-Af Amer) (>60) BUN/Creatinine Ratio (8-20) Glucose (70-100) mg/dL Lactic Acid (0.5-2.0) mmol/L Calcium (8.6-10.3) mg/dL Phosphorus (2.5-5.0) mg/dL Magnesium (1.9-2.7) mg/dL Total Bilirubin (0.2-1.0) mg/dL AST (13-39) U/L ALT (7-52) U/L Alkaline Phosphatase (34-104) U/L Total Creatine Kinase Troponin I (<0.04) ng/mL C-Reactive Protein (< 5.00) mg/L B-Natriuretic Peptide 116 H ( - 100) pg/mL Total Protein (6.4-8.9) g/dL Albumin (3.2-5.2) g/dL Globulin (2-4) g/dL Albumin/Globulin Ratio (1-3) TSH Blood Type O Positive Antibody Screen Negative 10/25/17 Range/Units 10:05 WBC (3.5-10.8) 10^3/ul RBC (4.0-5.4) 10^6/ul Hgb (12.0-16.0) g/dl Hct (35-47) % MCV (80-97) fL MCH (27-31) pg MCHC (31-36) g/dl RDW (10.5-15) % Plt Count (150-450) 10^3/ul MPV (7.4-10.4) um3 Neut % (Auto) Lymph % (Auto) [place] % (Auto) Eos % (Auto) Baso % (Auto) Absolute Neuts (auto) Absolute Lymphs (auto) Absolute Monos (auto) Absolute Eos (auto) Absolute Basos (auto) Absolute Nucleated RBC Immature Gran % (0-9) % Neutrophils % (38-83) % Band Neutrophils % (0-8) % Lymphocytes % (25-47) % Monocytes % (0-7) % Eosinophils % (0-6) % Basophils % (0-2) % Nucleated RBC % Abs Neuts (Manual) (1.5-7.7) 10^3/ul Abs Lymphs (Manual) (1.0-4.8) 10^3/ul Abs Monocytes (Manual) (0-0.8) 10^3/ul Absolute Eos (Manual) (0-0.6) 10^3/ul Abs Basophils (Manual) (0-0.2) 10^3/ul Normal RBC Morphology Hypochromasia Microcytosis INR (Anticoag Therapy) (0.77-1.02) D-Dimer, Quantitative (Less Than 230) ng/mL ABG pH 7.32 L (7.35-7.45) ABG pCO2 61 H (35-45) mmHg ABG pO2 85 (80-100) mmHg ABG HCO3 28.2 (19-31) mmol/L ABG O2 Saturation 97.0 (95-98) % ABG Base Excess 4.3 H (-2.0-2.0) Sodium (139-145) mmol/L Potassium (3.5-5.0) mmol/L Chloride (101-111) mmol/L Carbon Dioxide (22-32) mmol/L Anion Gap (2-11) mmol/L BUN (6-24) mg/dL Creatinine (0.51-0.95) mg/dL Est GFR ( Amer) (>60) Est GFR (Non-Af Amer) (>60) BUN/Creatinine Ratio (8-20) Glucose (70-100) mg/dL Lactic Acid (0.5-2.0) mmol/L Calcium (8.6-10.3) mg/dL Phosphorus (2.5-5.0) mg/dL Magnesium (1.9-2.7) mg/dL Total Bilirubin (0.2-1.0) mg/dL AST (13-39) U/L ALT (7-52) U/L Alkaline Phosphatase (34-104) U/L Total Creatine Kinase Troponin I (<0.04) ng/mL C-Reactive Protein (< 5.00) mg/L B-Natriuretic Peptide ( - 100) pg/mL Total Protein (6.4-8.9) g/dL Albumin (3.2-5.2) g/dL Globulin (2-4) g/dL Albumin/Globulin Ratio (1-3) TSH Blood Type Antibody Screen Microbiology and Other Data: Microbiology 10/26/17 13:19 Aerobic Blood Culture - Preliminary Blood Venous No Growth Day 3 Anaerobic Blood Culture - Preliminary No Growth Day 3 10/26/17 12:55 Aerobic Blood Culture - Preliminary Blood Line No Growth Day 3 Anaerobic Blood Culture - Preliminary No Growth Day 3 10/25/17 13:20 Aerobic Blood Culture - Preliminary Blood Venous No Growth Day 3 Anaerobic Blood Culture - Preliminary No Growth Day 3 10/25/17 14:34 Aerobic Blood Culture - Preliminary Blood Venous No Growth Day 3 Anaerobic Blood Culture - Preliminary No Growth Day 3 10/26/17 12:55 Gram Stain - Final Sputum Sputum Culture - Final Normal Ana Cristina 10/25/17 12:44 Nasal Screen MRSA (PCR)(JOAO) - Final Nasal Mrsa Not Detected Assess/Plan/Problems-Billing Assessment: Mrs. 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 ABG shows normal PH. cont supportive tx. check ammonia (2) Septic shock Comment: due to pneumonia resolved, was on pressors in ICU. so far cx neg cont Cefepime, Vanc discontinued (3) Acute exacerbation of CHF (congestive heart failure) Comment: EF 35% in 06/2017 cont demadex at home dose. will tx with one dose of IV Lasix today (4) Acute respiratory failure with hypoxemia Comment: continues to require 5 O2, at STR was on 4 L (5) Acute kidney injury Comment: due to sepvere sepsis-ATN creat back to baseline CKD stage 3 (6) History of pulmonary embolism Comment: coumadin restarted INR 1.9 today (7) Afib Comment: controlled on cardizem and coreg (8) Mantle cell lymphoma Comment: Ibrutinib on hold while admitted; needs to be resumed upon discharge (9) COPD (chronic obstructive pulmonary disease) Current Visit: No Comment: Pt has no wheezing on exam today. Continue inhalers (10) FRANCIS (obstructive sleep apnea) Comment: Continue CPAP. (11) DVT prophylaxis Comment: Continue coumadin with daily INR's (12) Anemia Comment: normacytic, Hb stable at 8. ? related to multiple ecchymoses after a fall prior to admission Status and Disposition: inpatient
[2017-10-29] MEDS ORDERED: Furosemide IV* 10 MG/ML 2 ML VIAL (20 MG) IV ONE (14:31)
[2017-10-29] MEDS ORDERED: Furosemide IV* 10 MG/ML 2 ML VIAL (20 MG) ONE (14:49)
[2017-10-29] MEDS ORDERED: Alteplase (CATHFLO)* 2 MG VIAL IV ONE (16:52)
[2017-10-29] MEDS ORDERED: Warfarin TAB(*) 10 MG PO SCH (17:00)
[2017-10-29] MEDS: Cefepime 1 GM in Dextrose(*) 1 GM/50 ML BAG IV SCH (19:57)
[2017-10-29] MEDS: Nicotine Patch Removal NOTE PATCH OFF SCH (21:08)
[2017-10-30] MEDS: ALPRAZolam TAB* 0.5 MG PO PRN ×2 (01:32→20:11)
[2017-10-30] MEDS: Acetaminophen TAB* 325 MG PO PRN ×2 (04:34→08:27)
[2017-10-30] MEDS ORDERED: Cyclobenzaprine TAB* 10 MG PO ONE (05:06)
[2017-10-30 05:34] LABS: Hematocrit 23 % (35-47); Hemoglobin 7.5 g/dl (12.0-16.0); Mean Corpuscular HGB Conc 32 g/dl (31-36); Mean Corpuscular Hemoglobin 26 pg (27-31); Mean Corpuscular Volume 81 fL (80-97); Mean Platelet Volume 9.8 um3 (7.4-10.4); Platelet Count 108 10^3/ul (150-450); Red Blood Count 2.89 10^6/ul (4.0-5.4); Red Cell Distribution Width 18 % (10.5-15)
[2017-10-30 05:38] LABS: ABS Basophils 0 10^3/ul (0-0.2); ABS Eosinophils 0 10^3/ul (0-0.6); ABS Monocytes 0.3 10^3/ul (0-0.8); ABS Neutrophils 5.5 10^3/ul (1.5-7.7)
[2017-10-30 05:46] LABS: INR 2.83 (0.77-1.02)
[2017-10-30 05:53] LABS: EGFR Non-African American 40.4 (>60)
[2017-10-30 06:18] LABS: ABS Nucleated RBC 0.1 10^3/ul; Eosinophil % 0.4 % (0-6); Nucleated Red Blood Cells % 0.9
[2017-10-30] MEDS: Mometasone/Formoter 200/5 MDI INH SCH ×2 (07:43→20:40)
[2017-10-30] MEDS: Tiotropium CAP.INH* CAP.INH/18 MCG (USE ORDER SET !) INH SCH (07:43)
[2017-10-30] MEDS: Gabapentin CAP(*) 100 MG PO SCH ×3 (08:27→20:11)
[2017-10-30] MEDS: Famotidine TAB* 20 MG PO SCH (08:28)
[2017-10-30] MEDS: amLODIPine TAB* 5 MG PO SCH (08:28)
[2017-10-30] MEDS: Torsemide TAB* 20 MG PO SCH ×3 (08:28→20:11)
[2017-10-30] MEDS: Atorvastatin* 20 MG TAB PO SCH (08:28)
[2017-10-30] MEDS: Carvedilol TAB* 25 MG PO SCH ×3 (08:28→20:12)
[2017-10-30] MEDS: Diltiazem CD CAP* 120 MG PO SCH (08:28)
[2017-10-30] MEDS ORDERED: Magnesium Hydroxide LIQ* 30 ML UDC PO ONE (08:56)
[2017-10-30] MEDS ORDERED: Vancomycin Trough Check NOTE FOLLOW UP ONE (09:30)
[2017-10-30] MEDS ORDERED: Carvedilol TAB* 25 MG PO ONE (10:15)
[2017-10-30] MEDS: Spironolactone TAB* 25 MG PO SCH (10:26)
[2017-10-30] MEDS: QUEtiapine TAB* 25 MG PO SCH (10:47)
[2017-10-30] MEDS: oxyCODONE TAB* 5 MG TAB PO PRN (13:59)
--- NOTE | 2017-10-30 15:13 | PN ---
Subjective Date of Service: 10/30/17 Interval History: Pt feels much better, awake and alert. Needed to be informed about what happened in ICU since she didn't remember much since her fall at [facility] Objective Active Medications: Acetaminophen (Tylenol Tab*) 650 mg PO Q4H PRN PRN Reason: FEVER/PAIN Last Admin: 10/30/17 08:27 Dose: 650 mg Acetaminophen (Tylenol Supp*) 650 mg [place] Q4H PRN PRN Reason: FEVER/PAIN Albuterol (Ventolin 2.5 Mg/3 Ml Neb.Lois*) 2.5 mg INH Q4H PRN PRN Reason: SOB/WHEEZING Alprazolam (Xanax Tab*) 0.5 mg PO TID PRN PRN Reason: ANXIETY Last Admin: 10/30/17 01:32 Dose: 0.5 mg Atorvastatin Calcium (Lipitor*) 20 mg PO DAILY [facility] Last Admin: 10/30/17 08:28 Dose: 20 mg Carvedilol (Coreg Tab*) 50 mg PO BID [facility] Last Admin: 10/30/17 10:28 Dose: Not Given Cyclobenzaprine HCl (Flexeril Tab*) 10 mg PO TID PRN PRN Reason: PAIN Diltiazem HCl (Cardizem Cd Cap*) 120 mg PO DAILY [facility] Last Admin: 10/30/17 08:28 Dose: 120 mg Famotidine (Pepcid Tab*) 20 mg PO DAILY [facility] Last Admin: 10/30/17 08:28 Dose: 20 mg Gabapentin (Neurontin Cap(*)) 200 mg PO TID [facility] Last Admin: 10/30/17 13:59 Dose: 200 mg Heparin Sodium (Porcine) (Heparin Flush Picc/Ml/Cvc(*)) 1 - 3 ml FLUSH 0600, 1800 [facility] PRN Reason: Protocol Last Admin: 10/30/17 05:29 Dose: 3 ml Cefepime HCl (Maxipime 1 Gm In Dextrose Duplex (*)) 1 gm in 50 mls @ 100 mls/ hr IV Q24H [facility] Last Admin: 10/29/17 19:57 Dose: 100 mls/hr Mometasone Furoate/Formoterol Fumar (Dulera 200/5 Mdi*) 2 puff INH BID [facility] Last Admin: 10/30/17 07:43 Dose: 2 puff Nicotine (Nicotine Patch 14 Mg/24 Hr*) 1 patch TRANSDERM DAILY PRN PRN Reason: CRAVINGS Oxycodone HCl (Roxycodone Tab*) 5 mg PO Q6H PRN PRN Reason: PAIN Last Admin: 10/30/17 13:59 Dose: 5 mg Pharmacy Profile Note (Nicotine Patch Removal Note*) 1 note PATCH OFF 2100 [facility] Last Admin: 10/29/17 21:08 Dose: Not Given Quetiapine Fumarate (Seroquel Tab*) 800 mg PO BEDTIME [facility] Spironolactone (Aldactone Tab*) 50 mg PO DAILY [facility] Last Admin: 10/30/17 10:26 Dose: 50 mg Tiotropium [place] (Spiriva Cap.Inh*) 1 cap INH DAILY [facility] Last Admin: 10/30/17 07:43 Dose: 1 cap Torsemide (Demadex*) 20 mg PO BID [facility] Last Admin: 10/30/17 09:59 Dose: Not Given Vital Signs - 8 hr 10/30/17 10/30/17 10/30/17 07:46 07:59 08:00 Temperature 99.9 F Pulse Rate 100 95 Respiratory 18 20 22 Rate Blood Pressure 131/79 (mmHg) O2 Sat by Pulse 90 96 Oximetry 10/30/17 10/30/17 10/30/17 08:27 12:22 13:59 Temperature 97.7 F Pulse Rate 95 Respiratory 22 20 20 Rate Blood Pressure 106/64 (mmHg) O2 Sat by Pulse 97 Oximetry Oxygen Devices in Use Now: Nasal Cannula Appearance: 62 yo F in nAD, aAOx3 Eyes: No Scleral Icterus, PERRLA Ears/Nose/Mouth/Throat: NL Teeth, Lips, Gums, Mucous Membranes Moist Neck: NL Appearance and Movements; NL JVP, Trachea Midline Respiratory: Symmetrical Chest Expansion and Respiratory Effort, Clear to Auscultation Cardiovascular: NL Sounds; No Murmurs; No JVD, - - irregular Abdominal: NL Sounds; No Tenderness; No Distention, No Hepatosplenomegaly Lymphatic: No Cervical Adenopathy Extremities: No Clubbing, Cyanosis, - - trace pedal edema b/l Skin: - - diffuse ecchymoses b/l LE's Neurological: Alert and Oriented x 3, NL Muscle Strength and Tone Result Diagrams: 10/30/17 05:20 10/30/17 05:20 Additional Lab and Data: Lab Results 10/25/17 10/25/17 10/25/17 Range/Units 09:41 09:41 09:41 WBC 3.5 (3.5-10.8) 10^3/ul RBC 3.49 L (4.0-5.4) 10^6/ul Hgb 9.0 L (12.0-16.0) g/dl Hct 28 L (35-47) % MCV 81 (80-97) fL MCH 26 L (27-31) pg MCHC 32 (31-36) g/dl RDW 20 H (10.5-15) % Plt Count 137 L (150-450) 10^3/ul MPV 11.5 H (7.4-10.4) um3 Neut % (Auto) Not Reportable Lymph % (Auto) Not Reportable [place] % (Auto) Not Reportable Eos % (Auto) Not Reportable Baso % (Auto) Not Reportable Absolute Neuts (auto) Not Reportable Absolute Lymphs (auto) Not Reportable Absolute Monos (auto) Not Reportable Absolute Eos (auto) Not Reportable Absolute Basos (auto) Not Reportable Absolute Nucleated RBC Not Reportable Immature Gran % 2 (0-9) % Neutrophils % 21 L (38-83) % Band Neutrophils % 2 (0-8) % Lymphocytes % 58 H (25-47) % Monocytes % 17 H (0-7) % Eosinophils % 0 (0-6) % Basophils % 2 (0-2) % Nucleated RBC % Not Reportable Abs Neuts (Manual) 0.7 L* (1.5-7.7) 10^3/ul Abs Lymphs (Manual) 2.0 (1.0-4.8) 10^3/ul Abs Monocytes (Manual) 0.6 (0-0.8) 10^3/ul Absolute Eos (Manual) 0 (0-0.6) 10^3/ul Abs Basophils (Manual) 0.1 (0-0.2) 10^3/ul Normal RBC Morphology Not Reportable Hypochromasia 1+ Microcytosis 1+ INR (Anticoag Therapy) (0.77-1.02) D-Dimer, Quantitative (Less Than 230) ng/mL ABG pH (7.35-7.45) ABG pCO2 (35-45) mmHg ABG pO2 (80-100) mmHg ABG HCO3 (19-31) mmol/L ABG O2 Saturation (95-98) % ABG Base Excess (-2.0-2.0) Sodium 140 (139-145) mmol/L Potassium 6.5 H* (3.5-5.0) mmol/L Chloride 101 (101-111) mmol/L Carbon Dioxide 31 (22-32) mmol/L Anion Gap 8 (2-11) mmol/L BUN 113 H (6-24) mg/dL Creatinine 5.33 H (0.51-0.95) mg/dL Est GFR ( Amer) 10.5 (>60) Est GFR (Non-Af Amer) 8.1 (>60) BUN/Creatinine Ratio 21.2 H (8-20) Glucose 96 (70-100) mg/dL Lactic Acid 0.8 (0.5-2.0) mmol/L Calcium 9.1 (8.6-10.3) mg/dL Phosphorus 6.8 H (2.5-5.0) mg/dL Magnesium 2.3 (1.9-2.7) mg/dL Total Bilirubin 0.50 (0.2-1.0) mg/dL AST 35 (13-39) U/L ALT 25 (7-52) U/L Alkaline Phosphatase 46 (34-104) U/L Total Creatine Kinase Pending Troponin I 0.04 H* (<0.04) ng/mL C-Reactive Protein 168.67 H (< 5.00) mg/L B-Natriuretic Peptide ( - 100) pg/mL Total Protein 6.2 L (6.4-8.9) g/dL Albumin 3.3 (3.2-5.2) g/dL Globulin 2.9 (2-4) g/dL Albumin/Globulin Ratio 1.1 (1-3) TSH Pending Blood Type Antibody Screen 10/25/17 10/25/17 10/25/17 Range/Units 09:41 09:41 09:41 WBC (3.5-10.8) 10^3/ul RBC (4.0-5.4) 10^6/ul Hgb (12.0-16.0) g/dl Hct (35-47) % MCV (80-97) fL MCH (27-31) pg MCHC (31-36) g/dl RDW (10.5-15) % Plt Count (150-450) 10^3/ul MPV (7.4-10.4) um3 Neut % (Auto) Lymph % (Auto) [place] % (Auto) Eos % (Auto) Baso % (Auto) Absolute Neuts (auto) Absolute Lymphs (auto) Absolute Monos (auto) Absolute Eos (auto) Absolute Basos (auto) Absolute Nucleated RBC Immature Gran % (0-9) % Neutrophils % (38-83) % Band Neutrophils % (0-8) % Lymphocytes % (25-47) % Monocytes % (0-7) % Eosinophils % (0-6) % Basophils % (0-2) % Nucleated RBC % Abs Neuts (Manual) (1.5-7.7) 10^3/ul Abs Lymphs (Manual) (1.0-4.8) 10^3/ul Abs Monocytes (Manual) (0-0.8) 10^3/ul Absolute Eos (Manual) (0-0.6) 10^3/ul Abs Basophils (Manual) (0-0.2) 10^3/ul Normal RBC Morphology Hypochromasia Microcytosis INR (Anticoag Therapy) 5.64 H* (0.77-1.02) D-Dimer, Quantitative < 200 (Less Than 230) ng/mL ABG pH (7.35-7.45) ABG pCO2 (35-45) mmHg ABG pO2 (80-100) mmHg ABG HCO3 (19-31) mmol/L ABG O2 Saturation (95-98) % ABG Base Excess (-2.0-2.0) Sodium (139-145) mmol/L Potassium (3.5-5.0) mmol/L Chloride (101-111) mmol/L Carbon Dioxide (22-32) mmol/L Anion Gap (2-11) mmol/L BUN (6-24) mg/dL Creatinine (0.51-0.95) mg/dL Est GFR ( Amer) (>60) Est GFR (Non-Af Amer) (>60) BUN/Creatinine Ratio (8-20) Glucose (70-100) mg/dL Lactic Acid (0.5-2.0) mmol/L Calcium (8.6-10.3) mg/dL Phosphorus (2.5-5.0) mg/dL Magnesium (1.9-2.7) mg/dL Total Bilirubin (0.2-1.0) mg/dL AST (13-39) U/L ALT (7-52) U/L Alkaline Phosphatase (34-104) U/L Total Creatine Kinase Troponin I (<0.04) ng/mL C-Reactive Protein (< 5.00) mg/L B-Natriuretic Peptide 116 H ( - 100) pg/mL Total Protein (6.4-8.9) g/dL Albumin (3.2-5.2) g/dL Globulin (2-4) g/dL Albumin/Globulin Ratio (1-3) TSH Blood Type O Positive Antibody Screen Negative 10/25/17 Range/Units 10:05 WBC (3.5-10.8) 10^3/ul RBC (4.0-5.4) 10^6/ul Hgb (12.0-16.0) g/dl Hct (35-47) % MCV (80-97) fL MCH (27-31) pg MCHC (31-36) g/dl RDW (10.5-15) % Plt Count (150-450) 10^3/ul MPV (7.4-10.4) um3 Neut % (Auto) Lymph % (Auto) [place] % (Auto) Eos % (Auto) Baso % (Auto) Absolute Neuts (auto) Absolute Lymphs (auto) Absolute Monos (auto) Absolute Eos (auto) Absolute Basos (auto) Absolute Nucleated RBC Immature Gran % (0-9) % Neutrophils % (38-83) % Band Neutrophils % (0-8) % Lymphocytes % (25-47) % Monocytes % (0-7) % Eosinophils % (0-6) % Basophils % (0-2) % Nucleated RBC % Abs Neuts (Manual) (1.5-7.7) 10^3/ul Abs Lymphs (Manual) (1.0-4.8) 10^3/ul Abs Monocytes (Manual) (0-0.8) 10^3/ul Absolute Eos (Manual) (0-0.6) 10^3/ul Abs Basophils (Manual) (0-0.2) 10^3/ul Normal RBC Morphology Hypochromasia Microcytosis INR (Anticoag Therapy) (0.77-1.02) D-Dimer, Quantitative (Less Than 230) ng/mL ABG pH 7.32 L (7.35-7.45) ABG pCO2 61 H (35-45) mmHg ABG pO2 85 (80-100) mmHg ABG HCO3 28.2 (19-31) mmol/L ABG O2 Saturation 97.0 (95-98) % ABG Base Excess 4.3 H (-2.0-2.0) Sodium (139-145) mmol/L Potassium (3.5-5.0) mmol/L Chloride (101-111) mmol/L Carbon Dioxide (22-32) mmol/L Anion Gap (2-11) mmol/L BUN (6-24) mg/dL Creatinine (0.51-0.95) mg/dL Est GFR ( Amer) (>60) Est GFR (Non-Af Amer) (>60) BUN/Creatinine Ratio (8-20) Glucose (70-100) mg/dL Lactic Acid (0.5-2.0) mmol/L Calcium (8.6-10.3) mg/dL Phosphorus (2.5-5.0) mg/dL Magnesium (1.9-2.7) mg/dL Total Bilirubin (0.2-1.0) mg/dL AST (13-39) U/L ALT (7-52) U/L Alkaline Phosphatase (34-104) U/L Total Creatine Kinase Troponin I (<0.04) ng/mL C-Reactive Protein (< 5.00) mg/L B-Natriuretic Peptide ( - 100) pg/mL Total Protein (6.4-8.9) g/dL Albumin (3.2-5.2) g/dL Globulin (2-4) g/dL Albumin/Globulin Ratio (1-3) TSH Blood Type Antibody Screen Microbiology and Other Data: Microbiology 10/26/17 13:19 Aerobic Blood Culture - Preliminary Blood Venous No Growth Day 3 Anaerobic Blood Culture - Preliminary No Growth Day 3 10/26/17 12:55 Aerobic Blood Culture - Preliminary Blood Line No Growth Day 3 Anaerobic Blood Culture - Preliminary No Growth Day 3 10/25/17 13:20 Aerobic Blood Culture - Preliminary Blood Venous No Growth Day 3 Anaerobic Blood Culture - Preliminary No Growth Day 3 10/25/17 14:34 Aerobic Blood Culture - Preliminary Blood Venous No Growth Day 3 Anaerobic Blood Culture - Preliminary No Growth Day 3 10/26/17 12:55 Gram Stain - Final Sputum Sputum Culture - Final Normal Ana Cristina 10/25/17 12:44 Nasal Screen MRSA (PCR)(JOAO) - Final Nasal Mrsa Not Detected Assess/Plan/Problems-Billing Assessment: Mrs. 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 (2) Septic shock Comment: due to pneumonia resolved, was on pressors in ICU. so far cx neg cont Cefepime, Vanc discontinued (3) Acute exacerbation of CHF (congestive heart failure) Comment: EF 35% in 06/2017 cont demadex at home dose. Restarted aldactone today (4) Acute respiratory failure with hypoxemia Comment: back to baseline 4 L, at STR was on 4 L (5) Acute kidney injury Comment: due to sepvere sepsis-ATN creat back to baseline CKD stage 3 (6) History of pulmonary embolism Comment: coumadin held today (7) Afib Comment: controlled on cardizem and coreg (8) Mantle cell lymphoma Comment: Ibrutinib on hold while admitted; needs to be resumed upon discharge (9) COPD (chronic obstructive pulmonary disease) Current Visit: No Comment: Pt has no wheezing on exam today. Continue inhalers (10) FRANCIS (obstructive sleep apnea) Comment: Continue CPAP. (11) Anemia Comment: normocytic, Hb stable at 8. ? related to multiple ecchymoses after a fall prior to admission as well as mantle cell lymphoma and baseline chroinc anemia stool guaiac pending will start iron supplement (12) DVT prophylaxis Comment: Holding coumadin for INR 2.8 today Status and Disposition: inpatient
[2017-10-30] MEDS: Cefepime 1 GM in Dextrose(*) 1 GM/50 ML BAG IV SCH (20:10)
[2017-10-30] MEDS: QUEtiapine TAB* 100 MG PO SCH (20:12)
[2017-10-30] MEDS: Nicotine Patch Removal NOTE PATCH OFF SCH (20:21)
[2017-10-31] MEDS: oxyCODONE TAB* 5 MG TAB PO PRN ×2 (02:51→09:39)
[2017-10-31] MEDS: ALPRAZolam TAB* 0.5 MG PO PRN ×2 (02:55→20:59)
[2017-10-31 05:31] LABS: Hematocrit 23 % (35-47); Hemoglobin 7.4 g/dl (12.0-16.0); Mean Corpuscular HGB Conc 32 g/dl (31-36); Mean Corpuscular Hemoglobin 26 pg (27-31); Mean Corpuscular Volume 80 fL (80-97); Mean Platelet Volume 9.5 um3 (7.4-10.4); Platelet Count 118 10^3/ul (150-450); Red Blood Count 2.89 10^6/ul (4.0-5.4); Red Cell Distribution Width 18 % (10.5-15); White Blood Count 6.4 10^3/ul (3.5-10.8)
[2017-10-31 05:37] LABS: INR 2.18 (0.77-1.02)
[2017-10-31 05:48] LABS: EGFR Non-African American 42.3 (>60)
[2017-10-31] MEDS: Mometasone/Formoter 200/5 MDI INH SCH ×2 (08:24→19:36)
[2017-10-31] MEDS: Tiotropium CAP.INH* CAP.INH/18 MCG (USE ORDER SET !) INH SCH (08:25)
[2017-10-31] MEDS: Gabapentin CAP(*) 100 MG PO SCH ×3 (09:38→20:57)
[2017-10-31] MEDS: Atorvastatin* 20 MG TAB PO SCH (09:39)
[2017-10-31] MEDS: Torsemide TAB* 20 MG PO SCH ×2 (09:39→20:59)
[2017-10-31] MEDS: Spironolactone TAB* 25 MG PO SCH (09:39)
[2017-10-31] MEDS: Diltiazem CD CAP* 180 MG PO SCH (09:40)
[2017-10-31] MEDS: Ferrous Sulfate TAB* 325 MG PO SCH (09:40)
[2017-10-31] MEDS: Famotidine TAB* 20 MG PO SCH (09:40)
[2017-10-31] MEDS: Carvedilol TAB* 25 MG PO SCH ×3 (09:40→21:26)
--- NOTE | 2017-10-31 14:52 | PN ---
Subjective Date of Service: 10/31/17 Interval History: Pt still feels very weak. no new complaints Objective Active Medications: Acetaminophen (Tylenol Tab*) 650 mg PO Q4H PRN PRN Reason: FEVER/PAIN Last Admin: 10/30/17 08:27 Dose: 650 mg Acetaminophen (Tylenol Supp*) 650 mg ND Q4H PRN PRN Reason: FEVER/PAIN Albuterol (Ventolin 2.5 Mg/3 Ml Neb.Lois*) 2.5 mg INH Q4H PRN PRN Reason: SOB/WHEEZING Alprazolam (Xanax Tab*) 0.5 mg PO TID PRN PRN Reason: ANXIETY Last Admin: 10/31/17 02:55 Dose: 0.5 mg Atorvastatin Calcium (Lipitor*) 20 mg PO DAILY [facility] Last Admin: 10/31/17 09:39 Dose: 20 mg Carvedilol (Coreg Tab*) 50 mg PO BID [facility] Last Admin: 10/31/17 09:40 Dose: 50 mg Cyclobenzaprine HCl (Flexeril Tab*) 10 mg PO TID PRN PRN Reason: PAIN Diltiazem HCl (Cardizem Cd Cap*) 180 mg PO DAILY [facility] Last Admin: 10/31/17 09:40 Dose: 180 mg Famotidine (Pepcid Tab*) 20 mg PO DAILY [facility] Last Admin: 10/31/17 09:40 Dose: 20 mg Ferrous Sulfate (Ferrous Sulfate Tab*) 325 mg PO DAILY [facility] Last Admin: 10/31/17 09:40 Dose: 325 mg Gabapentin (Neurontin Cap(*)) 200 mg PO TID [facility] Last Admin: 10/31/17 09:38 Dose: 200 mg Heparin Sodium (Porcine) (Heparin Flush Picc/Ml/Cvc(*)) 1 - 3 ml FLUSH 0600, 1800 [facility] PRN Reason: Protocol Last Admin: 10/31/17 05:10 Dose: 3 ml Cefepime HCl (Maxipime 1 Gm In Dextrose Duplex (*)) 1 gm in 50 mls @ 100 mls/ hr IV Q24H [facility] Last Admin: 10/30/17 20:10 Dose: 100 mls/hr Mometasone Furoate/Formoterol Fumar (Dulera 200/5 Mdi*) 2 puff INH BID [facility] Last Admin: 10/31/17 08:24 Dose: 2 puff Nicotine (Nicotine Patch 14 Mg/24 Hr*) 1 patch TRANSDERM DAILY PRN PRN Reason: CRAVINGS Oxycodone HCl (Roxycodone Tab*) 5 mg PO Q6H PRN PRN Reason: PAIN Last Admin: 10/31/17 09:39 Dose: 5 mg Pharmacy Profile Note (Nicotine Patch Removal Note*) 1 note PATCH OFF 2100 [facility] Last Admin: 10/30/17 20:21 Dose: Not Given Quetiapine Fumarate (Seroquel Tab*) 800 mg PO BEDTIME [facility] Last Admin: 10/30/17 20:12 Dose: 800 mg Spironolactone (Aldactone Tab*) 50 mg PO DAILY [facility] Last Admin: 10/31/17 09:39 Dose: 50 mg Tiotropium [place] (Spiriva Cap.Inh*) 1 cap INH DAILY [facility] Last Admin: 10/31/17 08:25 Dose: 1 cap Torsemide (Demadex*) 20 mg PO BID [facility] Last Admin: 10/31/17 09:39 Dose: 20 mg Vital Signs - 8 hr 10/31/17 10/31/17 10/31/17 07:51 08:00 09:38 Temperature 97.8 F Pulse Rate 91 Respiratory 26 18 18 Rate Blood Pressure 97/77 (mmHg) O2 Sat by Pulse 100 Oximetry 10/31/17 10/31/17 10/31/17 09:39 11:11 12:32 Temperature 98.6 F Pulse Rate 91 Respiratory 18 18 22 Rate Blood Pressure 111/72 (mmHg) O2 Sat by Pulse 97 Oximetry Oxygen Devices in Use Now: Nasal Cannula Appearance: 62 yo F in nAD, aAOx3, poor historian Eyes: No Scleral Icterus, PERRLA Ears/Nose/Mouth/Throat: NL Teeth, Lips, Gums, Mucous Membranes Moist Neck: NL Appearance and Movements; NL JVP, Trachea Midline Respiratory: Symmetrical Chest Expansion and Respiratory Effort, - - crackles at b/l bases Cardiovascular: - - irregular Abdominal: NL Sounds; No Tenderness; No Distention, No Hepatosplenomegaly Lymphatic: No Cervical Adenopathy Extremities: No Clubbing, Cyanosis, - - +1 pitting edema b/l Skin: No Nodules or Sclerosis, - - diffuse ecchymoses b/l legs Neurological: Alert and Oriented x 3, NL Muscle Strength and Tone, - - generalized weakness no focal weakness Result Diagrams: 10/31/17 04:57 10/31/17 04:57 Additional Lab and Data: Lab Results 10/25/17 10/25/17 10/25/17 Range/Units 09:41 09:41 09:41 WBC 3.5 (3.5-10.8) 10^3/ul RBC 3.49 L (4.0-5.4) 10^6/ul Hgb 9.0 L (12.0-16.0) g/dl Hct 28 L (35-47) % MCV 81 (80-97) fL MCH 26 L (27-31) pg MCHC 32 (31-36) g/dl RDW 20 H (10.5-15) % Plt Count 137 L (150-450) 10^3/ul MPV 11.5 H (7.4-10.4) um3 Neut % (Auto) Not Reportable Lymph % (Auto) Not Reportable Tama % (Auto) Not Reportable Eos % (Auto) Not Reportable Baso % (Auto) Not Reportable Absolute Neuts (auto) Not Reportable Absolute Lymphs (auto) Not Reportable Absolute Monos (auto) Not Reportable Absolute Eos (auto) Not Reportable Absolute Basos (auto) Not Reportable Absolute Nucleated RBC Not Reportable Immature Gran % 2 (0-9) % Neutrophils % 21 L (38-83) % Band Neutrophils % 2 (0-8) % Lymphocytes % 58 H (25-47) % Monocytes % 17 H (0-7) % Eosinophils % 0 (0-6) % Basophils % 2 (0-2) % Nucleated RBC % Not Reportable Abs Neuts (Manual) 0.7 L* (1.5-7.7) 10^3/ul Abs Lymphs (Manual) 2.0 (1.0-4.8) 10^3/ul Abs Monocytes (Manual) 0.6 (0-0.8) 10^3/ul Absolute Eos (Manual) 0 (0-0.6) 10^3/ul Abs Basophils (Manual) 0.1 (0-0.2) 10^3/ul Normal RBC Morphology Not Reportable Hypochromasia 1+ Microcytosis 1+ INR (Anticoag Therapy) (0.77-1.02) D-Dimer, Quantitative (Less Than 230) ng/mL ABG pH (7.35-7.45) ABG pCO2 (35-45) mmHg ABG pO2 (80-100) mmHg ABG HCO3 (19-31) mmol/L ABG O2 Saturation (95-98) % ABG Base Excess (-2.0-2.0) Sodium 140 (139-145) mmol/L Potassium 6.5 H* (3.5-5.0) mmol/L Chloride 101 (101-111) mmol/L Carbon Dioxide 31 (22-32) mmol/L Anion Gap 8 (2-11) mmol/L BUN 113 H (6-24) mg/dL Creatinine 5.33 H (0.51-0.95) mg/dL Est GFR ( Amer) 10.5 (>60) Est GFR (Non-Af Amer) 8.1 (>60) BUN/Creatinine Ratio 21.2 H (8-20) Glucose 96 (70-100) mg/dL Lactic Acid 0.8 (0.5-2.0) mmol/L Calcium 9.1 (8.6-10.3) mg/dL Phosphorus 6.8 H (2.5-5.0) mg/dL Magnesium 2.3 (1.9-2.7) mg/dL Total Bilirubin 0.50 (0.2-1.0) mg/dL AST 35 (13-39) U/L ALT 25 (7-52) U/L Alkaline Phosphatase 46 (34-104) U/L Total Creatine Kinase Pending Troponin I 0.04 H* (<0.04) ng/mL C-Reactive Protein 168.67 H (< 5.00) mg/L B-Natriuretic Peptide ( - 100) pg/mL Total Protein 6.2 L (6.4-8.9) g/dL Albumin 3.3 (3.2-5.2) g/dL Globulin 2.9 (2-4) g/dL Albumin/Globulin Ratio 1.1 (1-3) TSH Pending Blood Type Antibody Screen 10/25/17 10/25/17 10/25/17 Range/Units 09:41 09:41 09:41 WBC (3.5-10.8) 10^3/ul RBC (4.0-5.4) 10^6/ul Hgb (12.0-16.0) g/dl Hct (35-47) % MCV (80-97) fL MCH (27-31) pg MCHC (31-36) g/dl RDW (10.5-15) % Plt Count (150-450) 10^3/ul MPV (7.4-10.4) um3 Neut % (Auto) Lymph % (Auto) Tama % (Auto) Eos % (Auto) Baso % (Auto) Absolute Neuts (auto) Absolute Lymphs (auto) Absolute Monos (auto) Absolute Eos (auto) Absolute Basos (auto) Absolute Nucleated RBC Immature Gran % (0-9) % Neutrophils % (38-83) % Band Neutrophils % (0-8) % Lymphocytes % (25-47) % Monocytes % (0-7) % Eosinophils % (0-6) % Basophils % (0-2) % Nucleated RBC % Abs Neuts (Manual) (1.5-7.7) 10^3/ul Abs Lymphs (Manual) (1.0-4.8) 10^3/ul Abs Monocytes (Manual) (0-0.8) 10^3/ul Absolute Eos (Manual) (0-0.6) 10^3/ul Abs Basophils (Manual) (0-0.2) 10^3/ul Normal RBC Morphology Hypochromasia Microcytosis INR (Anticoag Therapy) 5.64 H* (0.77-1.02) D-Dimer, Quantitative < 200 (Less Than 230) ng/mL ABG pH (7.35-7.45) ABG pCO2 (35-45) mmHg ABG pO2 (80-100) mmHg ABG HCO3 (19-31) mmol/L ABG O2 Saturation (95-98) % ABG Base Excess (-2.0-2.0) Sodium (139-145) mmol/L Potassium (3.5-5.0) mmol/L Chloride (101-111) mmol/L Carbon Dioxide (22-32) mmol/L Anion Gap (2-11) mmol/L BUN (6-24) mg/dL Creatinine (0.51-0.95) mg/dL Est GFR ( Amer) (>60) Est GFR (Non-Af Amer) (>60) BUN/Creatinine Ratio (8-20) Glucose (70-100) mg/dL Lactic Acid (0.5-2.0) mmol/L Calcium (8.6-10.3) mg/dL Phosphorus (2.5-5.0) mg/dL Magnesium (1.9-2.7) mg/dL Total Bilirubin (0.2-1.0) mg/dL AST (13-39) U/L ALT (7-52) U/L Alkaline Phosphatase (34-104) U/L Total Creatine Kinase Troponin I (<0.04) ng/mL C-Reactive Protein (< 5.00) mg/L B-Natriuretic Peptide 116 H ( - 100) pg/mL Total Protein (6.4-8.9) g/dL Albumin (3.2-5.2) g/dL Globulin (2-4) g/dL Albumin/Globulin Ratio (1-3) TSH Blood Type O Positive Antibody Screen Negative 10/25/17 Range/Units 10:05 WBC (3.5-10.8) 10^3/ul RBC (4.0-5.4) 10^6/ul Hgb (12.0-16.0) g/dl Hct (35-47) % MCV (80-97) fL MCH (27-31) pg MCHC (31-36) g/dl RDW (10.5-15) % Plt Count (150-450) 10^3/ul MPV (7.4-10.4) um3 Neut % (Auto) Lymph % (Auto) [place] % (Auto) Eos % (Auto) Baso % (Auto) Absolute Neuts (auto) Absolute Lymphs (auto) Absolute Monos (auto) Absolute Eos (auto) Absolute Basos (auto) Absolute Nucleated RBC Immature Gran % (0-9) % Neutrophils % (38-83) % Band Neutrophils % (0-8) % Lymphocytes % (25-47) % Monocytes % (0-7) % Eosinophils % (0-6) % Basophils % (0-2) % Nucleated RBC % Abs Neuts (Manual) (1.5-7.7) 10^3/ul Abs Lymphs (Manual) (1.0-4.8) 10^3/ul Abs Monocytes (Manual) (0-0.8) 10^3/ul Absolute Eos (Manual) (0-0.6) 10^3/ul Abs Basophils (Manual) (0-0.2) 10^3/ul Normal RBC Morphology Hypochromasia Microcytosis INR (Anticoag Therapy) (0.77-1.02) D-Dimer, Quantitative (Less Than 230) ng/mL ABG pH 7.32 L (7.35-7.45) ABG pCO2 61 H (35-45) mmHg ABG pO2 85 (80-100) mmHg ABG HCO3 28.2 (19-31) mmol/L ABG O2 Saturation 97.0 (95-98) % ABG Base Excess 4.3 H (-2.0-2.0) Sodium (139-145) mmol/L Potassium (3.5-5.0) mmol/L Chloride (101-111) mmol/L Carbon Dioxide (22-32) mmol/L Anion Gap (2-11) mmol/L BUN (6-24) mg/dL Creatinine (0.51-0.95) mg/dL Est GFR ( Amer) (>60) Est GFR (Non-Af Amer) (>60) BUN/Creatinine Ratio (8-20) Glucose (70-100) mg/dL Lactic Acid (0.5-2.0) mmol/L Calcium (8.6-10.3) mg/dL Phosphorus (2.5-5.0) mg/dL Magnesium (1.9-2.7) mg/dL Total Bilirubin (0.2-1.0) mg/dL AST (13-39) U/L ALT (7-52) U/L Alkaline Phosphatase (34-104) U/L Total Creatine Kinase Troponin I (<0.04) ng/mL C-Reactive Protein (< 5.00) mg/L B-Natriuretic Peptide ( - 100) pg/mL Total Protein (6.4-8.9) g/dL Albumin (3.2-5.2) g/dL Globulin (2-4) g/dL Albumin/Globulin Ratio (1-3) TSH Blood Type Antibody Screen Microbiology and Other Data: Microbiology 10/26/17 13:19 Aerobic Blood Culture - Preliminary Blood Venous No Growth Day 3 Anaerobic Blood Culture - Preliminary No Growth Day 3 10/26/17 12:55 Aerobic Blood Culture - Preliminary Blood Line No Growth Day 3 Anaerobic Blood Culture - Preliminary No Growth Day 3 10/25/17 13:20 Aerobic Blood Culture - Preliminary Blood Venous No Growth Day 3 Anaerobic Blood Culture - Preliminary No Growth Day 3 10/25/17 14:34 Aerobic Blood Culture - Preliminary Blood Venous No Growth Day 3 Anaerobic Blood Culture - Preliminary No Growth Day 3 10/26/17 12:55 Gram Stain - Final Sputum Sputum Culture - Final Normal Ana Cristina 10/25/17 12:44 Nasal Screen MRSA (PCR)(JOAO) - Final Nasal Mrsa Not Detected Assess/Plan/Problems-Billing Assessment: Mrs. 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 Resolved (2) Septic shock Comment: due to pneumonia resolved, was on pressors in ICU. so far cx neg cont Cefepime, Vanc discontinued (3) Acute exacerbation of CHF (congestive heart failure) Comment: EF 35% in 06/2017 cont demadex, aldactone at home dose. will tx with another dose of Lasix IV (4) Acute respiratory failure with hypoxemia Comment: back to baseline 4 L, at STR was on 4 L (5) Acute kidney injury Comment: due to sepvere sepsis-ATN creat back to baseline CKD stage 3 (6) History of pulmonary embolism Comment: coumadin will be restarted today (7) Afib Comment: controlled on cardizem and coreg (8) Mantle cell lymphoma Comment: Ibrutinib on hold while admitted; needs to be resumed upon discharge (9) COPD (chronic obstructive pulmonary disease) Current Visit: No Comment: Pt has no wheezing on exam today. Continue inhalers (10) FRANCIS (obstructive sleep apnea) Comment: Continue CPAP. (11) Anemia Comment: normocytic, Hb lower today at 7.4 related to multiple ecchymoses after a fall prior to admission as well as mantle cell lymphoma and baseline chronic anemia stool guaiac neg will start iron supplement, will d/w oncology in aM (12) DVT prophylaxis Comment: coumadin Status and Disposition: inpatient
[2017-10-31] MEDS ORDERED: Furosemide IV* 10 MG/ML VIAL (40 MG) IV ONE (14:59)
[2017-10-31] MEDS: Warfarin TAB(*) 4 MG PO SCH (15:35)
[2017-10-31] MEDS: Cefepime 1 GM in Dextrose(*) 1 GM/50 ML BAG IV SCH (20:57)
[2017-10-31] MEDS: QUEtiapine TAB* 100 MG PO SCH (20:58)
[2017-10-31] MEDS: Nicotine Patch Removal NOTE PATCH OFF SCH (20:59)
--- NOTE | 2017-10-31 21:15 | PN ---
Progress Note - Progress Note Date of Service: 10/31/17 Note: Held evening coreg dose due to SPB 92
[2017-11-01] MEDS: Cyclobenzaprine TAB* 10 MG PO PRN (00:10)
[2017-11-01 05:33] LABS: Hematocrit 23 % (35-47); Hemoglobin 7.3 g/dl (12.0-16.0); Mean Corpuscular HGB Conc 32 g/dl (31-36); Mean Corpuscular Hemoglobin 26 pg (27-31); Mean Corpuscular Volume 80 fL (80-97); Mean Platelet Volume 9.7 um3 (7.4-10.4); Platelet Count 135 10^3/ul (150-450); Red Blood Count 2.86 10^6/ul (4.0-5.4); Red Cell Distribution Width 18 % (10.5-15); White Blood Count 6.3 10^3/ul (3.5-10.8)
[2017-11-01 05:42] LABS: INR 2.11 (0.77-1.02)
[2017-11-01 05:49] LABS: EGFR Non-African American 35.7 (>60)
[2017-11-01] MEDS: Carvedilol TAB* 25 MG PO SCH ×2 (08:39→21:38)
[2017-11-01] MEDS: Torsemide TAB* 20 MG PO SCH ×2 (08:39→20:24)
[2017-11-01] MEDS: Gabapentin CAP(*) 100 MG PO SCH ×3 (08:39→20:25)
[2017-11-01] MEDS: Famotidine TAB* 20 MG PO SCH (08:40)
[2017-11-01] MEDS: Ferrous Sulfate TAB* 325 MG PO SCH (08:40)
[2017-11-01] MEDS: Atorvastatin* 20 MG TAB PO SCH (08:40)
[2017-11-01] MEDS: Spironolactone TAB* 25 MG PO SCH (08:40)
[2017-11-01] MEDS: Diltiazem CD CAP* 180 MG PO SCH (08:40)
--- NOTE | 2017-11-01 11:22 | PN ---
Progress Note - Progress Note Date of Service: 11/01/17 SOAP: Subjective: []Still feeling very weak. Not able to do much, breathing remains poor. She feels ill. has many concerns about why she is weak. She had been doing poorly prior to the pnemoinia and he is concerned about quality of life even after she recovers from this episode. Cancer History: MCL. First treated in 2012 with bendamustine and rituximab. Reassurance early 2017 and started on ibrutinib. Acetaminophen (Tylenol Tab*) 650 mg PO Q4H PRN PRN Reason: FEVER/PAIN Last Admin: 10/30/17 08:27 Dose: 650 mg Acetaminophen (Tylenol Supp*) 650 mg MD Q4H PRN PRN Reason: FEVER/PAIN Albuterol (Ventolin 2.5 Mg/3 Ml Neb.Lois*) 2.5 mg INH Q4H PRN PRN Reason: SOB/WHEEZING Last Admin: 10/31/17 19:36 Dose: 2.5 mg Alprazolam (Xanax Tab*) 0.5 mg PO TID PRN PRN Reason: ANXIETY Last Admin: 10/31/17 20:59 Dose: 0.5 mg Atorvastatin Calcium (Lipitor*) 20 mg PO DAILY [facility] Last Admin: 11/01/17 08:40 Dose: 20 mg Carvedilol (Coreg Tab*) 50 mg PO BID [facility] Last Admin: 11/01/17 08:39 Dose: 50 mg Cyclobenzaprine HCl (Flexeril Tab*) 10 mg PO TID PRN PRN Reason: PAIN Last Admin: 11/01/17 00:10 Dose: 10 mg Diltiazem HCl (Cardizem Cd Cap*) 180 mg PO DAILY [facility] Last Admin: 11/01/17 08:40 Dose: 180 mg Famotidine (Pepcid Tab*) 20 mg PO DAILY [facility] Last Admin: 11/01/17 08:40 Dose: 20 mg Ferrous Sulfate (Ferrous Sulfate Tab*) 325 mg PO DAILY [facility] Last Admin: 11/01/17 08:40 Dose: 325 mg Gabapentin (Neurontin Cap(*)) 200 mg PO TID [facility] Last Admin: 11/01/17 08:39 Dose: 200 mg Heparin Sodium (Porcine) (Heparin Flush Picc/Ml/Cvc(*)) 1 - 3 ml FLUSH 0600, 1800 [facility] PRN Reason: Protocol Last Admin: 11/01/17 05:15 Dose: 3 ml Cefepime HCl (Maxipime 1 Gm In Dextrose Duplex (*)) 1 gm in 50 mls @ 100 mls/ hr IV Q24H [facility] Last Admin: 10/31/17 20:57 Dose: 100 mls/hr Mometasone Furoate/Formoterol Fumar (Dulera 200/5 Mdi*) 2 puff INH BID [facility] Last Admin: 10/31/17 19:36 Dose: 2 puff Nicotine (Nicotine Patch 14 Mg/24 Hr*) 1 patch TRANSDERM DAILY PRN PRN Reason: CRAVINGS Oxycodone HCl (Roxycodone Tab*) 5 mg PO Q6H PRN PRN Reason: PAIN Last Admin: 10/31/17 09:39 Dose: 5 mg Pharmacy Profile Note (Nicotine Patch Removal Note*) 1 note PATCH OFF 2100 [facility] Last Admin: 10/31/17 20:59 Dose: Not Given Quetiapine Fumarate (Seroquel Tab*) 800 mg PO BEDTIME [facility] Last Admin: 10/31/17 20:58 Dose: 800 mg Spironolactone (Aldactone Tab*) 50 mg PO DAILY [facility] Last Admin: 11/01/17 08:40 Dose: 50 mg Tiotropium [place] (Spiriva Cap.Inh*) 1 cap INH DAILY [facility] Last Admin: 10/31/17 08:25 Dose: 1 cap Torsemide (Demadex*) 20 mg PO BID [facility] Last Admin: 11/01/17 08:39 Dose: 20 mg Warfarin Sodium (Coumadin Tab(*)) 8 mg PO DAILY@1700 [facility] PRN Reason: Protocol Last Admin: 10/31/17 15:35 Dose: 8 mg Objective: [] Vital Signs Temp Pulse Resp BP Pulse Ox 98.6 F 96 20 84/53 93 11/01/17 07:44 11/01/17 07:44 11/01/17 08:39 11/01/17 07:44 11/01/17 07:44 HEENT - mucosa pale. 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 She has a history of mantel cell lymphoma and was started on oral therapy in early [place] for recurrent disease. Had been struggling with fatigue and weakness at baseline. Now status post ICU for severe sepsis and septic shock due to pneumonia. Met with patient and family today regarding several issues Plan: []1. Anemia. Contribution of acute inflammation, cancer therapy, CRI. No clear evidence of bleeding or iron deficiency. Can transfuse today. Epogen is a consideration but has increased risk of thrombosis is setting of malignancy. Check erythropoietin level. 2. MCL. Hold ibrutinib for time being and will re-start as out patient. 3. Patient and family with concerns abut QOL and strength on and off chemotherapy. I have not seen her in clinic but Dr. Jc is rounding tomorrow and I will relay their concerns. face time 35 min > 50% of time spent counseling.
[2017-11-01] MEDS: Mometasone/Formoter 200/5 MDI INH SCH ×2 (12:47→20:14)
[2017-11-01] MEDS: Tiotropium CAP.INH* CAP.INH/18 MCG (USE ORDER SET !) INH SCH (12:47)
[2017-11-01] MEDS: oxyCODONE TAB* 5 MG TAB PO PRN (14:10)
[2017-11-01] MEDS ORDERED: Furosemide IV* 10 MG/ML 2 ML VIAL (20 MG) IV ONE (14:55)
--- NOTE | 2017-11-01 17:36 | PN ---
Subjective Date of Service: 11/01/17 Interval History: Pt feels "much better". Saw DR. Lieberman and plans to talk with DR. Jc in AM. Objective Active Medications: Acetaminophen (Tylenol Tab*) 650 mg PO Q4H PRN PRN Reason: FEVER/PAIN Last Admin: 10/30/17 08:27 Dose: 650 mg Acetaminophen (Tylenol Supp*) 650 mg IN Q4H PRN PRN Reason: FEVER/PAIN Albuterol (Ventolin 2.5 Mg/3 Ml Neb.Lois*) 2.5 mg INH Q4H PRN PRN Reason: SOB/WHEEZING Last Admin: 10/31/17 19:36 Dose: 2.5 mg Alprazolam (Xanax Tab*) 0.5 mg PO TID PRN PRN Reason: ANXIETY Last Admin: 10/31/17 20:59 Dose: 0.5 mg Atorvastatin Calcium (Lipitor*) 20 mg PO DAILY [facility] Last Admin: 11/01/17 08:40 Dose: 20 mg Carvedilol (Coreg Tab*) 50 mg PO BID [facility] Cyclobenzaprine HCl (Flexeril Tab*) 10 mg PO TID PRN PRN Reason: PAIN Last Admin: 11/01/17 00:10 Dose: 10 mg Diltiazem HCl (Cardizem Cd Cap*) 180 mg PO DAILY [facility] Last Admin: 11/01/17 08:40 Dose: 180 mg Famotidine (Pepcid Tab*) 20 mg PO DAILY [facility] Last Admin: 11/01/17 08:40 Dose: 20 mg Ferrous Sulfate (Ferrous Sulfate Tab*) 325 mg PO DAILY [facility] Last Admin: 11/01/17 08:40 Dose: 325 mg Gabapentin (Neurontin Cap(*)) 200 mg PO TID [facility] Last Admin: 11/01/17 14:09 Dose: 200 mg Heparin Sodium (Porcine) (Heparin Flush Picc/Ml/Cvc(*)) 1 - 3 ml FLUSH 0600, 1800 [facility] PRN Reason: Protocol Last Admin: 11/01/17 05:15 Dose: 3 ml Cefepime HCl (Maxipime 1 Gm In Dextrose Duplex (*)) 1 gm in 50 mls @ 100 mls/ hr IV Q24H [facility] Last Admin: 10/31/17 20:57 Dose: 100 mls/hr Mometasone Furoate/Formoterol Fumar (Dulera 200/5 Mdi*) 2 puff INH BID [facility] Last Admin: 11/01/17 12:47 Dose: Not Given Nicotine (Nicotine Patch 14 Mg/24 Hr*) 1 patch TRANSDERM DAILY PRN PRN Reason: CRAVINGS Oxycodone HCl (Roxycodone Tab*) 5 mg PO Q6H PRN PRN Reason: PAIN Last Admin: 11/01/17 14:10 Dose: 5 mg Pharmacy Profile Note (Nicotine Patch Removal Note*) 1 note PATCH OFF 2100 [facility] Last Admin: 10/31/17 20:59 Dose: Not Given Quetiapine Fumarate (Seroquel Tab*) 800 mg PO BEDTIME [facility] Last Admin: 10/31/17 20:58 Dose: 800 mg Spironolactone (Aldactone Tab*) 50 mg PO DAILY [facility] Last Admin: 11/01/17 08:40 Dose: 50 mg Tiotropium [place] (Spiriva Cap.Inh*) 1 cap INH DAILY [facility] Last Admin: 11/01/17 12:47 Dose: Not Given Torsemide (Demadex*) 20 mg PO BID [facility] Last Admin: 11/01/17 08:39 Dose: 20 mg Warfarin Sodium (Coumadin Tab(*)) 8 mg PO DAILY@1700 [facility] PRN Reason: Protocol Last Admin: 10/31/17 15:35 Dose: 8 mg Vital Signs - 8 hr 11/01/17 11/01/17 14:09 14:10 Respiratory 16 18 Rate Oxygen Devices in Use Now: Nasal Cannula Appearance: 62 yo F in nAD, AAOx3 Eyes: No Scleral Icterus, PERRLA Ears/Nose/Mouth/Throat: NL Teeth, Lips, Gums, Mucous Membranes Moist Neck: NL Appearance and Movements; NL JVP, Trachea Midline Respiratory: Symmetrical Chest Expansion and Respiratory Effort, Clear to Auscultation Cardiovascular: - - irregular Abdominal: NL Sounds; No Tenderness; No Distention, No Hepatosplenomegaly Lymphatic: No Cervical Adenopathy Extremities: No Clubbing, Cyanosis, - - +1 pitting pedal edema b/l Skin: No Nodules or Sclerosis, - - diffuse ecchymoses b/l LE's Neurological: Alert and Oriented x 3, NL Muscle Strength and Tone Result Diagrams: 11/01/17 05:00 11/01/17 05:00 Additional Lab and Data: Lab Results 10/25/17 10/25/17 10/25/17 Range/Units 09:41 09:41 09:41 WBC 3.5 (3.5-10.8) 10^3/ul RBC 3.49 L (4.0-5.4) 10^6/ul Hgb 9.0 L (12.0-16.0) g/dl Hct 28 L (35-47) % MCV 81 (80-97) fL MCH 26 L (27-31) pg MCHC 32 (31-36) g/dl RDW 20 H (10.5-15) % Plt Count 137 L (150-450) 10^3/ul MPV 11.5 H (7.4-10.4) um3 Neut % (Auto) Not Reportable Lymph % (Auto) Not Reportable [place] % (Auto) Not Reportable Eos % (Auto) Not Reportable Baso % (Auto) Not Reportable Absolute Neuts (auto) Not Reportable Absolute Lymphs (auto) Not Reportable Absolute Monos (auto) Not Reportable Absolute Eos (auto) Not Reportable Absolute Basos (auto) Not Reportable Absolute Nucleated RBC Not Reportable Immature Gran % 2 (0-9) % Neutrophils % 21 L (38-83) % Band Neutrophils % 2 (0-8) % Lymphocytes % 58 H (25-47) % Monocytes % 17 H (0-7) % Eosinophils % 0 (0-6) % Basophils % 2 (0-2) % Nucleated RBC % Not Reportable Abs Neuts (Manual) 0.7 L* (1.5-7.7) 10^3/ul Abs Lymphs (Manual) 2.0 (1.0-4.8) 10^3/ul Abs Monocytes (Manual) 0.6 (0-0.8) 10^3/ul Absolute Eos (Manual) 0 (0-0.6) 10^3/ul Abs Basophils (Manual) 0.1 (0-0.2) 10^3/ul Normal RBC Morphology Not Reportable Hypochromasia 1+ Microcytosis 1+ INR (Anticoag Therapy) (0.77-1.02) D-Dimer, Quantitative (Less Than 230) ng/mL ABG pH (7.35-7.45) ABG pCO2 (35-45) mmHg ABG pO2 (80-100) mmHg ABG HCO3 (19-31) mmol/L ABG O2 Saturation (95-98) % ABG Base Excess (-2.0-2.0) Sodium 140 (139-145) mmol/L Potassium 6.5 H* (3.5-5.0) mmol/L Chloride 101 (101-111) mmol/L Carbon Dioxide 31 (22-32) mmol/L Anion Gap 8 (2-11) mmol/L BUN 113 H (6-24) mg/dL Creatinine 5.33 H (0.51-0.95) mg/dL Est GFR ( Amer) 10.5 (>60) Est GFR (Non-Af Amer) 8.1 (>60) BUN/Creatinine Ratio 21.2 H (8-20) Glucose 96 (70-100) mg/dL Lactic Acid 0.8 (0.5-2.0) mmol/L Calcium 9.1 (8.6-10.3) mg/dL Phosphorus 6.8 H (2.5-5.0) mg/dL Magnesium 2.3 (1.9-2.7) mg/dL Total Bilirubin 0.50 (0.2-1.0) mg/dL AST 35 (13-39) U/L ALT 25 (7-52) U/L Alkaline Phosphatase 46 (34-104) U/L Total Creatine Kinase Pending Troponin I 0.04 H* (<0.04) ng/mL C-Reactive Protein 168.67 H (< 5.00) mg/L B-Natriuretic Peptide ( - 100) pg/mL Total Protein 6.2 L (6.4-8.9) g/dL Albumin 3.3 (3.2-5.2) g/dL Globulin 2.9 (2-4) g/dL Albumin/Globulin Ratio 1.1 (1-3) TSH Pending Blood Type Antibody Screen 10/25/17 10/25/17 10/25/17 Range/Units 09:41 09:41 09:41 WBC (3.5-10.8) 10^3/ul RBC (4.0-5.4) 10^6/ul Hgb (12.0-16.0) g/dl Hct (35-47) % MCV (80-97) fL MCH (27-31) pg MCHC (31-36) g/dl RDW (10.5-15) % Plt Count (150-450) 10^3/ul MPV (7.4-10.4) um3 Neut % (Auto) Lymph % (Auto) [place] % (Auto) Eos % (Auto) Baso % (Auto) Absolute Neuts (auto) Absolute Lymphs (auto) Absolute Monos (auto) Absolute Eos (auto) Absolute Basos (auto) Absolute Nucleated RBC Immature Gran % (0-9) % Neutrophils % (38-83) % Band Neutrophils % (0-8) % Lymphocytes % (25-47) % Monocytes % (0-7) % Eosinophils % (0-6) % Basophils % (0-2) % Nucleated RBC % Abs Neuts (Manual) (1.5-7.7) 10^3/ul Abs Lymphs (Manual) (1.0-4.8) 10^3/ul Abs Monocytes (Manual) (0-0.8) 10^3/ul Absolute Eos (Manual) (0-0.6) 10^3/ul Abs Basophils (Manual) (0-0.2) 10^3/ul Normal RBC Morphology Hypochromasia Microcytosis INR (Anticoag Therapy) 5.64 H* (0.77-1.02) D-Dimer, Quantitative < 200 (Less Than 230) ng/mL ABG pH (7.35-7.45) ABG pCO2 (35-45) mmHg ABG pO2 (80-100) mmHg ABG HCO3 (19-31) mmol/L ABG O2 Saturation (95-98) % ABG Base Excess (-2.0-2.0) Sodium (139-145) mmol/L Potassium (3.5-5.0) mmol/L Chloride (101-111) mmol/L Carbon Dioxide (22-32) mmol/L Anion Gap (2-11) mmol/L BUN (6-24) mg/dL Creatinine (0.51-0.95) mg/dL Est GFR ( Amer) (>60) Est GFR (Non-Af Amer) (>60) BUN/Creatinine Ratio (8-20) Glucose (70-100) mg/dL Lactic Acid (0.5-2.0) mmol/L Calcium (8.6-10.3) mg/dL Phosphorus (2.5-5.0) mg/dL Magnesium (1.9-2.7) mg/dL Total Bilirubin (0.2-1.0) mg/dL AST (13-39) U/L ALT (7-52) U/L Alkaline Phosphatase (34-104) U/L Total Creatine Kinase Troponin I (<0.04) ng/mL C-Reactive Protein (< 5.00) mg/L B-Natriuretic Peptide 116 H ( - 100) pg/mL Total Protein (6.4-8.9) g/dL Albumin (3.2-5.2) g/dL Globulin (2-4) g/dL Albumin/Globulin Ratio (1-3) TSH Blood Type O Positive Antibody Screen Negative 10/25/17 Range/Units 10:05 WBC (3.5-10.8) 10^3/ul RBC (4.0-5.4) 10^6/ul Hgb (12.0-16.0) g/dl Hct (35-47) % MCV (80-97) fL MCH (27-31) pg MCHC (31-36) g/dl RDW (10.5-15) % Plt Count (150-450) 10^3/ul MPV (7.4-10.4) um3 Neut % (Auto) Lymph % (Auto) [place] % (Auto) Eos % (Auto) Baso % (Auto) Absolute Neuts (auto) Absolute Lymphs (auto) Absolute Monos (auto) Absolute Eos (auto) Absolute Basos (auto) Absolute Nucleated RBC Immature Gran % (0-9) % Neutrophils % (38-83) % Band Neutrophils % (0-8) % Lymphocytes % (25-47) % Monocytes % (0-7) % Eosinophils % (0-6) % Basophils % (0-2) % Nucleated RBC % Abs Neuts (Manual) (1.5-7.7) 10^3/ul Abs Lymphs (Manual) (1.0-4.8) 10^3/ul Abs Monocytes (Manual) (0-0.8) 10^3/ul Absolute Eos (Manual) (0-0.6) 10^3/ul Abs Basophils (Manual) (0-0.2) 10^3/ul Normal RBC Morphology Hypochromasia Microcytosis INR (Anticoag Therapy) (0.77-1.02) D-Dimer, Quantitative (Less Than 230) ng/mL ABG pH 7.32 L (7.35-7.45) ABG pCO2 61 H (35-45) mmHg ABG pO2 85 (80-100) mmHg ABG HCO3 28.2 (19-31) mmol/L ABG O2 Saturation 97.0 (95-98) % ABG Base Excess 4.3 H (-2.0-2.0) Sodium (139-145) mmol/L Potassium (3.5-5.0) mmol/L Chloride (101-111) mmol/L Carbon Dioxide (22-32) mmol/L Anion Gap (2-11) mmol/L BUN (6-24) mg/dL Creatinine (0.51-0.95) mg/dL Est GFR ( Amer) (>60) Est GFR (Non-Af Amer) (>60) BUN/Creatinine Ratio (8-20) Glucose (70-100) mg/dL Lactic Acid (0.5-2.0) mmol/L Calcium (8.6-10.3) mg/dL Phosphorus (2.5-5.0) mg/dL Magnesium (1.9-2.7) mg/dL Total Bilirubin (0.2-1.0) mg/dL AST (13-39) U/L ALT (7-52) U/L Alkaline Phosphatase (34-104) U/L Total Creatine Kinase Troponin I (<0.04) ng/mL C-Reactive Protein (< 5.00) mg/L B-Natriuretic Peptide ( - 100) pg/mL Total Protein (6.4-8.9) g/dL Albumin (3.2-5.2) g/dL Globulin (2-4) g/dL Albumin/Globulin Ratio (1-3) TSH Blood Type Antibody Screen Microbiology and Other Data: Microbiology 10/26/17 13:19 Aerobic Blood Culture - Preliminary Blood Venous No Growth Day 3 Anaerobic Blood Culture - Preliminary No Growth Day 3 10/26/17 12:55 Aerobic Blood Culture - Preliminary Blood Line No Growth Day 3 Anaerobic Blood Culture - Preliminary No Growth Day 3 10/25/17 13:20 Aerobic Blood Culture - Preliminary Blood Venous No Growth Day 3 Anaerobic Blood Culture - Preliminary No Growth Day 3 10/25/17 14:34 Aerobic Blood Culture - Preliminary Blood Venous No Growth Day 3 Anaerobic Blood Culture - Preliminary No Growth Day 3 10/26/17 12:55 Gram Stain - Final Sputum Sputum Culture - Final Normal Ana Cristina 10/25/17 12:44 Nasal Screen MRSA (PCR)(JOAO) - Final Nasal Mrsa Not Detected Assess/Plan/Problems-Billing Assessment: Mrs. 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 Resolved (2) Septic shock Comment: due to pneumonia resolved, was on pressors in ICU. so far cx neg cont Cefepime, Vanc discontinued (3) Acute exacerbation of CHF (congestive heart failure) Comment: EF 35% in 06/2017, 35-40% on 10/25/17 cont demadex, aldactone at home dose. treated with intermittent IV Lasix in the past 2-3 days. Due to transfusion of PRBC today will tx with Lasix 20 mg IV x1 post transfusion (4) Acute respiratory failure with hypoxemia Comment: back to baseline 4 L, at STR was on 4 L (5) Acute kidney injury Comment: due to severe sepsis-ATN creat back to baseline CKD stage 3 (6) History of pulmonary embolism Comment: coumadin restarted on 10/31/17, INR therapeutic today (7) Afib Comment: controlled on cardizem and coreg (8) Mantle cell lymphoma Comment: Ibrutinib on hold while admitted; needs to be resumed upon discharge (9) COPD (chronic obstructive pulmonary disease) Current Visit: No Comment: Pt has no wheezing on exam today. Continue inhalers (10) FRANCIS (obstructive sleep apnea) Comment: Continue CPAP. (11) Anemia Comment: normocytic, Hb lower today at 7.3. will transfuse as per onc recommendations. related to multiple ecchymoses after a fall prior to admission as well as mantle cell lymphoma and baseline chronic anemia stool guaiac neg started iron supplement (12) DVT prophylaxis Comment: coumadin Status and Disposition: inpatient
[2017-11-01] MEDS: Warfarin TAB(*) 4 MG PO SCH (18:49)
[2017-11-01] MEDS: ALPRAZolam TAB* 0.5 MG PO PRN (18:53)
[2017-11-01] MEDS: QUEtiapine TAB* 100 MG PO SCH (20:25)
[2017-11-01] MEDS: Cefepime 1 GM in Dextrose(*) 1 GM/50 ML BAG IV SCH (20:25)
[2017-11-01] MEDS: Nicotine Patch Removal NOTE PATCH OFF SCH (20:31)
[2017-11-02] MEDS: Cyclobenzaprine TAB* 10 MG PO PRN ×3 (01:59→20:33)
[2017-11-02] MEDS: oxyCODONE TAB* 5 MG TAB PO PRN ×3 (01:59→20:31)
[2017-11-02 04:55] LABS: ABS Basophils 0 10^3/ul (0-0.2); ABS Eosinophils 0.1 10^3/ul (0-0.6); ABS Monocytes 0.3 10^3/ul (0-0.8); ABS Neutrophils 4.2 10^3/ul (1.5-7.7); ABS Nucleated RBC 0.1 10^3/ul; Hematocrit 26 % (35-47); Hemoglobin 8.3 g/dl (12.0-16.0); Lymphocyte % 18.2 % (25-47); Mean Corpuscular HGB Conc 32 g/dl (31-36); Mean Corpuscular Hemoglobin 26 pg (27-31); Mean Corpuscular Volume 82 fL (80-97); Mean Platelet Volume 8.5 um3 (7.4-10.4); Nucleated Red Blood Cells % 1.1; Platelet Count 146 10^3/ul (150-450); Red Blood Count 3.19 10^6/ul (4.0-5.4); Red Cell Distribution Width 18 % (10.5-15); White Blood Count 5.6 10^3/ul (3.5-10.8)
[2017-11-02 05:01] LABS: INR 1.87 (0.77-1.02)
[2017-11-02 05:10] LABS: EGFR Non-African American 35.5 (>60)
[2017-11-02] MEDS: Tiotropium CAP.INH* CAP.INH/18 MCG (USE ORDER SET !) INH SCH (08:07)
[2017-11-02] MEDS: Mometasone/Formoter 200/5 MDI INH SCH ×2 (08:07→21:04)
[2017-11-02] MEDS: Spironolactone TAB* 25 MG PO SCH (08:48)
[2017-11-02] MEDS: Gabapentin CAP(*) 100 MG PO SCH ×3 (08:48→20:32)
[2017-11-02] MEDS: Carvedilol TAB* 25 MG PO SCH ×3 (08:48→21:01)
[2017-11-02] MEDS: Ferrous Sulfate TAB* 325 MG PO SCH (08:48)
[2017-11-02] MEDS: Diltiazem CD CAP* 180 MG PO SCH (08:49)
[2017-11-02] MEDS: Torsemide TAB* 20 MG PO SCH ×2 (08:49→20:34)
[2017-11-02] MEDS: Atorvastatin* 20 MG TAB PO SCH (08:49)
[2017-11-02] MEDS: Famotidine TAB* 20 MG PO SCH (08:49)
[2017-11-02] MEDS: ALPRAZolam TAB* 0.5 MG PO PRN (17:40)
[2017-11-02] MEDS: Warfarin TAB(*) 4 MG PO SCH (17:40)
--- NOTE | 2017-11-02 19:03 | PN ---
Subjective Date of Service: 11/02/17 Interval History: concerned about why she was falling walked several feet today increasing ability to pivot Objective Active Medications: Acetaminophen (Tylenol Tab*) 650 mg PO Q4H PRN PRN Reason: FEVER/PAIN Last Admin: 10/30/17 08:27 Dose: 650 mg Acetaminophen (Tylenol Supp*) 650 mg [place] Q4H PRN PRN Reason: FEVER/PAIN Albuterol (Ventolin 2.5 Mg/3 Ml Neb.Lois*) 2.5 mg INH Q4H PRN PRN Reason: SOB/WHEEZING Last Admin: 10/31/17 19:36 Dose: 2.5 mg Alprazolam (Xanax Tab*) 0.5 mg PO TID PRN PRN Reason: ANXIETY Last Admin: 11/02/17 17:40 Dose: 0.5 mg Atorvastatin [place]cium (Lipitor*) 20 mg PO DAILY [facility] Last Admin: 11/02/17 08:49 Dose: 20 mg Carvedilol (Coreg Tab*) 50 mg PO BID [facility] Last Admin: 11/02/17 08:50 Dose: Not Given Cyclobenzaprine HCl (Flexeril Tab*) 10 mg PO TID PRN PRN Reason: PAIN Last Admin: 11/02/17 17:40 Dose: 10 mg Diltiazem HCl (Cardizem Cd Cap*) 180 mg PO DAILY [facility] Last Admin: 11/02/17 08:49 Dose: 180 mg Famotidine (Pepcid Tab*) 20 mg PO DAILY [facility] Last Admin: 11/02/17 08:49 Dose: 20 mg Ferrous Sulfate (Ferrous Sulfate Tab*) 325 mg PO DAILY [facility] Last Admin: 11/02/17 08:48 Dose: 325 mg Gabapentin (Neurontin Cap(*)) 200 mg PO TID [facility] Last Admin: 11/02/17 14:43 Dose: 200 mg Heparin Sodium (Porcine) (Heparin Flush Picc/Ml/Cvc(*)) 1 - 3 ml FLUSH 0600, 1800 [facility] PRN Reason: Protocol Last Admin: 11/02/17 17:41 Dose: 3 ml Cefepime HCl (Maxipime 1 Gm In Dextrose Duplex (*)) 1 gm in 50 mls @ 100 mls/ hr IV Q24H [facility] Last Admin: 11/01/17 20:25 Dose: 100 mls/hr Mometasone Furoate/Formoterol Fumar (Dulera 200/5 Mdi*) 2 puff INH BID [facility] Last Admin: 11/02/17 08:07 Dose: 2 puff Nicotine (Nicotine Patch 14 Mg/24 Hr*) 1 patch TRANSDERM DAILY PRN PRN Reason: CRAVINGS Oxycodone HCl (Roxycodone Tab*) 5 mg PO Q6H PRN PRN Reason: PAIN Last Admin: 11/02/17 14:43 Dose: 5 mg Pharmacy Profile Note (Nicotine Patch Removal Note*) 1 note PATCH OFF 2100 [facility] Last Admin: 11/01/17 20:31 Dose: Not Given Quetiapine Fumarate (Seroquel Tab*) 800 mg PO BEDTIME [facility] Last Admin: 11/01/17 20:25 Dose: 800 mg Spironolactone (Aldactone Tab*) 50 mg PO DAILY [facility] Last Admin: 11/02/17 08:48 Dose: 50 mg Tiotropium [place] (Spiriva Cap.Inh*) 1 cap INH DAILY [facility] Last Admin: 11/02/17 08:07 Dose: 1 cap Torsemide (Demadex*) 20 mg PO BID [facility] Last Admin: 11/02/17 08:49 Dose: 20 mg Warfarin Sodium (Coumadin Tab(*)) 8 mg PO DAILY@1700 [facility] PRN Reason: Protocol Last Admin: 11/02/17 17:40 Dose: 8 mg Vital Signs - 8 hr 11/02/17 11/02/17 11/02/17 11:30 14:43 15:14 Temperature 98.1 F 98.1 F Pulse Rate 96 82 Respiratory 20 18 16 Rate Blood Pressure 123/71 109/56 (mmHg) O2 Sat by Pulse 97 99 Oximetry 11/02/17 11/02/17 17:37 17:40 Temperature Pulse Rate Respiratory 18 18 Rate Blood Pressure (mmHg) O2 Sat by Pulse Oximetry Oxygen Devices in Use Now: Nasal Cannula Appearance: sitting in chair, NAD Eyes: No Scleral Icterus, PERRLA Ears/Nose/Mouth/Throat: NL Teeth, Lips, Gums, Clear Oropharnyx Neck: NL Appearance and Movements; NL JVP, Trachea Midline Respiratory: Symmetrical Chest Expansion and Respiratory Effort, Clear to Auscultation Cardiovascular: RRR Abdominal: NL Sounds; No Tenderness; No Distention Lymphatic: No Cervical Adenopathy Extremities: - - trace le edema Skin: No Rash or Ulcers Neurological: Alert and Oriented x 3 Result Diagrams: 11/02/17 04:45 11/02/17 04:45 Additional Lab and Data: Lab Results 10/25/17 10/25/17 10/25/17 Range/Units 09:41 09:41 09:41 WBC 3.5 (3.5-10.8) 10^3/ul RBC 3.49 L (4.0-5.4) 10^6/ul Hgb 9.0 L (12.0-16.0) g/dl Hct 28 L (35-47) % MCV 81 (80-97) fL MCH 26 L (27-31) pg MCHC 32 (31-36) g/dl RDW 20 H (10.5-15) % Plt Count 137 L (150-450) 10^3/ul MPV 11.5 H (7.4-10.4) um3 Neut % (Auto) Not Reportable Lymph % (Auto) Not Reportable [place] % (Auto) Not Reportable Eos % (Auto) Not Reportable Baso % (Auto) Not Reportable Absolute Neuts (auto) Not Reportable Absolute Lymphs (auto) Not Reportable Absolute Monos (auto) Not Reportable Absolute Eos (auto) Not Reportable Absolute Basos (auto) Not Reportable Absolute Nucleated RBC Not Reportable Immature Gran % 2 (0-9) % Neutrophils % 21 L (38-83) % Band Neutrophils % 2 (0-8) % Lymphocytes % 58 H (25-47) % Monocytes % 17 H (0-7) % Eosinophils % 0 (0-6) % Basophils % 2 (0-2) % Nucleated RBC % Not Reportable Abs Neuts (Manual) 0.7 L* (1.5-7.7) 10^3/ul Abs Lymphs (Manual) 2.0 (1.0-4.8) 10^3/ul Abs Monocytes (Manual) 0.6 (0-0.8) 10^3/ul Absolute Eos (Manual) 0 (0-0.6) 10^3/ul Abs Basophils (Manual) 0.1 (0-0.2) 10^3/ul Normal RBC Morphology Not Reportable Hypochromasia 1+ Microcytosis 1+ INR (Anticoag Therapy) (0.77-1.02) D-Dimer, Quantitative (Less Than 230) ng/mL ABG pH (7.35-7.45) ABG pCO2 (35-45) mmHg ABG pO2 (80-100) mmHg ABG HCO3 (19-31) mmol/L ABG O2 Saturation (95-98) % ABG Base Excess (-2.0-2.0) Sodium 140 (139-145) mmol/L Potassium 6.5 H* (3.5-5.0) mmol/L Chloride 101 (101-111) mmol/L Carbon Dioxide 31 (22-32) mmol/L Anion Gap 8 (2-11) mmol/L BUN 113 H (6-24) mg/dL Creatinine 5.33 H (0.51-0.95) mg/dL Est GFR ( Amer) 10.5 (>60) Est GFR (Non-Af Amer) 8.1 (>60) BUN/Creatinine Ratio 21.2 H (8-20) Glucose 96 (70-100) mg/dL Lactic Acid 0.8 (0.5-2.0) mmol/L Calcium 9.1 (8.6-10.3) mg/dL Phosphorus 6.8 H (2.5-5.0) mg/dL Magnesium 2.3 (1.9-2.7) mg/dL Total Bilirubin 0.50 (0.2-1.0) mg/dL AST 35 (13-39) U/L ALT 25 (7-52) U/L Alkaline Phosphatase 46 (34-104) U/L Total Creatine Kinase Pending Troponin I 0.04 H* (<0.04) ng/mL C-Reactive Protein 168.67 H (< 5.00) mg/L B-Natriuretic Peptide ( - 100) pg/mL Total Protein 6.2 L (6.4-8.9) g/dL Albumin 3.3 (3.2-5.2) g/dL Globulin 2.9 (2-4) g/dL Albumin/Globulin Ratio 1.1 (1-3) TSH Pending Blood Type Antibody Screen 10/25/17 10/25/17 10/25/17 Range/Units 09:41 09:41 09:41 WBC (3.5-10.8) 10^3/ul RBC (4.0-5.4) 10^6/ul Hgb (12.0-16.0) g/dl Hct (35-47) % MCV (80-97) fL MCH (27-31) pg MCHC (31-36) g/dl RDW (10.5-15) % Plt Count (150-450) 10^3/ul MPV (7.4-10.4) um3 Neut % (Auto) Lymph % (Auto) [place] % (Auto) Eos % (Auto) Baso % (Auto) Absolute Neuts (auto) Absolute Lymphs (auto) Absolute Monos (auto) Absolute Eos (auto) Absolute Basos (auto) Absolute Nucleated RBC Immature Gran % (0-9) % Neutrophils % (38-83) % Band Neutrophils % (0-8) % Lymphocytes % (25-47) % Monocytes % (0-7) % Eosinophils % (0-6) % Basophils % (0-2) % Nucleated RBC % Abs Neuts (Manual) (1.5-7.7) 10^3/ul Abs Lymphs (Manual) (1.0-4.8) 10^3/ul Abs Monocytes (Manual) (0-0.8) 10^3/ul Absolute Eos (Manual) (0-0.6) 10^3/ul Abs Basophils (Manual) (0-0.2) 10^3/ul Normal RBC Morphology Hypochromasia Microcytosis INR (Anticoag Therapy) 5.64 H* (0.77-1.02) D-Dimer, Quantitative < 200 (Less Than 230) ng/mL ABG pH (7.35-7.45) ABG pCO2 (35-45) mmHg ABG pO2 (80-100) mmHg ABG HCO3 (19-31) mmol/L ABG O2 Saturation (95-98) % ABG Base Excess (-2.0-2.0) Sodium (139-145) mmol/L Potassium (3.5-5.0) mmol/L Chloride (101-111) mmol/L Carbon Dioxide (22-32) mmol/L Anion Gap (2-11) mmol/L BUN (6-24) mg/dL Creatinine (0.51-0.95) mg/dL Est GFR ( Amer) (>60) Est GFR (Non-Af Amer) (>60) BUN/Creatinine Ratio (8-20) Glucose (70-100) mg/dL Lactic Acid (0.5-2.0) mmol/L Calcium (8.6-10.3) mg/dL Phosphorus (2.5-5.0) mg/dL Magnesium (1.9-2.7) mg/dL Total Bilirubin (0.2-1.0) mg/dL AST (13-39) U/L ALT (7-52) U/L Alkaline Phosphatase (34-104) U/L Total Creatine Kinase Troponin I (<0.04) ng/mL C-Reactive Protein (< 5.00) mg/L B-Natriuretic Peptide 116 H ( - 100) pg/mL Total Protein (6.4-8.9) g/dL Albumin (3.2-5.2) g/dL Globulin (2-4) g/dL Albumin/Globulin Ratio (1-3) TSH Blood Type O Positive Antibody Screen Negative 10/25/17 Range/Units 10:05 WBC (3.5-10.8) 10^3/ul RBC (4.0-5.4) 10^6/ul Hgb (12.0-16.0) g/dl Hct (35-47) % MCV (80-97) fL MCH (27-31) pg MCHC (31-36) g/dl RDW (10.5-15) % Plt Count (150-450) 10^3/ul MPV (7.4-10.4) um3 Neut % (Auto) Lymph % (Auto) [place] % (Auto) Eos % (Auto) Baso % (Auto) Absolute Neuts (auto) Absolute Lymphs (auto) Absolute Monos (auto) Absolute Eos (auto) Absolute Basos (auto) Absolute Nucleated RBC Immature Gran % (0-9) % Neutrophils % (38-83) % Band Neutrophils % (0-8) % Lymphocytes % (25-47) % Monocytes % (0-7) % Eosinophils % (0-6) % Basophils % (0-2) % Nucleated RBC % Abs Neuts (Manual) (1.5-7.7) 10^3/ul Abs Lymphs (Manual) (1.0-4.8) 10^3/ul Abs Monocytes (Manual) (0-0.8) 10^3/ul Absolute Eos (Manual) (0-0.6) 10^3/ul Abs Basophils (Manual) (0-0.2) 10^3/ul Normal RBC Morphology Hypochromasia Microcytosis INR (Anticoag Therapy) (0.77-1.02) D-Dimer, Quantitative (Less Than 230) ng/mL ABG pH 7.32 L (7.35-7.45) ABG pCO2 61 H (35-45) mmHg ABG pO2 85 (80-100) mmHg ABG HCO3 28.2 (19-31) mmol/L ABG O2 Saturation 97.0 (95-98) % ABG Base Excess 4.3 H (-2.0-2.0) Sodium (139-145) mmol/L Potassium (3.5-5.0) mmol/L Chloride (101-111) mmol/L Carbon Dioxide (22-32) mmol/L Anion Gap (2-11) mmol/L BUN (6-24) mg/dL Creatinine (0.51-0.95) mg/dL Est GFR ( Amer) (>60) Est GFR (Non-Af Amer) (>60) BUN/Creatinine Ratio (8-20) Glucose (70-100) mg/dL Lactic Acid (0.5-2.0) mmol/L Calcium (8.6-10.3) mg/dL Phosphorus (2.5-5.0) mg/dL Magnesium (1.9-2.7) mg/dL Total Bilirubin (0.2-1.0) mg/dL AST (13-39) U/L ALT (7-52) U/L Alkaline Phosphatase (34-104) U/L Total Creatine Kinase Troponin I (<0.04) ng/mL C-Reactive Protein (< 5.00) mg/L B-Natriuretic Peptide ( - 100) pg/mL Total Protein (6.4-8.9) g/dL Albumin (3.2-5.2) g/dL Globulin (2-4) g/dL Albumin/Globulin Ratio (1-3) TSH Blood Type Antibody Screen Microbiology and Other Data: Microbiology 10/26/17 13:19 Aerobic Blood Culture - Preliminary Blood Venous No Growth Day 3 Anaerobic Blood Culture - Preliminary No Growth Day 3 10/26/17 12:55 Aerobic Blood Culture - Preliminary Blood Line No Growth Day 3 Anaerobic Blood Culture - Preliminary No Growth Day 3 10/25/17 13:20 Aerobic Blood Culture - Preliminary Blood Venous No Growth Day 3 Anaerobic Blood Culture - Preliminary No Growth Day 3 10/25/17 14:34 Aerobic Blood Culture - Preliminary Blood Venous No Growth Day 3 Anaerobic Blood Culture - Preliminary No Growth Day 3 10/26/17 12:55 Gram Stain - Final Sputum Sputum Culture - Final Normal Ana Cristina 10/25/17 12:44 Nasal Screen MRSA (PCR)(JOAO) - Final Nasal Mrsa Not Detected Assess/Plan/Problems-Billing Assessment: Mrs. 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 treated with intermittent IV Lasix PRN (2) Acute respiratory failure Comment: wean as tolerated. 2/2 CHF exac (3) Afib Comment: controlled on cardizem and coreg (4) Anemia Comment: normocytic related to multiple ecchymoses after a fall prior to admission as well as mantle cell lymphoma and baseline chronic anemia stool guaiac neg started iron supplement (5) History of pulmonary embolism Comment: coumadin restarted on 10/31/17 (6) Mantle cell lymphoma Comment: Ibrutinib on hold while admitted; needs to be resumed upon discharge (7) FRANCIS (obstructive sleep apnea) Comment: Continue CPAP. (8) Septic shock Comment: due to pneumonia resolved, was on pressors in ICU. so far cx neg cont Cefepime, Vanc discontinued (9) DVT prophylaxis Comment: coumadin Status and Disposition: inpatient
[2017-11-02] MEDS: Cefepime 1 GM in Dextrose(*) 1 GM/50 ML BAG IV SCH (20:30)
[2017-11-02] MEDS: QUEtiapine TAB* 100 MG PO SCH (20:34)
[2017-11-02] MEDS: Nicotine Patch Removal NOTE PATCH OFF SCH (21:13)
[2017-11-03] MEDS: oxyCODONE TAB* 5 MG TAB PO PRN ×2 (02:23→08:29)
[2017-11-03] MEDS: ALPRAZolam TAB* 0.5 MG PO PRN (04:21)
[2017-11-03 05:16] LABS: ABS Basophils 0 10^3/ul (0-0.2); ABS Eosinophils 0.1 10^3/ul (0-0.6); ABS Monocytes 0.5 10^3/ul (0-0.8); ABS Neutrophils 3.8 10^3/ul (1.5-7.7); ABS Nucleated RBC 0 10^3/ul; Eosinophil % 1.1 % (0-6); Hematocrit 27 % (35-47); Hemoglobin 8.5 g/dl (12.0-16.0); Lymphocyte % 18.7 % (25-47); Mean Corpuscular HGB Conc 32 g/dl (31-36); Mean Corpuscular Hemoglobin 26 pg (27-31); Mean Corpuscular Volume 81 fL (80-97); Nucleated Red Blood Cells % 0.7; Platelet Count 164 10^3/ul (150-450); Red Blood Count 3.29 10^6/ul (4.0-5.4); Red Cell Distribution Width 18 % (10.5-15); White Blood Count 5.3 10^3/ul (3.5-10.8)
[2017-11-03 05:18] LABS: INR 1.65 (0.77-1.02)
[2017-11-03 05:25] LABS: EGFR Non-African American 34.9 (>60)
[2017-11-03] MEDS: Acetaminophen TAB* 325 MG PO PRN (07:35)
[2017-11-03] MEDS: Cyclobenzaprine TAB* 10 MG PO PRN (07:35)
[2017-11-03] MEDS: Atorvastatin* 20 MG TAB PO SCH (08:28)
[2017-11-03] MEDS: Diltiazem CD CAP* 180 MG PO SCH (08:28)
[2017-11-03] MEDS: Torsemide TAB* 20 MG PO SCH (08:28)
[2017-11-03] MEDS: Ferrous Sulfate TAB* 325 MG PO SCH (08:28)
[2017-11-03] MEDS: Famotidine TAB* 20 MG PO SCH (08:29)
[2017-11-03] MEDS: Gabapentin CAP(*) 100 MG PO SCH (08:29)
[2017-11-03] MEDS: Spironolactone TAB* 25 MG PO SCH (08:29)
[2017-11-03] MEDS: Tiotropium CAP.INH* CAP.INH/18 MCG (USE ORDER SET !) INH SCH (08:36)
[2017-11-03] MEDS: Mometasone/Formoter 200/5 MDI INH SCH (08:36)
[2017-11-03] MEDS: Carvedilol TAB* 25 MG PO SCH (09:16)
[2017-11-03] MEDS ORDERED: Warfarin TAB(*) 7.5 MG PO ONE (11:24)
[2017-11-03 12:35] VITALS: BP 100/66
--- NOTE | 2017-11-03 13:34 | DS ---
CC: Dr. Stuart; Dr. Jc. * DISCHARGE SUMMARY: DATE OF ADMISSION: 10/25/17 DATE OF DISCHARGE: 11/03/17. PRIMARY CARE PROVIDER: Dr. Stuart. PRIMARY DIAGNOSES: 1. Severe septic shock secondary to pneumonia. 2. Acute systolic heart failure exacerbation. 3. Acute respiratory failure. 4. Acute renal failure. SECONDARY DIAGNOSES: Include: 1. Anemia. 2. History of pulmonary embolism. 3. Mantle cell lymphoma. 4. Obstructive sleep apnea. 5. Morbid obesity. 6. Atrial fibrillation. 7. Chronic kidney disease. 8. Chronic obstructive pulmonary disease. 9. Current tobacco abuse. 10. Hypertension. 11. Hyperlipidemia. MEDICATIONS AT DISCHARGE: 1. Trazodone 100 mg at bedtime. 2. Oxycodone 5 mg every 6 hours as needed. 3. Coumadin 15 mg Wednesday, Wednesday, Wednesday, , Wednesday, 10 mg on Wednesday and Wednesday. 4. Torsemide 20 mg twice daily. 5. Tiotropium 1 capsule daily. 6. Spironolactone 50 mg daily. 7. Seroquel 800 mg at bedtime. 8. Potassium chloride 20 mEq daily. 9. MiraLAX daily as needed. 10. Nitroglycerin 14 mg transdermal patch every 24 hours. 11. Dulera 200/5 two puffs inhaled daily. 12. Gabapentin 200 mg 3 times daily. 13. Docusate 100 mg twice daily. 14. Diltiazem 180 mg daily. 15. Flexeril 10 mg 3 times a day as needed. 16. Carvedilol 50 mg twice daily. 17. Calcium carbonate 500 mg twice daily as needed. 18. Lipitor 20 mg daily. 19. Albuterol nebulizer every 4 hours as needed. 20. Acetaminophen 650 mg every 4 hours as needed. 21. Xanax 0.5 mg 3 times a day as needed. 22. Ferrous sulfate 325 mg daily. PERTINENT LABORATORY DATA: INR on the day of discharge is 1.6, creatinine on the day of discharge is 1.5, hemoglobin on the day of discharge is 8.5. PERTINENT IMAGING STUDIES: 1. Include chest, abdomen, and pelvis CAT scan, impression: Consolidative changes right lung base with small right sided effusion. Cardiomegaly, mild hepatomegaly, fibroid uterus. 2. Transthoracic echocardiogram, impression: Multiple regional wall motion abnormalities with moderately decreased left ventricular systolic function, ejection fraction is 35% to 40% with prominent septal knuckle. Right ventricular global systolic function is severely reduced, pacemaker wire is visualized in the right ventricle. There is no evidence of aortic stenosis. There is trace mild regurgitation. There is [id number] TR, right ventricular systolic function is 42. HISTORY OF PRESENT ILLNESS AND HOSPITAL COURSE: This is a 62-year-old female with multiple comorbidities as outlined in the history of present illness, on the day of admission presented to the hospital with altered mental status noted to be lethargic as well as hypotensive in respiratory distress. She is noted to be hypoxic in the emergency room, placed on CPAP, found with hypercarbic respiratory failure. At that time she declined intubation and was managed on noninvasive positive pressure of ventilation. She was monitored in the ICU, treated with cefepime as well as vancomycin, titrated down to cefepime alone for 9 additional days. She required norepinephrine. Briefly, on the day of the 10/26/17, she improved transferred out of the intensive care unit. Last day of vancomycin was on 10/28/17. Her last fever was noted to be on 10/28/17, five days prior to discharge. Her antibiotics will be discontinued at the time of discharge. She was restarted on Coumadin at 15 mg with peak INR of 2.8 with ultimately decreasing her Coumadin dose to 8 mg daily with a subsequent decline in INR to 1.65 on the day of discharge. She was treated with additional 8 mg on the day of discharge to increase her total daily dose to 15 mg on 11/03/17 and then to resume home dosing off Coumadin as outlined in the discharge summary. Her renal function improved with IV hydration; however, did have acute difficulty breathing, thought in the setting of acute CHF exacerbation responding to Lasix. On the day of discharge she was on her home oxygen of 3 L. She was seen in consultation during the hospital stay with Critical Care Medicine as well as Oncology/Hematology. For her mantle cell lymphoma, she did receive 1 unit of packed red blood cells during the course of the hospital stay. Her ibrutinib IV was held during the course of the hospital stay, it will be restarted as an outpatient. There were no other complications during the course of the hospital stay. In summary, patient was admitted with hypercarbic respiratory failure found that this was septic shock requiring briefly norepinephrine in the ICU as well as noninvasive positive pressure ventilation. Her respiratory status as well as her cardiovascular status and her renal function improved. However hospital stay was marked by an episode of hypoxic respiratory failure thought in the setting of CHF exacerbation. On the day of discharge she was back to home oxygen, ambulating small distances, although she still had significant need for physical therapy. DISCHARGE INSTRUCTIONS: At followup, please; 1. INR to be checked on 11/05/17. 2. Ensure patient follows with primary care provider as well as oncologist for further discussion of restarting outpatient chemotherapy. 3. No other specific labs or vitals that need followup. Reasons to return to the hospital include, but not limited to recurrent or worsening symptoms including difficulty breathing, chest pain, nausea, vomiting , lightheadedness, loss of consciousness, bleeding from any source were discussed with the patient. She acknowledged understanding. TIME SPENT: Greater than 60 minutes was spent on the discharge of the patient, greater than half spent [id number] with the patient. [id number]/CPS #: [id number] MTDRei
== END 2017-11-03 14:17 | DRG 871 ==
LOC: ED 09:01 → ICU 11:13 → MEDTELE 10-28 17:55
PROVIDERS: ADMIT Internal Medicine; ATTEND Internal Medicine
PROC: 5A09457 Assistance with Respiratory Ventilation, 24-96 Consecutive Hours, Continuous Positive Airway Pressure (ICD-10-PCS; principal; 2017-10-25)
PROC: 02HV33Z Insertion of Infusion Device into Superior Vena Cava, Percutaneous Approach (ICD-10-PCS; 2017-10-25)
PROC: 3E033XZ Introduction of Vasopressor into Peripheral Vein, Percutaneous Approach (ICD-10-PCS; 2017-10-26)
PROC: 0T9B70Z Drainage of Bladder with Drainage Device, Via Natural or Artificial Opening (ICD-10-PCS; 2017-10-26)
PROC: 30233N1 Transfusion of Nonautologous Red Blood Cells into Peripheral Vein, Percutaneous Approach (ICD-10-PCS; 2017-11-01)
DX: A41.9 Sepsis, unspecified organism (principal); J18.9 Pneumonia, unspecified organism; R65.21 Severe sepsis with septic shock; I50.43 Acute on chronic combined systolic (congestive) and diastolic (congestive) heart failure; J96.21 Acute and chronic respiratory failure with hypoxia; J96.22 Acute and chronic respiratory failure with hypercapnia; G93.41 Metabolic encephalopathy; N17.0 Acute kidney failure with tubular necrosis; I13.0 Hypertensive heart and chronic kidney disease with heart failure and stage 1 through stage 4 chronic kidney disease, or unspecified chronic kidney disease; E87.2 Acidosis; I50.42 Chronic combined systolic (congestive) and diastolic (congestive) heart failure; J44.1 Chronic obstructive pulmonary disease with (acute) exacerbation; D62 Acute posthemorrhagic anemia; J44.0 Chronic obstructive pulmonary disease with (acute) lower respiratory infection; M62.82 Rhabdomyolysis; Z68.43 Body mass index [BMI] 50.0-59.9, adult; I48.2 Chronic atrial fibrillation; F32.9 Major depressive disorder, single episode, unspecified; F41.9 Anxiety disorder, unspecified; F17.210 Nicotine dependence, cigarettes, uncomplicated; E66.01 Morbid (severe) obesity due to excess calories; E87.5 Hyperkalemia; R74.8 Abnormal levels of other serum enzymes; G47.33 Obstructive sleep apnea (adult) (pediatric); S80.11XA Contusion of right lower leg, initial encounter; S40.021A Contusion of right upper arm, initial encounter; E78.5 Hyperlipidemia, unspecified; E86.0 Dehydration; D25.9 Leiomyoma of uterus, unspecified; R16.0 Hepatomegaly, not elsewhere classified; D70.9 Neutropenia, unspecified; N18.3 Chronic kidney disease, stage 3 (moderate); I08.2 Rheumatic disorders of both aortic and tricuspid valves; D63.1 Anemia in chronic kidney disease; W18.30XA Fall on same level, unspecified, initial encounter; R41.0 Disorientation, unspecified; S60.561A Insect bite (nonvenomous) of right hand, initial encounter; S20.211A Contusion of right front wall of thorax, initial encounter; S40.011A Contusion of right shoulder, initial encounter; D69.6 Thrombocytopenia, unspecified; M54.9 Dorsalgia, unspecified; G89.29 Other chronic pain; Z88.6 Allergy status to analgesic agent; Z95.810 Presence of automatic (implantable) cardiac defibrillator; Z99.81 Dependence on supplemental oxygen; Z85.79 Personal history of other malignant neoplasms of lymphoid, hematopoietic and related tissues; Z80.9 Family history of malignant neoplasm, unspecified; Z72.89 Other problems related to lifestyle; Z86.711 Personal history of pulmonary embolism; Y92.9 Unspecified place or not applicable; Z80.1 Family history of malignant neoplasm of trachea, bronchus and lung; Z79.01 Long term (current) use of anticoagulants
CPT/HCPCS: 36415; 36600; 70450; 71045; 71250; 74176; 76775; 80048; 80053; 80202; 81003; 81015; 82140; 82272; 82550; 82570; 82607; 82728; 82746; 82803; 83540; 83550; 83605; 83735; 83880; 84100; 84145; 84300; 84443; 84484; 85014; 85018; 85025; 85027; 85379; 85610; 86140; 86850; 86900; 86901; 86922; 87040; 87070; 87086; 87205; 87641; 93005; 93306; 94640; 94660; 99233; 99285; A9270-GY; C1751; G8987-GO-CK; G8988-GO-CI; G8989-GO-CI; J0692; J1160; J1170; J1940; J2997; J3010; J3370; P9040

== ENCOUNTER 2017-11-22 15:57 | Inpatient (IN) | payer OTHER, MEDICARE ==
[2017-11-22] MEDS ORDERED: traMADol TAB* 50 MG PO ONE (16:44)
[2017-11-22 16:45] LABS: Hematocrit 31 % (35-47); Hemoglobin 9.7 g/dl (12.0-16.0); Mean Corpuscular HGB Conc 32 g/dl (31-36); Mean Corpuscular Hemoglobin 26 pg (27-31); Mean Corpuscular Volume 81 fL (80-97); Mean Platelet Volume 10.2 um3 (7.4-10.4); Platelet Count 140 10^3/ul (150-450); Red Blood Count 3.77 10^6/ul (4.00-5.40); Red Cell Distribution Width 19 % (10.5-15); White Blood Count 8.1 10^3/ul (3.5-10.8)
[2017-11-22 17:14] LABS: EGFR Non-African American 16.5 (>60)
--- NOTE | 2017-11-22 17:43 | RAD ---
INDICATION: Fall, pain. COMPARISON: Comparison is made with a prior study from October 28, 2017. TECHNIQUE: An AP view of the chest was obtained sitting. FINDINGS: The heart appears mildly enlarged and unchanged from the prior exam. There is a transvenous cardiac pacemaker defibrillator present. There is mild prominence of the interstitial markings which appear unchanged. The lungs are otherwise clear. No pleural effusion or pneumothorax is seen. IMPRESSION: NO EVIDENCE FOR ACUTE FINDING.
--- NOTE | 2017-11-22 17:45 | RAD ---
INDICATION: Fall bilateral shoulder pain. TECHNIQUE: 4 views of both shoulders were obtained. FINDINGS: The bones are in normal alignment. No fracture is seen. Joint spaces appear maintained. IMPRESSION: NO EVIDENCE OF FRACTURE.
--- NOTE | 2017-11-22 17:48 | RAD ---
INDICATION: Fall bilateral knee pain. TECHNIQUE: 2 views of both knees were obtained. FINDINGS: The bones are normal alignment. There is a small joint effusion in the right knee and a moderate joint effusion in the left knee. No fracture is seen. There is moderate osteoarthritic change in all 3 compartments of both knees. IMPRESSION: 1. BILATERAL JOINT EFFUSIONS, NO FRACTURE IS SEEN. 2. MODERATE BILATERAL OSTEOARTHRITIC CHANGE.
[2017-11-22 19:12] LABS: INR 1.02 (0.77-1.02)
[2017-11-22] MEDS ORDERED: Ondansetron INJ* 2 MG/ML VIAL IV PRN (19:24)
[2017-11-22] MEDS ORDERED: Calcium Carbonate CHEW TAB* 500 MG (TUMS) PO PRN (19:30)
[2017-11-22] MEDS ORDERED: Albuterol 2.5 MG/3 ML NEB.SOL* (0.083%) INH PRN (19:30)
[2017-11-22] MEDS ORDERED: Docusate CAP* 100 MG PO PRN (19:30)
[2017-11-22] MEDS ORDERED: NS 0.9% 1000 ML* 1,000 ML IV SCH (19:30)
[2017-11-22] MEDS ORDERED: Polyethylene Glycol 3350* 17 GM PACKET PO PRN (19:30)
[2017-11-22 20:01] LABS: Urine Appearance Clear; Urine Blood Negative (Negative); Urine Color Yellow; Urine Ketones Negative (Negative); Urine Protein Negative (Negative); Urine Red Blood Cell Absent (Absent); Urine Urobilinogen Negative (Negative); Urine White Blood Cell Trace(0-5/hpf) (Absent)
--- NOTE | 2017-11-22 20:29 | RAD ---
INDICATION: Fall, weakness and lethargy. COMPARISON: Comparison is made with a prior CT of the brain from October 25, 2017. TECHNIQUE: Contiguous axial sections of the brain were obtained from the skull base to the vertex without contrast. FINDINGS: The ventricles, cisterns and sulci are enlarged consistent with age-related atrophy. There are small areas of decreased density in the subcortical and periventricular white matter suggestive of mild chronic small vessel ischemic changes. There is also a small area of encephalomalacia present in the posterior right parietal lobe which is unchanged most consistent with a small old infarct. No other focal abnormalities or mass effect are seen. There is no evidence for hemorrhage. No significant focal osseous abnormality is seen. The visualized portion of the paranasal sinuses and mastoid air cells appear clear. IMPRESSION: 1. NO EVIDENCE FOR ACUTE INTRACRANIAL ABNORMALITY. 2. SMALL OLD INFARCT, UNCHANGED. 3. FINDINGS CONSISTENT WITH CHRONIC SMALL VESSEL ISCHEMIC CHANGES.
--- NOTE | 2017-11-22 20:36 | RAD ---
INDICATION: Fall, hip pain. COMPARISON: Comparison is made with a prior CT of the abdomen and pelvis from August 09, [address] of the abdomen and pelvis from October 25, 2017. TECHNIQUE: Contiguous axial sections were obtained through the pelvis without intravenous or oral contrast. Images were reconstructed in the coronal and sagittal planes. FINDINGS: The bones are in normal alignment. No fracture is seen. There is mild bilateral osteoarthritic change in the hips. The visualized portion of the small bowel colon appear nondistended. No enlarged pelvic or inguinal lymph nodes are seen. The uterus is enlarged with a least one large calcified fibroid measuring 6.7 cm in size. No free intraperitoneal air or fluid is seen. IMPRESSION: 1. NO EVIDENCE FOR FRACTURE. 2. FIBROID UTERUS.
[2017-11-22] MEDS ORDERED: QUEtiapine TAB* 100 MG PO SCH (21:00)
[2017-11-22] MEDS ORDERED: Gabapentin CAP(*) 100 MG PO SCH (21:00)
[2017-11-22] MEDS: Gabapentin CAP(*) 100 MG PO SCH (21:57)
[2017-11-22] MEDS: Acetaminophen TAB* 325 MG PO PRN (21:57)
[2017-11-22] MEDS: Carvedilol TAB* 25 MG PO SCH (21:58)
[2017-11-22] MEDS: Warfarin TAB(*) 5 MG PO SCH (21:59)
[2017-11-22] MEDS: Heparin VIAL(*) 5000 UNITS/ML VIAL (FIVE THOUSAND) IV SCH (22:31)
[2017-11-22] MEDS: Heparin DRIP 25,000 UNITS(*) 25,000 UNITS/500 ML BAG IV SCH (22:38)
--- NOTE | 2017-11-22 23:10 | HP ---
HISTORY AND PHYSICAL: DATE OF ADMISSION: ADDENDUM: ASSESSMENT AND PLAN: Left leg rotation and shortening. I am getting a CT pelvis because of the falls. History of falls. Again, the fall is probably could be from polypharmacy, dehydration. So, again if there is no fracture or again any intracranial hemorrhage from the fall, I certainly would get PT/OT eval. If there is fracture at the pelvis or the hip, I will get Ortho involved. RONNIE VARMA NP [id number]/CPS #: [id number] FLOYD
--- NOTE | 2017-11-22 23:35 | HP ---
ADDENDUM NOW INCLUDED ON THIS REPORT CC: Dr. Stuart * HISTORY AND PHYSICAL: DATE OF ADMISSION: 11/22/17 PRIMARY CARE PROVIDER: Dr. Stuart. ATTENDING PHYSICIAN WHILE IN THE HOSPITAL: Dr. Genesis Marcial * (report dictated by Julian Chase NP). CHIEF COMPLAINT: 1. Fall. 2. Weakness. 3. Drowsiness. HISTORY OF PRESENT ILLNESS: Ms. Robledo is a 62-year-old female patient, who is coming into the emergency department today with complaints of falling twice. She was recently here about a month ago, end of October, and was discharged to [facility] for rehab. She was discharged from [facility] on , . Went home, she fell once on Wednesday. She fell landing on her left knee. She hit her left shoulder. She did not hit her head or pass out. She fell again today. She was trying to get to the bathroom and she said she just felt very weak in her legs, collapsed, and she landed on both knees. The grandson was with her. The patient said that she did not pass out, she remembers the fall, she did not hit her head. She said that her legs just felt weak. There have been no reports of fevers, cough. No shortness of breath. Denied any abdominal pain. There has been no nausea, no vomiting, no dysuria or any frequency reported. No chest pain, no shortness of breath. The patient says her weight to her knowledge has been stable. The grandson says that he has noticed the last 4 days, she has been a little more drowsy, she has been lethargic, weak, sleepy, not really eating all that much. Because of this and the fall, they were concerned and brought her into the hospital today. The patient was evaluated in the ED, it was noted that she appeared to be in acute renal failure. Because of these findings, we were asked to evaluate for admission. Also, of note, the patient does state that she has not taken her Coumadin since being discharged from [facility]. She said she had been taking that right along. She thought she was taking Coumadin at home, but when med rec was done today in the ED, the pharmacy sales representative pointed out that the Coumadin was not amongst her pill bottles and she thought she had been taking it right along. PAST MEDICAL HISTORY: Significant for: 1. PEs bilaterally, diagnosed in June of this year. 2. Lymphoma. 3. CKD. 4. AFib. 5. CHF, last known EF was 35% to 40%. 6. She has a history of FRANCIS. She is not compliant with the mask. She says she has not worn it over the last few days. 7. History of anemia. 8. COPD. 9. Hypertension. 10. Hyperlipidemia. PAST SURGICAL HISTORY: She has had an AICD placement. MEDICATIONS: Home medications include: 1. She was supposed to be taking warfarin 15 mg on Wednesday, Wednesday, Wednesday, , and Wednesday and 10 mg on Wednesday and Wednesday. 2. Demadex 20 mg p.o. b.i.d. 3. Gabapentin 200 mg p.o. t.i.d. 4. Spironolactone 50 mg daily. 5. Potassium 20 mEq p.o. daily. 6. Diltiazem 180 p.o. daily. 7. Carvedilol 50 mg p.o. b.i.d. 8. Trazodone 100 mg at bedtime. 9. Seroquel 800 mg p.o. at bedtime. 10. Lisinopril 20 mg daily. 11. Imbruvica 560 mg p.o. daily. 12. Xanax 0.5 mg p.o. t.i.d. as needed. 13. Prednisone 5 mg daily. 14. Lipitor 20 mg daily. 15. Calcium 500 mg p.o. b.i.d. as needed. 16. Ventolin 2.5 mg inhaled every 4 hours as needed. 17. Tylenol 650 mg every 4 hours as needed. 18. Ferrous sulfate 325 mg daily. 19. Colace 100 mg p.o. b.i.d. as needed. 20. MiraLAX 17 g p.o. daily as needed. 21. Oxycodone 5 mg every 6 hours as needed. ALLERGIES TO MEDICATIONS: Include ASPIRIN, which causes hives. FAMILY HISTORY: Her mother is alive. Father had a history of lung cancer. SOCIAL HISTORY: She is a uunm-t-bfgv-a-day smoker. She has not smoked since August of this year. She rarely drinks alcohol. Surrogate decision maker is her , Dieudonne. REVIEW OF SYSTEMS: There is no documented fever. She denied any significant weight change to me. She denies having any double vision. There is no ear discharge. She denies having any rhinorrhea. There was no sore throat. No thyroid enlargement. She denied having any chest pain. There was no orthopnea. There was no nocturnal dyspnea. She denies having any abdominal pain. There is no nausea, no vomiting. No dysuria, no frequency. There was no loss of consciousness, no seizure. No pruritus and no skin ulcerations. Review of 14 systems completed, all others negative. PHYSICAL EXAMINATION GENERAL: At this time, Ms. Robledo is a 62-year-old female patient. She is sitting in the ED stretcher. She does not appear to be in any acute distress. She is morbidly obese. VITAL SIGNS: Reveal blood pressure 123/93, pulse 83, respirations 19, O2 sat 97 % on 3 L, temperature 97.4. HEENT: Head: Atraumatic, normocephalic. Eyes: EOMs are intact. Sclerae are anicteric and not pale. Throat: Oral mucosa appears to be dry. No oropharyngeal erythema. NECK: Supple. LUNGS: Diminished in the bases. No wheezes, rales, or rhonchi. HEART: Sounds S1, S2. Irregularly irregular rate. No murmurs, rubs, or gallops. ABDOMEN: Soft, flat, nontender. Bowel sounds present. EXTREMITIES: Pulses were 2+ throughout. She had no peripheral edema. She is able to move all 4 extremities. She has limited range of motion to the right lower extremity. It does to me appear to be shortened and rotated. She also did have an ecchymotic area to the right knee. The left leg was rotated and a little shortened, and she also on the right shoulder has an ecchymosis to the posterior aspect of her shoulder, but was able to move her extremities, again limited because of pain to the left lower extremity. NEUROLOGIC: She is awake, but during my exam she was drowsy. She would fall asleep, then she would wake back up. She did have a tremor that almost appeared to be asterixis, but she does awaken, she knows it is November, she knows the year, she knows her name. Speech is clear. Tongue midline. She had no gross focal deficits. SKIN: Intact but she had 2 ecchymotic areas again to the right shoulder and to the right lower extremity but no open areas were obviously noted. DIAGNOSTIC STUDIES/LAB DATA: Today revealed a WBC of 8.1; RBC of 3.77; her hemoglobin was 9.7, her baseline actually runs between 7 and 8; she does have a hematocrit of 31. Her INR was 1.02. Blood gas: pH 7.39, PCO2 of 60, PO2 of 80. Her sodium was 143, potassium of 4.8, chloride of 102, bicarb 34, BUN 84, creatinine was 2.89 and her baseline creatinine runs right about 1.5 to 1.8, the glucose was 81, calcium 9.4. Total bili 0.3, AST 8, ALT 9, alk phos 50. Troponin 0.01. Albumin of 3.2. Urine showed trace leukocyte esterase only. She had chest x-ray obtained today showing no evidence of acute findings. She had a shoulder x-ray obtained today showing no evidence for acute fracture. She had knee x-ray obtained today, which showed bilateral joint effusions, no fracture seen, moderate bilateral osteoarthritic changes, and she had small effusion on the right knee and moderate effusion on the left knee. She did have an EKG obtained today as well, which showed there to be atrial fibrillation. She has had that previously, she does appear to be again in atrial fibrillation. No ST elevations or T-wave inversions. I reviewed to the previous EKG; it does appear to be similar. Old medical records were reviewed. ASSESSMENT AND PLAN: Ms. Robledo is a complex 62-year-old female patient coming into the ED today with complaints of falls and weakness. We were asked to evaluate for admission. She will be admitted under inpatient status for: 1. Weakness with concerns for encephalopathy. Again during my exam, she was sleepy, drowsy. The etiology of this is multifactorial. I did check the ABG, which feels okay. I am going to check the ammonia because of the asterixis that she had on my exam. Her BUN and creatinine are up, she appears to be dry. With the setting of her worsening renal function and the polypharmacy, she is on multiple central nervous system depressant drugs, these certainly all could be contributing. I am cutting back the Seroquel, stopping her oxycodone, stopping the trazodone for now. We can always restart this later. I will get neuro checks on her. I am also CT'ing her brain just to make there is not anything going on. Neurologically, that could be causing this, but she is nonfocal. Checking ammonia, checking TSH. I will add on a B12 and we will continue to follow this. As the weakness improves, if she does clear, the mentation gets better, I will certainly get PT/OT eval. I am also going to be getting again neuro checks and trying to hold those central nervous system depressant drugs. 2. History of atrial fibrillation. She has a high CHADS-VASc score. Her INR is subtherapeutic today. I am going to put her on heparin drip. We will continue her rate-controlling agents with hold parameters. 3. History of bilateral pulmonary embolism. In the setting of her having active lymphoma, I am going to certainly get her on the heparin drip until she is therapeutic. I think she deserves a bridge. I do note 2 ecchymotic areas. We will watch her H and H closely. 4. Anemia. Again H and H, actually, she appears to be hemoconcentrated and dehydrated, so I am going to hydrate her and continue to follow. 5. Acute on chronic kidney disease. Again, her kidney function appears to be worsened today. I am sending off a FENa. Bladder scan. I am going to hydrate her, hold the diuretics, hold the nephrotoxic agents, and we will continue to follow this. I think again her becoming dehydrated because she has not been eating probably due polypharmacy, creatinine functioning getting worse and causing again accumulation of these drug and tablets causing again the mentation worsening today. 6. History of congestive heart failure. Again, she appears to be dry. We will diurese as needed. I have held her diuretics. We will continue to follow that closely. 7. Obstructive sleep apnea. I am going to ask to get her CPAP on as soon as possible as this will help her, and we will continue. 8. Chronic obstructive pulmonary disease. She does not appear to be in exacerbation. I have ordered p.r.n. nebs. 9. Hypertension. Continue meds as prescribed. 10. Hyperlipidemia. Continue statin therapy. 11. DVT prophylaxis. She will be on a heparin drip. 12. Code status. Full code. 13. Fluids, electrolytes, and nutrition. Heart-healthy diet has been ordered. TIME SPENT: On the admission was 60 minutes, greater than half the time was spent [id number] with the patient obtaining my history and physical; other half time was spent going over the plan of care with the patient and implementing the plan of care. I did discuss the plan of care with my attending physician, Dr. Marcial; she is in agreement. JULIAN CHASE NP ADDENDUM: ASSESSMENT AND PLAN: Left leg rotation and shortening. I am getting a CT pelvis because of the falls. History of falls. Again, the fall probably could be from polypharmacy, dehydration. So, again if there is no fracture or again any intracranial hemorrhage from the fall, I certainly would get PT/OT eval. If there is fracture at the pelvis or the hip, I will get Ortho involved. JULIAN CHASE NP [id number]/CPS #: [id number] #: [id number] FLOYD
[2017-11-23] MEDS: Acetaminophen TAB* 325 MG PO PRN ×4 (04:30→19:20)
[2017-11-23] MEDS ORDERED: traMADol TAB* 50 MG PO ONE (04:52)
[2017-11-23 05:27] LABS: ABS Basophils 0.1 10^3/ul (0-0.2); ABS Eosinophils 0.1 10^3/ul (0-0.6); ABS Lymphocytes 2.8 10^3/ul (1.0-4.8); ABS Monocytes 0.5 10^3/ul (0-0.8); ABS Neutrophils 4.9 10^3/ul (1.5-7.7); ABS Nucleated RBC 0.2 10^3/ul; Eosinophil % 1.5 % (0-6); Hematocrit 29 % (35-47); Hemoglobin 9.1 g/dl (12.0-16.0); Mean Corpuscular HGB Conc 32 g/dl (31-36); Mean Corpuscular Hemoglobin 26 pg (27-31); Mean Corpuscular Volume 81 fL (80-97); Nucleated Red Blood Cells % 2.2; Platelet Count 122 10^3/ul (150-450); Red Cell Distribution Width 18 % (10.5-15); White Blood Count 8.4 10^3/ul (3.5-10.8)
[2017-11-23 05:31] LABS: INR 1.03 (0.77-1.02)
[2017-11-23 05:40] LABS: EGFR Non-African American 19.9 (>60)
[2017-11-23] MEDS: Atorvastatin* 20 MG TAB PO SCH (09:00)
[2017-11-23] MEDS: predniSONE TAB* 5 MG PO SCH (09:00)
[2017-11-23] MEDS: Gabapentin CAP(*) 100 MG PO SCH ×3 (09:00→22:19)
[2017-11-23] MEDS: Diltiazem CD CAP* 180 MG PO SCH (09:01)
[2017-11-23] MEDS: IBRUTINIB 560 MG PO SCH (09:01)
[2017-11-23] MEDS: Ferrous Sulfate TAB* 325 MG PO SCH (09:01)
[2017-11-23] MEDS: Carvedilol TAB* 25 MG PO SCH ×2 (09:02→22:20)
[2017-11-23] MEDS: traMADol TAB* 50 MG PO PRN ×3 (10:20→22:20)
--- NOTE | 2017-11-23 15:44 | PN ---
Subjective Date of Service: 11/23/17 Interval History: Patient states that she has been falling frequently at home after discharge from [place]. States she was doing very well in rehab. States she usually just feels weak and falls. No LOC, palpitations, CP. Has pain "all over" from falls. Refuses rehab at discharge at this point. Denies F/C, N/V, abdominal pain, diarrhea, CP, SOB, dysuria, dizziness, palpitations. States she was previously trialed on a "shot" for anticoagulation but developed too much bruising at injection site for continuation. Family History: Unchanged from Admission Social History: Unchanged from Admission Past Medical History: Unchanged from Admission Objective Active Medications: Acetaminophen (Tylenol Tab*) 650 mg PO Q4H PRN PRN Reason: FEVER/PAIN Last Admin: 11/23/17 13:22 Dose: 650 mg Albuterol (Ventolin 2.5 Mg/3 Ml Neb.Lois*) 2.5 mg INH Q4H PRN PRN Reason: SOB/WHEEZING Atorvastatin Calcium (Lipitor*) 20 mg PO DAILY [facility] Last Admin: 11/23/17 09:00 Dose: 20 mg Calcium Carbonate (Tums*) 500 mg PO BID PRN PRN Reason: heartburn Carvedilol (Coreg Tab*) 50 mg PO BID [facility] Last Admin: 11/23/17 09:02 Dose: 50 mg Diltiazem HCl (Cardizem Cd Cap*) 180 mg PO DAILY [facility] Last Admin: 11/23/17 09:01 Dose: Not Given Docusate Sodium (Colace Cap*) 100 mg PO BID PRN PRN Reason: CONSTIPATION Ferrous Sulfate (Ferrous Sulfate Tab*) 325 mg PO DAILY [facility] Last Admin: 11/23/17 09:01 Dose: 325 mg Gabapentin (Neurontin Cap(*)) 200 mg PO TID [facility] Last Admin: 11/23/17 13:22 Dose: 200 mg Heparin Sodium (Porcine) (Heparin Vial(*)) 0 units IV .PER PROTOCOL [facility] Last Admin: 11/22/17 22:31 Dose: 6,350 units Heparin Sodium/Dextrose (Heparin Drip 25,000 Units(*)) 25,000 units in 500 mls @ 0 mls/hr IV PER RATE [facility]; Per Protocol PRN Reason: Protocol Last Admin: 11/22/17 22:38 Dose: 27 mls/hr Sodium Chloride (Ns 0.9% 1000 Ml*) 1,000 mls @ 75 mls/hr IV PER RATE [facility] Last Admin: 11/22/17 23:09 Dose: 75 mls/hr Non-Formulary Medication (Ibrutinib [Imbruvica]) 560 mg PO DAILY [facility] Last Admin: 11/23/17 09:01 Dose: Not Given Ondansetron HCl (Zofran Inj*) 4 mg IV Q6H PRN PRN Reason: NAUSEA Polyethylene Glycol/Electrolytes (Miralax*) 17 gm PO DAILY PRN PRN Reason: CONSTIPATION Prednisone (Deltasone Tab*) 5 mg PO QAM [facility] Last Admin: 11/23/17 09:00 Dose: 5 mg Quetiapine Fumarate (Seroquel Tab*) 100 mg PO BEDTIME [facility] Tramadol HCl (Ultram*) 25 mg PO Q6H PRN PRN Reason: PAIN Last Admin: 11/23/17 10:20 Dose: 25 mg Warfarin Sodium (Coumadin Tab(*)) 15 mg PO MoTuWeThFr@1700 [facility] PRN Reason: Protocol Last Admin: 11/22/17 21:59 Dose: 15 mg Warfarin Sodium (Coumadin Tab(*)) 10 mg PO SuSa@1700 [facility] PRN Reason: Protocol Vital Signs - 8 hr 11/23/17 11/23/17 11/23/17 08:00 09:00 09:04 Temperature Pulse Rate 118 Respiratory 14 14 Rate Blood Pressure 91/47 (mmHg) O2 Sat by Pulse Oximetry 11/23/17 11/23/17 11/23/17 09:22 10:20 11:27 Temperature 97.4 F Pulse Rate 94 111 Respiratory 12 17 Rate Blood Pressure 96/76 81/48 (mmHg) O2 Sat by Pulse 97 Oximetry 11/23/17 11/23/17 11/23/17 11:56 12:30 13:22 Temperature Pulse Rate 81 Respiratory 14 14 Rate Blood Pressure 83/41 (mmHg) O2 Sat by Pulse Oximetry 11/23/17 11/23/17 14:14 15:22 Temperature Pulse Rate Respiratory 14 Rate Blood Pressure 90/50 (mmHg) O2 Sat by Pulse Oximetry Oxygen Devices in Use Now: Nasal Cannula Appearance: Patient is a 62yo female who appears older than stated age and is sitting in the bed in [facility]. Eyes: No Scleral Icterus, PERRLA Ears/Nose/Mouth/Throat: NL Teeth, Lips, Gums, Clear Oropharnyx, Mucous Membranes Moist Neck: NL Appearance and Movements; NL JVP, Trachea Midline Respiratory: Symmetrical Chest Expansion and Respiratory Effort, Clear to Auscultation Cardiovascular: NL Sounds; No Murmurs; No JVD, RRR, No Edema Abdominal: NL Sounds; No Tenderness; No Distention, No Hepatosplenomegaly Lymphatic: No Cervical Adenopathy Extremities: No Edema Skin: No Rash or Ulcers, No Nodules or Sclerosis Neurological: Alert and Oriented x 3, NL Sensation, NL Muscle Strength and Tone , - - CN II-XII intact. Result Diagrams: 11/23/17 05:16 11/23/17 05:16 Assess/Plan/Problems-Billing Assessment: Patient is a 62yo female with a PMH for CHF, COPD, CKD, Anemia, Mantle cell lymphoma who presents after several falls from weakness after discharge from [facility] as well as significant AMS which has now resolved. - Patient Problems (1) Altered mental status Current Visit: Yes Status: Acute Code(s): R41.82 - ALTERED MENTAL STATUS, UNSPECIFIED SNOMED Code(s): 319836576 Comment: Significantly encephalopathic on admission. Resolved. Denies taking too much of a medication. Improved with decrease in psychoactive medications. Likely toxic encephalopathy from polypharmacy in the setting of GEORGE. Continue medications at decreased doses. Likely contributing to falls. (2) Chronic respiratory failure with hypoxia and hypercapnia Current Visit: Yes Status: Acute Code(s): J96.11 - CHRONIC RESPIRATORY FAILURE WITH HYPOXIA; J96.12 - CHRONIC RESPIRATORY FAILURE WITH HYPERCAPNIA SNOMED Code(s): 92113683 Comment: Due to COPD. On 2L O2 at home per patient. (3) Acute kidney injury Current Visit: No Status: Acute Priority: High Code(s): N17.9 - ACUTE KIDNEY FAILURE, UNSPECIFIED SNOMED Code(s): 72972668 Comment: Acute on chronic. FeNa suggests intrinsic process. Possibly ATN. Improving with hydration. Continue fluids and monitor. (4) Afib Current Visit: No Status: Acute Code(s): I48.91 - UNSPECIFIED ATRIAL FIBRILLATION SNOMED Code(s): 65679093 Comment: Rate controlled on cardizem and coreg Was off Coumadin inadvertently. Resume with heparin drip. Follow with Dr. Garrido outpatient. (5) Anemia Current Visit: No Status: Acute Code(s): D64.9 - ANEMIA, UNSPECIFIED SNOMED Code(s): 980358488 Comment: Normocytic At baseline. Possibly related to CKD, AOCD, Chemotherapy. Monitor. Continue iron PO. (6) Cardiomyopathy Current Visit: No Status: Acute Priority: High Code(s): I42.9 - CARDIOMYOPATHY, UNSPECIFIED SNOMED Code(s): 77832615 Comment: LVEF 35-40% 10/2017. Appeared dry on admission with GEORGE and hypotension Antihypertensives and diuretics held at this time due to hypotension. Resume as tolerated. (7) History of pulmonary embolism Current Visit: No Status: Acute Code(s): Z86.711 - PERSONAL HISTORY OF PULMONARY EMBOLISM SNOMED Code(s): 676680743 Comment: Coumadin at home dose. Bridged with heparin drip. Follow INR. Currently subtherapeutic. Trialed on Lovenox previously. (8) Mantle cell lymphoma Current Visit: No Status: Acute Code(s): C83.10 - MANTLE CELL LYMPHOMA, UNSPECIFIED SITE SNOMED Code(s): 898882083 Comment: Continue with Ibrutinib. Follow with Cardiology outpatient. (9) Physical deconditioning Current Visit: No Status: Acute Code(s): R53.81 - OTHER MALAISE SNOMED Code(s): 34794561929985 Comment: Frequent falls due to weakness without focality. Continue PT. Will likely need rehab at discharge. (10) COPD (chronic obstructive pulmonary disease) Current Visit: No Status: Chronic Code(s): J44.9 - CHRONIC OBSTRUCTIVE PULMONARY DISEASE, UNSPECIFIED SNOMED Code(s): 69973401 Comment: No Exacerbation. Nebulizers PRN. (11) Hypertension Current Visit: No Status: Chronic Priority: High Onset Date: 01/29/14 Code(s): I10 - ESSENTIAL (PRIMARY) HYPERTENSION SNOMED Code(s): 74905748 Comment: BP low, consistent levels with previous hospitalization. Continue fluids. Hold antihypertensives except for rate control agents at this time. Reintroduce as tolerated. (12) FRANCIS (obstructive sleep apnea) Current Visit: No Status: Chronic Code(s): G47.33 - OBSTRUCTIVE SLEEP APNEA (ADULT) (PEDIATRIC) SNOMED Code(s): 05537559 Comment: Continue CPAP. (13) DVT prophylaxis Current Visit: No Status: Acute Onset Date: 10/25/14 Code(s): MDF6058 - SNOMED Code(s): 656769038 Comment: Heparin Drip. (14) Full code status Current Visit: No Status: Acute Onset Date: 10/25/14 Code(s): Z78.9 - OTHER SPECIFIED HEALTH STATUS SNOMED Code(s): 382471010
[2017-11-23] MEDS: Warfarin TAB(*) 5 MG PO SCH (16:49)
[2017-11-23] MEDS ORDERED: Warfarin TAB(*) 10 MG PO SCH (17:00)
[2017-11-23] MEDS ORDERED: oxyCODONE TAB* 5 MG TAB PO ONE (20:00)
[2017-11-23] MEDS ORDERED: Alteplase (CATHFLO)* 2 MG VIAL IV ONE (20:00)
[2017-11-23] MEDS: QUEtiapine TAB* 100 MG PO SCH (22:20)
[2017-11-24] MEDS: Heparin DRIP 25,000 UNITS(*) 25,000 UNITS/500 ML BAG IV SCH ×2 (02:08→20:01)
[2017-11-24] MEDS: Acetaminophen TAB* 325 MG PO PRN ×2 (03:08→10:28)
[2017-11-24] MEDS: traMADol TAB* 50 MG PO PRN ×3 (05:34→20:23)
[2017-11-24 06:07] LABS: ABS Basophils 0.1 10^3/ul (0-0.2); ABS Eosinophils 0.1 10^3/ul (0-0.6); ABS Lymphocytes 2.1 10^3/ul (1.0-4.8); ABS Monocytes 0.7 10^3/ul (0-0.8); ABS Nucleated RBC 0.1 10^3/ul; Eosinophil % 1.2 % (0-6); Hematocrit 27 % (35-47); Hemoglobin 8.7 g/dl (12.0-16.0); Lymphocyte % 20.7 % (25-47); Mean Corpuscular HGB Conc 32 g/dl (31-36); Mean Corpuscular Hemoglobin 26 pg (27-31); Mean Corpuscular Volume 82 fL (80-97); Mean Platelet Volume 10.6 um3 (7.4-10.4); Nucleated Red Blood Cells % 1.2; Platelet Count 118 10^3/ul (150-450); Red Blood Count 3.37 10^6/ul (4.00-5.40); Red Cell Distribution Width 19 % (10.5-15)
[2017-11-24 06:16] LABS: INR 1.27 (0.77-1.02)
[2017-11-24] MEDS: Heparin VIAL(*) 5000 UNITS/ML VIAL (FIVE THOUSAND) IV SCH ×2 (07:13→12:50)
[2017-11-24] MEDS: Torsemide TAB* 20 MG PO SCH ×2 (10:28→20:22)
[2017-11-24] MEDS: Ferrous Sulfate TAB* 325 MG PO SCH (10:28)
[2017-11-24] MEDS: Gabapentin CAP(*) 100 MG PO SCH ×3 (10:29→20:22)
[2017-11-24] MEDS: Atorvastatin* 20 MG TAB PO SCH (10:29)
[2017-11-24] MEDS: IBRUTINIB 560 MG PO SCH (10:29)
[2017-11-24] MEDS: Carvedilol TAB* 25 MG PO SCH ×2 (10:30→20:22)
[2017-11-24] MEDS: predniSONE TAB* 5 MG PO SCH (10:30)
[2017-11-24] MEDS: Diltiazem CD CAP* 180 MG PO SCH (10:31)
[2017-11-24] MEDS: Spironolactone TAB* 25 MG PO SCH (10:31)
[2017-11-24] MEDS: ALPRAZolam TAB* 0.25 MG PO PRN (12:55)
--- NOTE | 2017-11-24 15:19 | PN ---
Subjective Date of Service: 11/24/17 Interval History: Patient complains of generalized pain, anxiety, and weakness in her legs when walking similar to when she was falling at home. Patient denies F/C, N/C, CP, SOB, Abdominal pain, diarrhea, constipation. Patient is still non-committal about going to rehab, would prefer to go home. Family History: Unchanged from Admission Social History: Unchanged from Admission Past Medical History: Unchanged from Admission Objective Active Medications: Acetaminophen (Tylenol Tab*) 650 mg PO Q4H PRN PRN Reason: FEVER/PAIN Last Admin: 11/24/17 10:28 Dose: 650 mg Albuterol (Ventolin 2.5 Mg/3 Ml Neb.Lois*) 2.5 mg INH Q4H PRN PRN Reason: SOB/WHEEZING Alprazolam (Xanax Tab*) 0.25 mg PO TID PRN PRN Reason: ANXIETY Last Admin: 11/24/17 12:55 Dose: 0.25 mg Atorvastatin Calcium (Lipitor*) 20 mg PO DAILY [facility] Last Admin: 11/24/17 10:29 Dose: 20 mg Calcium Carbonate (Tums*) 500 mg PO BID PRN PRN Reason: heartburn Carvedilol (Coreg Tab*) 50 mg PO BID [facility] Last Admin: 11/24/17 10:30 Dose: 50 mg Diltiazem HCl (Cardizem Cd Cap*) 180 mg PO DAILY [facility] Last Admin: 11/24/17 10:31 Dose: 180 mg Docusate Sodium (Colace Cap*) 100 mg PO BID PRN PRN Reason: CONSTIPATION Ferrous Sulfate (Ferrous Sulfate Tab*) 325 mg PO DAILY [facility] Last Admin: 11/24/17 10:28 Dose: 325 mg Gabapentin (Neurontin Cap(*)) 200 mg PO TID [facility] Last Admin: 11/24/17 13:14 Dose: 200 mg Heparin Sodium (Porcine) (Heparin Vial(*)) 0 units IV .PER PROTOCOL [facility] Last Admin: 11/24/17 12:50 Dose: 6,350 units Heparin Sodium (Porcine) (Heparin Flush Picc/Ml/Cvc(*)) 1 - 3 ml FLUSH 0600, 1800 [facility] PRN Reason: Protocol Last Admin: 11/24/17 05:43 Dose: Not Given Heparin Sodium/Dextrose (Heparin Drip 25,000 Units(*)) 25,000 units in 500 mls @ 0 mls/hr IV PER RATE [facility]; Per Protocol PRN Reason: Protocol Last Admin: 11/24/17 02:08 Dose: 27 mls/hr Pto Nf Med* ( Ibrutinib [Imbruvica ] 560 Mg) 560 mg PO DAILY [facility] Last Admin: 11/24/17 10:29 Dose: 560 mg Ondansetron HCl (Zofran Inj*) 4 mg IV Q6H PRN PRN Reason: NAUSEA Oxycodone HCl (Roxycodone Tab*) 2.5 mg PO Q6H PRN PRN Reason: PAIN Polyethylene Glycol/Electrolytes (Miralax*) 17 gm PO DAILY PRN PRN Reason: CONSTIPATION Prednisone (Deltasone Tab*) 5 mg PO QAM [facility] Last Admin: 11/24/17 10:30 Dose: 5 mg Quetiapine Fumarate (Seroquel Tab*) 100 mg PO BEDTIME [facility] Last Admin: 11/23/17 22:20 Dose: 100 mg Spironolactone (Aldactone Tab*) 50 mg PO DAILY [facility] Last Admin: 11/24/17 10:31 Dose: 50 mg Torsemide (Demadex*) 20 mg PO BID [facility] Last Admin: 11/24/17 10:28 Dose: 20 mg Tramadol HCl (Ultram*) 25 mg PO Q6H PRN PRN Reason: PAIN Last Admin: 11/24/17 12:55 Dose: 25 mg Warfarin Sodium (Coumadin Tab(*)) 15 mg PO MoTuWeThFr@1700 [facility] PRN Reason: Protocol Last Admin: 11/23/17 16:49 Dose: 15 mg Warfarin Sodium (Coumadin Tab(*)) 10 mg PO SuSa@1700 [facility] PRN Reason: Protocol Vital Signs - 8 hr 11/24/17 11/24/17 11/24/17 07:23 07:39 08:00 Temperature 97.4 F Pulse Rate 82 Respiratory 24 18 Rate Blood Pressure 105/74 (mmHg) O2 Sat by Pulse 99 99 Oximetry 11/24/17 11/24/17 11/24/17 10:29 10:31 11:24 Temperature 97.5 F Pulse Rate 88 Respiratory 18 18 20 Rate Blood Pressure 80/59 (mmHg) O2 Sat by Pulse 100 Oximetry 11/24/17 11/24/17 11/24/17 12:25 12:55 13:02 Temperature Pulse Rate 98 Respiratory 18 18 Rate Blood Pressure 90/65 (mmHg) O2 Sat by Pulse 100 Oximetry 11/24/17 13:14 Temperature Pulse Rate Respiratory 18 Rate Blood Pressure (mmHg) O2 Sat by Pulse Oximetry Oxygen Devices in Use Now: Nasal Cannula Appearance: Patient is a 62yo female who appears stated age and is sitting in the chair in [facility]. Eyes: No Scleral Icterus, PERRLA Ears/Nose/Mouth/Throat: NL Teeth, Lips, Gums, Clear Oropharnyx, Mucous Membranes Moist Neck: NL Appearance and Movements; NL JVP, Trachea Midline Respiratory: Symmetrical Chest Expansion and Respiratory Effort, Clear to Auscultation Cardiovascular: NL Sounds; No Murmurs; No JVD, - - 1+ B/L LE edema. Irregularly irregular rhythm. Abdominal: NL Sounds; No Tenderness; No Distention, No Hepatosplenomegaly Lymphatic: No Inguinal Adenopathy Skin: No Rash or Ulcers, No Nodules or Sclerosis Neurological: Alert and Oriented x 3, NL Sensation, NL Muscle Strength and Tone , - - CN II-XII intact. Result Diagrams: 11/24/17 05:42 11/24/17 05:42 Assess/Plan/Problems-Billing Assessment: Patient is a 62yo female with a PMH for CHF, COPD, CKD, Anemia, Mantle cell lymphoma who presents after several falls from weakness after discharge from [facility] as well as significant AMS which has now resolved. - Patient Problems (1) Altered mental status Current Visit: Yes Status: Acute Code(s): R41.82 - ALTERED MENTAL STATUS, UNSPECIFIED SNOMED Code(s): 872934239 Comment: Significantly encephalopathic on admission. Resolved. Denies taking too much of a medication. Improved with decrease in psychoactive medications. Likely toxic encephalopathy from polypharmacy in the setting of GEORGE. Continue medications at decreased doses. Likely contributing to falls. (2) Chronic respiratory failure with hypoxia and hypercapnia Current Visit: Yes Status: Acute Code(s): J96.11 - CHRONIC RESPIRATORY FAILURE WITH HYPOXIA; J96.12 - CHRONIC RESPIRATORY FAILURE WITH HYPERCAPNIA SNOMED Code(s): 06607184 Comment: Due to COPD. On 2L O2 at home per patient. (3) Acute kidney injury Current Visit: No Status: Acute Priority: High Code(s): N17.9 - ACUTE KIDNEY FAILURE, UNSPECIFIED SNOMED Code(s): 07910192 Comment: Acute on chronic. FeNa suggests intrinsic process. Possibly ATN. Improving with hydration. Stop fluids for weight gain and monitor. Cret still increased form baseline. (4) Afib Current Visit: No Status: Acute Code(s): I48.91 - UNSPECIFIED ATRIAL FIBRILLATION SNOMED Code(s): 14229639 Comment: Rate controlled on cardizem and coreg Was off Coumadin inadvertently. Resume with heparin drip. Follow with Dr. Garrido outpatient. (5) Anemia Current Visit: No Status: Acute Code(s): D64.9 - ANEMIA, UNSPECIFIED SNOMED Code(s): 723212368 Comment: Normocytic At baseline. Possibly related to CKD, AOCD, Chemotherapy. Monitor. Continue iron PO. (6) Cardiomyopathy Current Visit: No Status: Acute Priority: High Code(s): I42.9 - CARDIOMYOPATHY, UNSPECIFIED SNOMED Code(s): 39592596 Comment: LVEF 35-40% 10/2017. Appeared dry on admission with GEORGE and hypotension Torsemide and Spironolactone resumed today due to weight gain and normotension. (7) History of pulmonary embolism Current Visit: No Status: Acute Code(s): Z86.711 - PERSONAL HISTORY OF PULMONARY EMBOLISM SNOMED Code(s): 052544105 Comment: Coumadin at home dose. Bridged with heparin drip. Follow INR. Currently subtherapeutic. Trialed on Lovenox previously and discontinued due to bleeding. (8) Mantle cell lymphoma Current Visit: No Status: Acute Code(s): C83.10 - MANTLE CELL LYMPHOMA, UNSPECIFIED SITE SNOMED Code(s): 578901510 Comment: Continue with Ibrutinib. Follow with Oncology outpatient. (9) Physical deconditioning Current Visit: No Status: Acute Code(s): R53.81 - OTHER MALAISE SNOMED Code(s): 40085656642028 Comment: Frequent falls due to weakness without focality. Continue PT. Will likely need rehab at discharge. (10) COPD (chronic obstructive pulmonary disease) Current Visit: No Status: Chronic Code(s): J44.9 - CHRONIC OBSTRUCTIVE PULMONARY DISEASE, UNSPECIFIED SNOMED Code(s): 58289388 Comment: No Exacerbation. Nebulizers PRN. (11) Hypertension Current Visit: No Status: Chronic Priority: High Onset Date: 01/29/14 Code(s): I10 - ESSENTIAL (PRIMARY) HYPERTENSION SNOMED Code(s): 58049511 Comment: BP intermittently low, consistent levels with previous hospitalization. Resumed on Diuretics and rate control agents. Fluids stopped due to weight gain. (12) FRANCIS (obstructive sleep apnea) Current Visit: No Status: Chronic Code(s): G47.33 - OBSTRUCTIVE SLEEP APNEA (ADULT) (PEDIATRIC) SNOMED Code(s): 56927054 Comment: Continue CPAP. (13) DVT prophylaxis Current Visit: No Status: Acute Onset Date: 10/25/14 Code(s): HAY4636 - SNOMED Code(s): 525834095 Comment: Heparin Drip. INR 1.27 this AM. (14) Full code status Current Visit: No Status: Acute Onset Date: 10/25/14 Code(s): Z78.9 - OTHER SPECIFIED HEALTH STATUS SNOMED Code(s): 313782943 Status and Disposition: Inpatient, Will likely need ROXANA at discharge.
[2017-11-24] MEDS: Warfarin TAB(*) 5 MG PO SCH (17:28)
[2017-11-24] MEDS: QUEtiapine TAB* 100 MG PO SCH (20:22)
[2017-11-24] MEDS: oxyCODONE TAB* 5 MG TAB PO PRN (20:35)
[2017-11-25] MEDS: traMADol TAB* 50 MG PO PRN ×3 (03:03→21:51)
[2017-11-25] MEDS: oxyCODONE TAB* 5 MG TAB PO PRN ×3 (03:04→21:51)
[2017-11-25 06:11] LABS: Hematocrit 29 % (35-47); Hemoglobin 8.9 g/dl (12.0-16.0); Mean Corpuscular HGB Conc 31 g/dl (31-36); Mean Corpuscular Hemoglobin 25 pg (27-31); Mean Corpuscular Volume 81 fL (80-97); Mean Platelet Volume 10.9 um3 (7.4-10.4); Platelet Count 113 10^3/ul (150-450); Red Blood Count 3.53 10^6/ul (4.00-5.40); Red Cell Distribution Width 18 % (10.5-15); White Blood Count 11.5 10^3/ul (3.5-10.8)
[2017-11-25 06:33] LABS: INR 2.11 (0.77-1.02)
[2017-11-25 06:35] LABS: ABS Basophils 0 10^3/ul (0-0.2); ABS Neutrophils 8.5 10^3/ul (1.5-7.7); Monocytes % 3 % (0-7)
[2017-11-25] MEDS: IBRUTINIB 560 MG PO SCH (08:42)
[2017-11-25] MEDS: Gabapentin CAP(*) 100 MG PO SCH ×3 (08:42→21:50)
[2017-11-25] MEDS: Spironolactone TAB* 25 MG PO SCH (08:44)
[2017-11-25] MEDS: Torsemide TAB* 20 MG PO SCH ×2 (08:44→21:49)
[2017-11-25] MEDS: predniSONE TAB* 5 MG PO SCH (08:44)
[2017-11-25] MEDS: Carvedilol TAB* 25 MG PO SCH ×2 (08:48→21:50)
[2017-11-25] MEDS: Ferrous Sulfate TAB* 325 MG PO SCH (08:48)
[2017-11-25] MEDS: Diltiazem CD CAP* 180 MG PO SCH (08:48)
[2017-11-25] MEDS: Atorvastatin* 20 MG TAB PO SCH (08:49)
--- NOTE | 2017-11-25 10:39 | PN ---
Subjective Date of Service: 11/25/17 Interval History: Ms. Robledo reports that her arm hurts where blood was drawn today. She also notes that she is very afraid of walking because of her experience with her legs buckling. She denies other complaint including chest pain, SOB, nausea, or abdominal pain. Physical therapy report that she was able to walk briefly in her room today. Family History: Unchanged from Admission Social History: Unchanged from Admission Past Medical History: Unchanged from Admission Objective Active Medications: Acetaminophen (Tylenol Tab*) 650 mg PO Q4H PRN Albuterol (Ventolin 2.5 Mg/3 Ml Neb.Lois*) 2.5 mg INH Q4H PRN Alprazolam (Xanax Tab*) 0.25 mg PO TID PRN Atorvastatin Calcium (Lipitor*) 20 mg PO DAILY [facility] Calcium Carbonate (Tums*) 500 mg PO BID PRN Carvedilol (Coreg Tab*) 50 mg PO BID [facility] Diltiazem HCl (Cardizem Cd Cap*) 180 mg PO DAILY [facility] Docusate Sodium (Colace Cap*) 100 mg PO BID PRN Ferrous Sulfate (Ferrous Sulfate Tab*) 325 mg PO DAILY [facility] Gabapentin (Neurontin Cap(*)) 200 mg PO TID [facility] Heparin Sodium (Porcine) (Heparin Vial(*)) 0 units IV .PER PROTOCOL [facility] Heparin Sodium (Porcine) (Heparin Flush Picc/Ml/Cvc(*)) 1 - 3 ml FLUSH 0600, 1800 [facility] Heparin Sodium/Dextrose (Heparin Drip 25,000 Units(*)) 25,000 units in 500 mls @ 0 mls/hr IV PER RATE [facility]; Per Protocol Pto Nf Med* ( Ibrutinib [Imbruvica ] 560 Mg) 560 mg PO DAILY [facility] Ondansetron HCl (Zofran Inj*) 4 mg IV Q6H PRN Oxycodone HCl (Roxycodone Tab*) 2.5 mg PO Q6H PRN Polyethylene Glycol/Electrolytes (Miralax*) 17 gm PO DAILY [facility]N Prednisone (Deltasone Tab*) 5 mg PO QAM [facility] Quetiapine Fumarate (Seroquel Tab*) 100 mg PO BEDTIME [facility] Spironolactone (Aldactone Tab*) 50 mg PO DAILY [facility] Torsemide (Demadex*) 20 mg PO BID [facility] Tramadol HCl (Ultram*) 25 mg PO Q6H PRN Warfarin Sodium (Coumadin Tab(*)) 15 mg PO MoTuWeThFr@1700 [facility] Warfarin Sodium (Coumadin Tab(*)) 10 mg PO SuSa@1700 [facility] Vital Signs: Temp Pulse Resp BP Pulse Ox 97.5 F 94 20 96/50 99 11/25/17 07:36 11/25/17 07:36 11/25/17 10:15 11/25/17 07:36 11/25/17 07:36 Oxygen Devices in Use Now: Nasal Cannula Appearance: Female lying in bed in NAD Eyes: No Scleral Icterus Ears/Nose/Mouth/Throat: Mucous Membranes Moist Neck: Trachea Midline Respiratory: Symmetrical Chest Expansion and Respiratory Effort, Clear to Auscultation Cardiovascular: NL Sounds; No Murmurs; No JVD, - - +1 edema B LEs Abdominal: NL Sounds; No Tenderness; No Distention Skin: No Rash or Ulcers Neurological: Alert and Oriented x 3, NL Muscle Strength and Tone Nutrition: Taking PO's Result Diagrams: 11/25/17 05:30 11/25/17 05:30 Assess/Plan/Problems-Billing Assessment: Ms. Robledo is a 62yo female with a PMH for CHF, COPD, CKD, anemia, mantle cell lymphoma who presents after several falls from weakness after discharge from [facility] as well as significant AMS which has now resolved, thought to be secondary to polypharmacy and acute kidney injury. - Patient Problems (1) Altered mental status Comment: - Resolved. - Significantly encephalopathic on admission. Denies taking too much of a medication. Improved with decrease in psychoactive medications. Likely toxic encephalopathy from polypharmacy in the setting of GEOREG. Continue medications at decreased doses. Likely contributing to falls. (2) Acute kidney injury Comment: - Resolving. - Acute on chronic. FeNa suggests intrinsic process. Possibly ATN. Improving with hydration. Stop fluids for weight gain and monitor. Cret still increased form baseline. (3) Systolic and diastolic CHF, chronic Comment: - Asymptomatic. - LVEF 35-40% 10/2017. Appeared dry on admission with GEORGE and hypotension. Torsemide and Spironolactone have been resumed. (4) Chronic respiratory failure with hypoxia and hypercapnia Comment: - Stable. - Due to COPD. On 2L O2 at home per patient. (5) COPD (chronic obstructive pulmonary disease) Comment: - No Exacerbation. Nebulizers PRN. (6) History of pulmonary embolism Comment: - Coumadin at home dose. Bridged with heparin drip. INR 2.11, will need 24 hours more of heparin gtt. - Trialed on Lovenox previously and discontinued due to bleeding. (7) Afib Comment: - Rate controlled on cardizem and coreg - Was off Coumadin inadvertently. Hep gtt x 24 hours. - Follow with Dr. Garrido outpatient. (8) Mantle cell lymphoma Comment: - Continue with Ibrutinib. Follow with Oncology outpatient. (9) Anemia Comment: - Normocytic - At baseline. Possibly related to CKD, AOCD, Chemotherapy. - Continue iron PO. (10) Hypertension Comment: - SBP 80-130s. BP intermittently low, consistent levels with previous hospitalization. - Resumed on Diuretics and rate control agents. (11) Dyslipidemia Comment: - Continue statin. (12) FRANCIS (obstructive sleep apnea) Comment: Continue CPAP. (13) Physical deconditioning Comment: - Improving. - Frequent falls due to weakness without focality. - Continue PT. Will need to be able to do stairs before discharge or will need rehab. (14) DVT prophylaxis Comment: - Heparin Drip. INR 2.11 this AM. (15) Full code status Comment: Status and Disposition: Inpatient, Will likely need ROXANA at discharge.
[2017-11-25] MEDS: Heparin VIAL(*) 5000 UNITS/ML VIAL (FIVE THOUSAND) IV SCH ×2 (12:10→20:23)
[2017-11-25] MEDS: Warfarin TAB(*) 5 MG PO SCH (16:14)
[2017-11-25] MEDS: Heparin DRIP 25,000 UNITS(*) 25,000 UNITS/500 ML BAG IV SCH (19:30)
[2017-11-25] MEDS: QUEtiapine TAB* 100 MG PO SCH (21:50)
[2017-11-26] MEDS: oxyCODONE TAB* 5 MG TAB PO PRN ×3 (03:01→19:33)
[2017-11-26] MEDS: traMADol TAB* 50 MG PO PRN ×3 (03:01→21:18)
[2017-11-26] MEDS: Heparin VIAL(*) 5000 UNITS/ML VIAL (FIVE THOUSAND) IV SCH (04:05)
[2017-11-26] MEDS: Acetaminophen TAB* 325 MG PO PRN (06:32)
[2017-11-26] MEDS: IBRUTINIB 560 MG PO SCH (09:38)
[2017-11-26] MEDS: Carvedilol TAB* 25 MG PO SCH ×2 (09:39→21:17)
[2017-11-26] MEDS: Ferrous Sulfate TAB* 325 MG PO SCH (09:41)
[2017-11-26] MEDS: Gabapentin CAP(*) 100 MG PO SCH ×3 (09:41→21:16)
[2017-11-26] MEDS: Spironolactone TAB* 25 MG PO SCH (09:41)
[2017-11-26] MEDS: Diltiazem CD CAP* 180 MG PO SCH (09:42)
[2017-11-26] MEDS: predniSONE TAB* 5 MG PO SCH (09:42)
[2017-11-26] MEDS: Torsemide TAB* 20 MG PO SCH ×2 (09:42→21:17)
[2017-11-26] MEDS: Atorvastatin* 20 MG TAB PO SCH (09:42)
--- NOTE | 2017-11-26 09:42 | PN ---
Subjective Date of Service: 11/26/17 Interval History: Ms. Robledo denies complaint other than being frustrated about requiring so many attempts at blood draws and IV placements during this hospitalization. She is happy to learn that she will only need blood draws once a day or every other day now. She denies chest pain, SOB, nausea, or abdominal pain. Patient is not aware why she is on prednisone but believes it is for inflammation. Family History: Unchanged from Admission Social History: Unchanged from Admission Past Medical History: Unchanged from Admission Objective Active Medications: Acetaminophen (Tylenol Tab*) 650 mg PO Q4H PRN Albuterol (Ventolin 2.5 Mg/3 Ml Neb.Lois*) 2.5 mg INH Q4H PRN Alprazolam (Xanax Tab*) 0.25 mg PO TID PRN Atorvastatin Calcium (Lipitor*) 20 mg PO DAILY [facility] Calcium Carbonate (Tums*) 500 mg PO BID PRN Carvedilol (Coreg Tab*) 50 mg PO BID [facility] Diltiazem HCl (Cardizem Cd Cap*) 180 mg PO DAILY [facility] Docusate Sodium (Colace Cap*) 100 mg PO BID PRN Ferrous Sulfate (Ferrous Sulfate Tab*) 325 mg PO DAILY [facility] Gabapentin (Neurontin Cap(*)) 200 mg PO TID [facility] Heparin Sodium (Porcine) (Heparin Vial(*)) 0 units IV .PER PROTOCOL [facility] Heparin Sodium (Porcine) (Heparin Flush Picc/Ml/Cvc(*)) 1 - 3 ml FLUSH 0600, 1800 [facility] Pto Nf Med* ( Ibrutinib [Imbruvica ] 560 Mg) 560 mg PO DAILY [facility] Ondansetron HCl (Zofran Inj*) 4 mg IV Q6H PRN Oxycodone HCl (Roxycodone Tab*) 2.5 mg PO Q6H PRN Polyethylene Glycol/Electrolytes (Miralax*) 17 gm PO DAILY PRN Prednisone (Deltasone Tab*) 5 mg PO QAM [facility] Quetiapine Fumarate (Seroquel Tab*) 100 mg PO BEDTIME [facility] Spironolactone (Aldactone Tab*) 50 mg PO DAILY [facility] Torsemide (Demadex*) 20 mg PO BID [facility] Tramadol HCl (Ultram*) 25 mg PO Q6H PRN Warfarin Sodium (Coumadin Tab(*)) 15 mg PO MoTuWeThFr@1700 [facility] Warfarin Sodium (Coumadin Tab(*)) 10 mg PO SuSa@1700 [facility] Vital Signs: Temp Pulse Resp BP Pulse Ox 97.9 F 72 14 110/50 100 11/26/17 07:53 11/26/17 07:53 11/26/17 07:53 11/26/17 09:34 11/26/17 07:53 Oxygen Devices in Use Now: Nasal Cannula Appearance: Female lying in bed in NAD Eyes: No Scleral Icterus Ears/Nose/Mouth/Throat: Mucous Membranes Moist Neck: Trachea Midline Respiratory: Symmetrical Chest Expansion and Respiratory Effort, Clear to Auscultation Cardiovascular: NL Sounds; No Murmurs; No JVD, No Edema Abdominal: NL Sounds; No Tenderness; No Distention Lymphatic: No Cervical Adenopathy Extremities: No Edema Skin: No Rash or Ulcers Neurological: Alert and Oriented x 3, NL Muscle Strength and Tone Nutrition: Taking PO's Result Diagrams: 11/25/17 05:30 11/26/17 10:00 Assess/Plan/Problems-Billing Assessment: Ms. Robledo is a 62yo female with a PMH for CHF, COPD, CKD, anemia, mantle cell lymphoma who presents after several falls from weakness after discharge from [facility] as well as significant AMS which has now resolved, thought to be secondary to polypharmacy and acute kidney injury. - Patient Problems (1) Altered mental status Comment: - Resolved. - Significantly encephalopathic on admission. Denies taking too much of a medication. Improved with decrease in psychoactive medications. Likely toxic encephalopathy from polypharmacy in the setting of GEORGE. Continue medications at decreased doses. (2) Acute kidney injury Comment: - Resolving. - Acute on chronic. FeNa suggests intrinsic process. Possibly ATN. Improving with hydration. Stop fluids for weight gain and monitor. Cret still increased form baseline. (3) Systolic and diastolic CHF, chronic Comment: - Asymptomatic. - LVEF 35-40% 10/2017. Appeared dry on admission with GEORGE and hypotension. Torsemide and Spironolactone have been resumed. (4) Chronic respiratory failure with hypoxia and hypercapnia Comment: - Stable. - Due to COPD. On 2L O2 at home per patient. (5) COPD (chronic obstructive pulmonary disease) Comment: - No Exacerbation. Nebulizers PRN. - Patient on prednisone 5mg po daily, suspect this is for COPD given recent exacerbation and chronic respiratory failure. Not prescribed at the end of the last hospitalization in October and she has not seen Dr. Larry since then. May be helpful to obtain records from Dr. Stuart's office on Wednesday. (6) History of pulmonary embolism Comment: - Continue coumadin, INR therapeutic, heparin gtt stopped. (7) Afib Comment: - Rate controlled on cardizem and coreg - Continue coumadin. - Follow with Dr. Garrido outpatient. (8) Mantle cell lymphoma Comment: - Continue with Ibrutinib. Follow with Oncology outpatient. (9) Anemia Comment: - Normocytic - At baseline. Possibly related to CKD, AOCD, Chemotherapy. - Continue iron PO. (10) Hypertension Comment: - SBP 80-130s. BP intermittently low, consistent levels with previous hospitalization. - Plan to check orthostatics as could be contributing to falls. Will decrease spironolactone and torsemide by half. Continue carvedilol and diltiazem with hold parameters. Will likely need additional adjustment based on clinical course. (11) Dyslipidemia Comment: - Continue statin. (12) FRANCIS (obstructive sleep apnea) Comment: - Continue CPAP. (13) Physical deconditioning Comment: - Improving slowly. - Frequent falls due to weakness without focality. - Continue PT. Will need to be able to do stairs before discharge or will need rehab. Not able to do stairs today. (14) DVT prophylaxis Comment: - Heparin Drip. INR 2.11 this AM. (15) Full code status Comment: Status and Disposition: Inpatient, Will likely need ROXANA at discharge.
[2017-11-26 10:36] LABS: INR 2.58 (0.77-1.02)
[2017-11-26 10:52] LABS: EGFR Non-African American 26.6 (>60)
[2017-11-26] MEDS: Warfarin TAB(*) 5 MG PO SCH (17:52)
[2017-11-26] MEDS: ALPRAZolam TAB* 0.25 MG PO PRN (19:49)
[2017-11-26] MEDS: QUEtiapine TAB* 100 MG PO SCH (21:16)
[2017-11-27] MEDS: oxyCODONE TAB* 5 MG TAB PO PRN ×3 (02:51→17:59)
[2017-11-27] MEDS: traMADol TAB* 50 MG PO PRN ×3 (05:26→20:41)
[2017-11-27] MEDS: ALPRAZolam TAB* 0.25 MG PO PRN ×3 (05:30→20:41)
[2017-11-27] MEDS: Diltiazem CD CAP* 180 MG PO SCH (07:41)
[2017-11-27] MEDS: Spironolactone TAB* 25 MG PO SCH (08:15)
[2017-11-27] MEDS: Gabapentin CAP(*) 100 MG PO SCH ×3 (08:15→20:40)
[2017-11-27] MEDS: Ferrous Sulfate TAB* 325 MG PO SCH (08:15)
[2017-11-27] MEDS: Carvedilol TAB* 25 MG PO SCH ×2 (08:16→20:40)
[2017-11-27] MEDS: IBRUTINIB 560 MG PO SCH (08:16)
[2017-11-27] MEDS: Torsemide TAB* 20 MG PO SCH ×2 (08:16→20:39)
[2017-11-27] MEDS: Acetaminophen TAB* 325 MG PO PRN (08:16)
[2017-11-27] MEDS: Atorvastatin* 20 MG TAB PO SCH (08:16)
[2017-11-27] MEDS: predniSONE TAB* 5 MG PO SCH (08:16)
--- NOTE | 2017-11-27 12:19 | PN ---
Subjective Date of Service: 11/27/17 Interval History: She reports she feels better today initially then became weepy stating she feels discouraged d/t her falls. She states she is not sure if she was discharged home too early form [facility]. her biggest complaint today is that her left arm hurts d/t her IV infiltrating yesterday. per nursing staff she lays on her right arm and has to be continuously reminded not to lay on it. Denies fever or chills. no SOB/P. No abdominal pain N/V/D. Reports good appetite Family History: Unchanged from Admission Social History: Unchanged from Admission Past Medical History: Unchanged from Admission Objective Active Medications: Acetaminophen (Tylenol Tab*) 650 mg PO Q4H PRN PRN Reason: FEVER/PAIN Last Admin: 11/27/17 08:16 Dose: 650 mg Albuterol (Ventolin 2.5 Mg/3 Ml Neb.Lois*) 2.5 mg INH Q4H PRN PRN Reason: SOB/WHEEZING Alprazolam (Xanax Tab*) 0.25 mg PO TID PRN PRN Reason: ANXIETY Last Admin: 11/27/17 05:30 Dose: 0.25 mg Atorvastatin Calcium (Lipitor*) 20 mg PO DAILY [facility] Last Admin: 11/27/17 08:16 Dose: 20 mg Calcium Carbonate (Tums*) 500 mg PO BID PRN PRN Reason: heartburn Carvedilol (Coreg Tab*) 50 mg PO BID [facility] Last Admin: 11/27/17 08:16 Dose: 50 mg Diltiazem HCl (Cardizem Cd Cap*) 180 mg PO DAILY [facility] Last Admin: 11/27/17 07:41 Dose: Not Given Docusate Sodium (Colace Cap*) 100 mg PO BID PRN PRN Reason: CONSTIPATION Ferrous Sulfate (Ferrous Sulfate Tab*) 325 mg PO DAILY [facility] Last Admin: 11/27/17 08:15 Dose: 325 mg Gabapentin (Neurontin Cap(*)) 200 mg PO TID [facility] Last Admin: 11/27/17 08:15 Dose: 200 mg Heparin Sodium (Porcine) (Heparin Vial(*)) 0 units IV .PER PROTOCOL [facility] Last Admin: 11/26/17 04:05 Dose: 6,350 units Heparin Sodium (Porcine) (Heparin Flush Picc/Ml/Cvc(*)) 1 - 3 ml FLUSH 0600, 1800 [facility] PRN Reason: Protocol Last Admin: 11/27/17 05:33 Dose: Not Given Pto Nf Med* ( Ibrutinib [Imbruvica ] 560 Mg) 560 mg PO DAILY [facility] Last Admin: 11/27/17 08:16 Dose: 560 mg Ondansetron HCl (Zofran Inj*) 4 mg IV Q6H PRN PRN Reason: NAUSEA Oxycodone HCl (Roxycodone Tab*) 2.5 mg PO Q6H PRN PRN Reason: PAIN Last Admin: 11/27/17 11:29 Dose: 2.5 mg Polyethylene Glycol/Electrolytes (Miralax*) 17 gm PO DAILY PRN PRN Reason: CONSTIPATION Prednisone (Deltasone Tab*) 5 mg PO QAM [facility] Last Admin: 11/27/17 08:16 Dose: 5 mg Quetiapine Fumarate (Seroquel Tab*) 100 mg PO BEDTIME [facility] Last Admin: 11/26/17 21:16 Dose: 100 mg Spironolactone (Aldactone Tab*) 25 mg PO DAILY [facility] Last Admin: 11/27/17 08:15 Dose: 25 mg Torsemide (Demadex*) 10 mg PO BID [facility] Last Admin: 11/27/17 08:16 Dose: 10 mg Tramadol HCl (Ultram*) 25 mg PO Q6H PRN PRN Reason: PAIN Last Admin: 11/27/17 05:26 Dose: 25 mg Warfarin Sodium (Coumadin Tab(*)) 15 mg PO MoTuWeThFr@1700 [facility] PRN Reason: Protocol Last Admin: 11/26/17 17:52 Dose: 15 mg Warfarin Sodium (Coumadin Tab(*)) 10 mg PO SuSa@1700 [facility] PRN Reason: Protocol Vital Signs - 8 hr 11/27/17 11/27/17 11/27/17 04:55 05:26 05:30 Temperature Pulse Rate Respiratory 16 20 20 Rate Blood Pressure (mmHg) O2 Sat by Pulse Oximetry 11/27/17 11/27/17 11/27/17 07:21 07:22 07:32 Temperature 97.9 F Pulse Rate 66 Respiratory 16 16 15 Rate Blood Pressure 80/43 (mmHg) O2 Sat by Pulse 98 Oximetry 11/27/17 11/27/17 11/27/17 07:36 08:08 08:15 Temperature Pulse Rate Respiratory 16 Rate Blood Pressure 92/60 (mmHg) O2 Sat by Pulse 98 Oximetry 11/27/17 11/27/17 11/27/17 11:07 11:13 11:23 Temperature 97.5 F Pulse Rate 73 Respiratory 14 16 Rate Blood Pressure 85/52 102/54 (mmHg) O2 Sat by Pulse 97 Oximetry 11/27/17 11:29 Temperature Pulse Rate Respiratory 16 Rate Blood Pressure (mmHg) O2 Sat by Pulse Oximetry Oxygen Devices in Use Now: Nasal Cannula Appearance: obese female A+O x3, weepy, anxious Eyes: No Scleral Icterus, PERRLA Respiratory: Symmetrical Chest Expansion and Respiratory Effort, Clear to Auscultation Cardiovascular: NL Sounds; No Murmurs; No JVD, RRR, No Edema Abdominal: NL Sounds; No Tenderness; No Distention, - - obese Extremities: No Edema, No Clubbing, Cyanosis Skin: - - right back shoulder has large area of ecchymosis. Above left AC has CD +I dressing (from where midline was pulled) that is mildy swollen, warm, tender to touch. Neurological: Alert and Oriented x 3, NL Sensation, NL Muscle Strength and Tone Nutrition: Taking PO's Result Diagrams: 11/25/17 05:30 11/26/17 10:00 Assess/Plan/Problems-Billing Assessment: Ms. Robledo is a 62yo female with a PMH for CHF, COPD, CKD, anemia, mantle cell lymphoma who presents after several falls from weakness after discharge from [facility] as well as significant AMS which has now resolved, thought to be secondary to polypharmacy and acute kidney injury. - Patient Problems (1) Altered mental status Comment: - Resolved. - Significantly encephalopathic on admission. Denies taking too much of a medication. Improved with decrease in psychoactive medications. Likely toxic encephalopathy from polypharmacy in the setting of GEORGE. Continue medications at decreased doses. (2) Acute kidney injury Comment: - Resolving. - Acute on chronic. FeNa suggests intrinsic process. Possibly ATN. Improved with hydration. Stop fluids for weight gain and monitor. Cret still increased from baseline. Renally dose meds (3) Afib Comment: - Rate controlled on cardizem and coreg - Continue coumadin. - Follow with Dr. Garrido outpatient. (4) Anemia Comment: - Normocytic - At baseline. Possibly related to CKD, AOCD, Chemotherapy. - Continue iron PO. (5) History of pulmonary embolism Comment: - Continue coumadin, now INR therapeutic, was bridged on admission with heparin gtt stopped - per pt she thought she was taking her couamdin at home. (6) Mantle cell lymphoma Comment: - Continue with Ibrutinib. Follow with Oncology outpatient. (7) COPD (chronic obstructive pulmonary disease) Comment: - No Exacerbation. Nebulizers PRN. - Patient on prednisone 5mg po daily, suspect this is for COPD given recent exacerbation and chronic respiratory failure. Not prescribed at the end of the last hospitalization in October and she has not seen Dr. Larry since then. Will obtain records from Dr. Stuart's office on Wednesday. (8) Physical deconditioning Comment: - Improving slowly. - Frequent falls due to weakness without focality. - Continue PT. Will need to be able to do stairs before discharge or will need rehab. Not able to do stairs today. (9) Dyslipidemia Comment: - Continue statin. (10) Hypertension Comment: - SBP 80-130s. BP intermittently low, consistent levels with previous hospitalization. - orthostatics negative. Continue decrease spironolactone and torsemide by half. Continue carvedilol and diltiazem with hold parameters. Will likely need additional adjustment based on clinical course. (11) FRANCIS (obstructive sleep apnea) Comment: - Continue CPAP. Noncompliant (12) Systolic and diastolic CHF, chronic Comment: - euvolemic. - LVEF 35-40% 10/2017. Appeared dry on admission with GEORGE and hypotension. Torsemide and Spironolactone have been resumed. (13) Full code status Comment: (14) DVT prophylaxis Comment: - continue coumdin. INR 2.5 Status and Disposition: Inpatient, Will likely need ROXANA at discharge.
[2017-11-27] MEDS ORDERED: Warfarin TAB(*) 5 MG PO SCH (17:00)
--- NOTE | 2017-11-27 20:39 | RAD ---
HISTORY: hc of PE, was off coumadin, arm swollen COMPARISONS: None relevant TECHNIQUE: Multiple transverse and longitudinal ultrasound images were obtained of the left upper extremity from the level of the internal jugular vein inferiorly through to the infra-cubital veins using grayscale, color Doppler, and spectral Doppler imaging with and without compression and with augmentation. Comparison images were obtained of the contralateral internal jugular vein and subclavian vein. FINDINGS: VEINS: The venous system of the left upper extremity is compressible throughout its course, with normal flow on color Doppler imaging and normal response to augmentation on spectral Doppler imaging. SOFT TISSUES: Unremarkable. OTHER FINDINGS: None. IMPRESSION: NO LEFT UPPER EXTREMITY DEEP VEIN THROMBOSIS
[2017-11-27] MEDS: QUEtiapine TAB* 100 MG PO SCH (20:40)
[2017-11-28] MEDS: oxyCODONE TAB* 5 MG TAB PO PRN ×3 (05:53→20:36)
[2017-11-28 07:39] LABS: Hematocrit 25 % (35-47); Hemoglobin 8.1 g/dl (12.0-16.0); Mean Corpuscular HGB Conc 32 g/dl (31-36); Mean Corpuscular Hemoglobin 26 pg (27-31); Mean Corpuscular Volume 80 fL (80-97); Mean Platelet Volume 10.9 um3 (7.4-10.4); Platelet Count 87 10^3/ul (150-450); Red Blood Count 3.11 10^6/ul (4.00-5.40); Red Cell Distribution Width 18 % (10.5-15)
[2017-11-28 07:47] LABS: INR 3.05 (0.77-1.02)
[2017-11-28 07:59] LABS: ABS Basophils 0.1 10^3/ul (0-0.2); ABS Eosinophils 0.1 10^3/ul (0-0.6); ABS Lymphocytes 1.9 10^3/ul (1.0-4.8); ABS Monocytes 0.6 10^3/ul (0-0.8); ABS Neutrophils 5.3 10^3/ul (1.5-7.7); ABS Nucleated RBC 0 10^3/ul; Eosinophil % 1.7 % (0-6); Nucleated Red Blood Cells % 0.2
[2017-11-28 08:13] LABS: EGFR Non-African American 32.4 (>60)
[2017-11-28] MEDS: traMADol TAB* 50 MG PO PRN ×2 (08:59→16:22)
[2017-11-28] MEDS: Ferrous Sulfate TAB* 325 MG PO SCH (09:00)
[2017-11-28] MEDS: Spironolactone TAB* 25 MG PO SCH (09:01)
[2017-11-28] MEDS: Atorvastatin* 20 MG TAB PO SCH (09:01)
[2017-11-28] MEDS: Gabapentin CAP(*) 100 MG PO SCH ×3 (09:01→20:35)
[2017-11-28] MEDS: predniSONE TAB* 5 MG PO SCH (09:02)
[2017-11-28] MEDS: Torsemide TAB* 20 MG PO SCH ×2 (09:02→20:35)
[2017-11-28] MEDS: IBRUTINIB 560 MG PO SCH (09:03)
[2017-11-28] MEDS: Diltiazem CD CAP* 180 MG PO SCH (09:06)
[2017-11-28] MEDS: Carvedilol TAB* 25 MG PO SCH ×2 (09:06→20:36)
[2017-11-28] MEDS ORDERED: NS 0.9% 1000 ML* 1,000 ML IV SCH (11:45)
[2017-11-28] MEDS ORDERED: NS 0.9% 1000 ML* 1,000 ML IV ONE (12:00)
--- NOTE | 2017-11-28 15:45 | PN ---
Subjective Date of Service: 11/28/17 Interval History: Patient reports she "feels terrible". She states she cant tell me why. She denies SOB/CP. no fevers, maybe chills. She continues to have generalized weakness, she does states she feels better then when she came in. She reports dizziness when she stands. Today her blood pressures are noted to be soft and she refused a placement of a PICC line (she had two failed midlines) d/t that we "were lying to her about her blood pressure" stating they are always like that. I discussed at length with her and her she may feel better with fluid and stated she would "think about it". Pt c/o of her LUE where midline infiltrated to be "tight and swollen" about the same as yesterday. She is refusing warm packs to area becoming very teary stating "she doesnt want to". I discussed this may help it resolves and she said "I will think about it". at bedside trying to encourage her. Reports good appetite. No Abdominal pain. NL BMs. No nausea Family History: Unchanged from Admission Social History: Unchanged from Admission Past Medical History: Unchanged from Admission Objective Active Medications: Acetaminophen (Tylenol Tab*) 650 mg PO Q4H PRN PRN Reason: FEVER/PAIN Last Admin: 11/27/17 08:16 Dose: 650 mg Albuterol (Ventolin 2.5 Mg/3 Ml Neb.Lois*) 2.5 mg INH Q4H PRN PRN Reason: SOB/WHEEZING Alprazolam (Xanax Tab*) 0.25 mg PO TID PRN PRN Reason: ANXIETY Last Admin: 11/27/17 20:41 Dose: 0.25 mg Atorvastatin Calcium (Lipitor*) 20 mg PO DAILY [facility] Last Admin: 11/28/17 09:01 Dose: 20 mg Calcium Carbonate (Tums*) 500 mg PO BID PRN PRN Reason: heartburn Carvedilol (Coreg Tab*) 50 mg PO BID [facility] Last Admin: 11/28/17 09:06 Dose: Not Given Diltiazem HCl (Cardizem Cd Cap*) 180 mg PO DAILY [facility] Last Admin: 11/28/17 09:06 Dose: Not Given Docusate Sodium (Colace Cap*) 100 mg PO BID PRN PRN Reason: CONSTIPATION Ferrous Sulfate (Ferrous Sulfate Tab*) 325 mg PO DAILY [facility] Last Admin: 11/28/17 09:00 Dose: 325 mg Gabapentin (Neurontin Cap(*)) 200 mg PO TID [facility] Last Admin: 11/28/17 13:23 Dose: 200 mg Heparin Sodium (Porcine) (Heparin Vial(*)) 0 units IV .PER PROTOCOL [facility] Last Admin: 11/26/17 04:05 Dose: 6,350 units Heparin Sodium (Porcine) (Heparin Flush Picc/Ml/Cvc(*)) 1 - 3 ml FLUSH 0600, 1800 [facility] PRN Reason: Protocol Last Admin: 11/28/17 05:41 Dose: Not Given Sodium Chloride (Ns 0.9% 1000 Ml*) 1,000 mls @ 150 mls/hr IV PER RATE [facility] Stop: 11/28/17 18:24 Sodium Chloride (Ns 0.9% 1000 Ml*) 1,000 mls @ 100 mls/hr IV .PER RATE ONE Stop: 11/28/17 21:59 Pto Nf Med* ( Ibrutinib [Imbruvica ] 560 Mg) 560 mg PO DAILY [facility] Last Admin: 11/28/17 09:03 Dose: 560 mg Ondansetron HCl (Zofran Inj*) 4 mg IV Q6H PRN PRN Reason: NAUSEA Oxycodone HCl (Roxycodone Tab*) 2.5 mg PO Q6H PRN PRN Reason: PAIN Last Admin: 11/28/17 13:24 Dose: 2.5 mg Polyethylene Glycol/Electrolytes (Miralax*) 17 gm PO DAILY PRN PRN Reason: CONSTIPATION Prednisone (Deltasone Tab*) 5 mg PO QAM [facility] Last Admin: 11/28/17 09:02 Dose: 5 mg Quetiapine Fumarate (Seroquel Tab*) 100 mg PO BEDTIME [facility] Last Admin: 11/27/17 20:40 Dose: 100 mg Spironolactone (Aldactone Tab*) 25 mg PO DAILY [facility] Last Admin: 11/28/17 09:01 Dose: 25 mg Torsemide (Demadex*) 10 mg PO BID [facility] Last Admin: 11/28/17 09:02 Dose: 10 mg Tramadol HCl (Ultram*) 25 mg PO Q6H PRN PRN Reason: PAIN Last Admin: 11/28/17 08:59 Dose: 25 mg Warfarin Sodium (Coumadin Tab(*)) 15 mg PO MoTuWeThFr@1700 [facility] PRN Reason: Protocol Last Admin: 11/26/17 17:52 Dose: 15 mg Warfarin Sodium (Coumadin Tab(*)) 10 mg PO SuSa@1700 [facility] PRN Reason: Protocol Vital Signs - 8 hr 11/28/17 11/28/17 11/28/17 07:53 07:55 08:00 Temperature Pulse Rate Respiratory 18 18 Rate Blood Pressure (mmHg) O2 Sat by Pulse 98 Oximetry 11/28/17 11/28/17 11/28/17 08:59 09:01 10:59 Temperature Pulse Rate Respiratory 18 18 16 Rate Blood Pressure (mmHg) O2 Sat by Pulse Oximetry 11/28/17 11/28/17 11/28/17 11:01 11:22 11:24 Temperature 97.4 F Pulse Rate 86 Respiratory 16 15 Rate Blood Pressure 88/60 (mmHg) O2 Sat by Pulse 100 Oximetry 11/28/17 11/28/17 11/28/17 13:00 13:08 13:23 Temperature Pulse Rate Respiratory 16 Rate Blood Pressure 92/60 92/60 (mmHg) O2 Sat by Pulse Oximetry 11/28/17 13:24 Temperature Pulse Rate Respiratory 16 Rate Blood Pressure (mmHg) O2 Sat by Pulse Oximetry Oxygen Devices in Use Now: Nasal Cannula Appearance: morbidly obese female sitting up on the side of the bed in NAD, A+O x3 Eyes: No Scleral Icterus, PERRLA Ears/Nose/Mouth/Throat: Mucous Membranes Moist Neck: NL Appearance and Movements; NL JVP Respiratory: Symmetrical Chest Expansion and Respiratory Effort, Clear to Auscultation Cardiovascular: NL Sounds; No Murmurs; No JVD, RRR, - - trace-1+ edema B/L LE Abdominal: NL Sounds; No Tenderness; No Distention, - - obese Extremities: No Clubbing, Cyanosis Skin: - - LUE around where midline was pulled is noted to have no erythema ( resolved from yesterday), still mildy swollen but appears a little better than yesterday, no noted warmth. Neurological: Alert and Oriented x 3, NL Sensation, NL Muscle Strength and Tone Nutrition: Taking PO's Result Diagrams: 11/28/17 07:03 11/28/17 07:03 Assess/Plan/Problems-Billing Assessment: Ms. Robledo is a 62yo female with a PMH for CHF, COPD, CKD, anemia, mantle cell lymphoma who presents after several falls from weakness after discharge from [facility] as well as significant AMS which has now resolved, thought to be secondary to polypharmacy and acute kidney injury. - Patient Problems (1) Altered mental status Comment: - Resolved. - Significantly encephalopathic on admission. Denies taking too much of a medication. Improved mentation with decrease in psychoactive medications. Likely toxic encephalopathy from polypharmacy in the setting of GEORGE. Continue medications at decreased doses. (2) Acute kidney injury Comment: - Resolving. - Acute on chronic. FeNa suggests intrinsic process. Possibly ATN. Improved with hydration. Stop fluids for weight gain and monitor. Cret still increased from baseline. (3) Afib Comment: - Rate controlled on cardizem and coreg - Continue coumadin - on high doses of coumadin - looking back at her trend of INRs and hospiatlizations it is unclear and suspicous she may not have been taking her coumadin. It is possible she was not dc home form [facility] on it. Monitor INRs very closely with the high home dose. Today INR 3.05, continued home dose and plan to recheck in am and may need to adjust as needed. - Follow with Dr. Garrido outpatient. (4) Anemia Comment: - Normocytic - At baseline. Possibly related to CKD, AOCD, Chemotherapy. - Continue iron PO. (5) History of pulmonary embolism Comment: - Continue coumadin, now INR therapeutic, was bridged on admission with heparin gtt stopped - per pt she thought she was taking her couamdin at home. (6) Mantle cell lymphoma Comment: - Continue with Ibrutinib. Follows with Dr. Jc. Last seen maybe 1 month ago per patient. Abnormal cells today. Will ask oncology to round on her tomorrow and look at her blood work. May be helpful for their input on her baseline since they her well. (7) COPD (chronic obstructive pulmonary disease) Comment: - No Exacerbation. Nebulizers PRN. - Patient on prednisone 5mg po daily, suspect this is for COPD given recent exacerbation and chronic respiratory failure. Not prescribed at the end of the last hospitalization in October and she has not seen Dr. Larry since then. Will obtain records from Dr. Stuart's office on Wednesday. (8) Physical deconditioning Comment: - Improving slowly. - Frequent falls due to weakness without focality. - Continue PT. Will need to be able to do stairs before discharge or will need rehab. Not able to do stairs today. (9) Dyslipidemia Comment: - Continue statin. (10) Hypertension Comment: - SBP 80-130s. BP intermittently low, consistent levels with previous hospitalization. - orthostatics negative. Continue decrease spironolactone and torsemide by half. Continue carvedilol and diltiazem with hold parameters. Will likely need additional adjustment based on clinical course. (11) FRANCIS (obstructive sleep apnea) Comment: - Continue CPAP. Noncompliant (12) Systolic and diastolic CHF, chronic Comment: - euvolemic. - LVEF 35-40% 10/2017. Appeared dry on admission with GEORGE and hypotension. Torsemide and Spironolactone have been resumed. Obtain Echo wednesday (13) Full code status Comment: (14) DVT prophylaxis Comment: - continue coumadin. INR 3.05 Status and Disposition: Inpatient, Will likely need ROXANA at discharge.
[2017-11-28] MEDS: ALPRAZolam TAB* 0.25 MG PO PRN ×2 (16:28→22:06)
[2017-11-28] MEDS ORDERED: Warfarin TAB(*) 10 MG PO SCH (17:00)
[2017-11-28] MEDS: QUEtiapine TAB* 100 MG PO SCH (20:37)
[2017-11-29] MEDS: oxyCODONE TAB* 5 MG TAB PO PRN ×3 (02:31→16:24)
[2017-11-29] MEDS: traMADol TAB* 50 MG PO PRN ×2 (05:38→13:13)
[2017-11-29 06:47] LABS: ABS Basophils 0.1 10^3/ul (0-0.2); ABS Eosinophils 0.2 10^3/ul (0-0.6); ABS Lymphocytes 2.1 10^3/ul (1.0-4.8); ABS Monocytes 0.6 10^3/ul (0-0.8); ABS Neutrophils 4.9 10^3/ul (1.5-7.7); ABS Nucleated RBC 0 10^3/ul; Hematocrit 26 % (35-47); Hemoglobin 8.3 g/dl (12.0-16.0); INR 2.71 (0.77-1.02); Mean Corpuscular HGB Conc 32 g/dl (31-36); Mean Corpuscular Hemoglobin 26 pg (27-31); Mean Corpuscular Volume 80 fL (80-97); Nucleated Red Blood Cells % 0.4; Platelet Count 101 10^3/ul (150-450); Red Blood Count 3.21 10^6/ul (4.00-5.40); Red Cell Distribution Width 19 % (10.5-15); White Blood Count 7.8 10^3/ul (3.5-10.8)
[2017-11-29 07:01] LABS: EGFR Non-African American 31.3 (>60)
[2017-11-29] MEDS: Gabapentin CAP(*) 100 MG PO SCH ×3 (09:16→21:20)
[2017-11-29] MEDS: predniSONE TAB* 5 MG PO SCH (09:17)
[2017-11-29] MEDS: Ferrous Sulfate TAB* 325 MG PO SCH (09:17)
[2017-11-29] MEDS: Atorvastatin* 20 MG TAB PO SCH (09:17)
[2017-11-29] MEDS: Acetaminophen TAB* 325 MG PO PRN ×3 (09:23→21:21)
[2017-11-29] MEDS: IBRUTINIB 560 MG PO SCH (09:24)
[2017-11-29] MEDS: Carvedilol TAB* 25 MG PO SCH ×2 (09:46→21:22)
[2017-11-29] MEDS: Diltiazem CD CAP* 180 MG PO SCH (09:47)
--- NOTE | 2017-11-29 10:37 | PN ---
Progress Note - Progress Note Date of Service: 11/29/17 SOAP: Subjective: []Feels terrible. Tearful and doesn't think anyone is doing anything to help. Lots of pain mostly to areas affected by fall. Feels hopeless and doesn't want to go to SNF. Medications: Acetaminophen (Tylenol Tab*) 650 mg PO Q4H PRN PRN Reason: FEVER/PAIN Last Admin: 11/29/17 09:23 Dose: 650 mg Albuterol (Ventolin 2.5 Mg/3 Ml Neb.Lois*) 2.5 mg INH Q4H PRN PRN Reason: SOB/WHEEZING Alprazolam (Xanax Tab*) 0.25 mg PO TID PRN PRN Reason: ANXIETY Last Admin: 11/28/17 22:06 Dose: 0.25 mg Atorvastatin Calcium (Lipitor*) 20 mg PO DAILY [facility] Last Admin: 11/29/17 09:17 Dose: 20 mg Calcium Carbonate (Tums*) 500 mg PO BID PRN PRN Reason: heartburn Carvedilol (Coreg Tab*) 50 mg PO BID [facility] Last Admin: 11/29/17 09:46 Dose: Not Given Diltiazem HCl (Cardizem Cd Cap*) 180 mg PO DAILY [facility] Last Admin: 11/29/17 09:47 Dose: Not Given Docusate Sodium (Colace Cap*) 100 mg PO BID PRN PRN Reason: CONSTIPATION Ferrous Sulfate (Ferrous Sulfate Tab*) 325 mg PO DAILY [facility] Last Admin: 11/29/17 09:17 Dose: 325 mg Gabapentin (Neurontin Cap(*)) 200 mg PO TID [facility] Last Admin: 11/29/17 09:16 Dose: 200 mg Heparin Sodium (Porcine) (Heparin Vial(*)) 0 units IV .PER PROTOCOL [facility] Last Admin: 11/26/17 04:05 Dose: 6,350 units Heparin Sodium (Porcine) (Heparin Flush Picc/Ml/Cvc(*)) 1 - 3 ml FLUSH 0600, 1800 [facility] PRN Reason: Protocol Last Admin: 11/29/17 05:11 Dose: Not Given Ondansetron HCl (Zofran Inj*) 4 mg IV Q6H PRN PRN Reason: NAUSEA Oxycodone HCl (Roxycodone Tab*) 2.5 mg PO Q6H PRN PRN Reason: PAIN Last Admin: 11/29/17 09:22 Dose: 2.5 mg Polyethylene Glycol/Electrolytes (Miralax*) 17 gm PO DAILY PRN PRN Reason: CONSTIPATION Prednisone (Deltasone Tab*) 5 mg PO QAM [facility] Last Admin: 11/29/17 09:17 Dose: 5 mg Quetiapine Fumarate (Seroquel Tab*) 100 mg PO BEDTIME [facility] Last Admin: 11/28/17 20:37 Dose: 100 mg Spironolactone (Aldactone Tab*) 25 mg PO DAILY [facility] Last Admin: 11/28/17 09:01 Dose: 25 mg Torsemide (Demadex*) 10 mg PO BID [facility] Last Admin: 11/28/17 20:35 Dose: 10 mg Tramadol HCl (Ultram*) 25 mg PO Q6H PRN PRN Reason: PAIN Last Admin: 11/29/17 05:38 Dose: 25 mg Warfarin Sodium (Coumadin Tab(*)) 15 mg PO MoTuWeThFr@1700 [facility] PRN Reason: Protocol Last Admin: 11/26/17 17:52 Dose: 15 mg Warfarin Sodium (Coumadin Tab(*)) 10 mg PO SuSa@1700 [facility] PRN Reason: Protocol Last Admin: 11/28/17 17:40 Dose: 10 mg Objective: [] Vital Signs Temp Pulse Resp BP Pulse Ox 97.6 F 83 18 87/53 97 11/29/17 07:34 11/29/17 07:34 11/29/17 09:45 11/29/17 07:34 11/29/17 08:25 A&Ox3, neuro grossly non-focal, some confusion regarding specifics of visits, though aware of ultimate plan HRI, distant heart sounds LS dim. to bases, no wheeze or rhonchi noted Large hematoma Right shoulder, left shoulder, bilat. upper arms from infiltrated IVs - limited skin exam Laboratory Results - last 24 hr 11/29/17 11/29/17 11/29/17 06:23 06:23 06:23 WBC 7.8 RBC 3.21 L Hgb 8.3 L Hct 26 L MCV 80 MCH 26 L MCHC 32 RDW 19 H Plt Count 101 L MPV 11.0 H Neut % (Auto) 62.5 Lymph % (Auto) 27.0 [place] % (Auto) 7.4 H Eos % (Auto) 2.0 Baso % (Auto) 1.1 Absolute Neuts (auto) 4.9 Absolute Lymphs (auto) 2.1 Absolute Monos (auto) 0.6 Absolute Eos (auto) 0.2 Absolute Basos (auto) 0.1 Absolute Nucleated RBC 0 Nucleated RBC % 0.4 INR (Anticoag Therapy) 2.71 H Sodium 138 Potassium 4.0 Chloride 98 L Carbon Dioxide 33 H Anion Gap 7 BUN 54 H Creatinine 1.66 H Est GFR ( Amer) 40.3 Est GFR (Non-Af Amer) 31.3 BUN/Creatinine Ratio 32.5 H Glucose 92 Calcium 8.8 Assessment: []62 yo female with multiple co-morbidites followed by oncology due to diagnosis of mantle cell lymphoma recently progressed on imbruvica with apparent stable disease, however unfortunately with multiple admissions over last 6 months for significant cardiac and pulm. dysfunction. Overall she has a progressive decline in performance status. Plan: []1. 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 Check erythropoetin level as anemia may be partially related to poor kidney function, though I suspect some is related to her hematomas 3. Pain management discussed with hospitalist, could consider addition of Cymbalta as she is notably depressed and this can often help a lot with chronic pain, however I would be cautious with cont.'d poly-pharmacy; benefit of cont.' d to decrease meds likely higher than additional meds, agree with avoiding narcotics as possible. We will cont. to follow and would like to see her back in the clinic in approx. 1 mo. with labs to re-eval. Imbruvica
[2017-11-29] MEDS: Spironolactone TAB* 25 MG PO SCH (11:15)
[2017-11-29] MEDS: Torsemide TAB* 20 MG PO SCH ×2 (11:16→21:22)
--- NOTE | 2017-11-29 14:25 | PN ---
Subjective Date of Service: 11/29/17 Interval History: Patient states that she is feeling "terrible". reports that she feel like she is not getting the treatment that she needs. very tearful, concerned about falling at home. Patient states that she does not want to go the a residential for rehab, is very upset about that possibility. reports pain in bilat arms, shoulders and knees. Denies chest pain or shortness of breath. Denies abd pain, N/v/d. Denies dizziness. Family History: Unchanged from Admission Social History: Unchanged from Admission Past Medical History: Unchanged from Admission Objective Active Medications: Acetaminophen (Tylenol Tab*) 650 mg PO Q4H PRN PRN Reason: FEVER/PAIN Last Admin: 11/29/17 09:23 Dose: 650 mg Albuterol (Ventolin 2.5 Mg/3 Ml Neb.Lois*) 2.5 mg INH Q4H PRN PRN Reason: SOB/WHEEZING Alprazolam (Xanax Tab*) 0.25 mg PO TID PRN PRN Reason: ANXIETY Last Admin: 11/28/17 22:06 Dose: 0.25 mg Atorvastatin Calcium (Lipitor*) 20 mg PO DAILY [facility] Last Admin: 11/29/17 09:17 Dose: 20 mg Calcium Carbonate (Tums*) 500 mg PO BID PRN PRN Reason: heartburn Carvedilol (Coreg Tab*) 50 mg PO BID [facility] Last Admin: 11/29/17 09:46 Dose: Not Given Diltiazem HCl (Cardizem Cd Cap*) 180 mg PO DAILY [facility] Last Admin: 11/29/17 09:47 Dose: Not Given Docusate Sodium (Colace Cap*) 100 mg PO BID PRN PRN Reason: CONSTIPATION Ferrous Sulfate (Ferrous Sulfate Tab*) 325 mg PO DAILY [facility] Last Admin: 11/29/17 09:17 Dose: 325 mg Gabapentin (Neurontin Cap(*)) 200 mg PO TID [facility] Last Admin: 11/29/17 13:10 Dose: 200 mg Heparin Sodium (Porcine) (Heparin Vial(*)) 0 units IV .PER PROTOCOL [facility] Last Admin: 11/26/17 04:05 Dose: 6,350 units Heparin Sodium (Porcine) (Heparin Flush Picc/Ml/Cvc(*)) 1 - 3 ml FLUSH 0600, 1800 [facility] PRN Reason: Protocol Last Admin: 11/29/17 05:11 Dose: Not Given Ondansetron HCl (Zofran Inj*) 4 mg IV Q6H PRN PRN Reason: NAUSEA Oxycodone HCl (Roxycodone Tab*) 2.5 mg PO Q6H PRN PRN Reason: PAIN Last Admin: 11/29/17 09:22 Dose: 2.5 mg Polyethylene Glycol/Electrolytes (Miralax*) 17 gm PO DAILY PRN PRN Reason: CONSTIPATION Prednisone (Deltasone Tab*) 5 mg PO QAM [facility] Last Admin: 11/29/17 09:17 Dose: 5 mg Quetiapine Fumarate (Seroquel Tab*) 100 mg PO BEDTIME [facility] Last Admin: 11/28/17 20:37 Dose: 100 mg Spironolactone (Aldactone Tab*) 25 mg PO DAILY [facility] Last Admin: 11/29/17 11:15 Dose: Not Given Torsemide (Demadex*) 10 mg PO BID [facility] Last Admin: 11/29/17 11:16 Dose: Not Given Tramadol HCl (Ultram*) 25 mg PO Q6H PRN PRN Reason: PAIN Last Admin: 11/29/17 13:13 Dose: 25 mg Warfarin Sodium (Coumadin Tab(*)) 15 mg PO MoTuWeThFr@1700 [facility] PRN Reason: Protocol Last Admin: 11/26/17 17:52 Dose: 15 mg Warfarin Sodium (Coumadin Tab(*)) 10 mg PO SuSa@1700 [facility] PRN Reason: Protocol Last Admin: 11/28/17 17:40 Dose: 10 mg Vital Signs - 8 hr 11/29/17 11/29/17 11/29/17 07:34 08:00 08:25 Temperature 97.6 F Pulse Rate 83 Respiratory 16 18 Rate Blood Pressure 87/53 (mmHg) O2 Sat by Pulse 99 97 Oximetry 11/29/17 11/29/17 11/29/17 09:16 09:22 09:45 Temperature Pulse Rate Respiratory 18 18 18 Rate Blood Pressure (mmHg) O2 Sat by Pulse Oximetry 11/29/17 11/29/17 11/29/17 11:04 11:26 13:10 Temperature 98.1 F Pulse Rate 91 Respiratory 16 18 18 Rate Blood Pressure 86/67 (mmHg) O2 Sat by Pulse 97 Oximetry 11/29/17 13:13 Temperature Pulse Rate Respiratory 18 Rate Blood Pressure (mmHg) O2 Sat by Pulse Oximetry Oxygen Devices in Use Now: Nasal Cannula Appearance: obese femle, tearful, sitting in the chair Eyes: No Scleral Icterus Ears/Nose/Mouth/Throat: Clear Oropharnyx, Mucous Membranes Moist Neck: NL Appearance and Movements; NL JVP, Trachea Midline Respiratory: Symmetrical Chest Expansion and Respiratory Effort, Clear to Auscultation Cardiovascular: NL Sounds; No Murmurs; No JVD, No Edema Abdominal: NL Sounds; No Tenderness; No Distention Extremities: No Edema, No Clubbing, Cyanosis Skin: No Rash or Ulcers, - - bilat upper arms, shoulders with ecchymotic areas, mild swelling noted to LUE. no warmth, radial pulses +2 bilat Neurological: Alert and Oriented x 3, - - tearful Nutrition: Taking PO's Result Diagrams: 11/30/17 06:40 11/30/17 06:40 Assess/Plan/Problems-Billing Assessment: Ms. Robledo is a 62yo female with a PMH for CHF, COPD, CKD, anemia, mantle cell lymphoma who presents after several falls from weakness after discharge from [facility] as well as significant AMS which has now resolved, thought to be secondary to polypharmacy and acute kidney injury. - Patient Problems (1) Altered mental status Status: Acute Code(s): R41.82 - ALTERED MENTAL STATUS, UNSPECIFIED SNOMED Code(s): 378422661 Comment: - Resolved. - Significantly encephalopathic on admission. Denies taking too much of a medication. Likely toxic encephalopathy from polypharmacy in the setting of GEORGE. mentation has improved -Continue medications at decreased doses- will stop tramadol and continue oxycodone- contihnue to c/o pain in knees and shoulders (2) Acute kidney injury Status: Acute Priority: High Code(s): N17.9 - ACUTE KIDNEY FAILURE, UNSPECIFIED SNOMED Code(s): 12679049 Comment: - Resolving. -Possibly ATN. Improved with hydration. - fluids were stopped for weight gain - avoid nephrotoxic medications - (3) Physical deconditioning Status: Acute Code(s): R53.81 - OTHER MALAISE SNOMED Code(s): 53865202567468 Comment: - Improving slowly. - Frequent falls due to weakness without focality. - Continue PT- was able to do stairs today with CG and supervision- walked in the hallway 100' - will need contiued PT at discharge (4) Afib Status: Acute Code(s): I48.91 - UNSPECIFIED ATRIAL FIBRILLATION SNOMED Code( s): 95785709 Comment: - Rate controlled on cardizem and coreg - Continue coumadin - on high doses of coumadin - looking back at her trend of INRs and hospiatlizations it is unclear and suspicous she may not have been taking her coumadin. It is possible she was not dc home form [facility] on it. -Monitor INRs daily- home dose is high range Today INR 2.71, continued home dose- will recheck INR in AM - Follow with Dr. Garrido outpatient. (5) Anemia Status: Chronic Code(s): D64.9 - ANEMIA, UNSPECIFIED SNOMED Code(s): 884258025 Comment: - Normocytic - At baseline. Possibly related to CKD, Chemotherapy and multiple fall with ecchymotic areas to upper ext and shoulders. - Continue iron PO. (6) Dyslipidemia Status: Chronic Priority: Medium Code(s): E78.5 - HYPERLIPIDEMIA, UNSPECIFIED SNOMED Code(s): 337426858 Comment: - Continue statin. (7) Hypertension Status: Chronic Priority: High Onset Date: 01/29/14 Code(s): I10 - ESSENTIAL (PRIMARY) HYPERTENSION SNOMED Code(s): 91987793 Comment: - SBP 80-130s. BP intermittently low, consistent levels with previous hospitalization. - orthostatics negative. Continue decrease spironolactone and torsemide by half. Continue carvedilol and diltiazem with hold parameters. - held aldactone and demadex today SBP 86-87 (8) Mantle cell lymphoma Status: Chronic Code(s): C83.10 - MANTLE CELL LYMPHOMA, UNSPECIFIED SITE SNOMED Code(s): 921543647 Comment: - seen by oncology today -Follows with Dr. Jc. - stopped Ibrutinib- as this may be contributing to her thrombocyopenia- needs to follow up with oncology in 1 month. (9) FRANCIS (obstructive sleep apnea) Status: Chronic Code(s): G47.33 - OBSTRUCTIVE SLEEP APNEA (ADULT) (PEDIATRIC) SNOMED Code(s): 35707664 Comment: - Continue CPAP. Noncompliant (10) COPD (chronic obstructive pulmonary disease) Status: Chronic Code(s): J44.9 - CHRONIC OBSTRUCTIVE PULMONARY DISEASE, UNSPECIFIED SNOMED Code(s): 44162396 Comment: - No Exacerbation. Nebulizers PRN. - Patient on prednisone 5mg po daily, suspect this is for COPD given recent exacerbation and chronic respiratory failure. (11) DVT prophylaxis Status: Acute Onset Date: 10/25/14 Code(s): DSW8601 - SNOMED Code(s): 101280581 Comment: - continue coumadin. INR 2.71 (12) Full code status Status: Acute Code(s): Z78.9 - OTHER SPECIFIED HEALTH STATUS SNOMED Code(s) : 213140035 Comment: Status and Disposition: Inpatient, Will likely need ROXANA vs in home PT. - discharge home tomorrow with home PT
[2017-11-29] MEDS: Warfarin TAB(*) 5 MG PO SCH (16:23)
[2017-11-29] MEDS: ALPRAZolam TAB* 0.25 MG PO PRN ×2 (16:30→21:20)
[2017-11-29] MEDS: QUEtiapine TAB* 100 MG PO SCH (21:21)
[2017-11-30] MEDS: oxyCODONE TAB* 5 MG TAB PO PRN ×2 (02:44→08:57)
[2017-11-30] MEDS: Acetaminophen TAB* 325 MG PO PRN (02:44)
[2017-11-30 07:04] LABS: INR 2.44 (0.77-1.02)
[2017-11-30 07:10] LABS: EGFR Non-African American 35.2 (>60)
[2017-11-30 07:31] LABS: ABS Basophils 0.1 10^3/ul (0-0.2); ABS Eosinophils 0.1 10^3/ul (0-0.6); ABS Lymphocytes 2.4 10^3/ul (1.0-4.8); ABS Monocytes 0.5 10^3/ul (0-0.8); ABS Neutrophils 4.4 10^3/ul (1.5-7.7); ABS Nucleated RBC 0 10^3/ul; Eosinophil % 1.8 % (0-6); Hematocrit 26 % (35-47); Hemoglobin 8.5 g/dl (12.0-16.0); Mean Corpuscular HGB Conc 33 g/dl (31-36); Mean Corpuscular Hemoglobin 26 pg (27-31); Mean Corpuscular Volume 80 fL (80-97); Mean Platelet Volume 11.3 um3 (7.4-10.4); Nucleated Red Blood Cells % 0.5; Platelet Count 106 10^3/ul (150-450); Red Blood Count 3.26 10^6/ul (4.00-5.40); Red Cell Distribution Width 19 % (10.5-15); White Blood Count 7.6 10^3/ul (3.5-10.8)
[2017-11-30] MEDS: Ferrous Sulfate TAB* 325 MG PO SCH (08:58)
[2017-11-30] MEDS: Spironolactone TAB* 25 MG PO SCH (08:58)
[2017-11-30] MEDS: Torsemide TAB* 20 MG PO SCH (08:58)
[2017-11-30] MEDS: Gabapentin CAP(*) 100 MG PO SCH (09:00)
[2017-11-30] MEDS: Atorvastatin* 20 MG TAB PO SCH (09:00)
[2017-11-30] MEDS: predniSONE TAB* 5 MG PO SCH (09:00)
[2017-11-30] MEDS: Diltiazem CD CAP* 180 MG PO SCH (09:01)
[2017-11-30] MEDS: Carvedilol TAB* 25 MG PO SCH (11:10)
[2017-11-30 11:38] VITALS: BP 95/63
--- NOTE | 2017-11-30 12:53 | PN ---
Hospitalist Progress Note Date of Service: 11/30/17 Patient was seen and evaluated in the hospital for weakness and falls. Patient will be returning home, with in home PT for strength and balance training. Ms. Robledo has limitations that impair her ability to participate in mobility related MRADL's. These limitation can NOT be resolved with the use of a can and walker due to her weakness and falls. Ms. Robledo has NOT expressed an unwillingness to use the manual wheel chair that is provided in the home. Patient is both mentally and physically capable of self propelling the wheel chair on a typical day. Ms. Robledo has a caregiver who is willing and able to assist with wheel chair needs.
--- NOTE | 2017-12-02 20:28 | DS ---
CC: Dr. Stuart; Dr. Jc * DISCHARGE SUMMARY: DATE OF ADMISSION: 11/22/17 DATE OF DISCHARGE: 11/30/17 ATTENDING PROVIDER: Karmen Zepeda MD * (DICTATED BY CONSTANZA CROUCH NP) PRIMARY CARE PROVIDER: Dr. Stuart. PRIMARY DIAGNOSES: 1. Weakness. 2. Falls. 3. Hypotension. SECONDARY DIAGNOSES: 1. Anemia. 2. History of pulmonary embolism. 3. Mantle cell lymphoma. 4. Obstructive sleep apnea. 5. Morbid obesity. 6. Atrial fibrillation. 7. Chronic kidney disease. 8. Chronic obstructive pulmonary disease. 9. Tobacco abuse. 10. Hypertension. 11. Hyperlipidemia. MEDICATIONS AT DISCHARGE: 1. Coumadin 15 mg p.o. Wednesday, Wednesday, Wednesday, , Wednesday. Coumadin 10 mg p.o. Wednesday and Wednesday. 2. Gabapentin 200 mg p.o. t.i.d. 3. Potassium chloride 20 mEq p.o. daily. 4. Coreg 50 mg p.o. b.i.d. 5. Trazodone 100 mg p.o. at bedtime. 6. Prednisone 5 mg p.o. q.a.m. 7. Lipitor 20 mg p.o. daily. 8. Calcium 500 mg p.o. b.i.d. p.r.n. (Tums). 9. Albuterol nebulizer 0.83 one q.4 hours as needed for shortness of breath. 10. Acetaminophen 650 mg p.o. q.4 hours as needed for pain. 11. Ferrous sulfate 325 mg p.o. daily. 12. Colace 100 mg p.o. b.i.d. p.r.n. 13. MiraLAX 17 g p.o. daily p.r.n. constipation. 14. Torsemide 10 mg p.o. b.i.d. 15. Seroquel 100 mg p.o. at bedtime. 16. Xanax 0.25 mg p.o. t.i.d. as needed. HISTORY OF PRESENT ILLNESS AND HOSPITAL COURSE: Ms. Robledo is a 62-year-old female who is coming to the emergency room with complaints of falling twice. She was recently here about a month ago at the end of October and was discharged to [facility] for rehab. The patient was discharged from [facility] on , 11/18/17. She went home, fell on Wednesday and fell landing on her knees. She hit her left shoulder. She did not hit her head or pass out. She fell again today on the day of admission. She was trying to get out of the bathroom and she said she just felt very weak in her legs and collapsed and landed on both knees, her grandson was with her. The patient states that she did not pass out, she remembers falling, she did not hit her head, she just reports that her legs became weak and she collapsed to the ground. On the day of admission, she denied any fevers or cough. She denied any shortness of breath. She denied any abdominal pain. No nausea, vomiting or dysuria or any frequency. No chest pain or shortness of breath. She does report that her weight has been stable. [place]yenne reports that he has noticed over the past 4 days prior to admission that she was drowsy, weak, sleepy and not really eating much. Because of this and the falls, they were concerned and brought her to the hospital today. While in the emergency room, she was evaluated. It was noted she appeared to be in acute renal failure. Because of these findings, we were asked to evaluate her for admission. Also noted the patient does state she has not taken any Coumadin since being discharged from [facility]. She states that prior to that she had been taking it right along. She thought she was taking Coumadin at home, but when med rec was done today in the ER, the pharmacy district manager pointed out her Coumadin was not among her pill bottles and she thought she had been taking it right along. While in the hospital, the patient was monitored. She did receive PT. She was able to complete stairs on the day of discharge with a contact guard and supervision. She was able to walk in the hallway 100 feet as well with contact guard assist. The patient does report that she is scared to return home as she is scarred she will fall. She is requesting a wheelchair and a shower chair at home as assistive devices to help her with mobility and decrease her risk of falls. REVIEW OF SYSTEMS: The patient has no documented fevers. She denies any chest pain or shortness of breath. Denies any fever or chills. Denies any cough or congestion. Denies abdominal pain, nausea, vomiting or diarrhea. Denies any headache,lightheadedness or dizziness. Denies any urinary frequency or urgency. A review of 14 systems was completed and all others are negative. PHYSICAL EXAMINATION: General: At this time, Ms. Robledo is a 62-year-old female. She is in no acute distress. She is fully dressed, sitting in a chair. Vital signs are as follows: Temperature was 97.7, heart rate was 109, respirations 18, O2 saturation 99%, blood pressure was 98/62. HEENT: Head is atraumatic, normocephalic. Pupils are equal and reactive to light. Mucous membranes are moist. Neck: Supple. Lungs are clear to auscultation bilaterally. There is good aeration. There are no wheezes, rales or rhonchi. Cardiac: S1, S2, regular rate and rhythm. There are no murmurs, rubs or gallops. Abdomen is soft, nontender, nondistended. Bowel sounds are active x4. Extremities: There is no clubbing, cyanosis or edema. Pedal pulses are + 2 bilaterally. Neurologic: She is awake, alert and oriented x4. She is able to move all 4 extremities with 5/5 strength. She does have good gait and stability with the use of a rolling walker. At this time, Ms. Robledo will be discharged home. DISCHARGE PLAN: Ms. Robledo will be discharged home. ACTIVITY: As tolerated. She should use a wheeled walker when ambulating at all times. 1. Weakness. I suspect her weakness is related to polypharmacy. She did have her medications decreased and stopped during this hospitalization. She was instructed to stop taking tramadol and oxycodone and to take acetaminophen as needed for pain as this could contribute to her weakness at home. The patient verbalized understanding. The patient was also instructed to use a wheeled walker at all times. We will arrange for in-home physical therapy for strength and gait training. 2. Acute kidney injury. She did receive hydration throughout her hospitalization. Her kidney function continued to improve throughout her hospitalization. On the day of discharge, her BUN was 55, creatinine was 1.50. On admission on 11/22/17, her creatinine was 2.89., She was instructed to avoid NSAID's. 3. Hypotension. We did decrease her diuretics. Her torsemide was decreased to 10 mg p.o. b.i.d. We decreased her Seroquel to 100 mg p.o. at bedtime. Her gabapentin remained the same at 200 mg p.o. t.i.d. We did discontinue her diltiazem 180 mg p.o. daily. We decreased her dose of Xanax to 0.25 mg maximum daily dose of 3 times daily. Her hypotension could also be contributing to her weakness and falls. She should follow up with her primary care provider for further adjustments of her medications. 4. Hyperlipidemia. She should continue atorvastatin 20 mg p.o. daily. 5. Anemia. She should continue her iron 325 mg p.o. daily. 6. Mantle cell lymphoma. She should follow up with Dr. Jc as we did discontinue her Imbruvica at the recommendation of hematology/ oncology as this is most likely causing her to have thrombocytopenia. She should follow up with Dr. Jc in 1 month with repeat lab work to evaluate her thrombocytopenia. She should follow up with her primary care provider in 4 to 7 days. She should follow up with Oncology in 1 month for further evaluation of thrombocytopenia in regards to restarting or holding her Imbruvica. The patient was instructed to return to emergency room for any recurrent or worsening symptoms including difficulty breathing, chest pain, nausea, vomiting, lightheadedness, loss of consciousness, bleeding or chest pain, any increased weakness or increased falls. The patient verbalized understanding. The patient was also instructed to discontinue taking her home pain medications and to take only acetaminophen as needed for pain as this could also contribute to her weakness. TIME SPENT: Time spent on this discharge was 60 minutes greater than half that time was spent with the patient discussing her discharge plans. I discussed the plan with my attending, Dr. Karmen Zepeda, and she is in agreement with my plan. CONSTANZA WILLA, AGRIBUSINESS PROFESSOR [id number]/[facility] #: [id number] MTDD
--- NOTE | 2017-12-07 07:30 | ED ---
Xiang Bello Angela scribed for Abiel Gramajo MD on 11/22/17 at 1613 . Adult Trauma - HPI Summary HPI Summary: This pt is a 62 y/o female presenting to [facility] via EMS c/o bilateral shoulder, knee, ankle and back pain s/p 2nd fall today. Pt reports she was at [facility] for physical therapy for the past 2 weeks. She was discharged home 4 days ago. Pt notes she has been using a walker to ambulate at home and has fallen twice today with her walker. Denies head strike or LOC. Denies chest pain, SOB, hip pain. Pt lives with and grandson, Bartolo. She is followed up by Dr. Jc for lymphoma. - History of Current Complaint Stated Complaint: WEAKNESS Time Seen by Provider: 11/22/17 16:04 Hx Obtained From: Patient, Family/Hospital Clinic Assistant - Bartolo Mechanism of Injury: Fall Loss of Consciousness: no loss of consciousness Onset/Duration: Traumatic, Still Present Onset of Pain: Immediate Current Severity: Severe Pain Intensity: 8 Pain Scale Used: 0-10 Numeric Location: Back, Extremities - shoulders, knees and ankles Aggravating Factor(s): Movement Alleviating Factor(s): Rest Associated Signs & Symptoms: Negative: SOB, Chest Pain, Fever, Loss of Consciousness, Memory Loss - Additional Pertinent History Primary Care Physician: [id number] - Allergy/Home Medications Allergies/Adverse Reactions: Allergies Allergy/AdvReac Type Severity Reaction Status Date / Time aspirin Allergy Difficulty Verified 09/30/17 08:42 Breathing Home Medications: Home Medications Ibrutinib [Imbruvica] 560 mg PO DAILY 11/22/17 [History Confirmed 11/22/17] Lisinopril TAB* [Prinivil TAB*] 20 mg PO QAM 11/22/17 [History Confirmed ] Warfarin TAB(*) [Coumadin TAB(*)] 10 mg PO SUSA 11/22/17 [History Confirmed 05/01] Warfarin TAB(*) [Coumadin TAB(*)] 15 mg PO MOTUWETHFR 11/22/17 [History Confirmed 11/22/17] predniSONE TAB* [Deltasone TAB*] 5 mg PO QAM 11/22/17 [History Confirmed ] PMH/Surg Hx/FS Hx/Imm Hx Endocrine/Hematology History: Denies: Hx Diabetes Cardiovascular History: Reports: Hx Angina, Hx Atrial Fibrillation, Hx Auto Implanted Cardiovert Defib - defibrillator, Hx Congestive Heart Failure, Hx Hypertension, Other Cardiovascular Problems/Disorders - chronic afib Respiratory History: Reports: Hx Chronic Obstructive Pulmonary Disease (COPD) - Yes: pt reports 3-4L O2 at all times at home, CPAP at night, Hx Pulmonary Embolism - current bilat PE's, Other Respiratory Problems/Disorders - ON 02 AT NIGHT Denies: Hx Asthma History: Reports: Hx Chronic Renal Failure, Hx Renal Disease Musculoskeletal History: Reports: Hx Orthopedic Injury Sensory History: Comment Only: Hx Contacts or Glasses - unable to obtain, Hx Hearing Aid - unable to obtain Opthamlomology History: Comment Only: Hx Contacts or Glasses - unable to obtain Psychiatric History: Reports: Hx Anxiety, Hx Depression - Cancer History Cancer Type, Location and Year: lymphoma/12/23 - Surgical History Surgery Procedure, Year, and Place: hernia repair/orif right foot Infectious Disease History: No Infectious Disease History: Denies: Hx of Known/Suspected MRSA, Traveled Outside the US in Last 30 Days - Family History Known Family History: Positive: Other - Father - [place] Negative: Cardiac Disease, Hypertension, Diabetes - Social History Alcohol Use: unknown Alcohol Amount: monthly Hx Substance Use: No Substance Use Type: Reports: None Hx Tobacco Use: Yes Smoking Status (MU): Former Smoker Type: Cigarettes Amount Used/How Often: 1/2 ppd Length of Time of Smoking/Using Tobacco: 39 years Have You Smoked in the Last Year: Yes Review of Systems Negative: Fever, Chills Negative: Erythema Negative: Sore Throat Negative: Chest Pain Negative: Shortness Of Breath, Cough Negative: Abdominal Pain, Vomiting, Nausea Negative: dysuria, hematuria Musculoskeletal: Other - Pain in shoulders, knees, and ankles. Back pain. Negative: Myalgia, Edema, Other - hip pain Negative: Rash Neurological: Other - NEG: dizziness All Other Systems Reviewed And Are Negative: Yes Physical Exam - Summary Physical Exam Summary: Constitutional: Well-developed, Well-nourished, Alert, Cooperative Skin: Warm, Dry HENT: Normocephalic; No Racoons eyes; No lew's sign; No abrasion; No contusion; No hemotympanum; No maxilla facial tenderness or instability; Dentition are smooth; No dental trauma; No trismus Eyes: EOM normal, PERRL Neck: Trachea is midline. No stridor; No JVD; No step off; No posterior cervical spine tenderness Cardio: Rhythm regular, rate normal Heart sounds normal; Intact distal pulses; The pedal pulses are 2+ and symmetric. Radial pulses are 2+ and symmetric. Pulmonary/Chest wall: Effort normal; Breath sounds normal; Equal chest rise; No flail segment; No rib tenderness; No sternal tenderness Abd: Soft, Appearance normal. No distension; No tenderness; No palpable pulsatile mass; No Cullens sign; No Nance-Turners sign Musculoskeletal: Full ROM and no tenderness at hips and elbows; No joint swelling; No vertebral body tenderness; No paraspinal tenderness; No step off or deformity of the spine; Pelvis is stable to lateral compression and rock. Pt has ecchymosis over bilateral shoulders and knees. There is tenderness to palpation on shoulders and knees. Intact ROM at all 4 joints. Neuro: Alert, Oriented x3, Strength 5/5 all extremities. : No blood at urethral meatus Psych: Mood and affect Normal Triage Information Reviewed: Yes Vital Signs On Initial Exam: Initial Vitals Temp Pulse Resp BP Pulse Ox 97.4 F 83 19 123/94 97 11/22/17 16:04 11/22/17 16:04 11/22/17 16:04 11/22/17 16:04 11/22/17 16:04 Vital Signs Reviewed: Yes Diagnostics - Vital Signs Vital Signs Temp Pulse Resp BP Pulse Ox 11/22/17 16:04 97.4 F 83 19 123/94 97 - Laboratory Result Diagrams: 11/22/17 16:37 11/22/17 16:37 Lab Statement: Any lab studies that have been ordered have been reviewed, and results considered in the medical decision making process. - Radiology Bilateral knee XR Xray Interpretation: No Acute Changes - IMPRESSION: 1. Bilateral joint effusions , no fracture is seen. 2. Moderate bilateral osteoarthritic change. Dr. Gramajo has reviewed this radiology report. Radiology Interpretation Completed By: Radiologist Bilateral shoulder XR Xray Interpretation: No Acute Changes - IMPRESSION: No evidence of fracture. Dr. Gramajo has reviewed this radiology report. Radiology Interpretation Completed By: Radiologist Chest XR Xray Interpretation: No Acute Changes - IMPRESSION: No evidence for acute finding. Dr. Gramajo has reviewed this radiology report. Radiology Interpretation Completed By: Radiologist - EKG 16:28 Cardiac Rate: NL - at 88 bpm EKG Rhythm: Atrial Fibrillation EKG Interpretation: No STEMI. Adult Trauma Course/Dx - Course Assessment/Plan: Pt is a 62 y/o female who presents with bilateral shoulder, knee, ankle and back pain s/p 2nd fall today. Pt reports she was at [facility] for physical therapy for the past 2 weeks. She was discharged home 4 days ago. Pt notes she has been using a walker to ambulate at home and has fallen twice today with her walker. Denies head strike or LOC. Denies chest pain, SOB, hip pain. Test results show hemoglobin of 9.7, hematocrit of 31, creatinine of 2.89 , AST of 8. Chest XR shows no evidence for acute finding. Bilateral knee XR shows 1. Bilateral joint effusions, no fracture is seen. 2. Moderate bilateral osteoarthritic change. Bilateral shoulder XR reveals no evidence of fracture. In the ED course the pt was given Tramadol. I discussed pt care with Dr. Reeves , hospitalist, who accepted the pt for admission. - Diagnoses Provider Diagnoses: Shoulder contusion, Knee contusion, Osteoarthritis, Frequent falls, Failure to thrive - Physician Notifications Discussed Care Of Patient With: Alba Reeves Time Discussed With Above Provider: 18:06 Instructed by Provider To: Admit As Inpatient Discharge - Sign-Out/Discharge Documenting (check all that apply): Discharge/Admit/Transfer - Admit - Discharge Plan Condition: Stable Disposition: ADMITTED TO [facility] Referrals: Blake Stuart MD [Primary Care Provider] - The documentation as recorded by the Xiang zapata Angela accurately reflects the service I personally performed and the decisions made by me, Abiel Gramajo MD.
== END 2017-11-30 13:50 | disposition home or self-care (01) | DRG 91 ==
LOC: ED 15:57 → MED 19:19 → UNDOADMIN 19:19 → UNDODISIN 11-30 13:50
PROVIDERS: ADMIT Pediatrics; ATTEND Internal Medicine
PROC: 5A09457 Assistance with Respiratory Ventilation, 24-96 Consecutive Hours, Continuous Positive Airway Pressure (ICD-10-PCS; principal; 2017-11-22)
DX: G92 Toxic encephalopathy (principal); N17.0 Acute kidney failure with tubular necrosis; J96.11 Chronic respiratory failure with hypoxia; J96.12 Chronic respiratory failure with hypercapnia; C83.10 Mantle cell lymphoma, unspecified site; I13.0 Hypertensive heart and chronic kidney disease with heart failure and stage 1 through stage 4 chronic kidney disease, or unspecified chronic kidney disease; I50.42 Chronic combined systolic (congestive) and diastolic (congestive) heart failure; Z68.43 Body mass index [BMI] 50.0-59.9, adult; Z99.81 Dependence on supplemental oxygen; I48.91 Unspecified atrial fibrillation; E66.01 Morbid (severe) obesity due to excess calories; T50.905A Adverse effect of unspecified drugs, medicaments and biological substances, initial encounter; X58.XXXA Exposure to other specified factors, initial encounter; R41.82 Altered mental status, unspecified; D64.9 Anemia, unspecified; E78.5 Hyperlipidemia, unspecified; G47.33 Obstructive sleep apnea (adult) (pediatric); J44.9 Chronic obstructive pulmonary disease, unspecified; N18.9 Chronic kidney disease, unspecified; F17.210 Nicotine dependence, cigarettes, uncomplicated; E86.0 Dehydration; W18.30XA Fall on same level, unspecified, initial encounter; M25.551 Pain in right hip; M25.552 Pain in left hip; M25.562 Pain in left knee; M25.561 Pain in right knee; M79.89 Other specified soft tissue disorders; M25.462 Effusion, left knee; M25.512 Pain in left shoulder; M25.511 Pain in right shoulder; M25.461 Effusion, right knee; Y92.9 Unspecified place or not applicable; Z86.711 Personal history of pulmonary embolism; Z79.01 Long term (current) use of anticoagulants; Z95.810 Presence of automatic (implantable) cardiac defibrillator; Z79.1 Long term (current) use of non-steroidal anti-inflammatories (NSAID); Z79.891 Long term (current) use of opiate analgesic; Z79.52 Long term (current) use of systemic steroids; Z79.899 Other long term (current) drug therapy; Z88.6 Allergy status to analgesic agent; Z80.1 Family history of malignant neoplasm of trachea, bronchus and lung; Z91.81 History of falling; Y92.009 Unspecified place in unspecified non-institutional (private) residence as the place of occurrence of the external cause
CPT/HCPCS: 36415; 70450; 71045; 72192; 80048; 80053; 81003; 81015; 82140; 82570; 82607; 82668; 82803; 83735; 84300; 84443; 84484; 85025; 85027; 85060; 85610; 85730; 87086; 93005; 94660; 99232; 99283; A9270-GY; G8987-GO-CJ; G8988-GO-CI; G8989-GO-CI; J1644; J2997; J7512

== ENCOUNTER 2018-03-08 04:49 | Emergency (ER) | payer OTHER, MEDICARE ==
--- NOTE | 2018-03-08 05:04 | ED ---
Skin Complaint - HPI Summary HPI Summary: This patient is a 62 year old F presenting to [facility] with a chief complaint of itching skin on bilateral UEs for the last two weeks. She states it scratches it all day long. The patient rates the pain 2/10 in severity. Pt has lymphoma and sees Dr. Jc. She is not being treated because of her blood pressure and her kidneys. She is concerned it could be her lymphoma. - History of Current Complaint Chief Complaint: EDRashSkinAbscess Time Seen by Provider: 03/08/18 05:01 Stated Complaint: GENERAL Hx Obtained From: Patient Onset/Duration: Still Present Timing: Constant Onset Severity: Mild Current Severity: Mild Pain Intensity: 2 Pain Scale Used: 0-10 Numeric Skin Location: Other: - UE Associated Signs & Symptoms: Negative - fever - Additional Pertinent History Primary Care Physician: GENEVA - Allergy/Home Medications Allergies/Adverse Reactions: Allergies Allergy/AdvReac Type Severity Reaction Status Date / Time aspirin Allergy Difficulty Verified 03/08/18 04:53 Breathing PMH/Surg Hx/FS Hx/Imm Hx Endocrine/Hematology History: Denies: Hx Diabetes Cardiovascular History: Reports: Hx Angina, Hx Atrial Fibrillation, Hx Auto Implanted Cardiovert Defib - defibrillator, Hx Congestive Heart Failure, Hx Hypertension, Other Cardiovascular Problems/Disorders - chronic afib Respiratory History: Reports: Hx Chronic Obstructive Pulmonary Disease (COPD) - Yes: pt reports 3-4L O2 at all times at home, CPAP at night, Hx Pulmonary Embolism - current bilat PE's, Hx Sleep Apnea, Other Respiratory Problems/ Disorders - ON 02 AT NIGHT Denies: Hx Asthma History: Reports: Hx Chronic Renal Failure, Hx Renal Disease Musculoskeletal History: Reports: Hx Orthopedic Injury Sensory History: Comment Only: Hx Contacts or Glasses - unable to obtain, Hx Hearing Aid - unable to obtain Opthamlomology History: Comment Only: Hx Contacts or Glasses - unable to obtain Psychiatric History: Reports: Hx Anxiety, Hx Depression - Cancer History Cancer Type, Location and Year: lymphoma/12/23 - Surgical History Surgery Procedure, Year, and Place: hernia repair/orif right foot Infectious Disease History: No Infectious Disease History: Denies: Hx of Known/Suspected MRSA, Traveled Outside the US in Last 30 Days - Family History Known Family History: Positive: Other - Father - [place] Negative: Cardiac Disease, Hypertension, Diabetes - Social History Alcohol Use: unknown Alcohol Amount: monthly Hx Substance Use: No Substance Use Type: Reports: None Hx Tobacco Use: Yes Smoking Status (MU): Former Smoker Type: Cigarettes Amount Used/How Often: 1/2 ppd Length of Time of Smoking/Using Tobacco: 39 years Have You Smoked in the Last Year: Yes Review of Systems Negative: Fever Skin: Other - "knots in her arms" Positive: Other - itching All Other Systems Reviewed And Are Negative: Yes Physical Exam - Summary Physical Exam Summary: VITAL SIGNS: Reviewed. GENERAL: Patient is a well-developed and obese female who is lying comfortable in the stretcher. Patient is not in any acute respiratory distress. HEAD AND FACE: No signs of trauma. No ecchymosis, hematomas or skull depressions. No sinus tenderness. EYES: PERRLA, EOMI x 2, No injected conjunctiva, no nystagmus. EARS: Hearing grossly intact. Ear canals and tympanic membranes are within normal limits. MOUTH: Oropharynx within normal limits. NECK: Supple, trachea is midline, no adenopathy, no JVD, no carotid bruit, no c- spine tenderness, neck with full ROM. CHEST: Symmetric, no tenderness at palpation LUNGS: Clear to auscultation bilaterally. No wheezing or crackles. CVS: Regular rate and rhythm, S1 and S2 present, no murmurs or gallops appreciated. ABDOMEN: Soft, non-tender. No signs of distention. No rebound no guarding, and no masses palpated. Bowel sounds are normal. EXTREMITIES: FROM in all major joints, no edema, no cyanosis or clubbing. NEURO: Alert and oriented x 3. No acute neurological deficits. Speech is normal and follows commands. SKIN: erythematous papules on the extensor surface of the elbows and the flexor surfaces of the UE;s Triage Information Reviewed: Yes Vital Signs On Initial Exam: Initial Vitals Temp Pulse Resp BP Pulse Ox 97.8 F 101 20 133/113 100 03/08/18 04:51 03/08/18 04:51 03/08/18 04:51 03/08/18 04:51 03/08/18 04:51 Vital Signs Reviewed: Yes Diagnostics - Vital Signs Vital Signs Temp Pulse Resp BP Pulse Ox 03/08/18 04:51 97.8 F 101 20 133/113 100 - Laboratory Lab Statement: Any lab studies that have been ordered have been reviewed, and results considered in the medical decision making process. Course/Dx - Course Assessment/Plan: This patient is a 62 year old F presenting to [facility] with a chief complaint of itching skin on bilateral UEs for the last two weeks. She states it scratches it all day long. The patient rates the pain 2/10 in severity. Pt has lymphoma and sees Dr. Jc. She is not being treated because of her blood pressure and her kidneys. She is concerned it could be her lymphoma. Itches more at night rash over the extensor surface of the UE. The rash is most consistent with scabies. The patient will discharged and f/u with dermatology. The patient is agreeable with this plan. - Diagnoses Provider Diagnoses: Rash, Scabies Discharge - Sign-Out/Discharge Documenting (check all that apply): Patient Departure - Discharge Plan Condition: Stable Disposition: HOME Prescriptions: hydrOXYzine HCL TAB* [Atarax TAB 50 MG *] 50 mg PO TID PRN #20 tab PRN Reason: Itching Patient Education Materials: Scabies (ED) Referrals: Ivelisse Ontiveros MD [Medical Doctor] - 2 Days Additional Instructions: RETURN TO THE EMERGENCY DEPARTMENT FOR CHANGING OR WORSENING SYMPTOMS - Attestation Statements Document Initiated by Scribe: Yes Documenting Scribe: Janusz Conde Provider For Whom Scribe is Documenting (Include Credential): Aura Stark MD Scribe Attestation: Janusz Bello , scribed for Aura Stark MD on 03/08/18 at 0535.
[2018-03-08] MEDS ORDERED: hydrOXYzine HCL TAB* 50 MG PO ONE (05:28)
[2018-03-08] MEDS ORDERED: Permethrin 5% CREAM* 1 APPLIC TUBE TOPICAL ONE (05:29)
[2018-03-08 06:12] VITALS: BP 127/52
== END 2018-03-08 05:55 | disposition home or self-care (01) ==
LOC: ED 04:49
DX: B86 Scabies (principal); C85.90 Non-Hodgkin lymphoma, unspecified, unspecified site; Z88.6 Allergy status to analgesic agent; Z87.891 Personal history of nicotine dependence
CPT/HCPCS: 99282; A9270-GY

== ENCOUNTER 2018-06-15 12:43 | Observation (INO) | payer OTHER, MEDICARE ==
--- NOTE | 2018-06-15 13:12 | ED ---
Shortness of Breath - HPI Summary HPI Summary: A 62 y/o female, accompanied by her grandson Bartolo, presents to [facility] with a chief complaint of SOB since 06/08/18. She rates her pain as 8/10. She has a Hx of COPD, CHF, a-fib and HTN. She also reports having pneumonia twice. She also c/o coughing up yellow sputum since 06/01/18 and mid sternal chest pain which she describes as tightness, and a headache. She claims that she had a fever at home, but was unable to give a temperature and states that she has not had a fever on . She is on 3L of O2 at night at home. She denies a Hx of [place]. She last saw Dr. 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 She reports being on Warfarin and has gotten her flu shot. Vital signs in room. HR 101bpm, O2 Sat 94 on room air, BP 146/110 - History of Current Complaint Chief Complaint: EDFluSymptoms Time Seen by Provider: 06/15/18 12:52 Hx Obtained From: Patient, Family/Assembly Loader - grandson Bartolo Onset/Duration: Sudden Onset, Lasting Weeks, Still Present Timing: Constant Current Severity: Severe Dyspnea At: Rest Aggrevating Factors: Nothing Alleviating Factors: Nothing Associated Signs & Symptoms: Cough (Productive), Chest Pain w/Cough Related History: Obesity - Allergy/Home Medications Allergies/Adverse Reactions: Allergies Allergy/AdvReac Type Severity Reaction Status Date / Time aspirin Allergy Difficulty Verified 06/15/18 12:51 Breathing Home Medications: Home Medications ALPRAZolam TAB* [Xanax TAB*] 0.25 mg PO BID PRN 06/15/18 [History Confirmed 08/02] Acetaminophen TAB* [Tylenol TAB*] 650 mg PO Q4H PRN 06/15/18 [History Confirmed 06/15/18] Albuterol HFA INHALER* [Ventolin HFA Inhaler*] 2 puff INH Q4H PRN 06/15/18 [ History Confirmed 06/15/18] Atorvastatin* [Lipitor 20 MG*] 20 mg PO DAILY 06/15/18 [History Confirmed ] Calcium Carbonate CHEW TAB* [Tums*] 500 mg PO BID PRN 06/15/18 [History Confirmed 06/15/18] Carvedilol TAB* [Coreg TAB*] 25 mg PO BID 06/15/18 [History Confirmed 06/15/18] Multivitamins/Minerals TAB* [Theragran/minerals TAB*] 1 tab PO DAILY 06/15/18 [ History Confirmed 06/15/18] Nicotine Inhaler* 10 mg INH Q2H PRN 06/15/18 [History Confirmed 06/15/18] Potassium Chlor TAB* [Potassium Chlor TAB 20 MEQ*] 20 meq PO DAILY 06/15/18 [ History Confirmed 06/15/18] QUEtiapine TAB* [Seroquel 100 MG *] 200 mg PO BEDTIME 06/15/18 [History Confirmed 06/15/18] Spironolactone (NF) [Spironolactone 50 MG (NF)] 50 mg PO DAILY 06/15/18 [ History Confirmed 06/15/18] Tiotropium CAP.INH* [Spiriva CAP.INH*] 1 cap.inh INH DAILY 06/15/18 [History Confirmed 06/15/18] Torsemide TAB* [Demadex 20 MG*] 40 mg PO BID 06/15/18 [History Confirmed ] Warfarin TAB(*) [Coumadin TAB(*)] 12.5 mg PO DAILY 06/15/18 [History Confirmed 06/15/18] dilTIAZem HCl [Cartia Xt] 180 mg PO DAILY 06/15/18 [History Confirmed 06/15/18] traMADol TAB* [Ultram*] 50 mg PO Q8HR PRN 06/15/18 [History Confirmed 06/15/18] traZODone TAB* [Desyrel TAB*] 50 - 150 mg PO BEDTIME 06/15/18 [History Confirmed 06/15/18] PMH/Surg Hx/FS Hx/Imm Hx Previously Healthy: No Endocrine/Hematology History: Denies: Hx Diabetes Cardiovascular History: Reports: Hx Angina, Hx Atrial Fibrillation, Hx Auto Implanted Cardiovert Defib, Hx Congestive Heart Failure, Hx Embolism - Pulmonary embolism June of 2017, Hx Hypertension Respiratory History: Reports: Hx Chronic Obstructive Pulmonary Disease (COPD) - Yes: pt reports 3-4L O2 at all times at home, CPAP at night, Hx Pulmonary Embolism, Hx Sleep Apnea - CPAP at night Denies: Hx Asthma History: Reports: Hx Chronic Renal Failure, Hx Renal Disease Musculoskeletal History: Reports: Hx Orthopedic Injury Psychiatric History: Reports: Hx Anxiety, Hx Depression - Cancer History Cancer Type, Location and Year: mantle cell lymphoma/12/23 - Surgical History Surgery Procedure, Year, and Place: hernia repair/orif right ankle,. fallopian tube surgery for ectopic - Immunization History Date of Tetanus Vaccine: utd Date of Influenza Vaccine: 02/2018 Infectious Disease History: No Infectious Disease History: Denies: Hx of Known/Suspected MRSA, Traveled Outside the [place] in Last 30 Days - Family History Known Family History: Positive: Diabetes - father, Other - Father - Lung cancer Negative: Cardiac Disease, Hypertension - Social History Alcohol Use: Occasionally Alcohol Amount: monthly Hx Substance Use: No Substance Use Type: Reports: None Hx Tobacco Use: Yes Smoking Status (MU): Former Smoker Type: Cigarettes Amount Used/How Often: 1/2 ppd Length of Time of Smoking/Using Tobacco: 39 years Have You Smoked in the Last Year: Yes Review of Systems Negative: Fever Positive: Chest Pain - tightness Positive: Shortness Of Breath, Cough - with yellow sputum Gastrointestinal: Negative Positive: no symptoms reported Musculoskeletal: Negative Skin: Negative Positive: Headache Psychological: Normal All Other Systems Reviewed And Are Negative: Yes Physical Exam - Summary Physical Exam Summary: Appearance: Chronically ill-appearing, no pain distress, morbidly obese Skin: Warm, color reflects adequate perfusion, dry Head: Normal Head/Face inspection, atraumatic Eyes: Conjunctiva clear ENT: Normal inspection, pharynx clear Neck: Supple, no nodes, no JVD Respiratory: Decreased breath sounds throughout, no respiratory distress, productive cough while in room, clear sputum Cardio: RRR, No murmur, pulses normal, brisk capillary refill Abdomen: Soft, nontender Bowel sounds: Present Musculoskeletal: Strength Intact/ROM intact, no calf tenderness, no edema. Psychological: Normal Neuro: Alert, muscle tone normal, no focal deficit Triage Information Reviewed: Yes Vital Signs On Initial Exam: Initial Vitals Temp Pulse Resp BP Pulse Ox 97.4 F 105 24 138/96 100 06/15/18 12:48 06/15/18 12:48 06/15/18 12:48 06/15/18 12:48 06/15/18 12:48 Vital Signs Reviewed: Yes Diagnostics - Vital Signs Vital Signs Temp Pulse Resp BP Pulse Ox 06/15/18 12:48 97.4 F 105 24 138/96 100 - Laboratory Result Diagrams: 06/17/18 06:54 06/17/18 06:54 Lab Statement: Any lab studies that have been ordered have been reviewed, and results considered in the medical decision making process. - Radiology Chest x-ray Radiology Interpretation Completed By: Radiologist Summary of Radiographic Findings: Cardiomegaly with RIGHT-sided cardiac chamber enlargement and prominent central. pulmonary vasculature are most consistent with pulmonary arterial hypertension. Probable. mild interstitial pulmonary edema. Stigmata of chronic obstructive pulmonary disease. ED provider has reviewed this imaging report. - EKG 13:34 Cardiac Rate: Other Rate - Atrial fibrillation at 104 bpm EKG Rhythm: Atrial Fibrillation ST Segment: Non-Specific Ectopy: None EKG Comparison: No Significant Change Summary of EKG Findings: Atrial fibrillation at 104 bpm, nl IVCT, prolonged QTc (560), no acute changes, no significant changes compared with 11/22/17. Re-Evaluation - Re-Evaluation First Eval Re-Evaluation Time: 15:14 Change: Unchanged Comment: HR 94 bpm. O2 sat 94. Second Eval Re-Evaluation Time: 16:08 Change: Unchanged Comment: Ned, RN, patient has headache, will give patient acetaminophen. Course/Dx - Course Course Of Treatment: A 62 y/o female, accompanied by her grandson Bartolo, presents to [facility] with a chief complaint of SOB since 06/08/18. She also c/o CP , cough and headache but denies fever. PMHx of COPD, CHF, PE, a-fib. FHx of DM and lung cancer from father. The physical exam revealed that the patient was morbidly obese, had decreased breath sounds throughout, was in no respiratory distress and had a productive cough while in room with clear sputum. The patient tested positive for Influenza A. Troponin 0.01 at 13:30 and 16:00. An EKG at 13:34 showed atrial fibrillation at 104 bpm, nl IVCT, prolonged QTc (560) , no acute changes, no significant changes compared with 11/22/17. A chest x- ray revealed Cardiomegaly with RIGHT-sided cardiac chamber enlargement and prominent central. pulmonary vasculature are most consistent with pulmonary arterial hypertension. Probable. mild interstitial pulmonary edema. Stigmata of chronic obstructive pulmonary disease. Case discussed with Dr. Henriquez and Dr. Jc. In the ED course the patient was given 650 mg Acetaminophen PO and 75 mg Oseltamivir Phosphate PO. Dx: Influenza A, atrial fibrillation with RVR. Dr. Henriquez, hospitalist, will accept the patient for admission. The patient is agreeable with this plan. - Diagnoses Provider Diagnoses: Influenza A, Atrial fibrillation with RVR, Morbid obesity, COPD (chronic obstructive pulmonary disease), Mantle cell lymphoma - Physician Notifications Discussed Care of Patient With: Annika Henriquez Time Discussed With Above Provider: 16:30 Instructed by Provider To: Other - Recommended calling Dr. Jc. Discharge - Sign-Out/Discharge Documenting (check all that apply): Patient Departure - Admit - Discharge Plan Condition: Stable Disposition: ADMITTED TO [facility] - Billing Disposition and Condition Condition: STABLE Disposition: Admitted to [facility] - Attestation Statements Document Initiated by López: Yes Documenting Scribe: Michael Dudley Provider For Whom López is Documenting (Include Credential): Dr. Kelsie Vicente MD Scribe Attestation: IMichael scribed for Dr. Kelsie Vicente MD on 06/22/18 at 1852. Scribe Documentation Reviewed: Yes Provider Attestation: The documentation as recorded by the Michael zapata accurately reflects the service I personally performed and the decisions made by me, Dr. Kelsie Vicente MD Status of Scribe Document: Viewed Consult Consult: At 15:[address] Jc, who stated that the patient does not have an active disease at this time so he requested patient admission to the hospitalist. At 16:[address] Henriquez, hospitalist, who said that she will accept the patient for admission.
[2018-06-15 13:24] LABS: Influenza B Molecular POSITIVE (Negative)
[2018-06-15] MEDS ORDERED: Oseltamivir CAP* 75 MG CAP PO ONE (13:42)
[2018-06-15 14:05] LABS: Albumin 3.4 g/dL (3.2-5.2); Albumin/Globulin Ratio 0.9 (1-3); BUN/Creatinine Ratio 20.5 (8-20); Calcium 9.1 mg/dL (8.6-10.3); EGFR African American 49.3 (>60); EGFR Non-African American 40.8 (>60); Globulin 3.6 g/dL (2-4); Magnesium 1.9 mg/dL (1.9-2.7); Total Bilirubin 0.4 mg/dL (0.2-1.0)
[2018-06-15 14:07] LABS: Troponin I 0.01 ng/mL (<0.04)
[2018-06-15 14:09] LABS: CKMB ng/mL 0.8 ng/mL (0.6-6.3)
[2018-06-15 14:40] LABS: TSH (Thyroid Stimulating Horm) 1.16 mcIU/mL (0.34-5.60)
[2018-06-15] MEDS ORDERED: Acetaminophen TAB* 325 MG PO ONE (16:05)
[2018-06-15] MEDS ORDERED: Albuterol 2.5 MG/3 ML NEB.SOL* (0.083%) INH PRN (18:10)
[2018-06-15] MEDS ORDERED: Albuterol HFA INHALER* 8 gm MDI INH PRN (18:17)
[2018-06-15] MEDS ORDERED: Nicotine Inhaler* 10 MG AMP INH PRN (18:17)
[2018-06-15] MEDS ORDERED: Docusate CAP* 100 MG PO PRN (18:17)
[2018-06-15] MEDS ORDERED: methylPREDNISolone 125 MG* 2 ML VIAL IV ONE (18:22)
[2018-06-15] MEDS ORDERED: Mouth Piece, Nicotine* 1 EACH CARTRIDGE INH PRN (18:42)
[2018-06-15] MEDS ORDERED: SPIRONOLACTONE PO SCH (19:00)
[2018-06-15] MEDS: Torsemide TAB* 20 MG PO SCH (20:19)
[2018-06-15] MEDS: Warfarin TAB(*) 2.5 MG PO SCH (20:19)
[2018-06-15] MEDS: Warfarin TAB(*) 10 MG PO SCH (20:19)
[2018-06-15] MEDS: Carvedilol TAB* 25 MG PO SCH (20:19)
[2018-06-15] MEDS: QUEtiapine TAB* 100 MG PO SCH (20:20)
[2018-06-15] MEDS: traMADol TAB* 50 MG PO PRN (20:20)
[2018-06-15] MEDS: ALPRAZolam TAB* 0.25 MG PO PRN (20:21)
[2018-06-15] MEDS: Oseltamivir CAP* 30 MG CAP PO SCH (20:35)
[2018-06-15 20:48] LABS: Urine Appearance Cloudy; Urine Bacteria Absent (Absent); Urine Bilirubin Negative (Negative); Urine Blood 3+ (Negative); Urine Color Yellow; Urine Glucose 1+(50 mg/dL) (Negative); Urine Ketones Trace (Negative); Urine Nitrite Negative (Negative); Urine Protein Negative (Negative); Urine Red Blood Cell Trace(0-2/hpf) (Absent); Urine Specific Gravity 1.018 (1.010-1.030); Urine Squamous Epithelial Cell Present (Absent); Urine Urobilinogen Negative (Negative); Urine White Blood Cell Trace(0-5/hpf) (Absent)
--- NOTE | 2018-06-16 00:39 | HP ---
CC: Dr. Stuart.* HISTORY AND PHYSICAL: DATE OF ADMISSION: 06/15/18 PROVIDER: Valentine Martinez NP ATTENDING PHYSICIAN WHILE IN THE HOSPITAL: Dr. Annika Henriquez * (dictated by Valentine Martinez NP). CHIEF COMPLAINT: Shortness of breath and cough. HISTORY OF PRESENT ILLNESS: Ms. Robledo is a 62-year-old female with a past medical history significant for bilateral PEs diagnosed in June of last year , lymphoma, chronic kidney disease, AFib, CHF, obstructive sleep apnea, COPD, hypertension, and hyperlipidemia, who presented to the emergency room with the complaints of shortness of breath and cough x3 weeks, increased fevers on and off x1 week, productive cough with light yellow secretions, generalized body aches, and felling fatigued and weak. The patient reports that she has had fevers and chills on and off for a week. She also reports chest pain, cough, and shortness of breath x3 weeks. She denies any nausea, vomiting, diarrhea, or abdominal pain. She does report blood in the urine x2 weeks. She denies any focal weakness or sensory loss. Denies any visual complaints or dysphagia. She does report generalized body aches x3 weeks. Denies any rashes, lesions, psychosis, or anxiety. While in the emergency room, the patient had routine lab work drawn. She had a flu A and B and was found to have a flu swab that was positive for influenza A. Given her generalized fatigue and weakness, shortness of breath and cough, we were asked to see and evaluate her for admission. PAST MEDICAL HISTORY: Significant for: 1. Bilateral PEs in June 2017. 2. Lymphoma. 3. Chronic kidney disease. 4. Atrial fibrillation. 5. CHF with an EF of 35% to 40%. 6. COPD. 7. Anemia. 8. Hypertension. 9. Hyperlipidemia. 10. Obstructive sleep apnea. PAST SURGICAL HISTORY: 1. Right ankle fracture repair. 2. AICD pacemaker. 3. Tubal . MEDICATIONS: Home medications include: 1. Coumadin 12.5 mg p.o. daily. 2. Trazodone 50 to 150 mg p.o. at bedtime. 3. Tramadol 50 mg p.o. q.8 hours as needed. 4. Torsemide 40 mg p.o. b.i.d. 5. Spiriva 1 cap inhaled p.o. daily. 6. Spironolactone 50 mg p.o. daily. 7. Seroquel 200 mg p.o. at bedtime. 8. Potassium chloride 20 mEq p.o. daily. 9. Nicotine inhaler 10 mg inhaled q.2 hours as needed. 10. Diltiazem HCl 180 mg p.o. daily. 11. Ferrous sulfate 325 mg p.o. daily. 12. Docusate 100 mg p.o. b.i.d. p.r.n. 13. Multivitamin 1 tablet p.o. daily. 14. Carvedilol 25 mg p.o. b.i.d. 15. Tums 500 mg b.i.d. p.r.n. 16. Atorvastatin 20 mg p.o. daily. 17. Albuterol HFA inhaler 2 puffs q.4 hours as needed. 18. Alprazolam 0.25 mg p.o. b.i.d. p.r.n. 19. Acetaminophen 650 mg p.o. q.4 hours. ALLERGIES: ASPIRIN. FAMILY HISTORY: No reported history of coronary artery disease. Father with a history of diabetes. Father with lung cancer. SOCIAL HISTORY: The patient quit smoking in August, but does report that she has been smoking over the holiday, 3 to 4 cigarettes a day, for the past few weeks. She has reported occasional alcohol use. Denies illicit drug use. She lives with her grandson. Surrogate decision maker is her . She is a full code. REVIEW OF SYSTEMS: The patient does report fevers on and off at home x1 week. No loss of appetite. She does report chest pain, cough, and shortness of breath x3 weeks. Denies any edema or hemoptysis. Denies any nausea, vomiting, or diarrhea. She does report blood in the urine x2 weeks. Denies any focal weakness or sensory loss, visual complaints, dysphagia. She report generalized body aches x3 weeks. Denies any rashes, lesions, psychosis, or anxiety. PHYSICAL EXAMINATION GENERAL: At this time, Ms. Robledo is a 62-year-old female. She does not appear to be in any acute distress. Resting on the stretcher in the emergency room with a moist cough noted. HEENT: Head is atraumatic and normocephalic. Eyes: EOMs are intact. Sclerae anicteric and not pale. Oral mucosa appear to be moist. No oropharyngeal erythema. NECK: Supple. LUNGS: With expiratory wheezes bilaterally and a few scattered rhonchi. CARDIAC: S1 and S2. Regular, rate, and rhythm. No murmurs, rubs, or gallops. ABDOMEN: Soft and nontender. Bowel sounds are present x4. EXTREMITIES: Pedal pulses are +2 bilaterally. She is able to move all 4 extremities with 5/5 strength. NEUROLOGIC: She is awake, alert, and oriented x3. Speech is clear, thought process is intact. No gross focal deficits. SKIN: Intact. LABORATORY DATA AND DIAGNOSTIC STUDIES: WBCs are 4.4, RBCs 4.16, hemoglobin 11.0, hematocrit was 34, platelet count was 161. INR was 1.92. D-dimer was less than 200. Sodium 142, potassium 4.0, chloride 103, carbon dioxide was 28, anion gap was 11, BUN was 27, creatinine 1.32, glucose 116, lactic acid 0.9, calcium 9.1, magnesium 1.9, ASTs were 14, ALTs were 12, alkaline phosphatase was 96, BNP was 245. Troponin 0.01 x3. TSH was 1.16. Urine color was yellow, appearance was cloudy, pH was 5, specific gravity 1.018. Urine protein was negative, urine ketones were trace, blood was 3+. Urine nitrites, bilirubin, urobilinogen were all negative. Urine leukocyte esterase was negative. Urine wbc's were trace, rbc's were trace. Squamous epithelial cells were present, bacteria was absent, hyaline casts were present. Urine glucose was 1+. Urine influenza A was negative. Influenza A was positive. She had a chest x-ray, radiologist's impression: Cardiomegaly with right-sided cardiac chamber enlargement and prominent central pulmonary vascular consistent with pulmonary atrial hypertensive pattern, probable mild interstitial pulmonary edema, stigmata for chronic obstructive pulmonary disease. She had an electrocardiogram which showed atrial fibrillation at a rate of 104. ASSESSMENT AND PLAN: Ms. Robledo is a 62-year-old female with a past medical history significant for chronic obstructive pulmonary disease, hypertension, hyperlipidemia, obstructive sleep apnea, bilateral pulmonary edemas, history of congestive heart failure, atrial fibrillation, chronic kidney disease, and lymphoma; who presented to the emergency room with generalized weakness, shortness of breath, cough, and congestion x3 weeks. Fevers on and off for the last week. She was found to have positive influenza A. At this time, she will be admitted under observation. 1. Influenza A. I suspect her cough and congestion is related to her influenza. We will start her on Tamiflu 30 mg p.o. b.i.d. due to her chronic kidney disease for 5 days. We will give her symptomatic and supportive care. She will have nebulizers. I will give her some Solu-Medrol to assist with her wheezing and then continue with prednisone 40 mg p.o. daily starting tomorrow. At this time, she does not appear to be infectious. She is afebrile on admission to the ER. She was not hypoxic. She had an O2 saturation of 95% to 97% on room air. She was not hypotensive. Her respirations were 20. So, at this time, I will hold off on antibiotics as this appears to be all related to her influenza. 2. Atrial fibrillation. She will continue on Coumadin 12.5 mg, carvedilol, diltiazem as previously prescribed at home. 3. History of congestive heart failure with EF of 35% to 40%. I will continue her on her torsemide starting tomorrow. She will continue on diltiazem and carvedilol as well as spironolactone 50 mg p.o. daily as well as potassium. 4. Hyperlipidemia. She will continue atorvastatin 20 mg p.o. daily. 5. Chronic obstructive pulmonary disease. She will continue on her Ventolin inhaler and Spiriva as previously prescribed. 6. FEN: She will be placed on a heart-healthy, decaf-okay diet. 7. DVT prophylaxis: She will continue on Coumadin. 8. Code status: She is a full code. TIME SPENT: Time spent on this admission was 60 minutes, greater than half that time was spent [id number] with the patient obtaining my history and physical. The other half the time was spent going over my plan of care and implementing my plan of care. I have discussed with my attending, Dr. Annika Henriquez, she is in agreement with my plan. VALENTINEVENTURA MARTINEZ NP [id number]/[facility] #: [id number] FLOYD
[2018-06-16] MEDS: Acetaminophen TAB* 325 MG PO PRN (01:51)
[2018-06-16] MEDS: Calcium Carbonate CHEW TAB* 500 MG (TUMS) PO PRN ×2 (01:51→20:18)
[2018-06-16] MEDS: traZODone TAB* 50 MG TAB PO PRN ×2 (03:17→20:19)
[2018-06-16 07:10] LABS: Hematocrit 35 % (35-47); Hemoglobin 11.1 g/dl (12.0-16.0); Mean Corpuscular HGB Conc 31 g/dl (31-36); Mean Corpuscular Hemoglobin 26 pg (27-31); Mean Corpuscular Volume 82 fL (80-97); Mean Platelet Volume 9.4 fL (7.4-10.4); Platelet Count 162 10^3/ul (150-450); Red Cell Distribution Width 19 % (10.5-15); White Blood Count 2.8 10^3/ul (3.5-10.8)
[2018-06-16] MEDS: Oseltamivir CAP* 30 MG CAP PO SCH ×2 (07:14→20:19)
[2018-06-16] MEDS: Diltiazem CD CAP* 180 MG PO SCH (07:14)
[2018-06-16] MEDS: Multivitamins/Minerals TAB PO SCH (07:14)
[2018-06-16] MEDS: Atorvastatin* 20 MG TAB PO SCH (07:14)
[2018-06-16] MEDS: Potassium Chlor TAB* 20 MEQ TAB.ER PO SCH (07:14)
[2018-06-16] MEDS: Torsemide TAB* 20 MG PO SCH ×2 (07:14→20:19)
[2018-06-16] MEDS: predniSONE TAB* 20 MG PO SCH (07:14)
[2018-06-16] MEDS: Carvedilol TAB* 25 MG PO SCH ×2 (07:14→20:19)
[2018-06-16 07:15] LABS: INR 2.23 (0.77-1.02)
[2018-06-16] MEDS: Ferrous Sulfate TAB* 325 MG PO SCH (07:15)
[2018-06-16] MEDS: Spironolactone TAB* 25 MG PO SCH (07:15)
[2018-06-16] MEDS: traMADol TAB* 50 MG PO PRN ×2 (07:20→20:18)
[2018-06-16] MEDS: ALPRAZolam TAB* 0.25 MG PO PRN ×2 (07:21→20:18)
[2018-06-16 07:29] LABS: Lymphocytes % 28 %; Monocytes % 1 %; Neutrophil % 71 %
[2018-06-16] MEDS: Tiotropium CAP.INH* CAP.INH/18 MCG (USE ORDER SET !) INH SCH (08:01)
[2018-06-16 08:15] LABS: Potassium 4.3 mmol/L (3.5-5.0)
[2018-06-16 08:21] LABS: BUN/Creatinine Ratio 23.2 (8-20); EGFR African American 45.4 (>60); EGFR Non-African American 37.5 (>60)
--- NOTE | 2018-06-16 10:59 | PN ---
Subjective Date of Service: 06/16/18 Interval History: Pt states that she feels better today than yesterday, but that she still has cough. She denies fever. She states that she is concerned with the blood in her urine. She states that the blood does not appear on pantyliners or in the toilet after urination, but is on toilet tissue when she wipes. Objective Active Medications: Acetaminophen (Tylenol Tab*) 650 mg PO Q4H PRN Albuterol (Ventolin 2.5 Mg/3 Ml Neb.Lois*) 2.5 mg INH [id number] AWAKE PRN Albuterol (Ventolin Hfa Inhaler*) 2 puff INH Q4H PRN Alprazolam (Xanax Tab*) 0.25 mg PO BID PRN Atorvastatin Calcium (Lipitor*) 20 mg PO DAILY LIYAH Calcium Carbonate (Tums*) 500 mg PO BID PRN Carvedilol (Coreg Tab*) 25 mg PO BID LIYAH Device (Nicotine Mouth Piece*) 1 each INH ONCE PRN Diltiazem HCl (Cardizem Cd Cap*) 180 mg PO DAILY LIYAH Docusate Sodium (Colace Cap*) 100 mg PO BID PRN Ferrous Sulfate (Ferrous Sulfate Tab*) 325 mg PO DAILY LIYAH Multivitamins/Minerals (Theragran/Minerals Tab*) 1 tab PO DAILY LIYAH Nicotine (Nicotine Inhaler*) 10 mg INH Q2H PRN Oseltamivir Phosphate (Tamiflu Cap*) 30 mg PO BID LIYAH Potassium Chloride (Klor Con Er Tab*) 20 meq PO DAILY LIYAH Prednisone (Deltasone Tab*) 40 mg PO DAILY LIYAH Quetiapine Fumarate (Seroquel Tab*) 200 mg PO BEDTIME LIYAH Spironolactone (Aldactone Tab*) 50 mg PO DAILY LIYAH Tiotropium [place] (Spiriva Cap.Inh*) 1 cap INH DAILY LIYAH Torsemide (Demadex*) 40 mg PO BID LIYAH Tramadol HCl (Ultram*) 50 mg PO Q8HR PRN Trazodone HCl (Desyrel Tab*) 50 mg PO BEDTIME PRN Warfarin Sodium (Coumadin Tab(*)) 10 mg PO 1700 LIYAH; Protocol Warfarin Sodium (Coumadin Tab(*)) 2.5 mg PO DAILY@1700 LIYAH Vital Signs: Temp Pulse Resp BP Pulse Ox 97.4 F 90 20 130/91 95 01/03/19 07:44 06/16/18 07:44 06/16/18 09:28 06/16/18 07:44 06/16/18 07:44 Oxygen Devices in Use Now: None Appearance: Pt is sitting at edge of bed eating her breakfast. She is in no acute distress. Eyes: No Scleral Icterus, PERRLA, - - Without periorbital edema. Ears/Nose/Mouth/Throat: NL Teeth, Lips, Gums, Mucous Membranes Moist Neck: NL Appearance and Movements; NL JVP, Trachea Midline Respiratory: Symmetrical Chest Expansion and Respiratory Effort, Clear to Auscultation - Breath sounds decreased b/l due to body habitus Cardiovascular: NL Sounds; No Murmurs; No JVD, - - Regular rate, irregular rhythm Abdominal: NL Sounds; No Tenderness; No Distention, - - No CVA tenderness Extremities: No Clubbing, Cyanosis, - - B/l LE edema 1+ pitting Neurological: Alert and Oriented x 3 Result Diagrams: 06/16/18 06:37 06/16/18 06:37 Assess/Plan/Problems-Billing Assessment: Pt is an 62 yo obese female with a medical history of CKD, AF, CHF, COPD, anemia , HTN, HLD, FRANCIS who presented to the ER with Flu A and was admitted. She has a history of b/l PE in Jun 2017 and lymphoma. - Patient Problems (1) Influenza Code(s): J11.1 - FLU DUE TO UNIDENTIFIED INFLUENZA VIRUS W OTH RESP MANIFEST SNOMED Code(s): 2490469 Comment: -No fever -Continue symptomatic treatment -Continue Tamiflu (2) COPD (chronic obstructive pulmonary disease) Comment: -No exacerbation noted -Continue nebulizers, prednisone (3) Afib Comment: -Pt has CV/Defib; rate controlled with carvedilol, diltiazem; pt on Coumadin; overnight tele showed AF and PVCs -Continue above medications -Continue tele monitor (4) Hematuria Comment: -Kidney function WNL, edema with WNL, without CVA tenderness -Continue to await cultures -Bladder US ordered -Comnsider follow up with urology as outpatient (5) Chronic kidney disease Comment: -BUN, Cr are elevated, but are not outside of baseline -Continue to monitor (6) Congestive heart failure Comment: -Pt with b/l LE edema, 1+ pitting, which she states is baseline -Continue medication regimen (7) Hypertension Comment: -BP stable -Continue torsemide, spironolactone, carvedilol, diltiazem (8) Hyperlipidemia Comment: -Continue atorvastatin (9) Morbid obesity Comment: -BMI 55.7 (10) DVT prophylaxis Comment: -Pt on warfarin (11) Full code status Comment: Status and Disposition: Inpatient. Discharge when stable.
[2018-06-16] MEDS: Warfarin TAB(*) 2.5 MG PO SCH (15:40)
[2018-06-16] MEDS: Warfarin TAB(*) 10 MG PO SCH (15:40)
[2018-06-16] MEDS: QUEtiapine TAB* 100 MG PO SCH (20:18)
[2018-06-17] MEDS: traMADol TAB* 50 MG PO PRN (03:35)
[2018-06-17 07:22] LABS: ABS Basophils 0 10^3/ul (0-0.2); ABS Eosinophils 0 10^3/ul (0-0.6); ABS Lymphocytes 0.8 10^3/ul (1.0-4.8); ABS Monocytes 0.7 10^3/ul (0-0.8); ABS Neutrophils 5.8 10^3/ul (1.5-7.7); ABS Nucleated RBC 0 10^3/ul; Eosinophil % 0.1 %; Hematocrit 35 % (35-47); Hemoglobin 11.2 g/dl (12.0-16.0); Lymphocyte % 11.4 %; Mean Corpuscular HGB Conc 32 g/dl (31-36); Mean Corpuscular Hemoglobin 26 pg (27-31); Mean Corpuscular Volume 82 fL (80-97); Mean Platelet Volume 9.1 fL (7.4-10.4); Nucleated Red Blood Cells % 0.1; Platelet Count 182 10^3/ul (150-450); Red Blood Count 4.31 10^6/ul (4.00-5.40); Red Cell Distribution Width 19 % (10.5-15); White Blood Count 7.4 10^3/ul (3.5-10.8)
[2018-06-17] MEDS: Tiotropium CAP.INH* CAP.INH/18 MCG (USE ORDER SET !) INH SCH (07:45)
[2018-06-17 07:47] LABS: BUN/Creatinine Ratio 33.1 (8-20); EGFR African American 51.6 (>60); EGFR Non-African American 42.6 (>60); Potassium 3.6 mmol/L (3.5-5.0)
--- NOTE | 2018-06-17 09:46 | PN ---
Subjective Date of Service: 06/17/18 Interval History: Pt states that she is feeling better today. She continues to have intermittent bouts of coughing that are non productive. She states that she continues to have chills/sweats, but she does not have a fever. She admits to occasional muscle pain and weakness. She denies xie, chest pain, shortness of breath, abdominal pain, n/v/d/c. She will return home today. She lives with her grandson, who helps her. Objective Active Medications: Acetaminophen (Tylenol Tab*) 650 mg PO Q4H PRN Albuterol (Ventolin 2.5 Mg/3 Ml Neb.Lois*) 2.5 mg INH [id number] AWAKE PRN Albuterol (Ventolin Hfa Inhaler*) 2 puff INH Q4H PRN Alprazolam (Xanax Tab*) 0.25 mg PO BID PRN Atorvastatin Calcium (Lipitor*) 20 mg PO DAILY LIYAH Calcium Carbonate (Tums*) 500 mg PO BID PRN Carvedilol (Coreg Tab*) 25 mg PO BID LIYAH Device (Nicotine Mouth Piece*) 1 each INH ONCE PRN Diltiazem HCl (Cardizem Cd Cap*) 180 mg PO DAILY LIYAH Docusate Sodium (Colace Cap*) 100 mg PO BID PRN Ferrous Sulfate (Ferrous Sulfate Tab*) 325 mg PO DAILY LIYAH Multivitamins/Minerals (Theragran/Minerals Tab*) 1 tab PO DAILY LIYAH Nicotine (Nicotine Inhaler*) 10 mg INH Q2H PRN Oseltamivir Phosphate (Tamiflu Cap*) 30 mg PO BID LIYAH Potassium Chloride (Klor Con Er Tab*) 20 meq PO DAILY LIYAH Prednisone (Deltasone Tab*) 40 mg PO DAILY LIYAH Quetiapine Fumarate (Seroquel Tab*) 200 mg PO BEDTIME LIYAH Spironolactone (Aldactone Tab*) 50 mg PO DAILY LIYAH Tiotropium [place] (Spiriva Cap.Inh*) 1 cap INH DAILY LIYAH Torsemide (Demadex*) 40 mg PO BID LIYAH Tramadol HCl (Ultram*) 50 mg PO Q8HR PRN Trazodone HCl (Desyrel Tab*) 50 mg PO BEDTIME PRN Warfarin Sodium (Coumadin Tab(*)) 10 mg PO 1700 LIYAH; Protocol Warfarin Sodium (Coumadin Tab(*)) 2.5 mg PO DAILY@1700 LIYAH Vital Signs: Temp Pulse Resp BP Pulse Ox 97.4 F 82 14 121/98 95 06/17/18 07:42 06/17/18 08:05 06/17/18 07:45 06/17/18 08:05 06/17/18 07:45 Oxygen Devices in Use Now: Nasal Cannula Appearance: Pt is sitting at the edge of her bed eating breakfast. She is in no acute distress. Eyes: No Scleral Icterus, PERRLA Ears/Nose/Mouth/Throat: NL Teeth, Lips, Gums, Mucous Membranes Moist Neck: NL Appearance and Movements; NL JVP, Trachea Midline Respiratory: Symmetrical Chest Expansion and Respiratory Effort - Occasional wheeze diffusely. Cardiovascular: NL Sounds; No Murmurs; No JVD, - - Regular rate; irregular rhythm Abdominal: NL Sounds; No Tenderness; No Distention, No Hepatosplenomegaly Extremities: No Edema, No Clubbing, Cyanosis Skin: No Rash or Ulcers Neurological: Alert and Oriented x 3 Result Diagrams: 06/17/18 06:54 06/17/18 06:54 Microbiology and Other Data: Microbiology 06/15/18 13:25 Gram Stain - Final Sputum Expectorated 06/15/18 Unknown Influenza Types A,B Antigen - Final Nasal Specimen received for Influenza A/B Molecular testing Assess/Plan/Problems-Billing Assessment: Pt is an 62 yo obese female with a medical history of CKD, AF, CHF, COPD, anemia , HTN, HLD, FRANCIS who presented to the ER with Flu A and was admitted. She has a history of b/l PE in Jun 2017 and lymphoma. - Patient Problems (1) Influenza Code(s): J11.1 - FLU DUE TO UNIDENTIFIED INFLUENZA VIRUS W OTH RESP MANIFEST SNOMED Code(s): 1786002 Comment: -Continues to be afebrile -Continue symptomatic treatment -Continue Tamiflu (2) COPD (chronic obstructive pulmonary disease) Comment: -No exacerbation noted -Continue nebulizers, prednisone (3) Afib Comment: -Pt has CV/Defib; rate controlled with carvedilol, diltiazem; pt on Coumadin; overnight tele shows AF and PVCs -Continue above medications -Continue tele monitor (4) Hematuria Comment: -Kidney function WNL; cultures negative -Bladder US shows no hydronephorsis or nephrolithiasis. 10 mL postvoid residual. -Consider follow up with urology as outpatient (5) Chronic kidney disease Comment: -BUN, Cr are elevated, but are not outside of baseline -Continue to monitor (6) Congestive heart failure Comment: -Continue medication regimen (7) Hypertension Comment: -BP stable -Continue torsemide, spironolactone, carvedilol, diltiazem (8) Hyperlipidemia Comment: -Continue atorvastatin (9) Morbid obesity Comment: -BMI 55.7 (10) DVT prophylaxis Comment: -Pt on warfarin (11) Full code status Comment: Status and Disposition: Inpatient. Discharge when stable.
[2018-06-17] MEDS: Torsemide TAB* 20 MG PO SCH (09:56)
[2018-06-17] MEDS: Diltiazem CD CAP* 180 MG PO SCH (09:56)
[2018-06-17] MEDS: predniSONE TAB* 20 MG PO SCH (09:56)
[2018-06-17] MEDS: Ferrous Sulfate TAB* 325 MG PO SCH (09:56)
[2018-06-17] MEDS: Atorvastatin* 20 MG TAB PO SCH (09:56)
[2018-06-17] MEDS: Carvedilol TAB* 25 MG PO SCH (09:56)
[2018-06-17] MEDS: Spironolactone TAB* 25 MG PO SCH (09:56)
[2018-06-17] MEDS: Multivitamins/Minerals TAB PO SCH (09:57)
[2018-06-17] MEDS: Acetaminophen TAB* 325 MG PO PRN (09:57)
[2018-06-17] MEDS: Potassium Chlor TAB* 20 MEQ TAB.ER PO SCH (09:57)
[2018-06-17] MEDS: Oseltamivir CAP* 30 MG CAP PO SCH (09:58)
[2018-06-17 12:37] VITALS: BP 108/69
--- NOTE | 2018-06-18 00:07 | DS ---
DISCHARGE SUMMARY: DATE OF ADMISSION: 06/15/18 DATE OF DISCHARGE: 06/17/18 PRIMARY CARE PROVIDER: Blake Stuart MD. ATTENDING PHYSICIAN: DO Jose Ramon Vasquez (dictated by AYLA Munguia). PRIMARY DIAGNOSIS: Influenza. SECONDARY DIAGNOSES: 1. Bilateral pulmonary embolus in June 2017. 2. Lymphoma. 3. Chronic kidney disease. 4. Atrial fibrillation. 5. Congestive heart failure with an ejection fraction of 35 to 40%. 6. Chronic obstructive pulmonary disease. 7. Anemia. 8. Hypertension. 9. Hyperlipidemia. 10. Obstructive sleep apnea. STUDIES WHILE IN THE HOSPITAL: Abdominal and bladder ultrasound on 06/16/18, impression; no hydronephrosis or nephrolithiasis, 10 mL postvoid residual. DISCHARGE MEDICATIONS: Continued home medications: 1. Warfarin 12.5 mg p.o. daily. 2. Trazodone 50 to 150 mg p.o. at bedtime. 3. Tramadol 50 mg p.o. q.8 hours p.r.n. 4. Torsemide 40 mg p.o. b.i.d. 5. Tiotropium cap inhalation one cap inhalation daily. 6. Spironolactone 50 mg p.o. daily. 7. Quetiapine 200 mg p.o. at bedtime. 8. Potassium chloride tab 20 mEq p.o. daily. 9. Nicotine inhaler 10 mg inhalation q.2 hours p.r.n. 10. Diltiazem HCl 180 mg p.o. daily. 11. Ferrous sulfate tab 325 mg p.o. daily. 12. Docusate cap 100 mg p.o. b.i.d. p.r.n. 13. Multivitamin/minerals one tab p.o. daily. 14. Carvedilol 25 mg p.o. b.i.d. 15. Calcium carbonate chew 500 mg p.o. b.i.d. p.r.n. 16. Atorvastatin 20 mg p.o. daily. 17. Albuterol HFA inhaler 2 puffs inhalation q.4 hours p.r.n. 18. Alprazolam tab 0.25 mg p.o. b.i.d. 19. Acetaminophen 650 mg p.o. q.4 hours p.r.n. New home medications: 1. Prednisone 40 mg p.o. daily x3 days. 2. Oseltamivir 30 mg p.o. b.i.d. x6 doses. HISTORY OF PRESENT ILLNESS AND HOSPITAL COURSE: Ms. Robledo is a 62-year-old female with a past medical history of bilateral PE, chronic kidney disease, CHF , COPD, hypertension, hyperlipidemia, who presented to the ER on 06/15/18 with complaints of shortness of breath, cough, and fevers for approximately one week. She also complained of generalized body aches, fatigue and weakness. She states that she has had blood in her urine for approximately 3 weeks and that this is intermittent. In the ER, she had blood work as well as a flu test for which she tested positive for influenza A. She was then admitted to the hospital. She was started on Tamiflu 30 mg p.o. b.i.d., lower dosage was due to chronic kidney disease. She was placed on tele due to atrial fibrillation. She was treated symptomatically while in the hospital for her influenza. Her kidney function was monitored and a bladder ultrasound was ordered due to hematuria. Urine, blood and sputum cultures were performed which all showed no growth except for sputum culture revealed normal arabella as expected. She is also shown to have slightly elevated glucose throughout her hospital stay, the highest being a fasting morning glucose of 159. On day of discharge, the patient was afebrile with a normal white blood cell count. She stated she was feeling better. She admits to intermittent bouts of coughing that are nonproductive. She also states she continues to have chills and sweats, but she does not have a fever and she continues to have muscle pain and weakness. She denies any headache, chest pain, shortness of breath, abdominal pain, nausea , vomiting, diarrhea, or constipation. Ms. Robledo is medically stable for discharge to home. PHYSICAL EXAM: General: Patient is sitting up at the edge of the bed eating her breakfast, she is in no acute distress. Vital Signs: Temperature 97.5 orally, heart rate 82, respiratory rate 16, oxygen saturation is 96% on room air and blood pressure is 108/69. HEENT: Visual clark grossly intact. Pupils equally round and reactive to light and accommodation. Extraocular movements intact. Sclerae without icterus. Hearing grossly intact. Oral mucosa is moist. Tongue at midline. Neck: Normal appearance and movement. Trachea midline. Respiratory: Symmetrical chest expansion and respiratory effort. No use of accessory muscles. Occasional wheezes diffusely without rhonchi or rales. Cardiovascular: Regular rate and irregular rhythm. S1, S2 noted. No murmurs, rubs or gallops. No JVD. Abdomen: Bowel sounds in all 4 quadrants. No tenderness, no distention, no hepatosplenomegaly. Extremities: No edema, no clubbing, no cyanosis. Skin: No rashes or ulcers. Neuro: Alert and oriented x3. REVIEW OF SYMPTOMS: A 10-point review of systems was performed and all the pertinent positives and negatives are found in the HPI above, all other systems are negative. DISCHARGE PLAN: Ms. Robledo is stable for discharge to home. ACTIVITY: As tolerated. DIET: Heart healthy. MEDICATIONS: As above. EDUCATION: -Continue prednisone 40 for the next 3 days starting tomorrow for a total of 5 doses -Continue Tamiflu for the next 3 days starting tonight for a total of 6 more doses. Follow up with primary care provider regarding this hospital visit, chronic kidney disease, and elevated glucose while in the hospital. Follow up with primary care provider and Urology regarding hematuria. Follow up with primary care provider in 4 to 7 days. The patient should return to the ER or the nearest hospital if they experience any worsening of symptoms, shortness of breath, lightheadedness, dizziness, chest discomfort, high fevers, chills, night sweats, loss of consciousness, or any other worrisome signs or symptoms. This is a summarized report of a complex medical history and hospital stay. For further details, please see the entire medical record. TIME SPENT: Approximately 35 minutes were spent on this discharge, greater than half of that time spent [id number] with the patient discussing discharge plans and instructions. AYLA VALDES [id number]/[facility] #: [id number] FLOYD
== END 2018-06-17 14:10 | disposition home or self-care (01) ==
LOC: ED 12:43 → MED 18:10
PROVIDERS: ADMIT Hospitalist; ATTEND Hospitalist
DX: J11.1 Influenza due to unidentified influenza virus with other respiratory manifestations (principal); Z86.711 Personal history of pulmonary embolism; C85.90 Non-Hodgkin lymphoma, unspecified, unspecified site; I48.91 Unspecified atrial fibrillation; I50.9 Heart failure, unspecified; J44.9 Chronic obstructive pulmonary disease, unspecified; D64.9 Anemia, unspecified; I13.0 Hypertensive heart and chronic kidney disease with heart failure and stage 1 through stage 4 chronic kidney disease, or unspecified chronic kidney disease; E78.5 Hyperlipidemia, unspecified; G47.33 Obstructive sleep apnea (adult) (pediatric); Z79.01 Long term (current) use of anticoagulants; E66.01 Morbid (severe) obesity due to excess calories; Z68.43 Body mass index [BMI] 50.0-59.9, adult; R31.9 Hematuria, unspecified
CPT/HCPCS: 36415; 71045; 76770; 80048; 80053; 81003; 81015; 82550; 82553; 83605; 83735; 83880; 84443; 84484; 85025; 85379; 85610; 87040; 87070; 87086; 87205; 93005; 94640; 96374; 99284; A9270-GY; G0378; J2930; J7512

== ENCOUNTER 2018-09-12 20:01 | Emergency (ER) | payer OTHER, MEDICARE ==
[2018-09-12] MEDS ORDERED: Albuterol/Ipratropium NEB.SOL* Albuterol 2.5 MG/Ipratropium 0.5 MG 3 ML INH ONE (21:32)
[2018-09-12] MEDS ORDERED: Albuterol 2.5 MG/3 ML NEB.SOL* (0.083%) INH ONE (21:32)
[2018-09-12] MEDS ORDERED: predniSONE TAB* 20 MG PO ONE (21:32)
--- NOTE | 2018-09-12 21:39 | ED ---
Respiratory - HPI Summary HPI Summary: Pt is a 63 y/o F presenting to the ED with a chief respiratory complaint. The pt has a cough onset three weeks ago that has not gone away, and she also reports fever, painful glands, and shortness of breath. These sx are accompanied by weakness and bodyaches, per triage note. She denies being on chemo or using a nebulizer at home for her COPD. She has been using her oxygen quite a bit at home, but not her inhaler. - History of Current Complaint Chief Complaint: EDGeneral Stated Complaint: COLD FOR 3RD WEEK,TIGHTNESS IN CHEST PER PT Time Seen by Provider: 09/12/18 21:11 Hx Obtained From: Patient Onset/Duration: Lasting Weeks, Still Present Timing: Constant Initial Severity: Severe Current Severity: Severe Pain Intensity: 8 Character: Cough (Nonproductive), Dyspnea at Rest Sputum Amount: None Aggravating Factor(s): Movement, Deep Breaths Alleviating Factor(s): Oxygen Associated Signs and Symptoms: Fever, SOB - Allergy/Home Medications Allergies/Adverse Reactions: Allergies Allergy/AdvReac Type Severity Reaction Status Date / Time aspirin Allergy Difficulty Verified 09/12/18 20:08 Breathing PMH/Surg Hx/FS Hx/Imm Hx Previously Healthy: No Endocrine/Hematology History: Denies: Hx Diabetes Cardiovascular History: Reports: Hx Angina, Hx Atrial Fibrillation, Hx Auto Implanted Cardiovert Defib, Hx Congestive Heart Failure, Hx Embolism - Pulmonary embolism June of 2017, Hx Hypertension, Other Cardiovascular Problems/Disorders - chronic afib Respiratory History: Reports: Hx Chronic Obstructive Pulmonary Disease (COPD) - Yes: pt reports 3-4L O2 at all times at home, CPAP at night, Hx Pulmonary Embolism, Hx Sleep Apnea - CPAP at night , Other Respiratory Problems/Disorders - ON 02 AT NIGHT, FRANCIS uses CPAP Denies: Hx Asthma History: Reports: Hx Chronic Renal Failure, Hx Renal Disease Musculoskeletal History: Reports: Hx Orthopedic Injury Sensory History: Denies: Hx Deafness Comment Only: Hx Contacts or Glasses - unable to obtain, Hx Hearing Aid - unable to obtain Opthamlomology History: Comment Only: Hx Contacts or Glasses - unable to obtain Psychiatric History: Reports: Hx Anxiety, Hx Depression - Cancer History Cancer Type, Location and Year: mantle cell lymphoma/12/23 - Surgical History Surgery Procedure, Year, and Place: hernia repair/orif right ankle,. fallopian tube surgery for ectopic - Immunization History Date of Tetanus Vaccine: utd Date of Influenza Vaccine: 02/2018 Infectious Disease History: No Infectious Disease History: Denies: Hx of Known/Suspected MRSA, Traveled Outside the [place] in Last 30 Days - Family History Known Family History: Positive: Unknown, Diabetes - father, Other - Father - Lung cancer Negative: Cardiac Disease, Hypertension - Social History Occupation: Unemployed Lives: With Family Alcohol Use: Occasionally Alcohol Amount: monthly Hx Substance Use: No Substance Use Type: Reports: None Hx Tobacco Use: Yes Smoking Status (MU): Former Smoker Type: Cigarettes Amount Used/How Often: 1/2 ppd Length of Time of Smoking/Using Tobacco: 39 years Have You Smoked in the Last Year: Yes Review of Systems Positive: Fever, Other - painful glands Positive: Shortness Of Breath, Cough Positive: Myalgia - body aches Positive: Weakness All Other Systems Reviewed And Are Negative: Yes Physical Exam Triage Information Reviewed: Yes Vital Signs On Initial Exam: Initial Vitals Temp Pulse Resp BP Pulse Ox 99.2 F 113 18 123/83 94 09/12/18 20:04 09/12/18 20:04 09/12/18 20:04 09/12/18 20:04 09/12/18 20:04 Vital Signs Reviewed: Yes Diagnostics - Vital Signs Vital Signs Temp Pulse Resp BP Pulse Ox 09/12/18 20:04 99.2 F 113 18 123/83 94 - Laboratory Result Diagrams: 09/12/18 21:43 09/12/18 21:43 Lab Statement: Any lab studies that have been ordered have been reviewed, and results considered in the medical decision making process. - Radiology CXR Radiology Interpretation Completed By: ED Physician Summary of Radiographic Findings: Cardiomegaly. No acute infiltrate. Pending official radiology report. Official radiology report: Cardiomegaly with interstitial edema c/w vascular congestion. ED physician has reviewed this report. Disposition - Course Course Of Treatment: Pt is a 63 y/o F presenting to the ED with a chief respiratory complaint. The pt has a cough onset three weeks ago that has not gone away, and she also reports fever, painful glands, and shortness of breath. These sx are accompanied by weakness and bodyaches, per triage note. CXR shows cardiomegaly, no acute infiltrate, pending official radiology report. Official radiology report: Cardiomegaly with interstitial edema c/w vascular congestion. ED physician has reviewed this report. The pt is negative for Influenza A & B. As of 2254, the pt is feeling better, is aware that her kidney function has been worse recently. She has been instructed to follow up with her primary care physician regarding this. She is stable and ready for discharge with a dx of COPD. - Diagnoses Provider Diagnoses: COPD (chronic obstructive pulmonary disease) Discharge - Sign-Out/Discharge Documenting (check all that apply): Patient Departure Patient Received Moderate/Deep Sedation with Procedure: No - Discharge Plan Condition: Stable Disposition: HOME Referrals: Blake Stuart MD [Primary Care Provider] - Additional Instructions: Please follow up with your primary care provider regarding your kidney function in 2-3 days. Return to the emergency department with any new or worsening symptoms. - Attestation Statements Document Initiated by Roderickibe: Yes Documenting Scribe: Genesis Trujillo Provider For Whom Roderickibe is Documenting (Include Credential): Aura Stark MD. Scribe Attestation: Genesis Bello, mohaned for Aura Stark MD. on 09/12/18 at 2259. Status of Scribe Document: Ready
[2018-09-12 21:51] LABS: Hematocrit 33 % (33-41); Hemoglobin 10.6 g/dL (12.0-16.0); Mean Corpuscular HGB Conc 32 g/dL (31-36); Mean Corpuscular Hemoglobin 25 pg (27-31); Mean Corpuscular Volume 77 fL (80-97); Mean Platelet Volume 8.8 fL (7.4-10.4); Platelet Count 215 10^3/uL (150-450); Red Blood Count 4.24 10^6 /uL (3.70-4.87); Red Cell Distribution Width 15 % (10.5-15); White Blood Count 7.1 10^3/uL (3.5-10.8)
[2018-09-12 21:58] LABS: Influenza A Molecular NEGATIVE (Negative); Influenza B Molecular NEGATIVE (Negative)
[2018-09-12 22:01] LABS: Activated Partial Thrombo Time 30.8 seconds (26.0-36.3); INR 1.14 (0.77-1.02)
[2018-09-12 22:05] LABS: Albumin 3.6 g/dL (3.2-5.2); BUN/Creatinine Ratio 21.8 (8-20); Calcium 9.1 mg/dL (8.6-10.3); EGFR Non-African American 25.6 (>60); Globulin 3.5 g/dL (2-4); Potassium 4.4 mmol/L (3.5-5.0); Total Bilirubin 0.5 mg/dL (0.2-1.0); Total Protein 7.1 g/dL (6.4-8.9)
[2018-09-12] MEDS ORDERED: Codeine TAB* 30 MG PO ONE (22:08)
[2018-09-12 23:10] VITALS: BP 123/89
== END 2018-09-12 23:08 | disposition home or self-care (01) ==
LOC: ED 20:01
DX: J44.9 Chronic obstructive pulmonary disease, unspecified (principal); F41.9 Anxiety disorder, unspecified; F32.9 Major depressive disorder, single episode, unspecified; I48.91 Unspecified atrial fibrillation; N18.9 Chronic kidney disease, unspecified; Z87.891 Personal history of nicotine dependence
CPT/HCPCS: 36415; 71046; 80053; 85027; 85610; 85730; 99283; A9270-GY; J7512

== ENCOUNTER 2018-09-26 19:54 | Observation (INO) | payer MEDICARE, OTHER ==
[2018-09-26] MEDS ORDERED: Albuterol/Ipratropium NEB.SOL* Albuterol 2.5 MG/Ipratropium 0.5 MG 3 ML INH ONE (22:38)
--- NOTE | 2018-09-26 22:41 | ED ---
HPI Cardiac - HPI Summary HPI Summary: Patient is a 63 y/o F presenting to ED with complaints of chest tightness, palpitations, SOB, light-headedness which is characterized as feeling near syncopal. Patient's male repair operator is present in the room. PMHx of afib with cardioversion, patient is noted to be in constant afib. She is on a blood thinner and diuretic, patient notes that she used inhaler today with minimal relief in SOB. On triage, pain is rated 1/10. Nothing is noted to aggravate/ alleviate Sx. Home medications and allergies are reviewed. - History of Current Complaint Chief Complaint: EDShortnessOfBreath Stated Complaint: TIGHTNESS IN CHEST,SOB PER PT Time Seen by Provider: 09/26/18 22:26 Hx Obtained From: Patient Onset/Duration: Still Present Timing: Constant Current Severity: Mild - 1/10 Pain Intensity: 1 Pain Scale Used: 0-10 Numeric - 1/10 Character: Tightness, Other: - AFIB Aggravating Factor(s): Nothing Alleviating Factor(s): Nothing Associated Signs and Symptoms: Positive: Chest Pain, Dizziness - light- headedness, Shortness of Breath, Palpitations - Additional Pertinent History Primary Care Physician: [id number] - Allergy/Home Medications Allergies/Adverse Reactions: Allergies Allergy/AdvReac Type Severity Reaction Status Date / Time aspirin Allergy Difficulty Verified 09/12/18 20:08 Breathing PMH/Surg Hx/FS Hx/Imm Hx Endocrine/Hematology History: Denies: Hx Diabetes Cardiovascular History: Reports: Hx Angina, Hx Atrial Fibrillation, Hx Auto Implanted Cardiovert Defib, Hx Congestive Heart Failure, Hx Embolism - Pulmonary embolism June of 2017, Hx Hypertension, Other Cardiovascular Problems/Disorders - chronic afib Respiratory History: Reports: Hx Chronic Obstructive Pulmonary Disease (COPD) - Yes: pt reports 3-4L O2 at all times at home, CPAP at night, Hx Pulmonary Embolism, Hx Sleep Apnea - CPAP at night , Other Respiratory Problems/Disorders - ON AT NIGHT, FRANCIS uses CPAP Denies: Hx Asthma History: Reports: Hx Chronic Renal Failure, Hx Renal Disease Musculoskeletal History: Reports: Hx Orthopedic Injury Sensory History: Denies: Hx Deafness Comment Only: Hx Contacts or Glasses - unable to obtain, Hx Hearing Aid - unable to obtain Opthamlomology History: Comment Only: Hx Contacts or Glasses - unable to obtain Psychiatric History: Reports: Hx Anxiety, Hx Depression - Cancer History Cancer Type, Location and Year: mantle cell lymphoma/12/23 - Surgical History Surgery Procedure, Year, and Place: hernia repair/orif right ankle,. fallopian tube surgery for ectopic - Immunization History Date of Tetanus Vaccine: utd Date of Influenza Vaccine: 02/2018 Infectious Disease History: No Infectious Disease History: Denies: Hx of Known/Suspected MRSA, Traveled Outside the [place] in Last 30 Days - Family History Known Family History: Positive: Diabetes - father, Other - Father - Lung cancer Negative: Cardiac Disease, Hypertension - Social History Alcohol Use: Occasionally Alcohol Amount: monthly Hx Substance Use: No Substance Use Type: Reports: None Hx Tobacco Use: Yes Smoking Status (MU): Former Smoker Type: Cigarettes Amount Used/How Often: 1/2 ppd Length of Time of Smoking/Using Tobacco: 39 years Have You Smoked in the Last Year: Yes Review of Systems Positive: Palpitations, Chest Pain - tightness Positive: Shortness Of Breath Neurological: Other - POSITIVE - LIGHT HEADEDNESS/NEAR SYNCOPAL All Other Systems Reviewed And Are Negative: Yes Physical Exam - Summary Physical Exam Summary: VITAL SIGNS: Reviewed. GENERAL: Patient is a well-developed and morbidly obese female who is lying comfortable in the stretcher. Patient is not in any acute respiratory distress. HEAD AND FACE: No signs of trauma. No ecchymosis, hematomas or skull depressions. No sinus tenderness. EYES: PERRLA, EOMI x 2, No injected conjunctiva, no nystagmus. EARS: Hearing grossly intact. Ear canals and tympanic membranes are within normal limits. MOUTH: Oropharynx within normal limits. NECK: Supple, trachea is midline, no adenopathy, no JVD, no carotid bruit, no c- spine tenderness, neck with full ROM. CHEST: Symmetric, no tenderness at palpation LUNGS: Decreased breath sounds bilaterally. No wheezing or crackles. CVS: irregularly irregular rate and rhythm, S1 and S2 present, no murmurs or gallops appreciated. ABDOMEN: Soft, non-tender. No signs of distention. No rebound no guarding, and no masses palpated. Bowel sounds are normal. EXTREMITIES: FROM in all major joints, no edema, no cyanosis or clubbing. NEURO: Alert and oriented x 3. No acute neurological deficits. Speech is normal and follows commands. SKIN: Dry and warm Triage Information Reviewed: Yes Vital Signs On Initial Exam: Initial Vitals Temp Pulse Resp BP Pulse Ox 97.4 F 93 22 113/81 94 09/26/18 20:00 09/26/18 20:00 09/26/18 20:00 09/26/18 20:00 09/26/18 20:00 Vital Signs Reviewed: Yes Diagnostics - Vital Signs Vital Signs Temp Pulse Resp BP Pulse Ox 09/26/18 20:00 97.4 F 93 22 113/81 94 - Laboratory Result Diagrams: 09/26/18 23:04 09/26/18 23:03 Lab Statement: Any lab studies that have been ordered have been reviewed, and results considered in the medical decision making process. - Radiology chest xray Radiology Interpretation Completed By: ED Physician Summary of Radiographic Findings: CXR showed cardiomegaly and bilateral interstitial infiltrate consistent with CHF pending official report. - EKG 2014 Cardiac Rate: Other Rate - afib with rate of 87 BPM EKG Rhythm: Atrial Fibrillation Summary of EKG Findings: EKG showed afib with rate of 87 BPM and non-specific T wave changes. Disposition - Course Course Of Treatment: Patient is a 63 y/o F presenting to ED with complaints of chest tightness, palpitations, SOB, light-headedness which is characterized as feeling near syncopal. PMHx of afib with cardioversion, patient is noted to be in constant afib. She is on a blood thinner and diuretic, patient notes that she used inhaler today with minimal relief in SOB. On physical exam, patient is noted to be morbidly obese, heartbeat is irregularly irregular, patient has decreased breath sounds bilaterally. EKG showed afib with rate of 87 BPM and non-specific T wave changes. CXR showed cardiomegaly and bilateral interstitial infiltrate consistent with CHF. During ED course, patient received Lasix 40 mg IV, duonev 1 neb INH, and Albuterol 2.5 mg INH Q20M. Labs showed Hgb 11.6, MCV 78, MCH 25, RDW 16, INR 1.83, BUN 47, creatinine 1.61, BUN/ creatinine 29.2, glucose 111, AST 11, trop 0.01, CRP 25.27, BNP 127. 0022 - Patient's case was discussed with Dr. Adorno, Dr. Adorno accepts for admission. - Diagnoses Provider Diagnoses: COPD (chronic obstructive pulmonary disease), CHF (congestive heart failure) - Physician Notifications Discussed Care Of Patient With: Sylwia Adorno Time Discussed With Above Provider: 00:22 Instructed by Provider To: Other - 0022 - Patient's case was discussed with Dr. Adorno, Dr. Adorno accepts for admission. Discharge - Sign-Out/Discharge Documenting (check all that apply): Patient Departure - admit Patient Received Moderate/Deep Sedation with Procedure: No - Discharge Plan Condition: Good Disposition: ADMITTED TO [facility] Referrals: Blake Stuart MD [Primary Care Provider] - - Attestation Statements Document Initiated by Scribe: Yes Documenting Scribe: LAURE ULLOA Provider For Whom Scribe is Documenting (Include Credential): JANAE CAMACHO MD Scribe Attestation: LAURE Bello, scribed for JANAE CAMACHO MD on 09/27/18 at 0051. Status of Scribe Document: Ready
[2018-09-26] MEDS ORDERED: Furosemide IV* 10 MG/ML VIAL (40 MG) IV SLOW PU ONE (22:52)
[2018-09-26 23:16] LABS: ABS Basophils 0 10^3/ul (0-0.2); ABS Eosinophils 0.1 10^3/ul (0-0.6); ABS Lymphocytes 1.5 10^3/ul (1.0-4.8); ABS Monocytes 0.4 10^3/ul (0-0.8); ABS Neutrophils 6.8 10^3/ul (1.5-7.7); ABS Nucleated RBC 0 10^3/ul; Eosinophil % 0.8 %; Hematocrit 36 % (33-41); Hemoglobin 11.6 g/dL (12.0-16.0); Lymphocyte % 16.9 %; Mean Corpuscular HGB Conc 32 g/dL (31-36); Mean Corpuscular Hemoglobin 25 pg (27-31); Mean Corpuscular Volume 78 fL (80-97); Mean Platelet Volume 8.9 fL (7.4-10.4); Nucleated Red Blood Cells % 0.3; Platelet Count 183 10^3/uL (150-450); Red Blood Count 4.62 10^6 /uL (3.70-4.87); Red Cell Distribution Width 16 % (10.5-15); White Blood Count 8.9 10^3/uL (3.5-10.8)
[2018-09-26 23:25] LABS: Activated Partial Thrombo Time 36.1 seconds (26.0-36.3); INR 1.83 (0.77-1.02)
[2018-09-26 23:33] LABS: Albumin 3.5 g/dL (3.2-5.2); Albumin/Globulin Ratio 1.1 (1-3); BUN/Creatinine Ratio 29.2 (8-20); C Reactive Protein 25.27 mg/L (<8.01); Calcium 8.9 mg/dL (8.6-10.3); EGFR African American 39.1 (>60); EGFR Non-African American 32.3 (>60); Globulin 3.2 g/dL (2-4); Potassium 4.7 mmol/L (3.5-5.0); Total Bilirubin 0.4 mg/dL (0.2-1.0); Total Protein 6.7 g/dL (6.4-8.9)
[2018-09-26 23:36] LABS: Troponin I 0.01 ng/mL (<0.04)
[2018-09-27] MEDS: Albuterol 2.5 MG/3 ML NEB.SOL* (0.083%) INH SCH ×2 (00:06→00:44)
[2018-09-27] MEDS ORDERED: traMADol TAB* 50 MG PO PRN (04:10)
[2018-09-27] MEDS ORDERED: Nicotine Inhaler* 10 MG AMP INH PRN (04:10)
[2018-09-27] MEDS ORDERED: Docusate CAP* 100 MG PO PRN (04:10)
[2018-09-27] MEDS ORDERED: Calcium Carbonate CHEW TAB* 500 MG (TUMS) PO PRN (04:10)
[2018-09-27] MEDS: Acetaminophen TAB* 325 MG PO PRN ×2 (05:46→13:41)
[2018-09-27] MEDS ORDERED: Mouth Piece, Nicotine* 1 EACH CARTRIDGE INH ONE (06:00)
[2018-09-27] MEDS ORDERED: Furosemide IV* 10 MG/ML 10 ML VIAL (100 MG) IV ONE (06:00)
--- NOTE | 2018-09-27 06:57 | HP ---
HISTORY AND PHYSICAL: DATE OF ADMISSION: 09/27/18 PRIMARY CARE PROVIDER: Dr. Stuart. FUEL DOCK ATTENDANT: Dr. Garrido. DOCUMENT IMAGING SPECIALIST: Anmol Robledo, the patient's . CODE STATUS: Full. SOURCE OF INFORMATION: HPI is obtained from the patient who is an excellent historian. CHIEF COMPLAINT: Cough, shortness of breath. HISTORY OF PRESENT ILLNESS: This is a 63-year-old female with past medical history with COPD, on p.r.n. home oxygen; heart failure with reduced ejection fraction of 35% to 40%; pulmonary embolism, on anticoagulation; lymphoma and anemia, followed by Dr. Jc; hypertension; hyperlipidemia; FRANCIS, on CPAP; atrial fibrillation, on anticoagulation; CKD; anxiety and tobacco use, who presents to the emergency room with shortness of breath and cough for 1 to 2 weeks. The patient reports that about 3 weeks ago, she was diagnosed with influenza, took Tamiflu and overall was getting better, but has had persistent cough with shortness of breath and presented to the emergency room today because her shortness of breath was getting to the point where she felt winded on tasks that she did not use to feel exerted on. Furthermore, she had a chronic cough that was nagging her and wanted to make sure that she did not have pneumonia. Review of systems is negative for fevers, chills, and malaise, but it is positive for like occasional dizziness and sometimes palpitations and that also concerned her which prompted her presentation. EMERGENCY ROOM COURSE: Her blood pressure was 110/68, heart rate is fib in the 80s, she was 93% on 3 L, respiratory rate 16. Labs were done, which showed unremarkable CBC, a BMP with a creatinine of 1.6 consistent with her baseline and a BNP of 127. EKG shows fib and rate in the 80s. Chest x-ray showed bilateral interstitial edema with peribronchial cuffing. The patient was given a DuoNeb, Lasix 40 mg IV and the hospitalist team was asked to evaluate her for CHF exacerbation. PAST MEDICAL HISTORY: 1. Heart rate, reduced ejection fraction 35% to 40%. 2. COPD, on home p.r.n. oxygen. 3. Hypertension. 4. Hyperlipidemia. 5. FRANCIS, on CPAP. 6. AFib, on AC. 7. CKD. 8. Anxiety. 9. Tobacco use. 10. Pulmonary embolisms in 2018, remains on AC. PAST SURGICAL HISTORY: Right ankle fracture and AICD placement. MEDICATIONS: 1. Albuterol 2 puffs inhaled q.4 hours p.r.n. for shortness of breath. 2. Torsemide 40 mg p.o. b.i.d. 3. Trazodone 50 mg to 100 mg p.o. q.h.s. 4. Acetaminophen 325 mg p.o. q.4 hours. 5. Alprazolam 0.25 mg p.o. b.i.d. 6. Atorvastatin 20 mg p.o. daily. 7. Calcium carbonate 500 mg p.o. b.i.d. 8. Carvedilol 25 mg p.o. b.i.d. 9. Diltiazem 100 mg p.o. daily. 10. Docusate 100 mg p.o. b.i.d. 11. Multivitamin 1 tab p.o. daily. 12. Nicotine inhaler 10 mg inhaled q.2 hours p.r.n. for cravings. 13. Potassium chloride 20 mEq p.o. daily. 14. Quetiapine 200 mg p.o. q.h.s. 15. Spironolactone 50 mg p.o. daily. 16. Spiriva 1 cap inhaled daily. 17. Tramadol 50 mg q.8 hours p.r.n. for pain. 18. Warfarin 10 mg p.o. daily. ALLERGIES: ASPIRIN. FAMILY HISTORY: Father with diabetes and lung cancer. Mother, unknown. SOCIAL HISTORY: Tobacco: She is a current 3 cigarette per day user, but not every day. Alcohol: Social and frequent. Illicits: Never. She lives with her grandson and her . 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 REVIEW OF SYSTEMS: Constitutional: Negative for fevers, chills. Positive for malaise. HEENT: Negative for vision changes, headaches, sore throat. Cardiovascular: Negative for chest pain. Positive for palpitations, although not current. Negative for orthopnea. Respiratory: Positive for dyspnea on exertion, cough. Negative for pleuritic chest pain. GI: Negative for nausea, vomiting, diarrhea, abdominal pain. : Negative for dysuria, hematuria. Musculoskeletal: Negative for myalgias, arthralgias, or weakness. Skin: Negative for rashes or lesions. Neurologic: Negative for focal weakness or numbness. Psychiatric: Negative for anxiety or depression. Endocrine: Negative for polyuria, polydipsia. Heme: Negative for bruising, bleeding, or lymphadenopathy. PHYSICAL EXAMINATION GENERAL APPEARANCE: This is a very well-appearing lady, lying in bed, in no acute distress, pleasant and conversant. VITAL SIGNS: At the time of physical exam, the patient is afebrile, pulse rate 88 and fib, respiratory rate 12, oxygen saturation 94% on room air, blood pressure 110/68. HEENT: Eyes are PERRLA. Extraocular muscles intact. Moist mucous membranes. NECK: Supple with no cervical lymphadenopathy. RESPIRATORY: The patient is actually clear to auscultation bilaterally. By the time I have examined her lungs, she has possibly scant crackles in left lower lung base. CARDIAC: Irregularly irregular. AICD pocket clean, dry, intact. No murmurs, rubs, or gallops. Belly is obese, soft, nontender, nondistended with normoactive bowel sounds. MUSCULOSKELETAL: She moves all 4 limbs spontaneously. EXTREMITIES: She has 2+ palpable pulses in bilateral lower extremities with 1+ nonpitting edema to bilateral lower extremities. NEURO: Cranial nerves II through XII are intact with no focal deficits. She is A and O x4. SKIN: Without rashes or lesions. DIAGNOSTIC STUDIES/LAB DATA: White blood cell count of 8.9, hemoglobin of 11.6 , hematocrit of 36, platelets of 183. Chemistry shows sodium of 139, potassium 4.7, chloride 103, carbon dioxide 29, anion gap 7, creatinine 1.6, glucose 111. AST 11, ALT 17, alkaline phosphatase 66. BNP elevated at 127. CRP 25.27. Trop is 0.01. Chest x-ray was done, which showed bilateral interstitial edema with peribronchial cuffing. EKG shows fib in rate of 80s with no active ischemia. Labs, imaging, and radiology were reviewed by myself. ASSESSMENT AND PLAN: A 63-year-old female with past medical history of heart failure with reduced ejection fraction of 35% to 40%; chronic obstructive pulmonary disease, on home p.r.n. oxygen; atrial fibrillation, on anticoagulation; history of pulmonary embolism; hypertension; hyperlipidemia; FRANCIS; history of lymphoma; anxiety; chronic kidney disease; and current tobacco use, who presents to the emergency room with persistent cough, dyspnea on exertion, and was found to have mild congestive heart failure exacerbation. All of this is in the setting of recent influenza diagnosed 2 weeks ago and suspect that she has lingering symptoms with a concurrent mild congestive heart failure exacerbation. The patient is appropriate for observation admission and likely will be stable to be discharged home within the next 24 hours. 1. Heart failure with acute mild exacerbation. Torsemide 40 mg b.i.d. is her home dose. We will give Lasix 60 mg IV 1 more time while on admission, may be discharge to home with increase in oral meds. The patient has no problem with compliance. We will continue her home beta-regina and spironolactone. 2. Chronic obstructive pulmonary disease. The patient reports she is compliant with nebulizers at home. We will offer DuoNeb. She has no active chronic obstructive pulmonary disease exacerbation at this time and she is on home p.r.n. oxygen. 3. Atrial fibrillation, on anticoagulation. Rate control agents and warfarin will be given. 4. Hypertension. Home spironolactone, carvedilol. 5. Anxiety. The patient is on home alprazolam and Seroquel to be offered. 6. Hyperlipidemia. We will continue statin. 7. Anemia. Stable. 8. Obstructive sleep apnea. We will offer CPAP. 9. Chronic kidney disease. Appears at baseline. 10. Tobacco use. P.r.n. nicotine inhaler. 11. DVT prophylaxis is with warfarin, anticoagulated therapeutically. 12. Diet is heart healthy. 13. Code status is full. 14. Disposition is stable for observation to med/tele floor for possible continued diuresis. Plan of care was discussed with the patient who is in agreeance with admission and further monitoring of symptoms. All labs, images reviewed with her and no further questions. TIME SPENT: Thirty minutes was spent on the planning of this admission with over half of that spent directly at the bedside with the patient offering direct patient care. [id number]/[facility] #: [id number] FLOYD
[2018-09-27] MEDS: Tiotropium CAP.INH* CAP.INH/18 MCG (USE ORDER SET !) INH SCH (08:55)
[2018-09-27] MEDS ORDERED: Spiriva Inhaler DEVICE* 1 EACH DEVICE INH ONE (09:00)
[2018-09-27] MEDS: Diltiazem CD CAP* 180 MG PO SCH (09:22)
[2018-09-27] MEDS: Potassium Chlor TAB* 20 MEQ TAB.ER PO SCH (09:22)
[2018-09-27] MEDS: ALPRAZolam TAB* 0.25 MG PO PRN ×2 (09:22→20:42)
[2018-09-27] MEDS: Multivitamins/Minerals TAB PO SCH (09:22)
[2018-09-27] MEDS: Atorvastatin* 20 MG TAB PO SCH (09:23)
[2018-09-27] MEDS: Spironolactone TAB* 25 MG PO SCH (09:23)
[2018-09-27] MEDS: Carvedilol TAB* 25 MG PO SCH ×2 (09:23→20:41)
[2018-09-27] MEDS ORDERED: Albuterol/Ipratropium NEB.SOL* Albuterol 2.5 MG/Ipratropium 0.5 MG 3 ML INH ONE (10:41)
[2018-09-27] MEDS ORDERED: Albuterol/Ipratropium NEB.SOL* Albuterol 2.5 MG/Ipratropium 0.5 MG 3 ML INH PRN (11:48)
--- NOTE | 2018-09-27 16:37 | PN ---
Subjective Date of Service: 09/27/18 Interval History: Patient reports that her shortness of breath is resolved. She has neck and shoulder pain. Additionally, she mentions a "chest tightness" which she did not mention at admission. She states clearly it is not a pain and points to the center of her chest. She frequently mentions she would like to see a cattle sorter. She denies palpitations or tachycardia, nausea, vomiting, abd pain. Objective Active Medications: Acetaminophen (Tylenol Tab*) 650 mg PO Q4H PRN PRN Reason: PAIN Last Admin: 09/27/18 13:41 Dose: 650 mg Albuterol/Ipratropium (Duoneb (Albuterol 2.5 Mg/Ipratropium 0.5 Mg)) 1 neb INH Q4H PRN PRN Reason: SOB/WHEEZING Alprazolam (Xanax Tab*) 0.25 mg PO BID PRN PRN Reason: ANXIETY Last Admin: 09/27/18 09:22 Dose: 0.25 mg Atorvastatin Calcium (Lipitor*) 20 mg PO DAILY [facility] Last Admin: 09/27/18 09:23 Dose: 20 mg Calcium Carbonate (Tums*) 500 mg PO BID PRN PRN Reason: HEARTBURN Carvedilol (Coreg Tab*) 25 mg PO BID [facility] Last Admin: 09/27/18 09:23 Dose: 25 mg Diltiazem HCl (Cardizem Cd Cap*) 180 mg PO DAILY [facility] Last Admin: 09/27/18 09:22 Dose: 180 mg Docusate Sodium (Colace Cap*) 100 mg PO BID PRN PRN Reason: CONSTIPATION Multivitamins/Minerals (Theragran/Minerals Tab*) 1 tab PO DAILY [facility] Last Admin: 09/27/18 09:22 Dose: 1 tab Nicotine (Nicotine Inhaler*) 10 mg INH Q2H PRN PRN Reason: CRAVINGS Potassium Chloride (Klor Con Er Tab*) 20 meq PO DAILY [facility] Last Admin: 09/27/18 09:22 Dose: 20 meq Quetiapine Fumarate (Seroquel Tab*) 200 mg PO BEDTIME [facility] Spironolactone (Aldactone Tab*) 50 mg PO DAILY [facility] Last Admin: 09/27/18 09:23 Dose: 50 mg Tiotropium [place] (Spiriva Cap.Inh*) 1 cap INH DAILY [facility] Last Admin: 09/27/18 08:55 Dose: 1 cap Tramadol HCl (Ultram*) 50 mg PO Q8HR PRN PRN Reason: PAIN Last Admin: 09/27/18 10:47 Dose: 50 mg Warfarin Sodium (Coumadin Tab(*)) 12 mg PO 1700 [facility]; Protocol Vital Signs - 8 hr 09/27/18 09/27/18 09/27/18 08:56 09:21 09:22 Temperature Pulse Rate 59 Respiratory 18 22 Rate Blood Pressure 97/57 (mmHg) O2 Sat by Pulse 99 Oximetry 09/27/18 09/27/18 09/27/18 10:47 10:59 11:04 Temperature 97.4 F Pulse Rate 87 Respiratory 16 20 Rate Blood Pressure 77/49 92/55 (mmHg) O2 Sat by Pulse 93 Oximetry 09/27/18 09/27/18 09/27/18 11:26 11:46 11:49 Temperature Pulse Rate 98 Respiratory 22 20 Rate Blood Pressure (mmHg) O2 Sat by Pulse 96 96 Oximetry 09/27/18 12:26 Temperature Pulse Rate Respiratory 20 Rate Blood Pressure (mmHg) O2 Sat by Pulse Oximetry Oxygen Devices in Use Now: Nasal Cannula - 3L Appearance: Morbidly obese black female, laying in hospital bed, appearing in NAD Eyes: No Scleral Icterus, PERRLA Ears/Nose/Mouth/Throat: Mucous Membranes Moist Neck: NL Appearance and Movements; NL JVP Respiratory: Symmetrical Chest Expansion and Respiratory Effort, Clear to Auscultation Cardiovascular: NL Sounds; No Murmurs; No JVD, RRR, - - Tenderness to palpation at sternum Abdominal: - - Abdomen is soft, nontender, nondistended Extremities: No Edema, No Clubbing, Cyanosis Skin: No Rash or Ulcers, - - Skin is warm, dry, intact Neurological: Alert and Oriented x 3, NL Muscle Strength and Tone Result Diagrams: 09/26/18 23:04 09/26/18 23:03 Assess/Plan/Problems-Billing Assessment: 63 yo female with PMHx COPD, HFrEF, hx of PE on AC, paroxysmal afib, CKD, and HTN presents with shortness of breath and cough. She uses 3L oxygen at home, she briefly required bipap in the ED but was titrated down to 4L NC at admission. - Patient Problems (1) Chest tightness Code(s): R07.89 - OTHER CHEST PAIN SNOMED Code(s): 19659329 Comment: -new complaint on evaluation today -likely musculoskeletal as reproducible on exam -EKG without evidence of ischemia -trending troponins -FRANCISCA score of 1; HEART score of 3 -pt requesting to see cattle sorter this afternoon, will contact cardiology in the morning (2) Acute exacerbation of CHF (congestive heart failure) Code(s): I50.9 - HEART FAILURE, UNSPECIFIED SNOMED Code(s): 42824153 Comment: -IV lasix 60 mg given today - will continue home spironolactone and torsemide -lungs clear on exam and pt's SOB resolved (3) Afib Code(s): I48.91 - UNSPECIFIED ATRIAL FIBRILLATION SNOMED Code(s): 69756354 Comment: -patient in Afib on ekg at admission and today; pt is asymptomatic -INR subtherapeutic, will give 2mg additional warfarin -continue carvedilol and diltiazem (4) Chronic kidney disease Code(s): N18.9 - CHRONIC KIDNEY DISEASE, UNSPECIFIED SNOMED Code(s): 863260921 Comment: -Cr 1.61, at baseline (5) Hyperlipidemia Code(s): E78.5 - HYPERLIPIDEMIA, UNSPECIFIED SNOMED Code(s): 66852931 Comment: -Continue atorvastatin (6) Hypertension Onset Date: 01/29/14 Code(s): I10 - ESSENTIAL (PRIMARY) HYPERTENSION SNOMED Code(s): 58899528 Comment: -BP stable -Continue torsemide, spironolactone, carvedilol, diltiazem (7) FRANCIS (obstructive sleep apnea) Code(s): G47.33 - OBSTRUCTIVE SLEEP APNEA (ADULT) (PEDIATRIC) SNOMED Code(s): 35068423 Comment: - Continue CPAP (8) DVT prophylaxis Code(s): CPH5464 - SNOMED Code(s): 482140904 Comment: -Pt on warfarin, though is subtherapeutic; one dose of subQ heparin today and will reassess INR tomorrow (9) Full code status Code(s): Z78.9 - OTHER SPECIFIED HEALTH STATUS SNOMED Code(s): 204768742 Comment:
[2018-09-27] MEDS ORDERED: Warfarin TAB(*) 10 MG PO SCH (17:00)
[2018-09-27] MEDS ORDERED: Warfarin TAB(*) 6 MG PO SCH (17:00)
[2018-09-27] MEDS: Torsemide TAB 10 MG PO SCH (20:40)
[2018-09-27] MEDS: Heparin VIAL(*) 5000 UNITS/ML VIAL (FIVE THOUSAND) SUBCUT SCH (20:55)
[2018-09-27] MEDS ORDERED: QUEtiapine TAB* 100 MG PO SCH (21:00)
[2018-09-28] MEDS: Heparin VIAL(*) 5000 UNITS/ML VIAL (FIVE THOUSAND) SUBCUT SCH ×2 (05:18→13:22)
[2018-09-28 07:22] LABS: ABS Basophils 0.1 10^3/ul (0-0.2); ABS Eosinophils 0.1 10^3/ul (0-0.6); ABS Lymphocytes 1.5 10^3/ul (1.0-4.8); ABS Monocytes 0.5 10^3/ul (0-0.8); ABS Neutrophils 4.7 10^3/ul (1.5-7.7); ABS Nucleated RBC 0 10^3/ul; Eosinophil % 1.7 %; Hematocrit 35 % (33-41); Hemoglobin 11.2 g/dL (12.0-16.0); INR 1.81 (0.77-1.02); Lymphocyte % 22.4 %; Mean Corpuscular HGB Conc 32 g/dL (31-36); Mean Corpuscular Hemoglobin 25 pg (27-31); Mean Corpuscular Volume 78 fL (80-97); Mean Platelet Volume 10.1 fL (7.4-10.4); Nucleated Red Blood Cells % 0.2; Platelet Count 190 10^3/uL (150-450); Red Blood Count 4.47 10^6 /uL (3.70-4.87); Red Cell Distribution Width 15 % (10.5-15); White Blood Count 6.9 10^3/uL (3.5-10.8)
[2018-09-28 07:37] LABS: BUN/Creatinine Ratio 30.5 (8-20); EGFR African American 32.9 (>60); EGFR Non-African American 27.2 (>60); Potassium 4.3 mmol/L (3.5-5.0)
[2018-09-28] MEDS: Tiotropium CAP.INH* CAP.INH/18 MCG (USE ORDER SET !) INH SCH (08:40)
[2018-09-28] MEDS: Torsemide TAB 10 MG PO SCH (09:31)
[2018-09-28] MEDS: Atorvastatin* 20 MG TAB PO SCH (09:31)
[2018-09-28] MEDS: Carvedilol TAB* 25 MG PO SCH (09:31)
[2018-09-28] MEDS: Potassium Chlor TAB* 20 MEQ TAB.ER PO SCH (09:31)
[2018-09-28] MEDS: Multivitamins/Minerals TAB PO SCH (09:31)
[2018-09-28] MEDS: Diltiazem CD CAP* 180 MG PO SCH (09:31)
[2018-09-28] MEDS: Spironolactone TAB* 25 MG PO SCH (09:32)
[2018-09-28] MEDS: ALPRAZolam TAB* 0.25 MG PO PRN (12:13)
[2018-09-28 13:10] VITALS: BP 102/53
--- NOTE | 2018-09-29 00:20 | DS ---
Amended report to attach addendum to report. CC: Dr. Blake Stuart * DISCHARGE SUMMARY: DATE OF ADMISSION: 09/27/18 DATE OF DISCHARGE: 09/28/18 PRIMARY CARE PHYSICIAN: Blake Stuart MD ATTENDING PHYSICIAN: Ita Mcdaniel MD * (dictated by AYLA Marr) PRIMARY DIAGNOSES: 1. Exacerbation of HFrEF 2. Chest pain, noncardiac SECONDARY DIAGNOSES: 1. Heart failure, reduced ejection fraction 35-40% 2. COPD on home oxygen prn to 2L 3. Hypertension 4. Hyperlipidemia 5. FRANCIS, on CPAP 6. Atrial Fibrillation, on warfarin 7. CKD 8. Anxiety 9. Tobacco use 10. Hx of pulmonary embolism in 2018, on AC 11. Morbid obesity DISCHARGE MEDICATIONS: 1. Warfarin 2 mg p.o. daily x7 days (this is to be used in addition to her 10 mg of warfarin at home until followup for her INR). 2. Nicotine inhaler 10 mg inhaled q.2 hours p.r.n. Continued home medications: 1. Warfarin 10 mg p.o. daily. 2. Colace 100 mg p.o. b.i.d. p.r.n. 3. Lipitor 20 mg p.o. daily. 4. Albuterol inhaler 2 puffs inhaled q.6 hours p.r.n. 5. Acetaminophen 650 mg p.o. q.4 hours p.r.n. pain. 6. Xanax 0.25 mg p.o. b.i.d. p.r.n. anxiety. 7. Coreg 25 mg p.o. b.i.d. 8. Calcium carbonate 500 mg p.o. b.i.d. p.r.n. acid reflux. 9. Torsemide 40 mg p.o. b.i.d. 10. Spiriva 1 cap inhaled daily. 11. Spironolactone 50 mg p.o. daily. 12. Seroquel 200 mg p.o. at bedtime. 13. Potassium chloride 20 mEq p.o. daily. 14. Multivitamin 1 tab p.o. daily. 15. Trazodone 50 to 150 mg p.o. at bedtime. 16. Tramadol 50 mg p.o. q.8 hours p.r.n. 17. Diltiazem 180 mg p.o. daily. STUDIES: EKG on 09/26/18, atrial fibrillation, rate 87 beats per minute, no ST changes or T wave changes. EKG on 09/27/18, unchanged from prior EKG, atrial fibrillation, no ST changes, no T wave inversions, normal axis. Chest x-ray on 09/26/18, impression, "cardiomegaly with pulmonary interstitial edema." PERTINENT LABORATORY DATA: INR of 1.3 on 09/26/18 and INR of 1.81 on 09/28/18. Creatinine of 1.61 on , creatinine of 1.87 on 09/28/18, BUN of 127 on 09/26/18. White blood cell count of 8.9 on 09/28/18. HISTORY OF PRESENT ILLNESS/HOSPITAL COURSE: Adrianna Robledo is a 63-year-old black female with past medical history significant for COPD, on oxygen at home; CHF with reduced ejection fraction, hypertension, FRANCIS, on CPAP at home; paroxysmal atrial fibrillation, on anticoagulation; and CKD, who presented to the emergency department complaining of shortness of breath and cough. She was having increased shortness of breath with exertion and wanted to be ruled out for pneumonia. Her chest x-ray showed bilateral interstitial pulmonary edema and she was given 40 mg of IV Lasix in the emergency department. Early in the morning on 09/27/18, she was admitted to the hospital and prescribed 60 mg of IV Lasix the following morning. After receiving this medication, she was evaluated and stated that her shortness of breath was feeling better. However, she was complaining of chest tightness and as well as neck pain. This chest pain was reproducible on palpation to the sternum. Her EKG was without ischemic changes and her troponins were negative x3. She was treated with tylenol, home tramadol, and home xanax, though this did not improve her chest pain. The following morning, she was without chest pain, without shortness of breath and agreeable to discharge. She was feeling better other than her continued neck pain. On day of discharge, she denies chest pain, shortness of breath, abdominal pain , nausea, vomiting and reports neck pain as described above. The patient denies palpitations and tachycardia. During the patient's hospital stay, her INR was subtherapeutic and her home dose of warfarin was 10 mg. Therefore, an additional 2 mg of warfarin was given each day of her stay. For treatment of her atrial fibrillation, her warfarin was continued as just mentioned. Her diltiazem was continued and her carvedilol were continued. For control of her obstructive sleep apnea, her CPAP was continued at night. For her COPD, her Spiriva and p.r.n. inhaler were continued. For hyperlipidemia, her home Lipitor was continued in addition to the IV diuretics that she received on the morning of her first day of her stay. She was then continued on b.i.d. home torsemide, home carvedilol, potassium chloride, spironolactone. REVIEW OF SYSTEMS: All pertinent positives and negatives are as above and all other systems are negative. PHYSICAL EXAM: Obese, black female, lying in hospital bed, appearing comfortable and in no acute distress. Head: Normocephalic, atraumatic. Eyes: Sclerae anicteric. PERRL. ENT: Mucous membranes are moist. Neck: Supple without lymphadenopathy, without JVD. Range of motion is within normal limits. Chest: No chest pain to palpation. Rhythm is irregular consistent with atrial fibrillation and rate is regular. Lungs: Lungs are clear to auscultation bilaterally. Chest expansion is symmetrical with respirations. Abdomen: Abdomen is obese, soft, nontender, nondistended. Extremities: Negative edema and clubbing, calf tenderness. Neuro: Alert and oriented x3. No focal deficits. Psych: The patient is cooperative and pleasant. Skin: Skin is warm, dry, and intact. No rashes or ecchymosis. DISCHARGE PLAN: Diet: The patient is recommended to follow a heart healthy and low sodium diet. Activity: The patient is to return to her normal activity as tolerated. The patient is recommended to follow up with Dr. Jc's office as soon as possible regarding her subtherapeutic INR. She was prescribed a 1-week supply of 2 mg of warfarin to continue taking in addition to her home 10 mg of warfarin. In the case that she is unable to be seen by Dr. Jc's office, she is advised to follow up with her PCP regarding this admission within 1 week as well as recheck of INR. Regarding her neck pain and her chest pain, this is likely musculoskeletal and related to exerting herself with her shortness of breath prior to arrival. She was advised to use moist heat and to continue Tylenol up to 4 g per day. Regarding treatment of her CHF, she is to continue her home doses of torsemide, carvedilol, spironolactone, and potassium chloride supplement. For treatment of her atrial fibrillation, she is to continue her diltiazem and Coreg and her warfarin management is as discussed. For treatment of her COPD, it was discussed that smoking cessation is suggested and she was prescribed nicotine inhaler. In addition, she is to continue her Spiriva and p.r.n. Ventolin inhaler. For treatment of her FRANCIS, she is to continue nightly CPAP. CONDITION ON DISCHARGE: Stable. TIME SPENT: Approximately 45 minutes was spent on this discharge, approximately half of this time was spent at bedside. AYLA MARR ADDENDUM TO DISCHARGE SUMMARY: DISCHARGE DISPOSITION: Home. AYLA MARR [id number]/[facility] #: [id number]/[facility] #: [id number] FLOY[place]
--- NOTE | 2018-10-04 11:23 | DS ---
DISCHARGE SUMMARY: ADDENDUM: DISCHARGE DISPOSITION: Home. AYLA WELLS [id number]/[facility] #: [id number]
== END 2018-09-28 14:45 | disposition home or self-care (01) ==
LOC: ED 19:54 → MEDTELE 09-27 04:05
PROVIDERS: ADMIT Internal Medicine; ATTEND Internal Medicine
DX: J44.9 Chronic obstructive pulmonary disease, unspecified (principal); I50.9 Heart failure, unspecified; G47.33 Obstructive sleep apnea (adult) (pediatric); I48.0 Paroxysmal atrial fibrillation; Z79.01 Long term (current) use of anticoagulants; I12.9 Hypertensive chronic kidney disease with stage 1 through stage 4 chronic kidney disease, or unspecified chronic kidney disease; N18.9 Chronic kidney disease, unspecified; R06.02 Shortness of breath; R07.9 Chest pain, unspecified; R42 Dizziness and giddiness; Z88.6 Allergy status to analgesic agent; Z87.891 Personal history of nicotine dependence; E78.5 Hyperlipidemia, unspecified
CPT/HCPCS: 36415; 71045; 80048; 80053; 83880; 84484; 85025; 85610; 85730; 86140; 93005; 94640; 94660; 96372; 96374; 96375; 99284; A9270-GY; G0378; J1644; J1940

== ENCOUNTER 2019-04-30 17:31 | Emergency (ER) | payer MEDICARE, OTHER ==
--- NOTE | 2019-04-30 18:08 | ED ---
Shortness of Breath - HPI Summary HPI Summary: Complains of shortness of breath, yellow nasal discharge and being unable to breathe through her nose 3 weeks, increasing bilateral pedal edema and ankle pain with walking, and increased use of PRN home O2 2 days. Denies STERLING, cough, sore throat, CP, N/V/V/D, abdominal pain, change in urine, change in BM. Medical history is A. fib, COPD, CHF, PE, anemia, CKD, HDL. Anticoagulated on Coumadin. Taking diltiazem. Taking spirinolactone 50mg daily, and bumetanide 2mg BID for diuresis. - History of Current Complaint Chief Complaint: EDUpperRespComplaint Time Seen by Provider: 04/30/19 17:48 Hx Obtained From: Patient Onset/Duration: Gradual Onset, Lasting Days Current Severity: Mild Dyspnea At: Exertion Aggravating Factors: Movement Alleviating Factors: Oxygen Associated Signs & Symptoms: Nasal Congestion - Allergy/Home Medications Allergies/Adverse Reactions: Allergies Allergy/AdvReac Type Severity Reaction Status Date / Time aspirin Allergy Difficulty Verified 04/30/19 17:36 Breathing PMH/Surg Hx/FS Hx/Imm Hx Endocrine/Hematology History: Denies: Hx Diabetes Cardiovascular History: Reports: Hx Angina, Hx Atrial Fibrillation, Hx Auto Implanted Cardiovert Defib, Hx Congestive Heart Failure, Hx Embolism - Pulmonary embolism June of 2017, Hx Hypertension, Other Cardiovascular Problems/Disorders - chronic afib Respiratory History: Reports: Hx Chronic Obstructive Pulmonary Disease (COPD) - Yes: pt reports 3-4L O2 at all times at home, CPAP at night, Hx Pulmonary Embolism, Hx Sleep Apnea - CPAP at night , Other Respiratory Problems/Disorders - ON 02 AT NIGHT, FRANCIS uses CPAP Denies: Hx Asthma History: Reports: Hx Chronic Renal Failure, Hx Renal Disease Musculoskeletal History: Reports: Hx Orthopedic Injury Sensory History: Reports: Hx Contacts or Glasses - reading glasses Denies: Hx Deafness, Hx Hearing Aid Opthamlomology History: Reports: Hx Contacts or Glasses - reading glasses Psychiatric History: Reports: Hx Anxiety, Hx Depression - Cancer History Cancer Type, Location and Year: mantle cell lymphoma/12/23 - Surgical History Surgery Procedure, Year, and Place: hernia repair/orif right ankle,. fallopian tube surgery for ectopic - Immunization History Date of Tetanus Vaccine: utd Date of Influenza Vaccine: 02/2018 Infectious Disease History: No Infectious Disease History: Denies: Hx of Known/Suspected MRSA, Traveled Outside the [place] in Last 30 Days - Family History Known Family History: Positive: Diabetes - father, Other - Father - Lung cancer Negative: Cardiac Disease, Hypertension - Social History Alcohol Use: Rare Alcohol Amount: monthly Hx Substance Use: No Substance Use Type: Reports: None Hx Tobacco Use: Yes Smoking Status (MU): Former Smoker Type: Cigarettes Amount Used/How Often: 1/2 ppd Length of Time of Smoking/Using Tobacco: 39 years Have You Smoked in the Last Year: Yes Review of Systems Constitutional: Negative Eyes: Negative Positive: Nasal Discharge Cardiovascular: Negative Positive: Shortness Of Breath Gastrointestinal: Negative Genitourinary: Negative Musculoskeletal: Negative Skin: Negative Neurological: Negative Psychological: Normal All Other Systems Reviewed And Are Negative: Yes Physical Exam - Summary Physical Exam Summary: Mild pedal edema bilaterally. Abdomen soft nontender. Irregular rate and rhythm. Lung sounds clear to auscultation bilaterally. Triage Information Reviewed: Yes Vital Signs On Initial Exam: Initial Vitals Temp Pulse Resp BP Pulse Ox 98.6 F 108 19 136/103 94 04/30/19 17:33 04/30/19 17:33 04/30/19 17:33 04/30/19 17:33 04/30/19 17:33 Vital Signs Reviewed: Yes Appearance: Positive: Well-Appearing Skin: Positive: Warm Head/Face: Positive: Normal Head/Face Inspection Eyes: Positive: Normal Neck: Positive: Supple Respiratory/Lung Sounds: Positive: Clear to Auscultation Cardiovascular: Positive: Normal Abdomen Description: Positive: Nontender Musculoskeletal: Positive: Normal Neurological: Positive: Normal Psychiatric: Positive: Normal AVPU Assessment: Alert - Lachelle Coma Scale Best Eye Response: 4 - Spontaneous Best Motor Response: 6 - Obeys Commands Best Verbal Response: 5 - Oriented Coma Scale Total: 15 Procedures - Sedation Patient Received Moderate/Deep Sedation with Procedure: No Diagnostics - Vital Signs Vital Signs Temp Pulse Resp BP Pulse Ox 04/30/19 17:33 98.6 F 108 19 136/103 94 - Laboratory Result Diagrams: 04/30/19 18:13 04/30/19 18:13 Lab Statement: Any lab studies that have been ordered have been reviewed, and results considered in the medical decision making process. Course/Dx - Course Course Of Treatment: Complains of shortness of breath, yellow nasal discharge and being unable to breathe through her nose 3 weeks, increasing bilateral pedal edema and ankle pain with walking, and increased use of PRN home O2 2 days. Denies STERLING, cough, sore throat, CP, N/V/V/D, abdominal pain, change in urine, change in BM. Medical history is A. fib, COPD, CHF, PE, anemia, CKD, HDL. Anticoagulated on Coumadin. Taking diltiazem. Taking spirinolactone 50mg daily, and bumetanide 2mg BID for diuresis. Patient presents on home O2 at 3 L with normal vital signs. Hgb 10.6 which is patient's baseline. Creatinine 1.18 which is better than patient baseline. BNP 507 which is moderately elevated from patient baseline. Labs otherwise unremarkable. EKG is A. fib with a controlled rate of 103. History of same. Patient is anticoagulated, taking diltiazem. Chest x-ray positive for mild pulmonary edema. Discussed patient and findings with attending Dr. Faulkner who agreed patient could be discharged to follow-up with primary care. Rx for cefdinir for sinusitis. - Diagnoses Provider Diagnoses: Sinusitis, Fluid retention in legs Discharge ED - Sign-Out/Discharge Documenting (check all that apply): Patient Departure - Discharge Plan Condition: Stable Disposition: HOME Prescriptions: Cefdinir [Cefdinir 300 MG CAP] 300 mg PO BID 10 Days #20 capsule Patient Education Materials: Sinusitis (ED), Leg Edema (ED) Referrals: Blake Stuart MD [Primary Care Provider] - Additional Instructions: Continued wear home oxygen as necessary. Take an extra bumetanide 2 mg tablet tomorrow morning when you take your normal morning dose of bumetanide. Take antibiotic Cefdinir twice a day as directed for sinusitis. Take Tylenol for fever. Call your primary care Dr Stuart tomorrow morning for further evaluation of body fluid retention. Return to the ED for any new or worsening symptoms. - Billing Disposition and Condition Condition: STABLE Disposition: Home
[2019-04-30 18:41] LABS: Albumin 3.7 g/dL (3.2-5.2); Albumin/Globulin Ratio 1.1 (1-3); BUN/Creatinine Ratio 19.5 (8-20); Calcium 9.7 mg/dL (8.6-10.3); EGFR Non-African American 46.3 (>60); Globulin 3.4 g/dL (2-4); Potassium 3.8 mmol/L (3.5-5.0); Total Bilirubin 0.5 mg/dL (0.2-1.0); Total Protein 7.1 g/dL (6.4-8.9)
[2019-04-30 18:42] LABS: Troponin I 0.01 ng/mL (<0.04)
[2019-04-30 18:51] LABS: Hematocrit 33 % (35-47); Hemoglobin 10.6 g/dL (12.0-16.0); Mean Corpuscular HGB Conc 33 g/dL (31-36); Mean Corpuscular Hemoglobin 26 pg (27-31); Mean Corpuscular Volume 81 fL (80-97); Mean Platelet Volume 8.9 fL (7.4-10.4); Platelet Count 176 10^3/uL (150-450); Red Blood Count 4.03 10^6 /uL (3.70-4.87); Red Cell Distribution Width 19 % (10-15); White Blood Count 6.5 10^3/uL (3.5-10.8)
[2019-04-30 18:55] LABS: Polychromasia 2+
[2019-04-30 18:56] LABS: ABS Lymphocytes 2.3 10^3/ul (1.0-4.8); ABS Monocytes 0.5 10^3/ul (0-0.8); ABS Neutrophils 3.7 10^3/ul (1.5-7.7); Eosinophil % 0.1 %; Nucleated Red Blood Cells % 0.5
[2019-04-30] MEDS ORDERED: Cefdinir cap* 300 MG CAP PO ONE (20:09)
[2019-04-30 20:32] VITALS: BP 124/90
--- NOTE | 2019-05-01 10:32 | ED ---
Imaging and Labs Follow Up Follow Up Type: Imaging Imaging Result: IMPRESSION: 1. Hypoinflated lungs with mild bibasilar airspace opacification which is often reflective of atelectasis. Infiltrate could have similar appearance. 2. Mild pulmonary edema is likely. R2 Preliminary Imaging Read R2 Patient Communication/Plan: Pt. seen for sinus congestion and SOB. Hx of CHF. Pt. was treated with cefdinir. No change in treatment at this time. Provider Diagnoses: Sinusitis, Fluid retention in legs
== END 2019-04-30 20:22 | disposition home or self-care (01) ==
LOC: ED 17:31
DX: J32.9 Chronic sinusitis, unspecified (principal); R60.0 Localized edema; I48.91 Unspecified atrial fibrillation; Z95.810 Presence of automatic (implantable) cardiac defibrillator; I13.0 Hypertensive heart and chronic kidney disease with heart failure and stage 1 through stage 4 chronic kidney disease, or unspecified chronic kidney disease; N18.9 Chronic kidney disease, unspecified; I50.9 Heart failure, unspecified; Z86.711 Personal history of pulmonary embolism; J44.9 Chronic obstructive pulmonary disease, unspecified; Z87.891 Personal history of nicotine dependence
CPT/HCPCS: 36415; 71046; 80053; 83880; 84484; 85025; 86140; 93005; 99283; A9270-GY

== ENCOUNTER 2019-06-06 12:20 | Emergency (ER) | payer OTHER, MEDICARE ==
[2019-06-06] MEDS ORDERED: Ibuprofen TAB* 600 MG PO ONE (13:41)
--- NOTE | 2019-06-06 14:04 | ED ---
Lower Extremity - HPI Summary HPI Summary: This patient is a 63-year-old female who presents to the ED with left ankle and foot pain. Patient states she fractured this ankle both the tibia and fibula several years ago and 2 mos ago states the area swelled up and became painful spontaneously. Patient denies any specific injury. Denies any recent trauma. Patient endorses pain to the dorsum of the foot, heel of the foot as well as the bilateral ankle along with swelling. Patient continues to be able to ambulate, however with pain. History of lymphoma. Continues to see Dr. Jc. Admits to ambulating on the extremity more frequently d/t the holidays and cooking. Uses her wheelchair often to get around. Has not used medications, ice, or elevation. She states he had some PT for this many years ago, but stopped. - History of Current Complaint Chief Complaint: EDExtremityLower Stated Complaint: LEFT ANKLE PAIN-UNABLE TO WALK PER PT Time Seen by Provider: 06/06/19 12:37 Hx Obtained From: Patient Mechanism Of Injury: Other - none Onset of Pain: Days Onset/Duration: Days Severity Initially: Moderate Severity Currently: Moderate Pain Intensity: 8 Pain Scale Used: 0-10 Numeric Timing: Constant Location: Is Discrete @ - left ankle - bilateral - foot, heel and dorsum Character Of Pain: Aching Associated Signs And Symptoms: Positive: Swelling. Negative: Redness, Bruising , Weakness Aggravating Factor(s): Standing, Ambulation Alleviating Factor(s): Rest, Elevation Able to Bear Weight: Yes - Allergies/Home Medications Allergies/Adverse Reactions: Allergies Allergy/AdvReac Type Severity Reaction Status Date / Time aspirin Allergy Difficulty Verified 06/06/19 12:30 Breathing PMH/Surg Hx/FS Hx/Imm Hx Previously Healthy: Yes Endocrine/Hematology History: Denies: Hx Diabetes Cardiovascular History: Reports: Hx Angina, Hx Atrial Fibrillation, Hx Auto Implanted Cardiovert Defib, Hx Congestive Heart Failure, Hx Embolism - Pulmonary embolism June of 2017, Hx Hypertension, Other Cardiovascular Problems/Disorders - chronic afib Respiratory History: Reports: Hx Chronic Obstructive Pulmonary Disease (COPD) - Yes: pt reports 3-4L O2 at all times at home, CPAP at night, Hx Pulmonary Embolism, Hx Sleep Apnea - CPAP at night , Other Respiratory Problems/Disorders - ON 02 AT NIGHT, FRANCIS uses CPAP Denies: Hx Asthma History: Reports: Hx Chronic Renal Failure, Hx Renal Disease Musculoskeletal History: Reports: Hx Orthopedic Injury Sensory History: Reports: Hx Contacts or Glasses - reading glasses Denies: Hx Deafness, Hx Hearing Aid Opthamlomology History: Reports: Hx Contacts or Glasses - reading glasses Psychiatric History: Reports: Hx Anxiety, Hx Depression - Cancer History Cancer Type, Location and Year: mantle cell lymphoma/12/23 - Surgical History Surgery Procedure, Year, and Place: hernia repair/orif right ankle,. fallopian tube surgery for ectopic - Immunization History Date of Tetanus Vaccine: utd Date of Influenza Vaccine: 02/2018 Hx Pertussis Vaccination: No Immunizations Up to Date: Yes Infectious Disease History: No Infectious Disease History: Denies: Hx of Known/Suspected MRSA, Traveled Outside the [place] in Last 30 Days - Family History Known Family History: Positive: Diabetes - father, Other - Father - Lung cancer Negative: Cardiac Disease, Hypertension - Social History Occupation: Unemployed Lives: With Family Alcohol Use: Rare Alcohol Amount: monthly Hx Substance Use: No Substance Use Type: Reports: None Hx Tobacco Use: Yes Smoking Status (MU): Light Every Day Tobacco Smoker Type: Cigarettes Amount Used/How Often: 1/2 ppd Length of Time of Smoking/Using Tobacco: 39 years Have You Smoked in the Last Year: Yes Review of Systems Negative: Fever, Chills, Fatigue, Skin Diaphoresis Negative: Palpitations, Chest Pain Negative: Abdominal Pain, Vomiting Genitourinary: Negative Positive: no symptoms reported, see HPI Positive: Arthralgia - left ankle - bilateral - foot, heel and dorsum. Negative : Myalgia Positive: Other - swelling. Negative: Rash, Bruising Neurological: Negative All Other Systems Reviewed And Are Negative: Yes Physical Exam Triage Information Reviewed: Yes Vital Signs On Initial Exam: Initial Vitals Temp Pulse Resp BP Pulse Ox 98.6 F 101 16 92/40 96 06/06/19 12:27 06/06/19 12:27 06/06/19 12:27 06/06/19 12:27 06/06/19 12:27 Vital Signs Reviewed: Yes Appearance: Positive: Well-Appearing, Well-Nourished Skin: Positive: Warm, Skin Color Reflects Adequate Perfusion Head/Face: Positive: Normal Head/Face Inspection Eyes: Positive: EOMI, CRISTINE, Conjunctiva Clear Neck: Positive: Supple, Nontender, No Lymphadenopathy Respiratory/Lung Sounds: Positive: Clear to Auscultation, Breath Sounds Present Cardiovascular: Positive: RRR, Pulses are Symmetrical in both Upper and Lower Extremities Musculoskeletal: Positive: Normal, Strength/ROM Intact Neurological: Positive: Sensory/Motor Intact, Alert, Oriented to Person Place, Time Psychiatric: Positive: Affect/Mood Appropriate AVPU Assessment: Alert Procedures - Sedation Patient Received Moderate/Deep Sedation with Procedure: No Diagnostics - Vital Signs Vital Signs Temp Pulse Resp BP Pulse Ox 06/06/19 12:48 99.7 F 94 28 92/77 92 06/06/19 12:27 98.6 F 101 16 92/40 96 - Laboratory Lab Statement: Any lab studies that have been ordered have been reviewed, and results considered in the medical decision making process. Lower Extremity Course/Dx - Course Course Of Treatment: Slight swelling to the bilateral ankle sides. Pulses +2 intact bilaterally to the pedal and posterior tibial. No pain to the calf or behind the knee. Xray obtained which has evidence of osteoarthritis as well as previous fracture. Patient will follow-up with orthopedics. Ezra wrapped the ankle. Patient ambulatory. Ibuprofen 600 mg given in ED. - Diagnoses Differential Diagnosis/HQI/PQRI: Positive: Fracture (Closed), Sprain, Strain Provider Diagnoses: Tendonitis Discharge ED - Sign-Out/Discharge Documenting (check all that apply): Patient Departure - Discharge Plan Condition: Stable Disposition: HOME Patient Education Materials: Tendinitis (ED) Referrals: Nicho Kim MD [Medical Doctor] - Hill Jc MD [Primary Care Provider] - Additional Instructions: Please follow up with orthopedics Keep the area wrapped to help with swelling Ibuprofen 600mg three times daily Ice and elevate the extremity as much as possible to help with swelling - Billing Disposition and Condition Condition: STABLE Disposition: Home - Attestation Statements Provider Attestation: I was available for consultation for this patient. I did not evaluate the patient or participate in any medical decision making or disposition decisions unless I am specifically named in the chart as having consulted on the patient. If I have consulted on the patient, please see my own ED note on the patient encounter. Yoel Reyes MD
[2019-06-06 14:11] VITALS: BP 110/68
== END 2019-06-06 14:10 | disposition home or self-care (01) ==
LOC: ED 12:20
DX: M77.52 Other enthesopathy of left foot and ankle (principal); I48.20 Chronic atrial fibrillation, unspecified; I13.0 Hypertensive heart and chronic kidney disease with heart failure and stage 1 through stage 4 chronic kidney disease, or unspecified chronic kidney disease; N18.9 Chronic kidney disease, unspecified; I50.9 Heart failure, unspecified; J44.9 Chronic obstructive pulmonary disease, unspecified; F41.9 Anxiety disorder, unspecified; F32.9 Major depressive disorder, single episode, unspecified; F17.210 Nicotine dependence, cigarettes, uncomplicated; Z95.810 Presence of automatic (implantable) cardiac defibrillator; Z99.81 Dependence on supplemental oxygen; Z85.72 Personal history of non-Hodgkin lymphomas; Z88.8 Allergy status to other drugs, medicaments and biological substances
CPT/HCPCS: 99282; A9270-GY

== ENCOUNTER 2019-06-09 16:26 | Inpatient (IN) | payer OTHER, MEDICARE ==
[2019-06-09] MEDS ORDERED: Ondansetron INJ* 2 MG/ML VIAL IV PRN (16:45)
[2019-06-09] MEDS: methylPREDNISolone SOD 40 MG* 1 ML VIAL IV SCH (18:45)
[2019-06-09] MEDS: NS 0.9% 1000 ML** 1,000 ML IV SCH ×2 (18:45→21:12)
[2019-06-09] MEDS ORDERED: NS 0.9% 1000 ML** 1,000 ML IV ONE (20:15)
[2019-06-09] MEDS: Acetaminophen TAB* 325 MG PO PRN (20:17)
[2019-06-09] MEDS: Gabapentin CAP(*) 300 MG PO SCH (20:17)
[2019-06-10] MEDS: Acetaminophen TAB* 325 MG PO PRN ×3 (06:00→18:51)
[2019-06-10 06:27] LABS: Hematocrit 29 % (35-47); Mean Corpuscular HGB Conc 32 g/dL (31-36); Mean Corpuscular Hemoglobin 26 pg (27-31); Mean Corpuscular Volume 83 fL (80-97); Mean Platelet Volume 9.9 fL (7.4-10.4); Platelet Count 150 10^3/uL (150-450); Red Blood Count 3.45 10^6 /uL (3.70-4.87); Red Cell Distribution Width 18 % (10-15); White Blood Count 5.4 10^3/uL (3.5-10.8)
[2019-06-10 06:28] LABS: Albumin 3.3 g/dL (3.2-5.2); Albumin/Globulin Ratio 0.9 (1-3); BUN/Creatinine Ratio 19.4 (8-20); Calcium 8.9 mg/dL (8.6-10.3); EGFR African American 33.1 (>60); EGFR Non-African American 27.4 (>60); Globulin 3.5 g/dL (2-4); Potassium 4.2 mmol/L (3.5-5.0); Total Bilirubin 0.3 mg/dL (0.2-1.0); Total Protein 6.8 g/dL (6.4-8.9)
[2019-06-10 06:47] LABS: ABS Lymphocytes 0.5 10^3/ul (1.0-4.8); ABS Monocytes 0.4 10^3/ul (0-0.8); ABS Neutrophils 4.4 10^3/ul (1.5-7.7); Nucleated Red Blood Cells % 0.1
[2019-06-10 06:48] LABS: Tear Drop Cells 1+
[2019-06-10] MEDS ORDERED: Dextrose 50% VIAL 50 ml IV PUSH PRN (07:32)
[2019-06-10] MEDS ORDERED: Albuterol HFA INHALER* 8 gm MDI INH PRN (07:37)
--- NOTE | 2019-06-10 07:44 | PN ---
Progress Note - Progress Note Date of Service: 06/10/19 SOAP: Subjective: still very sleepy, falls asleep during exam. reports continued foot pain. hypotensive and hypoxic over night. responded to increased O2 and fluid bolus. Was not on home CPAP last night. describes foot pain as bilateral bottom of her feet, mainly when she puts pressure on them, and associated with burning. Objective: Vital Signs Temp Pulse Resp BP Pulse Ox 97.4 F 71 18 97/80 99 06/10/19 03:15 06/10/19 03:15 06/10/19 04:41 06/10/19 03:15 06/10/19 03:15 morbidly obese F lying flat sleeping though arousable OP: dry, thrush perr eomi diffuse wheeze and rhonchi irr irr tachy obese nt +bs 1+ LE edema TTP over left ankle and heel though not markedly so no erythema sleepy, arousable and mostly appropriate globally nonfocal Laboratory Results - last 24 hr 06/09/19 06/10/19 06/10/19 20:08 05:55 05:55 WBC 5.4 RBC 3.45 L Hgb 9.0 L Hct 29 L MCV 83 MCH 26 L MCHC 32 RDW 18 H Plt Count 150 MPV 9.9 Neut % (Auto) 81.8 Lymph % (Auto) 10.0 [place] % (Auto) 7.3 Eos % (Auto) 0.0 Baso % (Auto) 0.9 Absolute Neuts (auto) 4.4 Absolute Lymphs (auto) 0.5 L Absolute Monos (auto) 0.4 Absolute Eos (auto) 0.0 Absolute Basos (auto) 0.0 Absolute Nucleated RBC 0.0 Nucleated RBC % 0.1 Hypochromasia 1+ Anisocytosis 1+ Target Cells 1+ Tear Drop Cells 1+ Sodium 136 Potassium 4.2 Chloride 102 Carbon Dioxide 27 Anion Gap 7 BUN 36 H Creatinine 1.86 H Est GFR ( Amer) 33.1 Est GFR (Non-Af Amer) 27.4 BUN/Creatinine Ratio 19.4 Glucose 119 H Lactic Acid 0.5 Calcium 8.9 Total Bilirubin 0.30 AST 8 L ALT 7 Alkaline Phosphatase 65 Total Protein 6.8 Albumin 3.3 Globulin 3.5 Albumin/Globulin Ratio 0.9 L Acetaminophen (Tylenol Tab*) 650 mg PO Q4H PRN PRN Reason: PAIN - MILD Last Admin: 06/10/19 06:00 Dose: 650 mg Albuterol (Ventolin Hfa Inhaler*) 1 puff INH Q4H PRN PRN Reason: SOB/WHEEZING Carvedilol (Coreg Tab*) 6.25 mg PO BID [facility] Dextrose (Dextrose 50% Vial 50 Ml*) 25 ml IV PUSH .FOR FS < 60 - SS PRN PRN Reason: FS < 60 Diltiazem HCl (Cardizem Tab*) 30 mg PO Q6HR LIYAH Gabapentin (Neurontin Cap(*)) 300 mg PO BID LIYAH Last Admin: 06/09/19 20:17 Dose: 300 mg Sodium Chloride (Ns 0.9% 1000 Ml) 1,000 mls @ 75 mls/hr IV PER RATE LIYAH Heparin Sodium/Dextrose (Heparin Drip 25,000 Units(*)) 25,000 units in 500 mls @ 0 mls/hr IV PER RATE [facility]YAH; Protocol Insulin Human Lispro (Humalog*) 0 units SUBCUT ACHS LIYAH; Protocol Methylprednisolone Sodium Succinate (Solu-Medrol 40 Mg) 60 mg IV DAILY [facility] Last Admin: 06/09/19 18:45 Dose: 60 mg Nystatin (Nystatin Top Powder*) 1 applic TOPICAL BID LIYAH Ondansetron HCl (Zofran Inj*) 4 mg IV Q4H PRN PRN Reason: NAUSEA/VOMITING Quetiapine Fumarate (Seroquel Tab*) 200 mg PO BEDTIME LIYAH Tiotropium [place] (Spiriva Respimat 2.5 Mcg) 2 puff INH DAILY [facility] Assessment: Complicated 63 yo morbidly obese female with systolic CHF, Afib, COPD, FRANCIS and mantle cell lymphoma recently restarted on therapy with rituxumab and revlimid, presenting with bilateral foot pain of unclear etiology and lethargy. It is unclear if the lethargy is related to excess tylenol PM usage, though now has not had any meds x 18 hours and is still very sleepy. Also wheezing and hypoxic so I question if there is a component of hypercapneic respiratory failure. Plan: COPD: -agree with solumedrol -start home spiriva and albuterol -stat ABG -assuming stable will resume home CPAP Afib w RVR: tachycardic overnight but off of all meds, presumably 2/2 hypotension -will start lower dose coreg and diltiazem (change to 30 q6 so easier to hold) as BP improved but still tenuous -stop xeralto with GFR <30, start heparin drip. will confirm on Wednesday with Dr. Jc why she was transitioned from coumadin to xeralto CHF: appears dry clinically so will continue to hold spironolactone today and hydrate , though will decrease rate to 75 cc/hr and if improved stop fluids tomorrow -decrease coreg for now and BP soft DM: reported history of diabetes but not on any meds -HbA1c pending -start insulin sliding scale and FS given steroids foot pain: bottom of feet bilaterally, unclear to me at this time the etiology though I agree that it does sound neuropathic -trial of gabapentin -avoid narcotics right now with sedation -doppler pending, though this does not sound like bilateral DVTs to me mantle cell lymphoma: -on revlimid/rituxan, this should be off week on revlimid (today is dy cycle) -start ASA (no clear contraindication) acute on chronic kidney failure: most certainly from poor PO intake and improving with hydration -dec IVFs to 75 cc/hr Thrush: -start nystatin swish and spit full code
[2019-06-10 07:58] LABS: Hematocrit 28 % (35-47); Hemoglobin 8.8 g/dL (12.0-16.0); Mean Corpuscular HGB Conc 32 g/dL (31-36); Mean Corpuscular Hemoglobin 26 pg (27-31); Mean Corpuscular Volume 83 fL (80-97); Mean Platelet Volume 10.1 fL (7.4-10.4); Platelet Count 158 10^3/uL (150-450); Red Blood Count 3.35 10^6 /uL (3.70-4.87); Red Cell Distribution Width 18 % (10-15); White Blood Count 5.1 10^3/uL (3.5-10.8)
[2019-06-10 08:19] LABS: EGFR African American 32.3 (>60); EGFR Non-African American 26.7 (>60)
[2019-06-10] MEDS: SPIRIVA Respimat* (tiotropium) 2.5 mcg/inh Inhaler INH SCH (09:09)
[2019-06-10] MEDS: Gabapentin CAP(*) 300 MG PO SCH ×2 (09:30→20:33)
[2019-06-10] MEDS: NS 0.9% 1000 ML** 1,000 ML IV SCH ×2 (09:31→23:28)
[2019-06-10] MEDS: methylPREDNISolone SOD 40 MG* 1 ML VIAL IV SCH (09:32)
[2019-06-10] MEDS: Heparin DRIP 25,000 UNITS(*) 25,000 UNITS/500 ML BAG IV SCH (09:41)
[2019-06-10] MEDS: Carvedilol TAB* 6.25 MG PO SCH ×2 (09:44→20:35)
[2019-06-10] MEDS: Nystatin TOP POWDER* 15 GM BTL TOPICAL SCH ×2 (09:44→20:46)
[2019-06-10] MEDS: Insulin LISPRO* 1 UNITS UNIT SUBCUT SCH ×3 (11:46→20:38)
[2019-06-10] MEDS: Diltiazem TAB* 30 MG PO SCH ×2 (11:50→17:08)
[2019-06-10] MEDS: QUEtiapine TAB* 100 MG PO SCH (20:33)
[2019-06-10] MEDS ORDERED: Heparin VIAL(*) 5000 UNITS/ML VIAL (FIVE THOUSAND) ONE (22:46)
[2019-06-11] MEDS: Diltiazem TAB* 30 MG PO SCH ×4 (00:28→17:40)
[2019-06-11] MEDS: Heparin DRIP 25,000 UNITS(*) 25,000 UNITS/500 ML BAG IV SCH ×2 (00:49→16:34)
[2019-06-11 04:47] LABS: Hematocrit 25 % (35-47); Hemoglobin 7.9 g/dL (12.0-16.0); Mean Corpuscular HGB Conc 32 g/dL (31-36); Mean Corpuscular Hemoglobin 26 pg (27-31); Mean Corpuscular Volume 82 fL (80-97); Mean Platelet Volume 9.3 fL (7.4-10.4); Platelet Count 155 10^3/uL (150-450); Red Blood Count 3.04 10^6 /uL (3.70-4.87); Red Cell Distribution Width 17 % (10-15); White Blood Count 4.8 10^3/uL (3.5-10.8)
[2019-06-11 05:01] LABS: Albumin 2.9 g/dL (3.2-5.2); BUN/Creatinine Ratio 28.3 (8-20); Calcium 8.6 mg/dL (8.6-10.3); EGFR African American 39.7 (>60); EGFR Non-African American 32.8 (>60); Potassium 4.1 mmol/L (3.5-5.0); Total Bilirubin 0.2 mg/dL (0.2-1.0); Total Protein 5.9 g/dL (6.4-8.9)
[2019-06-11 05:11] LABS: ABS Lymphocytes 0.7 10^3/ul (1.0-4.8); ABS Monocytes 0.5 10^3/ul (0-0.8); ABS Neutrophils 3.5 10^3/ul (1.5-7.7); Eosinophil % 0.1 %; Lymphocyte % 15.7 %; Nucleated Red Blood Cells % 0.2
[2019-06-11] MEDS: SPIRIVA Respimat* (tiotropium) 2.5 mcg/inh Inhaler INH SCH (08:08)
[2019-06-11] MEDS: Insulin LISPRO* 1 UNITS UNIT SUBCUT SCH ×4 (09:07→20:46)
[2019-06-11] MEDS: Nystatin TOP POWDER* 15 GM BTL TOPICAL SCH ×2 (09:09→20:46)
[2019-06-11] MEDS: Carvedilol TAB* 6.25 MG PO SCH ×2 (09:09→20:44)
[2019-06-11] MEDS: Gabapentin CAP(*) 300 MG PO SCH ×2 (09:09→20:45)
[2019-06-11] MEDS: methylPREDNISolone SOD 40 MG* 1 ML VIAL IV SCH (09:09)
[2019-06-11] MEDS ORDERED: Furosemide IV* 10 MG/ML VIAL (40 MG) IV ONE (14:41)
--- NOTE | 2019-06-11 14:44 | PN ---
Subjective Date of Service: 06/11/19 Interval History: Pt is now on 8 l 02, uses 3 l at home. Requirements increased in the past 24H since IVF restarted noted leg edema at home. Was on Bumex 2 mg daily at home Objective Active Medications: Acetaminophen (Tylenol Tab*) 650 mg PO Q4H PRN PRN Reason: PAIN - MILD Last Admin: 06/10/19 18:51 Dose: 650 mg Albuterol (Ventolin Hfa Inhaler*) 1 puff INH Q4H PRN PRN Reason: SOB/WHEEZING Albuterol/Ipratropium (Duoneb (Albuterol 2.5 Mg/Ipratropium 0.5 Mg)) 1 neb INH [id number] AWAKE [facility] Carvedilol (Coreg Tab*) 6.25 mg PO BID [facility] Last Admin: 06/11/19 09:09 Dose: 6.25 mg Dextrose (Dextrose 50% Vial 50 Ml*) 25 ml IV PUSH .FOR FS < 60 - SS PRN PRN Reason: FS < 60 Diltiazem HCl (Cardizem Tab*) 30 mg PO Q6HR [facility] Last Admin: 06/11/19 11:36 Dose: 30 mg Furosemide (Lasix Iv*) 40 mg IV ONCE ONE Stop: 06/11/19 14:42 Furosemide (Lasix Iv*) 40 mg IV 0800,1700 [facility] Gabapentin (Neurontin Cap(*)) 300 mg PO BID [facility] Last Admin: 06/11/19 09:09 Dose: 300 mg Heparin Sodium/Dextrose (Heparin Drip 25,000 Units(*)) 25,000 units in 500 mls @ 0 mls/hr IV PER RATE [facility]; Protocol Last Admin: 06/11/19 00:49 Dose: 40 mls/hr Insulin Human Lispro (Humalog*) 0 units SUBCUT ACHS [facility]; Protocol Last Admin: 06/11/19 11:36 Dose: 2 units Methylprednisolone Sodium Succinate (Solu-Medrol 40 Mg) 60 mg IV DAILY [facility] Last Admin: 06/11/19 09:09 Dose: 60 mg Nystatin (Nystatin Top Powder*) 1 applic TOPICAL BID [facility] Last Admin: 06/11/19 09:09 Dose: 1 applic Ondansetron HCl (Zofran Inj*) 4 mg IV Q4H PRN PRN Reason: NAUSEA/VOMITING Quetiapine Fumarate (Seroquel Tab*) 200 mg PO BEDTIME [facility] Last Admin: 06/10/19 20:33 Dose: 200 mg Tiotropium [place] (Spiriva Respimat 2.5 Mcg) 2 puff INH DAILY [facility] Last Admin: 06/11/19 08:08 Dose: 2 puff Vital Signs - 8 hr 06/11/19 06/11/19 06/11/19 07:36 08:00 08:14 Temperature 96.6 F Pulse Rate 82 98 Respiratory 20 18 16 Rate Blood Pressure 102/66 (mmHg) O2 Sat by Pulse 97 91 Oximetry 06/11/19 06/11/19 06/11/19 09:09 10:55 11:45 Temperature 97.3 F Pulse Rate 103 Respiratory 18 18 22 Rate Blood Pressure 117/77 (mmHg) O2 Sat by Pulse 100 Oximetry Oxygen Devices in Use Now: High Flow Nasal Cannula Appearance: 63 yo f in nAD, AAOx3 Eyes: No Scleral Icterus, PERRLA Ears/Nose/Mouth/Throat: NL Teeth, Lips, Gums, Mucous Membranes Moist Neck: NL Appearance and Movements; NL JVP Respiratory: Symmetrical Chest Expansion and Respiratory Effort, - - rales and wheezes b/l entire lungs Cardiovascular: - - irregular Abdominal: NL Sounds; No Tenderness; No Distention, No Hepatosplenomegaly Extremities: No Clubbing, Cyanosis, - - b/l LE's edema L>R Skin: No Nodules or Sclerosis Neurological: Alert and Oriented x 3, NL Muscle Strength and Tone Result Diagrams: 06/11/19 04:30 06/11/19 04:30 Assess/Plan/Problems-Billing Assessment: 63 yo morbidly obese female with systolic CHF, Afib, COPD, FRANCIS and mantle cell lymphoma recently restarted on therapy with rituxumab and revlimid, presenting with bilateral foot pain of unclear etiology and lethargy. It is unclear if the lethargy was related to excess tylenol PM usage. Uses 3 l 02 at home Plan: CHF: -today her hypoxemia appears to be related to CHF exacerbation -stop IVF, start IV Lasix -start checking daily weights and I/O's -h/o low EF, will get Echo COPD exacerbation: -cont solumedrol -cont home spiriva and albuterol -cont home CPAP Afib w RVR: -more controlled now on lower dose coreg and diltiazem (changed to 30 q6 so easier to hold on 06/10/19) as BP improved but still tenuous -stopped xarelto with GFR <30, started heparin drip (06/10/19). To be confirmed on Wednesday with Dr. Jc why she was transitioned from coumadin to xarelto DM: reported history of diabetes but not on any meds -HbA1c pending -cont insulin sliding scale and FS given steroids foot pain: -? neuropathic -trial of gabapentin -avoid narcotics right now with sedation -doppler pending mantle cell lymphoma: -on revlimid/rituxan, this should be off week on revlimid (today is dy cycle) acute on chronic kidney failure: -back to baseline -cont to hold Aldactone -monitor closely when diuresing Anemia: -normocytic, acute on chronic -no BRBPR, or melena -may be due to dilution(got IVF in the past 24H) -cont to monitor full code
[2019-06-11] MEDS: Albuterol/Ipratropium NEB.SOL* Albuterol 2.5 MG/Ipratropium 0.5 MG 3 ML INH SCH ×2 (15:03→20:31)
[2019-06-11] MEDS: Acetaminophen TAB* 325 MG PO PRN (15:32)
[2019-06-11] MEDS: Furosemide IV* 10 MG/ML VIAL (40 MG) IV SCH (16:52)
[2019-06-11 17:36] LABS: Urine Appearance Clear; Urine Bilirubin Negative (Negative); Urine Blood Negative (Negative); Urine Color Yellow; Urine Glucose Negative (Negative); Urine Ketones Negative (Negative); Urine Nitrite Negative (Negative); Urine Protein Negative (Negative); Urine Specific Gravity 1.013 (1.010-1.030); Urine Urobilinogen Negative (Negative)
[2019-06-11] MEDS: ALPRAZolam TAB* 0.25 MG PO PRN (20:44)
[2019-06-11] MEDS: QUEtiapine TAB* 100 MG PO SCH (20:46)
[2019-06-11] MEDS: Albuterol/Ipratropium NEB.SOL* Albuterol 2.5 MG/Ipratropium 0.5 MG 3 ML INH PRN (20:52)
[2019-06-12] MEDS: Diltiazem TAB* 30 MG PO SCH ×4 (00:41→17:24)
[2019-06-12 05:32] LABS: ABS Lymphocytes 0.4 10^3/ul (1.0-4.8); ABS Monocytes 0.5 10^3/ul (0-0.8); ABS Neutrophils 3.7 10^3/ul (1.5-7.7); Hematocrit 26 % (35-47); Hemoglobin 8.2 g/dL (12.0-16.0); Lymphocyte % 8.4 %; Mean Corpuscular HGB Conc 32 g/dL (31-36); Mean Corpuscular Hemoglobin 26 pg (27-31); Mean Corpuscular Volume 82 fL (80-97); Mean Platelet Volume 9.2 fL (7.4-10.4); Nucleated Red Blood Cells % 0.7; Platelet Count 165 10^3/uL (150-450); Red Blood Count 3.14 10^6 /uL (3.70-4.87); Red Cell Distribution Width 17 % (10-15); White Blood Count 4.5 10^3/uL (3.5-10.8)
[2019-06-12 05:46] LABS: BUN/Creatinine Ratio 34.6 (8-20); Calcium 8.6 mg/dL (8.6-10.3); EGFR African American 47.5 (>60); EGFR Non-African American 39.3 (>60)
[2019-06-12] MEDS: Heparin DRIP 25,000 UNITS(*) 25,000 UNITS/500 ML BAG IV SCH ×2 (07:03→22:25)
[2019-06-12] MEDS: SPIRIVA Respimat* (tiotropium) 2.5 mcg/inh Inhaler INH SCH ×2 (07:53→14:34)
[2019-06-12] MEDS: Furosemide IV* 10 MG/ML VIAL (40 MG) IV SCH ×2 (08:19→16:58)
[2019-06-12] MEDS: Insulin LISPRO* 1 UNITS UNIT SUBCUT SCH ×4 (09:06→22:27)
[2019-06-12] MEDS: Carvedilol TAB* 6.25 MG PO SCH ×2 (09:07→21:40)
[2019-06-12] MEDS: Gabapentin CAP(*) 300 MG PO SCH ×2 (09:07→21:39)
[2019-06-12] MEDS: Nystatin TOP POWDER* 15 GM BTL TOPICAL SCH ×2 (09:10→22:25)
[2019-06-12] MEDS: methylPREDNISolone SOD 40 MG* 1 ML VIAL IV SCH (09:10)
[2019-06-12] MEDS: ALPRAZolam TAB* 0.25 MG PO PRN ×2 (09:20→21:40)
[2019-06-12] MEDS ORDERED: Perflutren Lipid Microsphere* 3 ML VIAL ONE (14:02)
--- NOTE | 2019-06-12 14:19 | PN ---
Progress Note - Progress Note Date of Service: 06/12/19 SOAP: Subjective: []Seen and examined this AM at approx. 1000. Feeling better than on admission though cont.'s to have pain in feet, "My right one feels a bit better but my left is still bad." Breathing is stable. Hasn't gotten up much but moving in bed fairly independently. Medications: Acetaminophen (Tylenol Tab*) 650 mg PO Q4H PRN PRN Reason: PAIN - MILD Last Admin: 06/11/19 15:32 Dose: 650 mg Albuterol (Ventolin Hfa Inhaler*) 1 puff INH Q4H PRN PRN Reason: SOB/WHEEZING Albuterol/Ipratropium (Duoneb (Albuterol 2.5 Mg/Ipratropium 0.5 Mg)) 1 neb INH Q4H PRN PRN Reason: SOB/WHEEZING Last Admin: 06/11/19 20:52 Dose: 1 neb Alprazolam (Xanax Tab*) 0.25 mg PO BID PRN PRN Reason: ANXIETY Last Admin: 06/12/19 09:20 Dose: 0.25 mg Carvedilol (Coreg Tab*) 6.25 mg PO BID LIYAH Last Admin: 06/12/19 09:07 Dose: 6.25 mg Dextrose (Dextrose 50% Vial 50 Ml*) 25 ml IV PUSH .FOR FS < 60 - SS PRN PRN Reason: FS < 60 Diltiazem HCl (Cardizem Tab*) 30 mg PO Q6HR [facility] Last Admin: 06/12/19 11:51 Dose: 30 mg Furosemide (Lasix Iv*) 40 mg IV 0800,1700 [facility] Stop: 06/13/19 06:00 Last Admin: 06/12/19 08:19 Dose: 40 mg Gabapentin (Neurontin Cap(*)) 300 mg PO BID [facility] Last Admin: 06/12/19 09:07 Dose: 300 mg Heparin Sodium/Dextrose (Heparin Drip 25,000 Units(*)) 25,000 units in 500 mls @ 0 mls/hr IV PER RATE [facility]; Protocol Last Admin: 06/12/19 07:03 Dose: 36 mls/hr Insulin Human Lispro (Humalog*) 0 units SUBCUT ACHS [facility]; Protocol Last Admin: 06/12/19 11:51 Dose: 2 units Methylprednisolone Sodium Succinate (Solu-Medrol 40 Mg) 60 mg IV DAILY [facility] Last Admin: 06/12/19 09:10 Dose: 60 mg Nystatin (Nystatin Top Powder*) 1 applic TOPICAL BID [facility] Last Admin: 06/12/19 09:10 Dose: 1 applic Ondansetron HCl (Zofran Inj*) 4 mg IV Q4H PRN PRN Reason: NAUSEA/VOMITING Quetiapine Fumarate (Seroquel Tab*) 200 mg PO BEDTIME [facility] Last Admin: 06/11/19 20:46 Dose: 200 mg Tiotropium [place] (Spiriva Respimat 2.5 Mcg) 2 puff INH DAILY [facility] Last Admin: 06/12/19 07:53 Dose: Not Given Tramadol HCl (Ultram*) 50 mg PO Q8H PRN PRN Reason: PAIN Objective: [] Vital Signs Temp Pulse Resp BP Pulse Ox 97.6 F 98 18 118/77 100 06/12/19 11:15 06/12/19 11:15 06/12/19 11:53 06/12/19 11:15 06/12/19 11:15 A&Ox3, doesn't fully comprehend her condition HRI, tele A.Fib with rate controlled, frequent PVCs LS with wheezes throughout +BS, abd. soft and non-tender Obese +PP=bilat, no edema and no obvious swelling of the ankle joints Laboratory Results - last 24 hr 06/11/19 06/11/19 06/11/19 16:24 16:53 17:25 WBC RBC Hgb Hct MCV MCH MCHC RDW Plt Count MPV Neut % (Auto) Lymph % (Auto) [place] % (Auto) Eos % (Auto) Baso % (Auto) Absolute Neuts (auto) Absolute Lymphs (auto) Absolute Monos (auto) Absolute Eos (auto) Absolute Basos (auto) Absolute Nucleated RBC Nucleated RBC % APTT 58.2 H Sodium Potassium Chloride Carbon Dioxide Anion Gap BUN Creatinine Est GFR ( Amer) Est GFR (Non-Af Amer) BUN/Creatinine Ratio Glucose POC Glucose (mg/dL) 170 H Hemoglobin A1c Uric Acid Calcium B-Natriuretic Peptide Urine Color Yellow Urine Appearance Clear Urine pH 6.0 Ur Specific [place] 1.013 Urine Protein Negative Urine Ketones Negative Urine Blood Negative Urine Nitrate Negative Urine Bilirubin Negative Urine Urobilinogen Negative Ur Leukocyte Esterase Negative Urine Glucose Negative 06/11/19 06/12/19 06/12/19 20:10 04:55 04:55 WBC 4.5 RBC 3.14 L Hgb 8.2 L Hct 26 L MCV 82 MCH 26 L MCHC 32 RDW 17 H Plt Count 165 MPV 9.2 Neut % (Auto) 81.2 Lymph % (Auto) 8.4 [place] % (Auto) 10.1 Eos % (Auto) 0.0 Baso % (Auto) 0.3 Absolute Neuts (auto) 3.7 Absolute Lymphs (auto) 0.4 L Absolute Monos (auto) 0.5 Absolute Eos (auto) 0.0 Absolute Basos (auto) 0.0 Absolute Nucleated RBC 0.0 Nucleated RBC % 0.7 APTT Sodium 140 Potassium 4.0 Chloride 106 Carbon Dioxide 29 Anion Gap 5 BUN 47 H Creatinine 1.36 H Est GFR ( Amer) 47.5 Est GFR (Non-Af Amer) 39.3 BUN/Creatinine Ratio 34.6 H Glucose 133 H POC Glucose (mg/dL) 249 H Hemoglobin A1c Uric Acid Calcium 8.6 B-Natriuretic Peptide Urine Color Urine Appearance Urine pH Ur Specific [place] Urine Protein Urine Ketones Urine Blood Urine Nitrate Urine Bilirubin Urine Urobilinogen Ur Leukocyte Esterase Urine Glucose 06/12/19 06/12/19 06/12/19 04:55 05:30 08:19 WBC RBC Hgb Hct MCV MCH MCHC RDW Plt Count MPV Neut % (Auto) Lymph % (Auto) [place] % (Auto) Eos % (Auto) Baso % (Auto) Absolute Neuts (auto) Absolute Lymphs (auto) Absolute Monos (auto) Absolute Eos (auto) Absolute Basos (auto) Absolute Nucleated RBC Nucleated RBC % APTT Sodium Potassium Chloride Carbon Dioxide Anion Gap BUN Creatinine Est GFR ( Amer) Est GFR (Non-Af Amer) BUN/Creatinine Ratio Glucose POC Glucose (mg/dL) 164 H Hemoglobin A1c 5.8 H Uric Acid Calcium B-Natriuretic Peptide 388 H Urine Color Urine Appearance Urine pH Ur Specific [place] Urine Protein Urine Ketones Urine Blood Urine Nitrate Urine Bilirubin Urine Urobilinogen Ur Leukocyte Esterase Urine Glucose 06/12/19 06/12/19 11:27 11:45 WBC RBC Hgb Hct MCV MCH MCHC RDW Plt Count MPV Neut % (Auto) Lymph % (Auto) [place] % (Auto) Eos % (Auto) Baso % (Auto) Absolute Neuts (auto) Absolute Lymphs (auto) Absolute Monos (auto) Absolute Eos (auto) Absolute Basos (auto) Absolute Nucleated RBC Nucleated RBC % APTT Sodium Potassium Chloride Carbon Dioxide Anion Gap BUN Creatinine Est GFR ( Amer) Est GFR (Non-Af Amer) BUN/Creatinine Ratio Glucose POC Glucose (mg/dL) 163 H Hemoglobin A1c Uric Acid 10.0 H Calcium B-Natriuretic Peptide Urine Color Urine Appearance Urine pH Ur Specific [place] Urine Protein Urine Ketones Urine Blood Urine Nitrate Urine Bilirubin Urine Urobilinogen Ur Leukocyte Esterase Urine Glucose Assessment: []Complicated 63 yo morbidly obese female with systolic CHF, Afib, COPD,, DM, FRANCIS and mantle cell lymphoma recently restarted on therapy with rituxumab and revlimid, presenting with bilateral foot pain of unclear etiology and lethargy. It is unclear if the lethargy is related to inappropriate use of sedating medications or dehydration. Subsequent FVO yesterday following fluid resucitation now improved with discontinuation of fluids and diuresis. I am curious if her foot/ankle pain actually represents gout and her uric acid, following significant rehydration, is elevated. She is already on steroids and so we will hold off on further interventions for now. Plan: []COPD: - cont daily IV Solumedrol - PRN nebs and scheduled spiriva Afib w RVR now improved: - lower dose coreg and diltiazem (change to 30 q6 so easier to hold) as BP improved but still tenuous - on hep gtt d/t borderline GFR, was not able to manage coumadin and therefore changed to Xarelto, we will need to consider dose adjustmen to d/c. CHF with FVO: - improved with diuresis, cont. IV lasix today and switch to PO lasix tomorrow AM - hold spironaldactone with question of gout DM: - HbA1c <6 and not on any diabetic meds - insulin sliding scale and FS given acute illness and steroids Foot pain, unclear process, however with elevated uric acid this may indicate gout: - slight improvement since admission, unclear if this related to gabapentin for neuropathy or from steroids d/t inflammation, cont. both for now - cont. both for now, can resume tramadol PRN - consider allopurinol in future, though would wait a couple weeks Mantle cell lymphoma: - just started revlimid/rituxan, C1D25 of 28 day cycle today - recommend ASA 81 mg on d/c d/t thrombotic risk with Rev. acute on chronic kidney failure: - appears stabilized, hold additional fluids for now Thrush: - cont. nystatin swish and spit Weakness, multi-factorial: - PT eval. and treat to help with d/c planning full code Dispo: cont. inpatient care for PT eval. for safety @ home, earliest d/c would be tomorrow
[2019-06-12] MEDS: Albuterol/Ipratropium NEB.SOL* Albuterol 2.5 MG/Ipratropium 0.5 MG 3 ML INH PRN ×2 (14:33→22:18)
--- NOTE | 2019-06-12 15:23 | ECHO ---
*[facility]* [place] [address] Fax #: [phone] Transthoracic Echocardiogram Patient: Adrianna Robledo : 1955 Study Date: 06/12/2019 Age: 63 Gender: F HR: 88 bpm Height: 69 in /175.3 cm BSA: 2.56 m^2 Weight: 329.3 lb /149.7 kg BMI: 48.7 kg/m^2 *Customer Program Specialist: * Raquel Rocha [facility] *Referring Physician: * Karmen Zepeda *Reading Physician: * Navdeep Cam MD Indications: Congestive Heart Failure. History: Atrial fibrillation. Congestive heart failure. Chronic obstructive pulmonary disease. PMH: Cardiomyopathy. Risk factors: Hypertension. Diabetes mellitus. Morbidly obese. Labs, prior tests, procedures, and surgery: ICD system implantation. Conclusions Summary: - Left ventricle: Systolic function is moderately reduced. The estimated ejection fraction is 35-40%. Diffuse hypokinesis with regional variations. - Right ventricle: The cavity size is moderately dilated. Pacer wire noted in the right ventricle. Systolic function is mildly to moderately reduced. - Left atrium: The atrium is moderately dilated. - Right atrium: The atrium is moderately to severely dilated. - Tricuspid valve: There is trace to mild regurgitation. - Pulmonary arteries: Systolic pressure is within the normal range. Pulmonary artery pressure may be underestimated Recommendations: Compared to prior study from 10/2017, tricuspid regurgitation was previously mild-moderate and pulmonary artery pressure was mildly elevated. Study data: Transthoracic echocardiogram. Procedure: Transthoracic echocardiography was performed. Image quality was suboptimal. The study was technically limited due to body habitus. Intravenous Definity , 3 mlswas administered. Unable to perform parasternal short axis imaging with Definity due to patient becoming too short of breath. Complete 2D, spectral Doppler, and color flow Doppler. Location: Bedside. Patient status: Inpatient. Patient room number: 414-02. Rhythm: Atrial fibrillation. Findings Left ventricle: Systolic function is moderately reduced. The estimated ejection fraction is 35-40%. Diffuse hypokinesis with regional variations. Left ventricular diastolic function parameters are indeterminate. Right ventricle: The cavity size is moderately dilated. Pacer wire noted in the right ventricle. Systolic function is mildly to moderately reduced. Systolic pressure is within the normal range. Ventricular septum: There is septal flattening of the interventricular septum consistent with RV volume or pressure overload. Left atrium: The atrium is moderately dilated. Right atrium: The atrium is moderately to severely dilated. Pacer wire noted in right atrium. Mitral valve: The leaflets are mildly thickened. There is no evidence of stenosis. There is trace to mild regurgitation. Aortic valve: The valve is trileaflet. The leaflets are normal thickness. There is no evidence of stenosis. There is no significant regurgitation. Tricuspid valve: Poorly visualized. The leaflets are normal thickness. There is no evidence of stenosis. There is trace to mild regurgitation. Pulmonic valve: The leaflets are normal thickness. There is no evidence of stenosis. There is mild regurgitation. Aorta: Aortic root: The aortic root is appears normal. Ascending aorta: The ascending aorta is appears normal. Aortic arch: The aortic arch is appears normal. Pericardium: A prominent pericardial fat pad is present. There is no significant pericardial effusion. Pulmonary arteries: The main pulmonary artery is normal-sized. Systolic pressure is within the normal range. Pulmonary artery pressure may be underestimated Systemic veins: Inferior vena cava: The vessel is dilated. There is (>= 50%) respiratory change in the IVC dimension. Measurements Left ventricle Value Ref Aortic valve Value Ref VIJAYA, LAX (H) 5.7 cm 3.8 - 5.2 Robert diam, ED 1.7 cm ----- ESD, LAX (H) 4.1 cm 2.2 - 3.5 Peak v, S 1.47 m/sec ----- FS, LAX 28 % 27 - 45 VTI, S 22.7 cm ----- PW, ED, LAX (H) 1.0 cm 0.6 - 0.9 Mean grad, S 4.0 mm Hg ----- FS 28 % 27 - 45 Peak grad, S 9.0 mm Hg ----- PW, ED (H) 1.0 cm 0.6 - 0.9 LVOT/AV, VTI ratio 0.7 ----- E', lat robert, TDI 10.2 cm/sec >=10.0 E/e', lat robert, 11 Mitral valve Value Ref TDI Peak E 1.11 m/sec ----- E', med robert, TDI 8.2 cm/sec >=7.0 Decel time 161 ms --- -- E/e', med robert, 14 Peak grad, D 4.9 mm Hg ----- TDI E', avg, TDI 9.2 cm/sec Pulmonic valve Value Ref E/e', avg, TDI 12 <=14 Peak v, S 1.03 m/sec --- -- Peak grad, S 4.0 mm Hg ----- LVOT Value Ref AZ v, ED 1.82 m/sec ----- Peak tri, S 0.92 m/sec AZ grad, ED 13 mm Hg ----- VTI, S 16.0 cm Mean grad, S 2 mm Hg Tricuspid valve Value Ref TR peak v 2.11 m/sec <=2.8 Ventricular septum Value Ref Peak RV-RA grad, S 18 mm Hg ----- IVS, ED 0.9 cm 0.6 - 0.9 Aortic root Value Ref Right ventricle Value Ref Root diam 2.7 cm <4.6 VIJAYA, LAX 4.6 cm VIJAYA minor ax, A4C (H) 4.8 cm 1.9 - 3.5 Ascending aorta Value Ref mid AAo AP diam, S 3.0 cm ----- Pressure, S 26 mm Hg Aortic arch Value Ref Left atrium Value Ref Arch diam 2.5 cm ----- AP dim, ES (H) 5.40 cm 2.70 - 3.80 Decending aorta Value Ref ML dim, A4C 4.9 cm Rae peak tri 0.82 m/sec ----- SI dim, A4C 6.1 cm Vol/bsa, ES, 1-p 40 ml/m^2 11 - 40 Pulmonary artery Value Ref A4C Pressure, S 22.0 mm Hg ----- Vol/bsa, ES, A/L (H) 45 ml/m^2 16 - 34 Inferior vena cava Value Ref Right atrium Value Ref Diam 2.4 cm ----- SI dim, ES (H) 6.1 cm 3.4 - 5.3 ML dim, ES, A4C (H) 5.4 cm 2.6 - 4.4 Estimated RAP 8 mm Hg Legend: (L) and (H) lucas values outside specified reference range. Prepared and electronically signed by Navdeep Cam MD 06/12/2019 15:22
[2019-06-12] MEDS: Acetaminophen TAB* 325 MG PO PRN (21:37)
[2019-06-12] MEDS: QUEtiapine TAB* 100 MG PO SCH (21:40)
[2019-06-13] MEDS: Diltiazem TAB* 30 MG PO SCH ×5 (03:25→23:43)
[2019-06-13] MEDS ORDERED: Diltiazem TAB* 30 MG PO SCH (03:30)
[2019-06-13] MEDS: Acetaminophen TAB* 325 MG PO PRN ×2 (05:20→23:52)
--- NOTE | 2019-06-13 05:46 | PN ---
Hospitalist Progress Note Date of Service: 06/13/19 Called for VTach 17 beats in tele around 5am Patient was asymptomatic Reviewed tele: monomorphic tachy stops on its own, total 17 beats. Baseline Afib with rate controlled History of COPD, Afib,HFrEF (Ef 30%), on diuretics Plan: will check electrolytes and make sure no electrolyte abnormality with diuretic use
[2019-06-13 05:54] LABS: ABS Nucleated RBC 0.1 10^3/ul; Hematocrit 28 % (35-47); Hemoglobin 8.7 g/dL (12.0-16.0); Mean Corpuscular HGB Conc 32 g/dL (31-36); Mean Corpuscular Hemoglobin 26 pg (27-31); Mean Corpuscular Volume 83 fL (80-97); Nucleated Red Blood Cells % 1.2; Platelet Count 170 10^3/uL (150-450); Red Blood Count 3.33 10^6 /uL (3.70-4.87); Red Cell Distribution Width 17 % (10-15)
[2019-06-13 06:07] LABS: BUN/Creatinine Ratio 37.1 (8-20); Calcium 8.7 mg/dL (8.6-10.3); EGFR African American 52.9 (>60); EGFR Non-African American 43.7 (>60); Magnesium 1.4 mg/dL (1.9-2.7); Potassium 3.9 mmol/L (3.5-5.0)
[2019-06-13] MEDS: SPIRIVA Respimat* (tiotropium) 2.5 mcg/inh Inhaler INH SCH (07:50)
[2019-06-13] MEDS: Nystatin TOP POWDER* 15 GM BTL TOPICAL SCH ×2 (09:02→21:45)
[2019-06-13] MEDS: ALPRAZolam TAB* 0.25 MG PO PRN ×2 (09:02→20:26)
[2019-06-13] MEDS: Carvedilol TAB* 6.25 MG PO SCH ×2 (09:03→20:26)
[2019-06-13] MEDS: Gabapentin CAP(*) 300 MG PO SCH ×2 (09:03→20:26)
[2019-06-13] MEDS: Furosemide TAB* 20 MG PO SCH (09:03)
[2019-06-13] MEDS: methylPREDNISolone SOD 40 MG* 1 ML VIAL IV SCH (09:04)
[2019-06-13] MEDS: Insulin LISPRO* 1 UNITS UNIT SUBCUT SCH ×4 (09:04→21:41)
[2019-06-13] MEDS ORDERED: Magnesium Sulf 4 GM/100 ML IV* 4,000 MG/100 ML BAG IVPB ONE (10:00)
[2019-06-13] MEDS: Colchicine* 0.6 MG TAB PO SCH (10:50)
[2019-06-13] MEDS: Polyethylene Glycol 3350* 17 GM PACKET PO SCH (10:50)
[2019-06-13] MEDS: guaiFENesin ER TAB 600 MG PO SCH ×2 (10:51→20:26)
[2019-06-13] MEDS: Rivaroxaban TAB(*) 20 MG TAB PO SCH (10:51)
[2019-06-13] MEDS: Potassium Chlor TAB* 20 MEQ TAB.ER PO SCH (10:53)
[2019-06-13 16:50] LABS: BUN/Creatinine Ratio 41.7 (8-20); Calcium 8.9 mg/dL (8.6-10.3); EGFR African American 51.4 (>60); EGFR Non-African American 42.5 (>60); Magnesium 3.9 mg/dL (1.9-2.7); Potassium 4.2 mmol/L (3.5-5.0)
[2019-06-13] MEDS: traMADol TAB* 50 MG PO PRN (19:43)
[2019-06-13] MEDS: QUEtiapine TAB* 100 MG PO SCH (20:26)
[2019-06-14] MEDS: Acetaminophen TAB* 325 MG PO PRN ×2 (06:07→21:07)
[2019-06-14] MEDS: Diltiazem TAB* 30 MG PO SCH ×4 (06:07→23:46)
[2019-06-14] MEDS: traMADol TAB* 50 MG PO PRN ×2 (06:07→20:03)
[2019-06-14] MEDS: SPIRIVA Respimat* (tiotropium) 2.5 mcg/inh Inhaler INH SCH (07:16)
[2019-06-14] MEDS: Polyethylene Glycol 3350* 17 GM PACKET PO SCH (08:32)
[2019-06-14] MEDS: guaiFENesin ER TAB 600 MG PO SCH ×2 (08:32→20:03)
[2019-06-14] MEDS: Furosemide TAB* 20 MG PO SCH (08:33)
[2019-06-14] MEDS: Rivaroxaban TAB(*) 20 MG TAB PO SCH (08:33)
[2019-06-14] MEDS: Gabapentin CAP(*) 300 MG PO SCH ×2 (08:33→20:03)
[2019-06-14] MEDS: Colchicine* 0.6 MG TAB PO SCH (08:33)
[2019-06-14] MEDS: Carvedilol TAB* 6.25 MG PO SCH ×2 (08:33→20:03)
[2019-06-14] MEDS: Potassium Chlor TAB* 20 MEQ TAB.ER PO SCH (08:33)
[2019-06-14] MEDS: Insulin LISPRO* 1 UNITS UNIT SUBCUT SCH ×4 (08:34→21:08)
[2019-06-14] MEDS: Nystatin TOP POWDER* 15 GM BTL TOPICAL SCH ×2 (08:34→20:05)
[2019-06-14] MEDS: methylPREDNISolone SOD 40 MG* 1 ML VIAL IV SCH (08:36)
[2019-06-14] MEDS: ALPRAZolam TAB* 0.25 MG PO PRN (08:43)
[2019-06-14] MEDS: QUEtiapine TAB* 100 MG PO SCH (20:03)
[2019-06-15] MEDS: ALPRAZolam TAB* 0.25 MG PO PRN ×2 (02:52→20:37)
[2019-06-15] MEDS: Diltiazem TAB* 30 MG PO SCH (05:04)
[2019-06-15 05:28] LABS: ABS Lymphocytes 0.6 10^3/ul (1.0-4.8); ABS Monocytes 0.9 10^3/ul (0-0.8); ABS Neutrophils 4.3 10^3/ul (1.5-7.7); ABS Nucleated RBC 0.1 10^3/ul; Eosinophil % 0.3 %; Hematocrit 27 % (35-47); Lymphocyte % 10.1 %; Mean Corpuscular HGB Conc 33 g/dL (31-36); Mean Corpuscular Hemoglobin 27 pg (27-31); Mean Corpuscular Volume 81 fL (80-97); Mean Platelet Volume 9.1 fL (7.4-10.4); Platelet Count 221 10^3/uL (150-450); Red Blood Count 3.35 10^6 /uL (3.70-4.87); Red Cell Distribution Width 16 % (10-15); White Blood Count 5.8 10^3/uL (3.5-10.8)
[2019-06-15 06:01] LABS: BUN/Creatinine Ratio 48.8 (8-20); Calcium 8.8 mg/dL (8.6-10.3); EGFR African American 51.4 (>60); EGFR Non-African American 42.5 (>60)
[2019-06-15] MEDS: SPIRIVA Respimat* (tiotropium) 2.5 mcg/inh Inhaler INH SCH (07:50)
[2019-06-15] MEDS: Insulin LISPRO* 1 UNITS UNIT SUBCUT SCH ×4 (07:52→20:38)
[2019-06-15] MEDS ORDERED: Spironolactone TAB* 25 MG PO ONE (08:45)
--- NOTE | 2019-06-15 09:11 | PN ---
Progress Note - Progress Note Date of Service: 06/15/19 SOAP: Subjective: doing ok overall. states that it still hurts to put any pressure on the pad of her feet L>R. not sure if it is really any better since admission. breathing and mentation clearly better. is very clear that she does NOT want to go to [facility] and also does not really want strangers in her house so wondering if her can be paid to be her aide. Objective: Vital Signs Temp Pulse Resp BP Pulse Ox 98.2 F 89 18 136/86 100 06/15/19 07:15 06/15/19 07:15 06/15/19 07:15 06/15/19 07:15 06/15/19 07:15 sitting up in nad perr eomi op moist clearer today, no wheezing distant heart sounds obese NT +bs no LE edema ttp over bottom of feet bilaterally L>R Laboratory Results - last 24 hr Acetaminophen (Tylenol Tab*) 650 mg PO Q4H PRN PRN Reason: PAIN - MILD Last Admin: 06/14/19 21:07 Dose: 650 mg Albuterol (Ventolin Hfa Inhaler*) 1 puff INH Q4H PRN PRN Reason: SOB/WHEEZING Albuterol/Ipratropium (Duoneb (Albuterol 2.5 Mg/Ipratropium 0.5 Mg)) 1 neb INH Q4H PRN PRN Reason: SOB/WHEEZING Last Admin: 06/12/19 22:18 Dose: 1 neb Alprazolam (Xanax Tab*) 0.25 mg PO BID PRN PRN Reason: ANXIETY Last Admin: 06/15/19 02:52 Dose: 0.25 mg Carvedilol (Coreg Tab*) 6.25 mg PO BID [facility] Last Admin: 06/14/19 20:03 Dose: 6.25 mg Colchicine (Colcrys*) 0.3 mg PO DAILY [facility] Dextrose (Dextrose 50% Vial 50 Ml*) 25 ml IV PUSH .FOR FS < 60 - SS PRN PRN Reason: FS < 60 Diltiazem HCl (Cardizem Cd Cap*) 180 mg PO DAILY [facility] Furosemide (Lasix Tab*) 60 mg PO DAILY [facility] Last Admin: 06/14/19 08:33 Dose: 60 mg Gabapentin (Neurontin Cap(*)) 300 mg PO BID [facility] Last Admin: 06/14/19 20:03 Dose: 300 mg Guaifenesin (Mucinex*) 600 mg PO BID [facility] Last Admin: 06/14/19 20:03 Dose: 600 mg Insulin Human Lispro (Humalog*) 0 units SUBCUT ACHS [facility]; Protocol Last Admin: 06/15/19 07:52 Dose: Not Given Nystatin (Nystatin Top Powder*) 1 applic TOPICAL BID [facility] Last Admin: 06/14/19 20:05 Dose: 1 applic Ondansetron HCl (Zofran Inj*) 4 mg IV Q4H PRN PRN Reason: NAUSEA/VOMITING Polyethylene Glycol/Electrolytes (Miralax*) 17 gm PO DAILY [facility] Last Admin: 06/14/19 08:32 Dose: Not Given Potassium Chloride (Klor Con Er Tab*) 20 meq PO DAILY [facility] Last Admin: 06/14/19 08:33 Dose: 20 meq Prednisone (Deltasone 20 Mg Tab) 60 mg PO DAILY [facility] Quetiapine Fumarate (Seroquel Tab*) 200 mg PO BEDTIME [facility] Last Admin: 06/14/19 20:03 Dose: 200 mg Rivaroxaban (Xarelto(*)) 20 mg PO DAILY [facility] Last Admin: 06/14/19 08:33 Dose: 20 mg Tiotropium [place] (Spiriva Respimat 2.5 Mcg) 2 puff INH DAILY [facility] Last Admin: 06/15/19 07:50 Dose: 2 puff Tramadol HCl (Ultram*) 50 mg PO Q8H PRN PRN Reason: PAIN Last Admin: 06/14/19 20:03 Dose: 50 mg 06/14/19 06/15/19 06/15/19 21:01 05:15 05:35 WBC 5.8 RBC 3.35 L Hgb 9.0 L Hct 27 L MCV 81 MCH 27 MCHC 33 RDW 16 H Plt Count 221 MPV 9.1 Neut % (Auto) 73.6 Lymph % (Auto) 10.1 [place] % (Auto) 15.3 Eos % (Auto) 0.3 Baso % (Auto) 0.7 Absolute Neuts (auto) 4.3 Absolute Lymphs (auto) 0.6 L Absolute Monos (auto) 0.9 H Absolute Eos (auto) 0.0 Absolute Basos (auto) 0.0 Absolute Nucleated RBC 0.1 Nucleated RBC % 1.0 Sodium 138 Potassium 5.0 Chloride 102 Carbon Dioxide 32 Anion Gap 4 BUN 62 H Creatinine 1.27 H Est GFR ( Amer) 51.4 Est GFR (Non-Af Amer) 42.5 BUN/Creatinine Ratio 48.8 H Glucose 121 H POC Glucose (mg/dL) 143 H Calcium 8.8 Magnesium Assessment: Complicated 63 yo morbidly obese female with systolic CHF, Afib, COPD,, DM, FRANCIS and mantle cell lymphoma recently restarted on therapy with rituxumab and revlimid, presenting with bilateral foot pain of unclear etiology and lethargy. her lethargy has resolved and is likely related to medication administration. I am unclear as to the etiology of her foot pain, but it is the limiting factor for discharge. She did have a markedly elevated uric acid on 06/12 despite IV steroids and so colchicine was added (dose decreased today per pharmacy recommendation given creatinine, cardizem and xeralto interactions). At this point I would like to get orthopedics to weigh in on diagnosis and plan. Plan: COPD: - improved, switch to PO prednisone - PRN nebs and scheduled spiriva Afib w RVR now improved: - lower dose coreg and diltiazem , switch to long acting cardizem again -Dr. Jc switched back to Xeralto 20 mg daily given improved creatinine CHF with FVO: -weight up 14 pounds in 3 days, but will hold off on increasing diuresis until diagnosis of gout ruled out - hold spironaldactone with question of gout DM: - HbA1c <6 and not on any diabetic meds - insulin sliding scale and FS given acute illness and steroids Foot pain, unclear process, however with elevated uric acid this may indicate gout: - ortho consult Mantle cell lymphoma: - just started revlimid/rituxan, C1D27 of 28 day cycle today - recommend ASA 81 mg on d/c d/t thrombotic risk with Rev. acute on chronic kidney failure: - appears stabilized, hold additional fluids for now Thrush: - cont. nystatin swish and spit Weakness, multi-factorial: - PT eval. and treat to help with d/c planning full code Dispo: cont. inpatient care for PT eval. for safety @ home
[2019-06-15] MEDS: Gabapentin CAP(*) 300 MG PO SCH ×2 (10:33→20:37)
[2019-06-15] MEDS: Carvedilol TAB* 6.25 MG PO SCH ×2 (10:33→20:34)
[2019-06-15] MEDS: Rivaroxaban TAB(*) 20 MG TAB PO SCH (10:33)
[2019-06-15] MEDS: Colchicine* 0.6 MG TAB PO SCH (10:34)
[2019-06-15] MEDS: Nystatin TOP POWDER* 15 GM BTL TOPICAL SCH ×2 (10:34→21:24)
[2019-06-15] MEDS: guaiFENesin ER TAB 600 MG PO SCH ×2 (10:34→20:37)
[2019-06-15] MEDS: Furosemide TAB* 20 MG PO SCH (10:34)
[2019-06-15] MEDS: Potassium Chlor TAB* 20 MEQ TAB.ER PO SCH (10:34)
[2019-06-15] MEDS: Polyethylene Glycol 3350* 17 GM PACKET PO SCH (10:34)
[2019-06-15] MEDS: Diltiazem CD CAP* 180 MG PO SCH (10:34)
[2019-06-15 10:42] LABS: Uric Acid 9.4 mg/dL (2.3-6.6)
[2019-06-15 11:33] LABS: C Reactive Protein 17.93 mg/L (<8.01)
[2019-06-15 12:37] LABS: Erythrocyte Sed Rate 59 mm/Hr (0-29)
[2019-06-15] MEDS: Simethicone TAB* 80 MG TAB.CHEW PO PRN (15:22)
[2019-06-15] MEDS: Nicotine PATCH 14 MG/24 HR* PATCH TRANSDERM SCH (15:22)
[2019-06-15] MEDS: traMADol TAB* 50 MG PO PRN (16:48)
--- NOTE | 2019-06-15 20:09 | CONS ---
ORTHOPEDIC CONSULTATION NOTE: DATE OF CONSULT: 06/15/19 Thank you for this orthopedic consultation. CHIEF COMPLAINT: Bilateral foot pain, inability to ambulate. HISTORY OF PRESENT ILLNESS: Ms. Robledo is a 63-year-old morbidly obese diabetic female with mantle cell lymphoma. She was admitted by the [facility] because of dehydration and lethargy as well as bilateral lower extremity pain. The patient reports 1 week of bilateral lower extremity and foot pain. Her left hurts more than the right. She reports this is 10/10 pain when she weightbears. Her pain is worst at her bilateral MTP joints and also is quite painful along her heel and plantar fascia. She reports she is able to walk on her heels a short distance. The patient was seen in the emergency room and radiographs of the left ankle showed no obvious fracture. She was prescribed tramadol and Vicodin. She has been using Tylenol PM as well. She denies any recent falls. She did have a fusion of her hindfoot in the past on the right. PAST MEDICAL HISTORY: 1. Mantle cell lymphoma. 2. CHF. 3. Ejection fraction 35%. 4. Chronic O2 use. 5. Heart arrhythmia. 6. Atrial fibrillation. 7. COPD. 8. CHF. 9. Coronary artery disease. 10. Type 2 diabetes. 11. Hyperlipidemia. 12. Morbid obesity. 13. Hypertension. 14. Osteoarthritis. 15. Chronic kidney disease. 16. Cardiomyopathy. PAST SURGICAL HISTORY: 1. Lymph node biopsy. 2. Defibrillator placement. HOME MEDICATIONS: 1. Alprazolam 0.5 mg p.o. b.i.d. 2. Atorvastatin 20 mg p.o. daily. 3. Carvedilol 25 mg p.o. b.i.d. 4. Cyclobenzaprine 10 mg p.o. t.i.d. p.r.n., muscle spasm 5. Diltiazem ER 180 mg p.o. daily. 6. Hydrocodone as needed. 7. Oxygen 3 L daily. 8. Potassium chloride 20 mEq p.o. daily. 9. Quetiapine 100 mg p.o. q.h.s. 10. Revlimid 20 mg p.o. daily for 21 days. 11. Rivaroxaban 20 mg p.o. daily. 12. Spironolactone 50 mg p.o. daily. 13. Tramadol p.r.n. 14. Trazodone 50 mg p.o. q.h.s. ALLERGIES: ASPIRIN. FAMILY HISTORY: Cancer. SOCIAL HISTORY: The patient lives her , no tobacco, alcohol or recreational drugs. She normally ambulates with cane, although short distances. REVIEW OF SYSTEMS: The patient reports bilateral foot pain, difficulty ambulating, fatigue, lethargy. The patient denies fevers, chills, chest pain, shortness of breath. Otherwise, the patient reports review of systems is negative or not relevant. PHYSICAL EXAM: Vitals: Temperature 97.7, heart rate 88, blood pressure 125/ 84. General: The patient is a well-nourished female, in no apparent distress. Alert and oriented x3. Pleasant mood, appropriate affect. Gait: The patient' s gait is antalgic. She only takes steps on her heels, refuses to put her forefoot down. Bilateral lower extremities: The patient's skin is intact. No abrasions or open wounds. Extreme tenderness to palpation along the MTP joint. The left side has some mild erythema around this joint. No palpable masses or fluid collections around her bilateral feet. No erythema or obvious cellulitis. She reports full sensation to light touch in the ulnar nerve distribution. She demonstrates dorsiflexion and plantar flexion strength. She has tenderness along the plantar fascia of both feet, 2+ palpable DP pulses. DIAGNOSTIC STUDIES/LAB DATA: Radiographs: Multiple views of the patient's bilateral feet reviewed. There is diffuse osteoarthritis. Right foot has fusion of the subtalar joint. Significant MTP joint osteoarthritis, but also diffuse midfoot arthritis. No obvious fractures are visualized. Labs: White blood cells 5.8, hematocrit 27, platelets 221. PTT 73.6. Sodium 138, potassium 5, chloride 102, BUN and creatinine 62 and 1.27, uric acid 9.4, CRP 18. ASSESSMENT AND PLAN: Ms. Robledo is a 63-year-old female with 1 week of bilateral lower extremity pain and difficulty ambulating. Today, her feet are her main concern. She does have pain in her MTP joints and elevated uric acid. Certainly, it is possible that she has a gouty attack of arthritis in her forefoot and is having difficulty walking. She is currently on prednisone and colchicine. The patient reports that she was improved today and was able to ambulate a small amount. She does have diffuse arthritis on her plain films and we discussed and reviewed her x-rays today. She understands she has no fractures. Although, the patient denies that she has diabetes, this is in her medical history. It is possible she is having neuropathic pain as well and I discussed this with her. I would recommend continuing to weightbear and ambulate with a rolling walker at all times. She should have physical therapy and be weightbearing as tolerated. I certainly recommend continuing the colchicine. I seen no physical exam findings consistent with infection and her labs showed no leukocytosis. However, in an immunocompromise patient with chemotherapy, of course, I am always concerned about infection. Orthopedics will follow the patient closely. If she is discharged, then I would like her to see one of our foot and ankle specialist within 2 weeks. The patient is given the phone number for the office and a card. Orthopedics will follow up. [id number]/[facility] #: [id number] FLOYD
[2019-06-15] MEDS: QUEtiapine TAB* 100 MG PO SCH (20:37)
[2019-06-16] MEDS: traMADol TAB* 50 MG PO PRN (04:09)
[2019-06-16] MEDS ORDERED: Nicotine Patch Removal NOTE FOLLOW UP SCH (06:00)
[2019-06-16 06:25] LABS: Albumin 2.8 g/dL (3.2-5.2); Albumin/Globulin Ratio 1.1 (1-3); BUN/Creatinine Ratio 52.8 (8-20); Calcium 8.5 mg/dL (8.6-10.3); EGFR Non-African American 51.2 (>60); Globulin 2.6 g/dL (2-4); Magnesium 2.2 mg/dL (1.9-2.7); Total Bilirubin 0.3 mg/dL (0.2-1.0); Total Protein 5.4 g/dL (6.4-8.9)
[2019-06-16 06:26] LABS: Potassium 5.1 mmol/L (3.5-5.0)
[2019-06-16 06:33] LABS: ABS Lymphocytes 2.5 10^3/ul (1.0-4.8); ABS Monocytes 0.6 10^3/ul (0-0.8); ABS Neutrophils 2.7 10^3/ul (1.5-7.7); Eosinophil % 0.1 %; Hematocrit 28 % (35-47); Hemoglobin 8.9 g/dL (12.0-16.0); Lymphocyte % 43.3 %; Mean Corpuscular HGB Conc 32 g/dL (31-36); Mean Corpuscular Hemoglobin 27 pg (27-31); Mean Corpuscular Volume 83 fL (80-97); Mean Platelet Volume 8.4 fL (7.4-10.4); Nucleated Red Blood Cells % 0.5; Platelet Count 239 10^3/uL (150-450); Red Blood Count 3.33 10^6 /uL (3.70-4.87); Red Cell Distribution Width 17 % (10-15); White Blood Count 5.8 10^3/uL (3.5-10.8)
[2019-06-16] MEDS: Insulin LISPRO* 1 UNITS UNIT SUBCUT SCH ×4 (07:37→20:51)
[2019-06-16] MEDS: SPIRIVA Respimat* (tiotropium) 2.5 mcg/inh Inhaler INH SCH (07:51)
[2019-06-16] MEDS: Simethicone TAB* 80 MG TAB.CHEW PO PRN ×2 (08:31→16:41)
[2019-06-16] MEDS: Nicotine PATCH 14 MG/24 HR* PATCH TRANSDERM SCH (08:32)
[2019-06-16] MEDS: Colchicine* 0.6 MG TAB PO SCH (08:34)
[2019-06-16] MEDS: Gabapentin CAP(*) 300 MG PO SCH ×2 (08:35→20:51)
[2019-06-16] MEDS: Furosemide TAB* 20 MG PO SCH (08:35)
[2019-06-16] MEDS: Potassium Chlor TAB* 20 MEQ TAB.ER PO SCH (08:35)
[2019-06-16] MEDS: Carvedilol TAB* 6.25 MG PO SCH ×2 (08:36→20:51)
[2019-06-16] MEDS: guaiFENesin ER TAB 600 MG PO SCH ×2 (08:36→20:50)
[2019-06-16] MEDS: Diltiazem CD CAP* 180 MG PO SCH (08:36)
[2019-06-16] MEDS: Acetaminophen TAB* 325 MG PO PRN (08:36)
[2019-06-16] MEDS: Rivaroxaban TAB(*) 20 MG TAB PO SCH (08:36)
[2019-06-16] MEDS: Polyethylene Glycol 3350* 17 GM PACKET PO SCH (08:42)
[2019-06-16] MEDS: Nystatin TOP POWDER* 15 GM BTL TOPICAL SCH ×3 (08:42→22:00)
--- NOTE | 2019-06-16 11:18 | PN ---
Progress Note - Progress Note Date of Service: 06/16/19 SOAP: Subjective: [Continues to complain of pain in her feet, but slightly improved over the last few days. She is ambulating more with PT. Respiratory symptoms improved.] Objective: [ Vital Signs: Temp Pulse Resp BP Pulse Ox 97.7 F 84 19 118/88 95 06/16/19 07:15 06/16/19 07:52 06/16/19 08:35 06/16/19 07:15 06/16/19 07:52 Acetaminophen (Tylenol Tab*) 650 mg PO Q4H PRN PRN Reason: PAIN - MILD Last Admin: 06/16/19 08:36 Dose: 650 mg Albuterol (Ventolin Hfa Inhaler*) 1 puff INH Q4H PRN PRN Reason: SOB/WHEEZING Albuterol/Ipratropium (Duoneb (Albuterol 2.5 Mg/Ipratropium 0.5 Mg)) 1 neb INH Q4H PRN PRN Reason: SOB/WHEEZING Last Admin: 06/12/19 22:18 Dose: 1 neb Alprazolam (Xanax Tab*) 0.25 mg PO BID PRN PRN Reason: ANXIETY Last Admin: 06/15/19 20:37 Dose: 0.25 mg Carvedilol (Coreg Tab*) 6.25 mg PO BID [facility] Last Admin: 06/16/19 08:36 Dose: 6.25 mg Colchicine (Colcrys*) 0.3 mg PO DAILY [facility] Last Admin: 06/16/19 08:34 Dose: 0.3 mg Dextrose (Dextrose 50% Vial 50 Ml*) 25 ml IV PUSH .FOR FS < 60 - SS PRN PRN Reason: FS < 60 Diltiazem HCl (Cardizem Cd Cap*) 180 mg PO DAILY [facility] Last Admin: 06/16/19 08:36 Dose: 180 mg Furosemide (Lasix Tab*) 60 mg PO DAILY [facility] Last Admin: 06/16/19 08:35 Dose: 60 mg Gabapentin (Neurontin Cap(*)) 300 mg PO BID [facility] Last Admin: 06/16/19 08:35 Dose: 300 mg Guaifenesin (Mucinex*) 600 mg PO BID [facility] Last Admin: 06/16/19 08:36 Dose: 600 mg Insulin Human Lispro (Humalog*) 0 units SUBCUT ACHS [facility]; Protocol Last Admin: 06/16/19 07:37 Dose: Not Given Nicotine (Nicotine Patch 14 Mg/24 Hr*) 1 patch TRANSDERM DAILY [facility] Last Admin: 06/16/19 08:32 Dose: 1 patch Nystatin (Nystatin Top Powder*) 1 applic TOPICAL BID [facility] Last Admin: 06/16/19 08:42 Dose: 1 applic Ondansetron HCl (Zofran Inj*) 4 mg IV Q4H PRN PRN Reason: NAUSEA/VOMITING Oxycodone HCl (Roxycodone Tab*) 5 mg PO Q4H PRN PRN Reason: PAIN - MODERATE Pharmacy Profile Note (Nicotine Patch Removal Note*) 1 note PATCH OFF 2100 [facility] Polyethylene Glycol/Electrolytes (Miralax*) 17 gm PO DAILY [facility] Last Admin: 06/16/19 08:42 Dose: Not Given Prednisone (Deltasone 20 Mg Tab) 40 mg PO DAILY [facility] Quetiapine Fumarate (Seroquel Tab*) 200 mg PO BEDTIME [facility] Last Admin: 06/15/19 20:37 Dose: 200 mg Rivaroxaban (Xarelto(*)) 20 mg PO DAILY [facility] Last Admin: 06/16/19 08:36 Dose: 20 mg Simethicone (Mylicon Tab*) 80 mg PO Q6H PRN PRN Reason: INDIGESTION Last Admin: 06/16/19 08:31 Dose: 80 mg Tiotropium [place] (Spiriva Respimat 2.5 Mcg) 2 puff INH DAILY [facility] Last Admin: 06/16/19 07:51 Dose: 2 puff Laboratory Results - last 24 hr 06/15/19 06/15/19 06/15/19 05:15 05:35 12:18 WBC RBC Hgb Hct MCV MCH MCHC RDW Plt Count MPV Neut % (Auto) Lymph % (Auto) [place] % (Auto) Eos % (Auto) Baso % (Auto) Absolute Neuts (auto) Absolute Lymphs (auto) Absolute Monos (auto) Absolute Eos (auto) Absolute Basos (auto) Absolute Nucleated RBC Nucleated RBC % ESR 59 H Sodium Potassium Chloride Carbon Dioxide Anion Gap BUN Creatinine Est GFR ( Amer) Est GFR (Non-Af Amer) BUN/Creatinine Ratio Glucose POC Glucose (mg/dL) 147 H Calcium Magnesium Total Bilirubin AST ALT Alkaline Phosphatase C-Reactive Protein 17.93 H Total Protein Albumin Globulin Albumin/Globulin Ratio 06/15/19 06/15/19 06/16/19 16:51 19:39 05:55 WBC RBC Hgb Hct MCV MCH MCHC RDW Plt Count MPV Neut % (Auto) Lymph % (Auto) [place] % (Auto) Eos % (Auto) Baso % (Auto) Absolute Neuts (auto) Absolute Lymphs (auto) Absolute Monos (auto) Absolute Eos (auto) Absolute Basos (auto) Absolute Nucleated RBC Nucleated RBC % ESR Sodium 139 Potassium 5.1 H Chloride 102 Carbon Dioxide 34 H Anion Gap 3 BUN 57 H Creatinine 1.08 H Est GFR ( Amer) 62.0 Est GFR (Non-Af Amer) 51.2 BUN/Creatinine Ratio 52.8 H Glucose 106 H POC Glucose (mg/dL) 174 H 192 H Calcium 8.5 L Magnesium 2.2 Total Bilirubin 0.30 AST 9 L ALT 35 Alkaline Phosphatase 56 C-Reactive Protein Total Protein 5.4 L Albumin 2.8 L Globulin 2.6 Albumin/Globulin Ratio 1.1 06/16/19 06/16/19 05:55 07:33 WBC 5.8 RBC 3.33 L Hgb 8.9 L Hct 28 L MCV 83 MCH 27 MCHC 32 RDW 17 H Plt Count 239 MPV 8.4 Neut % (Auto) 46.3 Lymph % (Auto) 43.3 [place] % (Auto) 10.1 Eos % (Auto) 0.1 Baso % (Auto) 0.2 Absolute Neuts (auto) 2.7 Absolute Lymphs (auto) 2.5 Absolute Monos (auto) 0.6 Absolute Eos (auto) 0.0 Absolute Basos (auto) 0.0 Absolute Nucleated RBC 0.0 Nucleated RBC % 0.5 ESR Sodium Potassium Chloride Carbon Dioxide Anion Gap BUN Creatinine Est GFR ( Amer) Est GFR (Non-Af Amer) BUN/Creatinine Ratio Glucose POC Glucose (mg/dL) 112 H Calcium Magnesium Total Bilirubin AST ALT Alkaline Phosphatase C-Reactive Protein Total Protein Albumin Globulin Albumin/Globulin Ratio Exam: Gen: relatively well appearing and in NAD, sitting up at bedside and ambulating with PT staff a few feet to the commode HEENT: MMM CV: distant heart sounds Resp: no w/c/r Abd: soft and non TTP Ext: trace to 1+ LLE, trace RLE - nonTTP Psych: alert and appropriately oriented] Assessment: Complicated 63 yo morbidly obese female with systolic CHF, Afib, COPD, NIDDM, FRANCIS and mantle cell lymphoma recently restarted on therapy with rituxumab and revlimid, presenting with bilateral foot pain of unclear etiology and lethargy. Her lethargy has resolved and is likely related to medication administration at home. Pain is improved since addition of colchicine. Ddx for foot pain includes gout v neuropathic pain. Plan: Foot pain: - neuropathic pain v gout - cont gabapentin, steroids and colchicine - stop tramadol and start oxycodone for improved pain control COPD: - improved, start to taper po steroids - cont PRN nebs and scheduled spiriva Afib w RVR now improved: - lower dose coreg and diltiazem , switch to long acting cardizem again - Dr. Jc switched back to Xeralto 20 mg daily given improved creatinine CHF - no evidence of acute exacerbation DM: - HbA1c 5.8% and not on any diabetic meds at home - insulin sliding scale and FS given acute illness and steroids Mantle cell lymphoma: - just started revlimid/rituxan, s/p C1 acute on chronic kidney failure: - improved, hold additional fluids for now Thrush: - cont. nystatin swish and spit Weakness, multi-factorial: - improving full code Dispo: she is clinically improving and would like avoid ROXANA, anticipate better pain control with oxycodone and hopeful for dc home likely tomorrow
[2019-06-16] MEDS: oxyCODONE TAB* 5 MG TAB PO PRN (11:56)
--- NOTE | 2019-06-16 14:11 | PN ---
Progress Note - Progress Note Date of Service: 06/16/19 SOAP: Subjective: [The pt ws seen this am sitting up in bed. She is doing better. States that she has pain in both feet in the MTP joints. She states that the pain is getting better with colchicine. She denies any fevers, chills, night sweats. ] Objective: [Alert and oriented x3. Pleasant mood, appropriate affect. Bilateral lower extremities: The patient's skin is intact. No abrasions or open wounds. Extreme tenderness to palpation along the MTP joint. No palpable masses or fluid collections around her bilateral feet. No erythema or obvious cellulitis. She demonstrates dorsiflexion and plantar flexion strength. She has tenderness along the plantar fascia of both feet, 2+ palpable DP pulses.] Vital Signs Temp 97.6 F 06/16/19 11:15 Pulse 88 06/16/19 11:15 Resp 17 06/16/19 11:56 BP 117/77 06/16/19 11:15 Pulse Ox 98 06/16/19 11:15 Intake & Output 06/15/19 06/16/19 06/16/19 18:59 06:59 18:59 Intake Total 1330 1920 470 Output Total 1725 2675 Balance -395 -755 470 Weight 340 lb Intake: IV Fluids 0 Normal saline 0 IVPB 0 Normal saline 0 Oral 1330 1920 470 Output: [place] 1725 2675 Other: Estimated Void Large # Bowel Movements 1 Estimated Stool Amount Medium # Voids 4 Assessment: gout v neuropathic pain. Plan: cont gabapentin, steroids and colchicine WBAT PT if needed for mobilization Continue to monitor for signs of infection.
[2019-06-16] MEDS: QUEtiapine TAB* 100 MG PO SCH (20:51)
[2019-06-16] MEDS: ALPRAZolam TAB* 0.25 MG PO PRN (20:52)
[2019-06-16] MEDS: Nicotine Patch Removal NOTE PATCH OFF SCH (20:53)
[2019-06-16] MEDS ORDERED: Lidocaine 2.5%/Prilocain 2.5%* 5 GM TUBE TOPICAL ONE (22:00)
[2019-06-17] MEDS: oxyCODONE TAB* 5 MG TAB PO PRN ×4 (03:14→21:34)
[2019-06-17] MEDS: SPIRIVA Respimat* (tiotropium) 2.5 mcg/inh Inhaler INH SCH (07:57)
[2019-06-17] MEDS: Insulin LISPRO* 1 UNITS UNIT SUBCUT SCH ×4 (08:04→21:23)
[2019-06-17] MEDS: ALPRAZolam TAB* 0.25 MG PO PRN ×2 (08:10→21:34)
[2019-06-17] MEDS: Nicotine PATCH 14 MG/24 HR* PATCH TRANSDERM SCH (08:11)
[2019-06-17] MEDS: Colchicine* 0.6 MG TAB PO SCH (08:11)
[2019-06-17] MEDS: Carvedilol TAB* 6.25 MG PO SCH ×2 (08:11→21:22)
[2019-06-17] MEDS: Gabapentin CAP(*) 300 MG PO SCH ×2 (08:12→21:22)
[2019-06-17] MEDS: Diltiazem CD CAP* 180 MG PO SCH (08:12)
[2019-06-17] MEDS: Furosemide TAB* 20 MG PO SCH (08:12)
[2019-06-17] MEDS: Polyethylene Glycol 3350* 17 GM PACKET PO SCH (08:13)
[2019-06-17] MEDS: Rivaroxaban TAB(*) 20 MG TAB PO SCH (08:13)
[2019-06-17] MEDS: guaiFENesin ER TAB 600 MG PO SCH ×2 (08:13→21:22)
[2019-06-17] MEDS: Nystatin TOP POWDER* 15 GM BTL TOPICAL SCH ×2 (09:42→21:23)
--- NOTE | 2019-06-17 11:31 | PN ---
Progress Note - Progress Note Date of Service: 06/17/19 SOAP: Subjective: [] Slow improvement, feet are better. Walked about 5 ft yesterday to bathroom and did better using walker with wheels. Eating well, worried about blood sugars. Willing to go home tomorrow but does not want to go home today. Acetaminophen (Tylenol Tab*) 650 mg PO Q4H PRN PRN Reason: PAIN - MILD Last Admin: 06/16/19 08:36 Dose: 650 mg Albuterol (Ventolin Hfa Inhaler*) 1 puff INH Q4H PRN PRN Reason: SOB/WHEEZING Albuterol/Ipratropium (Duoneb (Albuterol 2.5 Mg/Ipratropium 0.5 Mg)) 1 neb INH Q4H PRN PRN Reason: SOB/WHEEZING Last Admin: 06/12/19 22:18 Dose: 1 neb Alprazolam (Xanax Tab*) 0.25 mg PO BID PRN PRN Reason: ANXIETY Last Admin: 06/17/19 08:10 Dose: 0.25 mg Carvedilol (Coreg Tab*) 6.25 mg PO BID [facility] Last Admin: 06/17/19 08:11 Dose: 6.25 mg Colchicine (Colcrys*) 0.3 mg PO DAILY [facility] Last Admin: 06/17/19 08:11 Dose: 0.3 mg Dextrose (Dextrose 50% Vial 50 Ml*) 25 ml IV PUSH .FOR FS < 60 - SS PRN PRN Reason: FS < 60 Diltiazem HCl (Cardizem Cd Cap*) 180 mg PO DAILY [facility] Last Admin: 06/17/19 08:12 Dose: 180 mg Furosemide (Lasix Tab*) 60 mg PO DAILY [facility] Last Admin: 06/17/19 08:12 Dose: 60 mg Gabapentin (Neurontin Cap(*)) 300 mg PO BID [facility] Last Admin: 06/17/19 08:12 Dose: 300 mg Guaifenesin (Mucinex*) 600 mg PO BID [facility] Last Admin: 06/17/19 08:13 Dose: 600 mg Heparin Sodium (Porcine) (Heparin Flush Port (Ivad)) 5 ml FLUSH DAILY [facility]; Protocol Last Admin: 06/17/19 08:46 Dose: Not Given Insulin Human Lispro (Humalog*) 0 units SUBCUT ACHS [facility]; Protocol Last Admin: 06/17/19 08:04 Dose: Not Given Nicotine (Nicotine Patch 14 Mg/24 Hr*) 1 patch TRANSDERM DAILY [facility] Last Admin: 06/17/19 08:11 Dose: 1 patch Nystatin (Nystatin Top Powder*) 1 applic TOPICAL BID [facility] Last Admin: 06/17/19 09:42 Dose: 1 applic Ondansetron HCl (Zofran Inj*) 4 mg IV Q4H PRN PRN Reason: NAUSEA/VOMITING Oxycodone HCl (Roxycodone Tab*) 5 mg PO Q4H PRN PRN Reason: PAIN - MODERATE Last Admin: 06/17/19 08:12 Dose: 5 mg Pharmacy Profile Note (Nicotine Patch Removal Note*) 1 note PATCH OFF 2100 [facility] Last Admin: 06/16/19 20:53 Dose: Not Given Polyethylene Glycol/Electrolytes (Miralax*) 17 gm PO DAILY [facility] Last Admin: 06/17/19 08:13 Dose: Not Given Prednisone (Deltasone 20 Mg Tab) 40 mg PO DAILY [facility] Last Admin: 06/17/19 08:13 Dose: 40 mg Quetiapine Fumarate (Seroquel Tab*) 200 mg PO BEDTIME [facility] Last Admin: 06/16/19 20:51 Dose: 200 mg Rivaroxaban (Xarelto(*)) 20 mg PO DAILY [facility] Last Admin: 06/17/19 08:13 Dose: 20 mg Simethicone (Mylicon Tab*) 80 mg PO Q6H PRN PRN Reason: INDIGESTION Last Admin: 06/16/19 16:41 Dose: 80 mg Tiotropium [place] (Spiriva Respimat 2.5 Mcg) 2 puff INH DAILY [facility] Last Admin: 06/17/19 07:57 Dose: Not Given Objective: [] Vital Signs Temp Pulse Resp BP Pulse Ox 97.2 F 84 18 123/89 95 06/17/19 07:15 06/17/19 07:57 06/17/19 10:48 06/17/19 07:15 06/17/19 07:57 Exam: Gen: relatively well appearing and in NAD, sitting up at bedside and ambulating with PT staff a few feet to the commode HEENT: MMM, no thrush. CV: distant heart sounds Resp: no w/c/r Abd: soft and non TTP Ext: trace to 1+ LLE, slight redness, not tender to tough. trace RLE - nonTTP Psych: alert and appropriately oriented] Assessment: Complicated 63 yo morbidly obese female with systolic CHF, Afib, COPD, NIDDM, FRANCIS and mantle cell lymphoma recently restarted on therapy with rituxumab and revlimid, presenting with bilateral foot pain most consistent with gout. Lymphocyte destruction on therapy as possible trigger. She is improving on Prednisone and Colchicine. Plan: 1. Foot pain. Slow improvement. - cont gabapentin, Prednisone 40 mg po daily and colchicine 0.3 mg po daily - will discharge on Oxycodone 2. COPD: - improved, follow as steroids taper. - cont PRN nebs and scheduled spiriva 3. Afib w RVR now improved: - No change in medication. - Dr. Jc switched back to Xeralto 20 mg daily given improved creatinine 4. CHF - no evidence of acute exacerbation 5. DM: - HbA1c 5.8% and not on any diabetic meds at home - insulin sliding scale and FS given acute illness and steroids - Will need augmented therapy on steroids. 6. Mantle cell lymphoma: - f/u Dr. Jc after discharge to continue revlimid/rituxan, s/p C1 7. acute on chronic kidney failure: - improved, hold additional fluids for now 8. Thrush: - cont. nystatin swish and spit 9. Likley d/c tomorrow on oxycodone, colchicine, prednisone
--- NOTE | 2019-06-17 11:48 | PN ---
Progress Note - Progress Note Date of Service: 06/17/19 SOAP: Subjective: Pt is doing well. Pain in her feet is improving. Able to WB more comfortably. Reports mild ache in knees. Denies F/C, CP/SOB or calf pain. No N/T Objective: PE- 63 y/o WDWN F NAD B/L lower extremities- skin intact, no warmth or erythema, diffuse LE edema, minimal tenderness over the B/L 1st MTP, able to F/E knee ankle and toes with minimal discomfort, no obvious knee effusion, calf soft NT, +2 Dp pulse, SILT distally Vital Signs Temp Pulse Resp BP Pulse Ox 97.2 F 84 18 123/89 95 06/17/19 07:15 06/17/19 07:57 06/17/19 10:48 06/17/19 07:15 06/17/19 07:57 Laboratory Results - last 24 hr 06/16/19 06/16/19 06/16/19 11:49 16:41 20:22 POC Glucose (mg/dL) 135 H 133 H 164 H 06/17/19 06/17/19 07:47 11:34 POC Glucose (mg/dL) 114 H 152 H Assessment: B/L feet gout v neuropathic pain. Plan: cont gabapentin, steroids and colchicine, symptoms improving WBAT PT for mobilization Continue to monitor for signs of infection. None at this time F/U outpatient with Dr. Tabares in about 14 days
--- NOTE | 2019-06-17 13:34 | DS ---
DISCHARGE SUMMARY: DATE OF ADMISSION: 06/09/19 DATE OF DISCHARGE: 06/18/19 DISCHARGE DIAGNOSES: 1. Mantle cell lymphoma, status post restarting chemotherapy. 2. Gout. 3. Chronic renal insufficiency. 4. Congestive heart failure. 5. Diabetes. HOSPITAL COURSE: She came in on 06/09/19 with severe pain in both her feet, left over right. Left footwear stitcher to palpation. Pain has been going for approximately 1 week and was following restarting chemotherapy for her mantle cell lymphoma. Initial etiology unclear. She had an elevated uric acid in consultation by Dr. Tabares. Ultimately determined to have gouty arthritis. She was started on prednisone 40 mg p.o. daily and colchicine 0.3 mg p.o. daily. After 3 to 4 days of treatment, her pain improved significantly. Yesterday, she was able to walk approximately 5 to 10 feet, was getting back to go to the commode. She has a grandson who is there at home with her and her that is supportive. Tolerating colchicine without diarrhea. She had an elevated creatinine of 1.86 on admission, slightly up from her baseline. After IV fluids, she is down to 1.08. Uric acid was 10, recheck was 9.4. History of congestive heart failure. She was on telemetry during the admission. One episode of 6 beats of V-tach. She has a pacemaker, AICD. She had an echocardiogram repeated and EF was 40%. Normal potassium and magnesium. The pain has been an issue through the hospitalization. She was on tramadol, then changed to oxycodone which improved her symptoms significantly. She was on oxycodone on discharge. Plan will be to discharge and follow up with Dr. Jc within 1 week to determine additional therapy. She will go home on colchicine, prednisone, no allopurinol. MEDICATIONS ON DISCHARGE: 1. Colchicine 0.3 mg p.o. daily. 2. Gabapentin 300 mg p.o. b.i.d. 3. Prednisone 40 mg p.o. daily. 4. Albuterol metered dose inhaler 2 puffs q.6 hours p.r.n. 5. Alprazolam 0.25 mg p.o. b.i.d. p.r.n. 6. Atorvastatin 20 mg p.o. daily. 7. Calcium 500 mg chewable daily. 8. Carvedilol 25 mg p.o. b.i.d. 9. Cyclobenzaprine 10 mg p.o. q.8 hours p.r.n. 10. Diltiazem 180 mg q.24 hours. 11. Docusate 100 mg p.o. b.i.d. 12. Oxycodone 5 mg p.o. q.4. 13. Potassium 20 mEq b.i.d. 14. Seroquel 200 mg p.o. at h.s. 15. Rivaroxaban 20 mg p.o. daily. 16. Spironolactone 50 mg p.o. daily. 17. Trazodone 50 mg p.o. q.h.s. Holding tramadol and Percocet. Drug interaction to diltiazem and colchicine, diltiazem raises the level of colchicine. She is on half dose. She will call our office with any questions or concerns over the week and after discharge. Return to see Dr. Jc next week. Continue prednisone and do not _ prior to seeing Dr. Jc. [id number]/[facility] #: [id number] [facility]
[2019-06-17] MEDS: QUEtiapine TAB* 100 MG PO SCH (21:23)
[2019-06-17] MEDS: Nicotine Patch Removal NOTE PATCH OFF SCH (21:34)
[2019-06-18] MEDS: oxyCODONE TAB* 5 MG TAB PO PRN ×2 (03:37→07:30)
[2019-06-18] MEDS: Gabapentin CAP(*) 300 MG PO SCH (07:30)
[2019-06-18] MEDS: Carvedilol TAB* 6.25 MG PO SCH (07:30)
[2019-06-18] MEDS: Colchicine* 0.6 MG TAB PO SCH (07:31)
[2019-06-18] MEDS: guaiFENesin ER TAB 600 MG PO SCH (07:31)
[2019-06-18] MEDS: Furosemide TAB* 20 MG PO SCH (07:31)
[2019-06-18] MEDS: Polyethylene Glycol 3350* 17 GM PACKET PO SCH ×2 (07:31→07:43)
[2019-06-18] MEDS: Rivaroxaban TAB(*) 20 MG TAB PO SCH (07:31)
[2019-06-18] MEDS: Diltiazem CD CAP* 180 MG PO SCH (07:31)
[2019-06-18] MEDS: Nicotine PATCH 14 MG/24 HR* PATCH TRANSDERM SCH (07:32)
[2019-06-18] MEDS: Nystatin TOP POWDER* 15 GM BTL TOPICAL SCH (07:32)
[2019-06-18] MEDS: Insulin LISPRO* 1 UNITS UNIT SUBCUT SCH ×2 (07:42→12:45)
[2019-06-18] MEDS: ALPRAZolam TAB* 0.25 MG PO PRN (07:50)
[2019-06-18 08:04] VITALS: BP 126/76
[2019-06-18] MEDS: SPIRIVA Respimat* (tiotropium) 2.5 mcg/inh Inhaler INH SCH (08:17)
--- NOTE | 2019-06-18 10:48 | PN ---
Progress Note - Progress Note Date of Service: 06/18/19 SOAP: Subjective: Pt is doing well. Denied F/C, CP/SOB, or calf pain. Pain in feet significantly improved. Objective: PE- 63 y/o WDWN F NAD B/L LE- skin intact, no warmth or erythema, diffuse LE edema, minimal tenderness over the B/L 1st MTP, able to F/E knee ankle and toes with minimal discomfort, no obvious knee effusion, calf soft NT, +2 Dp pulse, SILT distally Vital Signs Temp Pulse Resp BP Pulse Ox 97.1 F 93 20 126/76 99 06/18/19 07:59 06/18/19 08:17 06/18/19 08:17 06/18/19 07:59 06/18/19 08:17 Laboratory Results - last 24 hr 06/17/19 06/17/19 06/17/19 11:34 16:06 21:12 POC Glucose (mg/dL) 152 H 149 H 135 H 06/18/19 07:40 POC Glucose (mg/dL) 103 H Assessment: B/L feet gout v neuropathic pain. Plan: cont gabapentin, steroids and colchicine, symptoms improving WBAT PT for mobilization Continue to monitor for signs of infection. None at this time Patient was instructed of signs of infection and told to call the ortho office right away with any concerns F/U outpatient with Dr. Tabares in about 14 days Orthopedically stable for DC
== END 2019-06-18 12:50 | disposition home health service (06) | DRG 554 ==
LOC: MED 16:45
PROVIDERS: ADMIT Internal Medicine Hematology & Oncology; ATTEND Internal Medicine Hematology & Oncology
DX: M10.9 Gout, unspecified (principal); C83.10 Mantle cell lymphoma, unspecified site; N17.9 Acute kidney failure, unspecified; Z68.43 Body mass index [BMI] 50.0-59.9, adult; I13.0 Hypertensive heart and chronic kidney disease with heart failure and stage 1 through stage 4 chronic kidney disease, or unspecified chronic kidney disease; I42.9 Cardiomyopathy, unspecified; I47.2 Ventricular tachycardia; J44.1 Chronic obstructive pulmonary disease with (acute) exacerbation; B37.0 Candidal stomatitis; I50.22 Chronic systolic (congestive) heart failure; I48.91 Unspecified atrial fibrillation; J44.9 Chronic obstructive pulmonary disease, unspecified; I25.10 Atherosclerotic heart disease of native coronary artery without angina pectoris; E11.22 Type 2 diabetes mellitus with diabetic chronic kidney disease; E66.01 Morbid (severe) obesity due to excess calories; E86.0 Dehydration; E78.5 Hyperlipidemia, unspecified; E11.42 Type 2 diabetes mellitus with diabetic polyneuropathy; G47.33 Obstructive sleep apnea (adult) (pediatric); D64.9 Anemia, unspecified; N18.9 Chronic kidney disease, unspecified; K59.00 Constipation, unspecified; I95.9 Hypotension, unspecified; E87.5 Hyperkalemia; R09.02 Hypoxemia; Z95.810 Presence of automatic (implantable) cardiac defibrillator; Z88.6 Allergy status to analgesic agent; Z99.81 Dependence on supplemental oxygen; Z79.01 Long term (current) use of anticoagulants; Z79.52 Long term (current) use of systemic steroids
CPT/HCPCS: 36415; 36600; 71046; 80048; 80053; 81003; 82565; 82803; 83036; 83605; 83735; 83880; 84520; 84550; 85025; 85652; 85730; 86140; 93306; 93970; 94640; 99222; 99232; 99233; A9270-GY; C8929; G8978-GP-CJ; G8979-GP-CI; J1642; J1644; J1940; J2920; J3475; J3535; J7512